=== PATIENT | male | born 1955 | race Caucasian/White ===

== ENCOUNTER 2017-01-17 17:24 | Inpatient (IN) | payer OTHER, MEDICAID ==
[~2017-01-17] VITALS: Ht 172.7 cm; Wt 48.3 kg
[~2017-01-17 17:24] MED LIST: AZIT500T4; BUDE10.2 IH; DIGO250T; ESCI10TA; ETHA400T; IPRA3AMP; MEGE400O2; PROAIR HFA8.5 GM; PROAIR HFA8.5 GM IH; RIFA300C3; TEMA15CA; TIOT18CA IH
[2017-01-17] MEDS ORDERED: methylPREDNISolone SOD SUCC PF 125 MG/2 ML VIAL. IV ONE (18:45)
[2017-01-17] MEDS ORDERED: ACETAMINOPHEN 325 MG TABLET. PO PRN (18:45)
[2017-01-17] MEDS ORDERED: IPRATRPIUM/ALBUTEROL 0.5/2.5MG 3 ML NEBU. NEB ONE (18:45)
[2017-01-17] MEDS: ONDANSETRON PF 4 MG/2 ML VIAL. IV PRN (18:58)
[2017-01-17 19:38] LABS: CREATININE 0.9 mg/dL (0.7-1.3); GFR 85.5; POTASSIUM 4.1 mmol/L (3.5-5.1)
[2017-01-17 19:39] LABS: BASO # 0.1 x10^3/uL (0.0-0.2); BASO % 1 % (0-3); EOS % 2 % (0-3); HEMOGLOBIN 12.2 g/dL (13.0-17.5); LYMPH # 0.9 x10^3/uL (1.0-4.8); LYMPH % 15 % (24-48); MEAN CORPUSCULAR HEMOGLOBIN 31 pg (25-35); MEAN CORPUSCULAR HGB CONC 33 g/dL (31-37); MEAN CORPUSCULAR VOLUME 94 fL (79-100); MONO % 9 % (0-9); NEUT % 73 % (31-73); PLATELET COUNT 305 x10^3/uL (140-400); RED BLOOD COUNT 3.92 x10^6/uL (4.30-5.70); RED CELL DISTRIBUTION WIDTH 14.9 % (11.5-14.5); WHITE BLOOD COUNT 5.9 x10^3/uL (4.0-11.0)
[2017-01-17 19:44] LABS: ALBUMIN 3.1 g/dL (3.4-5.0); ALBUMIN/GLOBULIN RATIO 0.6 (1.0-1.7); TOTAL BILIRUBIN 0.3 mg/dL (0.2-1.0); TOTAL PROTEIN 8.5 g/dL (6.4-8.2)
[2017-01-17 19:47] LABS: OBC FLU VALID
[2017-01-17] MEDS: IPRATRPIUM/ALBUTEROL 0.5/2.5MG 3 ML NEBU. NEB SCH (20:59)
[2017-01-17 22:45] VITALS: BP 106/61
[2017-01-17 23:31] VITALS: BP 106/61
--- NOTE | 2017-01-17 23:58 | PHYS DOC ---
Past Medical History Past Medical History: COPD, Pneumonia Additional Past Medical Histor: CARDIOMYOPATHY, MAC Past Surgical History: Other Additional Past Surgical Histo: bronchoscopy Alcohol Use: Occasionally Drug Use: Cocaine Adult General Chief Complaint Chief Complaint: SHORTNESS OF BREATH HPI HPI Patient is a 61 year old gentleman whose history significant for COPD presents to the ER today complaining of shortness of breath and generalized weakness. Patient reports that he was so weak earlier today that he felt his knees. Patient reports she been short of breath all day which is usual for him however he feels like he's been more short of breath than usual. Patient reports she lives alone. Patient has any fevers shaking chills. Patient reports he has a nonproductive cough which is chronic for him and has not changed. Patient reports he does not use any oxygen at home however he does have nebulizers. Patient denies any history of hypertension diabetes liver or kidney problems. Patient has no surgeries. Patient no longer smokes tracers does drugs. Patient is allergic to any medications. Patient's primary care physician is Dr. Pro and he reports that his saw straightener is Dr. Dorsey. Patient reports she does have a history significant for COPD and cardio myopathy. Patient's physical exam is significant for diminished breath sounds throughout. Patient is tachypneic and having a hard time speaking in full sentences. Patient is tachycardic heart rate of 105. EKG revealed sinus rhythm at 87 with no evidence of acute ischemia and PACs. Patient received albuterol by EMS as well as in the ED with Combivent included. Patient did improve however he is still pretty tachypneic and does not feel comfortable going home. Patient was given IV Cipro Medrol the ER and will be admitted for further oxygen and management of his dyspnea. The case was discussed with Dr. Knox and she has agreed to except the patient for further evaluation and treatment and management as an inpatient. Review of Systems Review of Systems Constitutional: Denies fever or chills [] Eyes: Denies change in visual acuity, redness, or eye pain [] All other review systems are negative except as documented in the history of present illness portion. Allergies Allergies Allergies Coded Allergies Type Severity Reaction Last Updated Verified No Known Drug Allergies 02/02/16 No Physical Exam Physical Exam Constitutional: Well developed, well nourished, no acute distress, non-toxic appearance. [] HENT: Normocephalic, atraumatic, bilateral external ears normal, oropharynx moist, no oral exudates, nose normal. [] Eyes: PERRLA, EOMI, conjunctiva normal, no discharge. [] Neck: Normal range of motion, no tenderness, supple, no stridor. [] Cardiovascular:Heart rate regular rhythm, no murmur [] Lungs & Thorax: Diminished Breath sounds bilaterally Abdomen: Bowel sounds normal, soft, no tenderness, no masses, no pulsatile masses. [] Skin: Warm, dry, no erythema, no rash. [] Back: No tenderness, no CVA tenderness. [] Extremities: No tenderness, no cyanosis, no clubbing, ROM intact, no edema. [] Neurologic: Alert and oriented X 3, normal motor function, normal sensory function, no focal deficits noted. [] Psychologic: Affect normal, judgement normal, mood normal. [] Current Patient Data Vital Signs Vital Signs Date Time Temp Pulse Resp B/P Pulse Ox O2 Delivery O2 Flow Rate FiO2 01/17/17 17:34 97.8 86 36 120/75 94 Room Air 97.8 EKG EKG [] Radiology/Procedures Radiology/Procedures [] Unchanged from prior chest x-ray labs unremarkable Course & Med Decision Making Course & Med Decision Making Pertinent Labs and Imaging studies reviewed. (See chart for details) [] Dragon Disclaimer Dragon Disclaimer This electronic medical record was generated, in whole or in part, using a voice recognition dictation system. Departure Departure Impression: Primary Impression: COPD (chronic obstructive pulmonary disease) Additional Impressions: COPD exacerbation Failure to thrive Disposition: ADMITTED INPATIENT Admitting Physician: Deborah Keith Condition: GUARDED Referrals: DEBORAH KEITH MD (PCP) Problem Qualifiers DYLAN SARAVIA MD Jan 17, 2017 23:58
--- NOTE | 2017-01-18 00:10 | ACF ---
Admission Forms Criteria COPD Clinical Indications for Admission to Inpatient Care (Place 'X' for any and all applicable criteria): Admission is indicated for ANY ONE of the following (1)(2)(3): [ X]I. Acute exacerbation by high-risk comorbidity (e.g., pneumonia, dysrhythmia, heart failure, pleural effusion, pneumothorax) or severe underlying COPD (e.g., steroid dependent) [ ]II. Inpatient admission required rather than observation care (see Chronic Obstructive Pulmonary Disease: Observation Care) because of ANY ONE of the following: [ ]a) New or pre-existing signs or symptoms of COPD (eg, dyspnea or Tachypnea at rest or with minimal activity) that persist despite outpatient and observation care treatment [ ]b) New-onset hypoxemia (room air SaO2 less than 90%, PO2 less than 60 mm Hg (8.0 kPa)) that persists despite outpatient and observation care treatment [ ]c) Worsening of pre-existing hypoxemia (eg, new or increased requirement for supplemental oxygen to maintain oxygenation at baseline level) that persists despite outpatient and observation care treatment, with oxygen treatment needs performable only in acute inpatient setting [ ]d) Hypercarbia (PCO2 greater than 40 mm Hg (5.3 kPa))-induced respiratory acidosis (pH less than 7.35) that persists despite outpatient and observation care treatment [ ]e) Supplemental oxygen or respiratory treatments for over 24 hours that are performable only in acute inpatient setting [ ]f) Chest tube placement with active evacuation (e.g., suction, drainage) (5) [ ]g) Other condition, treatment or monitoring requiring inpatient admission [ ]III. Planned invasive surgical or diagnostic procedures requiring acute- care hospitalization [ ]IV. Acute respiratory failure (e.g., uncompensated hypercarbia, severe hypoxemia) [ ]V. Severe comorbid condition (e.g., severe steroid myopathy, acute vertebral fracture) that has acutely worsened pulmonary function [ ]. Confusion state, lethargy, obtundation, stupor or coma Extended stay beyond goal length of stay may be needed for (31)(32): [ ]a ) Respiratory Failure. [ ]b) Severe or persisting hypoxemia or hypercarbia [ ]c) Severe or persistent dyspnea [ ]d) Comorbidities (e.g. chronic heart failure, atrial fibrillation with rapid response, pneumonia) [ ]e) Malnutrition The original [facility] content created by [facility] has been revised. The portions of the content which have been revised are identified through the use of italic text or in bold, and [facility] has neither reviewed nor approved the modified material. All other unmodified content is copyright [facility]. Please see references footnoted in the original [facility] edition 2016 Admission Criteria Met?: Yes HARDY JONES Jan 18, 2017 00:10
[2017-01-18] MEDS ORDERED: IPRATRPIUM/ALBUTEROL 0.5/2.5MG 3 ML NEBU. NEB ONE (02:00)
[2017-01-18 03:00] VITALS: BP 93/54
[2017-01-18 06:13] LABS: BILIRUBIN,URINE NEGATIVE (NEG); GLUCOSE,URINE NEGATIVE (NEG); NITRITE,URINE NEGATIVE (NEG); PROTEIN,URINE NEGATIVE (NEG-TRACE); UROBILINOGEN,URINE 0.2 mg/dL (0.2 mg/dL)
[2017-01-18 06:34] LABS: BACTERIA,URINE 0 /HPF (0-FEW); RBC,URINE 0 /HPF (0-2); SQUAMOUS EPITHELIAL CELL,UR FEW /LPF; WBC,URINE 0 /HPF (0-4)
[2017-01-18 07:00] VITALS: BP 94/65
[2017-01-18] MEDS: IPRATRPIUM/ALBUTEROL 0.5/2.5MG 3 ML NEBU. NEB SCH (07:31)
[2017-01-18] MEDS: ONDANSETRON PF 4 MG/2 ML VIAL. IV PRN (07:54)
[2017-01-18] MEDS ORDERED: BUDESONIDE 0.5 MG/2 ML NEBU NEB SCH (08:00)
--- NOTE | 2017-01-18 08:07 | PDOC ---
Provider Note Provider Note [id number] dyspnea abnl cxr mac mild ae of copd bronchodilator. pulmicort anti mac ELIJAH VARELA MD Jan 18, 2017 08:07
--- NOTE | 2017-01-18 08:46 | RAD ---
Indication shortness of air. Cough. AP views of the chest were obtained and are compared to an exam 10/21/2016. Note is made of a CT examination of the chest 11/18/2016. Extensive chronic changes are noted in the chest. There is marked scarring at the left lung apex with associated retraction of the hilum superiorly. There are pleural-parenchymal changes at the left lung base. All these findings are similar to the previous exam. Heart and pulmonary vessels are similar. A significant change in the appearance of the chest when compared to the previous plain film exam is not seen. IMPRESSION: Extensive chronic changes. A definite acute finding or significant change compared to the prior study is not seen
[2017-01-18] MEDS ORDERED: NON FORMULARY ITEM (Budesonide/Formoterol Fumarate (Symbicort 160-4.5 Mcg Inhaler) 2 PUFF) IH SCH (09:00)
[2017-01-18] MEDS ORDERED: ESCITALOPRAM 10 MG TABLET. PO SCH (09:00)
[2017-01-18] MEDS ORDERED: riFAMpin 300 MG CAPSULE. PO SCH (09:00)
[2017-01-18] MEDS ORDERED: MEGESTROL 400 MG/10 ML ORAL.SUSP. PO SCH (09:00)
[2017-01-18] MEDS ORDERED: DIGOXIN 250 MCG TABLET PO SCH (09:00)
[2017-01-18] MEDS ORDERED: NON FORMULARY ITEM (Tiotropium Bromide (Spiriva) 1 CAP) IH SCH (09:00)
[2017-01-18] MEDS ORDERED: PREDNISONE 20 MG TABLET PO SCH (09:00)
[2017-01-18] MEDS ORDERED: PRED20TA PO (10:28)
[2017-01-18] MEDS ORDERED: LEVO500T38 PO (10:28)
--- NOTE | 2017-01-18 10:36 | PDOC3 ---
DATE OF ADMISSION Date of Admission 01/17/17 DATE OF DISCHARGE Discharge Date 01/18/17 CONSULTS Consults Pulmonary PROCEDURES Procedures CXR- extensive chronic changes, no definitive acute findings LABS Labs Laboratory Tests Test 01/17/17 19:00 01/17/17 19:15 01/18/17 05:50 Influenza Type A Antigen Negative (NEGATIVE) Influenza Type B Antigen Negative (NEGATIVE) White Blood Count 5.9x10^3/uL (4.0-11.0) Red Blood Count 3.92x10^6/uL (4.30-5.70) Hemoglobin 12.2g/dL (13.0-17.5) Hematocrit 37.0% (39.0-53.0) Mean Corpuscular Volume 94fL (79-100) Mean Corpuscular Hemoglobin 31pg (25-35) Mean Corpuscular Hemoglobin Concent 33g/dL (31-37) Red Cell Distribution Width 14.9% (11.5-14.5) Platelet Count 305x10^3/uL (140-400) Neutrophils (%) (Auto) 73% (31-73) Lymphocytes (%) (Auto) 15% (24-48) Monocytes (%) (Auto) 9% (0-9) Eosinophils (%) (Auto) 2% (0-3) Basophils (%) (Auto) 1% (0-3) Neutrophils # (Auto) 4.3x10^3uL (1.8-7.7) Lymphocytes # (Auto) 0.9x10^3/uL (1.0-4.8) Monocytes # (Auto) 0.5x10^3/uL (0.0-1.1) Eosinophils # (Auto) 0.1x10^3/uL (0.0-0.7) Basophils # (Auto) 0.1x10^3/uL (0.0-0.2) Sodium Level 136mmol/L (136-145) Potassium Level 4.1mmol/L (3.5-5.1) Chloride Level 100mmol/L (98-107) Carbon Dioxide Level 32mmol/L (21-32) Anion Gap 4 (6-14) Blood Urea Nitrogen 33mg/dL (8-26) Creatinine 0.9mg/dL (0.7-1.3) Estimated GFR (Cockcroft-Gault) 85.5 BUN/Creatinine Ratio 37 (6-20) Glucose Level 148mg/dL (70-99) Calcium Level 10.0mg/dL (8.5-10.1) Total Bilirubin 0.3mg/dL (0.2-1.0) Aspartate Amino Transf (AST/SGOT) 37U/L (15-37) Alanine Aminotransferase (ALT/SGPT) 37U/L (16-63) Alkaline Phosphatase 51U/L (46-116) Troponin I Quantitative < 0.017ng/mL (0.000-0.055) Total Protein 8.5g/dL (6.4-8.2) Albumin 3.1g/dL (3.4-5.0) Albumin/Globulin Ratio 0.6 (1.0-1.7) Urine Collection Type Unknown Urine Color Yellow Urine Clarity Clear Urine pH 6.0 Urine Specific [place] 1.020 Urine Protein Negativemg/dL (NEG-TRACE) Urine Glucose (UA) Negativemg/dL (NEG) Urine Ketones (Stick) Negativemg/dL (NEG) Urine Blood Negative (NEG) Urine Nitrite Negative (NEG) Urine Bilirubin Negative (NEG) Urine Urobilinogen Dipstick 0.2mg/dL (0.2 mg/dL) Urine Leukocyte Esterase Negative (NEG) Urine RBC 0/HPF (0-2) Urine WBC 0/HPF (0-4) Urine Squamous Epithelial Cells Few/LPF Urine Bacteria 0/HPF (0-FEW) Urine Mucus Slight/LPF MEDICATIONS Medications Medications reviewed and reconciled for discharge. CHEIF COMPLAINT Cheif Complaint "Panic" PAST MEDICAL HISTORY PMH Depression, Insomnia, Chronic Bronchitis, Mycobacterium Avium Infection, Severe Debility, Cardiomyopathy, History of pressure ulcers PAST SURGICAL HISTORY PSH Back Surgery x2, Hemorrhoid Surgery SOCIAL HISTORY SH History of smoking, quit 10 years ago. Drinks intermittently, used to drink daily. Single. Lives alone FAMILY HISTORY FH Mom- unknown cancer, Brother- Lung Cancer, Sister- Throat Cancer ALLERGIES Allergies Allergies Coded Allergies Type Severity Reaction Last Updated Verified No Known Drug Allergies 02/02/16 No MEDICATIONS Meds Medications reviewed. REVIEW OF SYSTEMS ROS A 14 point ROS was completed with the following noted as positive: Chronic productive cough with green/yellow sputum, but has thickened over the past couple of days, wheezing yesterday Other systems reviewed and negative. PHYSICAL EXAM Subjective Pt says that he had an episode yesterday where he could not catch his breath and he panicked. He says that he is feeling much better today. The only thing that he has noticed that has been different lately has been thicker productive sputum. He says that he is feeling better now and would like to go home. Objective GEN: cachetic, NAD, AOx3 HEENT: MMM, EOMI, no scleral icterus/injection Cardiac: RRR, no M/R/G Lungs: CTAB, regular breathing rate and effort Abd: non distended, NTTP Ext: no erythema/edema LE bilaterally Nuero: CN2-12 GI Vital Signs Vital Signs Date Time Temp Pulse Resp B/P Pulse Ox O2 Delivery O2 Flow Rate FiO2 01/18/17 09:25 71 94/65 01/18/17 08:00 Room Air 01/18/17 07:31 99 3.0 01/18/17 07:00 97.5 18 97.5 [facility] NOTE [facility] Note Pt is a 61yo CM admitted for COPD Exacerbation 1)COPD Exacerbation- pt is feeling better after receiving initial antibiotics and steroids. Will discharge on Prednisone 50mg qday and Levaquin. Pulmonary was following. 2)Hx MAC- pt on Rifampin daily 3)Cachexia- pt on Megace 4)PEM- mild 5)Cardiomyopathy- pt continued on Digoxin 250mcg 6)Depression- pt continued on Lexapro 7)Anemia- mild, no active bleeding 8)Hypotension- chronic, asymptomatic FOLLOW UP F/U Follow up with PCP within 2 weeks of D/C DISPOSITION Dispo Stable, Improved MARCO MAS MD Jan 18, 2017 10:36
[2017-01-18 10:58] VITALS: BP 96/60
--- NOTE | 2017-01-18 11:39 | EKG ---
[facility] [address] [place] [address] Test Date: 2017-01-17 Test Time: 17:30:32 Pat Name: DELFINO LEONARDO Department: Room: Gender: M [employer] Supervisor: : 1955 Requested By: DYLAN SARAVIA Order Number: [id number] Reading MD: Measurements Intervals [place] Rate: 87 P: 90 AK: 180 QRS: 84 QRSD: 66 T: 111 QT: 340 QTc: 410 Interpretive Statements SINUS RHYTHM ATRIAL PREMATURE COMPLEX(ES) QRS(T) CONTOUR ABNORMALITY CONSISTENT WITH ANTEROSEPTAL INFARCT PROBABLY OLD T ABNORMALITY IN ANTEROLATERAL LEADS INFEROLATERAL LEADS RI6.01 Unconfirmed report No previous ECG available for comparison
[2017-01-18] MEDS ORDERED: IPRATRPIUM/ALBUTEROL 0.5/2.5MG 3 ML NEBU. NEB SCH (12:00)
[2017-01-18] MEDS ORDERED: TEMAZEPAM 15 MG CAPSULE PO SCH (21:00)
--- NOTE | 2017-01-19 00:55 | CONS ---
DATE OF CONSULTATION: 01/18/2017 I was asked to see this 61-year-old gentleman for shortness of breath, cough, abnormal chest x-ray and CT of the chest and COPD exacerbation. HISTORY OF PRESENT ILLNESS: He does have COPD. He is on nebulizer treatment at home. He has MAC, which was diagnosed with Dr. Epstein and he is at home with hospice. He was admitted with increased shortness of breath, cough and he felt weak in his knees. In the Emergency Room, he appeared tachypneic. He improved with nebulizer treatment. He states that he has had increased cough, but it is improved today. He denies fever or chills. He has been weak. He was on Symbicort, which was stopped by Dr. Epstein. He is on medication for MAC. ALLERGIES: No known drug allergies. MEDICATIONS: Currently, he is on albuterol, Atrovent nebulizer. At home, he is on azithromycin, digoxin, ethambutol, Megace, rifampin. PAST MEDICAL HISTORY: COPD, MAC, abnormal chest x-ray and CT of the chest, cardiomyopathy. SOCIAL HISTORY: Positive for history of [id number] smoking, stopped smoking a few months ago. FAMILY HISTORY: There is no history of lung disease. REVIEW OF SYSTEMS: As mentioned as above, he denies runny nose, chest pain, gastroesophageal reflux symptoms. Other systems are otherwise negative. PHYSICAL EXAMINATION: GENERAL: This is a cachectic gentleman. HEENT: Normocephalic, atraumatic. Pupils equal, round, reactive to light. Throat is clear. Nose is clear. He has poor dentition. VITAL SIGNS: O2 saturation is 99% on 3 liters of oxygen, heart rate 69, blood pressure 100/60, temperature 98.4. NECK: There is no JVD, lymphadenopathy or thyromegaly. CARDIOVASCULAR: Regular rate and rhythm. Distant heart sounds. Chest expansion is normal. LUNGS: There are bibasilar crackles, a few end expiratory wheezing. ABDOMEN: Soft. Bowel sounds are good. There is no mass. EXTREMITIES: There is no edema. LYMPHATICS: There is no lymphadenopathy. SKIN: Chronic changes. NEUROLOGIC: Alert and oriented. LABORATORY DATA: I reviewed the following lab data. Chest x-ray shows irregular changes on the left lung. His CT of the chest done in 10/2016 did show cavitary abnormalities in his left apex with airspace opacification and volume loss and emphysematous changes. Sodium 136, potassium 4.1, chloride 100, CO2 of 32, glucose 148, BUN 33, creatinine 0.9. WBC 5.6, hemoglobin 12.2, platelets 305. Influenza A and B negative. IMPRESSION: 1. Dyspnea, multifactorial in etiology. 2. Mild acute exacerbation of chronic obstructive pulmonary disease. 3. Abnormal chest x-ray and CT of the chest. 4. History of MAC. 5. Malnutrition. 6. Ex-smoker. 7. Cardiomyopathy. PLAN AND RECOMMENDATIONS: 1. Titrate FiO2 to keep O2 saturation 92%. 2. Bronchodilator q.i.d. and p.r.n. shortness of breath. 3. Add Pulmicort b.i.d. 4. Continue MAC medication. 5. If the patient is not discharged, he would require DVT prophylaxis. 6. Monitor respiratory status very closely. 7. Code status was discussed with the patient. He would like to be DNR. 8. He would like to go back home with hospice. Thank you very much for allowing me to participate in care of this very nice gentleman. The findings and recommendations were discussed with the patient and RN. I have answered all of the patient's questions. He understood and agreed to proceed with the plan. ELIJAH VARELA M.D. : Richa JOB#: [id number] / [id number] JORGE
== END 2017-01-18 11:41 | disposition hospice, home (50) | DRG 191 ==
LOC: ER 17:24 → 5 NORTH 18:42
PROVIDERS: ADMIT Family Medicine; ATTEND Family Medicine
DX: J44.1 Chronic obstructive pulmonary disease with (acute) exacerbation (principal); I42.9 Cardiomyopathy, unspecified; R64 Cachexia; E44.1 Mild protein-calorie malnutrition; Z68.1 Body mass index [BMI] 19.9 or less, adult; D64.9 Anemia, unspecified; R62.7 Adult failure to thrive; Z60.2 Problems related to living alone; F32.9 Major depressive disorder, single episode, unspecified; Z80.1 Family history of malignant neoplasm of trachea, bronchus and lung; Z80.8 Family history of malignant neoplasm of other organs or systems; Z87.891 Personal history of nicotine dependence; Z79.899 Other long term (current) drug therapy
CPT/HCPCS: 36415; 71010; 80053; 81001; 84484; 85027; 87804; 93005; 94250; 94640; 94760; 96374; J2405; J2930; J7512; J7620; 99285-25

== ENCOUNTER 2017-02-01 14:30 | Inpatient (IN) | payer OTHER, MEDICAID ==
[~2017-02-01] VITALS: Ht 172.7 cm; Wt 43.3 kg
[~2017-02-01 14:30] MED LIST changes: +LEVO500T38 PO; +PRED20TA PO
[2017-02-01] MEDS ORDERED: IPRATRPIUM/ALBUTEROL 0.5/2.5MG 3 ML NEBU. ONE (14:38)
[2017-02-01] MEDS ORDERED: ALBUTEROL SULFATE 2.5 MG/3 ML NEBU. CONT NEB ONE (14:45)
[2017-02-01 15:09] LABS: BASO # 0.1 x10^3/uL (0.0-0.2); BASO % 1 % (0-3); EOS % 2 % (0-3); HEMATOCRIT 41.6 % (39.0-53.0); HEMOGLOBIN 14.1 g/dL (13.0-17.5); LYMPH # 0.9 x10^3/uL (1.0-4.8); LYMPH % 11 % (24-48); MEAN CORPUSCULAR HEMOGLOBIN 31 pg (25-35); MEAN CORPUSCULAR HGB CONC 34 g/dL (31-37); MEAN CORPUSCULAR VOLUME 92 fL (79-100); MONO % 10 % (0-9); NEUT % 76 % (31-73); PLATELET COUNT 363 x10^3/uL (140-400); RED BLOOD COUNT 4.52 x10^6/uL (4.30-5.70); RED CELL DISTRIBUTION WIDTH 15.1 % (11.5-14.5); WHITE BLOOD COUNT 8.4 x10^3/uL (4.0-11.0)
--- NOTE | 2017-02-01 15:19 | EKG ---
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
[2017-02-01 15:22] LABS: CALCIUM 10.1 mg/dL (8.5-10.1); CREATININE 0.8 mg/dL (0.7-1.3); POTASSIUM 4.2 mmol/L (3.5-5.1)
--- NOTE | 2017-02-01 16:27 | PHYS DOC ---
Past Medical History Past Medical History: COPD, Pneumonia Additional Past Medical Histor: CARDIOMYOPATHY, MAC Past Surgical History: Other Additional Past Surgical Histo: bronchoscopy Alcohol Use: Occasionally Drug Use: Cocaine Social History Narrative: SMOKES COCAINE SEVERL TIMES PER MONTH LAST USE 01/31/17 Adult General Chief Complaint Chief Complaint: SHORTNESS OF BREATH HPI HPI Patient is a 61 year old male who presents by EMS with 1 day of dyspnea and increased cough. States he has chronic unchanged sputum with no color changes. States she also has slight rhinorrhea today. He denies fever or chills, nausea or vomiting, abdominal pain, chest pain, hemoptysis, leg pain or swelling. States his last COPD exacerbation was approximately 2 weeks ago. He used home nebulizer without complete relief prior to calling EMS. States he is not currently using Symbicort for the past month because he was told not to. States he is using approximately 3 minutes of each nebulized solution at home 3 times per day because that's what he was told to do. Review of Systems Review of Systems Constitutional: Denies fever or chills [] Eyes: Denies change in visual acuity, redness, or eye pain [] HENT: Denies nasal congestion or sore throat [] Respiratory: Has cough and shortness of breath [] Cardiovascular: No additional information not addressed in HPI [] GI: Denies abdominal pain, nausea, vomiting, bloody stools or diarrhea [] : Denies dysuria or hematuria [] Musculoskeletal: Denies back pain or joint pain [] Integument: Denies rash or skin lesions [] Neurologic: Denies headache, focal weakness or sensory changes [] Endocrine: Denies polyuria or polydipsia [] Current Medications Current Medications Current Medications Medications (Trade) Dose Ordered Sig/Ken Start Time Stop Time Status Last Admin Dose Admin Albuterol Sulfate (Ventolin Neb Soln) 10 mg 1X ONCE 02/01/17 14:45 02/01/17 14:50 DC 02/01/17 14:53 10 MG Albuterol/ Ipratropium (Duoneb) 3 ml STK-MED ONCE 02/01/17 14:38 02/01/17 14:39 DC Allergies Allergies Allergies Coded Allergies Type Severity Reaction Last Updated Verified No Known Drug Allergies 02/02/16 No Physical Exam Physical Exam Constitutional: Very thin, no acute distress, non-toxic appearance. [] HENT: Normocephalic, atraumatic, bilateral external ears normal, oropharynx moist, no oral exudates, nose normal. [] Eyes: PERRLA, EOMI. [] Neck: Normal range of motion, supple, no stridor. [] Cardiovascular: Regular tachycardia [] Lungs & Thorax: Bilateral wheezing, tachypnea, increased work of breathing, speaking in short sentences [] Abdomen: Bowel sounds normal, soft, no tenderness. [] Skin: Warm, dry, no erythema, no rash. [] Back: Normal range of motion. [] Extremities: No tenderness, ROM intact, no edema. [] Neurologic: Alert and oriented X 3, normal motor function, normal sensory function, no focal deficits noted. [] Psychologic: Affect normal, judgement normal, mood normal. [] Current Patient Data Vital Signs Vital Signs Date Time Temp Pulse Resp B/P Pulse Ox O2 Delivery O2 Flow Rate FiO2 02/01/17 14:52 96 Room Air 02/01/17 14:30 111 26 136/70 Lab Values Laboratory Tests Test 02/01/17 15:00 White Blood Count 8.4x10^3/uL (4.0-11.0) Red Blood Count 4.52x10^6/uL (4.30-5.70) Hemoglobin 14.1g/dL (13.0-17.5) Hematocrit 41.6% (39.0-53.0) Mean Corpuscular Volume 92fL (79-100) Mean Corpuscular Hemoglobin 31pg (25-35) Mean Corpuscular Hemoglobin Concent 34g/dL (31-37) Red Cell Distribution Width 15.1% (11.5-14.5) H Platelet Count 363x10^3/uL (140-400) Neutrophils (%) (Auto) 76% (31-73) H Lymphocytes (%) (Auto) 11% (24-48) L Monocytes (%) (Auto) 10% (0-9) H Eosinophils (%) (Auto) 2% (0-3) Basophils (%) (Auto) 1% (0-3) Neutrophils # (Auto) 6.4x10^3uL (1.8-7.7) Lymphocytes # (Auto) 0.9x10^3/uL (1.0-4.8) L Monocytes # (Auto) 0.9x10^3/uL (0.0-1.1) Eosinophils # (Auto) 0.2x10^3/uL (0.0-0.7) Basophils # (Auto) 0.1x10^3/uL (0.0-0.2) Sodium Level 135mmol/L (136-145) L Potassium Level 4.2mmol/L (3.5-5.1) Chloride Level 98mmol/L (98-107) Carbon Dioxide Level 26mmol/L (21-32) Anion Gap 11 (6-14) Blood Urea Nitrogen 33mg/dL (8-26) H Creatinine 0.8mg/dL (0.7-1.3) Estimated GFR (Cockcroft-Gault) 98.0 Glucose Level 104mg/dL (70-99) H Calcium Level 10.1mg/dL (8.5-10.1) Laboratory Tests 02/01/17 15:00 Laboratory Tests 02/01/17 15:00 EKG EKG EKG as interpreted by me as sinus rhythm with PAC and PVC, rate 99, no ST-T changes, normal intervals Radiology/Procedures Radiology/Procedures Chest x-ray as interpreted by me with chronic emphysematous changes as well as chronic infiltrates in left lung with no acute changes Course & Med Decision Making Course & Med Decision Making Pertinent Labs and Imaging studies reviewed. (See chart for details) Workup is unremarkable. He was given medications in the emergency department with some improvement in his symptoms. However he remains with dyspnea and desatted to 86% walking in the emergency department. Discussed need for admission with Dr. Keith, who agrees to admit. Dragon Disclaimer Dragon Disclaimer This electronic medical record was generated, in whole or in part, using a voice recognition dictation system. Departure Departure Impression: Primary Impression: COPD exacerbation Disposition: ADMITTED INPATIENT Condition: STABLE Referrals: DEBORAH KEITH MD (PCP) Ruth MYLES MD Feb 01, 2017 16:27
[2017-02-01] MEDS ORDERED: IPRATRPIUM/ALBUTEROL 0.5/2.5MG 3 ML NEBU. NEB PRN (17:00)
[2017-02-01] MEDS ORDERED: ACETAMINOPHEN 325 MG TABLET. PO PRN (17:00)
[2017-02-01] MEDS ORDERED: ONDANSETRON PF 4 MG/2 ML VIAL. IV PRN (17:00)
[2017-02-01] MEDS ORDERED: PREDNISONE 20 MG TABLET PO ONE (17:15)
[2017-02-01 17:30] VITALS: BP 113/69
--- NOTE | 2017-02-01 17:44 | ACF ---
Admission Forms Criteria COPD Clinical Indications for Admission to Inpatient Care (Place 'X' for any and all applicable criteria): Admission is indicated for ANY ONE of the following (1)(2)(3): [ ]I. Acute exacerbation by high-risk comorbidity (e.g., pneumonia, dysrhythmia, heart failure, pleural effusion, pneumothorax) or severe underlying COPD (e.g., steroid dependent) [X]II. Inpatient admission required rather than observation care (see Chronic Obstructive Pulmonary Disease: Observation Care) because of ANY ONE of the following: [X]a) New or pre-existing signs or symptoms of COPD (eg, dyspnea or Tachypnea at rest or with minimal activity) that persist despite outpatient and observation care treatment [ ]b) New-onset hypoxemia (room air SaO2 less than 90%, PO2 less than 60 mm Hg (8.0 kPa)) that persists despite outpatient and observation care treatment [ ]c) Worsening of pre-existing hypoxemia (eg, new or increased requirement for supplemental oxygen to maintain oxygenation at baseline level) that persists despite outpatient and observation care treatment, with oxygen treatment needs performable only in acute inpatient setting [ ]d) Hypercarbia (PCO2 greater than 40 mm Hg (5.3 kPa))-induced respiratory acidosis (pH less than 7.35) that persists despite outpatient and observation care treatment [ ]e) Supplemental oxygen or respiratory treatments for over 24 hours that are performable only in acute inpatient setting [ ]f) Chest tube placement with active evacuation (e.g., suction, drainage) (5) [ ]g) Other condition, treatment or monitoring requiring inpatient admission [ ]III. Planned invasive surgical or diagnostic procedures requiring acute- care hospitalization [ ]IV. Acute respiratory failure (e.g., uncompensated hypercarbia, severe hypoxemia) [ ]V. Severe comorbid condition (e.g., severe steroid myopathy, acute vertebral fracture) that has acutely worsened pulmonary function [ ]. Confusion state, lethargy, obtundation, stupor or coma Extended stay beyond goal length of stay may be needed for (31)(32): [ ]a ) Respiratory Failure. [ ]b) Severe or persisting hypoxemia or hypercarbia [ ]c) Severe or persistent dyspnea [ ]d) Comorbidities (e.g. chronic heart failure, atrial fibrillation with rapid response, pneumonia) [ ]e) Malnutrition The original [facility] content created by [facility] has been revised. The portions of the content which have been revised are identified through the use of italic text or in bold, and [facility] has neither reviewed nor approved the modified material. All other unmodified content is copyright [facility]. Please see references footnoted in the original [facility] edition 2016 Admission Criteria Met?: Yes BASSEM ROBINS Feb 01, 2017 17:44
[2017-02-01] MEDS: FENTANYL PF 100 MCG/2 ML VIAL. IV PRN (18:22)
[2017-02-01 19:05] VITALS: BP 106/65
[2017-02-01 23:42] VITALS: BP 105/65
[2017-02-02 03:46] VITALS: BP 99/59
[2017-02-02 07:00] VITALS: BP 111/71
[2017-02-02] MEDS ORDERED: NON FORMULARY ITEM (Albuterol Sulfate (Proair Hfa Inhaler) 2 PUFF) PRN (08:45)
[2017-02-02] MEDS ORDERED: LEVOFLOXACIN 500 MG TABLET PO SCH (09:00)
[2017-02-02] MEDS: DIGOXIN 250 MCG TABLET PO SCH (09:00)
[2017-02-02] MEDS ORDERED: PREDNISONE 20 MG TABLET PO SCH (09:00)
[2017-02-02] MEDS: MEGESTROL 400 MG/10 ML ORAL.SUSP. PO SCH (09:00)
[2017-02-02] MEDS ORDERED: ALBUTEROL SULFATE 2.5 MG/3 ML NEBU. NEB PRN (09:00)
[2017-02-02] MEDS ORDERED: NON FORMULARY ITEM (Tiotropium Bromide (Spiriva) 1 CAP) IH SCH (09:00)
[2017-02-02] MEDS: BUDESONIDE 0.5 MG/2 ML NEBU NEB SCH ×2 (09:04→20:38)
[2017-02-02] MEDS ORDERED: PREDNISONE 20 MG TABLET PO ONE (09:15)
[2017-02-02] MEDS: ESCITALOPRAM 10 MG TABLET. PO SCH (09:28)
[2017-02-02] MEDS: ETHAMBUTOL HCL 400 MG TABLET PO SCH (09:30)
[2017-02-02] MEDS: riFAMpin 300 MG CAPSULE. PO SCH ×2 (09:31→21:27)
--- NOTE | 2017-02-02 10:44 | RAD ---
Examination: Single frontal view the chest History: History of dyspnea Comparison: 01/17/2017 Findings: The cardiomediastinal silhouette grossly appears unchanged. Marked scarring changes identified in the left apical lung with retraction of the hilum superiorly. Prominent appearing bilateral interstitial lung markings identified in the bilateral lungs particularly in the left upper lobe and in the left lower lobe of the lung. Blunting of the bilateral costophrenic angles probably secondary to scarring changes. Impression: Chronic fibrotic and scarring changes in the lungs as described above.
[2017-02-02 11:00] VITALS: BP 97/60
[2017-02-02] MEDS: IPRATRPIUM/ALBUTEROL 0.5/2.5MG 3 ML NEBU. IH SCH ×3 (11:07→20:37)
--- NOTE | 2017-02-02 11:09 | HP ---
ADMIT DATE: 02/01/2017 CHIEF COMPLAINT: Shortness of breath. HISTORY OF PRESENT ILLNESS AND HOSPITAL COURSE: This patient is a 61-year-old male with severe COPD, cardiomyopathy, and protein malnutrition with history of Mycobacterium avium. The patient states that he was in his usual state of health but began having increased shortness of breath over the last week. He sustained a fall in his bathtub injuring his buttocks but was still able to ambulate, but after this, became increasingly short of breath to the point where he was unable to tolerate activity. He came to the Emergency Room and was found to have O2 saturation of 88% with any activity but without evidence of infiltrate on chest x-ray. The patient was markedly debilitated and unable to care for himself. Therefore, he was admitted for pulmonary toilet and PT and OT modalities. PAST MEDICAL HISTORY: Significant for: 1. COPD. 2. Protein malnutrition. 3. Cardiomyopathy with an ejection fraction of 35% in the past. 4. History of Mycobacterium avium. 5. Major depression. FAMILY HISTORY: The patient's family history at this time is noncontributory. SOCIAL HISTORY: The patient does live alone. He no longer smokes and no longer uses alcohol, has a history of cocaine abuse. REVIEW OF SYSTEMS: The patient was doing well and improving after last hospital stay where he did require fdc rehabilitation until approximately the last week when he began having increasing cough and shortness of breath and there was increasing weakness and recent fall. The patient denies productive cough, fever, nausea, vomiting, chills, aches, or diarrhea. PHYSICAL EXAMINATION: GENERAL: This is an extremely cachectic-appearing male, in mild distress. He is alert and 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. HEENT: Reveals poor dentition. NECK: Supple. CARDIAC: Regular rate and rhythm. LUNGS: Reveal distant breath sounds with occasional wheezes. ABDOMEN: Soft, nontender. EXTREMITIES: Showed 2+ pulses without significant edema. NEUROLOGIC: Showed no unilateral findings. ASSESSMENT: 1. Karay-fx-ohcactg respiratory failure. 2. Chronic obstructive pulmonary disease exacerbation. 3. Severe protein malnutrition. PLAN: To admit the patient for pulmonary toilet, oxygen support as needed, and PT and OT modalities. Plan to transfer the patient to fdc if qualified after three hospital day stay. DEBORAH PICKENS MD DR: Demi JOB#: [id number] / [id number]
[2017-02-02] MEDS: FENTANYL PF 100 MCG/2 ML VIAL. IV PRN (13:04)
[2017-02-02 15:00] VITALS: BP 99/66
--- NOTE | 2017-02-02 16:38 | PDOC ---
PULMONARY PROGRESS NOTES Vitals Vital Signs Date Time Temp Pulse Resp B/P Pulse Ox O2 Delivery O2 Flow Rate FiO2 02/02/17 16:07 99 Room Air 02/02/17 15:00 97.4 44 20 99/66 97.4 02/02/17 11:09 2.0 General: Alert, No acute distress Lungs: Clear, Other Cardiovascular: S1, S2 Abdomen: Soft, Non-tender Extremities: No Edema, Other Labs Laboratory Tests Test 02/01/17 15:00 White Blood Count 8.4x10^3/uL (4.0-11.0) Red Blood Count 4.52x10^6/uL (4.30-5.70) Hemoglobin 14.1g/dL (13.0-17.5) Hematocrit 41.6% (39.0-53.0) Mean Corpuscular Volume 92fL (79-100) Mean Corpuscular Hemoglobin 31pg (25-35) Mean Corpuscular Hemoglobin Concent 34g/dL (31-37) Red Cell Distribution Width 15.1% (11.5-14.5) Platelet Count 363x10^3/uL (140-400) Neutrophils (%) (Auto) 76% (31-73) Lymphocytes (%) (Auto) 11% (24-48) Monocytes (%) (Auto) 10% (0-9) Eosinophils (%) (Auto) 2% (0-3) Basophils (%) (Auto) 1% (0-3) Neutrophils # (Auto) 6.4x10^3uL (1.8-7.7) Lymphocytes # (Auto) 0.9x10^3/uL (1.0-4.8) Monocytes # (Auto) 0.9x10^3/uL (0.0-1.1) Eosinophils # (Auto) 0.2x10^3/uL (0.0-0.7) Basophils # (Auto) 0.1x10^3/uL (0.0-0.2) Sodium Level 135mmol/L (136-145) Potassium Level 4.2mmol/L (3.5-5.1) Chloride Level 98mmol/L (98-107) Carbon Dioxide Level 26mmol/L (21-32) Anion Gap 11 (6-14) Blood Urea Nitrogen 33mg/dL (8-26) Creatinine 0.8mg/dL (0.7-1.3) Estimated GFR (Cockcroft-Gault) 98.0 Glucose Level 104mg/dL (70-99) Calcium Level 10.1mg/dL (8.5-10.1) Medications Active Scripts Medications Dose Route/Sig Days Date Category Dose Instructions Levaquin (Levofloxacin) 500 Mg Tablet 1 Tab PO DAILY 01/18/17 Rx Prednisone 20 Mg Tablet 50 Mg PO DAILY 01/18/17 Rx Duoneb 0.5-3(2.5) Mg/3 Ml (Albuterol/Ipratropium) 3 Ml Ampul.neb 2 Puff PRN Q4HRS PRN 10/22/16 Reported Megestrol Acetate 400 Mg/10 Ml Oral.susp 800 Mg DAILY 10/22/16 Reported Ethambutol Hcl 400 Mg Tablet 800 Mg DAILY 10/22/16 Reported Rifampin 300 Mg Capsule 300 Mg BID 10/22/16 Reported Digoxin 250 Mcg Tablet 0.25 Mg DAILY 10/22/16 Reported Hold for heart rate less than 90 Proair Hfa Inhaler (Albuterol Sulfate) 8.5 Gm Hfa.aer.ad 2 Puff PRN Q4HRS PRN 10/22/16 Reported Escitalopram Oxalate 10 Mg Tablet 10 Mg DAILY 10/22/16 Reported Temazepam 15 Mg Capsule 1 Cap HS 10/22/16 Reported Spiriva (Tiotropium [place]) 18 Mcg Cap.w.dev 1 Cap IH DAILY 02/02/16 Reported Proair Hfa Inhaler (Albuterol Sulfate) 8.5 Gm Hfa.aer.ad 2 Puff IH PRN Q4-6HRS 02/02/16 Reported Symbicort 160-4.5 Mcg Inhaler (Budesonide/Formoterol Fumarate) 10.2 Gm Hfa.aer.ad 2 Puff IH BID 02/02/16 Reported Impression . full noted dictated nothing new on cxr MAC continue same thanks WARNER SAUNDERS MD Feb 02, 2017 16:38
[2017-02-02 19:05] VITALS: BP 95/68
[2017-02-02] MEDS ORDERED: TEMAZEPAM 15 MG CAPSULE PO SCH (21:00)
[2017-02-02 23:05] VITALS: BP 107/70
[2017-02-03 03:05] VITALS: BP 106/68
[2017-02-03 04:11] LABS: BASO % 0 % (0-3); EOS % 2 % (0-3); HEMATOCRIT 38.5 % (39.0-53.0); HEMOGLOBIN 12.6 g/dL (13.0-17.5); LYMPH # 1.2 x10^3/uL (1.0-4.8); LYMPH % 20 % (24-48); MEAN CORPUSCULAR HEMOGLOBIN 31 pg (25-35); MEAN CORPUSCULAR HGB CONC 33 g/dL (31-37); MEAN CORPUSCULAR VOLUME 95 fL (79-100); MONO % 10 % (0-9); NEUT % 68 % (31-73); PLATELET COUNT 263 x10^3/uL (140-400); RED BLOOD COUNT 4.06 x10^6/uL (4.30-5.70); RED CELL DISTRIBUTION WIDTH 15.2 % (11.5-14.5); WHITE BLOOD COUNT 5.9 x10^3/uL (4.0-11.0)
[2017-02-03 04:38] LABS: ALBUMIN 2.7 g/dL (3.4-5.0); ALBUMIN/GLOBULIN RATIO 0.6 (1.0-1.7); CALCIUM 9.2 mg/dL (8.5-10.1); CREATININE 0.6 mg/dL (0.7-1.3); GFR 136.5; POTASSIUM 3.2 mmol/L (3.5-5.1); TOTAL BILIRUBIN 0.2 mg/dL (0.2-1.0); TOTAL PROTEIN 7.3 g/dL (6.4-8.2)
[2017-02-03 07:00] VITALS: BP 110/72
[2017-02-03] MEDS: BUDESONIDE 0.5 MG/2 ML NEBU NEB SCH ×2 (07:05→20:37)
[2017-02-03] MEDS: IPRATRPIUM/ALBUTEROL 0.5/2.5MG 3 ML NEBU. IH SCH ×4 (07:05→20:37)
[2017-02-03] MEDS: MEGESTROL 400 MG/10 ML ORAL.SUSP. PO SCH (09:00)
[2017-02-03] MEDS: ESCITALOPRAM 10 MG TABLET. PO SCH (09:35)
[2017-02-03] MEDS: riFAMpin 300 MG CAPSULE. PO SCH ×2 (09:36→21:16)
[2017-02-03] MEDS: ETHAMBUTOL HCL 400 MG TABLET PO SCH (09:36)
[2017-02-03] MEDS: DIGOXIN 250 MCG TABLET PO SCH (09:36)
--- NOTE | 2017-02-03 09:44 | PDOC ---
PROGRESS NOTES Subjective Subjective Patient feeling better. PT and OT begun. Pulmonary toilet continuing. Patient complained of difficulty sleeping. Low potassium noted on labs today. Objective Objective Vital Signs Date Time Temp Pulse Resp B/P Pulse Ox O2 Delivery O2 Flow Rate FiO2 02/03/17 09:36 72 110/72 02/03/17 07:07 95 Room Air 02/03/17 07:00 97.7 16 2.0 97.7 Intake and Output 02/03/17 07:00 Intake Total 480 ml Balance 480 ml Intake Oral 480 ml # Voids 2 Physical Exam Abdomen: Normal bowel sounds Heart: Regular rate Extremities: No edema General: Alert Lungs: Clear to auscultation Assessment Assessment Problems Medical Problems: (1) Acute and chronic respiratory failure Status: Acute (2) COPD exacerbation Status: Acute Acute on chronic respiratory failure. COPD Protein malnutrition moderate Debilitation Major depression MAC pulmonary infection-stable Plan Plan of Care Continue PT modalities assisted eval Wean by mouth steroids Supplement potassium Add sleeping pill Comment Review of Relevant I have reviewed the following items jamila (where applicable) has been applied. Labs Laboratory Tests Test 02/01/17 15:00 02/03/17 03:00 White Blood Count 8.4x10^3/uL (4.0-11.0) 5.9x10^3/uL (4.0-11.0) Red Blood Count 4.52x10^6/uL (4.30-5.70) 4.06x10^6/uL (4.30-5.70) Hemoglobin 14.1g/dL (13.0-17.5) 12.6g/dL (13.0-17.5) Hematocrit 41.6% (39.0-53.0) 38.5% (39.0-53.0) Mean Corpuscular Volume 92fL (79-100) 95fL (79-100) Mean Corpuscular Hemoglobin 31pg (25-35) 31pg (25-35) Mean Corpuscular Hemoglobin Concent 34g/dL (31-37) 33g/dL (31-37) Red Cell Distribution Width 15.1% (11.5-14.5) 15.2% (11.5-14.5) Platelet Count 363x10^3/uL (140-400) 263x10^3/uL (140-400) Neutrophils (%) (Auto) 76% (31-73) 68% (31-73) Lymphocytes (%) (Auto) 11% (24-48) 20% (24-48) Monocytes (%) (Auto) 10% (0-9) 10% (0-9) Eosinophils (%) (Auto) 2% (0-3) 2% (0-3) Basophils (%) (Auto) 1% (0-3) 0% (0-3) Neutrophils # (Auto) 6.4x10^3uL (1.8-7.7) 4.0x10^3uL (1.8-7.7) Lymphocytes # (Auto) 0.9x10^3/uL (1.0-4.8) 1.2x10^3/uL (1.0-4.8) Monocytes # (Auto) 0.9x10^3/uL (0.0-1.1) 0.6x10^3/uL (0.0-1.1) Eosinophils # (Auto) 0.2x10^3/uL (0.0-0.7) 0.1x10^3/uL (0.0-0.7) Basophils # (Auto) 0.1x10^3/uL (0.0-0.2) 0.0x10^3/uL (0.0-0.2) Sodium Level 135mmol/L (136-145) 143mmol/L (136-145) Potassium Level 4.2mmol/L (3.5-5.1) 3.2mmol/L (3.5-5.1) Chloride Level 98mmol/L (98-107) 105mmol/L (98-107) Carbon Dioxide Level 26mmol/L (21-32) 32mmol/L (21-32) Anion Gap 11 (6-14) 6 (6-14) Blood Urea Nitrogen 33mg/dL (8-26) 25mg/dL (8-26) Creatinine 0.8mg/dL (0.7-1.3) 0.6mg/dL (0.7-1.3) Estimated GFR (Cockcroft-Gault) 98.0 136.5 Glucose Level 104mg/dL (70-99) 126mg/dL (70-99) Calcium Level 10.1mg/dL (8.5-10.1) 9.2mg/dL (8.5-10.1) BUN/Creatinine Ratio 42 (6-20) Total Bilirubin 0.2mg/dL (0.2-1.0) Aspartate Amino Transf (AST/SGOT) 47U/L (15-37) Alanine Aminotransferase (ALT/SGPT) 56U/L (16-63) Alkaline Phosphatase 58U/L (46-116) Total Protein 7.3g/dL (6.4-8.2) Albumin 2.7g/dL (3.4-5.0) Albumin/Globulin Ratio 0.6 (1.0-1.7) Laboratory Tests Test 02/03/17 03:00 White Blood Count 5.9x10^3/uL (4.0-11.0) Red Blood Count 4.06x10^6/uL (4.30-5.70) Hemoglobin 12.6g/dL (13.0-17.5) Hematocrit 38.5% (39.0-53.0) Mean Corpuscular Volume 95fL (79-100) Mean Corpuscular Hemoglobin 31pg (25-35) Mean Corpuscular Hemoglobin Concent 33g/dL (31-37) Red Cell Distribution Width 15.2% (11.5-14.5) Platelet Count 263x10^3/uL (140-400) Neutrophils (%) (Auto) 68% (31-73) Lymphocytes (%) (Auto) 20% (24-48) Monocytes (%) (Auto) 10% (0-9) Eosinophils (%) (Auto) 2% (0-3) Basophils (%) (Auto) 0% (0-3) Neutrophils # (Auto) 4.0x10^3uL (1.8-7.7) Lymphocytes # (Auto) 1.2x10^3/uL (1.0-4.8) Monocytes # (Auto) 0.6x10^3/uL (0.0-1.1) Eosinophils # (Auto) 0.1x10^3/uL (0.0-0.7) Basophils # (Auto) 0.0x10^3/uL (0.0-0.2) Sodium Level 143mmol/L (136-145) Potassium Level 3.2mmol/L (3.5-5.1) Chloride Level 105mmol/L (98-107) Carbon Dioxide Level 32mmol/L (21-32) Anion Gap 6 (6-14) Blood Urea Nitrogen 25mg/dL (8-26) Creatinine 0.6mg/dL (0.7-1.3) Estimated GFR (Cockcroft-Gault) 136.5 BUN/Creatinine Ratio 42 (6-20) Glucose Level 126mg/dL (70-99) Calcium Level 9.2mg/dL (8.5-10.1) Total Bilirubin 0.2mg/dL (0.2-1.0) Aspartate Amino Transf (AST/SGOT) 47U/L (15-37) Alanine Aminotransferase (ALT/SGPT) 56U/L (16-63) Alkaline Phosphatase 58U/L (46-116) Total Protein 7.3g/dL (6.4-8.2) Albumin 2.7g/dL (3.4-5.0) Albumin/Globulin Ratio 0.6 (1.0-1.7) Medications Current Medications Albuterol/ Ipratropium (Duoneb) 3 ml STK-MED ONCE .ROUTE ; Start 02/01/17 at 14: 38; Stop 02/01/17 at 14:39; Status DC Albuterol Sulfate (Ventolin Neb Soln) 10 mg 1X ONCE CONT NEB Last administered on 02/01/17 14:53; Start 02/01/17 at 14:45; Stop 02/01/17 at 14:50; Status DC Ondansetron HCl (Zofran) 4 mg PRN Q8HRS PRN IV NAUSEA/VOMITING; Start 02/01/17 at 17:00; Stop 02/02/17 at 16:59; Status DC Fentanyl Citrate (Fentanyl 2ml Vial) 50 mcg PRN Q2HR PRN IV PAIN Last administered on 02/02/17 13:04; Start 02/01/17 at 17:00; Stop 02/02/17 at 16:59; Status DC Acetaminophen (Tylenol) 650 mg PRN Q4HRS PRN PO FEVER; Start 02/01/17 at 17:00; Stop 02/02/17 at 16:59; Status DC Albuterol/ Ipratropium (Duoneb) 3 ml PRN QID PRN NEB dyspnea Last administered on 02/01/17 19:10; Start 02/01/17 at 17:00; Stop 02/02/17 at 14:05; Status DC Prednisone (Prednisone) 60 mg 1X ONCE PO Last administered on 02/01/17 18:21; Start 02/01/17 at 17:15; Stop 02/01/17 at 17:16; Status DC Digoxin (Lanoxin) 250 mcg DAILY PO Last administered on 02/03/17 09:36; Start 02/02/17 at 09:00 Escitalopram Oxalate (Lexapro) 10 mg DAILY PO Last administered on 02/03/17 09: 35; Start 02/02/17 at 09:00 Ethambutol HCl (Myambutol) 800 mg DAILY PO Last administered on 02/03/17 09:36 ; Start 02/02/17 at 09:00 Albuterol/ Ipratropium (Duoneb) 3 ml RTQID IH Last administered on 02/03/17 07: 05; Start 02/02/17 at 12:00 Levofloxacin (Levaquin) 500 mg DAILY PO ; Start 02/02/17 at 09:00; Stop 02/02/17 at 09:00; Status DC Prednisone (Prednisone) 50 mg DAILY PO ; Start 02/02/17 at 09:00; Stop 02/02/17 at 09:00; Status DC Rifampin (Rifadin) 300 mg BID PO Last administered on 02/03/17 09:36; Start 02/02/17 at 09:00 Temazepam (Restoril) 15 mg HS PO ; Start 02/02/17 at 21:00; Stop 02/02/17 at 21:00 ; Status DC Albuterol Sulfate (Ventolin Neb Soln) 2.5 mg PRN Q4HRS PRN NEB SHORTNESS OF BREATH Last administered on 02/02/17 09:04; Start 02/02/17 at 09:00 Non-Formulary Medication 2 puff PRN Q4HRS PRN .ROUTE SHORTNESS OF BREATH; Start 02/02/17 at 08:45; Status UNV Budesonide (Pulmicort) 0.5 mg RTBID NEB Last administered on 02/03/17 07:05; Start 02/02/17 at 09:00 Megestrol Acetate (Megace) 800 mg DAILY PO ; Start 02/02/17 at 09:00 Non-Formulary Medication 1 cap DAILY IH ; Start 02/02/17 at 09:00; Stop 02/02/17 at 09:00; Status DC Prednisone (Prednisone) 60 mg 1X ONCE PO Last administered on 02/02/17 09:29; Start 02/02/17 at 09:15; Stop 02/02/17 at 09:16; Status DC Active Scripts Active Levaquin (Levofloxacin) 500 Mg Tablet 1 Tab PO DAILY Prednisone 20 Mg Tablet 50 Mg PO DAILY Reported Duoneb 0.5-3(2.5) Mg/3 Ml (Albuterol/Ipratropium) 3 Ml Ampul.neb 2 Puff PRN Q4HRS PRN Megestrol Acetate 400 Mg/10 Ml Oral.susp 800 Mg DAILY Ethambutol Hcl 400 Mg Tablet 800 Mg DAILY Rifampin 300 Mg Capsule 300 Mg BID Digoxin 250 Mcg Tablet 0.25 Mg DAILY Hold for heart rate less than 90 Proair Hfa Inhaler (Albuterol Sulfate) 8.5 Gm Hfa.aer.ad 2 Puff PRN Q4HRS PRN Escitalopram Oxalate 10 Mg Tablet 10 Mg DAILY Temazepam 15 Mg Capsule 1 Cap HS Spiriva (Tiotropium [place]) 18 Mcg Cap.w.dev 1 Cap IH DAILY Proair Hfa Inhaler (Albuterol Sulfate) 8.5 Gm Hfa.aer.ad 2 Puff IH PRN Q4-6HRS Symbicort 160-4.5 Mcg Inhaler (Budesonide/Formoterol Fumarate) 10.2 Gm Hfa.aer.ad 2 Puff IH BID Vitals/I & O Vital Sign - Last 24 Hours 02/02/17 02/02/17 02/02/17 02/02/17 11:00 11:09 13:04 13:34 Temp 97.6 97.6 Pulse 86 Resp 20 16 22 B/P 97/60 Pulse Ox 94 O2 Delivery Room Air Nasal Cannula Room Air Room Air O2 Flow Rate 2.0 02/02/17 02/02/17 02/02/17 02/02/17 15:00 16:07 19:05 20:00 Temp 97.4 97.5 97.4 97.5 Pulse 44 86 Resp 20 20 B/P 99/66 95/68 Pulse Ox 91 99 94 O2 Delivery Room Air Room Air Room Air Room Air 02/02/17 02/02/17 02/02/17 02/03/17 20:40 20:41 23:05 03:05 Temp 98.6 98.1 98.6 98.1 Pulse 83 74 Resp 20 20 B/P 107/70 106/68 Pulse Ox 97 97 92 93 O2 Delivery Room Air Room Air Room Air Room Air 02/03/17 02/03/17 02/03/17 07:00 07:07 09:36 Temp 97.7 97.7 Pulse 72 72 Resp 16 B/P 110/72 110/72 Pulse Ox 93 95 O2 Delivery Nasal Cannula Room Air O2 Flow Rate 2.0 Intake and Output 02/02/17 02/02/17 02/03/17 15:00 23:00 07:00 Intake Total 480 ml Balance 480 ml DEBORAH PICKENS MD Feb 03, 2017 09:44
[2017-02-03] MEDS ORDERED: TEMAZEPAM 15 MG CAPSULE PO PRN (09:45)
[2017-02-03] MEDS ORDERED: POTASSIUM CHLORIDE 20 MEQ TABLET.ER. PO ONE (09:45)
[2017-02-03 11:00] VITALS: BP 107/73
[2017-02-03] MEDS: PREDNISONE 20 MG TABLET PO SCH (11:24)
--- NOTE | 2017-02-03 13:27 | PDOC ---
PULMONARY PROGRESS NOTES Subjective feels better Vitals Vital Signs Date Time Temp Pulse Resp B/P Pulse Ox O2 Delivery O2 Flow Rate FiO2 02/03/17 11:08 95 Room Air 02/03/17 11:00 97.5 71 16 107/73 2.0 97.5 General: Alert, No acute distress Lungs: Other (decrease bs) Cardiovascular: S1, S2 Abdomen: Soft, Non-tender Neuro Exam: Alert Extremities: No Edema, Other Skin: Warm Labs Laboratory Tests Test 02/01/17 15:00 02/03/17 03:00 White Blood Count 8.4x10^3/uL (4.0-11.0) 5.9x10^3/uL (4.0-11.0) Red Blood Count 4.52x10^6/uL (4.30-5.70) 4.06x10^6/uL (4.30-5.70) Hemoglobin 14.1g/dL (13.0-17.5) 12.6g/dL (13.0-17.5) Hematocrit 41.6% (39.0-53.0) 38.5% (39.0-53.0) Mean Corpuscular Volume 92fL (79-100) 95fL (79-100) Mean Corpuscular Hemoglobin 31pg (25-35) 31pg (25-35) Mean Corpuscular Hemoglobin Concent 34g/dL (31-37) 33g/dL (31-37) Red Cell Distribution Width 15.1% (11.5-14.5) 15.2% (11.5-14.5) Platelet Count 363x10^3/uL (140-400) 263x10^3/uL (140-400) Neutrophils (%) (Auto) 76% (31-73) 68% (31-73) Lymphocytes (%) (Auto) 11% (24-48) 20% (24-48) Monocytes (%) (Auto) 10% (0-9) 10% (0-9) Eosinophils (%) (Auto) 2% (0-3) 2% (0-3) Basophils (%) (Auto) 1% (0-3) 0% (0-3) Neutrophils # (Auto) 6.4x10^3uL (1.8-7.7) 4.0x10^3uL (1.8-7.7) Lymphocytes # (Auto) 0.9x10^3/uL (1.0-4.8) 1.2x10^3/uL (1.0-4.8) Monocytes # (Auto) 0.9x10^3/uL (0.0-1.1) 0.6x10^3/uL (0.0-1.1) Eosinophils # (Auto) 0.2x10^3/uL (0.0-0.7) 0.1x10^3/uL (0.0-0.7) Basophils # (Auto) 0.1x10^3/uL (0.0-0.2) 0.0x10^3/uL (0.0-0.2) Sodium Level 135mmol/L (136-145) 143mmol/L (136-145) Potassium Level 4.2mmol/L (3.5-5.1) 3.2mmol/L (3.5-5.1) Chloride Level 98mmol/L (98-107) 105mmol/L (98-107) Carbon Dioxide Level 26mmol/L (21-32) 32mmol/L (21-32) Anion Gap 11 (6-14) 6 (6-14) Blood Urea Nitrogen 33mg/dL (8-26) 25mg/dL (8-26) Creatinine 0.8mg/dL (0.7-1.3) 0.6mg/dL (0.7-1.3) Estimated GFR (Cockcroft-Gault) 98.0 136.5 Glucose Level 104mg/dL (70-99) 126mg/dL (70-99) Calcium Level 10.1mg/dL (8.5-10.1) 9.2mg/dL (8.5-10.1) BUN/Creatinine Ratio 42 (6-20) Total Bilirubin 0.2mg/dL (0.2-1.0) Aspartate Amino Transf (AST/SGOT) 47U/L (15-37) Alanine Aminotransferase (ALT/SGPT) 56U/L (16-63) Alkaline Phosphatase 58U/L (46-116) Total Protein 7.3g/dL (6.4-8.2) Albumin 2.7g/dL (3.4-5.0) Albumin/Globulin Ratio 0.6 (1.0-1.7) Laboratory Tests Test 02/03/17 03:00 White Blood Count 5.9x10^3/uL (4.0-11.0) Red Blood Count 4.06x10^6/uL (4.30-5.70) Hemoglobin 12.6g/dL (13.0-17.5) Hematocrit 38.5% (39.0-53.0) Mean Corpuscular Volume 95fL (79-100) Mean Corpuscular Hemoglobin 31pg (25-35) Mean Corpuscular Hemoglobin Concent 33g/dL (31-37) Red Cell Distribution Width 15.2% (11.5-14.5) Platelet Count 263x10^3/uL (140-400) Neutrophils (%) (Auto) 68% (31-73) Lymphocytes (%) (Auto) 20% (24-48) Monocytes (%) (Auto) 10% (0-9) Eosinophils (%) (Auto) 2% (0-3) Basophils (%) (Auto) 0% (0-3) Neutrophils # (Auto) 4.0x10^3uL (1.8-7.7) Lymphocytes # (Auto) 1.2x10^3/uL (1.0-4.8) Monocytes # (Auto) 0.6x10^3/uL (0.0-1.1) Eosinophils # (Auto) 0.1x10^3/uL (0.0-0.7) Basophils # (Auto) 0.0x10^3/uL (0.0-0.2) Sodium Level 143mmol/L (136-145) Potassium Level 3.2mmol/L (3.5-5.1) Chloride Level 105mmol/L (98-107) Carbon Dioxide Level 32mmol/L (21-32) Anion Gap 6 (6-14) Blood Urea Nitrogen 25mg/dL (8-26) Creatinine 0.6mg/dL (0.7-1.3) Estimated GFR (Cockcroft-Gault) 136.5 BUN/Creatinine Ratio 42 (6-20) Glucose Level 126mg/dL (70-99) Calcium Level 9.2mg/dL (8.5-10.1) Total Bilirubin 0.2mg/dL (0.2-1.0) Aspartate Amino Transf (AST/SGOT) 47U/L (15-37) Alanine Aminotransferase (ALT/SGPT) 56U/L (16-63) Alkaline Phosphatase 58U/L (46-116) Total Protein 7.3g/dL (6.4-8.2) Albumin 2.7g/dL (3.4-5.0) Albumin/Globulin Ratio 0.6 (1.0-1.7) Medications Active Scripts Medications Dose Route/Sig Days Date Category Dose Instructions Levaquin (Levofloxacin) 500 Mg Tablet 1 Tab PO DAILY 01/18/17 Rx Prednisone 20 Mg Tablet 50 Mg PO DAILY 01/18/17 Rx Duoneb 0.5-3(2.5) Mg/3 Ml (Albuterol/Ipratropium) 3 Ml Ampul.neb 2 Puff PRN Q4HRS PRN 10/22/16 Reported Megestrol Acetate 400 Mg/10 Ml Oral.susp 800 Mg DAILY 10/22/16 Reported Ethambutol Hcl 400 Mg Tablet 800 Mg DAILY 10/22/16 Reported Rifampin 300 Mg Capsule 300 Mg BID 10/22/16 Reported Digoxin 250 Mcg Tablet 0.25 Mg DAILY 10/22/16 Reported Hold for heart rate less than 90 Proair Hfa Inhaler (Albuterol Sulfate) 8.5 Gm Hfa.aer.ad 2 Puff PRN Q4HRS PRN 10/22/16 Reported Escitalopram Oxalate 10 Mg Tablet 10 Mg DAILY 10/22/16 Reported Temazepam 15 Mg Capsule 1 Cap HS 10/22/16 Reported Spiriva (Tiotropium [place]) 18 Mcg Cap.w.dev 1 Cap IH DAILY 02/02/16 Reported Proair Hfa Inhaler (Albuterol Sulfate) 8.5 Gm Hfa.aer.ad 2 Puff IH PRN Q4-6HRS 02/02/16 Reported Symbicort 160-4.5 Mcg Inhaler (Budesonide/Formoterol Fumarate) 10.2 Gm Hfa.aer.ad 2 Puff IH BID 02/02/16 Reported Impression . 1. Dgjme-fw-kvbjvlg respiratory failure. s/p fall 2. Chronic obstructive pulmonary disease exacerbation. 3. Severe protein malnutrition. 4. 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 s/p fall Plan . 1. MAC treatment. tolerated well so far. holding weight 2. ct chest f/u ( was going to have as OP this month) 3. pulmonary toilet, oxygen support as needed, and 4. PT and OT modalities. 5. MAC treatment DONY ARCE MD Feb 03, 2017 13:27
--- NOTE | 2017-02-03 14:11 | CONS ---
DATE OF CONSULTATION: 02/02/2017 ATTENDING PHYSICIAN: Dr. Chucho Keith. CONSULTING PHYSICIAN: Warner Saunders MD REASON FOR CONSULTATION: The patient seen in Pulmonary consultation at the request of Dr. Keith for a history of Mycobacterium avium complex infection. HISTORY OF PRESENT ILLNESS: The patient is a 61-year-old who presented to the Emergency Room with one-day history of increasing shortness of breath and cough. He has some sputum production which is not new. No changes in color. He also was weak and apparently fell. He normally uses ProAir, Symbicort, and nebulizer machine at home. He has had previous bilateral pulmonary infiltrates and underwent bronchoscopy revealing Mycobacterium avium complex. He has been treated as an outpatient and follows with Dr. Epstein. His current chest x-ray reveals no new infiltrates. He denies fever, chills, or night sweats. PAST MEDICAL HISTORY: 1. Abnormal x-ray revealing bilateral pulmonary infiltrates. He underwent bronchoscopy. BAL grew out Mycobacterium avium complex. He has been treated as an outpatient, follows up with Dr. Epstein. 2. Severe COPD. 3. History of cocaine abuse. Apparently, he still uses cocaine, last time he used it was on January 31, 2017. 4. 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 PAST SURGICAL HISTORY: No recent major surgeries. ALLERGIES: No known drug allergies. REVIEW OF SYSTEMS: As indicated above. Otherwise, a 10-point system was reviewed and negative. PHYSICAL EXAMINATION: GENERAL: The patient was in no respiratory distress. VITAL SIGNS: Currently on 2 L. O2 saturation is greater than 92%. HEENT: Eyes, the sclerae were nonicteric. NECK: Jugular venous distention was not elevated. No lymphadenopathy. CHEST: Full expansion. LUNGS: Adequate airway flow. No wheezes. CARDIOVASCULAR: Regular rate and rhythm with S1 and S2. No S3. ABDOMEN: Soft, nontender, and nondistended. EXTREMITIES: No clubbing, cyanosis, or edema. NEUROLOGIC: The patient was awake, alert, and following commands. A detailed neurologic exam was not performed. LABORATORY DATA: Reviewed. Chest x-ray with no changes. IMPRESSION: 1. Abnormal x-ray compatible with a history of Mycobacterium avium complex infection. 2. Acute exacerbation, secondary to above and cocaine use. 3. Protein malnutrition. 4. Continue current medical regimen. 5. If patient continues to improve, we will discharge to Rehabilitation within next 24 to 48 hours. 6. Nebulizer treatments. I do appreciate the privilege in sharing in this patient's care. WARNER SAUNDERS MD DR: OPOJA/veronica JOB#: [id number] / [id number]
[2017-02-03 15:00] VITALS: BP 108/67
--- NOTE | 2017-02-03 16:39 | RAD ---
EXAM: CT of the chest without intravenous contrast. HISTORY: Mycobacterium avium intracellulare. Follow-up cavitary lesion. TECHNIQUE: Computed tomography of the chest was performed without intravenous contrast. COMPARISON: 11/18/2016. FINDINGS: Images of the upper abdomen reveal no acute abnormality. Bone windows reveal no suspicious lesions. There are no pathologically enlarged mediastinal or axillary lymph nodes. Calcified mediastinal lymph nodes are likely secondary to old granulomatous disease. There is no pleural or pericardial effusion. The heart is not enlarged. There are atherosclerotic calcifications of the coronary arteries. There are also calcifications of the aortic valve. There is a stable region of architectural distortion, volume loss and cavitary change in the left apex. It measures approximately 6.5 x 4.7 cm. The region has a thick wall but no clear mass is appreciable. Scarring extends inferiorly in the left upper lobe to a smaller cavitary lesion that measures 2.3 x 2.1 cm. This is smaller with decreased surrounding consolidation. More inferiorly, there are nodular infiltrates bilaterally in the left greater than right bases. These have improved on the left greater than right. No clearly increasing nodules are seen. The largest nodules measure up to 1 cm bilaterally. There is moderate to severe centrilobular emphysema. IMPRESSION: 1. Stable 6.5 cm cavitary lesion in the left apex with surrounding architectural distortion. This is consistent with mycobacterial infection. Ongoing follow-up/management is recommended. 2. A smaller cavitary lesion more inferiorly in the left upper lobe has decreased over the interval. Nodular infiltrates and consolidation in the lower lobes have improved but not resolved. 3. Moderate to severe centrilobular emphysema. 4. Aortic valve calcifications. Correlate for aortic stenosis. *One or more of the following individualized dose reduction techniques were utilized for this examination: 1. Automated exposure control. 2. Adjustment of the mA and/or kV according to patient size. 3. Use of iterative reconstruction technique.
[2017-02-03 19:15] VITALS: BP 97/66
[2017-02-03 23:12] VITALS: BP 102/56
[2017-02-04 02:56] VITALS: BP 105/73
[2017-02-04 04:24] LABS: CALCIUM 9.4 mg/dL (8.5-10.1); CREATININE 0.6 mg/dL (0.7-1.3); GFR 136.5; POTASSIUM 4.2 mmol/L (3.5-5.1)
[2017-02-04 07:00] VITALS: BP 108/71
[2017-02-04] MEDS: BUDESONIDE 0.5 MG/2 ML NEBU NEB SCH ×2 (07:02→19:13)
[2017-02-04] MEDS: IPRATRPIUM/ALBUTEROL 0.5/2.5MG 3 ML NEBU. IH SCH ×4 (07:02→19:13)
[2017-02-04] MEDS: PREDNISONE 20 MG TABLET PO SCH (08:41)
[2017-02-04] MEDS: ESCITALOPRAM 10 MG TABLET. PO SCH (08:41)
[2017-02-04] MEDS: riFAMpin 300 MG CAPSULE. PO SCH ×2 (08:41→21:24)
[2017-02-04] MEDS: DIGOXIN 250 MCG TABLET PO SCH (08:41)
[2017-02-04] MEDS: ETHAMBUTOL HCL 400 MG TABLET PO SCH (08:42)
[2017-02-04] MEDS ORDERED: PRED-220 PO (09:00)
--- NOTE | 2017-02-04 09:44 | DS ---
DATE OF DISCHARGE: 02/04/2017 ADMITTING DIAGNOSIS: Acute on chronic respiratory failure. SECONDARY DIAGNOSES: 1. Debilitation. 2. Moderate protein malnutrition 3. Chronic obstructive pulmonary disease exacerbation. 4. Major depression. 5. Mycobacterium avium complex pulmonary infection, stable. HISTORY OF PRESENT ILLNESS AND HOSPITAL COURSE: This patient is a 61-year-old male who resides at home began having increasing cough, shortness of breath and having increasing falls, came to the Emergency Room with inability to care for himself and low oxygen saturations with activity. He was treated with IV steroids initially and then p.o. steroids and pulmonary toilet. No evidence of pneumonia was noted. The patient was markedly debilitated. PT and OT ordered ____. The patient was improved with his respiratory failure, but still unable to care for himself and PT and OT recommended progressive and ongoing PT and OT via long term. Therefore, the patient will be discharged to long term for continued PT and OT modalities. PCM read for medicine list. He has been off most medicines per Pulmonary. He is on albuterol nebulizer treatments in the form DuoNeb q.6 hours. and albuterol rescue inhaler q.4h. p.r.n. He will have a prednisone taper starting at 30 mg tapering by 10 mg every other day until off. He is on Lanoxin for SVT 0.25 daily. He is on Lexapro 10 mg daily, Ethambutol 800 mg daily, rifampin 300 mg b.i.d. and temazepam 15 mg at bedtime. DEBORAH PICKENS MD DR: FAISAL/veronica JOB#: [id number] / [id number]
[2017-02-04 11:00] VITALS: BP 107/69
--- NOTE | 2017-02-04 12:02 | PDOC ---
PULMONARY PROGRESS NOTES Subjective feels better Vitals Vital Signs Date Time Temp Pulse Resp B/P Pulse Ox O2 Delivery O2 Flow Rate FiO2 02/04/17 11:17 94 Room Air 02/04/17 11:00 97.1 82 18 107/69 97.1 02/03/17 15:00 2.0 General: Alert, No acute distress Lungs: Other (decrease bs) Cardiovascular: S1, S2 Abdomen: Soft, Non-tender Neuro Exam: Alert Extremities: No Edema, Other Skin: Warm Labs Laboratory Tests Test 02/03/17 03:00 02/04/17 03:15 White Blood Count 5.9x10^3/uL (4.0-11.0) Red Blood Count 4.06x10^6/uL (4.30-5.70) Hemoglobin 12.6g/dL (13.0-17.5) Hematocrit 38.5% (39.0-53.0) Mean Corpuscular Volume 95fL (79-100) Mean Corpuscular Hemoglobin 31pg (25-35) Mean Corpuscular Hemoglobin Concent 33g/dL (31-37) Red Cell Distribution Width 15.2% (11.5-14.5) Platelet Count 263x10^3/uL (140-400) Neutrophils (%) (Auto) 68% (31-73) Lymphocytes (%) (Auto) 20% (24-48) Monocytes (%) (Auto) 10% (0-9) Eosinophils (%) (Auto) 2% (0-3) Basophils (%) (Auto) 0% (0-3) Neutrophils # (Auto) 4.0x10^3uL (1.8-7.7) Lymphocytes # (Auto) 1.2x10^3/uL (1.0-4.8) Monocytes # (Auto) 0.6x10^3/uL (0.0-1.1) Eosinophils # (Auto) 0.1x10^3/uL (0.0-0.7) Basophils # (Auto) 0.0x10^3/uL (0.0-0.2) Sodium Level 143mmol/L (136-145) 142mmol/L (136-145) Potassium Level 3.2mmol/L (3.5-5.1) 4.2mmol/L (3.5-5.1) Chloride Level 105mmol/L (98-107) 106mmol/L (98-107) Carbon Dioxide Level 32mmol/L (21-32) 31mmol/L (21-32) Anion Gap 6 (6-14) 5 (6-14) Blood Urea Nitrogen 25mg/dL (8-26) 25mg/dL (8-26) Creatinine 0.6mg/dL (0.7-1.3) 0.6mg/dL (0.7-1.3) Estimated GFR (Cockcroft-Gault) 136.5 136.5 BUN/Creatinine Ratio 42 (6-20) Glucose Level 126mg/dL (70-99) 95mg/dL (70-99) Calcium Level 9.2mg/dL (8.5-10.1) 9.4mg/dL (8.5-10.1) Total Bilirubin 0.2mg/dL (0.2-1.0) Aspartate Amino Transf (AST/SGOT) 47U/L (15-37) Alanine Aminotransferase (ALT/SGPT) 56U/L (16-63) Alkaline Phosphatase 58U/L (46-116) Total Protein 7.3g/dL (6.4-8.2) Albumin 2.7g/dL (3.4-5.0) Albumin/Globulin Ratio 0.6 (1.0-1.7) Laboratory Tests Test 02/04/17 03:15 Sodium Level 142mmol/L (136-145) Potassium Level 4.2mmol/L (3.5-5.1) Chloride Level 106mmol/L (98-107) Carbon Dioxide Level 31mmol/L (21-32) Anion Gap 5 (6-14) Blood Urea Nitrogen 25mg/dL (8-26) Creatinine 0.6mg/dL (0.7-1.3) Estimated GFR (Cockcroft-Gault) 136.5 Glucose Level 95mg/dL (70-99) Calcium Level 9.4mg/dL (8.5-10.1) Medications Active Scripts Medications Dose Route/Sig Days Date Category Dose Instructions Levaquin (Levofloxacin) 500 Mg Tablet 1 Tab PO DAILY 01/18/17 Rx Prednisone 20 Mg Tablet 50 Mg PO DAILY 01/18/17 Rx Duoneb 0.5-3(2.5) Mg/3 Ml (Albuterol/Ipratropium) 3 Ml Ampul.neb 2 Puff PRN Q4HRS PRN 10/22/16 Reported Megestrol Acetate 400 Mg/10 Ml Oral.susp 800 Mg DAILY 10/22/16 Reported Ethambutol Hcl 400 Mg Tablet 800 Mg DAILY 10/22/16 Reported Rifampin 300 Mg Capsule 300 Mg BID 10/22/16 Reported Digoxin 250 Mcg Tablet 0.25 Mg DAILY 10/22/16 Reported Hold for heart rate less than 90 Proair Hfa Inhaler (Albuterol Sulfate) 8.5 Gm Hfa.aer.ad 2 Puff PRN Q4HRS PRN 10/22/16 Reported Escitalopram Oxalate 10 Mg Tablet 10 Mg DAILY 10/22/16 Reported Temazepam 15 Mg Capsule 1 Cap HS 10/22/16 Reported Spiriva (Tiotropium Tranquillity) 18 Mcg Cap.w.dev 1 Cap IH DAILY 02/02/16 Reported Proair Hfa Inhaler (Albuterol Sulfate) 8.5 Gm Hfa.aer.ad 2 Puff IH PRN Q4-6HRS 02/02/16 Reported Symbicort 160-4.5 Mcg Inhaler (Budesonide/Formoterol Fumarate) 10.2 Gm Hfa.aer.ad 2 Puff IH BID 02/02/[address] CHEST 1. Stable 6.5 cm cavitary lesion in the left apex with surrounding architectural distortion. This is consistent with mycobacterial infection. Ongoing follow-up/management is recommended. 2. A smaller cavitary lesion more inferiorly in the left upper lobe has decreased over the interval. Nodular infiltrates and consolidation in the lower lobes have improved but not resolved. 3. Moderate to severe centrilobular emphysema. 4. Aortic valve calcifications. Correlate for aortic stenosis. Impression . 1. Nsujj-[id number]-[id number] respiratory failure. s/p fall 2. Chronic obstructive pulmonary disease exacerbation. 3. Severe protein malnutrition. 4. h/o MAC with cavitary lesion on ct, stable CXR/ CT CHEST 5. s/p fall Plan . 1. MAC treatment. tolerated well so far. holding weight 2. ct chest f/u reviewed. Stable cavitary/fibrotic process with mild improvement 3. pulmonary toilet, oxygen support as needed, and 4. PT and OT modalities. 5. MAC treatment 6. ok with d/c to [facility] Branham MD Feb 04, 2017 12:02
[2017-02-04 15:00] VITALS: BP 98/69
[2017-02-04 19:15] VITALS: BP 109/71
[2017-02-04 23:37] VITALS: BP 112/69
[2017-02-05 03:15] VITALS: BP 111/69
[2017-02-05 07:00] VITALS: BP 113/73
[2017-02-05] MEDS: BUDESONIDE 0.5 MG/2 ML NEBU NEB SCH (07:19)
[2017-02-05] MEDS: IPRATRPIUM/ALBUTEROL 0.5/2.5MG 3 ML NEBU. IH SCH (07:19)
[2017-02-05 08:05] VITALS: BP 113/73
[2017-02-05] MEDS: DIGOXIN 250 MCG TABLET PO SCH (08:05)
[2017-02-05] MEDS: riFAMpin 300 MG CAPSULE. PO SCH (08:06)
[2017-02-05] MEDS: ETHAMBUTOL HCL 400 MG TABLET PO SCH (08:06)
[2017-02-05] MEDS: PREDNISONE 20 MG TABLET PO SCH (08:06)
[2017-02-05] MEDS: ESCITALOPRAM 10 MG TABLET. PO SCH (08:06)
== END 2017-02-05 10:10 | DRG 189 ==
LOC: ER 14:30 → 4 NORTH 16:00
PROVIDERS: ADMIT Family Medicine; ATTEND Family Medicine
DX: J96.20 Acute and chronic respiratory failure, unspecified whether with hypoxia or hypercapnia (principal); E43 Unspecified severe protein-calorie malnutrition; A31.0 Pulmonary mycobacterial infection; J44.0 Chronic obstructive pulmonary disease with (acute) lower respiratory infection; J44.1 Chronic obstructive pulmonary disease with (acute) exacerbation; I47.1 Supraventricular tachycardia; I42.9 Cardiomyopathy, unspecified; F14.10 Cocaine abuse, uncomplicated; F32.9 Major depressive disorder, single episode, unspecified; Z79.899 Other long term (current) drug therapy; Z86.11 Personal history of tuberculosis; Z87.891 Personal history of nicotine dependence; Z87.01 Personal history of pneumonia (recurrent); Z91.81 History of falling
CPT/HCPCS: 36415; 71010; 71250; 80048; 80053; 85027; 93005; 94640; 94644; 94760; J3010; J7512; J7620; 97116; 99285-25

== ENCOUNTER 2017-02-24 19:09 | Inpatient (IN) | payer OTHER, MEDICAID ==
[~2017-02-24] VITALS: Ht 172.7 cm; Wt 47.6 kg
[~2017-02-24 19:09] MED LIST changes: +PRED-220 PO
[2017-02-24] MEDS ORDERED: IPRATRPIUM/ALBUTEROL 0.5/2.5MG 3 ML NEBU. NEB ONE (19:30)
[2017-02-24] MEDS ORDERED: methylPREDNISolone SOD SUCC PF 125 MG/2 ML VIAL. IV ONE (19:30)
[2017-02-24 19:31] LABS: BASO # 0.1 x10^3/uL (0.0-0.2); BASO % 1 % (0-3); EOS % 3 % (0-3); HEMATOCRIT 42.4 % (39.0-53.0); HEMOGLOBIN 13.9 g/dL (13.0-17.5); LYMPH # 0.9 x10^3/uL (1.0-4.8); LYMPH % 13 % (24-48); MEAN CORPUSCULAR HEMOGLOBIN 31 pg (25-35); MEAN CORPUSCULAR HGB CONC 33 g/dL (31-37); MEAN CORPUSCULAR VOLUME 95 fL (79-100); MONO % 11 % (0-9); NEUT % 72 % (31-73); PLATELET COUNT 275 x10^3/uL (140-400); RED BLOOD COUNT 4.48 x10^6/uL (4.30-5.70); RED CELL DISTRIBUTION WIDTH 14.7 % (11.5-14.5); WHITE BLOOD COUNT 7.1 x10^3/uL (4.0-11.0)
[2017-02-24 19:44] LABS: CREATININE 0.6 mg/dL (0.7-1.3); GFR 136.5; POTASSIUM 4.5 mmol/L (3.5-5.1)
--- NOTE | 2017-02-24 20:07 | PHYS DOC ---
Past Medical History Past Medical History: COPD, Pneumonia Additional Past Medical Histor: CARDIOMYOPATHY, MAC Past Surgical History: Other Additional Past Surgical Histo: bronchoscopy Alcohol Use: Occasionally Drug Use: Cocaine Adult General Chief Complaint Chief Complaint: SHORTNESS OF BREATH HPI HPI This is a 61-year-old male with known history of COPD and debilitation history of Mycobacterium Avium Complex to the left upper lobe who is experiencing significant dyspnea as well as sensation of chest heaviness has been present for the last 3-4 hours. EMS upon arrival found the patient saturating in the mid 80s in moderate respiratory distress. Breathing treatment was given and upon arrival the patient still satting in the low 90% range on room air in mild respiratory distress. Patient did recently have a stay at a detention facility and was discharged back home. Patient is cachectic and tachypneic upon my initial evaluation but is alert and oriented and able to answer all my questions. Review of Systems Review of Systems Constitutional: Denies fever or chills [] Eyes: Denies change in visual acuity, redness, or eye pain [] HENT: Denies nasal congestion or sore throat [] Respiratory: Has cough, has shortness of breath [] Cardiovascular: No additional information not addressed in HPI [] GI: Denies abdominal pain, nausea, vomiting, bloody stools or diarrhea [] : Denies dysuria or hematuria [] Musculoskeletal: Denies back pain or joint pain [] Integument: Denies rash or skin lesions [] Neurologic: Denies headache, focal weakness or sensory changes [] Endocrine: Denies polyuria or polydipsia [] Current Medications Current Medications Current Medications Medications (Trade) Dose Ordered Sig/Ken Start Time Stop Time Status Last Admin Dose Admin Acetaminophen (Tylenol) 650 mg PRN Q4HRS PRN 02/24/17 20:15 02/25/17 20:14 Albuterol/ Ipratropium (Duoneb) 3 ml RTQID 02/25/17 08:00 Methylprednisolone Sodium Succinate (Solu-Medrol 125mg Vial) 125 mg 1X ONCE 02/24/17 19:30 02/24/17 19:31 DC 02/24/17 19:34 125 MG Ondansetron HCl 4 mg 4 mg PRN Q8HRS PRN 02/24/17 20:15 02/25/17 20:14 Sodium Chloride (Iv Sodium Chloride 0.9% 1000ml Bag) 1,000 ml @ 75 mls/hr [id number] 02/24/17 20:07 02/25/17 20:06 Allergies Allergies Allergies Coded Allergies Type Severity Reaction Last Updated Verified No Known Drug Allergies 02/02/16 No Physical Exam Physical Exam Constitutional: Well developed, well nourished, no acute distress, non-toxic appearance. [] HENT: Normocephalic, atraumatic, bilateral external ears normal, oropharynx moist, no oral exudates, nose normal. [] Eyes: PERRLA, EOMI, conjunctiva normal, no discharge. [] Neck: Normal range of motion, no tenderness, supple, no stridor. [] Cardiovascular:Heart rate regular rhythm, no murmur [] Lungs & Thorax: Bilateral breath sounds clear to auscultation [] Abdomen: Bowel sounds normal, soft, no tenderness, no masses, no pulsatile masses. [] Skin: Warm, dry, no erythema, no rash. [] Back: No tenderness, no CVA tenderness. [] Extremities: No tenderness, no cyanosis, no clubbing, ROM intact, no edema. [] Neurologic: Alert and oriented X 3, normal motor function, normal sensory function, no focal deficits noted. [] Psychologic: Affect normal, judgement normal, mood normal. [] Current Patient Data Vital Signs Vital Signs Date Time Temp Pulse Resp B/P Pulse Ox O2 Delivery O2 Flow Rate FiO2 02/24/17 20:00 88 97/70 89 Nasal Cannula 2 02/24/17 19:10 98.7 33 98.7 Lab Values Laboratory Tests Test 02/24/17 19:15 White Blood Count 7.1x10^3/uL (4.0-11.0) Red Blood Count 4.48x10^6/uL (4.30-5.70) Hemoglobin 13.9g/dL (13.0-17.5) Hematocrit 42.4% (39.0-53.0) Mean Corpuscular Volume 95fL (79-100) Mean Corpuscular Hemoglobin 31pg (25-35) Mean Corpuscular Hemoglobin Concent 33g/dL (31-37) Red Cell Distribution Width 14.7% (11.5-14.5) H Platelet Count 275x10^3/uL (140-400) Neutrophils (%) (Auto) 72% (31-73) Lymphocytes (%) (Auto) 13% (24-48) L Monocytes (%) (Auto) 11% (0-9) H Eosinophils (%) (Auto) 3% (0-3) Basophils (%) (Auto) 1% (0-3) Neutrophils # (Auto) 5.1x10^3uL (1.8-7.7) Lymphocytes # (Auto) 0.9x10^3/uL (1.0-4.8) L Monocytes # (Auto) 0.8x10^3/uL (0.0-1.1) Eosinophils # (Auto) 0.2x10^3/uL (0.0-0.7) Basophils # (Auto) 0.1x10^3/uL (0.0-0.2) Sodium Level 140mmol/L (136-145) Potassium Level 4.5mmol/L (3.5-5.1) Chloride Level 101mmol/L (98-107) Carbon Dioxide Level 32mmol/L (21-32) Anion Gap 7 (6-14) Blood Urea Nitrogen 18mg/dL (8-26) Creatinine 0.6mg/dL (0.7-1.3) L Estimated GFR (Cockcroft-Gault) 136.5 Glucose Level 117mg/dL (70-99) H Calcium Level 10.0mg/dL (8.5-10.1) Troponin I Quantitative < 0.017ng/mL (0.000-0.055) Laboratory Tests 02/24/17 19:15 Laboratory Tests 02/24/17 19:15 EKG EKG EKG as interpreted by me shows sinus tachycardia with a rate of 101 bpm with no obvious acute findings. Intervals are normal. This EKG does not meet STEMI criteria. Radiology/Procedures Radiology/Procedures Portable one view of the chest as interpreted by me shows continued demonstration of the left upper lobe cavitary lesion that was seen previously but no obvious acute findings as compared to previous chest film obtained on 02/01 Course & Med Decision Making Course & Med Decision Making Pertinent Labs and Imaging studies reviewed. (See chart for details) This 61-year-old cachectic and debilitated male who presents in acute respiratory distress will be admitted to the hospital for COPD exacerbation and chest pain. Pulmonary consult will be placed. I discussed the need to admit the patient with Dr. Keith who agreed with repeat do a nebs ordered. A dose of Solu- Medrol and a DuoNeb was given to the patient. Patient is still requiring 2 L of nasal cannula oxygen at this time. His laboratory workup was negative including a set of cardiac enzymes. His EKG and chest x-ray are essentially unremarkable. His chest film continues to show a left upper lobe cavitary lesion that appears slightly worsened from previous but no acute findings. Dragon Disclaimer Dragon Disclaimer This electronic medical record was generated, in whole or in part, using a voice recognition dictation system. Departure Departure Impression: Primary Impression: COPD exacerbation Additional Impression: Respiratory distress Disposition: ADMITTED INPATIENT Admitting Physician: Chucho Keith Condition: STABLE Referrals: CHUCHO KEITH MD (PCP) Problem Qualifiers SLIM HAWLEY DO Feb 24, 2017 20:06
[2017-02-24] MEDS ORDERED: ONDANSETRON PF 4 MG/2 ML VIAL. IV PRN (20:15)
[2017-02-24] MEDS ORDERED: ACETAMINOPHEN 325 MG TABLET. PO PRN (20:15)
[2017-02-24] MEDS ORDERED: IPRATRPIUM/ALBUTEROL 0.5/2.5MG 3 ML NEBU. NEB SCH (20:30)
--- NOTE | 2017-02-24 20:49 | ACF ---
Admission Forms Criteria COPD Clinical Indications for Admission to Inpatient Care (Place 'X' for any and all applicable criteria): Admission is indicated for ANY ONE of the following (1)(2)(3): [X]I. Acute exacerbation by high-risk comorbidity (e.g., pneumonia, dysrhythmia, heart failure, pleural effusion, pneumothorax) or severe underlying COPD (e.g., steroid dependent) [ ]II. Inpatient admission required rather than observation care (see Chronic Obstructive Pulmonary Disease: Observation Care) because of ANY ONE of the following: [ ]a) New or pre-existing signs or symptoms of COPD (eg, dyspnea or Tachypnea at rest or with minimal activity) that persist despite outpatient and observation care treatment [ ]b) New-onset hypoxemia (room air SaO2 less than 90%, PO2 less than 60 mm Hg (8.0 kPa)) that persists despite outpatient and observation care treatment [ ]c) Worsening of pre-existing hypoxemia (eg, new or increased requirement for supplemental oxygen to maintain oxygenation at baseline level) that persists despite outpatient and observation care treatment, with oxygen treatment needs performable only in acute inpatient setting [ ]d) Hypercarbia (PCO2 greater than 40 mm Hg (5.3 kPa))-induced respiratory acidosis (pH less than 7.35) that persists despite outpatient and observation care treatment [ ]e) Supplemental oxygen or respiratory treatments for over 24 hours that are performable only in acute inpatient setting [ ]f) Chest tube placement with active evacuation (e.g., suction, drainage) (5) [ ]g) Other condition, treatment or monitoring requiring inpatient admission [ ]III. Planned invasive surgical or diagnostic procedures requiring acute- care hospitalization [ ]IV. Acute respiratory failure (e.g., uncompensated hypercarbia, severe hypoxemia) [ ]V. Severe comorbid condition (e.g., severe steroid myopathy, acute vertebral fracture) that has acutely worsened pulmonary function [ ]. Confusion state, lethargy, obtundation, stupor or coma Extended stay beyond goal length of stay may be needed for (31)(32): [ ]a ) Respiratory Failure. [ ]b) Severe or persisting hypoxemia or hypercarbia [ ]c) Severe or persistent dyspnea [ ]d) Comorbidities (e.g. chronic heart failure, atrial fibrillation with rapid response, pneumonia) [ ]e) Malnutrition The original [facility] content created by [facility] has been revised. The portions of the content which have been revised are identified through the use of italic text or in bold, and [facility] has neither reviewed nor approved the modified material. All other unmodified content is copyright [facility]. Please see references footnoted in the original [facility] edition 2016 Admission Criteria Met?: Yes BASSEM ROBINS. Feb 24, 2017 20:49
[2017-02-24 22:15] VITALS: BP 136/74
[2017-02-24] MEDS: ALBUTEROL SULFATE 2.5 MG/3 ML NEBU. NEB PRN (23:01)
[2017-02-25] MEDS: IV NORMAL SALINE 1000ML BAG 1,000 ML IV SCH ×2 (01:34→14:07)
[2017-02-25 01:38] LABS: BASO % 0 % (0-3); EOS % 0 % (0-3); HEMATOCRIT 37.8 % (39.0-53.0); HEMOGLOBIN 12.6 g/dL (13.0-17.5); LYMPH # 0.5 x10^3/uL (1.0-4.8); LYMPH % 10 % (24-48); MEAN CORPUSCULAR HEMOGLOBIN 31 pg (25-35); MEAN CORPUSCULAR HGB CONC 33 g/dL (31-37); MEAN CORPUSCULAR VOLUME 93 fL (79-100); MONO % 5 % (0-9); NEUT % 85 % (31-73); PLATELET COUNT 244 x10^3/uL (140-400); RED BLOOD COUNT 4.07 x10^6/uL (4.30-5.70); RED CELL DISTRIBUTION WIDTH 14.3 % (11.5-14.5); WHITE BLOOD COUNT 4.8 x10^3/uL (4.0-11.0)
[2017-02-25 01:56] LABS: CALCIUM 9.8 mg/dL (8.5-10.1); CREATININE 0.8 mg/dL (0.7-1.3); POTASSIUM 4.6 mmol/L (3.5-5.1)
[2017-02-25] MEDS ORDERED: MECL12.52 PO (02:52)
[2017-02-25] MEDS ORDERED: BENZ200C39 PO (02:52)
[2017-02-25] MEDS ORDERED: MAGN2400 PO (02:54)
[2017-02-25] MEDS ORDERED: BISA10SU2 RC (02:56)
[2017-02-25] MEDS ORDERED: NA P133E2 RC (02:56)
[2017-02-25] MEDS ORDERED: ACET325T9 PO ×2 (02:57→02:58)
[2017-02-25 03:00] VITALS: BP 85/53
[2017-02-25] MEDS ORDERED: MAG355OR12 PO (03:00)
[2017-02-25] MEDS ORDERED: IPRA3AMP NEB (03:02)
[2017-02-25] MEDS ORDERED: PROAIR HFA8.5 GM INH (03:03)
[2017-02-25] MEDS ORDERED: ALBU2.5V14 NEB (03:04)
[2017-02-25] MEDS: ALBUTEROL SULFATE 2.5 MG/3 ML NEBU. NEB PRN ×2 (03:59→22:59)
[2017-02-25 07:00] VITALS: BP 97/67
[2017-02-25] MEDS: IPRATRPIUM/ALBUTEROL 0.5/2.5MG 3 ML NEBU. NEB SCH ×4 (07:13→19:10)
--- NOTE | 2017-02-25 08:30 | RAD ---
Portable chest, 02/24/2017: History: Shortness of breath and chest pain Comparison is made to a study from 02/01/2017. The heart size is normal. There are extensive pleural/parenchymal opacities in the left chest with dominant involvement of the left apex. There is volume loss on the left with superior retraction left hilum. These findings are unchanged and are compatible with scarring and/or chronic infection. There is mild underlying pulmonary nodularity, better demonstrated on the 02/03/2017 CT exam. No acute infiltrate is seen. There is no evidence of pleural fluid or pneumothorax. IMPRESSION: 1. Unchanged left lung pleural-parenchymal opacities and nodularity compatible with fibrosis and residual infection. 2. No new abnormality is detected.
--- NOTE | 2017-02-25 08:59 | PDOC ---
PULMONARY PROGRESS NOTES Vitals Vital Signs Date Time Temp Pulse Resp B/P Pulse Ox O2 Delivery O2 Flow Rate FiO2 02/25/17 07:14 92 Room Air 02/25/17 07:00 97.9 80 18 97/67 97.9 02/24/17 22:30 2.0 General: Alert, No acute distress Lungs: Other Cardiovascular: S1, S2 Abdomen: Soft, Non-tender Extremities: No Edema, Other Labs Laboratory Tests Test 02/24/17 19:15 02/25/17 01:25 02/25/17 08:00 White Blood Count 7.1x10^3/uL (4.0-11.0) 4.8x10^3/uL (4.0-11.0) Red Blood Count 4.48x10^6/uL (4.30-5.70) 4.07x10^6/uL (4.30-5.70) Hemoglobin 13.9g/dL (13.0-17.5) 12.6g/dL (13.0-17.5) Hematocrit 42.4% (39.0-53.0) 37.8% (39.0-53.0) Mean Corpuscular Volume 95fL (79-100) 93fL (79-100) Mean Corpuscular Hemoglobin 31pg (25-35) 31pg (25-35) Mean Corpuscular Hemoglobin Concent 33g/dL (31-37) 33g/dL (31-37) Red Cell Distribution Width 14.7% (11.5-14.5) 14.3% (11.5-14.5) Platelet Count 275x10^3/uL (140-400) 244x10^3/uL (140-400) Neutrophils (%) (Auto) 72% (31-73) 85% (31-73) Lymphocytes (%) (Auto) 13% (24-48) 10% (24-48) Monocytes (%) (Auto) 11% (0-9) 5% (0-9) Eosinophils (%) (Auto) 3% (0-3) 0% (0-3) Basophils (%) (Auto) 1% (0-3) 0% (0-3) Neutrophils # (Auto) 5.1x10^3uL (1.8-7.7) 4.0x10^3uL (1.8-7.7) Lymphocytes # (Auto) 0.9x10^3/uL (1.0-4.8) 0.5x10^3/uL (1.0-4.8) Monocytes # (Auto) 0.8x10^3/uL (0.0-1.1) 0.2x10^3/uL (0.0-1.1) Eosinophils # (Auto) 0.2x10^3/uL (0.0-0.7) 0.0x10^3/uL (0.0-0.7) Basophils # (Auto) 0.1x10^3/uL (0.0-0.2) 0.0x10^3/uL (0.0-0.2) Sodium Level 140mmol/L (136-145) 139mmol/L (136-145) Potassium Level 4.5mmol/L (3.5-5.1) 4.6mmol/L (3.5-5.1) Chloride Level 101mmol/L (98-107) 101mmol/L (98-107) Carbon Dioxide Level 32mmol/L (21-32) 32mmol/L (21-32) Anion Gap 7 (6-14) 6 (6-14) Blood Urea Nitrogen 18mg/dL (8-26) 18mg/dL (8-26) Creatinine 0.6mg/dL (0.7-1.3) 0.8mg/dL (0.7-1.3) Estimated GFR (Cockcroft-Gault) 136.5 98.0 Glucose Level 117mg/dL (70-99) 170mg/dL (70-99) Calcium Level 10.0mg/dL (8.5-10.1) 9.8mg/dL (8.5-10.1) Troponin I Quantitative < 0.017ng/mL (0.000-0.055) < 0.017ng/mL (0.000-0.055) < 0.017ng/mL (0.000-0.055) Laboratory Tests Test 02/24/17 19:15 02/25/17 01:25 02/25/17 08:00 White Blood Count 7.1x10^3/uL (4.0-11.0) 4.8x10^3/uL (4.0-11.0) Red Blood Count 4.48x10^6/uL (4.30-5.70) 4.07x10^6/uL (4.30-5.70) Hemoglobin 13.9g/dL (13.0-17.5) 12.6g/dL (13.0-17.5) Hematocrit 42.4% (39.0-53.0) 37.8% (39.0-53.0) Mean Corpuscular Volume 95fL (79-100) 93fL (79-100) Mean Corpuscular Hemoglobin 31pg (25-35) 31pg (25-35) Mean Corpuscular Hemoglobin Concent 33g/dL (31-37) 33g/dL (31-37) Red Cell Distribution Width 14.7% (11.5-14.5) 14.3% (11.5-14.5) Platelet Count 275x10^3/uL (140-400) 244x10^3/uL (140-400) Neutrophils (%) (Auto) 72% (31-73) 85% (31-73) Lymphocytes (%) (Auto) 13% (24-48) 10% (24-48) Monocytes (%) (Auto) 11% (0-9) 5% (0-9) Eosinophils (%) (Auto) 3% (0-3) 0% (0-3) Basophils (%) (Auto) 1% (0-3) 0% (0-3) Neutrophils # (Auto) 5.1x10^3uL (1.8-7.7) 4.0x10^3uL (1.8-7.7) Lymphocytes # (Auto) 0.9x10^3/uL (1.0-4.8) 0.5x10^3/uL (1.0-4.8) Monocytes # (Auto) 0.8x10^3/uL (0.0-1.1) 0.2x10^3/uL (0.0-1.1) Eosinophils # (Auto) 0.2x10^3/uL (0.0-0.7) 0.0x10^3/uL (0.0-0.7) Basophils # (Auto) 0.1x10^3/uL (0.0-0.2) 0.0x10^3/uL (0.0-0.2) Sodium Level 140mmol/L (136-145) 139mmol/L (136-145) Potassium Level 4.5mmol/L (3.5-5.1) 4.6mmol/L (3.5-5.1) Chloride Level 101mmol/L (98-107) 101mmol/L (98-107) Carbon Dioxide Level 32mmol/L (21-32) 32mmol/L (21-32) Anion Gap 7 (6-14) 6 (6-14) Blood Urea Nitrogen 18mg/dL (8-26) 18mg/dL (8-26) Creatinine 0.6mg/dL (0.7-1.3) 0.8mg/dL (0.7-1.3) Estimated GFR (Cockcroft-Gault) 136.5 98.0 Glucose Level 117mg/dL (70-99) 170mg/dL (70-99) Calcium Level 10.0mg/dL (8.5-10.1) 9.8mg/dL (8.5-10.1) Troponin I Quantitative < 0.017ng/mL (0.000-0.055) < 0.017ng/mL (0.000-0.055) < 0.017ng/mL (0.000-0.055) Medications Active Scripts Medications Dose Route/Sig Days Date Category Dose Instructions Albuterol Sulfate Conc Neb Soln (Albuterol Sulfate) 2.5 Mg/0.5 Ml Vial.neb 1 Vial NEB Q4HRS 02/25/17 Reported Proair Hfa Inhaler (Albuterol Sulfate) 8.5 Gm Hfa.aer.ad 1 Puff INH PRN Q4HRS PRN 02/25/17 Reported Duoneb 0.5-3(2.5) Mg/3 Ml (Albuterol/Ipratropium) 3 Ml Ampul.neb 3 Ml NEB QID 02/25/17 Reported Maalox Maximum Strength Susp (Mag Hydrox/Al Hydrox/Simeth) 355 Ml Oral.susp 30 Ml PO 02/25/17 Reported Tylenol (Acetaminophen) 325 Mg Tablet 2 Tab PO PRN Q4HRS 02/25/17 Reported Tylenol (Acetaminophen) 325 Mg Tablet 2 Tab PO PRN Q4HRS 02/25/17 Reported Fleet Enema (Na Phos,M-B/Na Phos,Di-Ba) 133 Ml Enema 1 Each RC DAILY 02/25/17 Reported Bisacodyl 10 Mg Supp.rect 10 Mg RC PRN DAILY PRN 02/25/17 Reported Milk Of Magnesia (Magnesium Hydroxide) 2,400 Mg/10 Ml Oral.susp 2,400 Mg PO 02/25/17 Reported Meclizine Hcl 12.5 Mg Tablet 12.5 Mg PO PRN Q6HRS PRN 02/25/17 Reported Benzonatate 200 Mg Capsule 1 Cap PO TID 02/25/17 Reported Duoneb 0.5-3(2.5) Mg/3 Ml (Albuterol/Ipratropium) 3 Ml Ampul.neb 2 Puff PRN Q4HRS PRN 10/22/16 Reported Ethambutol Hcl 400 Mg Tablet 800 Mg DAILY 10/22/16 Reported Rifampin 300 Mg Capsule 300 Mg BID 10/22/16 Reported Digoxin 250 Mcg Tablet 0.25 Mg DAILY 10/22/16 Reported Hold for heart rate less than 90 Escitalopram Oxalate 10 Mg Tablet 10 Mg DAILY 10/22/16 Reported Temazepam 15 Mg Capsule 1 Cap HS 10/22/16 Reported Impression . [id number] AECOPD MAC SEE ORDERS THANKS WARNER SAUNDERS MD Feb 25, 2017 08:59
--- NOTE | 2017-02-25 09:44 | EKG ---
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
[2017-02-25 10:42] VITALS: BP 91/62
[2017-02-25] MEDS ORDERED: NON FORMULARY ITEM (Albuterol Sulfate (Proair Hfa Inhaler) 1 PUFF) INH PRN (13:00)
[2017-02-25] MEDS ORDERED: BISACODYL 10 MG SUPP.RECT. RC PRN (13:00)
[2017-02-25] MEDS ORDERED: IPRATRPIUM/ALBUTEROL 0.5/2.5MG 3 ML NEBU. NEB SCH (13:00)
[2017-02-25] MEDS: DO NOT USE 40 MG/0.4 ML DISP.SYRIN SQ SCH (14:07)
[2017-02-25] MEDS: ETHAMBUTOL HCL 400 MG TABLET PO SCH (14:07)
--- NOTE | 2017-02-25 14:17 | HP ---
ADMIT DATE: CHIEF COMPLAINT: Shortness of breath. HISTORY OF PRESENT ILLNESS AND HOSPITAL COURSE: This patient is a 61-year-old male, who has severe COPD and malnutrition recently released from rehabilitation approximately 24 hours prior to the admission and became increasingly short of breath while at home, neither called EMS nor was found to be hypoxic to less than 80% saturation. He is given some supplemental oxygen and breathing treatments and an improved, but continued failed to maintain sats about 90. Due to severity of symptoms, he was admitted for further evaluation and care as well as pulmonary consultation, additionally received a note from _[facility]. The patient may still be using methamphetamines and illegal drugs, although this is not being confirmed to this point. PAST MEDICAL HISTORY: Significant for 1. Severe protein malnutrition. 2. Chronic obstructive pulmonary disease. 3. Severe debilitation. 4. History of sacral and heel decubitus. 5. History polysubstance abuse. 6. History of major depression. 7. Anxiety disorder. 8. Supraventricular tachycardia. 9. Mycobacterium avium pulmonary infection. FAMILY HISTORY: Mother with cancer. He has a brother with lung cancer and sister with throat cancer. PAST SURGICAL HISTORY: Significant for hemorrhoidectomy and back surgeries x 2. SOCIAL HISTORY: 1. The patient lives alone, but his feeling and family says he has ____ in his home, possibly exacerbation his COPD. 2. Long-term smoker, apparently quit 3 years ago, use a pack per day until that point. The patient uses alcohol, but not excessively according to the patient. The patient is on disability. REVIEW OF SYSTEMS: The patient was doing well at rehabilitation and was discharged home until he became increasingly short of breath within 24 hours of discharge from longterm unit. The patient denies any chest pain, nausea, vomiting or diarrhea. He does have chest pressure associated with shortness of breath. PHYSICAL EXAMINATION: GENERAL: This is a thin, cachectic-appearing, male, in no apparent distress on my exam. He is alert and oriented today. HEENT: Reveals poor dentition. NECK: Supple, without JVD or bruit. CARDIAC: Regular rate and rhythm. LUNGS: Clear. ABDOMEN: Soft and nontender, without masses. EXTREMITIES: 2+ pulses without significant edema. NEUROLOGIC: Showed no unilateral findings. ASSESSMENT: 1. [id number] respiratory failure. 2. Exacerbation of chronic obstructive pulmonary disease. 3. Protein malnutrition, severe. 4. Severe debilitation. PLAN: To proceed with pulmonary toilet and have social work evaluation for assisted living snf placement, failed attempts at home care. Routine drug screen, due to reports of illegal drug use. DEBORAH PICKENS MD DR: FAISAL/veronica JOB#: [id number] / [id number]
[2017-02-25 14:42] VITALS: BP 91/65
[2017-02-25] MEDS ORDERED: NON FORMULARY ITEM (Albuterol Sulfate (Albuterol Sulfate Conc Neb Soln) 1 VIAL) NEB SCH (16:00)
[2017-02-25] MEDS: PREDNISONE 10 MG TABLET PO SCH (16:11)
[2017-02-25 16:52] LABS: BARBITURATES NEG (NEG); BENZODIAZEPINES NEG (NEG); CANNABINOIDS NEG (NEG); COCAINE POS (NEG); METHADONE NEG (NEG); OPIATES NEG (NEG); PHENCYCLIDINE NEG (NEG)
[2017-02-25 16:55] LABS: ETHANOL, URINE NEG (NEG)
[2017-02-25 19:00] VITALS: BP 102/65
[2017-02-25] MEDS ORDERED: TEMAZEPAM 15 MG CAPSULE PO SCH (21:00)
[2017-02-25] MEDS: riFAMpin 300 MG CAPSULE. PO SCH (21:59)
[2017-02-25] MEDS: DOXYCYCLINE HYCLATE 100 MG TABLET PO SCH (21:59)
[2017-02-25 23:00] VITALS: BP 96/59
[2017-02-26 03:00] VITALS: BP 82/50
--- NOTE | 2017-02-26 03:46 | CONS ---
DATE OF CONSULTATION: 02/25/2017 ATTENDING PHYSICIAN: Dr. Chucho Keith. REASON FOR CONSULTATION: The patient seen in pulmonary consultation at the request of Dr. Keith for increasing shortness of breath. HISTORY OF PRESENT ILLNESS: The patient is a 61-year-old male well known to our service from previous hospitalizations. He presents with increasing shortness of breath. He says previous history of Mycobacterium avium complex and is currently being treated. He has had previous abnormal chest x-ray. As a consequence of increasing shortness of breath, cough productive of discolored sputum, I was asked to see him in consultation. Chest x-ray was reviewed. There are some chronic changes. There are no new changes. PAST MEDICAL HISTORY: 1. Fibrocavitary disease with status post previous bronchoscopy. Patient grew out Mycobacterium avium complex, currently undergoing treatment. 2. ____. 3. Protein malnutrition. 4. Significant weight loss and debility. 5. Severe COPD. 6. History of cocaine abuse. 7. History of TB, ____ appeared to have incarceration, the patient was treated for 6 months. PAST SURGICAL HISTORY: As above. ALLERGIES: No known drug allergies. REVIEW OF SYSTEMS: As indicated above, otherwise, a 10-point system was reviewed and negative. CURRENT MEDICATIONS: List was reviewed. Please see the MRAD. PHYSICAL EXAMINATION: GENERAL: The patient did not appear to be septic. He was on no oxygen supplementation, saturation greater than 92%. HEENT: Eyes, the sclerae were nonicteric. NECK: Jugular venous distention, was not elevated. LUNGS: Rales on the right. Otherwise, no wheezes. CARDIOVASCULAR: Regular rate and rhythm with S1, S2, no S3. ABDOMEN: Soft, nontender, nondistended. EXTREMITIES: No clubbing, cyanosis or edema. NEUROLOGIC: The patient was awake, alert, following commands. A detailed neuro exam was not performed. LABORATORY DATA: Reviewed. White count was normal. Hemoglobin and hematocrit were noted. Chest x-ray as indicated above. No change. IMPRESSION: 1. Progressive dyspnea secondary to acute exacerbation of chronic obstructive pulmonary disease. 2. 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 3. Severe chronic obstructive pulmonary disease. 4. Severe weight loss/protein malnutrition. PLAN: 1. Recommend continue current treatment for MAC. 2. Treat underlying chronic obstructive pulmonary disease exacerbation. 3. PT, OT. 4. Bronchodilators. I do appreciate the privilege in sharing in the patient's care. WARNER SAUNDERS MD DR: POOJA/veronica JOB#: [id number] / [id number]
[2017-02-26] MEDS: ALBUTEROL SULFATE 2.5 MG/3 ML NEBU. NEB PRN (03:47)
[2017-02-26 04:44] LABS: BASO % 1 % (0-3); EOS % 4 % (0-3); HEMOGLOBIN 11.5 g/dL (13.0-17.5); LYMPH # 1.2 x10^3/uL (1.0-4.8); LYMPH % 29 % (24-48); MEAN CORPUSCULAR HEMOGLOBIN 31 pg (25-35); MEAN CORPUSCULAR HGB CONC 33 g/dL (31-37); MEAN CORPUSCULAR VOLUME 94 fL (79-100); MONO % 13 % (0-9); NEUT % 54 % (31-73); PLATELET COUNT 230 x10^3/uL (140-400); RED BLOOD COUNT 3.72 x10^6/uL (4.30-5.70); RED CELL DISTRIBUTION WIDTH 14.8 % (11.5-14.5); WHITE BLOOD COUNT 4.2 x10^3/uL (4.0-11.0)
[2017-02-26 07:00] VITALS: BP 141/68
[2017-02-26] MEDS: IPRATRPIUM/ALBUTEROL 0.5/2.5MG 3 ML NEBU. NEB SCH ×3 (07:35→15:23)
[2017-02-26] MEDS: PREDNISONE 10 MG TABLET PO SCH (08:37)
[2017-02-26] MEDS: riFAMpin 300 MG CAPSULE. PO SCH (08:37)
[2017-02-26] MEDS: DOXYCYCLINE HYCLATE 100 MG TABLET PO SCH (08:38)
[2017-02-26] MEDS: ETHAMBUTOL HCL 400 MG TABLET PO SCH (08:38)
--- NOTE | 2017-02-26 08:47 | PDOC ---
PULMONARY PROGRESS NOTES Subjective PT NOT MORE SOA Vitals Vital Signs Date Time Temp Pulse Resp B/P Pulse Ox O2 Delivery O2 Flow Rate FiO2 02/26/17 08:38 78 141/68 02/26/17 08:00 Room Air 02/26/17 07:37 95 02/26/17 07:00 97.9 18 97.9 ROS: No Nausea, No Chest Pain, No Abdominal Pain, No Increase Cough General: Alert, No acute distress Lungs: Crackles Cardiovascular: S1, S2 Abdomen: Soft, Non-tender Neuro Exam: Alert Extremities: No Edema, Other Skin: Warm Labs Laboratory Tests Test 02/24/17 19:15 02/25/17 01:25 02/25/17 08:00 02/25/17 16:00 White Blood Count 7.1x10^3/uL (4.0-11.0) 4.8x10^3/uL (4.0-11.0) Red Blood Count 4.48x10^6/uL (4.30-5.70) 4.07x10^6/uL (4.30-5.70) Hemoglobin 13.9g/dL (13.0-17.5) 12.6g/dL (13.0-17.5) Hematocrit 42.4% (39.0-53.0) 37.8% (39.0-53.0) Mean Corpuscular Volume 95fL (79-100) 93fL (79-100) Mean Corpuscular Hemoglobin 31pg (25-35) 31pg (25-35) Mean Corpuscular Hemoglobin Concent 33g/dL (31-37) 33g/dL (31-37) Red Cell Distribution Width 14.7% (11.5-14.5) 14.3% (11.5-14.5) Platelet Count 275x10^3/uL (140-400) 244x10^3/uL (140-400) Neutrophils (%) (Auto) 72% (31-73) 85% (31-73) Lymphocytes (%) (Auto) 13% (24-48) 10% (24-48) Monocytes (%) (Auto) 11% (0-9) 5% (0-9) Eosinophils (%) (Auto) 3% (0-3) 0% (0-3) Basophils (%) (Auto) 1% (0-3) 0% (0-3) Neutrophils # (Auto) 5.1x10^3uL (1.8-7.7) 4.0x10^3uL (1.8-7.7) Lymphocytes # (Auto) 0.9x10^3/uL (1.0-4.8) 0.5x10^3/uL (1.0-4.8) Monocytes # (Auto) 0.8x10^3/uL (0.0-1.1) 0.2x10^3/uL (0.0-1.1) Eosinophils # (Auto) 0.2x10^3/uL (0.0-0.7) 0.0x10^3/uL (0.0-0.7) Basophils # (Auto) 0.1x10^3/uL (0.0-0.2) 0.0x10^3/uL (0.0-0.2) Sodium Level 140mmol/L (136-145) 139mmol/L (136-145) Potassium Level 4.5mmol/L (3.5-5.1) 4.6mmol/L (3.5-5.1) Chloride Level 101mmol/L (98-107) 101mmol/L (98-107) Carbon Dioxide Level 32mmol/L (21-32) 32mmol/L (21-32) Anion Gap 7 (6-14) 6 (6-14) Blood Urea Nitrogen 18mg/dL (8-26) 18mg/dL (8-26) Creatinine 0.6mg/dL (0.7-1.3) 0.8mg/dL (0.7-1.3) Estimated GFR (Cockcroft-Gault) 136.5 98.0 Glucose Level 117mg/dL (70-99) 170mg/dL (70-99) Calcium Level 10.0mg/dL (8.5-10.1) 9.8mg/dL (8.5-10.1) Troponin I Quantitative < 0.017ng/mL (0.000-0.055) < 0.017ng/mL (0.000-0.055) < 0.017ng/mL (0.000-0.055) Urine Opiates Screen Neg (NEG) Urine Methadone Screen Neg (NEG) Urine Barbiturates Neg (NEG) Urine Phencyclidine Screen Neg (NEG) Urine Amphetamine/Methamphetamine Neg (NEG) Urine Benzodiazepines Screen Neg (NEG) Urine Cocaine Screen Pos (NEG) Urine Cannabinoids Screen Neg (NEG) Urine Ethyl Alcohol Neg (NEG) Test 02/26/17 03:56 White Blood Count 4.2x10^3/uL (4.0-11.0) Red Blood Count 3.72x10^6/uL (4.30-5.70) Hemoglobin 11.5g/dL (13.0-17.5) Hematocrit 35.0% (39.0-53.0) Mean Corpuscular Volume 94fL (79-100) Mean Corpuscular Hemoglobin 31pg (25-35) Mean Corpuscular Hemoglobin Concent 33g/dL (31-37) Red Cell Distribution Width 14.8% (11.5-14.5) Platelet Count 230x10^3/uL (140-400) Neutrophils (%) (Auto) 54% (31-73) Lymphocytes (%) (Auto) 29% (24-48) Monocytes (%) (Auto) 13% (0-9) Eosinophils (%) (Auto) 4% (0-3) Basophils (%) (Auto) 1% (0-3) Neutrophils # (Auto) 2.3x10^3uL (1.8-7.7) Lymphocytes # (Auto) 1.2x10^3/uL (1.0-4.8) Monocytes # (Auto) 0.5x10^3/uL (0.0-1.1) Eosinophils # (Auto) 0.2x10^3/uL (0.0-0.7) Basophils # (Auto) 0.0x10^3/uL (0.0-0.2) Laboratory Tests Test 02/25/17 16:00 02/26/17 03:56 Urine Opiates Screen Neg (NEG) Urine Methadone Screen Neg (NEG) Urine Barbiturates Neg (NEG) Urine Phencyclidine Screen Neg (NEG) Urine Amphetamine/Methamphetamine Neg (NEG) Urine Benzodiazepines Screen Neg (NEG) Urine Cocaine Screen Pos (NEG) Urine Cannabinoids Screen Neg (NEG) Urine Ethyl Alcohol Neg (NEG) White Blood Count 4.2x10^3/uL (4.0-11.0) Red Blood Count 3.72x10^6/uL (4.30-5.70) Hemoglobin 11.5g/dL (13.0-17.5) Hematocrit 35.0% (39.0-53.0) Mean Corpuscular Volume 94fL (79-100) Mean Corpuscular Hemoglobin 31pg (25-35) Mean Corpuscular Hemoglobin Concent 33g/dL (31-37) Red Cell Distribution Width 14.8% (11.5-14.5) Platelet Count 230x10^3/uL (140-400) Neutrophils (%) (Auto) 54% (31-73) Lymphocytes (%) (Auto) 29% (24-48) Monocytes (%) (Auto) 13% (0-9) Eosinophils (%) (Auto) 4% (0-3) Basophils (%) (Auto) 1% (0-3) Neutrophils # (Auto) 2.3x10^3uL (1.8-7.7) Lymphocytes # (Auto) 1.2x10^3/uL (1.0-4.8) Monocytes # (Auto) 0.5x10^3/uL (0.0-1.1) Eosinophils # (Auto) 0.2x10^3/uL (0.0-0.7) Basophils # (Auto) 0.0x10^3/uL (0.0-0.2) Medications Active Scripts Medications Dose Route/Sig Days Date Category Dose Instructions Albuterol Sulfate Conc Neb Soln (Albuterol Sulfate) 2.5 Mg/0.5 Ml Vial.neb 1 Vial NEB Q4HRS 02/25/17 Reported Proair Hfa Inhaler (Albuterol Sulfate) 8.5 Gm Hfa.aer.ad 1 Puff INH PRN Q4HRS PRN 02/25/17 Reported Duoneb 0.5-3(2.5) Mg/3 Ml (Albuterol/Ipratropium) 3 Ml Ampul.neb 3 Ml NEB QID 02/25/17 Reported Maalox Maximum Strength Susp (Mag Hydrox/Al Hydrox/Simeth) 355 Ml Oral.susp 30 Ml PO 02/25/17 Reported Tylenol (Acetaminophen) 325 Mg Tablet 2 Tab PO PRN Q4HRS 02/25/17 Reported Tylenol (Acetaminophen) 325 Mg Tablet 2 Tab PO PRN Q4HRS 02/25/17 Reported Fleet Enema (Na Phos,M-B/Na Phos,Di-Ba) 133 Ml Enema 1 Each RC DAILY 02/25/17 Reported Bisacodyl 10 Mg Supp.rect 10 Mg RC PRN DAILY PRN 02/25/17 Reported Milk Of Magnesia (Magnesium Hydroxide) 2,400 Mg/10 Ml Oral.susp 2,400 Mg PO 02/25/17 Reported Meclizine Hcl 12.5 Mg Tablet 12.5 Mg PO PRN Q6HRS PRN 02/25/17 Reported Benzonatate 200 Mg Capsule 1 Cap PO TID 02/25/17 Reported Duoneb 0.5-3(2.5) Mg/3 Ml (Albuterol/Ipratropium) 3 Ml Ampul.neb 2 Puff PRN Q4HRS PRN 10/22/16 Reported Ethambutol Hcl 400 Mg Tablet 800 Mg DAILY 10/22/16 Reported Rifampin 300 Mg Capsule 300 Mg BID 10/22/16 Reported Digoxin 250 Mcg Tablet 0.25 Mg DAILY 10/22/16 Reported Hold for heart rate less than 90 Escitalopram Oxalate 10 Mg Tablet 10 Mg DAILY 10/22/16 Reported Temazepam 15 Mg Capsule 1 Cap HS 10/22/16 Reported Impression . 1. Progressive dyspnea secondary to acute exacerbation of chronic obstructive pulmonary disease. 2. 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 3. Severe chronic obstructive pulmonary disease. 4. Severe weight loss/protein malnutrition. Plan . OK TO TRANSFER FOLLOW UP IN 2-4 WEEKS 1. Recommend continue current treatment for MAC. 2. Treat underlying chronic obstructive pulmonary disease exacerbation. 3. PT, OT. 4. Bronchodilators. WARNER SAUNDERS MD Feb 26, 2017 08:47
[2017-02-26] MEDS ORDERED: DIGOXIN 250 MCG TABLET PO SCH (09:00)
[2017-02-26] MEDS ORDERED: ESCITALOPRAM 10 MG TABLET. PO SCH (09:00)
[2017-02-26 10:32] LABS: ALBUMIN 2.7 g/dL (3.4-5.0); ALBUMIN/GLOBULIN RATIO 0.6 (1.0-1.7); CALCIUM 9.2 mg/dL (8.5-10.1); CREATININE 0.8 mg/dL (0.7-1.3); POTASSIUM 3.6 mmol/L (3.5-5.1); TOTAL BILIRUBIN 0.2 mg/dL (0.2-1.0)
[2017-02-26 10:49] VITALS: BP 99/67
[2017-02-26] MEDS: DO NOT USE 40 MG/0.4 ML DISP.SYRIN SQ SCH (12:09)
[2017-02-26] MEDS ORDERED: PRED-220 PO (12:53)
[2017-02-26] MEDS ORDERED: DOXY100T PO (12:53)
[2017-02-26 14:38] VITALS: BP 100/69
--- NOTE | 2017-02-26 20:45 | DS ---
DATE OF DISCHARGE: 02/26/2017 ADMITTING DIAGNOSIS: Acute on chronic respiratory failure. DISMISSAL DIAGNOSES: Acute on chronic respiratory failure and Mycobacterium Avium Complex, chronic infection. SECONDARY DIAGNOSES: 1. Chronic obstructive pulmonary disease. 2. Severe protein malnutrition. 3. Debilitation. 4. Polysubstance abuse. 5. Major depression. 6. Supraventricular tachycardia. HISTORY OF PRESENT ILLNESS AND HOSPITAL COURSE: This patient is a 61-year-old male who left [facility] 24 hours prior to being admitted to the hospital. He was ambulating and caring for himself to a better extent, but within hours of being home, he began having increasing difficulty with breathing. He was evaluated by EMS, found to have oxygen saturations less than 80. He was given a breathing treatment and oxygen support and improved. He came to the Emergency Room and continued to have low oxygen saturations and was admitted for further pulmonary toilet and pulmonary consultation. The patient did improve with p.o. steroids and pulmonary toilet, but continued to have difficulty with self care. The patient's home situation was also possibly dangerous due to mold infestation of his home as a trigger to his ongoing COPD. At this point, the patient had no further care options or family to help care for him. Therefore, plans to discharge him to [facility] were made and the patient will be discharged to [facility] on 02/26/2017 on the following medications: Doxycycline 100 mg b.i.d. for 10 days, prednisone 10 mg starting at 40 mg daily, tapering by 10 mg every other day; albuterol nebulizer treatments q. 4 hours p.r.n., albuterol inhaler q. 4 hours p.r.n., Lanoxin 0.25 daily, 10 mg daily, ethambutol 800 mg daily, ipratropium bromide, albuterol nebulizer solutions q. 6 hours routinely, rifampin 300 mg b.i.d. and temazepam 15 mg at bedtime. DEBORAH PICKENS MD DR: FAISAL/veronica JOB#: [id number] / [id number]
== END 2017-02-26 17:13 | DRG 189 ==
LOC: ER 19:09 → 5 SOUTH 19:46
PROVIDERS: ADMIT Family Medicine; ATTEND Family Medicine
DX: J96.20 Acute and chronic respiratory failure, unspecified whether with hypoxia or hypercapnia (principal); E43 Unspecified severe protein-calorie malnutrition; J44.1 Chronic obstructive pulmonary disease with (acute) exacerbation; Z68.1 Body mass index [BMI] 19.9 or less, adult; A31.0 Pulmonary mycobacterial infection; I42.9 Cardiomyopathy, unspecified; I47.1 Supraventricular tachycardia; F41.9 Anxiety disorder, unspecified; F14.10 Cocaine abuse, uncomplicated; F15.90 Other stimulant use, unspecified, uncomplicated; F32.9 Major depressive disorder, single episode, unspecified; Z80.1 Family history of malignant neoplasm of trachea, bronchus and lung; Z80.8 Family history of malignant neoplasm of other organs or systems; Z86.11 Personal history of tuberculosis; Z87.891 Personal history of nicotine dependence
CPT/HCPCS: 36415; 71010; 80048; 80053; 84484; 85027; 86703; 93005; 94250; 94640; 96374; G0481; J1650; J2930; J7030; J7512; J7620; 99285-25

== ENCOUNTER 2017-03-13 17:03 | Inpatient (IN) | payer MEDICAID, OTHER ==
[~2017-03-13] VITALS: Ht 172.7 cm; Wt 51.7 kg
[~2017-03-13 17:03] MED LIST changes: +ACET325T9 PO; +ALBU2.5V14 NEB; +BENZ200C39 PO; +BISA10SU2 RC; +DOXY100T PO; +IPRA3AMP NEB; +MAG355OR12 PO; +MAGN2400 PO; +MECL12.52 PO; +NA P133E2 RC; +PROAIR HFA8.5 GM INH
[2017-03-13 17:25] LABS: BASO % 1 % (0-3); EOS % 6 % (0-3); HEMATOCRIT 40.3 % (39.0-53.0); HEMOGLOBIN 13.1 g/dL (13.0-17.5); LYMPH % 15 % (24-48); MEAN CORPUSCULAR HEMOGLOBIN 31 pg (25-35); MEAN CORPUSCULAR HGB CONC 33 g/dL (31-37); MEAN CORPUSCULAR VOLUME 95 fL (79-100); MONO % 13 % (0-9); NEUT % 64 % (31-73); PLATELET COUNT 245 x10^3/uL (140-400); RED BLOOD COUNT 4.25 x10^6/uL (4.30-5.70); RED CELL DISTRIBUTION WIDTH 14.4 % (11.5-14.5); WHITE BLOOD COUNT 6.2 x10^3/uL (4.0-11.0)
[2017-03-13] MEDS ORDERED: methylPREDNISolone SOD SUCC PF 125 MG/2 ML VIAL. IV ONE (17:30)
[2017-03-13] MEDS ORDERED: IPRATRPIUM/ALBUTEROL 0.5/2.5MG 3 ML NEBU. NEB ONE (17:30)
[2017-03-13 17:34] LABS: CALCIUM 9.4 mg/dL (8.5-10.1); CREATININE 0.6 mg/dL (0.7-1.3); GFR 136.5; POTASSIUM 4.3 mmol/L (3.5-5.1)
[2017-03-13 17:39] LABS: ALBUMIN/GLOBULIN RATIO 0.6 (1.0-1.7); TOTAL BILIRUBIN 0.3 mg/dL (0.2-1.0)
[2017-03-13] MEDS ORDERED: PIPERACILLIN/TAZOBACTAM 4.5 GM in IV NORMAL SALINE 100ML 100 ML IV ONE ×2 (18:15→20:00)
[2017-03-13] MEDS ORDERED: BENZONATATE 100 MG CAPSULE. PO ONE (18:15)
[2017-03-13 18:37] LABS: OBC FLU VALID
[2017-03-13] MEDS ORDERED: ONDANSETRON PF 4 MG/2 ML VIAL. IV PRN (19:00)
[2017-03-13] MEDS ORDERED: VANCOMYCIN 1.25 GM in IV NORMAL SALINE 250ML 250 ML IV ONE (19:00)
[2017-03-13] MEDS ORDERED: FENTANYL PF 100 MCG/2 ML VIAL. IV PRN (19:00)
[2017-03-13] MEDS ORDERED: ACETAMINOPHEN 325 MG TABLET. PO PRN (19:00)
--- NOTE | 2017-03-13 19:20 | ED.ADGEN ---
Past Medical History Past Medical History: COPD, Pneumonia Additional Past Medical Histor: CARDIOMYOPATHY, MAC Past Surgical History: Other Additional Past Surgical Histo: bronchoscopy Alcohol Use: None Drug Use: None, Cocaine Adult General Chief Complaint Chief Complaint: SHORTNESS OF BREATH HPI HPI Patient is a 61 year old and, history of COPD, cardiomyopathy, MAC on rifampin , pneumonia, who presents to the emergency department from his emergency department via EMS with a report of respiratory distress, hypoxia, and concern for recurrent pneumonia. Upon arrival to the emergency department, patient complaint of shortness of breath and productive cough over the past 3 days. Patient had been hypoxic at his nursing facility, and arrived on 8 L of normal saline, and was transitioned to a DuoNeb. Patient's oxygen saturation is 93-94% on room air upon arousing the ED, he states that he is feeling better at this time. Patient denies any fevers or chills, states his cough is productive of thick white and yellow sputum. He states that he has chest pain in the center of his chest especially deep inspiration, and soreness in his ribs, denies any injuries, any lightheadedness or dizziness, any nausea or vomiting, any back or flank pain, any urinary complaints. His flu vaccinations is up-to-date. His primary provider is Dr. Royal at the nursing facility. Patient received a chest x -ray today in the facility after complaining of feeling "sick" over the past 3 days, including initially expressing rhinorrhea and sore throat. No sore throat currently. Chest x-rays concerning for recurrent pneumonia for the patient's report. Review of Systems Review of Systems Constitutional: Denies fever or chills. [] Eyes: Denies change in visual acuity. [] HENT: Denies nasal congestion or sore throat. [] Respiratory: Cough productive of thick yellow and white sputum, increasing shortness of breath for the past several days. Cardiovascular: Anterior chest wall pain and lateral rib pain, no edema. GI: Denies abdominal pain, nausea, vomiting, bloody stools or diarrhea. [] : Denies dysuria. [] Musculoskeletal: Denies back pain or joint pain. [] Integument: Denies rash. [] Neurologic: Denies headache, focal weakness or sensory changes. [] Endocrine: Denies polyuria or polydipsia. [] Lymphatic: Denies swollen glands. [] Psychiatric: Denies depression or anxiety. [] Current Medications Current Medications Current Medications Medications (Trade) Dose Ordered Sig/Ken Start Time Stop Time Status Last Admin Dose Admin Albuterol/ Ipratropium (Duoneb) 3 ml 1X ONCE 03/13/17 17:30 03/13/17 17:31 DC 03/13/17 17:21 3 ML Methylprednisolone Sodium Succinate (Solu-Medrol 125mg Vial) 125 mg 1X ONCE 03/13/17 17:30 03/13/17 17:31 DC 03/13/17 18:24 125 MG Allergies Allergies Allergies Coded Allergies Type Severity Reaction Last Updated Verified No Known Drug Allergies 02/02/16 No Physical Exam Physical Exam Constitutional: Well developed, cachectic, no acute distress, chronically ill in appearance. [] HENT: Normocephalic, atraumatic, bilateral external ears normal, oropharynx moist, no oral exudates, nose normal. [] Eyes: PERRLA, EOMI, conjunctiva normal, no discharge. [] Neck: Normal range of motion, no tenderness, supple, no stridor. [] Cardiovascular:Heart rate regular rhythm, no murmur , S1, S2, no rubs or gallops. [] Lungs & Thorax: Patient with significantly diminished breath sounds bilaterally , noted to have expiratory wheeze throughout, with rhonchi noted in the left lower lobe, also right lower lobe. No chest wall crepitus, mild tender to palpation along the lateral aspect of the rib cage and anterior chest. Doesn't reproduce symptoms. [] Abdomen: Bowel sounds normal, soft, no tenderness, no rebound, rigidity, no guarding, no masses, no pulsatile masses. [] Skin: Warm, dry, no erythema, no rash. [] Back: No tenderness, no CVA tenderness. [] Extremities: No tenderness, no cyanosis, no clubbing, ROM intact, no edema. Muscle wasting noted, negative Homans sign. [] Neurologic: Alert and oriented X 3, normal motor function, normal sensory function, no focal deficits noted. [] Psychologic: Affect normal, judgement normal, mood normal. [] Current Patient Data Vital Signs Vital Signs Date Time Temp Pulse Resp B/P Pulse Ox O2 Delivery O2 Flow Rate FiO2 03/13/17 17:30 74 25 96/68 98 Room Air 03/13/17 17:23 97.6 97.6 Lab Values Laboratory Tests Test 03/13/17 17:15 White Blood Count 6.2x10^3/uL (4.0-11.0) Red Blood Count 4.25x10^6/uL (4.30-5.70) L Hemoglobin 13.1g/dL (13.0-17.5) Hematocrit 40.3% (39.0-53.0) Mean Corpuscular Volume 95fL (79-100) Mean Corpuscular Hemoglobin 31pg (25-35) Mean Corpuscular Hemoglobin Concent 33g/dL (31-37) Red Cell Distribution Width 14.4% (11.5-14.5) Platelet Count 245x10^3/uL (140-400) Neutrophils (%) (Auto) 64% (31-73) Lymphocytes (%) (Auto) 15% (24-48) L Monocytes (%) (Auto) 13% (0-9) H Eosinophils (%) (Auto) 6% (0-3) H Basophils (%) (Auto) 1% (0-3) Neutrophils # (Auto) 3.9x10^3uL (1.8-7.7) Lymphocytes # (Auto) 1.0x10^3/uL (1.0-4.8) Monocytes # (Auto) 0.8x10^3/uL (0.0-1.1) Eosinophils # (Auto) 0.4x10^3/uL (0.0-0.7) Basophils # (Auto) 0.0x10^3/uL (0.0-0.2) Sodium Level 139mmol/L (136-145) Potassium Level 4.3mmol/L (3.5-5.1) Chloride Level 103mmol/L (98-107) Carbon Dioxide Level 30mmol/L (21-32) Anion Gap 6 (6-14) Blood Urea Nitrogen 13mg/dL (8-26) Creatinine 0.6mg/dL (0.7-1.3) L Estimated GFR (Cockcroft-Gault) 136.5 BUN/Creatinine Ratio 22 (6-20) H Glucose Level 114mg/dL (70-99) H Lactic Acid Level 0.7mmol/L (0.4-2.0) Calcium Level 9.4mg/dL (8.5-10.1) Total Bilirubin 0.3mg/dL (0.2-1.0) Aspartate Amino Transferase (AST) 24U/L (15-37) Alanine Aminotransferase (ALT) 22U/L (16-63) Alkaline Phosphatase 52U/L (46-116) Troponin I Quantitative < 0.017ng/mL (0.000-0.055) AS-Bbn-E-Type Natriuretic Peptide 472pg/mL (0-124) H Total Protein 8.0g/dL (6.4-8.2) Albumin 3.0g/dL (3.4-5.0) L Albumin/Globulin Ratio 0.6 (1.0-1.7) L Laboratory Tests 03/13/17 17:15 Laboratory Tests 03/13/17 17:15 EKG EKG EC: Sinus rhythm, heart rate 82 beats/minute, upright axis, QTC of 381, WV of 208, QRS of 66, patient with contour abnormalities noted in the anterior septal leads, with mild baseline artifact, no ST elevations or depressions, abnormal ECG, does not meet STEMI criteria. As interpreted by me. [] Radiology/Procedures Radiology/Procedures Chest x-ray: One view: Patient with hyperinflation, and flattening of diaphragms bilaterally, noted to have worsening of possible infiltrate versus scarring of the lower left lobe, with persistent changes noted in the left upper lobe, and possible mid and lower field infiltrates on the right, no pneumothorax, no bony abnormalities identified, cardiac silhouette is preserved. No effusions. As interpreted by me. [] Course & Med Decision Making Course & Med Decision Making Pertinent Labs and Imaging studies reviewed. (See chart for details) Patient's examination and history are concerning for recurrent pneumonia. Patient is afebrile emergency department, A studies, chest x-ray obtained without issue in the ED. Patient received nebulizer treatment in the ED, along with Solu-Medrol. Chest x-ray is concerning for lower lobe pneumonia, bilaterally, left greater than right, versus persistent scarring. No evidence of significant effusion, no pneumothorax identified. Patient is resting more comfortably receiving breathing treatment and medications the ED, oxygen saturation remains in the mid 90s on room air at this time. He states his air hunger is feeling improved. Patient also received Tessalon Perle, and is taking by mouth without issue. Patient is agreeable for admission to the hospital for management of healthcare associated pneumonia, IV] initiated in the ED, blood cultures pending, along with a flu swab which was negative. Findings as above discussed with Dr. Royal, the patient's primary care provider, patient accepted to his service as a full admission to the medical telemetry floor with treatment as stated, Dr. Royal also requested a ABG performed, at this time the patient is resting comfortably with no evidence respiratory distress, and a consultation was placed for Dr. Gonzalez of pulmonary critical care. Bridge orders entered per discussion. Dragon Disclaimer Dragon Disclaimer This electronic medical record was generated, in whole or in part, using a voice recognition dictation system. Departure Impression: Primary Impression: COPD exacerbation Additional Impression: HCAP (healthcare-associated pneumonia) Disposition: 09 ADMITTED INPATIENT Admitting Physician: Shari Royal Condition: IMPROVED Problem Qualifiers ABILIO GONZALES DO Mar 13, 2017 19:20
[2017-03-13 19:28] LABS: HCO3 ABG 30 mmol/L (21-28); PCO2 ABG 45 mmHg (35-46); PH ABG 7.44 (7.35-7.45); PO2 ABG 61 mmHg (65-108); SAT O2 ABG 92 % (92-99)
[2017-03-13 19:35] LABS: FIO2 ABG 21
--- NOTE | 2017-03-13 19:35 | ACF ---
Admission Forms Criteria COPD Clinical Indications for Admission to Inpatient Care (Place 'X' for any and all applicable criteria): Admission is indicated for ANY ONE of the following (1)(2)(3): [X]I. Acute exacerbation by high-risk comorbidity (e.g., pneumonia, dysrhythmia, heart failure, pleural effusion, pneumothorax) or severe underlying COPD (e.g., steroid dependent) [ ]II. Inpatient admission required rather than observation care (see Chronic Obstructive Pulmonary Disease: Observation Care) because of ANY ONE of the following: [ ]a) New or pre-existing signs or symptoms of COPD (eg, dyspnea or Tachypnea at rest or with minimal activity) that persist despite outpatient and observation care treatment [ ]b) New-onset hypoxemia (room air SaO2 less than 90%, PO2 less than 60 mm Hg (8.0 kPa)) that persists despite outpatient and observation care treatment [ ]c) Worsening of pre-existing hypoxemia (eg, new or increased requirement for supplemental oxygen to maintain oxygenation at baseline level) that persists despite outpatient and observation care treatment, with oxygen treatment needs performable only in acute inpatient setting [ ]d) Hypercarbia (PCO2 greater than 40 mm Hg (5.3 kPa))-induced respiratory acidosis (pH less than 7.35) that persists despite outpatient and observation care treatment [ ]e) Supplemental oxygen or respiratory treatments for over 24 hours that are performable only in acute inpatient setting [ ]f) Chest tube placement with active evacuation (e.g., suction, drainage) (5) [ ]g) Other condition, treatment or monitoring requiring inpatient admission [ ]III. Planned invasive surgical or diagnostic procedures requiring acute- care hospitalization [ ]IV. Acute respiratory failure (e.g., uncompensated hypercarbia, severe hypoxemia) [ ]V. Severe comorbid condition (e.g., severe steroid myopathy, acute vertebral fracture) that has acutely worsened pulmonary function [ ]. Confusion state, lethargy, obtundation, stupor or coma Extended stay beyond goal length of stay may be needed for (31)(32): [ ]a ) Respiratory Failure. [ ]b) Severe or persisting hypoxemia or hypercarbia [ ]c) Severe or persistent dyspnea [ ]d) Comorbidities (e.g. chronic heart failure, atrial fibrillation with rapid response, pneumonia) [ ]e) Malnutrition The original [facility] content created by [facility] has been revised. The portions of the content which have been revised are identified through the use of italic text or in bold, and [facility] has neither reviewed nor approved the modified material. All other unmodified content is copyright [facility]. Please see references footnoted in the original [facility] edition 2016 Admission Criteria Met?: Yes DEB SINGLETON Mar 13, 2017 19:35
[2017-03-13] MEDS: IPRATRPIUM/ALBUTEROL 0.5/2.5MG 3 ML NEBU. NEB SCH (20:13)
[2017-03-13] MEDS: VANCOMYCIN PER PHARMACY MC PRN (20:52)
[2017-03-13 23:00] VITALS: BP 98/72
[2017-03-13] MEDS ORDERED: ALBUTEROL SULFATE 2.5 MG/3 ML NEBU. NEB PRN (23:30)
[2017-03-13] MEDS ORDERED: GUAI600T38 PO (23:31)
[2017-03-13] MEDS: TEMAZEPAM 15 MG CAPSULE PO SCH (23:56)
[2017-03-13] MEDS: GUAIFENESIN ER 600 MG TABLET.ER PO SCH (23:56)
[2017-03-14] VITALS (7 sets, daily range): BP systolic 85–104; BP diastolic 52–73
[2017-03-14] MEDS: PIPERACILLIN/TAZOBACTAM 4.5 GM in IV NORMAL SALINE 100ML 100 ML IV SCH ×4 (01:32→17:10)
[2017-03-14 05:46] LABS: BASO % 1 % (0-3); EOS % 1 % (0-3); HEMATOCRIT 35.8 % (39.0-53.0); LYMPH # 0.9 x10^3/uL (1.0-4.8); LYMPH % 18 % (24-48); MEAN CORPUSCULAR HEMOGLOBIN 31 pg (25-35); MEAN CORPUSCULAR HGB CONC 34 g/dL (31-37); MEAN CORPUSCULAR VOLUME 93 fL (79-100); MONO % 10 % (0-9); NEUT % 71 % (31-73); PLATELET COUNT 249 x10^3/uL (140-400); RED BLOOD COUNT 3.87 x10^6/uL (4.30-5.70); RED CELL DISTRIBUTION WIDTH 14.4 % (11.5-14.5)
[2017-03-14 06:02] LABS: CREATININE 0.9 mg/dL (0.7-1.3); GFR 85.5; POTASSIUM 4.1 mmol/L (3.5-5.1)
[2017-03-14] MEDS: IPRATRPIUM/ALBUTEROL 0.5/2.5MG 3 ML NEBU. NEB SCH ×6 (06:22→23:32)
--- NOTE | 2017-03-14 06:51 | EKG ---
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
[2017-03-14] MEDS: GUAIFENESIN ER 600 MG TABLET.ER PO SCH ×2 (08:06→20:55)
--- NOTE | 2017-03-14 08:16 | RAD ---
Portable chest, 03/13/2017: History: Shortness of breath Comparison is made to a study from 02/24/2017. The heart size is normal. There is volume loss on the left with moderate pleural/parenchymal opacities, most prominent in the left apical region. The findings are unchanged and are probably predominantly due to scarring. There is mild prominence of the right pulmonary markings compatible with fibrosis. No new pulmonary opacities are seen. There is no evidence of pleural fluid. IMPRESSION: 1. Unchanged moderate left chest pleural-parenchymal opacities with volume loss compatible with fibrosis, although a component of chronic pneumonitis cannot be excluded. 2. No new chest abnormality is detected.
[2017-03-14] MEDS ORDERED: VANCOMYCIN 750 MG in IV NORMAL SALINE 250ML 250 ML IV SCH (09:00)
[2017-03-14] MEDS ORDERED: ALBUTEROL SULFATE 2.5 MG/3 ML NEBU. NEB SCH (11:30)
[2017-03-14] MEDS ORDERED: ETHAMBUTOL HCL 400 MG TABLET PO SCH (12:00)
[2017-03-14] MEDS ORDERED: GUAIFENESIN ER 600 MG TABLET.ER PO SCH (12:00)
[2017-03-14] MEDS: ESCITALOPRAM 10 MG TABLET. PO SCH (12:05)
[2017-03-14] MEDS: DIGOXIN 250 MCG TABLET. PO SCH (12:05)
[2017-03-14] MEDS: riFAMpin 300 MG CAPSULE. PO SCH ×2 (12:05→20:55)
[2017-03-14] MEDS: VANCOMYCIN PER PHARMACY MC PRN (12:21)
--- NOTE | 2017-03-14 12:31 | PDOC ---
Infectious Disease Note Vital Sign Vital Signs Vital Signs Date Time Temp Pulse Resp B/P Pulse Ox O2 Delivery O2 Flow Rate FiO2 03/14/17 12:05 83 99/60 03/14/17 11:13 Room Air 03/14/17 07:31 92 03/14/17 07:00 96.6 24 2.0 96.6 Labs Lab Laboratory Tests Test 03/13/17 17:15 03/13/17 18:10 03/13/17 18:38 03/14/17 04:30 White Blood Count 6.2x10^3/uL (4.0-11.0) 5.0x10^3/uL (4.0-11.0) Red Blood Count 4.25x10^6/uL (4.30-5.70) 3.87x10^6/uL (4.30-5.70) Hemoglobin 13.1g/dL (13.0-17.5) 12.0g/dL (13.0-17.5) Hematocrit 40.3% (39.0-53.0) 35.8% (39.0-53.0) Mean Corpuscular Volume 95fL (79-100) 93fL (79-100) Mean Corpuscular Hemoglobin 31pg (25-35) 31pg (25-35) Mean Corpuscular Hemoglobin Concent 33g/dL (31-37) 34g/dL (31-37) Red Cell Distribution Width 14.4% (11.5-14.5) 14.4% (11.5-14.5) Platelet Count 245x10^3/uL (140-400) 249x10^3/uL (140-400) Neutrophils (%) (Auto) 64% (31-73) 71% (31-73) Lymphocytes (%) (Auto) 15% (24-48) 18% (24-48) Monocytes (%) (Auto) 13% (0-9) 10% (0-9) Eosinophils (%) (Auto) 6% (0-3) 1% (0-3) Basophils (%) (Auto) 1% (0-3) 1% (0-3) Neutrophils # (Auto) 3.9x10^3uL (1.8-7.7) 3.6x10^3uL (1.8-7.7) Lymphocytes # (Auto) 1.0x10^3/uL (1.0-4.8) 0.9x10^3/uL (1.0-4.8) Monocytes # (Auto) 0.8x10^3/uL (0.0-1.1) 0.5x10^3/uL (0.0-1.1) Eosinophils # (Auto) 0.4x10^3/uL (0.0-0.7) 0.0x10^3/uL (0.0-0.7) Basophils # (Auto) 0.0x10^3/uL (0.0-0.2) 0.0x10^3/uL (0.0-0.2) Sodium Level 139mmol/L (136-145) 141mmol/L (136-145) Potassium Level 4.3mmol/L (3.5-5.1) 4.1mmol/L (3.5-5.1) Chloride Level 103mmol/L (98-107) 104mmol/L (98-107) Carbon Dioxide Level 30mmol/L (21-32) 31mmol/L (21-32) Anion Gap 6 (6-14) 6 (6-14) Blood Urea Nitrogen 13mg/dL (8-26) 17mg/dL (8-26) Creatinine 0.6mg/dL (0.7-1.3) 0.9mg/dL (0.7-1.3) Estimated GFR (Cockcroft-Gault) 136.5 85.5 BUN/Creatinine Ratio 22 (6-20) Glucose Level 114mg/dL (70-99) 146mg/dL (70-99) Lactic Acid Level 0.7mmol/L (0.4-2.0) Calcium Level 9.4mg/dL (8.5-10.1) 9.0mg/dL (8.5-10.1) Total Bilirubin 0.3mg/dL (0.2-1.0) Aspartate Amino Transf (AST/SGOT) 24U/L (15-37) Alanine Aminotransferase (ALT/SGPT) 22U/L (16-63) Alkaline Phosphatase 52U/L (46-116) Troponin I Quantitative < 0.017ng/mL (0.000-0.055) NE-Yra-N-Type Natriuretic Peptide 472pg/mL (0-124) Total Protein 8.0g/dL (6.4-8.2) Albumin 3.0g/dL (3.4-5.0) Albumin/Globulin Ratio 0.6 (1.0-1.7) Influenza Type A Antigen Negative (NEGATIVE) Influenza Type B Antigen Negative (NEGATIVE) O2 Saturation 92% (92-99) Arterial Blood pH 7.44 (7.35-7.45) Arterial Blood pCO2 at Patient Temp 45mmHg (35-46) Arterial Blood pO2 at Patient Temp 61mmHg (65-108) Arterial Blood HCO3 30mmol/L (21-28) Arterial Blood Base Excess 5mmol/L (-3-3) FiO2 21 Objective Assessment Pulmonary MAC COPD exacerbation Malnutrition Plan Plan of Care cont MAC treatment broncho dilators zosyn to stop soon AMOR TOPETE MD Mar 14, 2017 12:31
--- NOTE | 2017-03-14 13:22 | HP ---
ADMIT DATE: 03/13/2017 HISTORY OF PRESENT ILLNESS: The patient is a 61-year-old male patient, a resident at [facility] who apparently was noted to be extremely short of breath, hypoxic and symptoms has been worsening for the last 3 days despite being on 8 liters of oxygen and multiple treatments with DuoNeb. On arrival to the Emergency Room, he was treated with DuoNeb and did complain of chest pain that is mostly retrosternal. He has cough with thick whitish to yellowish sputum. He had some lightheadedness. Denied any fever, chills or rigors. He did have a chest x-ray done at the [facility] and apparently showed that he has what seems to be multiple bilateral infiltrate and therefore, the patient was sent to the Emergency Room. Repeat chest x-ray showed that the patient has unchanged moderate left chest pleural parenchymal opacities with volume loss compatible with fibrosis, although component of chronic pneumonitis cannot be excluded. No new chest abnormalities detected. The patient has no leukocytosis and was actually afebrile. However, given his symptoms, a decision was made to admit him to start him on healthcare-associated pneumonia and to consult the class a lineman as well as Infectious disease specialist. PAST MEDICAL HISTORY: Significant for severe chronic obstructive pulmonary disease, cardiomyopathy with an ejection fraction of 35% in the past. He has a history of Mycobacterium avium intracellulare complex, severe protein calorie malnutrition and major depression. FAMILY HISTORY: Unremarkable. SOCIAL HISTORY: The patient is currently a [facility] resident. He does not smoke nor does he drink alcohol. Has a history of cocaine abuse before. FAMILY HISTORY: Unremarkable. REVIEW OF SYSTEMS: The patient denied any blurring of vision, cataract, glaucoma or macular degeneration. Denied any earache, tinnitus or sensorineural deafness. Denied any nosebleeds, stuffy nose or postnasal drip. Denied any nausea, vomiting, diarrhea or constipation. Denied any hematemesis, melena or hematochezia. Denied any dysuria, frequency or hematuria. Did complain of chest pain, shortness of breath, cough with yellowish sputum. Denied any chills, rigors or fever. On arrival to the Emergency Room, he apparently was tachypneic, slightly pale, but no jaundice, cyanosis or thyromegaly. No jugular venous distention. No limb edema. PHYSICAL EXAMINATION: GENERAL: VITAL SIGNS: His heart rate was 77, blood pressure was 100/69, temperature was 97.6, respiratory rate was 22 and oxygen saturation was 95% on room air. HEAD, EYES, EARS, NOSE, AND THROAT: Showed normocephalic, atraumatic. NECK: Supple, with no lymphadenopathy, no thyromegaly. No jugular venous distention. No audible bruit. HEART: Showed normal first and second sounds. No gallop, rub or murmur. CHEST: Shows central trachea, equally reduced expansion, reduced air entry, vesicular sounds with few crepitation mostly in the left side, I could not really appreciate any wheezing. ABDOMEN: Scaphoid, soft, nontender. NEUROLOGIC: He is awake, alert, responding appropriately. Cranial nerves intact. EXTREMITIES: He moves extremities without difficulty. LABORATORY DATA: On arrival to the Emergency Room showed a white count of 6200, hemoglobin 13.1, hematocrit 40.3, MCV 95 and platelet count of 245,000 with a manual differential showed 64% polymorphs, 15% lymphocytes and 13% monocytes. Blood gases showed a pH of 7.44, pCO2 of 45, pO2 61, bicarbonate 30, and oxygen saturation was 92% on FIO2 of 21%. His chemistry showed serum sodium of 139, potassium 4.3, chloride 103, bicarbonate 30, anion gap of 6, BUN 13, creatinine 0.6, estimated GFR was 136 mL per minute. His glucose was 114. Calcium is 9.4. Total bilirubin, AST, ALT, alkaline phosphatase were normal. His total protein was 8, albumin was 3. His influenza A and B were both negative and chest x-ray according to the radiologist showed that the heart size is normal. There is volume loss on the left with moderate pleural parenchymal opacities, most prominent in the left apical region. The finding unchanged probably predominantly due to scarring. There is mild prominence of the right pulmonary markings compatible with fibrosis, no new pulmonary opacities are seen. There is no evidence of pleural fluid. ASSESSMENT AND PLAN: I will consult the class a lineman as well as the infectious disease specialist. Continue with the healthcare-associated pneumonia protocol. We will follow him closely and decide on further management accordingly. MANI MCHUGH MD DR: MIQUEL/veronica JOB#: [id number] / [id number]
[2017-03-14] MEDS: AZITHROMYCIN 250 MG TABLET. PO SCH (14:07)
--- NOTE | 2017-03-14 17:43 | PDOC ---
PULMONARY PROGRESS NOTES Vitals Vital Signs Date Time Temp Pulse Resp B/P Pulse Ox O2 Delivery O2 Flow Rate FiO2 03/14/17 15:44 94 Room Air 03/14/17 15:00 97.7 78 26 101/73 2.0 97.7 General: Alert, No acute distress Lungs: Crackles Cardiovascular: S1, S2 Abdomen: Soft, Non-tender Extremities: No Edema, Other Labs Laboratory Tests Test 03/13/17 17:15 03/13/17 18:10 03/13/17 18:38 03/13/17 23:30 White Blood Count 6.2x10^3/uL (4.0-11.0) Red Blood Count 4.25x10^6/uL (4.30-5.70) Hemoglobin 13.1g/dL (13.0-17.5) Hematocrit 40.3% (39.0-53.0) Mean Corpuscular Volume 95fL (79-100) Mean Corpuscular Hemoglobin 31pg (25-35) Mean Corpuscular Hemoglobin Concent 33g/dL (31-37) Red Cell Distribution Width 14.4% (11.5-14.5) Platelet Count 245x10^3/uL (140-400) Neutrophils (%) (Auto) 64% (31-73) Lymphocytes (%) (Auto) 15% (24-48) Monocytes (%) (Auto) 13% (0-9) Eosinophils (%) (Auto) 6% (0-3) Basophils (%) (Auto) 1% (0-3) Neutrophils # (Auto) 3.9x10^3uL (1.8-7.7) Lymphocytes # (Auto) 1.0x10^3/uL (1.0-4.8) Monocytes # (Auto) 0.8x10^3/uL (0.0-1.1) Eosinophils # (Auto) 0.4x10^3/uL (0.0-0.7) Basophils # (Auto) 0.0x10^3/uL (0.0-0.2) Sodium Level 139mmol/L (136-145) Potassium Level 4.3mmol/L (3.5-5.1) Chloride Level 103mmol/L (98-107) Carbon Dioxide Level 30mmol/L (21-32) Anion Gap 6 (6-14) Blood Urea Nitrogen 13mg/dL (8-26) Creatinine 0.6mg/dL (0.7-1.3) Estimated GFR (Cockcroft-Gault) 136.5 BUN/Creatinine Ratio 22 (6-20) Glucose Level 114mg/dL (70-99) Lactic Acid Level 0.7mmol/L (0.4-2.0) Calcium Level 9.4mg/dL (8.5-10.1) Total Bilirubin 0.3mg/dL (0.2-1.0) Aspartate Amino Transf (AST/SGOT) 24U/L (15-37) Alanine Aminotransferase (ALT/SGPT) 22U/L (16-63) Alkaline Phosphatase 52U/L (46-116) Troponin I Quantitative < 0.017ng/mL (0.000-0.055) JX-Gsu-A-Type Natriuretic Peptide 472pg/mL (0-124) Total Protein 8.0g/dL (6.4-8.2) Albumin 3.0g/dL (3.4-5.0) Albumin/Globulin Ratio 0.6 (1.0-1.7) Influenza Type A Antigen Negative (NEGATIVE) Influenza Type B Antigen Negative (NEGATIVE) O2 Saturation 92% (92-99) Arterial Blood pH 7.44 (7.35-7.45) Arterial Blood pCO2 at Patient Temp 45mmHg (35-46) Arterial Blood pO2 at Patient Temp 61mmHg (65-108) Arterial Blood HCO3 30mmol/L (21-28) Arterial Blood Base Excess 5mmol/L (-3-3) FiO2 21 Nasal Screen MRSA (PCR) Negative (Negative) Test 03/14/17 04:30 White Blood Count 5.0x10^3/uL (4.0-11.0) Red Blood Count 3.87x10^6/uL (4.30-5.70) Hemoglobin 12.0g/dL (13.0-17.5) Hematocrit 35.8% (39.0-53.0) Mean Corpuscular Volume 93fL (79-100) Mean Corpuscular Hemoglobin 31pg (25-35) Mean Corpuscular Hemoglobin Concent 34g/dL (31-37) Red Cell Distribution Width 14.4% (11.5-14.5) Platelet Count 249x10^3/uL (140-400) Neutrophils (%) (Auto) 71% (31-73) Lymphocytes (%) (Auto) 18% (24-48) Monocytes (%) (Auto) 10% (0-9) Eosinophils (%) (Auto) 1% (0-3) Basophils (%) (Auto) 1% (0-3) Neutrophils # (Auto) 3.6x10^3uL (1.8-7.7) Lymphocytes # (Auto) 0.9x10^3/uL (1.0-4.8) Monocytes # (Auto) 0.5x10^3/uL (0.0-1.1) Eosinophils # (Auto) 0.0x10^3/uL (0.0-0.7) Basophils # (Auto) 0.0x10^3/uL (0.0-0.2) Sodium Level 141mmol/L (136-145) Potassium Level 4.1mmol/L (3.5-5.1) Chloride Level 104mmol/L (98-107) Carbon Dioxide Level 31mmol/L (21-32) Anion Gap 6 (6-14) Blood Urea Nitrogen 17mg/dL (8-26) Creatinine 0.9mg/dL (0.7-1.3) Estimated GFR (Cockcroft-Gault) 85.5 Glucose Level 146mg/dL (70-99) Calcium Level 9.0mg/dL (8.5-10.1) Laboratory Tests Test 03/13/17 18:10 03/13/17 18:38 03/13/17 23:30 03/14/17 04:30 Influenza Type A Antigen Negative (NEGATIVE) Influenza Type B Antigen Negative (NEGATIVE) O2 Saturation 92% (92-99) Arterial Blood pH 7.44 (7.35-7.45) Arterial Blood pCO2 at Patient Temp 45mmHg (35-46) Arterial Blood pO2 at Patient Temp 61mmHg (65-108) Arterial Blood HCO3 30mmol/L (21-28) Arterial Blood Base Excess 5mmol/L (-3-3) FiO2 21 Nasal Screen MRSA (PCR) Negative (Negative) White Blood Count 5.0x10^3/uL (4.0-11.0) Red Blood Count 3.87x10^6/uL (4.30-5.70) Hemoglobin 12.0g/dL (13.0-17.5) Hematocrit 35.8% (39.0-53.0) Mean Corpuscular Volume 93fL (79-100) Mean Corpuscular Hemoglobin 31pg (25-35) Mean Corpuscular Hemoglobin Concent 34g/dL (31-37) Red Cell Distribution Width 14.4% (11.5-14.5) Platelet Count 249x10^3/uL (140-400) Neutrophils (%) (Auto) 71% (31-73) Lymphocytes (%) (Auto) 18% (24-48) Monocytes (%) (Auto) 10% (0-9) Eosinophils (%) (Auto) 1% (0-3) Basophils (%) (Auto) 1% (0-3) Neutrophils # (Auto) 3.6x10^3uL (1.8-7.7) Lymphocytes # (Auto) 0.9x10^3/uL (1.0-4.8) Monocytes # (Auto) 0.5x10^3/uL (0.0-1.1) Eosinophils # (Auto) 0.0x10^3/uL (0.0-0.7) Basophils # (Auto) 0.0x10^3/uL (0.0-0.2) Sodium Level 141mmol/L (136-145) Potassium Level 4.1mmol/L (3.5-5.1) Chloride Level 104mmol/L (98-107) Carbon Dioxide Level 31mmol/L (21-32) Anion Gap 6 (6-14) Blood Urea Nitrogen 17mg/dL (8-26) Creatinine 0.9mg/dL (0.7-1.3) Estimated GFR (Cockcroft-Gault) 85.5 Glucose Level 146mg/dL (70-99) Calcium Level 9.0mg/dL (8.5-10.1) Medications Active Scripts Medications Dose Route/Sig Days Date Category Dose Instructions Mucinex (Guaifenesin) 600 Mg Tablet.er 600 Mg PO BID 03/13/17 Reported Albuterol Sulfate Conc Neb Soln (Albuterol Sulfate) 2.5 Mg/0.5 Ml Vial.neb 1 Vial NEB Q4HRS 02/25/17 Reported Proair Hfa Inhaler (Albuterol Sulfate) 8.5 Gm Hfa.aer.ad 1 Puff INH PRN Q4HRS PRN 02/25/17 Reported Duoneb 0.5-3(2.5) Mg/3 Ml (Albuterol/Ipratropium) 3 Ml Ampul.neb 3 Ml NEB QID 02/25/17 Reported Ethambutol Hcl 400 Mg Tablet 800 Mg DAILY 10/22/16 Reported Rifampin 300 Mg Capsule 300 Mg BID 10/22/16 Reported Digoxin 250 Mcg Tablet 0.25 Mg DAILY 10/22/16 Reported Hold for heart rate less than 90 Escitalopram Oxalate 10 Mg Tablet 10 Mg DAILY 10/22/16 Reported Temazepam 15 Mg Capsule 1 Cap HS 10/22/16 Reported Impression . [id number] POSSIBLE PNEUMONIA MAC AECOPD WARNER SAUNDERS MD Mar 14, 2017 17:43
[2017-03-14] MEDS: TEMAZEPAM 15 MG CAPSULE PO SCH (20:55)
[2017-03-15] MEDS: PIPERACILLIN/TAZOBACTAM 4.5 GM in IV NORMAL SALINE 100ML 100 ML IV SCH ×5 (00:29→23:37)
[2017-03-15] MEDS: ALBUTEROL SULFATE 2.5 MG/3 ML NEBU. NEB PRN ×3 (02:52→23:21)
--- NOTE | 2017-03-15 03:21 | PN ---
DATE: SUBJECTIVE: The patient is resting slightly propped up in bed, in no apparent distress, sleepy but arousable ____ he apparently has not slept last night, but feels generally slightly better. PHYSICAL EXAMINATION: GENERAL: When I examined him, he looked pale, but no jaundice, cyanosis or thyromegaly. No jugular venous distension. No lower limb edema. VITAL SIGNS: His heart rate was 83, blood pressure was 99/60, temperature was 98.6, respiratory rate was 24, and oxygen saturation 93% with 2 liters of oxygen. The rest of clinical examination is unremarkable. ASSESSMENT: 1. Chronic obstructive pulmonary disease exacerbation. 2. Bilateral lung infiltrates, new versus old scarring. 3. 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 4. Cardiomyopathy with an ejection fraction of 35%. 5. Major depression. My plan is to consult the script reader as well as the infectious disease specialist and decide on further management accordingly. MANI MCHUGH MD DR: MIQUEL/veronica JOB#: [id number] / [id number]
[2017-03-15 03:59] VITALS: BP 93/55
--- NOTE | 2017-03-15 05:23 | CONS ---
DATE OF CONSULTATION: 03/14/2017 REQUESTING PHYSICIAN: Dr. Royal. REASON FOR CONSULTATION: Pneumonia. HISTORY OF PRESENT ILLNESS: This is a 61-year-old gentleman who is a known patient of pulmonary ____ who was at longterm and had some cold-like symptoms that he wanted [id number] cold medication, longterm would not give him and evidently according to him he gotten worse and they would not do anything and then eventually they did chest x-ray and then sent him to the hospital for pneumonia. The patient has not had any fever. There is no nausea, vomiting or diarrhea. There is some cough present and his coughing was significant that he was having off and on shortness of breath. The patient's oxygen saturation here on room air 93%. The patient is started on vancomycin and Zosyn and consult has been requested. The patient is otherwise feeling fine other than he just needed some help, he said, for his "cold." PAST MEDICAL HISTORY: Positive for pulmonary mycobacterium avium complex. He also has COPD, cardiomyopathy. SOCIAL HISTORY: Negative for smoking, alcohol, illicit drug use. ALLERGIES: No known drug allergies. CURRENT MEDICATIONS: Reviewed. REVIEW OF SYSTEMS: As per HPI, all other systems reviewed are negative. PHYSICAL EXAMINATION: GENERAL: Alert, oriented gentleman, not in distress. VITAL SIGNS: Stable, afebrile. HEENT: NAD. NECK: Supple, no JVP. No lymphadenopathy. LUNGS: Clear. HEART: S1, S2 regular. ABDOMEN: Benign. EXTREMITIES: No edema, cyanosis. SKIN: Unremarkable. NEUROLOGIC: The patient is thin, cachectic, malnourished, although in fact he has improved compared to when his diagnosis of MAC at that time, compared to that, he has put on weight also. IMPRESSION: 1. Pulmonary mycobacterium avium complex. 2. Chronic obstructive pulmonary disease exacerbation. 3. Malnutrition. 4. Cardiomyopathy. RECOMMENDATIONS: We would continue MAC treatment. We will discontinue vancomycin. Zosyn can be discontinued soon and bronchodilators and the patient should be able to go back soon to the longterm. The patient does not want to go back to the same longterm, he wants to change. We will have social service work on that. Thank you very much, Dr. Royal, for giving me the opportunity to participate in this patient's care. AMOR TOPETE MD DR: Nicki JOB#: [id number] / [id number]
[2017-03-15 05:51] LABS: CALCIUM 8.9 mg/dL (8.5-10.1); CREATININE 0.8 mg/dL (0.7-1.3)
[2017-03-15 07:00] VITALS: BP 100/64
[2017-03-15] MEDS: IPRATRPIUM/ALBUTEROL 0.5/2.5MG 3 ML NEBU. NEB SCH ×4 (07:22→19:49)
--- NOTE | 2017-03-15 08:36 | CONS ---
DATE OF CONSULTATION: 03/14/2017 ATTENDING PHYSICIAN: Shari Royal M.D. REASON FOR CONSULTATION: The patient seen in pulmonary consultation at the request of Dr. Royal for abnormal x-ray, increasing shortness of breath and cough. HISTORY OF PRESENT ILLNESS: The patient is a 61-year-old that resides at [facility] apparently was having some increasing shortness of breath and was found to be hypoxic, worsening over the last 3 days. He required 8 liters of oxygen. He had multiple nebulized treatments. The patient was evaluated at the alf. Chest x-ray was obtained. It was reported out as the patient having pneumonia. He was referred to the Emergency Department. He presents with the above complaints. He has had previous abnormal x-ray related to Mycobacterium avium intracellulare complex, he is currently being treated. I was asked to see him in consultation. The patient has already been seen by the Infectious Disease Service. He reports that his symptoms initially started with some rhinorrhea and sore throat. He is currently on IV Zosyn. PAST MEDICAL HISTORY: Remarkable for: 1. MAC currently being treated. 2. Severe COPD. 3. Cardiomyopathy, ejection fraction 25%. 4. Severe protein malnutrition. 5. Depression. PAST SURGICAL HISTORY: No recent major surgeries. FAMILY HISTORY: No family history of lung disorders. SOCIAL HISTORY: He currently resides at alf. No current use of tobacco. He has a history of cocaine abuse. REVIEW OF SYSTEMS: As indicated above, otherwise, a 10-point system was reviewed and negative. CURRENT MEDICATIONS: List was reviewed. ALLERGIES: No known drug allergies. PHYSICAL EXAMINATION: GENERAL: The patient is now down to 2 liters of oxygen supplementation, at one point at the alf, he is requiring 8 liters. HEENT: Eyes: The sclerae were nonicteric. NECK: Jugular venous distention was not elevated. No lymphadenopathy. CHEST: Full expansion. LUNGS: Usual crackles, no wheezes. CARDIOVASCULAR: Regular rate and rhythm with S1, S2, no S3. ABDOMEN: Soft, nontender, nondistended. EXTREMITIES: No clubbing, cyanosis or edema. NEUROLOGIC: The patient was awake, alert, following commands. A detailed neuro exam was not performed. LABORATORY DATA: Reviewed. Serology was negative. Arterial blood gas on room air, PaCO2 was 45, PaO2 of 61, pH was normal. IMAGING: Chest x-ray was reviewed in comparison to previous film, there may be slight increase in infiltrates. There is some fibrosis. IMPRESSION: 1. Acute on chronic respiratory failure secondary to underlying Mycobacterium avium complex intracellulare infection along with pneumonia. 2. Suspect gram-negative and gram-positive pneumonia. 3. Increase in shortness of breath secondary to the acute exacerbation of chronic obstructive pulmonary disease. 4. Malnutrition. PLAN: 1. Continue current MAC treatment and Zosyn. 2. Escalate antibiotics per Infectious Disease Service. 3. Titrate FiO2 down. 4. Nebulized treatments. 5. DVT prophylaxis. I do appreciate the privilege in participating in the patient's care. WARNER SAUNDERS MD DR: POOJA/veronica JOB#: [id number] / [id number]
[2017-03-15] MEDS: DIGOXIN 250 MCG TABLET. PO SCH (09:09)
[2017-03-15] MEDS: AZITHROMYCIN 250 MG TABLET. PO SCH (09:10)
[2017-03-15] MEDS: ESCITALOPRAM 10 MG TABLET. PO SCH (09:10)
[2017-03-15] MEDS: GUAIFENESIN ER 600 MG TABLET.ER PO SCH ×2 (09:10→21:00)
[2017-03-15] MEDS: riFAMpin 300 MG CAPSULE. PO SCH ×2 (09:10→21:00)
--- NOTE | 2017-03-15 09:36 | PDOC ---
PULMONARY PROGRESS NOTES Subjective has more sob, has cough, no pain, runny nose Vitals Vital Signs Date Time Temp Pulse Resp B/P Pulse Ox O2 Delivery O2 Flow Rate FiO2 03/15/17 09:09 69 93/55 03/15/17 07:22 94 Room Air 03/15/17 03:59 97.8 18 97.8 03/14/17 15:00 2.0 Comments ros as mentioned as above other sys otherwise neg ROS: No Nausea, No Chest Pain, No Abdominal Pain General: Alert, No acute distress HEENT: Other (nc at perrl nose throat clear) Lungs: Wheezing Cardiovascular: S1, S2 Abdomen: Soft, Non-tender Neuro Exam: Alert Extremities: No Edema, Other Skin: Warm Labs Laboratory Tests Test 03/13/17 17:15 03/13/17 18:10 03/13/17 18:38 03/13/17 23:30 White Blood Count 6.2x10^3/uL (4.0-11.0) Red Blood Count 4.25x10^6/uL (4.30-5.70) Hemoglobin 13.1g/dL (13.0-17.5) Hematocrit 40.3% (39.0-53.0) Mean Corpuscular Volume 95fL (79-100) Mean Corpuscular Hemoglobin 31pg (25-35) Mean Corpuscular Hemoglobin Concent 33g/dL (31-37) Red Cell Distribution Width 14.4% (11.5-14.5) Platelet Count 245x10^3/uL (140-400) Neutrophils (%) (Auto) 64% (31-73) Lymphocytes (%) (Auto) 15% (24-48) Monocytes (%) (Auto) 13% (0-9) Eosinophils (%) (Auto) 6% (0-3) Basophils (%) (Auto) 1% (0-3) Neutrophils # (Auto) 3.9x10^3uL (1.8-7.7) Lymphocytes # (Auto) 1.0x10^3/uL (1.0-4.8) Monocytes # (Auto) 0.8x10^3/uL (0.0-1.1) Eosinophils # (Auto) 0.4x10^3/uL (0.0-0.7) Basophils # (Auto) 0.0x10^3/uL (0.0-0.2) Sodium Level 139mmol/L (136-145) Potassium Level 4.3mmol/L (3.5-5.1) Chloride Level 103mmol/L (98-107) Carbon Dioxide Level 30mmol/L (21-32) Anion Gap 6 (6-14) Blood Urea Nitrogen 13mg/dL (8-26) Creatinine 0.6mg/dL (0.7-1.3) Estimated GFR (Cockcroft-Gault) 136.5 BUN/Creatinine Ratio 22 (6-20) Glucose Level 114mg/dL (70-99) Lactic Acid Level 0.7mmol/L (0.4-2.0) Calcium Level 9.4mg/dL (8.5-10.1) Total Bilirubin 0.3mg/dL (0.2-1.0) Aspartate Amino Transf (AST/SGOT) 24U/L (15-37) Alanine Aminotransferase (ALT/SGPT) 22U/L (16-63) Alkaline Phosphatase 52U/L (46-116) Troponin I Quantitative < 0.017ng/mL (0.000-0.055) QJ-Dls-G-Type Natriuretic Peptide 472pg/mL (0-124) Total Protein 8.0g/dL (6.4-8.2) Albumin 3.0g/dL (3.4-5.0) Albumin/Globulin Ratio 0.6 (1.0-1.7) Influenza Type A Antigen Negative (NEGATIVE) Influenza Type B Antigen Negative (NEGATIVE) O2 Saturation 92% (92-99) Arterial Blood pH 7.44 (7.35-7.45) Arterial Blood pCO2 at Patient Temp 45mmHg (35-46) Arterial Blood pO2 at Patient Temp 61mmHg (65-108) Arterial Blood HCO3 30mmol/L (21-28) Arterial Blood Base Excess 5mmol/L (-3-3) FiO2 21 Nasal Screen MRSA (PCR) Negative (Negative) Test 03/14/17 04:30 03/15/17 04:20 White Blood Count 5.0x10^3/uL (4.0-11.0) Red Blood Count 3.87x10^6/uL (4.30-5.70) Hemoglobin 12.0g/dL (13.0-17.5) Hematocrit 35.8% (39.0-53.0) Mean Corpuscular Volume 93fL (79-100) Mean Corpuscular Hemoglobin 31pg (25-35) Mean Corpuscular Hemoglobin Concent 34g/dL (31-37) Red Cell Distribution Width 14.4% (11.5-14.5) Platelet Count 249x10^3/uL (140-400) Neutrophils (%) (Auto) 71% (31-73) Lymphocytes (%) (Auto) 18% (24-48) Monocytes (%) (Auto) 10% (0-9) Eosinophils (%) (Auto) 1% (0-3) Basophils (%) (Auto) 1% (0-3) Neutrophils # (Auto) 3.6x10^3uL (1.8-7.7) Lymphocytes # (Auto) 0.9x10^3/uL (1.0-4.8) Monocytes # (Auto) 0.5x10^3/uL (0.0-1.1) Eosinophils # (Auto) 0.0x10^3/uL (0.0-0.7) Basophils # (Auto) 0.0x10^3/uL (0.0-0.2) Sodium Level 141mmol/L (136-145) 144mmol/L (136-145) Potassium Level 4.1mmol/L (3.5-5.1) 4.0mmol/L (3.5-5.1) Chloride Level 104mmol/L (98-107) 105mmol/L (98-107) Carbon Dioxide Level 31mmol/L (21-32) 28mmol/L (21-32) Anion Gap 6 (6-14) 11 (6-14) Blood Urea Nitrogen 17mg/dL (8-26) 12mg/dL (8-26) Creatinine 0.9mg/dL (0.7-1.3) 0.8mg/dL (0.7-1.3) Estimated GFR (Cockcroft-Gault) 85.5 98.0 Glucose Level 146mg/dL (70-99) 83mg/dL (70-99) Calcium Level 9.0mg/dL (8.5-10.1) 8.9mg/dL (8.5-10.1) Laboratory Tests Test 03/15/17 04:20 Sodium Level 144mmol/L (136-145) Potassium Level 4.0mmol/L (3.5-5.1) Chloride Level 105mmol/L (98-107) Carbon Dioxide Level 28mmol/L (21-32) Anion Gap 11 (6-14) Blood Urea Nitrogen 12mg/dL (8-26) Creatinine 0.8mg/dL (0.7-1.3) Estimated GFR (Cockcroft-Gault) 98.0 Glucose Level 83mg/dL (70-99) Calcium Level 8.9mg/dL (8.5-10.1) Medications Active Scripts Medications Dose Route/Sig Days Date Category Dose Instructions Mucinex (Guaifenesin) 600 Mg Tablet.er 600 Mg PO BID 03/13/17 Reported Albuterol Sulfate Conc Neb Soln (Albuterol Sulfate) 2.5 Mg/0.5 Ml Vial.neb 1 Vial NEB Q4HRS 02/25/17 Reported Proair Hfa Inhaler (Albuterol Sulfate) 8.5 Gm Hfa.aer.ad 1 Puff INH PRN Q4HRS PRN 02/25/17 Reported Duoneb 0.5-3(2.5) Mg/3 Ml (Albuterol/Ipratropium) 3 Ml Ampul.neb 3 Ml NEB QID 02/25/17 Reported Ethambutol Hcl 400 Mg Tablet 800 Mg DAILY 10/22/16 Reported Rifampin 300 Mg Capsule 300 Mg BID 10/22/16 Reported Digoxin 250 Mcg Tablet 0.25 Mg DAILY 10/22/16 Reported Hold for heart rate less than 90 Escitalopram Oxalate 10 Mg Tablet 10 Mg DAILY 10/22/16 Reported Temazepam 15 Mg Capsule 1 Cap HS 10/22/16 Reported Impression . IMPRESSION: 1. Acute on chronic respiratory failure secondary to underlying Mycobacterium avium complex intracellulare infection along with pneumonia. 2. Suspect gram-negative and gram-positive pneumonia. 3. Increase in shortness of breath secondary to acute exacerbation of chronic obstructive pulmonary disease. 4. Malnutrition. Plan . PLAN: 1. Continue current MAC treatment and Zosyn. 2. antibiotics per Infectious Disease Service. 3. Titrate FiO2 down. 4. Nebulized treatments. 5. DVT prophylaxis. 6. add solumedrol 7. add ics discussed w rn, pt ELIJAH VARELA MD Mar 15, 2017 09:36
[2017-03-15] MEDS: ETHAMBUTOL HCL 400 MG TABLET PO SCH (11:10)
[2017-03-15 11:18] VITALS: BP 91/67
[2017-03-15] MEDS ORDERED: methylPREDNISolone SOD SUCC PF 40 MG/ML VIAL. IV ONE (11:30)
--- NOTE | 2017-03-15 12:59 | PDOC ---
Infectious Disease Note Subjective Subjective c/o increase work of breathing and productive cough Diminished appetite, ate breakfast though ROS ROS GEN: Denies fevers, chills, sweats HEENT: Denies sore throat CV: Denies chest pain GI: Denies n/v/d Vital Sign Vital Signs Vital Signs Date Time Temp Pulse Resp B/P Pulse Ox O2 Delivery O2 Flow Rate FiO2 03/15/17 11:18 97.9 80 18 91/67 96 Room Air 97.9 03/15/17 10:08 2.0 Physical Exam PHYSICAL EXAM GENERAL: Thin, lying down, NAD HEENT: PERRL, OC/OP pink and moist NECK: Supple LUNGS: Clear HEART: S1S2, no gallop, no murmur ABD: Soft, NT EXT: No edema, no cyanosis [employer] 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, 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, no focal neurologic deficit SKIN: No rash IV: ok Labs Lab Laboratory Tests Test 03/15/17 04:20 Sodium Level 144mmol/L (136-145) Potassium Level 4.0mmol/L (3.5-5.1) Chloride Level 105mmol/L (98-107) Carbon Dioxide Level 28mmol/L (21-32) Anion Gap 11 (6-14) Blood Urea Nitrogen 12mg/dL (8-26) Creatinine 0.8mg/dL (0.7-1.3) Estimated GFR (Cockcroft-Gault) 98.0 Glucose Level 83mg/dL (70-99) Calcium Level 8.9mg/dL (8.5-10.1) Micro BLOOD CULTURE Preliminary NO GROWTH AFTER 1 DAY Objective Assessment Pulmonary MAC Ethambutol d/c'd sec to noncompliance and risk for eye complications COPD exacerbation Malnutrition Plan Plan of Care Zosyn - wean soon MAC treatment: Azithromycin and rifampin. Ethambutol restarted by primary Monitor labs/ cultures Attending Co-Sign Attending Co-Sign The patient was seen and interviewed as well as examined at the bedside. The chart was reviewed. The case was discussed. Agree with the plan of care. MONICA ART APRN Mar 15, 2017 12:59 HANNA WRAY MD Mar 15, 2017 13:39
[2017-03-15] MEDS: methylPREDNISolone SOD SUCC PF 40 MG/ML VIAL. IV SCH ×2 (14:39→21:00)
[2017-03-15 15:00] VITALS: BP 101/67
[2017-03-15 19:00] VITALS: BP 95/61
[2017-03-15] MEDS: BUDESONIDE 0.5 MG/2 ML NEBU. NEB SCH (19:49)
[2017-03-15] MEDS ORDERED: GUAIFENESIN ER 600 MG TABLET.ER PO SCH (21:00)
[2017-03-15] MEDS: TEMAZEPAM 15 MG CAPSULE PO SCH (21:00)
[2017-03-15 23:00] VITALS: BP 98/63
--- NOTE | 2017-03-16 00:44 | PN ---
DATE: 03/15/2017 SUBJECTIVE: The patient is resting slightly propped up, continued to complain of severe chest tightness, cough, which is mostly dry and hacking. Denied any chest pain, chills, rigors or fever. PHYSICAL EXAMINATION: GENERAL: When I examined him, he was resting slightly propped up in bed, somewhat cachectic, but not jaundiced, cyanosed. No lymphadenopathy, no thyromegaly. No jugular venous distention. No lower limb edema. VITAL SIGNS: His heart rate was 69, blood pressure was 93/55, temperature was 97.7, respiratory rate 20, and oxygen saturation was 92% on room air. HEAD, EYES, EARS, NOSE, AND THROAT: Showed normocephalic, atraumatic. NECK: Supple. HEART: Showed normal first and second heart sounds. No gallop, rub, or murmur. CHEST: Showed central trachea, equally reduced expansion, reduced air entry. Diffused scattered rhonchi. I could not appreciate any crepitations. ABDOMEN: Scaphoid, soft, nontender. No guarding or rigidity. No organomegaly. Hernial orifices intact. Bowel sounds normal. NEUROLOGIC: He was awake, alert, responding appropriately. Cranial nerves intact. He moves extremities without difficulty, although he has marked muscle wasting and weakness. INTAKE AND OUTPUT: His intake over the last 24 hours was 1700, no output was recorded. LABORATORY DATA: His lab work as of this morning showed white cell count was 5000, hemoglobin 12, hematocrit 36, MCV 93, and platelet count 149,000. Serum sodium was 144, potassium 4, chloride 105, bicarbonate 28, anion gap of 11, BUN 12, creatinine 0.8, estimated GFR was 98 mL per minute. His glucose was 83, calcium was 8.9. ASSESSMENT: Chronic obstructive pulmonary disease exacerbation, Mycobacterium avium intracellular complex, for which he is on ethambutol and rifampicin. The Infectious Disease did not feel that the patient has pneumonia as he is afebrile and white cell count was normal. PLAN: Is to continue with steroids, continue with nebulized albuterol and Atrovent, and continue rifampin and ethambutol for his ____. I will add Mucinex 600 mg twice a day. We will follow him closely and decide on further management accordingly. MANI MCHUGH MD DR: Juan Ramon JOB#: [id number] / [id number]
[2017-03-16] MEDS: ALBUTEROL SULFATE 2.5 MG/3 ML NEBU. NEB PRN ×2 (03:41→18:15)
[2017-03-16 04:03] LABS: HEMATOCRIT 36.3 % (39.0-53.0); HEMOGLOBIN 11.7 g/dL (13.0-17.5); RED BLOOD COUNT 3.84 x10^6/uL (4.30-5.70); RED CELL DISTRIBUTION WIDTH 14.4 % (11.5-14.5); WHITE BLOOD COUNT 6.2 x10^3/uL (4.0-11.0)
[2017-03-16 04:14] LABS: CALCIUM 9.2 mg/dL (8.5-10.1); CREATININE 0.7 mg/dL (0.7-1.3); GFR 114.3; POTASSIUM 4.1 mmol/L (3.5-5.1)
[2017-03-16] MEDS: methylPREDNISolone SOD SUCC PF 40 MG/ML VIAL. IV SCH ×2 (05:40→20:43)
[2017-03-16] MEDS: PIPERACILLIN/TAZOBACTAM 4.5 GM in IV NORMAL SALINE 100ML 100 ML IV SCH ×4 (05:40→23:11)
--- NOTE | 2017-03-16 06:28 | PDOC ---
PULMONARY PROGRESS NOTES Subjective has sob cough, improved, no runny nose Vitals Vital Signs Date Time Temp Pulse Resp B/P Pulse Ox O2 Delivery O2 Flow Rate FiO2 03/16/17 03:42 95 Room Air 03/15/17 23:00 97.8 80 20 98/63 97.8 03/15/17 20:00 2.0 Comments ros as mentioned as above other sys otherwise neg ROS: No Nausea, No Chest Pain, No Abdominal Pain General: Alert, No acute distress HEENT: Other (nc at perrl nose throat clear) Lungs: Wheezing, Other (better air movement) Cardiovascular: S1, S2 Abdomen: Soft, Non-tender Neuro Exam: Alert Extremities: No Edema, Other Skin: Warm Labs Laboratory Tests Test 03/15/17 04:20 03/16/17 03:15 Sodium Level 144mmol/L (136-145) 143mmol/L (136-145) Potassium Level 4.0mmol/L (3.5-5.1) 4.1mmol/L (3.5-5.1) Chloride Level 105mmol/L (98-107) 104mmol/L (98-107) Carbon Dioxide Level 28mmol/L (21-32) 31mmol/L (21-32) Anion Gap 11 (6-14) 8 (6-14) Blood Urea Nitrogen 12mg/dL (8-26) 14mg/dL (8-26) Creatinine 0.8mg/dL (0.7-1.3) 0.7mg/dL (0.7-1.3) Estimated GFR (Cockcroft-Gault) 98.0 114.3 Glucose Level 83mg/dL (70-99) 100mg/dL (70-99) Calcium Level 8.9mg/dL (8.5-10.1) 9.2mg/dL (8.5-10.1) White Blood Count 6.2x10^3/uL (4.0-11.0) Red Blood Count 3.84x10^6/uL (4.30-5.70) Hemoglobin 11.7g/dL (13.0-17.5) Hematocrit 36.3% (39.0-53.0) Mean Corpuscular Volume 95fL (79-100) Mean Corpuscular Hemoglobin 31pg (25-35) Mean Corpuscular Hemoglobin Concent 32g/dL (31-37) Red Cell Distribution Width 14.4% (11.5-14.5) Platelet Count 275x10^3/uL (140-400) D-Dimer (Mesha) 0.31ug/mlFEU (0.00-0.50) Laboratory Tests Test 03/16/17 03:15 White Blood Count 6.2x10^3/uL (4.0-11.0) Red Blood Count 3.84x10^6/uL (4.30-5.70) Hemoglobin 11.7g/dL (13.0-17.5) Hematocrit 36.3% (39.0-53.0) Mean Corpuscular Volume 95fL (79-100) Mean Corpuscular Hemoglobin 31pg (25-35) Mean Corpuscular Hemoglobin Concent 32g/dL (31-37) Red Cell Distribution Width 14.4% (11.5-14.5) Platelet Count 275x10^3/uL (140-400) D-Dimer (Mesha) 0.31ug/mlFEU (0.00-0.50) Sodium Level 143mmol/L (136-145) Potassium Level 4.1mmol/L (3.5-5.1) Chloride Level 104mmol/L (98-107) Carbon Dioxide Level 31mmol/L (21-32) Anion Gap 8 (6-14) Blood Urea Nitrogen 14mg/dL (8-26) Creatinine 0.7mg/dL (0.7-1.3) Estimated GFR (Cockcroft-Gault) 114.3 Glucose Level 100mg/dL (70-99) Calcium Level 9.2mg/dL (8.5-10.1) Medications Active Scripts Medications Dose Route/Sig Days Date Category Dose Instructions Mucinex (Guaifenesin) 600 Mg Tablet.er 600 Mg PO BID 03/13/17 Reported Albuterol Sulfate Conc Neb Soln (Albuterol Sulfate) 2.5 Mg/0.5 Ml Vial.neb 1 Vial NEB Q4HRS 02/25/17 Reported Proair Hfa Inhaler (Albuterol Sulfate) 8.5 Gm Hfa.aer.ad 1 Puff INH PRN Q4HRS PRN 3/28/17 Reported Duoneb 0.5-3(2.5) Mg/3 Ml (Albuterol/Ipratropium) 3 Ml Ampul.neb 3 Ml NEB QID 02/25/17 Reported Ethambutol Hcl 400 Mg Tablet 800 Mg DAILY 10/22/16 Reported Rifampin 300 Mg Capsule 300 Mg BID 10/22/16 Reported Digoxin 250 Mcg Tablet 0.25 Mg DAILY 10/22/16 Reported Hold for heart rate less than 90 Escitalopram Oxalate 10 Mg Tablet 10 Mg DAILY 10/22/16 Reported Temazepam 15 Mg Capsule 1 Cap HS 10/22/16 Reported Impression . IMPRESSION: 1. Acute on chronic respiratory failure secondary to underlying Mycobacterium avium complex intracellulare infection along with pneumonia. 2. Suspect gram-negative and gram-positive pneumonia. 3. Increase in shortness of breath secondary to acute exacerbation of chronic obstructive pulmonary disease. 4. Malnutrition. Plan . PLAN: 1. Continue current MAC treatment and Zosyn. 2. antibiotics per Infectious Disease Service. 3. Titrate FiO2 down. 4. Nebulized treatments. 5. DVT prophylaxis. 6. change solumedrol to bid 7. ics discussed w rn, pt ELIJAH VARELA MD Mar 16, 2017 06:28
[2017-03-16 07:00] VITALS: BP 100/60
[2017-03-16] MEDS: BUDESONIDE 0.5 MG/2 ML NEBU. NEB SCH ×2 (07:06→20:15)
[2017-03-16] MEDS: IPRATRPIUM/ALBUTEROL 0.5/2.5MG 3 ML NEBU. NEB SCH ×4 (07:06→20:15)
[2017-03-16] MEDS: GUAIFENESIN ER 600 MG TABLET.ER PO SCH ×2 (08:04→20:42)
[2017-03-16] MEDS: ESCITALOPRAM 10 MG TABLET. PO SCH (08:05)
[2017-03-16] MEDS: ETHAMBUTOL HCL 400 MG TABLET PO SCH (08:05)
[2017-03-16] MEDS: riFAMpin 300 MG CAPSULE. PO SCH ×2 (08:06→20:42)
[2017-03-16] MEDS: AZITHROMYCIN 250 MG TABLET. PO SCH (08:06)
[2017-03-16] MEDS: DIGOXIN 250 MCG TABLET. PO SCH (08:07)
[2017-03-16 10:47] VITALS: BP 77/47
[2017-03-16 14:41] VITALS: BP 97/64
[2017-03-16 19:00] VITALS: BP 115/59
[2017-03-16] MEDS: TEMAZEPAM 15 MG CAPSULE PO SCH (20:47)
[2017-03-16 23:00] VITALS: BP 129/55
--- NOTE | 2017-03-17 00:35 | PN ---
DATE: 03/16/2017 SUBJECTIVE: The patient was resting slightly propped up, sleeping comfortably in no apparent distress, arousable. On questioning him, he stated that he is doing much better today. He has had no more chest tightness and breathing easier. PHYSICAL EXAMINATION: GENERAL: According to him when I examined him, he was actually lying almost flat in bed, pale, cachectic, not jaundiced, cyanosis, or thyromegaly. No jugular venous distension. No limb edema. VITAL SIGNS: His heart rate was 73, blood pressure was 100/60, temperature was 96.8, respiratory rate was 18 and oxygen saturation was 99% on room air. HEAD, EYES, EARS, NOSE AND THROAT: Showed normocephalic, atraumatic. NECK: Supple. HEART: Showed normal first and second heart sounds with no gallop, rub or murmur. CHEST: Clear to auscultation. No crepitation or rhonchi. ABDOMEN: Distended. Soft and nontender. No guarding or rigidity. No organomegaly. Hernial orifices intact. Bowel sounds normal. NEUROLOGIC: He was sleepy, but arousable. All cranial nerves intact. He moves extremities without difficulty. His intake and output are incompletely recorded. LABORATORY DATA: This morning showed that his white cell count 6200, hemoglobin 11.7, hematocrit 36, MCV 95 and platelet count 175,000. His chemistry showed a serum sodium 143, potassium 4.1, chloride 104, bicarbonate 31, anion gap of 8, BUN 14, creatinine 0.7, estimated GFR was ____. His glucose was 100. Calcium was 9.2. ASSESSMENT: [id number] respiratory failure secondary to underlying Mycobacterium complex intracellular infection along with pneumonia suspected gram negative, gram positive pneumonia, chronic obstructive pulmonary disease, malnutrition, cardiomyopathy. PLAN: To continue with the antimycobacterial treatment as well as Zosyn. Continue with steroids, nebulized treatment, DVT prophylaxis, will evaluate tomorrow and see if he stabilize and feeling generally better, we can discharge him back to ____ or any other [facility] of his choice. MANI MCHUGH MD DR: MIQUEL/veronica JOB#: [id number] / [id number]
[2017-03-17] MEDS: ALBUTEROL SULFATE 2.5 MG/3 ML NEBU. NEB PRN ×2 (03:36→22:17)
[2017-03-17] MEDS: PIPERACILLIN/TAZOBACTAM 4.5 GM in IV NORMAL SALINE 100ML 100 ML IV SCH ×4 (05:47→23:19)
[2017-03-17] MEDS: BUDESONIDE 0.5 MG/2 ML NEBU. NEB SCH (07:53)
[2017-03-17] MEDS: IPRATRPIUM/ALBUTEROL 0.5/2.5MG 3 ML NEBU. NEB SCH ×4 (07:53→19:04)
[2017-03-17 08:05] VITALS: BP 100/65
--- NOTE | 2017-03-17 09:16 | PDOC ---
Infectious Disease Note Subjective Subjective Better. Still occ SOA Eating better ROS ROS GEN: Denies fevers, chills, sweats HEENT: Denies blurred vision, sore throat CV: Denies chest pain RESP: Denies shortness of air, cough GI: Denies n/v/d NEURO: Denies confusion, dizziness MSK: Denies weakness, joint pain/swelling Vital Sign Vital Signs Vital Signs Date Time Temp Pulse Resp B/P Pulse Ox O2 Delivery O2 Flow Rate FiO2 03/17/17 07:54 94 Room Air 03/16/17 23:00 98.0 72 20 129/55 98.0 03/16/17 20:00 2.0 Physical Exam PHYSICAL EXAM GENERAL: NAD, Alert HEENT: PERRL, OC/OP -clear NECK: Supple, no JVD, no LN LUNGS: Trace wheeze on left HEART: S1S2, no gallop, no murmur ABD: Soft, NT, no organomegaly, no rebound EXT: No edema, no cyanosis SOCIAL SERVICES AIDE: Alert, 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, no focal neurologic deficit SKIN: No rash IV: ok Objective Assessment Pulmonary MAC Ethambutol d/c'd sec to noncompliance and risk for eye complications COPD exacerbation Malnutrition Plan Plan of Care Zosyn - wean soon MAC treatment: Azithromycin and rifampin. Ethambutol restarted by primary Consult optho - Dr. Saul Monitor labs/ cultures HANNA WRAY MD Mar 17, 2017 09:16
[2017-03-17] MEDS: AZITHROMYCIN 250 MG TABLET. PO SCH (09:51)
[2017-03-17] MEDS: GUAIFENESIN ER 600 MG TABLET.ER PO SCH ×2 (09:51→20:53)
[2017-03-17] MEDS: ESCITALOPRAM 10 MG TABLET. PO SCH (09:51)
[2017-03-17] MEDS: ETHAMBUTOL HCL 400 MG TABLET PO SCH (09:51)
[2017-03-17] MEDS: riFAMpin 300 MG CAPSULE. PO SCH ×2 (09:51→20:53)
[2017-03-17] MEDS: methylPREDNISolone SOD SUCC PF 40 MG/ML VIAL. IV SCH ×2 (09:52→20:53)
[2017-03-17] MEDS: DIGOXIN 250 MCG TABLET. PO SCH (09:52)
[2017-03-17 10:25] VITALS: BP 95/52
[2017-03-17 15:00] VITALS: BP 103/68
--- NOTE | 2017-03-17 18:35 | PDOC ---
PULMONARY PROGRESS NOTES Subjective pt still soa and coughing Vitals Vital Signs Date Time Temp Pulse Resp B/P Pulse Ox O2 Delivery O2 Flow Rate FiO2 03/17/17 15:50 94 Room Air 03/17/17 15:00 97.9 78 20 103/68 97.9 03/17/17 07:55 2.0 ROS: No Nausea, No Chest Pain, No Abdominal Pain General: Alert, No acute distress HEENT: Other (nc at perrl nose throat clear) Lungs: Wheezing Cardiovascular: S1, S2 Abdomen: Soft, Non-tender Neuro Exam: Alert Extremities: No Edema, Other Skin: Warm Labs Laboratory Tests Test 03/16/17 03:15 White Blood Count 6.2x10^3/uL (4.0-11.0) Red Blood Count 3.84x10^6/uL (4.30-5.70) Hemoglobin 11.7g/dL (13.0-17.5) Hematocrit 36.3% (39.0-53.0) Mean Corpuscular Volume 95fL (79-100) Mean Corpuscular Hemoglobin 31pg (25-35) Mean Corpuscular Hemoglobin Concent 32g/dL (31-37) Red Cell Distribution Width 14.4% (11.5-14.5) Platelet Count 275x10^3/uL (140-400) D-Dimer (Mesha) 0.31ug/mlFEU (0.00-0.50) Sodium Level 143mmol/L (136-145) Potassium Level 4.1mmol/L (3.5-5.1) Chloride Level 104mmol/L (98-107) Carbon Dioxide Level 31mmol/L (21-32) Anion Gap 8 (6-14) Blood Urea Nitrogen 14mg/dL (8-26) Creatinine 0.7mg/dL (0.7-1.3) Estimated GFR (Cockcroft-Gault) 114.3 Glucose Level 100mg/dL (70-99) Calcium Level 9.2mg/dL (8.5-10.1) Medications Active Scripts Medications Dose Route/Sig Days Date Category Dose Instructions Mucinex (Guaifenesin) 600 Mg Tablet.er 600 Mg PO BID 03/13/17 Reported Albuterol Sulfate Conc Neb Soln (Albuterol Sulfate) 2.5 Mg/0.5 Ml Vial.neb 1 Vial NEB Q4HRS 02/25/17 Reported Proair Hfa Inhaler (Albuterol Sulfate) 8.5 Gm Hfa.aer.ad 1 Puff INH PRN Q4HRS PRN 02/25/17 Reported Duoneb 0.5-3(2.5) Mg/3 Ml (Albuterol/Ipratropium) 3 Ml Ampul.neb 3 Ml NEB QID 02/25/17 Reported Ethambutol Hcl 400 Mg Tablet 800 Mg DAILY 10/22/16 Reported Rifampin 300 Mg Capsule 300 Mg BID 10/22/16 Reported Digoxin 250 Mcg Tablet 0.25 Mg DAILY 10/22/16 Reported Hold for heart rate less than 90 Escitalopram Oxalate 10 Mg Tablet 10 Mg DAILY 10/22/16 Reported Temazepam 15 Mg Capsule 1 Cap HS 10/22/16 Reported Impression . 1. Acute on chronic respiratory failure secondary to underlying Mycobacterium avium complex intracellulare infection along with pneumonia. 2. Suspect gram-negative and gram-positive pneumonia. 3. Increase in shortness of breath secondary to acute exacerbation of chronic obstructive pulmonary disease. 4. Malnutrition. Plan . Pt slowly improving antibx per ID Zosyn for pneumonia 1. Continue current MAC treatment 2. antibiotics per Infectious Disease Service. 3. Titrate FiO2 down. 4. Nebulized treatments. 5. DVT prophylaxis. 6. decrease steroids WARNER SAUNDERS MD Mar 17, 2017 18:35
[2017-03-17 19:00] VITALS: BP 104/67
[2017-03-17] MEDS: TEMAZEPAM 15 MG CAPSULE PO SCH (20:53)
[2017-03-17 23:00] VITALS: BP 90/50
--- NOTE | 2017-03-17 23:28 | PN ---
DATE: 03/17/2017 SUBJECTIVE: The patient is resting almost flat in bed in no apparent distress. Continued to complain of some chest tightness, but generally feeling much better. He is completing his sentences without difficulty, has been up out of bed to the bathroom and chair on his own using a walker. PHYSICAL EXAMINATION: GENERAL: When I examined him this morning, he was resting flat, comfortably in bed, in no apparent respiratory distress, slightly pale, but no jaundice, cyanosis, or thyromegaly. No jugular venous distention. No limb edema. VITAL SIGNS: His heart rate was 80, blood pressure was 100/65, temperature was 97.9, respiratory rate was 18 and oxygen saturation was 94%. HEAD, EYES, EARS, NOSE AND THROAT: Normocephalic, atraumatic. NECK: Supple. HEART: Showed normal first and second heart sounds with no gallop, rub or murmur. CHEST: Clear to auscultation. No crepitation or rhonchi. ABDOMEN: Distended, soft, nontender. No guarding or rigidity. No organomegaly. Hernial orifices intact. Bowel sounds normal. NEUROLOGIC: He was grossly intact. His intake over the last 24 hours was 480, output was 540. LABORATORY DATA: His lab work this morning showed a serum sodium of 143, potassium 4.1, chloride 104, bicarbonate 31, anion gap of 8, BUN 14, creatinine 0.7. White cell count was 6200, hemoglobin 12, hematocrit 36, MCV 95 and platelet count 275,000. ASSESSMENT: 1. Zvuvn-ti-chsvcem respiratory failure secondary to underlying Mycobacterium complex infection along with pneumonia. 2. Chronic obstructive pulmonary disease. 3. Cardiomyopathy. 4. Malnutrition. PLAN: Obviously to continue with anti-mycobacterium antibody in the form of rifampin and clarithromycin. I thought he was ____ the [facility] living ____ continue with tapering course of steroids, continue with Zosyn, continue with physical and occupational therapy. MANI MCHUGH MD DR: MIQUEL/veronica JOB#: [id number] / [id number]
[2017-03-18 03:00] VITALS: BP 96/50
[2017-03-18] MEDS: PIPERACILLIN/TAZOBACTAM 4.5 GM in IV NORMAL SALINE 100ML 100 ML IV SCH ×4 (05:35→23:31)
[2017-03-18 07:00] VITALS: BP 100/57
[2017-03-18] MEDS: IPRATRPIUM/ALBUTEROL 0.5/2.5MG 3 ML NEBU. NEB SCH ×4 (07:12→20:15)
[2017-03-18] MEDS: riFAMpin 300 MG CAPSULE. PO SCH ×2 (08:36→21:10)
[2017-03-18] MEDS: AZITHROMYCIN 250 MG TABLET. PO SCH (08:36)
[2017-03-18] MEDS: GUAIFENESIN ER 600 MG TABLET.ER PO SCH ×2 (08:36→21:11)
[2017-03-18] MEDS: DIGOXIN 250 MCG TABLET. PO SCH (08:36)
[2017-03-18] MEDS: ESCITALOPRAM 10 MG TABLET. PO SCH (08:36)
[2017-03-18] MEDS: ETHAMBUTOL HCL 400 MG TABLET PO SCH (08:36)
[2017-03-18] MEDS: methylPREDNISolone SOD SUCC PF 40 MG/ML VIAL. IV SCH (08:37)
--- NOTE | 2017-03-18 09:24 | PDOC ---
PULMONARY PROGRESS NOTES Subjective no soa/ less coughing Vitals Vital Signs Date Time Temp Pulse Resp B/P Pulse Ox O2 Delivery O2 Flow Rate FiO2 03/18/17 08:36 72 03/18/17 07:40 Room Air 03/18/17 07:13 91 03/18/17 07:00 97.9 18 100/57 97.9 03/17/17 19:00 2.0 ROS: No Nausea, No Chest Pain, No Abdominal Pain General: Alert, No acute distress HEENT: Other (nc at perrl nose throat clear) Lungs: Other (decrease bs) Cardiovascular: S1, S2 Abdomen: Soft, Non-tender Neuro Exam: Alert Extremities: No Edema, Other Skin: Warm Medications Active Scripts Medications Dose Route/Sig Days Date Category Dose Instructions Mucinex (Guaifenesin) 600 Mg Tablet.er 600 Mg PO BID 03/13/17 Reported Albuterol Sulfate Conc Neb Soln (Albuterol Sulfate) 2.5 Mg/0.5 Ml Vial.neb 1 Vial NEB Q4HRS 02/25/17 Reported Proair Hfa Inhaler (Albuterol Sulfate) 8.5 Gm Hfa.aer.ad 1 Puff INH PRN Q4HRS PRN 02/25/17 Reported Duoneb 0.5-3(2.5) Mg/3 Ml (Albuterol/Ipratropium) 3 Ml Ampul.neb 3 Ml NEB QID 02/25/17 Reported Ethambutol Hcl 400 Mg Tablet 800 Mg DAILY 10/22/16 Reported Rifampin 300 Mg Capsule 300 Mg BID 10/22/16 Reported Digoxin 250 Mcg Tablet 0.25 Mg DAILY 10/22/16 Reported Hold for heart rate less than 90 Escitalopram Oxalate 10 Mg Tablet 10 Mg DAILY 10/22/16 Reported Temazepam 15 Mg Capsule 1 Cap HS 10/22/16 Reported Impression . 1. Acute on chronic respiratory failure secondary to underlying Mycobacterium avium complex intracellulare infection along with suspected superimposed pneumonia. 2. Suspected gram-negative and gram-positive pneumonia. 3. Increase in shortness of breath secondary to acute exacerbation of chronic obstructive pulmonary disease. 4. Malnutrition. Plan . 1. Continue current MAC treatment 2. antibiotics per Infectious Disease Service. 3. Titrate FiO2 down. 4. Nebulized treatments. 5. DVT prophylaxis. 6. decrease steroids 7. rehab DONY ARCE MD Mar 18, 2017 09:24
--- NOTE | 2017-03-18 10:31 | PDOC ---
Infectious Disease Note Subjective Subjective Better. Still occ SOA and cough Eating better ROS ROS GEN: Denies fevers, chills, sweats HEENT: Denies blurred vision, sore throat CV: Denies chest pain RESP: Denies shortness of air, cough GI: Denies n/v/d NEURO: Denies confusion, dizziness MSK: Denies weakness, joint pain/swelling Vital Sign Vital Signs Vital Signs Date Time Temp Pulse Resp B/P Pulse Ox O2 Delivery O2 Flow Rate FiO2 03/18/17 08:36 72 03/18/17 08:34 Room Air 03/18/17 07:13 91 03/18/17 07:00 97.9 18 100/57 97.9 03/17/17 19:00 2.0 Physical Exam PHYSICAL EXAM GENERAL: NAD, Alert, thin HEENT: PERRL, OC/OP -clear NECK: Supple, no JVD, no LN LUNGS: Clear HEART: S1S2, no gallop, no murmur ABD: Soft, NT, no organomegaly, no rebound EXT: No edema, no cyanosis EVENT PROMOTIONS COORDINATOR: Alert, 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, no focal neurologic deficit SKIN: No rash IV: ok Objective Assessment Pulmonary MAC Ethambutol d/c'd sec to noncompliance and risk for eye complications COPD exacerbation Malnutrition Plan Plan of Care Zosyn - wean soon MAC treatment: Azithromycin and rifampin. Ethambutol restarted by primary Consult optho - Dr. Saul -pending Monitor labs/ cultures HANNA WRAY MD Mar 18, 2017 10:31
[2017-03-18 11:00] VITALS: BP 113/67
[2017-03-18 15:00] VITALS: BP 108/68
--- NOTE | 2017-03-18 16:43 | PDOC2 ---
CONSULT Date of Consult Date of Consult DATE: 03/18/17 TIME: 16:37 Reason for Consult Reason for Consult: S. 61 yrs White male, with chronic use of Ethambutol for MAC. He does not c/o any new eye problems, just little blurry. Glasses almost 10 yrs old. No eye exam for 10 years or more. O. EOM Full and normal OU Ext Low tear meniscus OU, no edema, no discharge OU Conj Clear and no discharge OU Cornea Clear and compact OU AC deep and quiet OU Pupil 3 mm round reacting equal no APD OU Lens mild nuclear sclerosis, and cortical cataract OU Fundus No gross pathology seen OU Color vision test WNL OU A. Mild cataract OU/ Dry eyes / Ethambutol Use P. Explained to pt about possible ethambutol toxicity and need for complete detailed exam with visual field test in my office when discharged from here. Thanking you, Sandra James MD Past Medical History Cardiovascular: Other Pulmonary: COPD CENTRAL NERVOUS SYSTEM: Other GI: No pertinent hx Heme/Onc: No pertinent hx Hepatobiliary: No pertinent hx Psych: No pertinent hx Musculoskeletal: No pain Rheumatologic: No pertinent hx Infectious disease: No pertinent hx Renal/: No pertinent hx Endocrine: No pertinent hx Past Surgical History Past Surgical History: No pertinent history Family History Family History: Cancer Social History Lives: Alone Current Problem List Problem List Problems Medical Problems: (1) COPD exacerbation Status: Acute (2) HCAP (healthcare-associated pneumonia) Status: Acute Current Medications Current Medications Current Medications Albuterol/ Ipratropium (Duoneb) 3 ml 1X ONCE NEB Last administered on 17:21; Start 03/13/17 at 17:30; Stop 03/13/17 at 17:31; Status DC Methylprednisolone Sodium Succinate 125 mg 125 mg 1X ONCE IV Last administered on 03/13/17 18:24; Start 03/13/17 at 17:30; Stop 03/13/17 at 17:31 ; Status DC Piperacillin Sod/ Tazobactam Sod/ Sodium Chloride (Zosyn/Iv Sodium Chloride 0.9 % 100ml) 100 ml @ 200 mls/hr Q6HRS IV Last administered on 03/18/17 12:01; Start 03/14/17 at 01:00 Vancomycin HCl (Vanco Per Pharmacy) 1 each PRN DAILY PRN MC SEE COMMENTS Last administered on 03/14/17 12:21; Start 03/13/17 at 18:00; Stop 03/14/17 at 12:32 ; Status DC Benzonatate 100 mg 100 mg 1X ONCE PO Last administered on 03/13/17 18:24; Start 03/13/17 at 18:15; Stop 03/13/17 at 18:16; Status DC Vancomycin HCl 1.25 gm/Sodium Chloride 250 ml @ 166.667 mls/hr 1X ONCE IV Last administered on 03/13/17 20:51; Start 03/13/17 at 19:00; Stop 03/13/17 at 20:29; Status DC Piperacillin Sod/ Tazobactam Sod/ Sodium Chloride (Zosyn/Iv Sodium Chloride 0.9 % 100ml) 100 ml @ 200 mls/hr 1X ONCE IV Last administered on 03/13/17 18:28 ; Start 03/13/17 at 18:15; Stop 03/13/17 at 18:44; Status DC Ondansetron HCl (Zofran) 4 mg PRN Q8HRS PRN IV NAUSEA/VOMITING; Start 03/13/17 at 19:00; Stop 03/14/17 at 18:59; Status DC Fentanyl Citrate (Fentanyl 2ml Vial) 50 mcg PRN Q2HR PRN IV PAIN; Start at 19:00; Stop 03/14/17 at 18:59; Status DC Acetaminophen (Tylenol) 650 mg PRN Q4HRS PRN PO FEVER; Start 03/13/17 at 19:00 ; Stop 03/14/17 at 18:59; Status DC Albuterol/ Ipratropium 3 ml 3 ml RTQID NEB Last administered on 03/14/17 11:13 ; Start 03/13/17 at 20:00; Stop 03/14/17 at 12:14; Status DC Piperacillin Sod/ Tazobactam Sod/ Sodium Chloride (Zosyn/Iv Sodium Chloride 0.9 % 100ml) 100 ml @ 200 mls/hr 1X ONCE IV Last administered on 03/13/17 20:19 ; Start 03/13/17 at 20:00; Stop 03/13/17 at 20:29; Status DC Vancomycin HCl 1 each 1 each 1X ONCE MC ; Start 03/15/17 at 08:30; Stop at 08:30; Status DC Vancomycin HCl/ Sodium Chloride (Iv Sodium Chloride 0.9% 250ml) 250 ml @ 250 mls/hr Q12H IV Last administered on 03/14/17 08:08; Start 03/14/17 at 09:00; Stop 03/14/17 at 12:35; Status DC Albuterol Sulfate (Ventolin Neb Soln) 2.5 mg PRN Q4HRS PRN NEB SHORTNESS OF BREATH Last administered on 03/13/17 23:52; Start 03/13/17 at 23:30; Stop 03/14 at 11:15; Status DC Guaifenesin (Mucinex) 600 mg BID PO Last administered on 03/18/17 08:36; Start 03/13/17 at 23:30 Temazepam (Restoril) 15 mg HS PO Last administered on 03/17/17 20:53; Start at 23:30 Digoxin (Lanoxin) 250 mcg DAILY PO Last administered on 03/18/17 08:36; Start 03/14/17 at 12:00 Escitalopram Oxalate (Lexapro) 10 mg DAILY PO Last administered on 03/18/17 08 :36; Start 03/14/17 at 12:00 Ethambutol HCl (Myambutol) 800 mg DAILY PO Last administered on 03/14/17 12:05 ; Start 03/14/17 at 12:00; Stop 03/14/17 at 12:47; Status DC Guaifenesin (Mucinex) 600 mg BID PO ; Start 03/14/17 at 12:00; Stop 03/14/17 at 12:14; Status DC Albuterol/ Ipratropium (Duoneb) 3 ml RTQID NEB Last administered on 03/18/17 15:47; Start 03/14/17 at 13:00 Rifampin (Rifadin) 300 mg BID PO Last administered on 03/18/17 08:36; Start at 12:00 Albuterol Sulfate (Ventolin Neb Soln) 2.5 mg Q4H NEB ; Start 03/14/17 at 11:30; Status Cancel Albuterol Sulfate (Ventolin Neb Soln) 2.5 mg PRN Q2HR PRN NEB SHORTNESS OF BREATH Last administered on 03/17/17 22:17; Start 03/14/17 at 10:45 Azithromycin (Zithromax) 250 mg DAILY PO Last administered on 03/18/17 08:36; Start 03/14/17 at 13:00 Methylprednisolone Sodium Succinate (Solu-Medrol 40mg Vial) 40 mg Q8HRS IV Last administered on 03/16/17 05:40; Start 03/15/17 at 14:00; Stop 03/16/17 at 06:28; Status DC Budesonide (Pulmicort) 0.5 mg RTBID NEB Last administered on 03/17/17 07:53; Start 03/15/17 at 20:00; Stop 03/17/17 at 18:35; Status DC Methylprednisolone Sodium Succinate (Solu-Medrol 40mg Vial) 40 mg 1X ONCE IV Last administered on 03/15/17 11:08; Start 03/15/17 at 11:30; Stop 03/15/17 at 11:31; Status DC Ethambutol HCl (Myambutol) 800 mg DAILY PO Last administered on 03/18/17 08:36 ; Start 03/15/17 at 11:30 Guaifenesin (Mucinex) 600 mg BID PO ; Start 03/15/17 at 21:00; Status UNV Methylprednisolone Sodium Succinate (Solu-Medrol 40mg Vial) 40 mg BID IV Last administered on 03/18/17 08:37; Start 03/16/17 at 21:00; Stop 03/18/17 at 09:25 ; Status DC Methylprednisolone Sodium Succinate (Solu-Medrol 40mg Vial) 40 mg QD IV ; Start 03/19/17 at 09:00 Active Scripts Active Reported Mucinex (Guaifenesin) 600 Mg Tablet.er 600 Mg PO BID Albuterol Sulfate Conc Neb Soln (Albuterol Sulfate) 2.5 Mg/0.5 Ml Vial.neb 1 Vial NEB Q4HRS Proair Hfa Inhaler (Albuterol Sulfate) 8.5 Gm Hfa.aer.ad 1 Puff INH PRN Q4HRS PRN Duoneb 0.5-3(2.5) Mg/3 Ml (Albuterol/Ipratropium) 3 Ml Ampul.neb 3 Ml NEB QID Ethambutol Hcl 400 Mg Tablet 800 Mg DAILY Rifampin 300 Mg Capsule 300 Mg BID Digoxin 250 Mcg Tablet 0.25 Mg DAILY Hold for heart rate less than 90 Escitalopram Oxalate 10 Mg Tablet 10 Mg DAILY Temazepam 15 Mg Capsule 1 Cap HS Allergies Allergies: Coded Allergies: No Known Drug Allergies (Unverified , 02/02/16) Vitals VITALS Vital Signs Date Time Temp Pulse Resp B/P Pulse Ox O2 Delivery O2 Flow Rate FiO2 03/18/17 15:48 94 Room Air 03/18/17 15:00 97.8 70 16 108/68 97.8 03/17/17 19:00 2.0 MESSI JAMES MD Mar 18, 2017 16:43
[2017-03-18 19:55] VITALS: BP 89/60
[2017-03-18] MEDS: TEMAZEPAM 15 MG CAPSULE PO SCH ×2 (21:10→23:31)
[2017-03-18] MEDS: ALBUTEROL SULFATE 2.5 MG/3 ML NEBU. NEB PRN (23:21)
[2017-03-18 23:40] VITALS: BP 112/62
--- NOTE | 2017-03-19 00:58 | PN ---
DATE: SUBJECTIVE: The patient is resting slightly propped up in bed, in no apparent distress. Continued to complain of shortness of breath, denied any cough, phlegm or hemoptysis, denies any chest pain. PHYSICAL EXAMINATION: GENERAL: When I examined him, he looked pale, no jaundice, cyanosis, or thyromegaly. No jugular venous distension. No edema. VITAL SIGNS: His heart rate was 69, blood pressure was 100/57, temperature was 97.9, respiratory rate was 18 and oxygen saturation was 97%. HEAD, EYES, EARS, NOSE AND THROAT: Showed normocephalic, atraumatic. NECK: Supple. HEART: Showed normal first and second heart sounds. No gallop, rub or murmur. CHEST: Shows central trachea, equally reduced expansion, reduced air entry, vesicular sounds, a very few scattered rhonchi, could not appreciate any crepitation. ABDOMEN: Distended, soft, and nontender. No guarding or rigidity. No organomegaly. Hernial orifice is intact. Bowel sounds normal. NEUROLOGIC: He is awake, alert, responding appropriately. Cranial nerves are intact. He moves extremities without difficulty. His intake was ____, output was 550. LABORATORY DATA: His white cell count was 6200, hemoglobin 11.7, hematocrit 36, MCV 95 and platelet count 275,000. Serum sodium was 143, potassium 4.1, chloride 104, bicarbonate 31, ____, BUN 14, and creatinine 0.7. Estimated GFR was 114 mL per minute. His glucose was 100. Calcium was 9.2. ASSESSMENT: 1. Jdwrl-ao-zvvlcel respiratory failure secondary to underlying Mycobacterium complex infection with pneumonia. 2. Chronic obstructive pulmonary disease. 3. Cardiomyopathy. 4. Malnutrition. PLAN: To continue with antimicrobial antibiotic. Continue with steroids and bronchodilator, await the evaluation by the water vessel captain. MANI MCHUGH MD DR: MIQUEL/veronica JOB#: [id number] / [id number]
[2017-03-19 03:55] VITALS: BP 84/53
[2017-03-19] MEDS: PIPERACILLIN/TAZOBACTAM 4.5 GM in IV NORMAL SALINE 100ML 100 ML IV SCH ×2 (05:11→12:00)
[2017-03-19 05:36] LABS: BASO # 0.1 x10^3/uL (0.0-0.2); BASO % 1 % (0-3); EOS % 8 % (0-3); HEMATOCRIT 37.5 % (39.0-53.0); HEMOGLOBIN 12.6 g/dL (13.0-17.5); LYMPH # 1.6 x10^3/uL (1.0-4.8); LYMPH % 22 % (24-48); MEAN CORPUSCULAR HEMOGLOBIN 31 pg (25-35); MEAN CORPUSCULAR HGB CONC 33 g/dL (31-37); MEAN CORPUSCULAR VOLUME 93 fL (79-100); MONO % 11 % (0-9); NEUT % 58 % (31-73); PLATELET COUNT 276 x10^3/uL (140-400); RED BLOOD COUNT 4.05 x10^6/uL (4.30-5.70); RED CELL DISTRIBUTION WIDTH 14.4 % (11.5-14.5)
[2017-03-19 06:00] LABS: ALBUMIN 2.8 g/dL (3.4-5.0); ALBUMIN/GLOBULIN RATIO 0.7 (1.0-1.7); CALCIUM 9.2 mg/dL (8.5-10.1); CREATININE 0.9 mg/dL (0.7-1.3); GFR 85.5; POTASSIUM 4.1 mmol/L (3.5-5.1); TOTAL BILIRUBIN 0.3 mg/dL (0.2-1.0)
[2017-03-19] MEDS: IPRATRPIUM/ALBUTEROL 0.5/2.5MG 3 ML NEBU. NEB SCH ×4 (06:37→18:17)
[2017-03-19 07:15] VITALS: BP 98/56
[2017-03-19] MEDS: ALBUTEROL SULFATE 2.5 MG/3 ML NEBU. NEB PRN ×2 (07:25→22:01)
[2017-03-19] MEDS: ETHAMBUTOL HCL 400 MG TABLET PO SCH (08:26)
[2017-03-19] MEDS: DIGOXIN 250 MCG TABLET. PO SCH (08:27)
[2017-03-19] MEDS: riFAMpin 300 MG CAPSULE. PO SCH ×2 (08:27→21:02)
[2017-03-19] MEDS: GUAIFENESIN ER 600 MG TABLET.ER PO SCH ×2 (08:27→21:02)
[2017-03-19] MEDS: ESCITALOPRAM 10 MG TABLET. PO SCH (08:27)
[2017-03-19] MEDS: AZITHROMYCIN 250 MG TABLET. PO SCH (08:27)
--- NOTE | 2017-03-19 08:49 | PDOC ---
PULMONARY PROGRESS NOTES Subjective no soa/ less coughing Vitals Vital Signs Date Time Temp Pulse Resp B/P Pulse Ox O2 Delivery O2 Flow Rate FiO2 03/19/17 08:27 66 98/56 03/19/17 07:26 96 Room Air 03/19/17 07:15 97.4 17 97.4 ROS: No Nausea, No Chest Pain, No Abdominal Pain General: Alert, No acute distress HEENT: Other (nc at perrl nose throat clear) Lungs: Other (decrease bs) Cardiovascular: S1, S2 Abdomen: Soft, Non-tender Neuro Exam: Alert Extremities: No Edema, Other Skin: Warm Labs Laboratory Tests Test 03/19/17 05:10 White Blood Count 7.0x10^3/uL (4.0-11.0) Red Blood Count 4.05x10^6/uL (4.30-5.70) Hemoglobin 12.6g/dL (13.0-17.5) Hematocrit 37.5% (39.0-53.0) Mean Corpuscular Volume 93fL (79-100) Mean Corpuscular Hemoglobin 31pg (25-35) Mean Corpuscular Hemoglobin Concent 33g/dL (31-37) Red Cell Distribution Width 14.4% (11.5-14.5) Platelet Count 276x10^3/uL (140-400) Neutrophils (%) (Auto) 58% (31-73) Lymphocytes (%) (Auto) 22% (24-48) Monocytes (%) (Auto) 11% (0-9) Eosinophils (%) (Auto) 8% (0-3) Basophils (%) (Auto) 1% (0-3) Neutrophils # (Auto) 4.1x10^3uL (1.8-7.7) Lymphocytes # (Auto) 1.6x10^3/uL (1.0-4.8) Monocytes # (Auto) 0.7x10^3/uL (0.0-1.1) Eosinophils # (Auto) 0.5x10^3/uL (0.0-0.7) Basophils # (Auto) 0.1x10^3/uL (0.0-0.2) Sodium Level 143mmol/L (136-145) Potassium Level 4.1mmol/L (3.5-5.1) Chloride Level 105mmol/L (98-107) Carbon Dioxide Level 31mmol/L (21-32) Anion Gap 7 (6-14) Blood Urea Nitrogen 18mg/dL (8-26) Creatinine 0.9mg/dL (0.7-1.3) Estimated GFR (Cockcroft-Gault) 85.5 BUN/Creatinine Ratio 20 (6-20) Glucose Level 88mg/dL (70-99) Calcium Level 9.2mg/dL (8.5-10.1) Total Bilirubin 0.3mg/dL (0.2-1.0) Aspartate Amino Transf (AST/SGOT) 26U/L (15-37) Alanine Aminotransferase (ALT/SGPT) 31U/L (16-63) Alkaline Phosphatase 33U/L (46-116) Total Protein 7.0g/dL (6.4-8.2) Albumin 2.8g/dL (3.4-5.0) Albumin/Globulin Ratio 0.7 (1.0-1.7) Laboratory Tests Test 03/19/17 05:10 White Blood Count 7.0x10^3/uL (4.0-11.0) Red Blood Count 4.05x10^6/uL (4.30-5.70) Hemoglobin 12.6g/dL (13.0-17.5) Hematocrit 37.5% (39.0-53.0) Mean Corpuscular Volume 93fL (79-100) Mean Corpuscular Hemoglobin 31pg (25-35) Mean Corpuscular Hemoglobin Concent 33g/dL (31-37) Red Cell Distribution Width 14.4% (11.5-14.5) Platelet Count 276x10^3/uL (140-400) Neutrophils (%) (Auto) 58% (31-73) Lymphocytes (%) (Auto) 22% (24-48) Monocytes (%) (Auto) 11% (0-9) Eosinophils (%) (Auto) 8% (0-3) Basophils (%) (Auto) 1% (0-3) Neutrophils # (Auto) 4.1x10^3uL (1.8-7.7) Lymphocytes # (Auto) 1.6x10^3/uL (1.0-4.8) Monocytes # (Auto) 0.7x10^3/uL (0.0-1.1) Eosinophils # (Auto) 0.5x10^3/uL (0.0-0.7) Basophils # (Auto) 0.1x10^3/uL (0.0-0.2) Sodium Level 143mmol/L (136-145) Potassium Level 4.1mmol/L (3.5-5.1) Chloride Level 105mmol/L (98-107) Carbon Dioxide Level 31mmol/L (21-32) Anion Gap 7 (6-14) Blood Urea Nitrogen 18mg/dL (8-26) Creatinine 0.9mg/dL (0.7-1.3) Estimated GFR (Cockcroft-Gault) 85.5 BUN/Creatinine Ratio 20 (6-20) Glucose Level 88mg/dL (70-99) Calcium Level 9.2mg/dL (8.5-10.1) Total Bilirubin 0.3mg/dL (0.2-1.0) Aspartate Amino Transf (AST/SGOT) 26U/L (15-37) Alanine Aminotransferase (ALT/SGPT) 31U/L (16-63) Alkaline Phosphatase 33U/L (46-116) Total Protein 7.0g/dL (6.4-8.2) Albumin 2.8g/dL (3.4-5.0) Albumin/Globulin Ratio 0.7 (1.0-1.7) Medications Active Scripts Medications Dose Route/Sig Days Date Category Dose Instructions Mucinex (Guaifenesin) 600 Mg Tablet.er 600 Mg PO BID 03/13/17 Reported Albuterol Sulfate Conc Neb Soln (Albuterol Sulfate) 2.5 Mg/0.5 Ml Vial.neb 1 Vial NEB Q4HRS 02/25/17 Reported Proair Hfa Inhaler (Albuterol Sulfate) 8.5 Gm Hfa.aer.ad 1 Puff INH PRN Q4HRS PRN 02/25/17 Reported Duoneb 0.5-3(2.5) Mg/3 Ml (Albuterol/Ipratropium) 3 Ml Ampul.neb 3 Ml NEB QID 02/25/17 Reported Ethambutol Hcl 400 Mg Tablet 800 Mg DAILY 10/22/16 Reported Rifampin 300 Mg Capsule 300 Mg BID 10/22/16 Reported Digoxin 250 Mcg Tablet 0.25 Mg DAILY 10/22/16 Reported Hold for heart rate less than 90 Escitalopram Oxalate 10 Mg Tablet 10 Mg DAILY 10/22/16 Reported Temazepam 15 Mg Capsule 1 Cap HS 10/22/16 Reported Impression . 1. Acute on chronic respiratory failure secondary to underlying Mycobacterium avium complex intracellulare infection along with suspected superimposed pneumonia. 2. Suspected gram-negative and gram-positive pneumonia. 3. Increase in shortness of breath secondary to acute exacerbation of chronic obstructive pulmonary disease. 4. Malnutrition. Plan . 1. Continue current MAC treatment 2. antibiotics per Infectious Disease Service. change to PO per ID 3. Titrate FiO2 down. 6 min walk when ready for dc 4. Nebulized treatments. 5. DVT prophylaxis. 6. decrease steroids 7. rehab DONY ARCE MD Mar 19, 2017 08:49
[2017-03-19] MEDS ORDERED: methylPREDNISolone SOD SUCC PF 40 MG/ML VIAL. IV SCH (09:00)
[2017-03-19 10:38] VITALS: BP 96/65
--- NOTE | 2017-03-19 12:24 | PDOC ---
Infectious Disease Note Subjective Subjective Better. Still occ SOA and cough Eating better ROS ROS GEN: Denies fevers, chills, sweats HEENT: Denies blurred vision, sore throat CV: Denies chest pain RESP: Denies shortness of air, cough GI: Denies n/v/d NEURO: Denies confusion, dizziness MSK: Denies weakness, joint pain/swelling Vital Sign Vital Signs Vital Signs Date Time Temp Pulse Resp B/P Pulse Ox O2 Delivery O2 Flow Rate FiO2 03/19/17 11:26 96 Room Air 03/19/17 10:38 97.7 88 19 96/65 97.7 Physical Exam PHYSICAL EXAM GENERAL: NAD, Alert, thin HEENT: PERRL, OC/OP -clear NECK: Supple, no JVD, no LN LUNGS: Clear HEART: S1S2, no gallop, no murmur ABD: Soft, NT, no organomegaly, no rebound EXT: No edema, no cyanosis 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, 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, no focal neurologic deficit SKIN: No rash IV: ok Labs Lab Laboratory Tests Test 03/19/17 05:10 White Blood Count 7.0x10^3/uL (4.0-11.0) Red Blood Count 4.05x10^6/uL (4.30-5.70) Hemoglobin 12.6g/dL (13.0-17.5) Hematocrit 37.5% (39.0-53.0) Mean Corpuscular Volume 93fL (79-100) Mean Corpuscular Hemoglobin 31pg (25-35) Mean Corpuscular Hemoglobin Concent 33g/dL (31-37) Red Cell Distribution Width 14.4% (11.5-14.5) Platelet Count 276x10^3/uL (140-400) Neutrophils (%) (Auto) 58% (31-73) Lymphocytes (%) (Auto) 22% (24-48) Monocytes (%) (Auto) 11% (0-9) Eosinophils (%) (Auto) 8% (0-3) Basophils (%) (Auto) 1% (0-3) Neutrophils # (Auto) 4.1x10^3uL (1.8-7.7) Lymphocytes # (Auto) 1.6x10^3/uL (1.0-4.8) Monocytes # (Auto) 0.7x10^3/uL (0.0-1.1) Eosinophils # (Auto) 0.5x10^3/uL (0.0-0.7) Basophils # (Auto) 0.1x10^3/uL (0.0-0.2) Sodium Level 143mmol/L (136-145) Potassium Level 4.1mmol/L (3.5-5.1) Chloride Level 105mmol/L (98-107) Carbon Dioxide Level 31mmol/L (21-32) Anion Gap 7 (6-14) Blood Urea Nitrogen 18mg/dL (8-26) Creatinine 0.9mg/dL (0.7-1.3) Estimated GFR (Cockcroft-Gault) 85.5 BUN/Creatinine Ratio 20 (6-20) Glucose Level 88mg/dL (70-99) Calcium Level 9.2mg/dL (8.5-10.1) Total Bilirubin 0.3mg/dL (0.2-1.0) Aspartate Amino Transf (AST/SGOT) 26U/L (15-37) Alanine Aminotransferase (ALT/SGPT) 31U/L (16-63) Alkaline Phosphatase 33U/L (46-116) Total Protein 7.0g/dL (6.4-8.2) Albumin 2.8g/dL (3.4-5.0) Albumin/Globulin Ratio 0.7 (1.0-1.7) Objective Assessment Pulmonary MAC on therapy/Appreciate Dr. Saul's eval COPD exacerbation Malnutrition Plan Plan of Care D/c Zosyn - wean soon begin Cefpodox for 5 day Cont MAC treatment: Azithromycin and rifampin. Ethambutol Needs Optho f/u as per Dr. Saul's note F/u ID office 4 weeks Ok to transfer HANNA WRAY MD Mar 19, 2017 12:23
[2017-03-19] MEDS: CEFPODOXIME PROXETIL 100 MG TABLET. PO SCH ×2 (12:32→21:02)
[2017-03-19 14:30] VITALS: BP 98/64
[2017-03-19 19:00] VITALS: BP 93/54
[2017-03-19] MEDS: TEMAZEPAM 15 MG CAPSULE PO SCH (21:02)
[2017-03-19 22:37] VITALS: BP 101/57
[2017-03-20 02:57] VITALS: BP 104/58
[2017-03-20 07:00] VITALS: BP_SYST 89; BP_SYST 92; BP_DIAS 56
[2017-03-20] MEDS: IPRATRPIUM/ALBUTEROL 0.5/2.5MG 3 ML NEBU. NEB SCH ×3 (07:43→15:33)
--- NOTE | 2017-03-20 08:16 | PN ---
DATE: 03/19/2017 SUBJECTIVE: The patient is sitting slightly propped up in bed, in no apparent distress. He is definitely much better. He is able to finish sentences and has been apparently up and about getting himself in a wheelchair and also walk all the way to the bathroom back and feeling generally much better, ready to go home. PHYSICAL EXAMINATION: GENERAL: When I examined him, he looked well and was clearly in no apparent respiratory distress. No jaundice, cyanosis, or thyromegaly. No jugular venous distention. No limb edema. VITAL SIGNS: His heart rate was 70, blood pressure was 98/64, temperature was 97.9, respiratory rate was 18, and oxygen saturation was 97%. The rest of clinical examination is unremarkable, has not really changed. LABORATORY DATA: His lab work remained stable with a white cell count 7000, hemoglobin 12.6, hematocrit 38, MCV 93, and platelet count of 276,000. His serum sodium was 143, potassium 4.2, chloride 105, bicarbonate 31, anion gap of 7, BUN 18, creatinine 0.9, estimated GFR was 85 mL per minute, his glucose 88, calcium was 8.2. Total bilirubin, AST, ALT, alkaline phosphatase were normal. Total protein was 7, albumin 3.8. 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 Saul has evaluated him and the patient can continue on ethambutol, chronic obstructive pulmonary disease exacerbation, malnutrition and cardiomyopathy. PLAN: The plan is to continue with azithromycin, ethambutol, and rifampicin. He obviously needs to follow up with the explosive ordnance handler as per Dr. Saul's note and follow with the ID office in 4 weeks' time. He would be discharged tomorrow . MANI MCHUGH MD DR: MIQUEL/veronica JOB#: [id number] / [id number]
--- NOTE | 2017-03-20 08:53 | PDOC ---
PULMONARY PROGRESS NOTES Subjective no soa/ less coughing Vitals Vital Signs Date Time Temp Pulse Resp B/P Pulse Ox O2 Delivery O2 Flow Rate FiO2 03/20/17 07:45 97 Room Air 03/20/17 02:57 98.1 78 16 104/58 98.1 03/19/17 20:00 2.0 ROS: No Nausea, No Chest Pain, No Abdominal Pain General: Alert, No acute distress HEENT: Other (nc at perrl nose throat clear) Lungs: Other (decrease bs) Cardiovascular: S1, S2 Abdomen: Soft, Non-tender Neuro Exam: Alert Extremities: No Edema, Other Skin: Warm Labs Laboratory Tests Test 03/19/17 05:10 White Blood Count 7.0x10^3/uL (4.0-11.0) Red Blood Count 4.05x10^6/uL (4.30-5.70) Hemoglobin 12.6g/dL (13.0-17.5) Hematocrit 37.5% (39.0-53.0) Mean Corpuscular Volume 93fL (79-100) Mean Corpuscular Hemoglobin 31pg (25-35) Mean Corpuscular Hemoglobin Concent 33g/dL (31-37) Red Cell Distribution Width 14.4% (11.5-14.5) Platelet Count 276x10^3/uL (140-400) Neutrophils (%) (Auto) 58% (31-73) Lymphocytes (%) (Auto) 22% (24-48) Monocytes (%) (Auto) 11% (0-9) Eosinophils (%) (Auto) 8% (0-3) Basophils (%) (Auto) 1% (0-3) Neutrophils # (Auto) 4.1x10^3uL (1.8-7.7) Lymphocytes # (Auto) 1.6x10^3/uL (1.0-4.8) Monocytes # (Auto) 0.7x10^3/uL (0.0-1.1) Eosinophils # (Auto) 0.5x10^3/uL (0.0-0.7) Basophils # (Auto) 0.1x10^3/uL (0.0-0.2) Sodium Level 143mmol/L (136-145) Potassium Level 4.1mmol/L (3.5-5.1) Chloride Level 105mmol/L (98-107) Carbon Dioxide Level 31mmol/L (21-32) Anion Gap 7 (6-14) Blood Urea Nitrogen 18mg/dL (8-26) Creatinine 0.9mg/dL (0.7-1.3) Estimated GFR (Cockcroft-Gault) 85.5 BUN/Creatinine Ratio 20 (6-20) Glucose Level 88mg/dL (70-99) Calcium Level 9.2mg/dL (8.5-10.1) Total Bilirubin 0.3mg/dL (0.2-1.0) Aspartate Amino Transf (AST/SGOT) 26U/L (15-37) Alanine Aminotransferase (ALT/SGPT) 31U/L (16-63) Alkaline Phosphatase 33U/L (46-116) Total Protein 7.0g/dL (6.4-8.2) Albumin 2.8g/dL (3.4-5.0) Albumin/Globulin Ratio 0.7 (1.0-1.7) Medications Active Scripts Medications Dose Route/Sig Days Date Category Dose Instructions Mucinex (Guaifenesin) 600 Mg Tablet.er 600 Mg PO BID 03/13/17 Reported Albuterol Sulfate Conc Neb Soln (Albuterol Sulfate) 2.5 Mg/0.5 Ml Vial.neb 1 Vial NEB Q4HRS 02/25/17 Reported Proair Hfa Inhaler (Albuterol Sulfate) 8.5 Gm Hfa.aer.ad 1 Puff INH PRN Q4HRS PRN 02/25/17 Reported Duoneb 0.5-3(2.5) Mg/3 Ml (Albuterol/Ipratropium) 3 Ml Ampul.neb 3 Ml NEB QID 02/25/17 Reported Ethambutol Hcl 400 Mg Tablet 800 Mg DAILY 10/22/16 Reported Rifampin 300 Mg Capsule 300 Mg BID 10/22/16 Reported Digoxin 250 Mcg Tablet 0.25 Mg DAILY 10/22/16 Reported Hold for heart rate less than 90 Escitalopram Oxalate 10 Mg Tablet 10 Mg DAILY 10/22/16 Reported Temazepam 15 Mg Capsule 1 Cap HS 10/22/16 Reported Impression . 1. Acute on chronic respiratory failure secondary to underlying Mycobacterium avium complex intracellulare infection along with suspected superimposed pneumonia. 2. Suspected gram-negative and gram-positive pneumonia. 3. Increase in shortness of breath secondary to acute exacerbation of chronic obstructive pulmonary disease. 4. Malnutrition. Plan . 1. Continue current MAC treatment 2. antibiotics per Infectious Disease Service. PO per ID 3. Titrate FiO2 down. 6 min walk today 4. Nebulized treatments. 5. DVT prophylaxis. 6. change to PO steroids 7. rehab today DONY ARCE MD Mar 20, 2017 08:53
[2017-03-20] MEDS: CEFPODOXIME PROXETIL 100 MG TABLET. PO SCH (09:08)
[2017-03-20] MEDS: ESCITALOPRAM 10 MG TABLET. PO SCH (09:08)
[2017-03-20] MEDS: ETHAMBUTOL HCL 400 MG TABLET PO SCH (09:08)
[2017-03-20] MEDS: AZITHROMYCIN 250 MG TABLET. PO SCH (09:08)
[2017-03-20] MEDS: DIGOXIN 250 MCG TABLET. PO SCH (09:09)
[2017-03-20] MEDS: GUAIFENESIN ER 600 MG TABLET.ER PO SCH (09:09)
[2017-03-20] MEDS: riFAMpin 300 MG CAPSULE. PO SCH (09:10)
[2017-03-20] MEDS ORDERED: PREDNISONE 20 MG TABLET PO SCH (09:30)
[2017-03-20 11:00] VITALS: BP 96/60
--- NOTE | 2017-03-20 12:08 | PDOC ---
Infectious Disease Note Subjective Subjective Better Less SOA and cough Eating better ROS ROS GEN: Denies fevers, chills, sweats HEENT: Denies blurred vision, sore throat CV: Denies chest pain RESP: Denies shortness of air, cough GI: Denies n/v/d NEURO: Denies confusion, dizziness MSK: Denies weakness, joint pain/swelling Vital Sign Vital Signs Vital Signs Date Time Temp Pulse Resp B/P Pulse Ox O2 Delivery O2 Flow Rate FiO2 03/20/17 11:59 99 Room Air 03/20/17 09:09 78 03/20/17 07:00 97.6 20 89/56 97.6 03/19/17 20:00 2.0 Physical Exam PHYSICAL EXAM GENERAL: NAD, Alert HEENT: PERRL, OC/OP - clear NECK: Supple, no JVD, no LN LUNGS: improved air movement HEART: S1S2, no gallop, no murmur ABD: Soft, NT, no organomegaly, no rebound EXT: No edema, no cyanosis [employer]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 Saul's eval COPD exacerbation Malnutrition Plan Plan of Care Cont Cefpodox for 5 day Cont MAC treatment: Azithromycin and rifampin. Ethambutol Needs Optho f/u as per Dr. Saul's note F/u ID office 4 weeks Ok to transfer HANNA WRAY MD Mar 20, 2017 12:08
--- NOTE | 2017-03-21 00:26 | DS ---
DATE OF DISCHARGE: 03/20/2017 HOSPITAL COURSE: The patient is a 61-year-old male patient who was admitted from [facility] with COPD exacerbation. He was admitted with possible healthcare-associated pneumonia together with Mycobacterium avium complex infection for which he was already on treatment with rifampin, ethambutol, and Zithromax. Initially, he was extremely short of breath and marked chest tightness, for which he was seen by the hospital manager and started on IV Solu-Medrol together with bronchodilator and initially started him on IV Zosyn, vancomycin and Levaquin. Levaquin and vancomycin were discontinued. The patient continued on Zosyn. He did actually very well. He has been up and about. He was able to finish a sentence and has been able to walk with a walker, although he prefers to ____ in a wheelchair and as he remained stable, he was seen by ____ to make sure that he ____ and the hospital manager, Infectious Disease and the records management associate all okayed with the discharge to [place] and for him to follow with these subspecialties on a regular basis. PHYSICAL EXAMINATION: GENERAL: When I examined today, he looked well and was clearly in no apparent respiratory distress, slightly pale, but no jaundice, cyanosis or thyromegaly. No jugular venous distention, no limb edema. VITAL SIGNS: His heart rate was 69, blood pressure was 89/66, temperature was 97.6, respiratory rate was 20, and oxygen saturation was 93%, in fact he can also go up from 93-97% on room air. HEAD, EYES, EARS, NOSE AND THROAT: Normocephalic, atraumatic. NECK: Supple. CARDIOVASCULAR: Heart showed the first and second heart sounds with no gallop, rub or murmur. CHEST: Central trachea, equally reduced expansion, reduced air entry, vesicular sounds. I could not appreciate any crepitation or rhonchi. ABDOMEN: Scaphoid, soft, nontender. NEUROLOGIC: He is awake, alert, responding appropriately. Cranial nerves intact. EXTREMITIES: He moves all extremities without difficulty. He ambulates with a walker. LABORATORY DATA: Showed a white cell count 7000, hemoglobin 12.6, hematocrit 37.5, MCV 93, and platelet count of 276,000. His chemistry showed a serum sodium 143, potassium 4.1, chloride 105, bicarbonate 31, anion gap of 7, BUN 18, creatinine 0.9, estimated GFR was 86 mL per minute, his glucose was 88. Calcium was 9.2. Total bilirubin, AST, ALT, alkaline phosphatase were normal. Total protein was 7, albumin was 2.3. DISCHARGE DISPOSITION: The patient will be discharged to [facility]. DISCHARGE MEDICATIONS: Continue on following medication: Zithromax 250 mg daily, albuterol sulfate 2 puffs every 4-6 hours, albuterol sulfate via nebulizer every 4 hours, digoxin 250 mcg once a day, escitalopram oxalate 10 mg once a day, ethambutol 800 mg daily, guaifenesin or Mucinex 600 mg twice a day, ipratropium bromide, albuterol inhaler, DuoNeb 0.5-2.5 mg 3 mL by nebulizer every 4 hours, rifampin 300 mg once a day, temazepam 15 mg at bedtime. FINAL DISCHARGE DIAGNOSES: Chronic obstructive pulmonary disease exacerbation, pulmonary mycobacterium avium complex, malnutrition, cardiomyopathy, and depression. MANI MCHUGH MD DR: MIQUEL/veronica JOB#: [id number] / [id number]
[2017-03-22] MEDS ORDERED: PREDNISONE 20 MG TABLET PO SCH (09:00)
[2017-03-24] MEDS ORDERED: PREDNISONE 10 MG TABLET PO SCH (09:00)
== END 2017-03-20 17:50 | DRG 177 ==
LOC: ER 17:03 → 1 WEST ICU 17:57 → UNDOADMIN 17:57 → 5 NORTH 18:02
PROVIDERS: ADMIT Internal Medicine; ATTEND Internal Medicine
DX: A31.0 Pulmonary mycobacterial infection (principal); J96.21 Acute and chronic respiratory failure with hypoxia; J44.0 Chronic obstructive pulmonary disease with (acute) lower respiratory infection; J44.1 Chronic obstructive pulmonary disease with (acute) exacerbation; I42.9 Cardiomyopathy, unspecified; Z68.1 Body mass index [BMI] 19.9 or less, adult; E46 Unspecified protein-calorie malnutrition; F32.9 Major depressive disorder, single episode, unspecified; J18.9 Pneumonia, unspecified organism; Z91.19 Patient's noncompliance with other medical treatment and regimen; Z79.899 Other long term (current) drug therapy; Y95 Nosocomial condition
CPT/HCPCS: 36415; 36600; 71010; 80048; 80053; 82805; 83605; 83880; 84484; 85027; 85379; 87040; 87641; 87804; 93005; 94250; 94620; 94640; 96365; 96366; 96375; J2543; J2920; J2930; J3370; J7050; J7512; J7620; Q0144; 97110; 97530; 99285-25; J7030

== ENCOUNTER 2017-03-26 10:48 | Emergency (ER) | payer OTHER ==
[~2017-03-26] VITALS: Ht 172.7 cm; Wt 49.0 kg
[~2017-03-26 10:48] MED LIST changes: +GUAI600T38 PO
--- NOTE | 2017-03-26 10:54 | PHYS DOC ---
Past Medical History Past Medical History: COPD, Pneumonia Additional Past Medical Histor: CARDIOMYOPATHY, MAC Past Surgical History: Other Additional Past Surgical Histo: bronchoscopy Alcohol Use: None Drug Use: None, Cocaine Adult General Chief Complaint Chief Complaint: SHORTNESS OF BREATH HPI HPI 61-year-old male who states he is having significant shortness of air and has history of COPD that has worsened over the last several months. Patient was briefly seen several weeks ago and ultimately sent home. He states he has been using his nebulizer treatments at home without relief. Upon EMS arrival, the patient was saturating in the low 90s and after a breathing treatment by EMS he saturates near 90% on room air. Upon arrival, he does not appear to be in any severe distress although he claims that he is symptomatically short of air. He is saturating 97% on room air. He denies any pain. He does have slight cough for the last 2 days that is productive for yellowish type sputum. Review of Systems Review of Systems Constitutional: Denies fever or chills [] Eyes: Denies change in visual acuity, redness, or eye pain [] HENT: Denies nasal congestion or sore throat [] Respiratory: Has cough, has shortness of breath [] Cardiovascular: No additional information not addressed in HPI [] GI: Denies abdominal pain, nausea, vomiting, bloody stools or diarrhea [] : Denies dysuria or hematuria [] Musculoskeletal: Denies back pain or joint pain [] Integument: Denies rash or skin lesions [] Neurologic: Denies headache, focal weakness or sensory changes [] Endocrine: Denies polyuria or polydipsia [] Current Medications Current Medications Current Medications Medications (Trade) Dose Ordered Sig/Ken Start Time Stop Time Status Last Admin Dose Admin Albuterol/ Ipratropium (Duoneb) 3 ml 1X ONCE 03/26/17 11:00 03/26/17 11:01 DC 03/26/17 11:08 3 ML Lorazepam (Ativan) 0.5 mg 1X ONCE 03/26/17 12:00 03/26/17 12:01 DC 03/26/17 12:11 0.5 MG Methylprednisolone Sodium Succinate (Solu-Medrol 125mg Vial) 125 mg 1X ONCE 03/26/17 11:00 03/26/17 11:13 DC Prednisone (Prednisone) 50 mg 1X ONCE 03/26/17 11:15 03/26/17 11:16 DC 03/26/17 11:35 50 MG Allergies Allergies Allergies Coded Allergies Type Severity Reaction Last Updated Verified No Known Drug Allergies 02/02/16 No Physical Exam Physical Exam Constitutional: Well developed, well nourished, no acute distress, non-toxic appearance. [] HENT: Normocephalic, atraumatic, bilateral external ears normal, oropharynx moist, no oral exudates, nose normal. [] Eyes: PERRLA, EOMI, conjunctiva normal, no discharge. [] Neck: Normal range of motion, no tenderness, supple, no stridor. [] Cardiovascular:Heart rate regular rhythm, no murmur [] Lungs & Thorax: Bilateral breath sounds clear to auscultation [] Abdomen: Bowel sounds normal, soft, no tenderness, no masses, no pulsatile masses. [] Skin: Warm, dry, no erythema, no rash. [] Back: No tenderness, no CVA tenderness. [] Extremities: No tenderness, no cyanosis, no clubbing, ROM intact, no edema. [] Neurologic: Alert and oriented X 3, normal motor function, normal sensory function, no focal deficits noted. [] Psychologic: Affect normal, judgement normal, mood normal. [] Current Patient Data Vital Signs Vital Signs Date Time Temp Pulse Resp B/P Pulse Ox O2 Delivery O2 Flow Rate FiO2 03/26/17 12:00 78 20 97/64 96 Room Air 03/26/17 10:48 98.6 98.6 Lab Values Laboratory Tests Test 03/26/17 11:30 White Blood Count 6.1x10^3/uL (4.0-11.0) Red Blood Count 4.43x10^6/uL (4.30-5.70) Hemoglobin 14.1g/dL (13.0-17.5) Hematocrit 41.6% (39.0-53.0) Mean Corpuscular Volume 94fL (79-100) Mean Corpuscular Hemoglobin 32pg (25-35) Mean Corpuscular Hemoglobin Concent 34g/dL (31-37) Red Cell Distribution Width 14.9% (11.5-14.5) H Platelet Count 288x10^3/uL (140-400) Neutrophils (%) (Auto) 69% (31-73) Lymphocytes (%) (Auto) 15% (24-48) L Monocytes (%) (Auto) 10% (0-9) H Eosinophils (%) (Auto) 5% (0-3) H Basophils (%) (Auto) 1% (0-3) Neutrophils # (Auto) 4.2x10^3uL (1.8-7.7) Lymphocytes # (Auto) 0.9x10^3/uL (1.0-4.8) L Monocytes # (Auto) 0.6x10^3/uL (0.0-1.1) Eosinophils # (Auto) 0.3x10^3/uL (0.0-0.7) Basophils # (Auto) 0.0x10^3/uL (0.0-0.2) Sodium Level 139mmol/L (136-145) Potassium Level 3.6mmol/L (3.5-5.1) Chloride Level 101mmol/L (98-107) Carbon Dioxide Level 32mmol/L (21-32) Anion Gap 6 (6-14) Blood Urea Nitrogen 16mg/dL (8-26) Creatinine 0.8mg/dL (0.7-1.3) Estimated GFR (Cockcroft-Gault) 98.0 Glucose Level 102mg/dL (70-99) H Calcium Level 9.7mg/dL (8.5-10.1) Troponin I Quantitative < 0.017ng/mL (0.000-0.055) Laboratory Tests 03/26/17 11:30 Laboratory Tests 03/26/17 11:30 EKG EKG EKG as interpreted by me shows a sinus rhythm with a rate of 75 beats per minute. There are no obvious ischemic findings. Intervals are normal. There is no ectopy. Radiology/Procedures Radiology/Procedures One view of the chest as interpreted by me and the radiologist demonstrates extensive left pleural opacity his with volume loss was compatible with scarring there is no significant change on this chest x-ray as compared to 1 obtained on 03/13/2017. Course & Med Decision Making Course & Med Decision Making Pertinent Labs and Imaging studies reviewed. (See chart for details) This 61-year-old male with history of COPD as well as a cough for the last several days has a room air saturation of near 100%. Patient is symptomatically short of air but I do not see an indication of admitting her to the hospital at this time. A DuoNeb was given. By mouth prednisone as well was given. His chest x-ray shows some chronic parenchymal changes but no acute abnormality. He was observed in the department for several hours. Upon my final reassessment , patient feels significant better and is saturating 98% on room air in no distress. He is comfortable going home with a course of steroids. He states he does have solution for his nebulizer at home and I counseled him to continue using that as needed. Follow closely with his primary care doctor in next 2 days. Return precautions were provided and acknowledged by the patient. Dragon Disclaimer Dragon Disclaimer This electronic medical record was generated, in whole or in part, using a voice recognition dictation system. Departure Departure Impression: Primary Impression: COPD (chronic obstructive pulmonary disease) Additional Impression: Cough Disposition: HOME, SELF-CARE Admitting Physician: Other Condition: STABLE Referrals: DEOBRAH PICKENS MD (PCP) Patient Instructions: Chronic Obstructive Pulmonary Disease, [id number], Cough, Adult, [id number] Additional Instructions: Please follow up with your primary doctor in the next 2 days for your cough and COPD symptoms. Continue using your nebulizer at home as prescribed. Take your steroids as prescribed. Take tessalon perles as needed for your symptoms. Return to the ER if you develop any worsening of your symptoms. Scripts Benzonatate (Tessalon Perle)100 Mg [id number] Mg PO TID PRN COUGH #15 CAP Prov:SLIM HAWLEY DO 03/26/17 Azithromycin (Zithromax)250 Mg Tablet1 Pkg PO UD #6 TAB Prov:SLIM HAWLEY DO 03/26/17 Prednisone 50 Mg Tablet1 Tab PO DAILY #4 TAB Prov:SLIM HAWLEY DO 03/26/17 Problem Qualifiers SLIM HAWLEY DO Mar 26, 2017 10:54
[2017-03-26] MEDS ORDERED: methylPREDNISolone SOD SUCC PF 125 MG/2 ML VIAL. IV ONE (11:00)
[2017-03-26] MEDS ORDERED: IPRATRPIUM/ALBUTEROL 0.5/2.5MG 3 ML NEBU. NEB ONE (11:00)
[2017-03-26] MEDS ORDERED: predniSONE 10 MG TABLET PO ONE (11:15)
--- NOTE | 2017-03-26 11:15 | RAD ---
Portable chest, 03/26/2017: History: Shortness of breath and cough Comparison is made to a study from 03/13/2017. The heart size is normal. There is pleural thickening with moderate streaky parenchymal opacities and volume loss in the left chest, unchanged. There is a lesser degree of parenchymal scarring in the right lung. No new pulmonary abnormality is seen. No definite pleural fluid or pneumothorax is evident. IMPRESSION: 1. Extensive left pleural-parenchymal opacities with volume loss most compatible with scarring. A component of chronic pneumonitis cannot be excluded. 2. No significant change since 03/13/2017.
[2017-03-26 11:35] LABS: BASO % 1 % (0-3); EOS % 5 % (0-3); HEMATOCRIT 41.6 % (39.0-53.0); HEMOGLOBIN 14.1 g/dL (13.0-17.5); LYMPH # 0.9 x10^3/uL (1.0-4.8); LYMPH % 15 % (24-48); MEAN CORPUSCULAR HEMOGLOBIN 32 pg (25-35); MEAN CORPUSCULAR HGB CONC 34 g/dL (31-37); MEAN CORPUSCULAR VOLUME 94 fL (79-100); MONO % 10 % (0-9); NEUT % 69 % (31-73); PLATELET COUNT 288 x10^3/uL (140-400); RED BLOOD COUNT 4.43 x10^6/uL (4.30-5.70); RED CELL DISTRIBUTION WIDTH 14.9 % (11.5-14.5); WHITE BLOOD COUNT 6.1 x10^3/uL (4.0-11.0)
[2017-03-26 11:53] LABS: CALCIUM 9.7 mg/dL (8.5-10.1); CREATININE 0.8 mg/dL (0.7-1.3); POTASSIUM 3.6 mmol/L (3.5-5.1)
[2017-03-26] MEDS ORDERED: LORAZEPAM 1 MG TABLET. PO ONE (12:00)
[2017-03-26 13:00] VITALS: BP 110/60
[2017-03-26] MEDS ORDERED: BENZ100C PO (13:23)
[2017-03-26] MEDS ORDERED: PRED50TA PO (13:23)
[2017-03-26] MEDS ORDERED: AZIT250T PO (13:23)
--- NOTE | 2017-03-26 14:46 | EKG ---
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
== END 2017-03-26 14:30 | disposition home or self-care (01) ==
LOC: ER 10:48
DX: J44.9 Chronic obstructive pulmonary disease, unspecified (principal)
CPT/HCPCS: 36415; 71010; 80048; 84484; 85027; 93005; 94640; 99285; J7512; J7620

== ENCOUNTER 2017-03-31 14:51 | Inpatient (IN) | payer OTHER ==
[~2017-03-31] VITALS: Ht 172.7 cm; Wt 49.5 kg
[~2017-03-31 14:51] MED LIST changes: +AZIT250T PO; +BENZ100C PO; +PRED50TA PO
[2017-03-31 15:32] LABS: BASO # 0.1 x10^3/uL (0.0-0.2); BASO % 1 % (0-3); EOS % 6 % (0-3); HEMOGLOBIN 13.5 g/dL (13.0-17.5); LYMPH % 15 % (24-48); MEAN CORPUSCULAR HEMOGLOBIN 32 pg (25-35); MEAN CORPUSCULAR HGB CONC 34 g/dL (31-37); MEAN CORPUSCULAR VOLUME 95 fL (79-100); MONO % 12 % (0-9); NEUT % 67 % (31-73); PLATELET COUNT 272 x10^3/uL (140-400); RED BLOOD COUNT 4.19 x10^6/uL (4.30-5.70); WHITE BLOOD COUNT 6.7 x10^3/uL (4.0-11.0)
--- NOTE | 2017-03-31 15:40 | ED.ADGEN ---
Past Medical History Past Medical History: COPD, Pneumonia Additional Past Medical Histor: CARDIOMYOPATHY, MAC Past Surgical History: Other Additional Past Surgical Histo: bronchoscopy Alcohol Use: Occasionally Drug Use: Cocaine Adult General Chief Complaint Chief Complaint: SHORTNESS OF BREATH HPI HPI Patient is a 62 year old and, history of COPD, cardiomyopathy, who is being treated for an before meals, with history of pneumonia or she is treated a month ago, who presents emergency department with multiple complaints. Patient states that he was visiting family today, when he came home he became dizzy, lightheaded, and increasing shortness of breath. Patient states that he was able to ambulate to his toilet, then fell onto the toilet, and was unable to get up due to "feeling weak in my legs". He also states that he felt as though the room was spinning around him, denies any weakness in his upper extremity, or any numbness or tingling, denies any injuries, denies strike his head or neck , did not lose consciousness. He denies any chest pain, but complains of chest tightness consistent with his typical COPD type symptoms. He states he has been using his albuterol inhalers and other medications at home as directed by his primary care provider, denies any swelling extremities, any sick contacts or exposures, any change in his chronic cough. No abdominal pain flank pain or back pain, no urinary complaints. No fevers or chills. Review of Systems Review of Systems Constitutional: Denies fever or chills. [] Eyes: Denies change in visual acuity. [] HENT: Denies nasal congestion or sore throat. [] Respiratory: Chronic cough with worsening shortness of breath. Cardiovascular: Chest tightness, no edema. GI: Denies abdominal pain, nausea, vomiting, bloody stools or diarrhea. [] : Denies dysuria. [] Musculoskeletal: Denies back pain or joint pain. [] Integument: Denies rash. [] Neurologic: Denies headache, focal weakness or sensory changes. [] Lightheadedness and dizziness. Endocrine: Denies polyuria or polydipsia. [] Lymphatic: Denies swollen glands. [] Psychiatric: Denies depression or anxiety. [] Current Medications Current Medications Current Medications Medications (Trade) Dose Ordered Sig/Ken Start Time Stop Time Status Last Admin Dose Admin Albuterol/ Ipratropium (Duoneb) 3 ml 1X ONCE 03/31/17 15:45 03/31/17 15:46 DC 03/31/17 16:48 3 ML Methylprednisolone Sodium Succinate (Solu-Medrol 125mg Vial) 125 mg 1X ONCE 03/31/17 15:45 03/31/17 15:46 DC 03/31/17 16:08 125 MG Allergies Allergies Allergies Coded Allergies Type Severity Reaction Last Updated Verified No Known Drug Allergies 02/02/16 No Physical Exam Physical Exam Constitutional: Well developed, well nourished, no acute distress, non-toxic appearance. [] HENT: Normocephalic, atraumatic, bilateral external ears normal, oropharynx moist, no oral exudates, nose normal. [] Eyes: PERRLA, EOMI, conjunctiva normal, no discharge. [] Neck: Normal range of motion, no tenderness, supple, no stridor. [] Cardiovascular:Heart rate regular rhythm, no murmur [] Lungs & Thorax: Bilateral breath sounds clear to auscultation [] Abdomen: Bowel sounds normal, soft, no tenderness, no masses, no pulsatile masses. [] Skin: Warm, dry, no erythema, no rash. [] Back: No tenderness, no CVA tenderness. [] Extremities: No tenderness, no cyanosis, no clubbing, ROM intact, no edema. [] Neurologic: Alert and oriented X 3, normal motor function, normal sensory function, no focal deficits noted. [] Psychologic: Affect normal, judgement normal, mood normal. [] Current Patient Data Vital Signs Vital Signs Date Time Temp Pulse Resp B/P Pulse Ox O2 Delivery O2 Flow Rate FiO2 03/31/17 16:48 96 Room Air 03/31/17 16:10 80 103/66 03/31/17 14:51 98.0 24 98.0 Lab Values Laboratory Tests Test 03/31/17 15:05 White Blood Count 6.7x10^3/uL (4.0-11.0) Red Blood Count 4.19x10^6/uL (4.30-5.70) L Hemoglobin 13.5g/dL (13.0-17.5) Hematocrit 40.0% (39.0-53.0) Mean Corpuscular Volume 95fL (79-100) Mean Corpuscular Hemoglobin 32pg (25-35) Mean Corpuscular Hemoglobin Concent 34g/dL (31-37) Red Cell Distribution Width 15.0% (11.5-14.5) H Platelet Count 272x10^3/uL (140-400) Neutrophils (%) (Auto) 67% (31-73) Lymphocytes (%) (Auto) 15% (24-48) L Monocytes (%) (Auto) 12% (0-9) H Eosinophils (%) (Auto) 6% (0-3) H Basophils (%) (Auto) 1% (0-3) Neutrophils # (Auto) 4.5x10^3uL (1.8-7.7) Lymphocytes # (Auto) 1.0x10^3/uL (1.0-4.8) Monocytes # (Auto) 0.8x10^3/uL (0.0-1.1) Eosinophils # (Auto) 0.4x10^3/uL (0.0-0.7) Basophils # (Auto) 0.1x10^3/uL (0.0-0.2) Sodium Level 138mmol/L (136-145) Potassium Level 4.0mmol/L (3.5-5.1) Chloride Level 103mmol/L (98-107) Carbon Dioxide Level 30mmol/L (21-32) Anion Gap 5 (6-14) L Blood Urea Nitrogen 15mg/dL (8-26) Creatinine 0.9mg/dL (0.7-1.3) Estimated GFR (Cockcroft-Gault) 85.2 BUN/Creatinine Ratio 17 (6-20) Glucose Level 105mg/dL (70-99) H Calcium Level 9.6mg/dL (8.5-10.1) Total Bilirubin 0.3mg/dL (0.2-1.0) Aspartate Amino Transferase (AST) 28U/L (15-37) Alanine Aminotransferase (ALT) 28U/L (16-63) Alkaline Phosphatase 62U/L (46-116) Troponin I Quantitative < 0.017ng/mL (0.000-0.055) HL-Toh-K-Type Natriuretic Peptide 214pg/mL (0-124) H Total Protein 8.1g/dL (6.4-8.2) Albumin 3.0g/dL (3.4-5.0) L Albumin/Globulin Ratio 0.6 (1.0-1.7) L Laboratory Tests 03/31/17 15:05 Laboratory Tests 03/31/17 15:05 EKG EKG EC: Sinus rhythm, heart rate 87 bpm, QTC of 393, MI of 204, QRS is 66, moderate baseline artifact noted, contour abnormality is noted in the septal leads, no ST elevations or depressions, abnormal ECG, does not meet STEMI criteria. [] Radiology/Procedures Radiology/Procedures [] [address] [address] IMAGING REPORT Signed PATIENT: DELFINO LEONARDO ACCOUNT: [id number] : 1955 LOCATION: ER AGE: 62 SEX: M EXAM STATUS: REG ER ORD. PHYSICIAN: ABILIO GONZALES DO REASON: Dizziness/weakness PROCEDURE: CT HEAD WO CONTRAST Indication dizziness. Weakness. Noncontrast images of the head were obtained. No prior imaging of the head is available. No acute or significant calvarial finding is seen. There is a probable small polyp or retention cyst in the right maxillary sinus. There is no mass or midline shift. There is some underlying atrophy. An acute finding is not seen. There is no evidence of hemorrhage. IMPRESSION: Chronic changes. No acute finding seen PQRS Compliance Statement: One or more of the following individualized dose reduction techniques were utilized for this examination: 1. Automated exposure control 2. Adjustment of the mA and/or kV according to patient size 3. Use of iterative reconstruction technique DICTATED and SIGNED BY: JESÚS VALLE MD DATE: 03/31/17 0463 CC: ABILIO GONZALES DO; DEBORAH PICKENS MD ~ Impressions: [address] [address] IMAGING REPORT Signed PATIENT: DELFINO LEONARDO ACCOUNT: [id number] : 1955 LOCATION: ER AGE: 62 SEX: M EXAM STATUS: PRE ER ORD. PHYSICIAN: ABILIO GONZALES DO REASON: SOB. ED21. GETTING IV 1505- PROCEDURE: PORTABLE CHEST 1V Indication shortness of air. Cough. A single view of the chest was obtained and is compared to an examination 5 days earlier. Again extensive pleural-parenchymal changes, most compatible with scar, are noted. Heart and pulmonary vessels are similar. A definite acute finding or significant change when compared to the previous exam is not seen. IMPRESSION: Chronic changes. No acute finding. No significant change DICTATED and SIGNED BY: JESÚS VALLE MD DATE: 03/31/17 1542 CC: ABILIO GONZALES DO; DEBORAH PICKENS MD ~ Course & Med Decision Making Course & Med Decision Making Pertinent Labs and Imaging studies reviewed. (See chart for details) Patient's symptoms improved administration of DuoNeb's and albuterol in the emergency part. Due to his report of dizziness with vertiginous symptoms, and weakness, CT of the head was obtained, which was unremarkable. I do believe the patient's symptoms are consistent with his progressive and debilitating COPD. Patient is agreeable for admission to the hospital, for continued respiratory management, and would like evaluation for placement in a nursing facility, as he feels as he is unable to safely perform activities of daily living at this point due to his COPD. I did discuss findings as above with Dr. Knox, on-call for his primary care provider, patient was accepted to her service as a full admission to the medical telemetry floor, with consultation for Dr. Epstein of pulmonary critical care. Bridge orders entered per discussion. Dragon Disclaimer Dragon Disclaimer This electronic medical record was generated, in whole or in part, using a voice recognition dictation system. Departure Impression: Primary Impression: COPD (chronic obstructive pulmonary disease) Additional Impression: Dizziness Disposition: ADMITTED INPATIENT Admitting Physician: Fifi Ahn Condition: GOOD Problem Qualifiers ABILIO GONZALES DO March 31, 2017 15:39
[2017-03-31] MEDS ORDERED: methylPREDNISolone SOD SUCC PF 125 MG/2 ML VIAL. IV ONE (15:45)
[2017-03-31] MEDS ORDERED: IPRATRPIUM/ALBUTEROL 0.5/2.5MG 3 ML NEBU. NEB ONE (15:45)
--- NOTE | 2017-03-31 15:46 | RAD ---
Indication shortness of air. Cough. A single view of the chest was obtained and is compared to an examination 5 days earlier. Again extensive pleural-parenchymal changes, most compatible with scar, are noted. Heart and pulmonary vessels are similar. A definite acute finding or significant change when compared to the previous exam is not seen. IMPRESSION: Chronic changes. No acute finding. No significant change
[2017-03-31 15:52] LABS: CALCIUM 9.6 mg/dL (8.5-10.1); CREATININE 0.9 mg/dL (0.7-1.3); GFR 85.2
[2017-03-31 15:57] LABS: ALBUMIN/GLOBULIN RATIO 0.6 (1.0-1.7); TOTAL BILIRUBIN 0.3 mg/dL (0.2-1.0); TOTAL PROTEIN 8.1 g/dL (6.4-8.2)
--- NOTE | 2017-03-31 15:57 | EKG ---
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
--- NOTE | 2017-03-31 16:40 | RAD ---
Indication dizziness. Weakness. Noncontrast images of the head were obtained. No prior imaging of the head is available. No acute or significant calvarial finding is seen. There is a probable small polyp or retention cyst in the right maxillary sinus. There is no mass or midline shift. There is some underlying atrophy. An acute finding is not seen. There is no evidence of hemorrhage. IMPRESSION: Chronic changes. No acute finding seen PQRS Compliance Statement: One or more of the following individualized dose reduction techniques were utilized for this examination: 1. Automated exposure control 2. Adjustment of the mA and/or kV according to patient size 3. Use of iterative reconstruction technique
[2017-03-31 18:40] VITALS: BP 125/84
[2017-03-31] MEDS ORDERED: ACETAMINOPHEN 325 MG TABLET. PO PRN (19:15)
[2017-03-31] MEDS ORDERED: ONDANSETRON PF 4 MG/2 ML VIAL. IV PRN (19:15)
[2017-03-31] MEDS: methylPREDNISolone SOD SUCC PF 40 MG/ML VIAL. IV SCH (20:30)
[2017-03-31] MEDS: IPRATRPIUM/ALBUTEROL 0.5/2.5MG 3 ML NEBU. NEB SCH (20:35)
[2017-03-31] MEDS: ALBUTEROL SULFATE 2.5 MG/3 ML NEBU. NEB PRN (23:36)
[2017-03-31] MEDS: TEMAZEPAM 15 MG CAPSULE PO SCH (23:38)
[2017-03-31 23:40] VITALS: BP 106/69
[2017-04-01 03:40] VITALS: BP 96/57
[2017-04-01 05:01] LABS: BASO % 1 % (0-3); EOS % 0 % (0-3); HEMATOCRIT 35.8 % (39.0-53.0); LYMPH # 0.7 x10^3/uL (1.0-4.8); LYMPH % 17 % (24-48); MEAN CORPUSCULAR HEMOGLOBIN 32 pg (25-35); MEAN CORPUSCULAR HGB CONC 34 g/dL (31-37); MEAN CORPUSCULAR VOLUME 95 fL (79-100); MONO % 11 % (0-9); NEUT % 72 % (31-73); PLATELET COUNT 273 x10^3/uL (140-400); RED BLOOD COUNT 3.78 x10^6/uL (4.30-5.70); RED CELL DISTRIBUTION WIDTH 14.8 % (11.5-14.5); WHITE BLOOD COUNT 4.3 x10^3/uL (4.0-11.0)
[2017-04-01 05:06] LABS: CALCIUM 9.3 mg/dL (8.5-10.1); CREATININE 0.7 mg/dL (0.7-1.3); GFR 113.9; POTASSIUM 4.2 mmol/L (3.5-5.1)
[2017-04-01 07:00] VITALS: BP 98/55
[2017-04-01] MEDS: IPRATRPIUM/ALBUTEROL 0.5/2.5MG 3 ML NEBU. NEB SCH ×4 (07:02→20:15)
--- NOTE | 2017-04-01 07:50 | PDOC1 ---
History and Physical Date of Admission Date of Admission 03/31/17 Identification/Chief Complaint Chief Complaint "Couldn't breathe" Problems: Source Source: Patient History of Present Illness History of Present Illness Pt states that he became very short of breath when using the restroom and was not able to bear weight on his legs anymore. He believes the weakness was due to being in a vehicle for several hours when he was visiting his sister in [place], and not moving around. He does believe that he gets panicked when he starts to have a sensation of not being able to breathe, which contributed to occurrence last night. Pt was living at [facility] in [place] but ended up having to come back to the hospital for pneumonia and then was transferred to [place]. He would like to go back to [facility]. Pt has had a productive cough with thick green/yellow sputum for the past 3-4 days. He was seen in the ER and prescribed antibiotics and steroids but could not afford to pick them up as he does not get his disability check until tomorrow. Past Medical History Cardiovascular: Other Pulmonary: COPD, Other (MAC) CENTRAL NERVOUS SYSTEM: Other GI: No pertinent hx Heme/Onc: No pertinent hx Hepatobiliary: No pertinent hx Psych: Anxiety, Depression Rheumatologic: No pertinent hx Infectious disease: No pertinent hx ENT: No pertinent hx Renal/: No pertinent hx Endocrine: No pertinent hx Dermatology: No pertinent hx Past Surgical History Past Surgical History: Other (Back surgery x2, hemorrhoidectomy) Family History Family History: Cancer (brother- lung cancer, sister-throat cancer, mom- unknown cancer) Social History Smoke: Quit ALCOHOL: occassional Drugs: Cocaine (history of) Current Problem List Problem List Problems Medical Problems: (1) COPD (chronic obstructive pulmonary disease) Status: Acute (2) Dizziness Status: Acute Current Medications Current Medications Current Medications Medications (Trade) Dose Ordered Sig/Ken Start Time Stop Time Status Last Admin Dose Admin Acetaminophen (Tylenol) 650 mg PRN Q4HRS PRN 03/31/17 19:15 04/01/17 19:14 Albuterol Sulfate (Ventolin Neb Soln) 2.5 mg PRN Q4HRS PRN 03/31/17 21:15 03/31/17 23:36 2.5 MG Albuterol/ Ipratropium (Duoneb) 3 ml RTQID 03/31/17 20:00 04/01/17 19:59 04/01/17 07:02 3 ML Methylprednisolone Sodium Succinate (Solu-Medrol 40mg Vial) 40 mg Q12HR 03/31/17 21:00 03/31/17 20:30 40 MG Methylprednisolone Sodium Succinate (Solu-Medrol 125mg Vial) 125 mg 1X ONCE 03/31/17 15:45 03/31/17 15:46 DC 03/31/17 16:08 125 MG Ondansetron HCl (Zofran) 4 mg PRN Q8HRS PRN 03/31/17 19:15 04/01/17 19:14 Temazepam (Restoril) 15 mg HS 03/31/17 21:15 03/31/17 23:38 15 MG Allergies Allergies Allergies Coded Allergies Type Severity Reaction Last Updated Verified No Known Drug Allergies 02/02/16 No ROS Review of System CONSTITUTIONAL: No fever or chills EYES: No recent changes SKIN: No rash or itching CARDIOVASCULAR: No chest pain, syncope, palpitations, or edema RESPIRATORY: See HPI GASTROINTESTINAL: No nausea, vomiting or abdominal pain. Looser stools NEUROLOGICAL: No headaches or weakness ENDOCRINE: No cold or heat intolerance GENITOURINARY: No urgency or frequency of urination MUSCULOSKELETAL: No back pain or joint pain LYMPHATICS: No enlarged lymph nodes PSYCHIATRIC: No anxiety or depression Physical Exam Physical Exam GEN.: No apparent distress. Alert and oriented. Cachetic HEENT: Head is normocephalic, atraumatic NECK: Supple, no thyromegaly or lymphadenopathy LUNGS: fine crackles in bases bilaterally, worse on left HEART: RRR, S1, S2 present. Peripheral pulses intact ABDOMEN: Soft, nontender. Positive bowel sounds. EXTREMITIES: Without any cyanosis. NEUROLOGIC: Normal speech, normal tone PSYCHIATRIC: Normal affect, normal mood. SKIN: No ulcerations Vitals Vitals Vital Signs Date Time Temp Pulse Resp B/P Pulse Ox O2 Delivery O2 Flow Rate FiO2 04/01/17 03:40 97.4 74 16 96/57 93 Nasal Cannula 3.0 97.4 Labs Labs Laboratory Tests Test 03/31/17 15:05 04/01/17 03:20 White Blood Count 6.7x10^3/uL (4.0-11.0) 4.3x10^3/uL (4.0-11.0) Red Blood Count 4.19x10^6/uL (4.30-5.70) 3.78x10^6/uL (4.30-5.70) Hemoglobin 13.5g/dL (13.0-17.5) 12.0g/dL (13.0-17.5) Hematocrit 40.0% (39.0-53.0) 35.8% (39.0-53.0) Mean Corpuscular Volume 95fL (79-100) 95fL (79-100) Mean Corpuscular Hemoglobin 32pg (25-35) 32pg (25-35) Mean Corpuscular Hemoglobin Concent 34g/dL (31-37) 34g/dL (31-37) Red Cell Distribution Width 15.0% (11.5-14.5) 14.8% (11.5-14.5) Platelet Count 272x10^3/uL (140-400) 273x10^3/uL (140-400) Neutrophils (%) (Auto) 67% (31-73) 72% (31-73) Lymphocytes (%) (Auto) 15% (24-48) 17% (24-48) Monocytes (%) (Auto) 12% (0-9) 11% (0-9) Eosinophils (%) (Auto) 6% (0-3) 0% (0-3) Basophils (%) (Auto) 1% (0-3) 1% (0-3) Neutrophils # (Auto) 4.5x10^3uL (1.8-7.7) 3.1x10^3uL (1.8-7.7) Lymphocytes # (Auto) 1.0x10^3/uL (1.0-4.8) 0.7x10^3/uL (1.0-4.8) Monocytes # (Auto) 0.8x10^3/uL (0.0-1.1) 0.5x10^3/uL (0.0-1.1) Eosinophils # (Auto) 0.4x10^3/uL (0.0-0.7) 0.0x10^3/uL (0.0-0.7) Basophils # (Auto) 0.1x10^3/uL (0.0-0.2) 0.0x10^3/uL (0.0-0.2) Sodium Level 138mmol/L (136-145) 138mmol/L (136-145) Potassium Level 4.0mmol/L (3.5-5.1) 4.2mmol/L (3.5-5.1) Chloride Level 103mmol/L (98-107) 102mmol/L (98-107) Carbon Dioxide Level 30mmol/L (21-32) 30mmol/L (21-32) Anion Gap 5 (6-14) 6 (6-14) Blood Urea Nitrogen 15mg/dL (8-26) 20mg/dL (8-26) Creatinine 0.9mg/dL (0.7-1.3) 0.7mg/dL (0.7-1.3) Estimated GFR (Cockcroft-Gault) 85.2 113.9 BUN/Creatinine Ratio 17 (6-20) Glucose Level 105mg/dL (70-99) 128mg/dL (70-99) Calcium Level 9.6mg/dL (8.5-10.1) 9.3mg/dL (8.5-10.1) Total Bilirubin 0.3mg/dL (0.2-1.0) Aspartate Amino Transf (AST/SGOT) 28U/L (15-37) Alanine Aminotransferase (ALT/SGPT) 28U/L (16-63) Alkaline Phosphatase 62U/L (46-116) Troponin I Quantitative < 0.017ng/mL (0.000-0.055) HI-Gvv-J-Type Natriuretic Peptide 214pg/mL (0-124) Total Protein 8.1g/dL (6.4-8.2) Albumin 3.0g/dL (3.4-5.0) Albumin/Globulin Ratio 0.6 (1.0-1.7) Laboratory Tests Test 03/31/17 15:05 04/01/17 03:20 White Blood Count 6.7x10^3/uL (4.0-11.0) 4.3x10^3/uL (4.0-11.0) Red Blood Count 4.19x10^6/uL (4.30-5.70) 3.78x10^6/uL (4.30-5.70) Hemoglobin 13.5g/dL (13.0-17.5) 12.0g/dL (13.0-17.5) Hematocrit 40.0% (39.0-53.0) 35.8% (39.0-53.0) Mean Corpuscular Volume 95fL (79-100) 95fL (79-100) Mean Corpuscular Hemoglobin 32pg (25-35) 32pg (25-35) Mean Corpuscular Hemoglobin Concent 34g/dL (31-37) 34g/dL (31-37) Red Cell Distribution Width 15.0% (11.5-14.5) 14.8% (11.5-14.5) Platelet Count 272x10^3/uL (140-400) 273x10^3/uL (140-400) Neutrophils (%) (Auto) 67% (31-73) 72% (31-73) Lymphocytes (%) (Auto) 15% (24-48) 17% (24-48) Monocytes (%) (Auto) 12% (0-9) 11% (0-9) Eosinophils (%) (Auto) 6% (0-3) 0% (0-3) Basophils (%) (Auto) 1% (0-3) 1% (0-3) Neutrophils # (Auto) 4.5x10^3uL (1.8-7.7) 3.1x10^3uL (1.8-7.7) Lymphocytes # (Auto) 1.0x10^3/uL (1.0-4.8) 0.7x10^3/uL (1.0-4.8) Monocytes # (Auto) 0.8x10^3/uL (0.0-1.1) 0.5x10^3/uL (0.0-1.1) Eosinophils # (Auto) 0.4x10^3/uL (0.0-0.7) 0.0x10^3/uL (0.0-0.7) Basophils # (Auto) 0.1x10^3/uL (0.0-0.2) 0.0x10^3/uL (0.0-0.2) Sodium Level 138mmol/L (136-145) 138mmol/L (136-145) Potassium Level 4.0mmol/L (3.5-5.1) 4.2mmol/L (3.5-5.1) Chloride Level 103mmol/L (98-107) 102mmol/L (98-107) Carbon Dioxide Level 30mmol/L (21-32) 30mmol/L (21-32) Anion Gap 5 (6-14) 6 (6-14) Blood Urea Nitrogen 15mg/dL (8-26) 20mg/dL (8-26) Creatinine 0.9mg/dL (0.7-1.3) 0.7mg/dL (0.7-1.3) Estimated GFR (Cockcroft-Gault) 85.2 113.9 BUN/Creatinine Ratio 17 (6-20) Glucose Level 105mg/dL (70-99) 128mg/dL (70-99) Calcium Level 9.6mg/dL (8.5-10.1) 9.3mg/dL (8.5-10.1) Total Bilirubin 0.3mg/dL (0.2-1.0) Aspartate Amino Transf (AST/SGOT) 28U/L (15-37) Alanine Aminotransferase (ALT/SGPT) 28U/L (16-63) Alkaline Phosphatase 62U/L (46-116) Troponin I Quantitative < 0.017ng/mL (0.000-0.055) SV-Hec-T-Type Natriuretic Peptide 214pg/mL (0-124) Total Protein 8.1g/dL (6.4-8.2) Albumin 3.0g/dL (3.4-5.0) Albumin/Globulin Ratio 0.6 (1.0-1.7) VTE Prophylaxis Ordered VTE Prophylaxis Devices: No VTE Pharmacological Prophylaxi: No Assessment/Plan Assessment/Plan Pt is a 62yo CM admitted for COPD exacerbation and weakness 1)COPD exacerbation- pt currently being treated with Solumedrol. Has had productive cough for the past 4-5 days with yellow/green productive sputum. Will start Levaquin. Pulmonary consulted 2)Hx MAC- pt resumed on home medications of Rifampin and Ethambutol 3)Depression/Anxiety- pt continued on Lexapro 10mg 4)Cardiomyopathy- pt continued on Digoxin 250mcg. 5)Anemia- mild, no active bleeding 6)PEM- moderate Disp: pt wanting to be discharged back to [facility] in [place]. Pt can not afford medications, etc, until the 3rd of the month MARCO MAS MD April 01, 2017 07:50
--- NOTE | 2017-04-01 09:34 | PDOC ---
Provider Note Provider Note dictated DONY ARCE MD April 01, 2017 09:34
[2017-04-01] MEDS: ESCITALOPRAM 10 MG TABLET. PO SCH (09:56)
[2017-04-01] MEDS: riFAMpin 300 MG CAPSULE. PO SCH ×2 (09:56→21:04)
[2017-04-01] MEDS: methylPREDNISolone SOD SUCC PF 40 MG/ML VIAL. IV SCH ×2 (09:58→21:04)
[2017-04-01] MEDS: DIGOXIN 250 MCG TABLET. PO SCH (09:58)
[2017-04-01] MEDS: ETHAMBUTOL HCL 400 MG TABLET PO SCH (10:28)
--- NOTE | 2017-04-01 10:48 | CONS ---
DATE OF CONSULTATION: ATTENDING PHYSICIAN: Dr. Keith. REASON FOR CONSULTATION: Dyspnea. HISTORY OF PRESENT ILLNESS: The patient is a 62-year-old male who is very well known to me with history of COPD, history of cardiomyopathy with last EF of 30-35%. History of Mycobacterium avium complex infection and on treatment. He was admitted to the hospital with complaint of some weakness. He states his legs gave up yesterday became weak. . He also fell due to the weakness in the legs. He has some mild shortness of breath. He has a cough with light yellow sputum production. No fever, no chills. He has been tolerating the MAC treatment reasonably well. I have reviewed the patient's chest x-ray, there appears to be slightly prominent interstitial markings when compared to previous films and the left upper lobe scarring is unchanged. His CT head showed no acute findings. He does not require home oxygen. Consultation requested for further evaluation and management. PAST MEDICAL HISTORY: History of COPD, history of pneumonia, history of Mycobacterium avium complex infection and history of cardiomyopathy. PAST SURGICAL HISTORY: Prior bronchoscopy. ALLERGIES: None. CURRENT MEDICATIONS: Reviewed as listed in the MRAD including a medicine for MAC. He ____ IV steroids ____ Levaquin. REVIEW OF SYSTEMS: A 12-point system obtained. Pertinent positives discussed in my history of present illness, otherwise noncontributory. All systems that were negative were reviewed as well. SOCIAL HISTORY: No longer smokes cigarettes and no longer does cocaine or marijuana. PHYSICAL EXAMINATION: VITAL SIGNS: Stable. Blood pressure 98/55, afebrile, pulse ox 97% on room air. HEENT: Sclerae nonicteric. NECK: Supple. LUNGS: With few crackles posteriorly. CARDIOVASCULAR: Regular ____. ABDOMEN: Soft. EXTREMITIES: With no pitting edema. LABORATORY DATA: Reviewed. White cell count ____, hemoglobin 12.0 and platelets are 273. BUN is 15, creatinine 0.9. IMPRESSION: 1. Dyspnea/acute on chronic respiratory failure, I suspect most likely related to mild interstitial edema. Cannot exclude interstitial pneumonia. He does have more prominent interstitial markings on his chest x-ray. 2. History of chronic obstructive pulmonary disease. 3. History of Mycobacterium avium complex infection, currently being treated with rifampin, ethambutol and azithromycin. RECOMMENDATIONS: 1. We will try mild diuresis. 2. Sputum for C and S. 3. P.r.n. oxygen. 4. Continue MAC treatment. 5. Follow liver function tests. 6. Consider repeating echocardiogram and Cardiology consultation and recommendation. 7. Taper steroids. 8. We will follow along with you. DONY ARCE MD DR: RIA/veronica JOB#: [id number] / [id number] JORGE
[2017-04-01 11:08] VITALS: BP 96/59
[2017-04-01 15:00] VITALS: BP 96/65
[2017-04-01 19:05] VITALS: BP 98/67
[2017-04-01] MEDS: TEMAZEPAM 15 MG CAPSULE PO SCH (21:04)
[2017-04-01] MEDS: ALBUTEROL SULFATE 2.5 MG/3 ML NEBU. NEB PRN (23:41)
[2017-04-01 23:44] VITALS: BP 116/70
[2017-04-02] MEDS: IPRATRPIUM/ALBUTEROL 0.5/2.5MG 3 ML NEBU. NEB SCH ×4 (07:09→19:26)
[2017-04-02 07:30] VITALS: BP 77/49
[2017-04-02] MEDS: DIGOXIN 250 MCG TABLET. PO SCH (08:07)
--- NOTE | 2017-04-02 08:11 | PDOC ---
SUBJECTIVE Subjective Pt states that he is feeling a little bit this morning. States that he didn't see the social economist yesterday, and physical therapy has not seen him this morning either. Pt's blood pressure is low but he is asymptomatic and afebrile. OBJECTIVE Vital Signs Vital Signs Date Time Temp Pulse Resp B/P Pulse Ox O2 Delivery O2 Flow Rate FiO2 04/02/17 07:30 97.4 75 18 77/49 93 Room Air 97.4 04/02/17 07:10 95 Room Air 04/01/17 23:44 97.5 74 20 116/70 93 Room Air 97.5 04/01/17 23:41 Room Air 04/01/17 20:17 91 Room Air 04/01/17 20:00 Room Air 04/01/17 19:05 97.8 79 20 98/67 93 Room Air 97.8 04/01/17 15:05 Room Air 04/01/17 15:00 98.1 78 24 96/65 97 Room Air 98.1 04/01/17 11:52 90 Room Air 04/01/17 11:08 97.8 79 24 96/59 93 Room Air 97.8 04/01/17 09:58 70 98/55 I & O Intake and Output 04/02/17 07:00 Intake Total 2680 ml Balance 2680 ml Intake Oral 2680 ml # Voids 4 PHYSICAL EXAM Physical Exam GEN.: No apparent distress. Alert and oriented. Cachetic HEENT: Head is normocephalic, atraumatic NECK: Supple, no thyromegaly or lymphadenopathy LUNGS: end expiratory wheeze heard left upper lobe, diminished airflow throughout HEART: RRR, S1, S2 present. Peripheral pulses intact ABDOMEN: Soft, nontender. Positive bowel sounds. EXTREMITIES: Without any cyanosis. NEUROLOGIC: Normal speech, normal tone PSYCHIATRIC: Normal affect, normal mood. SKIN: No ulcerations ASSESSMENT/PLAN Assessment/Plan Pt is a 62yo CM admitted for COPD exacerbation and weakness 1)COPD exacerbation- pt currently being treated with Solumedrol. Pulmonary following. Pt started on Levaquin for productive cough 4-5 days prior to admission with yellow/green productive sputum. Pt subjectively feeling better today. PT/OT and social economist to hopefully see today. 2)Hx MAC- pt resumed on home medications of Rifampin and Ethambutol 3)Depression/Anxiety- pt continued on Lexapro 10mg 4)Cardiomyopathy- holding Digoxin currently due to hypotension 5)Anemia- mild, no active bleeding 6)PEM- moderate Disp: pt wanting to be discharged back to [facility] in [place]. Pt can not afford medications, etc, until the 3rd of the month Problems: MARCO MAS MD April 02, 2017 08:11
[2017-04-02] MEDS: ETHAMBUTOL HCL 400 MG TABLET PO SCH (08:17)
[2017-04-02] MEDS: methylPREDNISolone SOD SUCC PF 40 MG/ML VIAL. IV SCH ×2 (08:17→20:39)
[2017-04-02] MEDS: riFAMpin 300 MG CAPSULE. PO SCH ×2 (08:18→20:38)
[2017-04-02] MEDS: ESCITALOPRAM 10 MG TABLET. PO SCH (08:18)
[2017-04-02] MEDS ORDERED: IV NORMAL SALINE 500ML BAG 500 ML IV ONE (09:45)
[2017-04-02 10:55] VITALS: BP 101/63
--- NOTE | 2017-04-02 12:38 | PDOC ---
PULMONARY PROGRESS NOTES Subjective still coughing Vitals Vital Signs Date Time Temp Pulse Resp B/P Pulse Ox O2 Delivery O2 Flow Rate FiO2 04/02/17 11:01 Room Air 04/02/17 10:55 97.6 78 20 101/63 95 97.6 General: Alert, No acute distress HEENT: Other Lungs: Other (decrease bs) Cardiovascular: S1, S2 Abdomen: Soft, Non-tender Extremities: No Edema, Other Labs Laboratory Tests Test 03/31/17 15:05 04/01/17 03:20 White Blood Count 6.7x10^3/uL (4.0-11.0) 4.3x10^3/uL (4.0-11.0) Red Blood Count 4.19x10^6/uL (4.30-5.70) 3.78x10^6/uL (4.30-5.70) Hemoglobin 13.5g/dL (13.0-17.5) 12.0g/dL (13.0-17.5) Hematocrit 40.0% (39.0-53.0) 35.8% (39.0-53.0) Mean Corpuscular Volume 95fL (79-100) 95fL (79-100) Mean Corpuscular Hemoglobin 32pg (25-35) 32pg (25-35) Mean Corpuscular Hemoglobin Concent 34g/dL (31-37) 34g/dL (31-37) Red Cell Distribution Width 15.0% (11.5-14.5) 14.8% (11.5-14.5) Platelet Count 272x10^3/uL (140-400) 273x10^3/uL (140-400) Neutrophils (%) (Auto) 67% (31-73) 72% (31-73) Lymphocytes (%) (Auto) 15% (24-48) 17% (24-48) Monocytes (%) (Auto) 12% (0-9) 11% (0-9) Eosinophils (%) (Auto) 6% (0-3) 0% (0-3) Basophils (%) (Auto) 1% (0-3) 1% (0-3) Neutrophils # (Auto) 4.5x10^3uL (1.8-7.7) 3.1x10^3uL (1.8-7.7) Lymphocytes # (Auto) 1.0x10^3/uL (1.0-4.8) 0.7x10^3/uL (1.0-4.8) Monocytes # (Auto) 0.8x10^3/uL (0.0-1.1) 0.5x10^3/uL (0.0-1.1) Eosinophils # (Auto) 0.4x10^3/uL (0.0-0.7) 0.0x10^3/uL (0.0-0.7) Basophils # (Auto) 0.1x10^3/uL (0.0-0.2) 0.0x10^3/uL (0.0-0.2) Sodium Level 138mmol/L (136-145) 138mmol/L (136-145) Potassium Level 4.0mmol/L (3.5-5.1) 4.2mmol/L (3.5-5.1) Chloride Level 103mmol/L (98-107) 102mmol/L (98-107) Carbon Dioxide Level 30mmol/L (21-32) 30mmol/L (21-32) Anion Gap 5 (6-14) 6 (6-14) Blood Urea Nitrogen 15mg/dL (8-26) 20mg/dL (8-26) Creatinine 0.9mg/dL (0.7-1.3) 0.7mg/dL (0.7-1.3) Estimated GFR (Cockcroft-Gault) 85.2 113.9 BUN/Creatinine Ratio 17 (6-20) Glucose Level 105mg/dL (70-99) 128mg/dL (70-99) Calcium Level 9.6mg/dL (8.5-10.1) 9.3mg/dL (8.5-10.1) Total Bilirubin 0.3mg/dL (0.2-1.0) Aspartate Amino Transf (AST/SGOT) 28U/L (15-37) Alanine Aminotransferase (ALT/SGPT) 28U/L (16-63) Alkaline Phosphatase 62U/L (46-116) Troponin I Quantitative < 0.017ng/mL (0.000-0.055) ZM-Mzf-O-Type Natriuretic Peptide 214pg/mL (0-124) Total Protein 8.1g/dL (6.4-8.2) Albumin 3.0g/dL (3.4-5.0) Albumin/Globulin Ratio 0.6 (1.0-1.7) Hemoglobin A1c 5.4% (4.8-5.6) Medications Active Scripts Medications Dose Route/Sig Days Date Category Dose Instructions Tessalon Perle (Benzonatate) 100 Mg Capsule 100 Mg PO TID PRN 03/26/17 Rx Zithromax (Azithromycin) 250 Mg Tablet 1 Pkg PO UD 03/26/17 Rx Prednisone 50 Mg Tablet 1 Tab PO DAILY 03/26/17 Rx Mucinex (Guaifenesin) 600 Mg Tablet.er 600 Mg PO BID 03/13/17 Reported Albuterol Sulfate Conc Neb Soln (Albuterol Sulfate) 2.5 Mg/0.5 Ml Vial.neb 1 Vial NEB Q4HRS 02/25/17 Reported Proair Hfa Inhaler (Albuterol Sulfate) 8.5 Gm Hfa.aer.ad 1 Puff INH PRN Q4HRS PRN 02/25/17 Reported Duoneb 0.5-3(2.5) Mg/3 Ml (Albuterol/Ipratropium) 3 Ml Ampul.neb 3 Ml NEB QID 02/25/17 Reported Ethambutol Hcl 400 Mg Tablet 800 Mg DAILY 10/22/16 Reported Rifampin 300 Mg Capsule 300 Mg BID 10/22/16 Reported Digoxin 250 Mcg Tablet 0.25 Mg DAILY 10/22/16 Reported Hold for heart rate less than 90 Escitalopram Oxalate 10 Mg Tablet 10 Mg DAILY 10/22/16 Reported Temazepam 15 Mg Capsule 1 Cap HS 10/22/16 Reported Impression . 1. Dyspnea/acute on chronic respiratory failure, I suspect most likely related to mild interstitial edema. Cannot exclude interstitial pneumonia. He does have more prominent interstitial markings on his chest x-ray. 2. History of chronic obstructive pulmonary disease. 3. History of Mycobacterium avium complex infection, currently being treated with rifampin, ethambutol and azithromycin. Plan . 1. hold further diuresis. 2. Sputum for C and S. 3. P.r.n. oxygen. 4. Continue MAC treatment. 5. Follow liver function tests. 6. repeat echocardiogram and Cardiology consultation and recommendation. 7. Taper steroids. 8. We will follow along with you. DONY ARCE MD April 02, 2017 12:37
[2017-04-02] MEDS: ALBUTEROL SULFATE 2.5 MG/3 ML NEBU. NEB PRN ×2 (14:09→23:23)
[2017-04-02 14:56] VITALS: BP 85/60
[2017-04-02 18:17] VITALS: BP 103/78
[2017-04-02 19:55] VITALS: BP 100/65
[2017-04-02] MEDS: TEMAZEPAM 15 MG CAPSULE PO SCH (20:38)
[2017-04-02 23:37] VITALS: BP 105/78
[2017-04-03 02:48] VITALS: BP 102/66
[2017-04-03 07:00] VITALS: BP 97/62
[2017-04-03] MEDS: IPRATRPIUM/ALBUTEROL 0.5/2.5MG 3 ML NEBU. NEB SCH ×4 (07:03→20:43)
--- NOTE | 2017-04-03 08:25 | PDOC ---
SUBJECTIVE Subjective Pt states that he is feeling better and is ready for discharge today. Having some dizziness when moving head from side to side. Hospital inpatient stay denied. OBJECTIVE Vital Signs Vital Signs Date Time Temp Pulse Resp B/P (MAP) Pulse Ox O2 Delivery O2 Flow Rate FiO2 04/03/17 07:05 93 Room Air 04/03/17 07:00 97.8 73 16 97/62 (74) 93 Room Air 97.8 04/03/17 02:48 96.8 78 16 102/66 (78) 92 Room Air 96.8 04/02/17 23:37 98.4 84 24 105/78 (87) 93 Nasal Cannula 2.0 98.4 04/02/17 23:24 Room Air 04/02/17 20:00 Room Air 04/02/17 19:55 97.9 81 20 100/65 (77) 97 97.9 04/02/17 19:27 Room Air 04/02/17 18:17 80 103/78 (86) 04/02/17 15:17 Room Air 04/02/17 14:56 97.4 84 19 85/60 (68) 96 Room Air 97.4 04/02/17 14:10 93 Room Air 04/02/17 11:01 Room Air 04/02/17 10:55 97.6 78 20 101/63 (76) 95 Room Air 97.6 I & O Intake and Output 04/03/17 07:00 Intake Total 1380 ml Output Total 1250 ml Balance 130 ml Intake Oral 1380 ml Output Urine Total 1250 ml # Voids 1 PHYSICAL EXAM Physical Exam GEN.: No apparent distress. Alert and oriented. Cachetic HEENT: Head is normocephalic, atraumatic NECK: Supple, no thyromegaly or lymphadenopathy LUNGS: end expiratory wheeze heard right upper lobe, diminished airflow throughout HEART: RRR, S1, S2 present. Peripheral pulses intact ABDOMEN: Soft, nontender. Positive bowel sounds. EXTREMITIES: Without any cyanosis. NEUROLOGIC: Normal speech, normal tone PSYCHIATRIC: Normal affect, normal mood. SKIN: No ulcerations ASSESSMENT/PLAN Assessment/Plan Pt is a 62yo CM admitted for COPD exacerbation and weakness 1)COPD exacerbation- pt currently being treated with Solumedrol. Pulmonary following. Pt started on Levaquin for productive cough 4-5 days prior to admission with yellow/green productive sputum. Pt subjectively feeling better today. Hopeful discharge to [facility]. 2)Hx MAC- pt resumed on home medications of Rifampin and Ethambutol 3)Depression/Anxiety- pt continued on Lexapro 10mg 4)Cardiomyopathy- holding Digoxin currently due to hypotension 5)Anemia- mild, no active bleeding 6)PEM- moderate Disp: pt wanting to be discharged back to [facility] in [place]. Pt can not afford medications, etc, until the 3rd of the month Problems: MARCO MAS MD April 03, 2017 08:25
[2017-04-03] MEDS: ESCITALOPRAM 10 MG TABLET. PO SCH (08:56)
[2017-04-03] MEDS: riFAMpin 300 MG CAPSULE. PO SCH ×2 (08:56→21:25)
[2017-04-03] MEDS: ETHAMBUTOL HCL 400 MG TABLET PO SCH (08:56)
[2017-04-03] MEDS: methylPREDNISolone SOD SUCC PF 40 MG/ML VIAL. IV SCH ×2 (08:56→21:26)
[2017-04-03 11:00] VITALS: BP 90/57
--- NOTE | 2017-04-03 11:34 | PDOC ---
PULMONARY PROGRESS NOTES Subjective feels better less cough Vitals Vital Signs Date Time Temp Pulse Resp B/P (MAP) Pulse Ox O2 Delivery O2 Flow Rate FiO2 04/03/17 11:14 Room Air 04/03/17 11:00 97.9 77 18 90/57 (68) 93 97.9 04/02/17 23:37 2.0 General: Alert, No acute distress HEENT: Other Lungs: Other (decrease bs) Cardiovascular: S1, S2 Abdomen: Soft, Non-tender Extremities: No Edema, Other Medications Active Scripts Medications Dose Route/Sig Days Date Category Dose Instructions Tessalon Perle (Benzonatate) 100 Mg Capsule 100 Mg PO TID PRN 03/26/17 Rx Zithromax (Azithromycin) 250 Mg Tablet 1 Pkg PO UD 03/26/17 Rx Prednisone 50 Mg Tablet 1 Tab PO DAILY 03/26/17 Rx Mucinex (Guaifenesin) 600 Mg Tablet.er 600 Mg PO BID 03/13/17 Reported Albuterol Sulfate Conc Neb Soln (Albuterol Sulfate) 2.5 Mg/0.5 Ml Vial.neb 1 Vial NEB Q4HRS 02/25/17 Reported Proair Hfa Inhaler (Albuterol Sulfate) 8.5 Gm Hfa.aer.ad 1 Puff INH PRN Q4HRS PRN 02/25/17 Reported Duoneb 0.5-3(2.5) Mg/3 Ml (Albuterol/Ipratropium) 3 Ml Ampul.neb 3 Ml NEB QID 02/25/17 Reported Ethambutol Hcl 400 Mg Tablet 800 Mg DAILY 10/22/16 Reported Rifampin 300 Mg Capsule 300 Mg BID 10/22/16 Reported Digoxin 250 Mcg Tablet 0.25 Mg DAILY 10/22/16 Reported Hold for heart rate less than 90 Escitalopram Oxalate 10 Mg Tablet 10 Mg DAILY 10/22/16 Reported Temazepam 15 Mg Capsule 1 Cap HS 10/22/16 Reported Impression . 1. Dyspnea/acute on chronic respiratory failure, I suspect most likely related to mild interstitial edema. Cannot exclude interstitial pneumonia. He does have more prominent interstitial markings on his chest x-ray. 2. History of chronic obstructive pulmonary disease. 3. History of Mycobacterium avium complex infection, currently being treated with rifampin, ethambutol per ID Plan . 1. hold further diuresis./ low BP 2. Sputum for C and S so far no organism 3. P.r.n. oxygen. 4. Continue MAC treatment per ID 5. Follow liver function tests as OP 6. repeat echocardiogram report pending 7. Taper steroids. 8. possible discharge in am, check final sputum results DONY ARCE MD April 03, 2017 11:34
--- NOTE | 2017-04-03 12:34 | CARD ---
APPROVED REPORT EXAM: Two-dimensional and M-mode echocardiogram with Doppler and color Doppler. Other Information Quality : AverageHR: 76bpm Rhythm : NSR INDICATION Cardiomyopathy 2D DIMENSIONS RVDd3.0 (2.9-3.5cm)Left Atrium(2D)2.8 (1.6-4.0cm) IVSd0.7 (0.7-1.1cm)Aortic Root(2D)3.8 (2.0-3.7cm) LVDd3.6 (3.9-5.9cm)LVOT Diameter2.3 (1.8-2.4cm) PWd0.8 (0.7-1.1cm)LVDs2.1 (2.5-4.0cm) FS (%) 40.8 %SV38.6 ml LVEF(%)72.6 (>50%) Aortic Valve AoV Peak Arben.115.4cm/sAoV VTI20.1cm AO Peak GR.5.3mmHgLVOT Peak Arben.113.3cm/s AO Mean GR.3mmHgAVA (VMAX)4.02cm2 AI P 1/2 Ezpn265ml Mitral Valve MV E Sqzttbrp99.0cm/sMV E Peak Gr.3mmHg MV DECEL [id number] A Ttmwnjvq17.8cm/s MV E Mean Gr.1mmHgE/A Ratio1.0 MV A [id number] Tricuspid Valve TR P. Atzzomsu679gi/sRAP [id number] TR Peak Gr.51pdTdHKHD48cwVw LEFT VENTRICLE The left ventricle is normal size. There is normal left ventricular wall thickness. The left ventricu lar systolic function is normal and the ejection fraction is within normal range. EF 55% There is nor mal LV segmental wall motion. There is no ventricular septal defect visualized. RIGHT VENTRICLE The right ventricle is normal size. The right ventricular systolic function is normal. ATRIA The left atrium size is normal. The right atrium size is normal. The interatrial septum is intact wit h no evidence for an atrial septal defect or patent foramen ovale as noted on 2-D or Doppler imaging. AORTIC VALVE The aortic valve is mildly to moderately calcified but opens well. The aortic valve is trileaflet. Do ppler and Color Flow revealed mild aortic regurgitation. There is no significant aortic valvular sten osis. MITRAL VALVE The mitral valve leaflets are thickened. There is no mitral valve stenosis. Doppler and Color Flow re vealed no mitral valve regurgitation noted. TRICUSPID VALVE The tricuspid valve is normal in structure and function. Doppler and Color Flow revealed trace tricus pid regurgitation. The PA pressure was estimated at 37 mmHg. There is no tricuspid valve stenosis. PULMONIC VALVE Doppler and Color Flow revealed no pulmonic valvular regurgitation. There is no pulmonic valvular phyllis nosis. GREAT VESSELS The aortic root is normal in size. Normal pulmonary venous flow (Doppler). The IVC is normal in size and collapses >50% with inspiration. PERICARDIAL EFFUSION There is no pleural effusion. There is no evidence of significant pericardial effusion. Critical Notification Critical Value: No <Conclusion> The left ventricular systolic function is normal and the ejection fraction is within normal range. EF 55% There is normal LV segmental wall motion.
[2017-04-03 15:00] VITALS: BP 100/61
[2017-04-03 19:00] VITALS: BP 93/63
[2017-04-03 23:00] VITALS: BP 98/62
[2017-04-03] MEDS: TEMAZEPAM 15 MG CAPSULE PO SCH (23:49)
[2017-04-04] MEDS: ALBUTEROL SULFATE 2.5 MG/3 ML NEBU. NEB PRN (00:48)
[2017-04-04 03:00] VITALS: BP 84/46
[2017-04-04] MEDS: IPRATRPIUM/ALBUTEROL 0.5/2.5MG 3 ML NEBU. NEB SCH ×2 (06:45→10:45)
[2017-04-04 07:00] VITALS: BP 95/57
--- NOTE | 2017-04-04 07:53 | PDOC3 ---
Discharge Summary* Date of Admission: March 31, 2017 Date of Discharge: April 04, 2017 Admitting Diagnosis Problems Medical Problems: (1) COPD (chronic obstructive pulmonary disease) Status: Acute (2) Dizziness Status: Acute Final Diagnosis COPD exacerbation and weakness, Hx MAC, Depression/Anxiety, Cardiomyopathy, Anemia, PEM-moderate CONSULTS Pulmonary Procedures CXR- chronic changes, no acute changes. CT Head- chronic changes ECHO- LVEF 55%, normal Brief Hospital Course DISCHARGE PHYSICAL EXAM GEN.: No apparent distress. Alert and oriented. Cachetic HEENT: Head is normocephalic, atraumatic NECK: Supple, no thyromegaly or lymphadenopathy LUNGS: faint end expiratory wheeze heard right upper lobe, diminished airflow throughout HEART: RRR, S1, S2 present. Peripheral pulses intact ABDOMEN: Soft, nontender. Positive bowel sounds. EXTREMITIES: Without any cyanosis. NEUROLOGIC: Normal speech, normal tone PSYCHIATRIC: Normal affect, normal mood. SKIN: No ulcerations Pt is a 62yo CM admitted for COPD exacerbation and weakness 1)COPD exacerbation- Pulmonology was following. Was being treated with IV solumedrol which was transitioned to Prednisone 40mg qday with taper by 10mg every 3 days. Pt started on Levaquin for productive cough 4-5 days prior to admission with yellow/green productive sputum. 2)Hx MAC- pt resumed on home medications of Rifampin and Ethambutol 3)Depression/Anxiety- pt continued on Lexapro 10mg 4)Cardiomyopathy- held Digoxin due to hypotension. ECHO this admission was normal 5)Anemia- mild, no active bleeding 6)PEM- moderate Disposition/Orders: D/C to Home, D/C to Another Facility CONDITION AT DISCHARGE: Improved, Stable Diet: Cardiac Scheduled Albuterol Sulfate (Albuterol Sulfate Conc Neb Soln), 1 VIAL NEB Q4HRS, (Reported ) Azithromycin (Zithromax), 1 PKG PO UD Digoxin (Digoxin), 0.25 MG DAILY, (Reported) Escitalopram Oxalate (Escitalopram Oxalate), 10 MG DAILY, (Reported) Ethambutol Hcl (Ethambutol Hcl), 800 MG DAILY, (Reported) Guaifenesin (Mucinex), 600 MG PO BID, (Reported) Ipratropium/Albuterol Sulfate (Duoneb 0.5-3(2.5) Mg/3 Ml), 3 ML NEB QID, ( Reported) Prednisone (Prednisone), 1 TAB PO DAILY Rifampin (Rifampin), 300 MG BID, (Reported) Temazepam (Temazepam), 1 CAP HS, (Reported) Scheduled PRN Albuterol Sulfate (Proair Hfa Inhaler), 1 PUFF INH PRN Q4HRS PRN for SHORTNESS OF BREATH, (Reported) Benzonatate (Tessalon Perle), 100 MG PO TID PRN for COUGH FOLLOW UP APPOINTMENT: Follow up with PCP within 7-10days of being discharged from SNF Time Spent Total time spent with patient [] minutes for coordination of care, counseling, and education. MARCO MAS MD April 04, 2017 07:53
[2017-04-04] MEDS: methylPREDNISolone SOD SUCC PF 40 MG/ML VIAL. IV SCH (08:09)
[2017-04-04] MEDS: riFAMpin 300 MG CAPSULE. PO SCH (08:10)
[2017-04-04] MEDS: ESCITALOPRAM 10 MG TABLET. PO SCH (08:10)
[2017-04-04] MEDS: ETHAMBUTOL HCL 400 MG TABLET PO SCH (08:10)
[2017-04-04 11:00] VITALS: BP 104/64
--- NOTE | 2017-04-04 13:56 | PDOC ---
PULMONARY PROGRESS NOTES Subjective feels better less cough, sob, no pain Vitals Vital Signs Date Time Temp Pulse Resp B/P (MAP) Pulse Ox O2 Delivery O2 Flow Rate FiO2 04/04/17 11:00 97.7 78 18 104/64 (77) 97 97.7 04/04/17 10:46 Room Air ROS: No Nausea, No Chest Pain, No Abdominal Pain, No Increase Cough General: Alert, No acute distress HEENT: Other Lungs: Other (decrease bs) Cardiovascular: S1, S2 Abdomen: Soft, Non-tender Extremities: No Edema, Other Skin: Warm Medications Active Scripts Medications Dose Route/Sig Days Date Category Dose Instructions Tessalon Perle (Benzonatate) 100 Mg Capsule 100 Mg PO TID PRN 03/26/17 Rx Zithromax (Azithromycin) 250 Mg Tablet 1 Pkg PO UD 03/26/17 Rx Prednisone 50 Mg Tablet 1 Tab PO DAILY 03/26/17 Rx Mucinex (Guaifenesin) 600 Mg Tablet.er 600 Mg PO BID 03/13/17 Reported Albuterol Sulfate Conc Neb Soln (Albuterol Sulfate) 2.5 Mg/0.5 Ml Vial.neb 1 Vial NEB Q4HRS 02/25/17 Reported Proair Hfa Inhaler (Albuterol Sulfate) 8.5 Gm Hfa.aer.ad 1 Puff INH PRN Q4HRS PRN 02/25/17 Reported Duoneb 0.5-3(2.5) Mg/3 Ml (Albuterol/Ipratropium) 3 Ml Ampul.neb 3 Ml NEB QID 02/25/17 Reported Ethambutol Hcl 400 Mg Tablet 800 Mg DAILY 10/22/16 Reported Rifampin 300 Mg Capsule 300 Mg BID 10/22/16 Reported Digoxin 250 Mcg Tablet 0.25 Mg DAILY 10/22/16 Reported Hold for heart rate less than 90 Escitalopram Oxalate 10 Mg Tablet 10 Mg DAILY 10/22/16 Reported Temazepam 15 Mg Capsule 1 Cap HS 10/22/16 Reported Impression . 1. Dyspnea/acute on chronic respiratory failure, I suspect most likely related to mild interstitial edema. Cannot exclude interstitial pneumonia. He does have more prominent interstitial markings on his chest x-ray. 2. History of chronic obstructive pulmonary disease. 3. History of Mycobacterium avium complex infection, currently being treated with rifampin, ethambutol per ID Plan . 1. to [facility] today 2. Sputum for C and S so far no organism 3. P.r.n. oxygen. 4. Continue MAC treatment per ID 5. Follow liver function tests as OP 6. repeat echocardiogram report pending 7. change iv steroids to prednisone 40 mg daily w taper by 10 mg q 3d. discussed w rn, pt ELIJAH VARELA MD April 04, 2017 13:56
[2017-04-04] MEDS ORDERED: IPRATRPIUM/ALBUTEROL 0.5/2.5MG 3 ML NEBU. NEB ONE (14:00)
== END 2017-04-04 14:20 | DRG 189 ==
LOC: ER 14:51 → 6 SOUTH 17:43
PROVIDERS: ADMIT Family Medicine; ATTEND Family Medicine
DX: J96.20 Acute and chronic respiratory failure, unspecified whether with hypoxia or hypercapnia (principal); J44.1 Chronic obstructive pulmonary disease with (acute) exacerbation; E44.0 Moderate protein-calorie malnutrition; I42.9 Cardiomyopathy, unspecified; R64 Cachexia; Z68.1 Body mass index [BMI] 19.9 or less, adult; D64.9 Anemia, unspecified; I95.9 Hypotension, unspecified; F32.9 Major depressive disorder, single episode, unspecified; F41.9 Anxiety disorder, unspecified; Z80.1 Family history of malignant neoplasm of trachea, bronchus and lung; Z80.8 Family history of malignant neoplasm of other organs or systems; Z87.01 Personal history of pneumonia (recurrent); Z87.891 Personal history of nicotine dependence
CPT/HCPCS: 36415; 70450; 71010; 80048; 80053; 83036; 83880; 84484; 85027; 87070; 87205; 93005; 93306; 94250; 94640; 94760; 96374; J2920; J2930; J7040; J7620; 97116; 97530; 99285-25

== ENCOUNTER 2017-04-25 00:44 | Emergency (ER) | payer OTHER ==
[2017-04-25] MEDS ORDERED: IPRATRPIUM/ALBUTEROL 0.5/2.5MG 3 ML NEBU. NEB ONE (01:30)
--- NOTE | 2017-04-25 01:41 | PHYS DOC ---
Past Medical History Past Medical History: COPD, Pneumonia Additional Past Medical Histor: CARDIOMYOPATHY, MAC Past Surgical History: Other Additional Past Surgical Histo: bronchoscopy Alcohol Use: Occasionally Drug Use: Cocaine Adult General Chief Complaint Chief Complaint: SHORTNESS OF BREATH HPI HPI Patient is a 62 year old male with COPD who presents by EMS from nursing facility for dyspnea and cough. States the symptoms feel exactly like his chronic COPD. He became frustrated and called 911 because the nursing facility was not bringing breathing treatment fast enough. He feels much better after getting a neb by EMS. EMS noted wheezing, but now he is clear per EMS. He feels he can still use a breathing treatment. He denies chest pain, fever or chills, hemoptysis, leg pain or swelling, sputum changes. Review of Systems Review of Systems Constitutional: Denies fever or chills [] Eyes: Denies change in visual acuity, redness, or eye pain [] HENT: Denies nasal congestion or sore throat [] Respiratory: Has cough and shortness of breath [] Cardiovascular: No additional information not addressed in HPI [] GI: Denies abdominal pain, nausea, vomiting, bloody stools or diarrhea [] : Denies dysuria or hematuria [] Musculoskeletal: Denies back pain or joint pain [] Integument: Denies rash or skin lesions [] Neurologic: Denies headache, focal weakness or sensory changes [] Endocrine: Denies polyuria or polydipsia [] Current Medications Current Medications Current Medications Medications (Trade) Dose Ordered Sig/Ken Start Time Stop Time Status Last Admin Dose Admin Albuterol/ Ipratropium (Duoneb) 3 ml 1X ONCE 04/25/17 01:30 04/25/17 01:31 DC 04/25/17 01:39 3 ML Allergies Allergies Allergies Coded Allergies Type Severity Reaction Last Updated Verified No Known Drug Allergies 02/02/16 No Physical Exam Physical Exam Constitutional: Well developed, thin, no acute distress, non-toxic appearance. [ ] HENT: Normocephalic, atraumatic, bilateral external ears normal, oropharynx moist, nose normal. [] Eyes: PERRLA, EOMI. [] Neck: Normal range of motion, supple, no stridor. [] Cardiovascular:Heart rate regular rhythm [] Lungs & Thorax: Bilateral breath sounds clear to auscultation, speaking in full sentences [] Abdomen: Bowel sounds normal, soft, no tenderness. [] Skin: Warm, dry, no erythema, no rash. [] Back: Normal range of motion. [] Extremities: No tenderness, ROM intact, no edema. [] Neurologic: Alert and oriented X 3, normal motor function, normal sensory function, no focal deficits noted. [] Psychologic: Affect normal, judgement normal, mood normal. [] Current Patient Data Vital Signs Vital Signs Date Time Temp Pulse Resp B/P (MAP) Pulse Ox O2 Delivery O2 Flow Rate FiO2 04/25/17 01:36 93 Room Air 04/25/17 00:57 98.5 80 22 122/71 (88) 98.5 Course & Med Decision Making Course & Med Decision Making He feels better after neb and is ready to be discharged. Return precautions given. He understands and agrees with plan. He will be transferred back to nursing facility via EMS. Dragon Disclaimer Dragon Disclaimer This electronic medical record was generated, in whole or in part, using a voice recognition dictation system. Departure Departure Impression: Primary Impression: COPD (chronic obstructive pulmonary disease) Disposition: 01 HOME, SELF-CARE Condition: STABLE Referrals: DEBORAH PICKENS MD (PCP) Patient Instructions: Chronic Obstructive Pulmonary Disease, [id number] Additional Instructions: Continue your current medications. Follow-up with your primary care doctor. Return for any concerns. Problem Qualifiers Primary Impression: COPD (chronic obstructive pulmonary disease) COPD type: unspecified COPD Qualified Codes: J44.9 - Chronic obstructive pulmonary disease, unspecified Ruth MYLES MD April 25, 2017 01:41
[2017-04-25 02:00] VITALS: BP 111/65
== END 2017-04-25 02:23 | disposition home or self-care (01) ==
LOC: ER 00:44
DX: J44.9 Chronic obstructive pulmonary disease, unspecified (principal); F14.10 Cocaine abuse, uncomplicated
CPT/HCPCS: 94250; 94640; 99283; J7620

== ENCOUNTER 2017-05-22 09:44 | Inpatient (IN) | payer OTHER ==
[~2017-05-22] VITALS: Ht 175.3 cm; Wt 49.9 kg
[~2017-05-22 09:44] MED LIST changes: -BENZ200C39 PO; +BENZ200C47 PO; -ESCI10TA; +ESCITALOPRAM OX10 MG; -GUAI600T38 PO; +GUAI600T47 PO; -LEVO500T38 PO; +LEVO500T59 PO
[2017-05-22] MEDS ORDERED: MORPHINE SULFATE 4 MG/ML DISP.SYRIN. IV/SQ PRN (10:00)
[2017-05-22] MEDS ORDERED: ASPIRIN 325 MG TABLET PO ONE (10:00)
[2017-05-22] MEDS ORDERED: IPRATRPIUM/ALBUTEROL 0.5/2.5MG 3 ML NEBU. NEB ONE (10:00)
[2017-05-22 10:10] LABS: BASO # 0.1 x10^3/uL (0.0-0.2); BASO % 1 % (0-3); EOS % 8 % (0-3); HEMATOCRIT 41.2 % (39.0-53.0); HEMOGLOBIN 14.3 g/dL (13.0-17.5); LYMPH # 1.2 x10^3/uL (1.0-4.8); LYMPH % 21 % (24-48); MEAN CORPUSCULAR HEMOGLOBIN 32 pg (25-35); MEAN CORPUSCULAR HGB CONC 35 g/dL (31-37); MEAN CORPUSCULAR VOLUME 93 fL (79-100); MONO % 12 % (0-9); NEUT % 58 % (31-73); PLATELET COUNT 283 x10^3/uL (140-400); RED BLOOD COUNT 4.41 x10^6/uL (4.30-5.70); RED CELL DISTRIBUTION WIDTH 13.6 % (11.5-14.5); WHITE BLOOD COUNT 5.7 x10^3/uL (4.0-11.0)
[2017-05-22 10:19] LABS: CREATININE 0.7 mg/dL (0.7-1.3); GFR 113.9; POTASSIUM 4.4 mmol/L (3.5-5.1)
[2017-05-22 10:21] LABS: PROTHROMBIN TIME PATIENT 12.9 SEC (11.7-14.0)
[2017-05-22 10:25] LABS: ALBUMIN 3.5 g/dL (3.4-5.0); ALBUMIN/GLOBULIN RATIO 0.7 (1.0-1.7); TOTAL BILIRUBIN 0.5 mg/dL (0.2-1.0); TOTAL PROTEIN 8.5 g/dL (6.4-8.2)
--- NOTE | 2017-05-22 10:35 | RAD ---
Portable chest, 05/22/2017: History: Chest pain Comparison is made to a study from 03/31/2017. The heart is within normal limits in size. There are emphysematous changes in the lungs. There are unchanged extensive pleural and parenchymal opacities in the left chest with dominant involvement of the upper lobe. There is chronic volume loss. The findings are compatible with scarring. A component of chronic infection cannot be excluded. There are a few scattered parenchymal scars on the right. No new pulmonary abnormality is seen. There is no evidence of pleural fluid or pneumothorax. IMPRESSION: 1. Extensive pleural/parenchymal left chest opacities compatible with scarring. 2. No new abnormality is detected.
--- NOTE | 2017-05-22 10:55 | EKG ---
[facility] [address] [place] [address] Test Date: 2017-05-22 Test Time: 09:55:28 Pat Name: DELFINO LEONARDO Department: Room: Gender: M Stock Controller: : 1955 Requested By: BRYAN LOREDO Order Number: [id number] Reading MD: Measurements Intervals [place] Rate: 84 P: 90 CT: 214 QRS: 84 QRSD: 68 T: 76 QT: 334 QTc: 398 Interpretive Statements SINUS RHYTHM PROLONGED CT INTERVAL RI6.01 Unconfirmed report No previous ECG available for comparison
--- NOTE | 2017-05-22 11:06 | ACF ---
Admit Criteria Forms Admit Criteria Forms Admit Criteria Forms COPD Clinical Indications for Admission to Inpatient Care (Place 'X' for any and all applicable criteria): Admission is indicated for ANY ONE of the following (1)(2)(3): [ ]I. Acute exacerbation by high-risk comorbidity (e.g., pneumonia, dysrhythmia, heart failure, pleural effusion, pneumothorax) or severe underlying COPD (e.g., steroid dependent) [X]II. Inpatient admission required rather than observation care (see Chronic Obstructive Pulmonary Disease: Observation Care) because of ANY ONE of the following: [X]a) New or pre-existing signs or symptoms of COPD (eg, dyspnea or Tachypnea at rest or with minimal activity) that persist despite outpatient and observation care treatment [ ]b) New-onset hypoxemia (room air SaO2 less than 90%, PO2 less than 60 mm Hg (8.0 kPa)) that persists despite outpatient and observation care treatment [ ]c) Worsening of pre-existing hypoxemia (eg, new or increased requirement for supplemental oxygen to maintain oxygenation at baseline level) that persists despite outpatient and observation care treatment, with oxygen treatment needs performable only in acute inpatient setting [ ]d) Hypercarbia (PCO2 greater than 40 mm Hg (5.3 kPa))-induced respiratory acidosis (pH less than 7.35) that persists despite outpatient and observation care treatment [ ]e) Supplemental oxygen or respiratory treatments for over 24 hours that are performable only in acute inpatient setting [ ]f) Chest tube placement with active evacuation (e.g., suction, drainage) (5) [ ]g) Other condition, treatment or monitoring requiring inpatient admission [ ]III. Planned invasive surgical or diagnostic procedures requiring acute- care hospitalization [ ]IV. Acute respiratory failure (e.g., uncompensated hypercarbia, severe hypoxemia) [ ]V. Severe comorbid condition (e.g., severe steroid myopathy, acute vertebral fracture) that has acutely worsened pulmonary function [ ]. Confusion state, lethargy, obtundation, stupor or coma Extended stay beyond goal length of stay may be needed for (31)(32): [ ]a ) Respiratory Failure. [ ]b) Severe or persisting hypoxemia or hypercarbia [ ]c) Severe or persistent dyspnea [ ]d) Comorbidities (e.g. chronic heart failure, atrial fibrillation with rapid response, pneumonia) [ ]e) Malnutrition The original [employer] content created by [facility] has been revised. The portions of the content which have been revised are identified through the use of italic text or in bold, and [facility] has neither reviewed nor approved the modified material. All other unmodified content is copyright [facility]. Please see references footnoted in the original [facility] edition 2016 ANN BOJORQUEZ May 22, 2017 11:06
[2017-05-22] MEDS ORDERED: ACET325T9 PO (13:07)
[2017-05-22] MEDS ORDERED: ACETAMINOPHEN 325 MG TABLET. PO PRN (13:15)
[2017-05-22] MEDS ORDERED: methylPREDNISolone SOD SUCC PF 125 MG/2 ML VIAL. IV ONE (13:15)
[2017-05-22] MEDS ORDERED: ONDANSETRON PF 4 MG/2 ML VIAL. IV PRN (13:15)
[2017-05-22] MEDS ORDERED: NITROGLYCERIN SUBLINGUAL 0.4 MG BOTTLE OF 25. SL PRN (13:15)
--- NOTE | 2017-05-22 14:01 | PDOC2 ---
ELIZA ALVARADO COCOA MILL OPERATOR 05/22/17 1401: CARDIAC CONSULT DATE OF CONSULT Date of Consult DATE: 05/22/17 TIME: 13:59 REASON FOR CONSULT Reason for Consult: Chest pain REFERRING PHYSICIAN Referring Physician: [place] SOURCE Source: Chart review, Patient HISTORY OF PRESENT ILLNESS HISTORY OF PRESENT ILLNESS This is a cachectic 62 yo male admitted for complains of chest pain. Deneis any SOA, palpitations, nausea but verbalized increasing yellow sputum and mid chest pain that is likely multiple pin prick sensation that fans out. No radiating pain to jaw or arms. This is accentuated with coughing, deep breathing and duplicated as well with palpation. He admits of having recently intractable coughing and presnetly he still takes rifampin and ethambutol for his MAC. He recently had pneumonia as well with underlying severe COPD. PAST MEDICAL HISTORY Past Medical History Cardiovascular: PAFIB, CHF. NICM Pulmonary: severe COPD, Cavitary lesion persists in the left apex, MAC, pneumonia CENTRAL NERVOUS SYSTEM: Other (none) GI: No pertinent hx Heme/Onc: No pertinent hx Hepatobiliary: No pertinent hx Psych: No pertinent hx Musculoskeletal: OA Rheumatologic: No pertinent hx Infectious disease: ENT: No pertinent hx Renal/: No pertinent hx Endocrine: No pertinent hx Dermatology: No pertinent hx PAST SURGICAL HISTORY Past Surgical History: Other (bronchoscopy; back surgery x2, hemorrhoidectomy) FAMILY HISTORY Family History Cancer (lung - brother) SOCIAL HISTORY Smoke: No (quit 40 pk yr) ALCOHOL: none Drugs: Other (hx of past cocaine and marijuana) [place]: [place] CURRENT MEDICATIONS CURRENT MEDICATIONS Current Medications Medications (Trade) Dose Ordered Sig/Ken Route PRN Reason Start Time Stop Time Status Last Admin Dose Admin Aspirin (Chadd Aspirin) 325 mg 1X ONCE PO 05/22/17 10:00 05/22/17 10:01 DC 05/22/17 10:31 Albuterol/ Ipratropium (Duoneb) 3 ml 1X ONCE NEB 05/22/17 10:00 05/22/17 10:01 DC 05/22/17 10:12 Morphine Sulfate 4 mg PRN Q15MIN PRN IV/SQ PAIN GREATER THAN 3/10 05/22/17 10:00 05/23/17 09:59 05/22/17 11:15 ALLERGIES ALLERGIES: Coded Allergies: No Known Drug Allergies (Unverified , 02/02/16) ROS Review of System 14 point ROS evaluated with pertinent positives noted per HPI PHYSICAL EXAM General: Alert, Oriented X3, Cooperative, No acute distress, Other (cachectic) HEENT: Atraumatic, Mucous membr. moist/pink Lungs: Other (faint basilar crackles with expiratory wheeze) Heart: Regular rate (SR), Normal S1, Normal S2 Abdomen: Soft, No tenderness Extremities: No cyanosis, No edema Skin: No breakdown, No significant lesion Neuro: Normal speech, Sensation intact Psych/Mental Status: Mental status NL, Mood NL MUSCULOSKELETAL: Osteoarthritic changes both hands VITALS VITALS Vital Signs Date Time Temp Pulse Resp B/P (MAP) Pulse Ox O2 Delivery O2 Flow Rate FiO2 05/22/17 11:15 20 92 Room Air 05/22/17 09:44 98.2 84 127/71 (89) 98.2 LABS Lab: Laboratory Tests Test 05/22/17 09:57 White Blood Count 5.7 x10^3/uL (4.0-11.0) Red Blood Count 4.41 x10^6/uL (4.30-5.70) Hemoglobin 14.3 g/dL (13.0-17.5) Hematocrit 41.2 % (39.0-53.0) Mean Corpuscular Volume 93 fL (79-100) Mean Corpuscular Hemoglobin 32 pg (25-35) Mean Corpuscular Hemoglobin Concent 35 g/dL (31-37) Red Cell Distribution Width 13.6 % (11.5-14.5) Platelet Count 283 x10^3/uL (140-400) Neutrophils (%) (Auto) 58 % (31-73) Lymphocytes (%) (Auto) 21 % (24-48) Monocytes (%) (Auto) 12 % (0-9) Eosinophils (%) (Auto) 8 % (0-3) Basophils (%) (Auto) 1 % (0-3) Neutrophils # (Auto) 3.3 x10^3uL (1.8-7.7) Lymphocytes # (Auto) 1.2 x10^3/uL (1.0-4.8) Monocytes # (Auto) 0.7 x10^3/uL (0.0-1.1) Eosinophils # (Auto) 0.4 x10^3/uL (0.0-0.7) Basophils # (Auto) 0.1 x10^3/uL (0.0-0.2) Prothrombin Time 12.9 SEC (11.7-14.0) Prothromb Time International Ratio 1.0 (0.8-1.1) Activated Partial Thromboplast Time 30 SEC (24-38) Sodium Level 140 mmol/L (136-145) Potassium Level 4.4 mmol/L (3.5-5.1) Chloride Level 101 mmol/L (98-107) Carbon Dioxide Level 31 mmol/L (21-32) Anion Gap 8 (6-14) Blood Urea Nitrogen 12 mg/dL (8-26) Creatinine 0.7 mg/dL (0.7-1.3) Estimated GFR (Cockcroft-Gault) 113.9 BUN/Creatinine Ratio 17 (6-20) Glucose Level 95 mg/dL (70-99) Calcium Level 10.0 mg/dL (8.5-10.1) Total Bilirubin 0.5 mg/dL (0.2-1.0) Aspartate Amino Transf (AST/SGOT) 34 U/L (15-37) Alanine Aminotransferase (ALT/SGPT) 28 U/L (16-63) Alkaline Phosphatase 55 U/L (46-116) Troponin I Quantitative < 0.017 ng/mL (0.000-0.055) IJ-Sgo-M-Type Natriuretic Peptide 196 pg/mL (0-124) Total Protein 8.5 g/dL (6.4-8.2) Albumin 3.5 g/dL (3.4-5.0) Albumin/Globulin Ratio 0.7 (1.0-1.7) ECHOCARDIOGRAM ECHOCARDIOGRAM <Conclusion> The left ventricular systolic function is normal and the ejection fraction is within normal range. EF 55% There is normal LV segmental wall motion. DATE: 04/03/17 1233 STRESS TEST STRESS TEST Conclusion 1. Baseline abnormal EKG but no EKG evidence of stressed induced ischemia. 2. Nuclear imaging shows no reversible ischemia or infarct. 3. Normal left ventricular systolic function with an ejection fraction of 63%. 4. Low risk Lexiscan nuclear stress test. DATE: 09/18/16 1318 ASSESSMENT/PLAN ASSESSMENT/PLAN 1. Atypical chest pain: initial troponin normal, EKG NSR. Noncardiac, MSK ( notable for intractable coughing) with likely neuritis/peripheral neuropathy with ethambutol treatment 2. Hx if NICM: noted with EF of 30-35% with multifactorial component- stress induced (sepsis, cocaine, pneumonia, respiratory failure). MPI unremarkable for ischemia at that time. Follow up TTE recent as above with normal wall motion and EF at 55% 3. Hx of tachyarrhythmia (08/2016): notable for brief episode of PAFIB in the setting of above factors. This is likely lone occurrence at that time 4. Hx of DAVID cavitary lesions with MAC and recent pneumonia 5. Severe COPD Recommendation 1. Advised to resume ECASA. No ectopies, no AV alejandrina blocking agents. BP at low end. Continue with tele monitoring. 2. No further cardiac workup. Lidocaine transdermal an option, will defer to PCP. 3. Follow pulmonary recommendations. Problems: KYA BOYD MD 05/23/17 0819: CARDIAC CONSULT ALLERGIES ALLERGIES: Coded Allergies: No Known Drug Allergies (Unverified , 02/02/16) ASSESSMENT/PLAN ASSESSMENT/PLAN Pt. seen and examined on 05/22/2017. Agree with above CANDY FEEDER note. 62 y.o male with prior MAC and PNA presenting with non-cardiac chest pain. Normal cardiac exam labs/ekg and previous w/u reviewed. no further testing. supportive care for now. thanks for allowing us to participate in his care. Problems: ELIZA ALVARADO APRN May 22, 2017 14:01 KYA BOYD MD May 23, 2017 08:19
[2017-05-22 14:30] VITALS: BP 99/75
--- NOTE | 2017-05-22 14:35 | PHYS DOC ---
Past Medical History Past Medical History: COPD, Pneumonia Additional Past Medical Histor: CARDIOMYOPATHY, MAC Past Surgical History: Other Additional Past Surgical Histo: bronchoscopy Alcohol Use: Occasionally Drug Use: Cocaine Adult General Chief Complaint Chief Complaint: CHEST PAIN HPI HPI Patient is a 62 year old male who presents with chest pain. He reports three- day history of gradually worsening substernal chest tightness which is nonradiating, worse with deep breathing and coughing. Reports shortness of breath and cough productive of yellow sputum. Denies nausea or diaphoresis. Denies fevers or chills, lower extremity pain or swelling. Reports history of COPD but chest pain is unusual for him with exacerbation. He has history of multiple previous hospitalizations for COPD. He is a former smoker. History of cardiomyopathy but denies CAD or cardiac stents. PCP is Dr. Royla. Review of Systems Review of Systems Constitutional: Denies fever or chills Eyes: Denies change in visual acuity HENT: Denies nasal congestion or sore throat Respiratory: Reports cough and shortness of breath Cardiovascular: Reports chest pain, denies edema GI: Denies abdominal pain, nausea, vomiting, or diarrhea Musculoskeletal: Denies back pain or joint pain Integument: Denies rash or skin lesions Neurologic: Denies headache, focal weakness or sensory changes Current Medications Current Medications Current Medications Medications (Trade) Dose Ordered Sig/Ken Start Time Stop Time Status Last Admin Dose Admin Albuterol/ Ipratropium (Duoneb) 3 ml 1X ONCE 05/22/17 10:00 05/22/17 10:01 DC 05/22/17 10:12 3 ML Aspirin (Chadd Aspirin) 325 mg 1X ONCE 05/22/17 10:00 05/22/17 10:01 DC 05/22/17 10:31 325 MG Morphine Sulfate 4 mg PRN Q15MIN PRN 05/22/17 10:00 05/23/17 09:59 05/22/17 11:15 4 MG Allergies Allergies Allergies Coded Allergies Type Severity Reaction Last Updated Verified No Known Drug Allergies 02/02/16 No Physical Exam Physical Exam Constitutional: Well developed, well nourished, no acute distress, non-toxic appearance. HENT: Normocephalic, atraumatic, bilateral external ears normal, oropharynx moist, nose normal. Eyes: conjunctiva normal, no discharge. Neck: supple, no stridor. Cardiovascular: RRR, no murmurs, no edema. Lungs & Thorax: Tight, coarse, expiratory wheezes present, speaking in short sentences, no reproducible tenderness with palpation of her anterior chest wall. Abdomen: soft, nontender, nondistended. Skin: Warm, dry, no erythema, no rash. Back: No tenderness. Extremities: No tenderness, no edema. No calf tenderness or swelling Neurologic: Alert and oriented X 3, no focal deficits noted. Psychologic: Affect normal, judgement normal, mood normal. Current Patient Data Vital Signs Vital Signs Date Time Temp Pulse Resp B/P (MAP) Pulse Ox O2 Delivery O2 Flow Rate FiO2 05/22/17 10:29 78 20 106/65 (79) 93 Room Air 05/22/17 09:44 98.2 98.2 Lab Values Laboratory Tests Test 05/22/17 09:57 White Blood Count 5.7 x10^3/uL (4.0-11.0) Red Blood Count 4.41 x10^6/uL (4.30-5.70) Hemoglobin 14.3 g/dL (13.0-17.5) Hematocrit 41.2 % (39.0-53.0) Mean Corpuscular Volume 93 fL (79-100) Mean Corpuscular Hemoglobin 32 pg (25-35) Mean Corpuscular Hemoglobin Concent 35 g/dL (31-37) Red Cell Distribution Width 13.6 % (11.5-14.5) Platelet Count 283 x10^3/uL (140-400) Neutrophils (%) (Auto) 58 % (31-73) Lymphocytes (%) (Auto) 21 % (24-48) L Monocytes (%) (Auto) 12 % (0-9) H Eosinophils (%) (Auto) 8 % (0-3) H Basophils (%) (Auto) 1 % (0-3) Neutrophils # (Auto) 3.3 x10^3uL (1.8-7.7) Lymphocytes # (Auto) 1.2 x10^3/uL (1.0-4.8) Monocytes # (Auto) 0.7 x10^3/uL (0.0-1.1) Eosinophils # (Auto) 0.4 x10^3/uL (0.0-0.7) Basophils # (Auto) 0.1 x10^3/uL (0.0-0.2) Prothrombin Time 12.9 SEC (11.7-14.0) Prothrombin Time INR 1.0 (0.8-1.1) PTT 30 SEC (24-38) Sodium Level 140 mmol/L (136-145) Potassium Level 4.4 mmol/L (3.5-5.1) Chloride Level 101 mmol/L (98-107) Carbon Dioxide Level 31 mmol/L (21-32) Anion Gap 8 (6-14) Blood Urea Nitrogen 12 mg/dL (8-26) Creatinine 0.7 mg/dL (0.7-1.3) Estimated GFR (Cockcroft-Gault) 113.9 BUN/Creatinine Ratio 17 (6-20) Glucose Level 95 mg/dL (70-99) Calcium Level 10.0 mg/dL (8.5-10.1) Total Bilirubin 0.5 mg/dL (0.2-1.0) Aspartate Amino Transferase (AST) 34 U/L (15-37) Alanine Aminotransferase (ALT) 28 U/L (16-63) Alkaline Phosphatase 55 U/L (46-116) Troponin I Quantitative < 0.017 ng/mL (0.000-0.055) AR-Vfo-R-Type Natriuretic Peptide 196 pg/mL (0-124) H Total Protein 8.5 g/dL (6.4-8.2) H Albumin 3.5 g/dL (3.4-5.0) Albumin/Globulin Ratio 0.7 (1.0-1.7) L Laboratory Tests 05/22/17 09:57 Laboratory Tests 05/22/17 09:57 EKG EKG Interpreted by me: Normal sinus rhythm rate 84, no acute ST or T wave changes, MS prolonged 214 ms, no ectopy. [] Radiology/Procedures Radiology/Procedures PROCEDURE: CHEST AP ONLY Portable chest, 05/22/2017: History: Chest pain Comparison is made to a study from 03/31/2017. The heart is within normal limits in size. There are emphysematous changes in the lungs. There are unchanged extensive pleural and parenchymal opacities in the left chest with dominant involvement of the upper lobe. There is chronic volume loss. The findings are compatible with scarring. A component of chronic infection cannot be excluded. There are a few scattered parenchymal scars on the right. No new pulmonary abnormality is seen. There is no evidence of pleural fluid or pneumothorax. IMPRESSION: 1. Extensive pleural/parenchymal left chest opacities compatible with scarring. 2. No new abnormality is detected. DICTATED and SIGNED BY: SAY WEEMS MD DATE: 05/22/17 1028[] Course & Med Decision Making Course & Med Decision Making Pertinent Labs and Imaging studies reviewed. (See chart for details) The patient presents with chest pain and COPD. Gave aspirin upon arrival. Administered morphine for pain as well as DuoNeb, albuterol, Solu-Medrol. Symptoms improved. Recommended admission to hospital for further evaluation and treatment. Likely related to COPD but would like to rule out acute cardiac process. Discussed with patient who agrees with plan of care. Discussed with Dr. Gilbert who agrees to admit to inpatient status with pulmonary consult and serial cardiac enzymes. The patient is admitted in stable condition. Dragon Disclaimer Dragon Disclaimer This electronic medical record was generated, in whole or in part, using a voice recognition dictation system. Departure Departure Impression: Primary Impression: COPD (chronic obstructive pulmonary disease) Additional Impression: Chest pain Disposition: ADMITTED INPATIENT Admitting Physician: Shari Royal Condition: STABLE Referrals: DEBORAH PICKENS MD (PCP) Problem Qualifiers BRYAN LOREDO MD May 22, 2017 14:35
[2017-05-22] MEDS: MORPHINE SULFATE 2 MG/ML DISP.SYRIN. IV PRN ×2 (15:19→21:13)
[2017-05-22] MEDS: IPRATRPIUM/ALBUTEROL 0.5/2.5MG 3 ML NEBU. NEB SCH ×2 (16:01→20:00)
--- NOTE | 2017-05-22 16:09 | PDOC ---
PULMONARY PROGRESS NOTES Vitals Vital Signs Date Time Temp Pulse Resp B/P (MAP) Pulse Ox O2 Delivery O2 Flow Rate FiO2 05/22/17 16:03 Room Air 05/22/17 15:19 20 90 05/22/17 14:30 98.0 78 99/75 (83) 98.0 General: Alert, No acute distress HEENT: Other Lungs: Other Cardiovascular: S1, S2 Abdomen: Soft, Non-tender Extremities: No Edema, Other Labs Laboratory Tests Test 05/22/17 09:57 White Blood Count 5.7 x10^3/uL (4.0-11.0) Red Blood Count 4.41 x10^6/uL (4.30-5.70) Hemoglobin 14.3 g/dL (13.0-17.5) Hematocrit 41.2 % (39.0-53.0) Mean Corpuscular Volume 93 fL (79-100) Mean Corpuscular Hemoglobin 32 pg (25-35) Mean Corpuscular Hemoglobin Concent 35 g/dL (31-37) Red Cell Distribution Width 13.6 % (11.5-14.5) Platelet Count 283 x10^3/uL (140-400) Neutrophils (%) (Auto) 58 % (31-73) Lymphocytes (%) (Auto) 21 % (24-48) Monocytes (%) (Auto) 12 % (0-9) Eosinophils (%) (Auto) 8 % (0-3) Basophils (%) (Auto) 1 % (0-3) Neutrophils # (Auto) 3.3 x10^3uL (1.8-7.7) Lymphocytes # (Auto) 1.2 x10^3/uL (1.0-4.8) Monocytes # (Auto) 0.7 x10^3/uL (0.0-1.1) Eosinophils # (Auto) 0.4 x10^3/uL (0.0-0.7) Basophils # (Auto) 0.1 x10^3/uL (0.0-0.2) Prothrombin Time 12.9 SEC (11.7-14.0) Prothromb Time International Ratio 1.0 (0.8-1.1) Activated Partial Thromboplast Time 30 SEC (24-38) Sodium Level 140 mmol/L (136-145) Potassium Level 4.4 mmol/L (3.5-5.1) Chloride Level 101 mmol/L (98-107) Carbon Dioxide Level 31 mmol/L (21-32) Anion Gap 8 (6-14) Blood Urea Nitrogen 12 mg/dL (8-26) Creatinine 0.7 mg/dL (0.7-1.3) Estimated GFR (Cockcroft-Gault) 113.9 BUN/Creatinine Ratio 17 (6-20) Glucose Level 95 mg/dL (70-99) Calcium Level 10.0 mg/dL (8.5-10.1) Total Bilirubin 0.5 mg/dL (0.2-1.0) Aspartate Amino Transf (AST/SGOT) 34 U/L (15-37) Alanine Aminotransferase (ALT/SGPT) 28 U/L (16-63) Alkaline Phosphatase 55 U/L (46-116) Troponin I Quantitative < 0.017 ng/mL (0.000-0.055) EI-Slo-N-Type Natriuretic Peptide 196 pg/mL (0-124) Total Protein 8.5 g/dL (6.4-8.2) Albumin 3.5 g/dL (3.4-5.0) Albumin/Globulin Ratio 0.7 (1.0-1.7) Laboratory Tests Test 05/22/17 09:57 White Blood Count 5.7 x10^3/uL (4.0-11.0) Red Blood Count 4.41 x10^6/uL (4.30-5.70) Hemoglobin 14.3 g/dL (13.0-17.5) Hematocrit 41.2 % (39.0-53.0) Mean Corpuscular Volume 93 fL (79-100) Mean Corpuscular Hemoglobin 32 pg (25-35) Mean Corpuscular Hemoglobin Concent 35 g/dL (31-37) Red Cell Distribution Width 13.6 % (11.5-14.5) Platelet Count 283 x10^3/uL (140-400) Neutrophils (%) (Auto) 58 % (31-73) Lymphocytes (%) (Auto) 21 % (24-48) Monocytes (%) (Auto) 12 % (0-9) Eosinophils (%) (Auto) 8 % (0-3) Basophils (%) (Auto) 1 % (0-3) Neutrophils # (Auto) 3.3 x10^3uL (1.8-7.7) Lymphocytes # (Auto) 1.2 x10^3/uL (1.0-4.8) Monocytes # (Auto) 0.7 x10^3/uL (0.0-1.1) Eosinophils # (Auto) 0.4 x10^3/uL (0.0-0.7) Basophils # (Auto) 0.1 x10^3/uL (0.0-0.2) Prothrombin Time 12.9 SEC (11.7-14.0) Prothromb Time International Ratio 1.0 (0.8-1.1) Activated Partial Thromboplast Time 30 SEC (24-38) Sodium Level 140 mmol/L (136-145) Potassium Level 4.4 mmol/L (3.5-5.1) Chloride Level 101 mmol/L (98-107) Carbon Dioxide Level 31 mmol/L (21-32) Anion Gap 8 (6-14) Blood Urea Nitrogen 12 mg/dL (8-26) Creatinine 0.7 mg/dL (0.7-1.3) Estimated GFR (Cockcroft-Gault) 113.9 BUN/Creatinine Ratio 17 (6-20) Glucose Level 95 mg/dL (70-99) Calcium Level 10.0 mg/dL (8.5-10.1) Total Bilirubin 0.5 mg/dL (0.2-1.0) Aspartate Amino Transf (AST/SGOT) 34 U/L (15-37) Alanine Aminotransferase (ALT/SGPT) 28 U/L (16-63) Alkaline Phosphatase 55 U/L (46-116) Troponin I Quantitative < 0.017 ng/mL (0.000-0.055) ME-Pjf-W-Type Natriuretic Peptide 196 pg/mL (0-124) Total Protein 8.5 g/dL (6.4-8.2) Albumin 3.5 g/dL (3.4-5.0) Albumin/Globulin Ratio 0.7 (1.0-1.7) Medications Active Scripts Medications Dose Route/Sig Max Daily Dose Days Date Category Tylenol (Acetaminophen) 325 Mg Tablet 2 Tab PO PRN Q4HRS 05/22/17 Reported Tessalon Perle (Benzonatate) 100 Mg Capsule 100 Mg PO TID PRN 03/26/17 Rx Albuterol Sulfate Conc Neb Soln (Albuterol Sulfate) 2.5 Mg/0.5 Ml Vial.neb 1 Vial NEB Q4HRS 02/25/17 Reported Proair Hfa Inhaler (Albuterol Sulfate) 8.5 Gm Hfa.aer.ad 1 Puff INH PRN Q4HRS PRN 02/25/17 Reported Duoneb 0.5-3(2.5) Mg/3 Ml (Albuterol/Ipratropium) 3 Ml Ampul.neb 3 Ml NEB QID 02/25/17 Reported Ethambutol Hcl 400 Mg Tablet 800 Mg DAILY 10/22/16 Reported Rifampin 300 Mg Capsule 300 Mg BID 10/22/16 Reported Escitalopram Oxalate 10 Mg Tablet 10 Mg DAILY 10/22/16 Reported Temazepam 15 Mg Capsule 1 Cap HS 10/22/16 Reported Impression . FULL NOTE DICTATED THANKS AECOPD CHEST PAIN SEC TO COSTOCHONDRITIS WARNER SAUNDERS MD May 22, 2017 16:09
[2017-05-22] MEDS: DOXYCYCLINE HYCLATE 100 MG TABLET PO SCH ×2 (17:09→21:13)
[2017-05-22] MEDS: BENZONATATE 100 MG CAPSULE. PO SCH ×2 (17:09→21:13)
[2017-05-22 19:00] VITALS: BP 98/68
[2017-05-22] MEDS ORDERED: TEMAZEPAM 15 MG CAPSULE PO PRN (22:45)
[2017-05-22 23:00] VITALS: BP 95/65
[2017-05-23] MEDS: ALBUTEROL SULFATE 2.5 MG/3 ML NEBU. NEB PRN ×2 (00:19→23:35)
[2017-05-23 03:00] VITALS: BP 105/59
[2017-05-23 05:41] LABS: BASO % 1 % (0-3); EOS % 1 % (0-3); HEMATOCRIT 39.3 % (39.0-53.0); HEMOGLOBIN 12.9 g/dL (13.0-17.5); LYMPH # 0.4 x10^3/uL (1.0-4.8); LYMPH % 10 % (24-48); MEAN CORPUSCULAR HEMOGLOBIN 32 pg (25-35); MEAN CORPUSCULAR HGB CONC 33 g/dL (31-37); MEAN CORPUSCULAR VOLUME 96 fL (79-100); MONO % 2 % (0-9); NEUT % 86 % (31-73); PLATELET COUNT 269 x10^3/uL (140-400); RED CELL DISTRIBUTION WIDTH 13.6 % (11.5-14.5)
[2017-05-23 06:18] LABS: PLT ESTIMATE ADEQUATE (ADEQUATE)
[2017-05-23 06:53] LABS: CALCIUM 9.5 mg/dL (8.5-10.1); CREATININE 1.1 mg/dL (0.7-1.3); GFR 67.6; POTASSIUM 4.4 mmol/L (3.5-5.1)
[2017-05-23 07:00] VITALS: BP 103/63
[2017-05-23] MEDS: IPRATRPIUM/ALBUTEROL 0.5/2.5MG 3 ML NEBU. NEB SCH ×4 (07:39→19:06)
--- NOTE | 2017-05-23 08:19 | CONS ---
DATE OF CONSULTATION: 05/22/2017 ATTENDING PHYSICIAN: Shari Royal MD. [id number] DEVELOPER PHYSICIAN: Warner Saunders MD REASON FOR CONSULTATION: The patient seen in pulmonary consultation at the request of Dr. Royal for acute chest pain and increasing shortness of breath. HISTORY OF PRESENT ILLNESS: The patient is a 62-year-old well known to me from previous hospitalization. He has severe COPD with an FEV1 PVC of less than 1 liter. He also has had previous weight loss, bilateral pulmonary infiltrates, been treated for Nontuberculous Mycobacterium with three drug regimen. The patient presents today with increasing shortness of breath. He was also having some chest pain, cough, productive of yellow sputum. No fever or chills. The patient was having increasing shortness of breath along with chest pain. He was transferred to the Emergency Department and was admitted. MEDICATIONS: His medication list from home included ____, ethambutol and nebulized treatments. PAST MEDICAL HISTORY: 1. Nontuberculous Mycobacterium. 2. Severe COPD. 3. Chronic bronchitis. 4. Anxiety disorder, nonspecific. PAST SURGICAL HISTORY: Previous bronchoscopy. ALLERGIES: No known drug allergies. SOCIAL HISTORY: The patient denies any current use of tobacco or alcohol. REVIEW OF SYSTEMS: As indicated above, otherwise, a 10-point system was reviewed and negative. FAMILY HISTORY: No family history of early lung disorders. PHYSICAL EXAMINATION: GENERAL: The patient was in no significant respiratory distress. VITAL SIGNS: Currently on room air saturation 90-94%. HEENT: Eyes, the sclerae were nonicteric. NECK: Jugular venous distention was not elevated. No lymphadenopathy. CHEST: Full expansion. LUNGS: Expiratory wheeze with some rhonchi. CARDIOVASCULAR: Regular rate and rhythm with S1, S2, no S3. ABDOMEN: Soft, nontender, nondistended. EXTREMITIES: No clubbing, cyanosis or edema. NEUROLOGIC: The patient was awake, alert, following commands. A detailed neuro exam was not performed. LABORATORY DATA: Reviewed. White count was normal. Hemoglobin and hematocrit were noted. Electrolytes were noted. INR was 1.0. IMAGING STUDIES: Chest x-ray, no significant change. IMPRESSION: 1. Acute exacerbation of chronic obstructive pulmonary disease. 2. Chest pain, suspect secondary to costochondritis, Cardiology has been consulted. 3. History of nonischemic cardiomyopathy, ejection fraction of 30-35%. 4. Severe chronic obstructive pulmonary disease. PLAN: 1. Continue steroids. 2. Doxycycline for atypical coverage. 3. Nebulized treatments. 4. Follow Cardiology input. I do appreciate the privilege in sharing in patient's care. WARNER SAUNDERS MD DR: POOJA/veronica JOB#: [id number] / [id number]
--- NOTE | 2017-05-23 08:49 | PDOC ---
PULMONARY PROGRESS NOTES Subjective pt feels better less soa and cough Vitals Vital Signs Date Time Temp Pulse Resp B/P (MAP) Pulse Ox O2 Delivery O2 Flow Rate FiO2 05/23/17 07:40 95 Room Air 05/23/17 07:00 97.5 74 18 103/63 (76) 97.5 ROS: No Nausea, No Chest Pain, No Abdominal Pain, No Increase Cough General: Alert, No acute distress HEENT: Other Lungs: Clear Cardiovascular: S1, S2 Abdomen: Soft, Non-tender Neuro Exam: Alert Extremities: No Edema, Other Skin: Warm Labs Laboratory Tests Test 05/22/17 09:57 05/22/17 16:12 05/22/17 20:20 05/23/17 04:00 White Blood Count 5.7 x10^3/uL (4.0-11.0) Red Blood Count 4.41 x10^6/uL (4.30-5.70) Hemoglobin 14.3 g/dL (13.0-17.5) Hematocrit 41.2 % (39.0-53.0) Mean Corpuscular Volume 93 fL (79-100) Mean Corpuscular Hemoglobin 32 pg (25-35) Mean Corpuscular Hemoglobin Concent 35 g/dL (31-37) Red Cell Distribution Width 13.6 % (11.5-14.5) Platelet Count 283 x10^3/uL (140-400) Neutrophils (%) (Auto) 58 % (31-73) Lymphocytes (%) (Auto) 21 % (24-48) Monocytes (%) (Auto) 12 % (0-9) Eosinophils (%) (Auto) 8 % (0-3) Basophils (%) (Auto) 1 % (0-3) Neutrophils # (Auto) 3.3 x10^3uL (1.8-7.7) Lymphocytes # (Auto) 1.2 x10^3/uL (1.0-4.8) Monocytes # (Auto) 0.7 x10^3/uL (0.0-1.1) Eosinophils # (Auto) 0.4 x10^3/uL (0.0-0.7) Basophils # (Auto) 0.1 x10^3/uL (0.0-0.2) Prothrombin Time 12.9 SEC (11.7-14.0) Prothromb Time International Ratio 1.0 (0.8-1.1) Activated Partial Thromboplast Time 30 SEC (24-38) Sodium Level 140 mmol/L (136-145) Potassium Level 4.4 mmol/L (3.5-5.1) Chloride Level 101 mmol/L (98-107) Carbon Dioxide Level 31 mmol/L (21-32) Anion Gap 8 (6-14) Blood Urea Nitrogen 12 mg/dL (8-26) Creatinine 0.7 mg/dL (0.7-1.3) Estimated GFR (Cockcroft-Gault) 113.9 BUN/Creatinine Ratio 17 (6-20) Glucose Level 95 mg/dL (70-99) Calcium Level 10.0 mg/dL (8.5-10.1) Total Bilirubin 0.5 mg/dL (0.2-1.0) Aspartate Amino Transf (AST/SGOT) 34 U/L (15-37) Alanine Aminotransferase (ALT/SGPT) 28 U/L (16-63) Alkaline Phosphatase 55 U/L (46-116) Troponin I Quantitative < 0.017 ng/mL (0.000-0.055) < 0.017 ng/mL (0.000-0.055) < 0.017 ng/mL (0.000-0.055) KW-Vic-U-Type Natriuretic Peptide 196 pg/mL (0-124) Total Protein 8.5 g/dL (6.4-8.2) Albumin 3.5 g/dL (3.4-5.0) Albumin/Globulin Ratio 0.7 (1.0-1.7) Nasal Screen MRSA (PCR) Negative (Negative) Test 05/23/17 04:30 White Blood Count 4.0 x10^3/uL (4.0-11.0) Red Blood Count 4.10 x10^6/uL (4.30-5.70) Hemoglobin 12.9 g/dL (13.0-17.5) Hematocrit 39.3 % (39.0-53.0) Mean Corpuscular Volume 96 fL (79-100) Mean Corpuscular Hemoglobin 32 pg (25-35) Mean Corpuscular Hemoglobin Concent 33 g/dL (31-37) Red Cell Distribution Width 13.6 % (11.5-14.5) Platelet Count 269 x10^3/uL (140-400) Neutrophils (%) (Auto) 86 % (31-73) Lymphocytes (%) (Auto) 10 % (24-48) Monocytes (%) (Auto) 2 % (0-9) Eosinophils (%) (Auto) 1 % (0-3) Basophils (%) (Auto) 1 % (0-3) Neutrophils # (Auto) 3.4 x10^3uL (1.8-7.7) Lymphocytes # (Auto) 0.4 x10^3/uL (1.0-4.8) Monocytes # (Auto) 0.1 x10^3/uL (0.0-1.1) Eosinophils # (Auto) 0.0 x10^3/uL (0.0-0.7) Basophils # (Auto) 0.0 x10^3/uL (0.0-0.2) Segmented Neutrophils % 89 % (35-66) Lymphocytes % 7 % (24-48) Monocytes % 4 % (0-10) Platelet Estimate Adequate (ADEQUATE) Sodium Level 140 mmol/L (136-145) Potassium Level 4.4 mmol/L (3.5-5.1) Chloride Level 102 mmol/L (98-107) Carbon Dioxide Level 29 mmol/L (21-32) Anion Gap 9 (6-14) Blood Urea Nitrogen 18 mg/dL (8-26) Creatinine 1.1 mg/dL (0.7-1.3) Estimated GFR (Cockcroft-Gault) 67.6 Glucose Level 155 mg/dL (70-99) Calcium Level 9.5 mg/dL (8.5-10.1) Laboratory Tests Test 05/22/17 09:57 05/22/17 16:12 05/22/17 20:20 05/23/17 04:00 White Blood Count 5.7 x10^3/uL (4.0-11.0) Red Blood Count 4.41 x10^6/uL (4.30-5.70) Hemoglobin 14.3 g/dL (13.0-17.5) Hematocrit 41.2 % (39.0-53.0) Mean Corpuscular Volume 93 fL (79-100) Mean Corpuscular Hemoglobin 32 pg (25-35) Mean Corpuscular Hemoglobin Concent 35 g/dL (31-37) Red Cell Distribution Width 13.6 % (11.5-14.5) Platelet Count 283 x10^3/uL (140-400) Neutrophils (%) (Auto) 58 % (31-73) Lymphocytes (%) (Auto) 21 % (24-48) Monocytes (%) (Auto) 12 % (0-9) Eosinophils (%) (Auto) 8 % (0-3) Basophils (%) (Auto) 1 % (0-3) Neutrophils # (Auto) 3.3 x10^3uL (1.8-7.7) Lymphocytes # (Auto) 1.2 x10^3/uL (1.0-4.8) Monocytes # (Auto) 0.7 x10^3/uL (0.0-1.1) Eosinophils # (Auto) 0.4 x10^3/uL (0.0-0.7) Basophils # (Auto) 0.1 x10^3/uL (0.0-0.2) Prothrombin Time 12.9 SEC (11.7-14.0) Prothromb Time International Ratio 1.0 (0.8-1.1) Activated Partial Thromboplast Time 30 SEC (24-38) Sodium Level 140 mmol/L (136-145) Potassium Level 4.4 mmol/L (3.5-5.1) Chloride Level 101 mmol/L (98-107) Carbon Dioxide Level 31 mmol/L (21-32) Anion Gap 8 (6-14) Blood Urea Nitrogen 12 mg/dL (8-26) Creatinine 0.7 mg/dL (0.7-1.3) Estimated GFR (Cockcroft-Gault) 113.9 BUN/Creatinine Ratio 17 (6-20) Glucose Level 95 mg/dL (70-99) Calcium Level 10.0 mg/dL (8.5-10.1) Total Bilirubin 0.5 mg/dL (0.2-1.0) Aspartate Amino Transf (AST/SGOT) 34 U/L (15-37) Alanine Aminotransferase (ALT/SGPT) 28 U/L (16-63) Alkaline Phosphatase 55 U/L (46-116) Troponin I Quantitative < 0.017 ng/mL (0.000-0.055) < 0.017 ng/mL (0.000-0.055) < 0.017 ng/mL (0.000-0.055) XB-Srr-L-Type Natriuretic Peptide 196 pg/mL (0-124) Total Protein 8.5 g/dL (6.4-8.2) Albumin 3.5 g/dL (3.4-5.0) Albumin/Globulin Ratio 0.7 (1.0-1.7) Nasal Screen MRSA (PCR) Negative (Negative) Test 05/23/17 04:30 White Blood Count 4.0 x10^3/uL (4.0-11.0) Red Blood Count 4.10 x10^6/uL (4.30-5.70) Hemoglobin 12.9 g/dL (13.0-17.5) Hematocrit 39.3 % (39.0-53.0) Mean Corpuscular Volume 96 fL (79-100) Mean Corpuscular Hemoglobin 32 pg (25-35) Mean Corpuscular Hemoglobin Concent 33 g/dL (31-37) Red Cell Distribution Width 13.6 % (11.5-14.5) Platelet Count 269 x10^3/uL (140-400) Neutrophils (%) (Auto) 86 % (31-73) Lymphocytes (%) (Auto) 10 % (24-48) Monocytes (%) (Auto) 2 % (0-9) Eosinophils (%) (Auto) 1 % (0-3) Basophils (%) (Auto) 1 % (0-3) Neutrophils # (Auto) 3.4 x10^3uL (1.8-7.7) Lymphocytes # (Auto) 0.4 x10^3/uL (1.0-4.8) Monocytes # (Auto) 0.1 x10^3/uL (0.0-1.1) Eosinophils # (Auto) 0.0 x10^3/uL (0.0-0.7) Basophils # (Auto) 0.0 x10^3/uL (0.0-0.2) Segmented Neutrophils % 89 % (35-66) Lymphocytes % 7 % (24-48) Monocytes % 4 % (0-10) Platelet Estimate Adequate (ADEQUATE) Sodium Level 140 mmol/L (136-145) Potassium Level 4.4 mmol/L (3.5-5.1) Chloride Level 102 mmol/L (98-107) Carbon Dioxide Level 29 mmol/L (21-32) Anion Gap 9 (6-14) Blood Urea Nitrogen 18 mg/dL (8-26) Creatinine 1.1 mg/dL (0.7-1.3) Estimated GFR (Cockcroft-Gault) 67.6 Glucose Level 155 mg/dL (70-99) Calcium Level 9.5 mg/dL (8.5-10.1) Medications Active Scripts Medications Dose Route/Sig Max Daily Dose Days Date Category Tylenol (Acetaminophen) 325 Mg Tablet 2 Tab PO PRN Q4HRS 05/22/17 Reported Tessalon Perle (Benzonatate) 100 Mg Capsule 100 Mg PO TID PRN 03/26/17 Rx Albuterol Sulfate Conc Neb Soln (Albuterol Sulfate) 2.5 Mg/0.5 Ml Vial.neb 1 Vial NEB Q4HRS 02/25/17 Reported Proair Hfa Inhaler (Albuterol Sulfate) 8.5 Gm Hfa.aer.ad 1 Puff INH PRN Q4HRS PRN 02/25/17 Reported Duoneb 0.5-3(2.5) Mg/3 Ml (Albuterol/Ipratropium) 3 Ml Ampul.neb 3 Ml NEB QID 02/25/17 Reported Ethambutol Hcl 400 Mg Tablet 800 Mg DAILY 10/22/16 Reported Rifampin 300 Mg Capsule 300 Mg BID 10/22/16 Reported Escitalopram Oxalate 10 Mg Tablet 10 Mg DAILY 10/22/16 Reported Temazepam 15 Mg Capsule 1 Cap HS 10/22/16 Reported Impression . IMPRESSION: 1. Acute exacerbation of chronic obstructive pulmonary disease. 2. Chest pain, suspect secondary to costochondritis, Cardiology has been consulted. 3. History of nonischemic cardiomyopathy, ejection fraction of 30-35%. 4. Severe chronic obstructive pulmonary disease. Plan . pain management f per PCP continue the same 1. Continue steroids. 2. Doxycycline for atypical coverage. 3. Nebulized treatments. 4. Follow Cardiology input. WARNER SAUNDERS MD May 23, 2017 08:49
[2017-05-23] MEDS: predniSONE 20 MG TABLET PO SCH (09:10)
[2017-05-23] MEDS: ASPIRIN ENTERIC COATED 81 MG TABLET.DR. PO SCH (09:10)
[2017-05-23] MEDS: BENZONATATE 100 MG CAPSULE. PO SCH ×3 (09:10→20:55)
[2017-05-23] MEDS: DOXYCYCLINE HYCLATE 100 MG TABLET PO SCH ×2 (09:11→20:53)
[2017-05-23] MEDS: MORPHINE SULFATE 2 MG/ML DISP.SYRIN. IV PRN (09:12)
[2017-05-23 11:00] VITALS: BP 84/57
[2017-05-23] MEDS ORDERED: NON FORMULARY ITEM (Albuterol Sulfate (Proair Hfa Inhaler) 1 PUFF) INH PRN (11:00)
[2017-05-23] MEDS ORDERED: BENZONATATE 100 MG CAPSULE. PO PRN (11:00)
[2017-05-23] MEDS ORDERED: ACETAMINOPHEN 325 MG TABLET. PO PRN (11:00)
[2017-05-23] MEDS: ESCITALOPRAM 10 MG TABLET. PO SCH (11:39)
[2017-05-23] MEDS: riFAMpin 300 MG CAPSULE. PO SCH ×2 (11:39→20:54)
[2017-05-23] MEDS: LIDOCAINE (700MG/PATCH) PATCH. TD SCH (11:40)
[2017-05-23] MEDS ORDERED: NON FORMULARY ITEM (Albuterol Sulfate (Albuterol Sulfate Conc Neb Soln) 1 VIAL) NEB SCH (12:00)
[2017-05-23] MEDS: ETHAMBUTOL HCL 400 MG TABLET PO SCH (12:28)
--- NOTE | 2017-05-23 12:30 | HP ---
ADMIT DATE: 05/22/2017 HISTORY OF PRESENT ILLNESS: The patient is a 62-year-old male patient, a resident at [facility] who basically came to the Emergency Room complaining of chest pain that started 4 days ago. Normally he has chest pain when he is coughing and the pain subsides. Apparently now his pain is constant at the costal margin on both sides. It is worse with deep breathing and coughing. He also complained of shortness of breath with cough with scanty yellowish sputum. He denied any diaphoresis, denied any fever or chills. He is known to have COPD. He has been admitted here on multiple occasions for COPD. The patient is known to have cardiomyopathy, but has never had any myocardial infarction or stent deployment. He has nonischemic cardiomyopathy with ejection fraction of ____ that has improved actually on his latest echocardiogram to 50%. PAST MEDICAL HISTORY: Significant for COPD. He is also known to have history of pneumonia, history Mycobacterium avium complex infection, history of nonischemic cardiomyopathy and one episode of atrial fibrillation. PAST SURGICAL HISTORY: Significant for prior bronchoscopy. ALLERGIES: He has no known drug allergies. FAMILY HISTORY: Noncontributory. SOCIAL HISTORY: He is currently residing at [facility]. He no longer smokes cigarettes nor does he use any cocaine or marijuana. MEDICATIONS: He is currently on following medications. He is on acetaminophen 650 mg every 4 hours, albuterol sulfate 1 puff by nebulizer every 4 hours, benzonatate 100 mg ____ times a day, escitalopram oxalate 10 mg once a day, ethambutol 800 mg once a day, rifampin 300 mg p.o. b.i.d., temazepam 50 mg at bedtime. He is on DuoNeb 0.5/2.5 mg 3 mL by nebulizer every 4 hours. PHYSICAL EXAMINATION: GENERAL: On arrival to the Emergency Room, he was slightly tachypneic, but there is no pallor, jaundice, cyanosis or thyromegaly. No jugular venous distension. No limb edema. VITAL SIGNS: Heart rate was 84, blood pressure was 127/71, temperature was 98.2, respiratory rate was 30 and oxygen saturation was 97%. HEAD, EYES, EARS, NOSE AND THROAT: Showed normocephalic, atraumatic. NECK: Supple. HEART: Showed normal first and second heart sounds. No gallop, rub or murmur. CHEST: Chest shows central trachea, equally reduced expansion, reduced air entry. I could not really appreciate any crepitation or rhonchi. ABDOMEN: Distended, soft, nontender. NEUROLOGIC: He is awake, alert, responding appropriately. Cranial nerves are intact. EXTREMITIES: He moves extremities without difficulty. LABORATORY DATA: On admission showed a white cell count was 5700, hemoglobin 14.3, hematocrit 41.2, MCV 93, and platelet count 203,000 with normal manual differential. His serum sodium was 140, potassium 4.4, chloride 101, bicarbonate 31, anion gap of 8, BUN 12, creatinine 0.7, estimated GFR was 149 mL per minute. His glucose was 95, calcium was 10. Total bilirubin, AST, ALT, alkaline phosphatase were normal. His total protein was 8.5 and albumin was 3.5. His prothrombin time was 12.9, INR 1, aPTT was 30. His nasal screen for MRSA by PCR was negative. Chest x-ray showed extensive pleural parenchymal left chest opacities compatible with scarring. No new abnormalities detected. ASSESSMENT AND PLAN: The patient was admitted. We will consult the fruit grading supervisor as well as electrician's helper and we will continue with all his medications, particularly ethambutol, rifampin and nebulized treatment and decide on further management accordingly. MANI MCHUGH MD DR: MIQUEL/veronica JOB#: [id number] / [id number]
[2017-05-23 14:50] VITALS: BP 85/51
[2017-05-23] MEDS: HYDROcodone/APAP 10/325 1 TAB TABLET PO PRN ×2 (16:49→20:53)
[2017-05-23 19:00] VITALS: BP 97/51
[2017-05-23] MEDS: TEMAZEPAM 15 MG CAPSULE PO SCH (20:54)
[2017-05-23 23:00] VITALS: BP 95/66
[2017-05-24 03:00] VITALS: BP 96/67
--- NOTE | 2017-05-24 03:48 | PN ---
DATE: 05/23/2017 SUBJECTIVE: The patient is resting slightly propped up, continue to complain of chest pain, mostly in the costal margin both sides continuous, aggravated by coughing, taking a deep breath. He was seen by the fire sprinkler inspector ____. He has multiple sets of cardiac enzymes and troponin is less than 0.017 three times. His EKG was also unremarkable and the cardiology team recommended no further ischemic workup as this is most likely musculoskeletal in nature. He was seen also by the fire sprinkler inspector and recommended to continue with his current management and added prednisone 30 mg once a day. PHYSICAL EXAMINATION: GENERAL: When I saw him this morning, he looked well and was clearly in no apparent respiratory distress, was somewhat cachectic, no jaundice, cyanosis or thyromegaly. No jugular venous distention. No limb edema. VITAL SIGNS: Her heart rate was 74, blood pressure was 102/63, temperature was 98, respiratory rate 20, and oxygen saturation was 93%. HEAD, EYES, EARS, NOSE AND THROAT: Showed normocephalic, atraumatic. NECK: Supple. HEART: Showed normal first and second sounds. No gallop, rub or murmur. CHEST: Clear to auscultation. No crepitation or rhonchi. ABDOMEN: Scaphoid, soft, nontender. NEUROLOGIC: He is awake, alert, responding appropriately. Cranial nerves intact. He moves extremities without difficulty. He ambulates without assistance or assistive devices. LABORATORY DATA: As of this morning, his white cell count was 4000, hemoglobin 13, hematocrit 39, MCV 96, and platelet count 269,000 with normal manual differential. ASSESSMENT AND PLAN: 1. Chest pain, fairly atypical with negative cardiac enzymes. No further ischemic workup was recommended. 2. The patient has history of nonischemic cardiomyopathy with an ejection fraction of 35% that has actually improved on his most recent transthoracic echocardiogram showing an ejection fraction of 55%. 3. The patient is known to have Mycobacterium avium complex, for which he is on ethambutol and rifampicin. 4. Severe chronic obstructive pulmonary disease. I will add ____ to be applied topically to his chest wall and hydrocodone and decide on further management accordingly. MANI MCHUGH MD DR: MIQUEL/veronica JOB#: [id number] / [id number]
[2017-05-24 07:00] VITALS: BP 98/61
[2017-05-24] MEDS: IPRATRPIUM/ALBUTEROL 0.5/2.5MG 3 ML NEBU. NEB SCH ×4 (07:31→19:19)
[2017-05-24] MEDS: DOXYCYCLINE HYCLATE 100 MG TABLET PO SCH ×2 (08:15→21:28)
[2017-05-24] MEDS: riFAMpin 300 MG CAPSULE. PO SCH ×2 (08:16→21:28)
[2017-05-24] MEDS: ETHAMBUTOL HCL 400 MG TABLET PO SCH (08:16)
[2017-05-24] MEDS: ESCITALOPRAM 10 MG TABLET. PO SCH (08:16)
[2017-05-24] MEDS: ASPIRIN ENTERIC COATED 81 MG TABLET.DR. PO SCH (08:16)
[2017-05-24] MEDS: predniSONE 20 MG TABLET PO SCH (08:16)
[2017-05-24] MEDS: BENZONATATE 100 MG CAPSULE. PO SCH (08:16)
[2017-05-24] MEDS: HYDROcodone/APAP 10/325 1 TAB TABLET PO PRN ×3 (08:19→21:29)
[2017-05-24] MEDS: LIDOCAINE (700MG/PATCH) PATCH. TD SCH (08:21)
[2017-05-24 11:00] VITALS: BP 95/62
[2017-05-24 15:00] VITALS: BP 91/58
--- NOTE | 2017-05-24 17:27 | PDOC ---
PULMONARY PROGRESS NOTES Subjective pt feels better less soa and cough Vitals Vital Signs Date Time Temp Pulse Resp B/P (MAP) Pulse Ox O2 Delivery O2 Flow Rate FiO2 05/24/17 15:21 92 Room Air 05/24/17 15:00 98.0 78 20 91/58 (69) 98.0 ROS: No Nausea, No Chest Pain, No Abdominal Pain, No Increase Cough General: Alert, No acute distress HEENT: Other Lungs: Clear Cardiovascular: S1, S2 Abdomen: Soft, Non-tender Neuro Exam: Alert Extremities: No Edema, Other Skin: Warm Labs Laboratory Tests Test 05/22/17 20:20 05/23/17 04:00 05/23/17 04:30 Troponin I Quantitative < 0.017 ng/mL (0.000-0.055) < 0.017 ng/mL (0.000-0.055) White Blood Count 4.0 x10^3/uL (4.0-11.0) Red Blood Count 4.10 x10^6/uL (4.30-5.70) Hemoglobin 12.9 g/dL (13.0-17.5) Hematocrit 39.3 % (39.0-53.0) Mean Corpuscular Volume 96 fL (79-100) Mean Corpuscular Hemoglobin 32 pg (25-35) Mean Corpuscular Hemoglobin Concent 33 g/dL (31-37) Red Cell Distribution Width 13.6 % (11.5-14.5) Platelet Count 269 x10^3/uL (140-400) Neutrophils (%) (Auto) 86 % (31-73) Lymphocytes (%) (Auto) 10 % (24-48) Monocytes (%) (Auto) 2 % (0-9) Eosinophils (%) (Auto) 1 % (0-3) Basophils (%) (Auto) 1 % (0-3) Neutrophils # (Auto) 3.4 x10^3uL (1.8-7.7) Lymphocytes # (Auto) 0.4 x10^3/uL (1.0-4.8) Monocytes # (Auto) 0.1 x10^3/uL (0.0-1.1) Eosinophils # (Auto) 0.0 x10^3/uL (0.0-0.7) Basophils # (Auto) 0.0 x10^3/uL (0.0-0.2) Segmented Neutrophils % 89 % (35-66) Lymphocytes % 7 % (24-48) Monocytes % 4 % (0-10) Platelet Estimate Adequate (ADEQUATE) Sodium Level 140 mmol/L (136-145) Potassium Level 4.4 mmol/L (3.5-5.1) Chloride Level 102 mmol/L (98-107) Carbon Dioxide Level 29 mmol/L (21-32) Anion Gap 9 (6-14) Blood Urea Nitrogen 18 mg/dL (8-26) Creatinine 1.1 mg/dL (0.7-1.3) Estimated GFR (Cockcroft-Gault) 67.6 Glucose Level 155 mg/dL (70-99) Calcium Level 9.5 mg/dL (8.5-10.1) Medications Active Scripts Medications Dose Route/Sig Max Daily Dose Days Date Category Tylenol (Acetaminophen) 325 Mg Tablet 2 Tab PO PRN Q4HRS 05/22/17 Reported Tessalon Perle (Benzonatate) 100 Mg Capsule 100 Mg PO TID PRN 03/26/17 Rx Albuterol Sulfate Conc Neb Soln (Albuterol Sulfate) 2.5 Mg/0.5 Ml Vial.neb 1 Vial NEB Q4HRS 02/25/17 Reported Proair Hfa Inhaler (Albuterol Sulfate) 8.5 Gm Hfa.aer.ad 1 Puff INH PRN Q4HRS PRN 02/25/17 Reported Duoneb 0.5-3(2.5) Mg/3 Ml (Albuterol/Ipratropium) 3 Ml Ampul.neb 3 Ml NEB QID 02/25/17 Reported Ethambutol Hcl 400 Mg Tablet 800 Mg DAILY 10/22/16 Reported Rifampin 300 Mg Capsule 300 Mg BID 10/22/16 Reported Escitalopram Oxalate 10 Mg Tablet 10 Mg DAILY 10/22/16 Reported Temazepam 15 Mg Capsule 1 Cap HS 10/22/16 Reported Impression . IMPRESSION: 1. Acute exacerbation of chronic obstructive pulmonary disease. 2. Chest pain, suspect secondary to costochondritis, Cardiology has been consulted. 3. History of nonischemic cardiomyopathy, ejection fraction of 30-35%. 4. Severe chronic obstructive pulmonary disease. Plan . much better today pain management f per PCP continue the same 1. Continue steroids. 2. Doxycycline for atypical coverage. 3. Nebulized treatments. 4. Follow Cardiology input. WARNER SAUNDERS MD May 24, 2017 17:27
[2017-05-24 19:00] VITALS: BP 96/64
[2017-05-24] MEDS: TEMAZEPAM 15 MG CAPSULE PO SCH (21:28)
--- NOTE | 2017-05-24 22:52 | PN ---
DATE: 05/24/2017 SUBJECTIVE: The patient is resting slightly propped up in bed, in no apparent distress. He continues to have a cough that is hacking dry and lasted for almost an hour, according to him. He is refusing to take his Tessalon because he stated that they are not helpful. He was on heart healthy diet, would like to go back on a regular diet. PHYSICAL EXAMINATION: GENERAL: When I examined him, he was resting comfortably, in no apparent distress, extremely cachectic, but not jaundiced, cyanosis, or thyromegaly. No jugular venous distention. No limb edema. VITAL SIGNS: His heart rate was 69, blood pressure was 98/61, temperature was 97.2, respiratory rate was 16 and oxygen saturation was 94% on room air. HEAD, EYES, EARS, NOSE AND THROAT: Showed normocephalic, atraumatic. NECK: Supple. HEART: Showed normal first and second heart sounds with no gallop, rub or murmur. CHEST: Shows central trachea, equally reduced expansion and air entry, vesicular sounds. No crepitation or rhonchi. ABDOMEN: Scaphoid, soft, nontender. NEUROLOGIC: He was awake, alert, responding appropriately. Cranial nerves intact. He moves all extremities without difficulty. His intake was 1420, no output was recorded. LABORATORY DATA: As of this morning, his BUN was 18, creatinine 1.1. White cell count was 4000, hemoglobin 13, hematocrit 39, MCV 96, and platelet count . ASSESSMENT: 1. Chest pain that is atypical. Troponins and EKG were normal. 2. Nonischemic cardiomyopathy with an ejection fraction of 30% to 35%, that has improved. 3. History of tachyarrhythmia, notable for an episode of paroxysmal atrial fibrillation, resolved. He is now in sinus rhythm. 4. He has severe chronic obstructive disease. 5. Mycobacterium avium complex and recent pneumonia. PLAN: No further ischemic workup was recommended by the exploitation analyst. We will switch him back to regular diet. I added Mucinex. Meanwhile, continue with all other medications. MANI MCHUGH MD DR: MIQUEL/veronica JOB#: [id number] / [id number]
[2017-05-24 23:00] VITALS: BP 101/62
[2017-05-25 03:00] VITALS: BP 90/45
[2017-05-25 07:00] VITALS: BP 90/56
[2017-05-25] MEDS: IPRATRPIUM/ALBUTEROL 0.5/2.5MG 3 ML NEBU. NEB SCH ×4 (07:57→19:49)
[2017-05-25] MEDS: DOXYCYCLINE HYCLATE 100 MG TABLET PO SCH ×2 (08:07→21:25)
[2017-05-25] MEDS: ASPIRIN ENTERIC COATED 81 MG TABLET.DR. PO SCH (08:07)
[2017-05-25] MEDS: predniSONE 20 MG TABLET PO SCH (08:07)
[2017-05-25] MEDS: ESCITALOPRAM 10 MG TABLET. PO SCH (08:07)
[2017-05-25] MEDS: ETHAMBUTOL HCL 400 MG TABLET PO SCH (08:07)
[2017-05-25] MEDS: LIDOCAINE (700MG/PATCH) PATCH. TD SCH (08:08)
[2017-05-25] MEDS: riFAMpin 300 MG CAPSULE. PO SCH ×2 (08:08→21:25)
[2017-05-25 11:13] VITALS: BP 87/55
--- NOTE | 2017-05-25 13:15 | PDOC ---
PULMONARY PROGRESS NOTES Subjective pt feels better less soa and cough Vitals Vital Signs Date Time Temp Pulse Resp B/P (MAP) Pulse Ox O2 Delivery O2 Flow Rate FiO2 05/25/17 12:19 94 Room Air 05/25/17 11:13 97.8 89 18 87/55 (66) 97.8 ROS: No Nausea, No Chest Pain, No Abdominal Pain, No Increase Cough General: Alert, No acute distress HEENT: Other Lungs: Clear Cardiovascular: S1, S2 Abdomen: Soft, Non-tender Neuro Exam: Alert Extremities: No Edema, Other Skin: Warm Medications Active Scripts Medications Dose Route/Sig Max Daily Dose Days Date Category Tylenol (Acetaminophen) 325 Mg Tablet 2 Tab PO PRN Q4HRS 05/22/17 Reported Tessalon Perle (Benzonatate) 100 Mg Capsule 100 Mg PO TID PRN 03/26/17 Rx Albuterol Sulfate Conc Neb Soln (Albuterol Sulfate) 2.5 Mg/0.5 Ml Vial.neb 1 Vial NEB Q4HRS 02/25/17 Reported Proair Hfa Inhaler (Albuterol Sulfate) 8.5 Gm Hfa.aer.ad 1 Puff INH PRN Q4HRS PRN 02/25/17 Reported Duoneb 0.5-3(2.5) Mg/3 Ml (Albuterol/Ipratropium) 3 Ml Ampul.neb 3 Ml NEB QID 02/25/17 Reported Ethambutol Hcl 400 Mg Tablet 800 Mg DAILY 10/22/16 Reported Rifampin 300 Mg Capsule 300 Mg BID 10/22/16 Reported Escitalopram Oxalate 10 Mg Tablet 10 Mg DAILY 10/22/16 Reported Temazepam 15 Mg Capsule 1 Cap HS 10/22/16 Reported Impression . IMPRESSION: 1. Acute exacerbation of chronic obstructive pulmonary disease. 2. Chest pain, suspect secondary to costochondritis, Cardiology has been consulted. 3. History of nonischemic cardiomyopathy, ejection fraction of 30-35%. 4. Severe chronic obstructive pulmonary disease. Plan . much better today, home in am pain management f per PCP continue the same 1. Continue steroids. 2. Doxycycline for atypical coverage. 3. Nebulized treatments. 4. Follow Cardiology input. WARNER SAUNDERS MD May 25, 2017 13:15
[2017-05-25 14:41] VITALS: BP 90/61
[2017-05-25 19:00] VITALS: BP 115/66
[2017-05-25] MEDS: HYDROcodone/APAP 10/325 1 TAB TABLET PO PRN (21:25)
[2017-05-25] MEDS: TEMAZEPAM 15 MG CAPSULE PO SCH (21:25)
[2017-05-25 22:49] VITALS: BP 99/62
[2017-05-25] MEDS: ALBUTEROL SULFATE 2.5 MG/3 ML NEBU. NEB PRN (23:09)
[2017-05-26 03:00] VITALS: BP 88/56
[2017-05-26 06:01] LABS: CALCIUM 9.5 mg/dL (8.5-10.1); CREATININE 0.7 mg/dL (0.7-1.3); GFR 113.9; POTASSIUM 3.7 mmol/L (3.5-5.1)
[2017-05-26 07:00] VITALS: BP 96/60
[2017-05-26] MEDS: IPRATRPIUM/ALBUTEROL 0.5/2.5MG 3 ML NEBU. NEB SCH ×3 (07:23→14:57)
[2017-05-26] MEDS: LIDOCAINE (700MG/PATCH) PATCH. TD SCH ×2 (09:00→10:45)
[2017-05-26] MEDS: ASPIRIN ENTERIC COATED 81 MG TABLET.DR. PO SCH (09:03)
[2017-05-26] MEDS: riFAMpin 300 MG CAPSULE. PO SCH (09:03)
[2017-05-26] MEDS: DOXYCYCLINE HYCLATE 100 MG TABLET PO SCH (09:03)
[2017-05-26] MEDS: predniSONE 20 MG TABLET PO SCH (09:03)
[2017-05-26] MEDS: ESCITALOPRAM 10 MG TABLET. PO SCH (09:03)
[2017-05-26] MEDS: ETHAMBUTOL HCL 400 MG TABLET PO SCH (09:03)
[2017-05-26 11:00] VITALS: BP 80/50
[2017-05-26] MEDS ORDERED: HYDR-2758 PO (11:34)
--- NOTE | 2017-05-26 11:35 | PDOC ---
PULMONARY PROGRESS NOTES Subjective pt feels better less soa and cough Vitals Vital Signs Date Time Temp Pulse Resp B/P (MAP) Pulse Ox O2 Delivery O2 Flow Rate FiO2 05/26/17 11:00 97.6 75 18 80/50 (60) 91 Room Air 97.6 ROS: No Nausea, No Chest Pain, No Abdominal Pain, No Increase Cough General: Alert, No acute distress HEENT: Other Lungs: Clear Cardiovascular: S1, S2 Abdomen: Soft, Non-tender Neuro Exam: Alert Extremities: No Edema, Other Skin: Warm Labs Laboratory Tests Test 05/26/17 03:53 Sodium Level 140 mmol/L (136-145) Potassium Level 3.7 mmol/L (3.5-5.1) Chloride Level 104 mmol/L (98-107) Carbon Dioxide Level 32 mmol/L (21-32) Anion Gap 4 (6-14) Blood Urea Nitrogen 23 mg/dL (8-26) Creatinine 0.7 mg/dL (0.7-1.3) Estimated GFR (Cockcroft-Gault) 113.9 Glucose Level 117 mg/dL (70-99) Calcium Level 9.5 mg/dL (8.5-10.1) Laboratory Tests Test 05/26/17 03:53 Sodium Level 140 mmol/L (136-145) Potassium Level 3.7 mmol/L (3.5-5.1) Chloride Level 104 mmol/L (98-107) Carbon Dioxide Level 32 mmol/L (21-32) Anion Gap 4 (6-14) Blood Urea Nitrogen 23 mg/dL (8-26) Creatinine 0.7 mg/dL (0.7-1.3) Estimated GFR (Cockcroft-Gault) 113.9 Glucose Level 117 mg/dL (70-99) Calcium Level 9.5 mg/dL (8.5-10.1) Medications Active Scripts Medications Dose Route/Sig Max Daily Dose Days Date Category Tylenol (Acetaminophen) 325 Mg Tablet 2 Tab PO PRN Q4HRS 05/22/17 Reported Tessalon Perle (Benzonatate) 100 Mg Capsule 100 Mg PO TID PRN 03/26/17 Rx Albuterol Sulfate Conc Neb Soln (Albuterol Sulfate) 2.5 Mg/0.5 Ml Vial.neb 1 Vial NEB Q4HRS 02/25/17 Reported Proair Hfa Inhaler (Albuterol Sulfate) 8.5 Gm Hfa.aer.ad 1 Puff INH PRN Q4HRS PRN 02/25/17 Reported Duoneb 0.5-3(2.5) Mg/3 Ml (Albuterol/Ipratropium) 3 Ml Ampul.neb 3 Ml NEB QID 02/25/17 Reported Ethambutol Hcl 400 Mg Tablet 800 Mg DAILY 10/22/16 Reported Rifampin 300 Mg Capsule 300 Mg BID 10/22/16 Reported Escitalopram Oxalate 10 Mg Tablet 10 Mg DAILY 10/22/16 Reported Temazepam 15 Mg Capsule 1 Cap HS 10/22/16 Reported Impression . IMPRESSION: 1. Acute exacerbation of chronic obstructive pulmonary disease. 2. Chest pain, suspect secondary to costochondritis, Cardiology has been consulted. 3. History of nonischemic cardiomyopathy, ejection fraction of 30-35%. 4. Severe chronic obstructive pulmonary disease. Plan . TRANSFER BACK TODAY WARNER SAUNDERS MD May 26, 2017 11:35
--- NOTE | 2017-05-26 12:44 | PN ---
DATE: 05/25/2017 SUBJECTIVE: The patient is resting slightly propped up, sleeping comfortably in no apparent distress. His cough is much better controlled. Pain is also much better controlled. Went to sleep very well last night. Nursing staff did not voice any concerns ____. PHYSICAL EXAMINATION: GENERAL: When I examined him this morning, he looked well and was clearly in no apparent respiratory distress. No pallor, but is extremely cachectic. VITAL SIGNS: His heart rate was 73, blood pressure was 90/56, temperature was 97.7, respiratory rate was 16 and oxygen saturation was 99%. The rest of clinical examination is stable and has not really changed. LABORATORY DATA: His lab works are stable. ASSESSMENT AND PLAN: 1. Chest pain that is atypical. Troponin and EKG were normal. 2. He has nonischemic cardiomyopathy with an ejection fraction originally at 30-35% that has improved to 50%. 3. History of tachyarrhythmia notable for one episode of paroxysmal atrial fibrillation, resolved. He is now in sinus rhythm. 4. He has severe chronic obstructive pulmonary disease. 5. Mycobacterium avium complex and recent pneumonia. The plan is to continue with pain medication, is back on a regular diet. We discontinued the telemetry, continue with all other medication particularly ethambutol and rifampin for his Mycobacterium infection. The patient seems to be much improved and hopefully, we will be able to discharge him back to [facility] tomorrow. MANI MCHUGH MD DR: MIQUEL/veronica JOB#: [id number] / [id number]
--- NOTE | 2017-05-26 22:26 | DS ---
DATE OF DISCHARGE: 05/26/2017 HOSPITAL COURSE: The patient is a 62-year-old male patient, a resident at [facility] who was admitted with complaint of chest pain that was atypical. He was seen in consultation by the Cardiology team and he has had 3 sets of cardiac enzymes that were negative. His EKG was unremarkable and he apparently is known to have nonischemic cardiomyopathy before with an ejection fraction that was 30-35 that subsequently improved to 55%. He has a nuclear stress test which was unremarkable for ischemia at that time and the Cardiology team did not recommend any further ischemic workup. He was seen also in consultation by ____, finish specialist and he was started on steroids, doxycycline ____ and bronchodilator. He continued to have chest pain, mostly at the costochondral junction and I did add Lidoderm patch and hydrocodone and he did very well. He has been now able to sleep and his cough is much less and that the pain is much improved and therefore a decision was made to discharge him home, to continue with doxycycline for 5 more days, tapering course of steroids, continue obviously with ethambutol and rifampin for his Mycobacterium avium complex infection. PHYSICAL EXAMINATION: GENERAL: When I examined him, he looked pale, cachectic, but no jaundice, cyanosis, or thyromegaly. No jugular venous distention. No limb edema. VITAL SIGNS: His heart rate was 75, blood pressure was 80/50, temperature was 97.6, respiratory rate was 18 and oxygen saturation was 91%. The rest of clinical exam is stable. LABORATORY DATA: Showed a white cell count 4000, hemoglobin 13, hematocrit 39, MCV 96, and platelet count 269,000. His chemistry showed a serum sodium 140, potassium 3.7, chloride 104, bicarbonate 32, anion gap of 4, BUN of 23, creatinine 0.7, estimated GFR was 113 mL per minute. His glucose 117 and calcium was 9.5. DISCHARGE MEDICATIONS: The patient was discharged back to [facility] to continue on hydrocodone/APAP 5/325 mg one tablet every 4 hours as needed, Lidoderm patch 5% apply 2 patches to chest wall one in the morning and off at nighttime for 12 hours, Tylenol 650 mg every 4 hours, albuterol sulfate 1 puff every 4 hours as needed, Mucinex 600 mg twice a day, escitalopram oxalate 10 mg once a day, ethambutol 800 mg once a day, rifampin 300 mg twice a day and temazepam 15 mg 1 capsule at bedtime. FINAL DISCHARGE DIAGNOSES: Chest pain, fairly atypical. The myocardial infarction is ruled out. The patient is known to have nonischemic cardiomyopathy with an ejection fraction that was down to 30-35. Nuclear stress test was unremarkable and subsequent transthoracic echocardiogram showed that the ejection fraction has improved to 55% as 1 episode of paroxysmal atrial fibrillation that has resolved. He is currently in sinus rhythm. Left upper lobe cavitary lesion noted. Mycobacterium avium complex. Severe chronic obstructive pulmonary disease. MANI MCHUGH MD DR: MIQUEL/veronica JOB#: [id number] / [id number]
== END 2017-05-26 16:20 | DRG 178 ==
LOC: ER 09:44 → 5 NORTH 10:48
PROVIDERS: ADMIT Internal Medicine; ATTEND Internal Medicine
DX: A31.0 Pulmonary mycobacterial infection (principal); J44.1 Chronic obstructive pulmonary disease with (acute) exacerbation; I42.8 Other cardiomyopathies; R64 Cachexia; Z68.1 Body mass index [BMI] 19.9 or less, adult; M94.0 Chondrocostal junction syndrome [Tietze]; G62.9 Polyneuropathy, unspecified; I50.9 Heart failure, unspecified; I48.0 Paroxysmal atrial fibrillation; I49.3 Ventricular premature depolarization; F41.9 Anxiety disorder, unspecified; F14.90 Cocaine use, unspecified, uncomplicated; Z80.1 Family history of malignant neoplasm of trachea, bronchus and lung; Z87.891 Personal history of nicotine dependence; Z87.01 Personal history of pneumonia (recurrent); Z79.899 Other long term (current) drug therapy; Z79.1 Long term (current) use of non-steroidal anti-inflammatories (NSAID)
CPT/HCPCS: 36415; 71010; 80048; 80053; 83880; 84484; 85007; 85027; 85610; 85730; 87070; 87205; 87641; 93005; 94250; 94640; 94760; 96374; J2270; J2930; J7512; J7620; 99285-25

== ENCOUNTER 2017-06-07 19:22 | Inpatient (IN) | payer OTHER ==
[~2017-06-07] VITALS: Ht 175.3 cm; Wt 55.9 kg
[~2017-06-07 19:22] MED LIST changes: +HYDR-2758 PO
--- NOTE | 2017-06-07 19:26 | PHYS DOC ---
Past Medical History Past Medical History: COPD, Pneumonia Additional Past Medical Histor: CARDIOMYOPATHY, MAC Past Surgical History: Other Additional Past Surgical Histo: bronchoscopy Alcohol Use: Occasionally Drug Use: Cocaine Adult General Chief Complaint Chief Complaint: short of breath HPI HPI Patient is a 62 year old and male who presents with was of breath. He states started around 2 hours ago. He stated he had some shortness of breath last night and took an OxyContin and was able to sleep. He about 2 hours ago he started having chest pressure sensations in the center of his chest is nonradiating denies any nausea or vomiting associated with this. He had a few beers and his symptoms got worse and started having shortness of breath. He states he's had a nonproductive cough the last several days but denies any fevers or chills. He is having some substernal chest pain that started earlier today. He states nothing makes it better or worse. He denies any nausea or vomiting. Review of Systems Review of Systems Constitutional: Denies fever or chills [] Eyes: Denies change in visual acuity, redness, or eye pain [] HENT: Denies nasal congestion or sore throat [] Respiratory: Denies cough or shortness of breath [] Cardiovascular: No additional information not addressed in HPI [] GI: Denies abdominal pain, nausea, vomiting, bloody stools or diarrhea [] : Denies dysuria or hematuria [] Musculoskeletal: Denies back pain or joint pain [] Integument: Denies rash or skin lesions [] Neurologic: Denies headache, focal weakness or sensory changes [] Endocrine: Denies polyuria or polydipsia [] Current Medications Current Medications Current Medications Medications (Trade) Dose Ordered Sig/Ken Start Time Stop Time Status Last Admin Dose Admin Albuterol/ Ipratropium (Duoneb) 3 ml STK-MED ONCE 06/07/17 19:34 06/07/17 19:35 DC Azithromycin 250 ml @ 250 mls/hr 1X ONCE 06/07/17 20:30 06/07/17 21:29 06/07/17 20:42 250 MLS/HR Methylprednisolone Sodium Succinate (SOLU-Medrol 125MG VIAL) 125 mg 1X ONCE 06/07/17 20:00 06/07/17 20:01 DC 06/07/17 19:44 125 MG Morphine Sulfate 2 mg PRN Q15MIN PRN 06/07/17 20:15 06/08/17 20:14 06/07/17 20:22 2 MG Allergies Allergies Allergies Coded Allergies Type Severity Reaction Last Updated Verified No Known Drug Allergies 02/02/16 No Physical Exam Physical Exam Constitutional: Well developed, well nourished, no acute distress, non-toxic appearance. [] HENT: Normocephalic, atraumatic, bilateral external ears normal, oropharynx moist, no oral exudates, nose normal. [] Eyes: PERRLA, EOMI, conjunctiva normal, no discharge. [] Neck: Normal range of motion, no tenderness, supple, no stridor. [] Cardiovascular:Heart rate regular rhythm, no murmur [] Lungs & Thorax: Bilateral breath sounds clear to auscultation [] Abdomen: Bowel sounds normal, soft, no tenderness, no masses, no pulsatile masses. [] Skin: Warm, dry, no erythema, no rash. [] Back: No tenderness, no CVA tenderness. [] Extremities: No tenderness, no cyanosis, no clubbing, ROM intact, no edema. [] Neurologic: Alert and oriented X 3, normal motor function, normal sensory function, no focal deficits noted. [] Psychologic: Affect normal, judgement normal, mood normal. [] Current Patient Data Vital Signs Vital Signs Date Time Temp Pulse Resp B/P (MAP) Pulse Ox O2 Delivery O2 Flow Rate FiO2 06/07/17 20:30 98 22 102/66 (78) 93 Room Air 06/07/17 20:00 2.0 06/07/17 19:22 99.1 99.1 Lab Values Laboratory Tests Test 06/07/17 19:30 06/07/17 20:35 White Blood Count 5.8 x10^3/uL (4.0-11.0) Red Blood Count 4.01 x10^6/uL (4.30-5.70) L Hemoglobin 12.8 g/dL (13.0-17.5) L Hematocrit 38.0 % (39.0-53.0) L Mean Corpuscular Volume 95 fL (79-100) Mean Corpuscular Hemoglobin 32 pg (25-35) Mean Corpuscular Hemoglobin Concent 34 g/dL (31-37) Red Cell Distribution Width 14.0 % (11.5-14.5) Platelet Count 245 x10^3/uL (140-400) Neutrophils (%) (Auto) 69 % (31-73) Lymphocytes (%) (Auto) 14 % (24-48) L Monocytes (%) (Auto) 14 % (0-9) H Eosinophils (%) (Auto) 3 % (0-3) Basophils (%) (Auto) 1 % (0-3) Neutrophils # (Auto) 4.0 x10^3uL (1.8-7.7) Lymphocytes # (Auto) 0.8 x10^3/uL (1.0-4.8) L Monocytes # (Auto) 0.8 x10^3/uL (0.0-1.1) Eosinophils # (Auto) 0.2 x10^3/uL (0.0-0.7) Basophils # (Auto) 0.1 x10^3/uL (0.0-0.2) Prothrombin Time 12.9 SEC (11.7-14.0) Prothrombin Time INR 1.0 (0.8-1.1) D-Dimer (Mesha) 0.38 ug/mlFEU (0.00-0.50) Sodium Level 141 mmol/L (136-145) Potassium Level 3.7 mmol/L (3.5-5.1) Chloride Level 103 mmol/L (98-107) Carbon Dioxide Level 28 mmol/L (21-32) Anion Gap 10 (6-14) Blood Urea Nitrogen 10 mg/dL (8-26) Creatinine 0.6 mg/dL (0.7-1.3) L Estimated GFR (Cockcroft-Gault) 136.1 Glucose Level 115 mg/dL (70-99) H Calcium Level 9.2 mg/dL (8.5-10.1) Magnesium Level 1.9 mg/dL (1.8-2.4) Total Bilirubin 0.1 mg/dL (0.2-1.0) L Direct Bilirubin < 0.1 mg/dL (0.0-0.2) Aspartate Amino Transferase (AST) 23 U/L (15-37) Alanine Aminotransferase (ALT) 22 U/L (16-63) Alkaline Phosphatase 49 U/L (46-116) Creatine Kinase 90 U/L (39-308) Creatine Kinase MB (Mass) 3.7 ng/mL (0.0-3.6) H Creatine Kinase MB Relative Index 4.1 % (0-4) H Troponin I Quantitative < 0.017 ng/mL (0.000-0.055) NJ-Lyt-A-Type Natriuretic Peptide 352 pg/mL (0-124) H Total Protein 7.5 g/dL (6.4-8.2) Albumin 3.2 g/dL (3.4-5.0) L Lipase 137 U/L (73-393) Thyroid Stimulating Hormone (TSH) 2.988 uIU/mL (0.358-3.74) Urine Collection Type Unknown Urine Color Yellow Urine Clarity Clear Urine pH 6.5 Urine Specific [place] 1.015 Urine Protein Negative mg/dL (NEG-TRACE) Urine Glucose (UA) Negative mg/dL (NEG) Urine Ketones (Stick) Negative mg/dL (NEG) Urine Blood Negative (NEG) Urine Nitrite Negative (NEG) Urine Bilirubin Negative (NEG) Urine Urobilinogen Dipstick 0.2 mg/dL (0.2 mg/dL) Urine Leukocyte Esterase Negative (NEG) Urine RBC Occ /HPF (0-2) Urine WBC Occ /HPF (0-4) Urine Squamous Epithelial Cells Few /LPF Urine Bacteria 0 /HPF (0-FEW) Urine Mucus Mod /LPF Laboratory Tests 06/07/17 19:30 Laboratory Tests 06/07/17 19:30 EKG EKG EKG at 1928 shows sinus tachycardia with a rate of [address] elevations or T-wave inversions, normal axis, QTC 400 ms, as interpreted by me. EKG at 1939 shows sinus tachycardia without any ST elevations or T-wave inversions, normal axis, QTC 512 ms, as interpreted by me. Radiology/Procedures Radiology/Procedures View chest x-ray did not show any focal consolidations, bony abnormality, pneumothorax, as interpreted by me. Impressions: COPD exacerbation Chest pain Course & Med Decision Making Course & Med Decision Making Pertinent Labs and Imaging studies reviewed. (See chart for details) Patient came in short of breath he received breathing treatments and SoluMedrol addition to azithromycin. EKG shows sinus tachycardia without any ST elevations. Troponin and d-dimer are negative. We'll admit to , spoke with Dr. Royal who wanted ABG. Patient's agreeable plan being admitted with interim orders for serial troponins, breathing treatments. Dragon Disclaimer Dragon Disclaimer This electronic medical record was generated, in whole or in part, using a voice recognition dictation system. Departure Departure Impression: Primary Impression: COPD (chronic obstructive pulmonary disease) Additional Impression: Atypical chest pain Disposition: ADMITTED INPATIENT Admitting Physician: Shari Royal Referrals: DEBORAH PICKENS MD (PCP) Problem Qualifiers Primary Impression: COPD (chronic obstructive pulmonary disease) COPD type: unspecified COPD Qualified Codes: J44.9 - Chronic obstructive pulmonary disease, unspecified TG AVALOS MD Jun 07, 2017 19:26
[2017-06-07] MEDS ORDERED: IPRATRPIUM/ALBUTEROL 0.5/2.5MG 3 ML NEBU. ONE (19:34)
[2017-06-07 19:45] LABS: BASO # 0.1 x10^3/uL (0.0-0.2); BASO % 1 % (0-3); EOS % 3 % (0-3); HEMOGLOBIN 12.8 g/dL (13.0-17.5); LYMPH # 0.8 x10^3/uL (1.0-4.8); LYMPH % 14 % (24-48); MEAN CORPUSCULAR HEMOGLOBIN 32 pg (25-35); MEAN CORPUSCULAR HGB CONC 34 g/dL (31-37); MEAN CORPUSCULAR VOLUME 95 fL (79-100); MONO % 14 % (0-9); NEUT % 69 % (31-73); PLATELET COUNT 245 x10^3/uL (140-400); RED BLOOD COUNT 4.01 x10^6/uL (4.30-5.70); WHITE BLOOD COUNT 5.8 x10^3/uL (4.0-11.0)
[2017-06-07 19:59] LABS: PROTHROMBIN TIME PATIENT 12.9 SEC (11.7-14.0)
[2017-06-07] MEDS ORDERED: methylPREDNISolone SOD SUCC PF 125 MG/2 ML VIAL. IV ONE (20:00)
[2017-06-07] MEDS ORDERED: IPRATRPIUM/ALBUTEROL 0.5/2.5MG 3 ML NEBU. NEB ONE (20:00)
[2017-06-07 20:02] LABS: ANION GAP 10 (6-14); BLOOD UREA NITROGEN 10 mg/dL (8-26); CALCIUM 9.2 mg/dL (8.5-10.1); CARBON DIOXIDE 28 mmol/L (21-32); CHLORIDE 103 mmol/L (98-107); CREATININE 0.6 mg/dL (0.7-1.3); GFR 136.1; GLUCOSE 115 mg/dL (70-99); POTASSIUM 3.7 mmol/L (3.5-5.1); SODIUM 141 mmol/L (136-145)
[2017-06-07 20:07] LABS: ALBUMIN 3.2 g/dL (3.4-5.0); ALK PHOS 49 U/L (46-116); ALT (SGPT) 22 U/L (16-63); AST (SGOT) 23 U/L (15-37); DIRECT BILIRUBIN < 0.1 mg/dL (0.0-0.2); MAGNESIUM 1.9 mg/dL (1.8-2.4); TOTAL BILIRUBIN 0.1 mg/dL (0.2-1.0); TOTAL PROTEIN 7.5 g/dL (6.4-8.2)
[2017-06-07 20:15] LABS: CKMB MASS 3.7 ng/mL (0.0-3.6)
[2017-06-07] MEDS ORDERED: MORPHINE SULFATE 2 MG/ML DISP.SYRIN. IV/SQ PRN (20:15)
[2017-06-07] MEDS ORDERED: AZITHRMYCN 500MG IVPB FOR OMNI 250 ML IV ONE (20:30)
[2017-06-07 20:45] LABS: BILIRUBIN,URINE NEGATIVE (NEG); GLUCOSE,URINE NEGATIVE (NEG); NITRITE,URINE NEGATIVE (NEG); PH,URINE 6.5; PROTEIN,URINE NEGATIVE (NEG-TRACE); UROBILINOGEN,URINE 0.2 mg/dL (0.2 mg/dL)
[2017-06-07 20:52] LABS: BARBITURATES NEG (NEG); BENZODIAZEPINES POS (NEG); CANNABINOIDS NEG (NEG); COCAINE POS (NEG); METHADONE NEG (NEG); OPIATES POS (NEG); PHENCYCLIDINE NEG (NEG)
[2017-06-07 20:55] LABS: BACTERIA,URINE 0 /HPF (0-FEW); RBC,URINE OCC /HPF (0-2); WBC,URINE OCC /HPF (0-4)
[2017-06-07 20:56] LABS: SQUAMOUS EPITHELIAL CELL,UR FEW /LPF
[2017-06-07 21:11] LABS: HCO3 ABG 30 mmol/L (21-28); PCO2 ABG 50 mmHg (35-46); PH ABG 7.39 (7.35-7.45); PO2 ABG 72 mmHg (65-108); SAT O2 ABG 94 % (92-99)
[2017-06-07 21:12] LABS: FIO2 ABG 21
[2017-06-07] MEDS ORDERED: MORPHINE SULFATE 2 MG/ML DISP.SYRIN. IV PRN (21:15)
[2017-06-07] MEDS ORDERED: ONDANSETRON PF 4 MG/2 ML VIAL. IV PRN (21:15)
[2017-06-07 23:35] VITALS: BP 99/69
[2017-06-08] MEDS ORDERED: NON FORMULARY ITEM (Albuterol Sulfate (Proair Hfa Inhaler) 1 PUFF) INH PRN
[2017-06-08] MEDS ORDERED: ACETAMINOPHEN 325 MG TABLET. PO PRN
[2017-06-08] MEDS ORDERED: NON FORMULARY ITEM (Albuterol Sulfate (Albuterol Sulfate Conc Neb Soln) 1 VIAL) NEB SCH
[2017-06-08] MEDS ORDERED: IPRATRPIUM/ALBUTEROL 0.5/2.5MG 3 ML NEBU. NEB ONE (00:30)
[2017-06-08] MEDS ORDERED: TEMAZEPAM 15 MG CAPSULE PO ONE (02:00)
[2017-06-08] MEDS: BENZONATATE 100 MG CAPSULE. PO PRN ×4 (02:04→22:59)
[2017-06-08 03:00] VITALS: BP 100/64
[2017-06-08 03:54] LABS: BASO % 1 % (0-3); EOS % 0 % (0-3); HEMOGLOBIN 12.4 g/dL (13.0-17.5); LYMPH # 0.5 x10^3/uL (1.0-4.8); LYMPH % 13 % (24-48); MEAN CORPUSCULAR HEMOGLOBIN 32 pg (25-35); MEAN CORPUSCULAR HGB CONC 33 g/dL (31-37); MEAN CORPUSCULAR VOLUME 96 fL (79-100); MONO % 7 % (0-9); NEUT % 80 % (31-73); PLATELET COUNT 228 x10^3/uL (140-400); RED BLOOD COUNT 3.87 x10^6/uL (4.30-5.70); RED CELL DISTRIBUTION WIDTH 13.6 % (11.5-14.5); WHITE BLOOD COUNT 4.2 x10^3/uL (4.0-11.0)
[2017-06-08 05:34] LABS: CALCIUM 8.6 mg/dL (8.5-10.1); CREATININE 0.7 mg/dL (0.7-1.3); GFR 113.9; POTASSIUM 4.3 mmol/L (3.5-5.1)
[2017-06-08] MEDS: IPRATRPIUM/ALBUTEROL 0.5/2.5MG 3 ML NEBU. NEB SCH ×4 (06:53→20:09)
--- NOTE | 2017-06-08 06:59 | PDOC2 ---
CARDIOLOGY CONSULT NOTE CHEIF COMPLAINT: Chest pain Problems: HPI: 62 y.o male well known to us from previous admissions presenting with recurrent similar complaints of chest pain, dyspnea. He was in his usual state of health and had some discomfort that started yesterday. Denies any recent changes in functional capacity. No alleviating or aggravating factors for his pain/dyspnea. He has chronic pulmonary disease. Pain is noted to be constant. No changes with exertion or rest. Worse with coughing. In ER, he was noted to have normal enzymes and then admitted for rule out. PMHX: Prior TB - treated COPD SOCHX: +tobacco abuse, alcohol, no illicits. FAMHX: Non-contributory CURRENT MEDS: Current Medications Medications (Trade) Dose Ordered Sig/Ken Start Time Stop Time Status Last Admin Dose Admin Acetaminophen (Tylenol) 650 mg PRN Q4HRS PRN 06/08/17 00:00 Acetaminophen/ Hydrocodone Bitart (Lortab 5/325) 1 tab PRN Q4HRS PRN 06/08/17 00:00 Albuterol Sulfate (Ventolin Neb Soln) 2.5 mg PRN Q4HRS PRN 06/08/17 00:15 Albuterol/ Ipratropium (Duoneb) 3 ml 1X ONCE 06/08/17 00:30 06/08/17 00:31 DC 06/08/17 00:15 3 ML Azithromycin 250 ml @ 250 mls/hr 1X ONCE 06/07/17 20:30 06/07/17 21:29 DC 06/07/17 20:42 250 MLS/HR Benzonatate (Tessalon Perle) 100 mg PRN TID PRN 06/08/17 00:00 06/08/17 02:04 100 MG Escitalopram Oxalate (Lexapro) 10 mg DAILY 06/08/17 09:00 Ethambutol HCl (Myambutol) 800 mg DAILY 06/08/17 09:00 Methylprednisolone Sodium Succinate (SOLU-Medrol 125MG VIAL) 125 mg 1X ONCE 06/07/17 20:00 06/07/17 20:01 DC 06/07/17 19:44 125 MG Morphine Sulfate 2 mg PRN Q4HRS PRN 06/07/17 21:15 Non-Formulary Medication 1 puff PRN Q4HRS PRN 06/08/17 00:00 UNV Ondansetron HCl (Zofran) 4 mg PRN Q8HRS PRN 06/07/17 21:15 06/08/17 21:14 Rifampin (Rifadin) 300 mg BID 06/08/17 09:00 Temazepam (Restoril) 15 mg 1X ONCE 06/08/17 02:00 06/08/17 02:01 DC 06/08/17 02:04 15 MG ALLERGIES: Allergies Coded Allergies Type Severity Reaction Last Updated Verified No Known Drug Allergies 02/02/16 No ROS: Negative for 09/13 systems reviewed CVS: [] Orthopnea, [x] CP RESP: [x] SOB, [] MITCHELL GI: [-] Nausea, [-] Vomiting : [-] Dysuria, [] Urgency PHYSICAL EXAM: Vital Signs: Vital Signs Date Time Temp Pulse Resp B/P (MAP) Pulse Ox O2 Delivery O2 Flow Rate FiO2 06/08/17 03:00 97.4 20 20 100/64 (76) 94 Room Air 97.4 06/07/17 20:00 2.0 I & O Intake and Output 06/08/17 07:00 Intake Total 250 ml Balance 250 ml Intake Oral 0 ml IV Total 250 ml # Voids 1 # Bowel Movements 1 Physical Exam: GEN.: No apparent distress. Alert and oriented. Frail elderly man in no distress. HEENT: Head is normocephalic, atraumatic NECK: Supple. LUNGS: Decreased breath sounds bilaterally. HEART: RRR, S1, S2 present. Peripheral pulses intact ABDOMEN: Soft, nontender. Positive bowel sounds. EXTREMITIES: Without any cyanosis. NEUROLOGIC: Normal speech, normal tone PSYCHIATRIC: Normal affect, normal mood. SKIN: No ulcerations DIAGNOSTIC TESTING: CXR - reviewed - no acute heart failure. similar compared to prior. EKG: Echo in 03/2017 - wnl Nuc stress in 2016 - wnl Lab Reviewed. Enzymes negative x 2. BNP minimally elevated. ASSESSMENT: 1. Non-cardiac chest pain 2. COPD 3. Acute on chronic respiratory failure secondary to COPD and prior TB. 4. Possible GERD PLAN: 1. No further CV testing necessary. 2. Supportive care for now. Consider PPI. 3. If after PPI and conservative mgmt, he still has significant pain, could then consider cath. KYA BOYD MD Jun 08, 2017 06:59
[2017-06-08 07:52] VITALS: BP 110/66
--- NOTE | 2017-06-08 09:00 | RAD ---
Examination: Single frontal view the chest. History: History of shortness of breath Comparison: 05/22/2017. Findings: The cardiomediastinal silhouette grossly appears unremarkable. Emphysematous is identified in the lungs. Unchanged extensive pleural and parenchymal opacities identified in the left chest with chronic volume loss in the left upper lobe. There are scarring changes identified in the left lower lobe of the lung. Impression: Extensive left lung opacities likely scarring changes grossly similar to prior exam.
[2017-06-08] MEDS: riFAMpin 300 MG CAPSULE. PO SCH ×2 (09:14→20:52)
[2017-06-08] MEDS: ESCITALOPRAM 5 MG TABLET. PO SCH (09:14)
[2017-06-08] MEDS: ETHAMBUTOL HCL 400 MG TABLET PO SCH (09:14)
[2017-06-08] MEDS: HYDROcodone/APAP 5/325MG 1 TAB TABLET PO PRN ×3 (09:16→19:12)
[2017-06-08 10:43] VITALS: BP 97/63
--- NOTE | 2017-06-08 12:17 | EKG ---
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
--- NOTE | 2017-06-08 12:46 | EKG ---
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
--- NOTE | 2017-06-08 13:44 | PDOC1 ---
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) CENTRAL NERVOUS SYSTEM: Other GI: No pertinent hx Heme/Onc: No pertinent hx Hepatobiliary: No pertinent hx Psych: Anxiety, Depression Rheumatologic: No pertinent hx Infectious disease: No pertinent hx Renal/: No pertinent hx Endocrine: No pertinent hx Past Surgical History Past Surgical History: Other Family History Family History: Cancer Social History Smoke: Quit ALCOHOL: none Drugs: None, Other Current Problem List Problem List Problems Medical Problems: (1) COPD (chronic obstructive pulmonary disease) Status: Acute chest pain Current Medications Current Medications Current Medications Medications (Trade) Dose Ordered Sig/Ken Start Time Stop Time Status Last Admin Dose Admin Acetaminophen (Tylenol) 650 mg PRN Q4HRS PRN 06/08/17 00:00 Acetaminophen/ Hydrocodone Bitart (Lortab 5/325) 1 tab PRN Q4HRS PRN 06/08/17 00:00 06/08/17 09:16 1 TAB Albuterol Sulfate (Ventolin Neb Soln) 2.5 mg PRN Q4HRS PRN 06/08/17 00:15 Albuterol/ Ipratropium (Duoneb) 3 ml 1X ONCE 06/08/17 00:30 06/08/17 00:31 DC 06/08/17 00:15 3 ML Azithromycin 250 ml @ 250 mls/hr 1X ONCE 06/07/17 20:30 06/07/17 21:29 DC 06/07/17 20:42 250 MLS/HR Benzonatate (Tessalon Perle) 100 mg PRN TID PRN 06/08/17 00:00 06/08/17 09:14 100 MG Escitalopram Oxalate (Lexapro) 10 mg DAILY 06/08/17 09:00 06/08/17 09:14 10 MG Ethambutol HCl (Myambutol) 800 mg DAILY 06/08/17 09:00 06/08/17 09:14 800 MG Methylprednisolone Sodium Succinate (SOLU-Medrol 125MG VIAL) 125 mg 1X ONCE 06/07/17 20:00 06/07/17 20:01 DC 06/07/17 19:44 125 MG Morphine Sulfate 2 mg PRN Q4HRS PRN 06/07/17 21:15 Non-Formulary Medication 1 puff PRN Q4HRS PRN 06/08/17 00:00 UNV Ondansetron HCl (Zofran) 4 mg PRN Q8HRS PRN 06/07/17 21:15 06/08/17 21:14 Rifampin (Rifadin) 300 mg BID 06/08/17 09:00 06/08/17 09:14 300 MG Temazepam (Restoril) 15 mg 1X ONCE 06/08/17 02:00 06/08/17 02:01 DC 06/08/17 02:04 15 MG Allergies Allergies Allergies Coded Allergies Type Severity Reaction Last Updated Verified No Known Drug Allergies 02/02/16 No ROS Review of System CONSTITUTIONAL: No fever or chills EYES: No recent changes SKIN: No rash or itching CARDIOVASCULAR: No chest pain, syncope, palpitations, or edema RESPIRATORY: No SOB or cough GASTROINTESTINAL: No nausea, vomiting or abdominal pain NEUROLOGICAL: No headaches or weakness ENDOCRINE: No cold or heat intolerance GENITOURINARY: No urgency or frequency of urination MUSCULOSKELETAL: No back pain or joint pain LYMPHATICS: No enlarged lymph nodes PSYCHIATRIC: No anxiety or depression Physical Exam Physical Exam GEN.: No apparent distress. Alert and oriented. HEENT: Head is normocephalic, atraumatic NECK: Supple. LUNGS: Clear to auscultation. HEART: RRR, S1, S2 present. Peripheral pulses intact ABDOMEN: Soft, nontender. Positive bowel sounds. EXTREMITIES: Without any cyanosis. NEUROLOGIC: Normal speech, normal tone PSYCHIATRIC: Normal affect, normal mood. SKIN: No ulcerations Vitals Vitals Vital Signs Date Time Temp Pulse Resp B/P (MAP) Pulse Ox O2 Delivery O2 Flow Rate FiO2 06/08/17 11:10 Room Air 06/08/17 10:43 98.2 90 13 97/63 (74) 95 98.2 06/08/17 08:00 2.0 Labs Labs Laboratory Tests Test 06/07/17 19:30 06/07/17 20:35 06/07/17 20:49 06/08/17 03:20 White Blood Count 5.8 x10^3/uL (4.0-11.0) 4.2 x10^3/uL (4.0-11.0) Red Blood Count 4.01 x10^6/uL (4.30-5.70) 3.87 x10^6/uL (4.30-5.70) Hemoglobin 12.8 g/dL (13.0-17.5) 12.4 g/dL (13.0-17.5) Hematocrit 38.0 % (39.0-53.0) 37.0 % (39.0-53.0) Mean Corpuscular Volume 95 fL (79-100) 96 fL (79-100) Mean Corpuscular Hemoglobin 32 pg (25-35) 32 pg (25-35) Mean Corpuscular Hemoglobin Concent 34 g/dL (31-37) 33 g/dL (31-37) Red Cell Distribution Width 14.0 % (11.5-14.5) 13.6 % (11.5-14.5) Platelet Count 245 x10^3/uL (140-400) 228 x10^3/uL (140-400) Neutrophils (%) (Auto) 69 % (31-73) 80 % (31-73) Lymphocytes (%) (Auto) 14 % (24-48) 13 % (24-48) Monocytes (%) (Auto) 14 % (0-9) 7 % (0-9) Eosinophils (%) (Auto) 3 % (0-3) 0 % (0-3) Basophils (%) (Auto) 1 % (0-3) 1 % (0-3) Neutrophils # (Auto) 4.0 x10^3uL (1.8-7.7) 3.3 x10^3uL (1.8-7.7) Lymphocytes # (Auto) 0.8 x10^3/uL (1.0-4.8) 0.5 x10^3/uL (1.0-4.8) Monocytes # (Auto) 0.8 x10^3/uL (0.0-1.1) 0.3 x10^3/uL (0.0-1.1) Eosinophils # (Auto) 0.2 x10^3/uL (0.0-0.7) 0.0 x10^3/uL (0.0-0.7) Basophils # (Auto) 0.1 x10^3/uL (0.0-0.2) 0.0 x10^3/uL (0.0-0.2) Prothrombin Time 12.9 SEC (11.7-14.0) Prothromb Time International Ratio 1.0 (0.8-1.1) D-Dimer (Mesha) 0.38 ug/mlFEU (0.00-0.50) Sodium Level 141 mmol/L (136-145) 141 mmol/L (136-145) Potassium Level 3.7 mmol/L (3.5-5.1) 4.3 mmol/L (3.5-5.1) Chloride Level 103 mmol/L (98-107) 104 mmol/L (98-107) Carbon Dioxide Level 28 mmol/L (21-32) 30 mmol/L (21-32) Anion Gap 10 (6-14) 7 (6-14) Blood Urea Nitrogen 10 mg/dL (8-26) 11 mg/dL (8-26) Creatinine 0.6 mg/dL (0.7-1.3) 0.7 mg/dL (0.7-1.3) Estimated GFR (Cockcroft-Gault) 136.1 113.9 Glucose Level 115 mg/dL (70-99) 113 mg/dL (70-99) Calcium Level 9.2 mg/dL (8.5-10.1) 8.6 mg/dL (8.5-10.1) Magnesium Level 1.9 mg/dL (1.8-2.4) Total Bilirubin 0.1 mg/dL (0.2-1.0) Direct Bilirubin < 0.1 mg/dL (0.0-0.2) Aspartate Amino Transf (AST/SGOT) 23 U/L (15-37) Alanine Aminotransferase (ALT/SGPT) 22 U/L (16-63) Alkaline Phosphatase 49 U/L (46-116) Creatine Kinase 90 U/L (39-308) Creatine Kinase MB (Mass) 3.7 ng/mL (0.0-3.6) Creatine Kinase MB Relative Index 4.1 % (0-4) Troponin I Quantitative < 0.017 ng/mL (0.000-0.055) < 0.017 ng/mL (0.000-0.055) YY-Wya-[id number]-Type Natriuretic Peptide 352 pg/mL (0-124) Total Protein 7.5 g/dL (6.4-8.2) Albumin 3.2 g/dL (3.4-5.0) Lipase 137 U/L (73-393) Thyroid Stimulating Hormone (TSH) 2.988 uIU/mL (0.358-3.74) Urine Collection Type Unknown Urine Color Yellow Urine Clarity Clear Urine pH 6.5 Urine Specific [place] 1.015 Urine Protein Negative mg/dL (NEG-TRACE) Urine Glucose (UA) Negative mg/dL (NEG) Urine Ketones (Stick) Negative mg/dL (NEG) Urine Blood Negative (NEG) Urine Nitrite Negative (NEG) Urine Bilirubin Negative (NEG) Urine Urobilinogen Dipstick 0.2 mg/dL (0.2 mg/dL) Urine Leukocyte Esterase Negative (NEG) Urine RBC Occ /HPF (0-2) Urine WBC Occ /HPF (0-4) Urine Squamous Epithelial Cells Few /LPF Urine Bacteria 0 /HPF (0-FEW) Urine Mucus Mod /LPF Urine Opiates Screen Pos (NEG) Urine Methadone Screen Neg (NEG) Urine Barbiturates Neg (NEG) Urine Phencyclidine Screen Neg (NEG) Urine Amphetamine/Methamphetamine Neg (NEG) Urine Benzodiazepines Screen Pos (NEG) Urine Cocaine Screen Pos (NEG) Urine Cannabinoids Screen Neg (NEG) Urine Ethyl Alcohol Pos (NEG) O2 Saturation 94 % (92-99) Arterial Blood pH 7.39 (7.35-7.45) Arterial Blood pCO2 at Patient Temp 50 mmHg (35-46) Arterial Blood pO2 at Patient Temp 72 mmHg (65-108) Arterial Blood HCO3 30 mmol/L (21-28) Arterial Blood Base Excess 4 mmol/L (-3-3) FiO2 21 Test 06/08/17 09:20 Troponin I Quantitative < 0.017 ng/mL (0.000-0.055) Laboratory Tests Test 06/07/17 19:30 06/07/17 20:35 06/07/17 20:49 06/08/17 03:20 White Blood Count 5.8 x10^3/uL (4.0-11.0) 4.2 x10^3/uL (4.0-11.0) Red Blood Count 4.01 x10^6/uL (4.30-5.70) 3.87 x10^6/uL (4.30-5.70) Hemoglobin 12.8 g/dL (13.0-17.5) 12.4 g/dL (13.0-17.5) Hematocrit 38.0 % (39.0-53.0) 37.0 % (39.0-53.0) Mean Corpuscular Volume 95 fL (79-100) 96 fL (79-100) Mean Corpuscular Hemoglobin 32 pg (25-35) 32 pg (25-35) Mean Corpuscular Hemoglobin Concent 34 g/dL (31-37) 33 g/dL (31-37) Red Cell Distribution Width 14.0 % (11.5-14.5) 13.6 % (11.5-14.5) Platelet Count 245 x10^3/uL (140-400) 228 x10^3/uL (140-400) Neutrophils (%) (Auto) 69 % (31-73) 80 % (31-73) Lymphocytes (%) (Auto) 14 % (24-48) 13 % (24-48) Monocytes (%) (Auto) 14 % (0-9) 7 % (0-9) Eosinophils (%) (Auto) 3 % (0-3) 0 % (0-3) Basophils (%) (Auto) 1 % (0-3) 1 % (0-3) Neutrophils # (Auto) 4.0 x10^3uL (1.8-7.7) 3.3 x10^3uL (1.8-7.7) Lymphocytes # (Auto) 0.8 x10^3/uL (1.0-4.8) 0.5 x10^3/uL (1.0-4.8) Monocytes # (Auto) 0.8 x10^3/uL (0.0-1.1) 0.3 x10^3/uL (0.0-1.1) Eosinophils # (Auto) 0.2 x10^3/uL (0.0-0.7) 0.0 x10^3/uL (0.0-0.7) Basophils # (Auto) 0.1 x10^3/uL (0.0-0.2) 0.0 x10^3/uL (0.0-0.2) Prothrombin Time 12.9 SEC (11.7-14.0) Prothromb Time International Ratio 1.0 (0.8-1.1) D-Dimer (Mesha) 0.38 ug/mlFEU (0.00-0.50) Sodium Level 141 mmol/L (136-145) 141 mmol/L (136-145) Potassium Level 3.7 mmol/L (3.5-5.1) 4.3 mmol/L (3.5-5.1) Chloride Level 103 mmol/L (98-107) 104 mmol/L (98-107) Carbon Dioxide Level 28 mmol/L (21-32) 30 mmol/L (21-32) Anion Gap 10 (6-14) 7 (6-14) Blood Urea Nitrogen 10 mg/dL (8-26) 11 mg/dL (8-26) Creatinine 0.6 mg/dL (0.7-1.3) 0.7 mg/dL (0.7-1.3) Estimated GFR (Cockcroft-Gault) 136.1 113.9 Glucose Level 115 mg/dL (70-99) 113 mg/dL (70-99) Calcium Level 9.2 mg/dL (8.5-10.1) 8.6 mg/dL (8.5-10.1) Magnesium Level 1.9 mg/dL (1.8-2.4) Total Bilirubin 0.1 mg/dL (0.2-1.0) Direct Bilirubin < 0.1 mg/dL (0.0-0.2) Aspartate Amino Transf (AST/SGOT) 23 U/L (15-37) Alanine Aminotransferase (ALT/SGPT) 22 U/L (16-63) Alkaline Phosphatase 49 U/L (46-116) Creatine Kinase 90 U/L (39-308) Creatine Kinase MB (Mass) 3.7 ng/mL (0.0-3.6) Creatine Kinase MB Relative Index 4.1 % (0-4) Troponin I Quantitative < 0.017 ng/mL (0.000-0.055) < 0.017 ng/mL (0.000-0.055) QG-Xqp-[id number]-Type Natriuretic Peptide 352 pg/mL (0-124) Total Protein 7.5 g/dL (6.4-8.2) Albumin 3.2 g/dL (3.4-5.0) Lipase 137 U/L (73-393) Thyroid Stimulating Hormone (TSH) 2.988 uIU/mL (0.358-3.74) Urine Collection Type Unknown Urine Color Yellow Urine Clarity Clear Urine pH 6.5 Urine Specific [place] 1.015 Urine Protein Negative mg/dL (NEG-TRACE) Urine Glucose (UA) Negative mg/dL (NEG) Urine Ketones (Stick) Negative mg/dL (NEG) Urine Blood Negative (NEG) Urine Nitrite Negative (NEG) Urine Bilirubin Negative (NEG) Urine Urobilinogen Dipstick 0.2 mg/dL (0.2 mg/dL) Urine Leukocyte Esterase Negative (NEG) Urine RBC Occ /HPF (0-2) Urine WBC Occ /HPF (0-4) Urine Squamous Epithelial Cells Few /LPF Urine Bacteria 0 /HPF (0-FEW) Urine Mucus Mod /LPF Urine Opiates Screen Pos (NEG) Urine Methadone Screen Neg (NEG) Urine Barbiturates Neg (NEG) Urine Phencyclidine Screen Neg (NEG) Urine Amphetamine/Methamphetamine Neg (NEG) Urine Benzodiazepines Screen Pos (NEG) Urine Cocaine Screen Pos (NEG) Urine Cannabinoids Screen Neg (NEG) Urine Ethyl Alcohol Pos (NEG) O2 Saturation 94 % (92-99) Arterial Blood pH 7.39 (7.35-7.45) Arterial Blood pCO2 at Patient Temp 50 mmHg (35-46) Arterial Blood pO2 at Patient Temp 72 mmHg (65-108) Arterial Blood HCO3 30 mmol/L (21-28) Arterial Blood Base Excess 4 mmol/L (-3-3) FiO2 21 Test 06/08/17 09:20 Troponin I Quantitative < 0.017 ng/mL (0.000-0.055) Images Images CP r/o [facility] Probably severe acid reflux as he ate Barbecued food and drank two cans of beer VTE Prophylaxis Ordered VTE Prophylaxis Devices: No VTE Pharmacological Prophylaxi: No Assessment/Plan Assessment/Plan Will start him on PPI Mylanta/Maloox 30 ml q4h prn continue all other medication MANI MCHUGH MD Jun 08, 2017 13:44
[2017-06-08] MEDS ORDERED: MAG HYDROX/ALUMINUM HYD/SIMETH 30 ML ORAL.SUSP PO PRN (13:45)
[2017-06-08] MEDS ORDERED: PANTOPRAZOLE 40 MG TABLET.DR. PO ONE (13:45)
--- NOTE | 2017-06-08 13:52 | PDOC ---
PROGRESS NOTES Subjective Subjective continues to c/o CP that is retrosternal SOB Cardiac enzymes r/o ME Cariology team recommended PPI Objective Objective Vital Signs Date Time Temp Pulse Resp B/P (MAP) Pulse Ox O2 Delivery O2 Flow Rate FiO2 06/08/17 11:10 Room Air 06/08/17 10:43 98.2 90 13 97/63 (74) 95 98.2 06/08/17 08:00 2.0 Intake and Output 06/08/17 07:00 Intake Total 250 ml Balance 250 ml Intake Oral 0 ml IV Total 250 ml # Voids 1 # Bowel Movements 1 Physical Exam Physical Exam Setting on the edge of the bed Continue to have recurrent bouts of dry hacking cough Otherwise stable No wheezing Abdomen: Normal bowel sounds Heart: Regular rate, Normal S1, Normal S2 Extremities: No clubbing, No cyanosis, No edema General: Alert, Oriented X3, Cooperative, No acute distress HEENT: Atraumatic, PERRLA, EOMI, Other (Equally reduced chest expansion and reduced air entry no creopitation or rhonchi) MUSCULOSKELETAL: No joint tenderness Neck: Supple, No JVD, No thyromegaly, No LAD Neuro: Normal gait, Normal speech, Strength at 5/5 X4 ext, Normal tone, Sensation intact, Cranial nerves 3-12 NL Psych/Mental Status: Mental status NL Skin: No rashes Diagnosis Problems: (1) COPD exacerbation (2) Respiratory distress (3) Acute and chronic respiratory failure (4) Failure to thrive (5) Cough (6) Atypical chest pain Other Start PPI Mylanta reevaluate tomorrow Plan Plan of Care Problems Medical Problems: (1) COPD (chronic obstructive pulmonary disease) Status: Acute Comment Labs Laboratory Tests Test 06/07/17 19:30 06/07/17 20:35 06/07/17 20:49 06/08/17 03:20 White Blood Count 5.8 x10^3/uL (4.0-11.0) 4.2 x10^3/uL (4.0-11.0) Red Blood Count 4.01 x10^6/uL (4.30-5.70) 3.87 x10^6/uL (4.30-5.70) Hemoglobin 12.8 g/dL (13.0-17.5) 12.4 g/dL (13.0-17.5) Hematocrit 38.0 % (39.0-53.0) 37.0 % (39.0-53.0) Mean Corpuscular Volume 95 fL (79-100) 96 fL (79-100) Mean Corpuscular Hemoglobin 32 pg (25-35) 32 pg (25-35) Mean Corpuscular Hemoglobin Concent 34 g/dL (31-37) 33 g/dL (31-37) Red Cell Distribution Width 14.0 % (11.5-14.5) 13.6 % (11.5-14.5) Platelet Count 245 x10^3/uL (140-400) 228 x10^3/uL (140-400) Neutrophils (%) (Auto) 69 % (31-73) 80 % (31-73) Lymphocytes (%) (Auto) 14 % (24-48) 13 % (24-48) Monocytes (%) (Auto) 14 % (0-9) 7 % (0-9) Eosinophils (%) (Auto) 3 % (0-3) 0 % (0-3) Basophils (%) (Auto) 1 % (0-3) 1 % (0-3) Neutrophils # (Auto) 4.0 x10^3uL (1.8-7.7) 3.3 x10^3uL (1.8-7.7) Lymphocytes # (Auto) 0.8 x10^3/uL (1.0-4.8) 0.5 x10^3/uL (1.0-4.8) Monocytes # (Auto) 0.8 x10^3/uL (0.0-1.1) 0.3 x10^3/uL (0.0-1.1) Eosinophils # (Auto) 0.2 x10^3/uL (0.0-0.7) 0.0 x10^3/uL (0.0-0.7) Basophils # (Auto) 0.1 x10^3/uL (0.0-0.2) 0.0 x10^3/uL (0.0-0.2) Prothrombin Time 12.9 SEC (11.7-14.0) Prothromb Time International Ratio 1.0 (0.8-1.1) D-Dimer (Mesha) 0.38 ug/mlFEU (0.00-0.50) Sodium Level 141 mmol/L (136-145) 141 mmol/L (136-145) Potassium Level 3.7 mmol/L (3.5-5.1) 4.3 mmol/L (3.5-5.1) Chloride Level 103 mmol/L (98-107) 104 mmol/L (98-107) Carbon Dioxide Level 28 mmol/L (21-32) 30 mmol/L (21-32) Anion Gap 10 (6-14) 7 (6-14) Blood Urea Nitrogen 10 mg/dL (8-26) 11 mg/dL (8-26) Creatinine 0.6 mg/dL (0.7-1.3) 0.7 mg/dL (0.7-1.3) Estimated GFR (Cockcroft-Gault) 136.1 113.9 Glucose Level 115 mg/dL (70-99) 113 mg/dL (70-99) Calcium Level 9.2 mg/dL (8.5-10.1) 8.6 mg/dL (8.5-10.1) Magnesium Level 1.9 mg/dL (1.8-2.4) Total Bilirubin 0.1 mg/dL (0.2-1.0) Direct Bilirubin < 0.1 mg/dL (0.0-0.2) Aspartate Amino Transf (AST/SGOT) 23 U/L (15-37) Alanine Aminotransferase (ALT/SGPT) 22 U/L (16-63) Alkaline Phosphatase 49 U/L (46-116) Creatine Kinase 90 U/L (39-308) Creatine Kinase MB (Mass) 3.7 ng/mL (0.0-3.6) Creatine Kinase MB Relative Index 4.1 % (0-4) Troponin I Quantitative < 0.017 ng/mL (0.000-0.055) < 0.017 ng/mL (0.000-0.055) GA-Pou-Z-Type Natriuretic Peptide 352 pg/mL (0-124) Total Protein 7.5 g/dL (6.4-8.2) Albumin 3.2 g/dL (3.4-5.0) Lipase 137 U/L (73-393) Thyroid Stimulating Hormone (TSH) 2.988 uIU/mL (0.358-3.74) Urine Collection Type Unknown Urine Color Yellow Urine Clarity Clear Urine pH 6.5 Urine Specific [place] 1.015 Urine Protein Negative mg/dL (NEG-TRACE) Urine Glucose (UA) Negative mg/dL (NEG) Urine Ketones (Stick) Negative mg/dL (NEG) Urine Blood Negative (NEG) Urine Nitrite Negative (NEG) Urine Bilirubin Negative (NEG) Urine Urobilinogen Dipstick 0.2 mg/dL (0.2 mg/dL) Urine Leukocyte Esterase Negative (NEG) Urine RBC Occ /HPF (0-2) Urine WBC Occ /HPF (0-4) Urine Squamous Epithelial Cells Few /LPF Urine Bacteria 0 /HPF (0-FEW) Urine Mucus Mod /LPF Urine Opiates Screen Pos (NEG) Urine Methadone Screen Neg (NEG) Urine Barbiturates Neg (NEG) Urine Phencyclidine Screen Neg (NEG) Urine Amphetamine/Methamphetamine Neg (NEG) Urine Benzodiazepines Screen Pos (NEG) Urine Cocaine Screen Pos (NEG) Urine Cannabinoids Screen Neg (NEG) Urine Ethyl Alcohol Pos (NEG) O2 Saturation 94 % (92-99) Arterial Blood pH 7.39 (7.35-7.45) Arterial Blood pCO2 at Patient Temp 50 mmHg (35-46) Arterial Blood pO2 at Patient Temp 72 mmHg (65-108) Arterial Blood HCO3 30 mmol/L (21-28) Arterial Blood Base Excess 4 mmol/L (-3-3) FiO2 21 Test 06/08/17 09:20 Troponin I Quantitative < 0.017 ng/mL (0.000-0.055) Laboratory Tests Test 06/07/17 19:30 06/07/17 20:35 06/07/17 20:49 06/08/17 03:20 White Blood Count 5.8 x10^3/uL (4.0-11.0) 4.2 x10^3/uL (4.0-11.0) Red Blood Count 4.01 x10^6/uL (4.30-5.70) 3.87 x10^6/uL (4.30-5.70) Hemoglobin 12.8 g/dL (13.0-17.5) 12.4 g/dL (13.0-17.5) Hematocrit 38.0 % (39.0-53.0) 37.0 % (39.0-53.0) Mean Corpuscular Volume 95 fL (79-100) 96 fL (79-100) Mean Corpuscular Hemoglobin 32 pg (25-35) 32 pg (25-35) Mean Corpuscular Hemoglobin Concent 34 g/dL (31-37) 33 g/dL (31-37) Red Cell Distribution Width 14.0 % (11.5-14.5) 13.6 % (11.5-14.5) Platelet Count 245 x10^3/uL (140-400) 228 x10^3/uL (140-400) Neutrophils (%) (Auto) 69 % (31-73) 80 % (31-73) Lymphocytes (%) (Auto) 14 % (24-48) 13 % (24-48) Monocytes (%) (Auto) 14 % (0-9) 7 % (0-9) Eosinophils (%) (Auto) 3 % (0-3) 0 % (0-3) Basophils (%) (Auto) 1 % (0-3) 1 % (0-3) Neutrophils # (Auto) 4.0 x10^3uL (1.8-7.7) 3.3 x10^3uL (1.8-7.7) Lymphocytes # (Auto) 0.8 x10^3/uL (1.0-4.8) 0.5 x10^3/uL (1.0-4.8) Monocytes # (Auto) 0.8 x10^3/uL (0.0-1.1) 0.3 x10^3/uL (0.0-1.1) Eosinophils # (Auto) 0.2 x10^3/uL (0.0-0.7) 0.0 x10^3/uL (0.0-0.7) Basophils # (Auto) 0.1 x10^3/uL (0.0-0.2) 0.0 x10^3/uL (0.0-0.2) Prothrombin Time 12.9 SEC (11.7-14.0) Prothromb Time International Ratio 1.0 (0.8-1.1) D-Dimer (Mesha) 0.38 ug/mlFEU (0.00-0.50) Sodium Level 141 mmol/L (136-145) 141 mmol/L (136-145) Potassium Level 3.7 mmol/L (3.5-5.1) 4.3 mmol/L (3.5-5.1) Chloride Level 103 mmol/L (98-107) 104 mmol/L (98-107) Carbon Dioxide Level 28 mmol/L (21-32) 30 mmol/L (21-32) Anion Gap 10 (6-14) 7 (6-14) Blood Urea Nitrogen 10 mg/dL (8-26) 11 mg/dL (8-26) Creatinine 0.6 mg/dL (0.7-1.3) 0.7 mg/dL (0.7-1.3) Estimated GFR (Cockcroft-Gault) 136.1 113.9 Glucose Level 115 mg/dL (70-99) 113 mg/dL (70-99) Calcium Level 9.2 mg/dL (8.5-10.1) 8.6 mg/dL (8.5-10.1) Magnesium Level 1.9 mg/dL (1.8-2.4) Total Bilirubin 0.1 mg/dL (0.2-1.0) Direct Bilirubin < 0.1 mg/dL (0.0-0.2) Aspartate Amino Transf (AST/SGOT) 23 U/L (15-37) Alanine Aminotransferase (ALT/SGPT) 22 U/L (16-63) Alkaline Phosphatase 49 U/L (46-116) Creatine Kinase 90 U/L (39-308) Creatine Kinase MB (Mass) 3.7 ng/mL (0.0-3.6) Creatine Kinase MB Relative Index 4.1 % (0-4) Troponin I Quantitative < 0.017 ng/mL (0.000-0.055) < 0.017 ng/mL (0.000-0.055) BV-Apc-C-Type Natriuretic Peptide 352 pg/mL (0-124) Total Protein 7.5 g/dL (6.4-8.2) Albumin 3.2 g/dL (3.4-5.0) Lipase 137 U/L (73-393) Thyroid Stimulating Hormone (TSH) 2.988 uIU/mL (0.358-3.74) Urine Collection Type Unknown Urine Color Yellow Urine Clarity Clear Urine pH 6.5 Urine Specific [place] 1.015 Urine Protein Negative mg/dL (NEG-TRACE) Urine Glucose (UA) Negative mg/dL (NEG) Urine Ketones (Stick) Negative mg/dL (NEG) Urine Blood Negative (NEG) Urine Nitrite Negative (NEG) Urine Bilirubin Negative (NEG) Urine Urobilinogen Dipstick 0.2 mg/dL (0.2 mg/dL) Urine Leukocyte Esterase Negative (NEG) Urine RBC Occ /HPF (0-2) Urine WBC Occ /HPF (0-4) Urine Squamous Epithelial Cells Few /LPF Urine Bacteria 0 /HPF (0-FEW) Urine Mucus Mod /LPF Urine Opiates Screen Pos (NEG) Urine Methadone Screen Neg (NEG) Urine Barbiturates Neg (NEG) Urine Phencyclidine Screen Neg (NEG) Urine Amphetamine/Methamphetamine Neg (NEG) Urine Benzodiazepines Screen Pos (NEG) Urine Cocaine Screen Pos (NEG) Urine Cannabinoids Screen Neg (NEG) Urine Ethyl Alcohol Pos (NEG) O2 Saturation 94 % (92-99) Arterial Blood pH 7.39 (7.35-7.45) Arterial Blood pCO2 at Patient Temp 50 mmHg (35-46) Arterial Blood pO2 at Patient Temp 72 mmHg (65-108) Arterial Blood HCO3 30 mmol/L (21-28) Arterial Blood Base Excess 4 mmol/L (-3-3) FiO2 21 Test 06/08/17 09:20 Troponin I Quantitative < 0.017 ng/mL (0.000-0.055) Medications Current Medications Albuterol/ Ipratropium (Duoneb) 3 ml 1X ONCE NEB Last administered on 19:40; Admin Dose 3 ML; Start 06/07/17 at 20:00; Stop 06/07/17 at 20:01; Status DC Methylprednisolone Sodium Succinate (SOLU-Medrol 125MG VIAL) 125 mg 1X ONCE IV Last administered on 06/07/17 19:44; Admin Dose 125 MG; Start 06/07/17 at 20:00 ; Stop 06/07/17 at 20:01; Status DC Albuterol/ Ipratropium (Duoneb) 3 ml STK-MED ONCE .ROUTE ; Start 06/07/17 at 19: 34; Stop 06/07/17 at 19:35; Status DC Morphine Sulfate 2 mg PRN Q15MIN PRN IV/SQ PAIN GREATER THAN 3/10 Last administered on 06/07/17 20:22; Admin Dose 2 MG; Start 06/07/17 at 20:15; Stop at 00:00; Status DC Azithromycin 250 ml @ 250 mls/hr 1X ONCE IV Last administered on 06/07/17 20: 42; Admin Dose 250 MLS/HR; Start 06/07/17 at 20:30; Stop 06/07/17 at 21:29; Status DC Ondansetron HCl (Zofran) 4 mg PRN Q8HRS PRN IV NAUSEA/VOMITING; Start 06/07/17 at 21:15; Stop 06/08/17 at 21:14 Morphine Sulfate 2 mg PRN Q4HRS PRN IV SEVERE PAIN; Start 06/07/17 at 21:15 Acetaminophen (Tylenol) 650 mg PRN Q4HRS PRN PO MILD PAIN/TEMP; Start 06/08/17 at 00:00 Benzonatate (Tessalon Perle) 100 mg PRN TID PRN PO COUGH Last administered on 09:14; Admin Dose 100 MG; Start 06/08/17 at 00:00 Ethambutol HCl (Myambutol) 800 mg DAILY PO Last administered on 06/08/17 09:14 ; Admin Dose 800 MG; Start 06/08/17 at 09:00 Acetaminophen/ Hydrocodone Bitart (Lortab 5/325) 1 tab PRN Q4HRS PRN PO MODERATE PAIN Last administered on 06/08/17 09:16; Admin Dose 1 TAB; Start at 00:00 Albuterol/ Ipratropium (Duoneb) 3 ml RTQID NEB Last administered on 06/08/17 10 :44; Admin Dose 3 ML; Start 06/08/17 at 08:00 Rifampin (Rifadin) 300 mg BID PO Last administered on 06/08/17 09:14; Admin Dose 300 MG; Start 06/08/17 at 09:00 Temazepam (Restoril) 15 mg HS PO ; Start 06/08/17 at 21:00 Non-Formulary Medication 1 vial Q4HRS NEB ; Start 06/08/17 at 00:00; Status UNV Non-Formulary Medication 1 puff PRN Q4HRS PRN INH SHORTNESS OF BREATH; Start at 00:00; Status UNV Escitalopram Oxalate (Lexapro) 10 mg DAILY PO Last administered on 06/08/17 09: 14; Admin Dose 10 MG; Start 06/08/17 at 09:00 Albuterol/ Ipratropium (Duoneb) 3 ml 1X ONCE NEB Last administered on 00:15; Admin Dose 3 ML; Start 06/08/17 at 00:30; Stop 06/08/17 at 00:31; Status DC Albuterol Sulfate (Ventolin Neb Soln) 2.5 mg PRN Q4HRS PRN NEB SHORTNESS OF BREATH; Start 06/08/17 at 00:15 Temazepam (Restoril) 15 mg 1X ONCE PO Last administered on 06/08/17 02:04; Admin Dose 15 MG; Start 06/08/17 at 02:00; Stop 06/08/17 at 02:01; Status DC Active Scripts Active Hydrocodone-Apap 5-325 (Hydrocodone Bit/Acetaminophen) 1 Each Tablet 1 Tab PO PRN Q4H PRN 30 Days Tessalon Perle (Benzonatate) 100 Mg Capsule 100 Mg PO TID PRN Reported Tylenol (Acetaminophen) 325 Mg Tablet 2 Tab PO PRN Q4HRS Albuterol Sulfate Conc Neb Soln (Albuterol Sulfate) 2.5 Mg/0.5 Ml Vial.neb 1 Vial NEB Q4HRS Proair Hfa Inhaler (Albuterol Sulfate) 8.5 Gm Hfa.aer.ad 1 Puff INH PRN Q4HRS PRN Duoneb 0.5-3(2.5) Mg/3 Ml (Albuterol/Ipratropium) 3 Ml Ampul.neb 3 Ml NEB QID Ethambutol Hcl 400 Mg Tablet 800 Mg DAILY Rifampin 300 Mg Capsule 300 Mg BID Escitalopram Oxalate 10 Mg Tablet 10 Mg DAILY Temazepam 15 Mg Capsule 1 Cap HS Vitals/I & O Vital Sign - Last 24 Hours 06/07/17 06/07/17 06/07/17 06/07/17 19:22 19:38 20:00 20:30 Temp 99.1 99.1 Pulse 111 104 98 Resp 28 24 22 B/P (MAP) 120/80 (93) 106/77 (87) 102/66 (78) Pulse Ox 93 95 96 93 O2 Delivery Room Air Nasal Cannula Nasal Cannula Room Air O2 Flow Rate 2.0 2.0 06/07/17 06/07/17 06/08/17 06/08/17 21:30 23:35 00:16 00:56 Temp 97.7 97.7 Pulse 96 90 Resp 24 20 B/P (MAP) 95/61 (72) 99/69 (79) Pulse Ox 93 92 95 O2 Delivery Room Air Room Air Room Air Room Air 06/08/17 06/08/17 06/08/17 06/08/17 03:00 06:54 07:52 08:00 Temp 97.4 97.0 97.4 97.0 Pulse 20 76 Resp 20 12 B/P (MAP) 100/64 (76) 110/66 (81) Pulse Ox 94 94 96 O2 Delivery Room Air Room Air Room Air Room Air O2 Flow Rate 2.0 06/08/17 06/08/17 06/08/17 06/08/17 09:16 10:43 10:44 11:10 Temp 98.2 98.2 Pulse 90 Resp 13 B/P (MAP) 97/63 (74) Pulse Ox 95 O2 Delivery Room Air Room Air Room Air Room Air Intake and Output 06/07/17 06/07/17 06/08/17 15:00 23:00 07:00 Intake Total 250 ml 0 ml Balance 250 ml 0 ml MANI MCHUGH MD Jun 08, 2017 13:52
[2017-06-08 14:48] VITALS: BP 112/56
[2017-06-08] MEDS: PANTOPRAZOLE 40 MG TABLET.DR. PO SCH (15:09)
--- NOTE | 2017-06-08 15:58 | PDOC2 ---
CONSULT Date of Consult Date of Consult DATE: 06/08/17 TIME: 15:58 Reason for Consult Reason for Consult: CHEST PAIN COUGH H/O MAC Referring Physician Referring Physician: DR MCHUGH Identification/Chief Complaint Chief Complaint COUGH CHEST PAIN Problems: Source Source: Chart review, Patient History of Present Illness Reason for Visit: PT WELL KNOWN TO ME H/O MAC CURRENTLY BEING TREATED WITH 3 DRUGS PRESENTED MAINLY FOR CHEST PAIN NO INCREASE SOA NO HEMOPTYSIS PT WITH PAROXYSMAL COUGH NO FEVER Past Medical History Cardiovascular: Other Pulmonary: COPD, Other (MAC on rifampin and ethambutol) CENTRAL NERVOUS SYSTEM: Other GI: No pertinent hx Heme/Onc: No pertinent hx Hepatobiliary: No pertinent hx Psych: Anxiety, Depression Musculoskeletal: No pain Rheumatologic: No pertinent hx Infectious disease: No pertinent hx Renal/: No pertinent hx Endocrine: No pertinent hx Past Surgical History Past Surgical History: Other Family History Family History: Cancer Social History Quit ALCOHOL: none Drugs: None, 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 Current Problem List Problem List Problems Medical Problems: (1) COPD (chronic obstructive pulmonary disease) Status: Acute Current Medications Current Medications Current Medications Albuterol/ Ipratropium (Duoneb) 3 ml 1X ONCE NEB Last administered on 19:40; Start 06/07/17 at 20:00; Stop 06/07/17 at 20:01; Status DC Methylprednisolone Sodium Succinate (SOLU-Medrol 125MG VIAL) 125 mg 1X ONCE IV Last administered on 06/07/17 19:44; Start 06/07/17 at 20:00; Stop 06/07/17 at 20:01; Status DC Albuterol/ Ipratropium (Duoneb) 3 ml STK-MED ONCE .ROUTE ; Start 06/07/17 at 19: 34; Stop 06/07/17 at 19:35; Status DC Morphine Sulfate 2 mg PRN Q15MIN PRN IV/SQ PAIN GREATER THAN 3/10 Last administered on 06/07/17 20:22; Start 06/07/17 at 20:15; Stop 06/08/17 at 00:00; Status DC Azithromycin 250 ml @ 250 mls/hr 1X ONCE IV Last administered on 06/07/17 20: 42; Start 06/07/17 at 20:30; Stop 06/07/17 at 21:29; Status DC Ondansetron HCl (Zofran) 4 mg PRN Q8HRS PRN IV NAUSEA/VOMITING; Start 06/07/17 at 21:15; Stop 06/08/17 at 21:14 Morphine Sulfate 2 mg PRN Q4HRS PRN IV SEVERE PAIN; Start 06/07/17 at 21:15 Acetaminophen (Tylenol) 650 mg PRN Q4HRS PRN PO MILD PAIN/TEMP; Start 06/08/17 at 00:00 Benzonatate (Tessalon Perle) 100 mg PRN TID PRN PO COUGH Last administered on 09:14; Start 06/08/17 at 00:00 Ethambutol HCl (Myambutol) 800 mg DAILY PO Last administered on 06/08/17 09:14 ; Start 06/08/17 at 09:00 Acetaminophen/ Hydrocodone Bitart (Lortab 5/325) 1 tab PRN Q4HRS PRN PO MODERATE PAIN Last administered on 06/08/17 15:09; Start 06/08/17 at 00:00 Albuterol/ Ipratropium (Duoneb) 3 ml RTQID NEB Last administered on 06/08/17 14 :44; Start 06/08/17 at 08:00 Rifampin (Rifadin) 300 mg BID PO Last administered on 06/08/17 09:14; Start 06/08/17 at 09:00 Temazepam (Restoril) 15 mg HS PO ; Start 06/08/17 at 21:00 Non-Formulary Medication 1 vial Q4HRS NEB ; Start 06/08/17 at 00:00; Status UNV Non-Formulary Medication 1 puff PRN Q4HRS PRN INH SHORTNESS OF BREATH; Start at 00:00; Status UNV Escitalopram Oxalate (Lexapro) 10 mg DAILY PO Last administered on 06/08/17 09: 14; Start 06/08/17 at 09:00 Albuterol/ Ipratropium (Duoneb) 3 ml 1X ONCE NEB Last administered on 00:15; Start 06/08/17 at 00:30; Stop 06/08/17 at 00:31; Status DC Albuterol Sulfate (Ventolin Neb Soln) 2.5 mg PRN Q4HRS PRN NEB SHORTNESS OF BREATH; Start 06/08/17 at 00:15 Temazepam (Restoril) 15 mg 1X ONCE PO Last administered on 06/08/17 02:04; Start 06/08/17 at 02:00; Stop 06/08/17 at 02:01; Status DC Pantoprazole Sodium (Protonix) 40 mg DAILYAC PO Last administered on 06/08/17 15:09; Start 06/08/17 at 13:45 Al Hydroxide/Mg Hydroxide (Mylanta Plus Xs) 30 ml PRN Q2HR PRN PO HEARTBURN / GAS Last administered on 06/08/17 15:06; Start 06/08/17 at 13:45 Pantoprazole Sodium (Protonix) 40 mg 1X ONCE PO ; Start 06/08/17 at 13:45; Stop 06/08/17 at 13:46; Status UNV Active Scripts Active Hydrocodone-Apap 5-325 (Hydrocodone Bit/Acetaminophen) 1 Each Tablet 1 Tab PO PRN Q4H PRN 30 Days Tessalon Perle (Benzonatate) 100 Mg Capsule 100 Mg PO TID PRN Reported Tylenol (Acetaminophen) 325 Mg Tablet 2 Tab PO PRN Q4HRS Albuterol Sulfate Conc Neb Soln (Albuterol Sulfate) 2.5 Mg/0.5 Ml Vial.neb 1 Vial NEB Q4HRS Proair Hfa Inhaler (Albuterol Sulfate) 8.5 Gm Hfa.aer.ad 1 Puff INH PRN Q4HRS PRN Duoneb 0.5-3(2.5) Mg/3 Ml (Albuterol/Ipratropium) 3 Ml Ampul.neb 3 Ml NEB QID Ethambutol Hcl 400 Mg Tablet 800 Mg DAILY Rifampin 300 Mg Capsule 300 Mg BID Escitalopram Oxalate 10 Mg Tablet 10 Mg DAILY Temazepam 15 Mg Capsule 1 Cap HS Allergies Allergies: Coded Allergies: No Known Drug Allergies (Unverified , 02/02/16) Physical Exam General: Alert, No acute distress HEENT: EOMI Lungs: Normal air movement Heart: Regular rate, Normal S1, Normal S2 Abdomen: Normal bowel sounds, Soft Extremities: No clubbing, No cyanosis Skin: No rashes, No breakdown, No significant lesion Psych/Mental Status: Mental status NL Vitals VITALS Vital Signs Date Time Temp Pulse Resp B/P (MAP) Pulse Ox O2 Delivery O2 Flow Rate FiO2 06/08/17 15:09 Room Air 06/08/17 14:48 97.8 87 12 112/56 (74) 95 97.8 06/08/17 08:00 2.0 Labs Labs Laboratory Tests Test 06/07/17 19:30 06/07/17 20:35 06/07/17 20:49 06/08/17 03:20 White Blood Count 5.8 x10^3/uL (4.0-11.0) 4.2 x10^3/uL (4.0-11.0) Red Blood Count 4.01 x10^6/uL (4.30-5.70) 3.87 x10^6/uL (4.30-5.70) Hemoglobin 12.8 g/dL (13.0-17.5) 12.4 g/dL (13.0-17.5) Hematocrit 38.0 % (39.0-53.0) 37.0 % (39.0-53.0) Mean Corpuscular Volume 95 fL (79-100) 96 fL (79-100) Mean Corpuscular Hemoglobin 32 pg (25-35) 32 pg (25-35) Mean Corpuscular Hemoglobin Concent 34 g/dL (31-37) 33 g/dL (31-37) Red Cell Distribution Width 14.0 % (11.5-14.5) 13.6 % (11.5-14.5) Platelet Count 245 x10^3/uL (140-400) 228 x10^3/uL (140-400) Neutrophils (%) (Auto) 69 % (31-73) 80 % (31-73) Lymphocytes (%) (Auto) 14 % (24-48) 13 % (24-48) Monocytes (%) (Auto) 14 % (0-9) 7 % (0-9) Eosinophils (%) (Auto) 3 % (0-3) 0 % (0-3) Basophils (%) (Auto) 1 % (0-3) 1 % (0-3) Neutrophils # (Auto) 4.0 x10^3uL (1.8-7.7) 3.3 x10^3uL (1.8-7.7) Lymphocytes # (Auto) 0.8 x10^3/uL (1.0-4.8) 0.5 x10^3/uL (1.0-4.8) Monocytes # (Auto) 0.8 x10^3/uL (0.0-1.1) 0.3 x10^3/uL (0.0-1.1) Eosinophils # (Auto) 0.2 x10^3/uL (0.0-0.7) 0.0 x10^3/uL (0.0-0.7) Basophils # (Auto) 0.1 x10^3/uL (0.0-0.2) 0.0 x10^3/uL (0.0-0.2) Prothrombin Time 12.9 SEC (11.7-14.0) Prothromb Time International Ratio 1.0 (0.8-1.1) D-Dimer (Mesha) 0.38 ug/mlFEU (0.00-0.50) Sodium Level 141 mmol/L (136-145) 141 mmol/L (136-145) Potassium Level 3.7 mmol/L (3.5-5.1) 4.3 mmol/L (3.5-5.1) Chloride Level 103 mmol/L (98-107) 104 mmol/L (98-107) Carbon Dioxide Level 28 mmol/L (21-32) 30 mmol/L (21-32) Anion Gap 10 (6-14) 7 (6-14) Blood Urea Nitrogen 10 mg/dL (8-26) 11 mg/dL (8-26) Creatinine 0.6 mg/dL (0.7-1.3) 0.7 mg/dL (0.7-1.3) Estimated GFR (Cockcroft-Gault) 136.1 113.9 Glucose Level 115 mg/dL (70-99) 113 mg/dL (70-99) Calcium Level 9.2 mg/dL (8.5-10.1) 8.6 mg/dL (8.5-10.1) Magnesium Level 1.9 mg/dL (1.8-2.4) Total Bilirubin 0.1 mg/dL (0.2-1.0) Direct Bilirubin < 0.1 mg/dL (0.0-0.2) Aspartate Amino Transf (AST/SGOT) 23 U/L (15-37) Alanine Aminotransferase (ALT/SGPT) 22 U/L (16-63) Alkaline Phosphatase 49 U/L (46-116) Creatine Kinase 90 U/L (39-308) Creatine Kinase MB (Mass) 3.7 ng/mL (0.0-3.6) Creatine Kinase MB Relative Index 4.1 % (0-4) Troponin I Quantitative < 0.017 ng/mL (0.000-0.055) < 0.017 ng/mL (0.000-0.055) WG-Heq-K-Type Natriuretic Peptide 352 pg/mL (0-124) Total Protein 7.5 g/dL (6.4-8.2) Albumin 3.2 g/dL (3.4-5.0) Lipase 137 U/L (73-393) Thyroid Stimulating Hormone (TSH) 2.988 uIU/mL (0.358-3.74) Urine Collection Type Unknown Urine Color Yellow Urine Clarity Clear Urine pH 6.5 Urine Specific [place] 1.015 Urine Protein Negative mg/dL (NEG-TRACE) Urine Glucose (UA) Negative mg/dL (NEG) Urine Ketones (Stick) Negative mg/dL (NEG) Urine Blood Negative (NEG) Urine Nitrite Negative (NEG) Urine Bilirubin Negative (NEG) Urine Urobilinogen Dipstick 0.2 mg/dL (0.2 mg/dL) Urine Leukocyte Esterase Negative (NEG) Urine RBC Occ /HPF (0-2) Urine WBC Occ /HPF (0-4) Urine Squamous Epithelial Cells Few /LPF Urine Bacteria 0 /HPF (0-FEW) Urine Mucus Mod /LPF Urine Opiates Screen Pos (NEG) Urine Methadone Screen Neg (NEG) Urine Barbiturates Neg (NEG) Urine Phencyclidine Screen Neg (NEG) Urine Amphetamine/Methamphetamine Neg (NEG) Urine Benzodiazepines Screen Pos (NEG) Urine Cocaine Screen Pos (NEG) Urine Cannabinoids Screen Neg (NEG) Urine Ethyl Alcohol Pos (NEG) O2 Saturation 94 % (92-99) Arterial Blood pH 7.39 (7.35-7.45) Arterial Blood pCO2 at Patient Temp 50 mmHg (35-46) Arterial Blood pO2 at Patient Temp 72 mmHg (65-108) Arterial Blood HCO3 30 mmol/L (21-28) Arterial Blood Base Excess 4 mmol/L (-3-3) FiO2 21 Test 06/08/17 09:20 Troponin I Quantitative < 0.017 ng/mL (0.000-0.055) Laboratory Tests Test 06/07/17 19:30 06/07/17 20:35 06/07/17 20:49 06/08/17 03:20 White Blood Count 5.8 x10^3/uL (4.0-11.0) 4.2 x10^3/uL (4.0-11.0) Red Blood Count 4.01 x10^6/uL (4.30-5.70) 3.87 x10^6/uL (4.30-5.70) Hemoglobin 12.8 g/dL (13.0-17.5) 12.4 g/dL (13.0-17.5) Hematocrit 38.0 % (39.0-53.0) 37.0 % (39.0-53.0) Mean Corpuscular Volume 95 fL (79-100) 96 fL (79-100) Mean Corpuscular Hemoglobin 32 pg (25-35) 32 pg (25-35) Mean Corpuscular Hemoglobin Concent 34 g/dL (31-37) 33 g/dL (31-37) Red Cell Distribution Width 14.0 % (11.5-14.5) 13.6 % (11.5-14.5) Platelet Count 245 x10^3/uL (140-400) 228 x10^3/uL (140-400) Neutrophils (%) (Auto) 69 % (31-73) 80 % (31-73) Lymphocytes (%) (Auto) 14 % (24-48) 13 % (24-48) Monocytes (%) (Auto) 14 % (0-9) 7 % (0-9) Eosinophils (%) (Auto) 3 % (0-3) 0 % (0-3) Basophils (%) (Auto) 1 % (0-3) 1 % (0-3) Neutrophils # (Auto) 4.0 x10^3uL (1.8-7.7) 3.3 x10^3uL (1.8-7.7) Lymphocytes # (Auto) 0.8 x10^3/uL (1.0-4.8) 0.5 x10^3/uL (1.0-4.8) Monocytes # (Auto) 0.8 x10^3/uL (0.0-1.1) 0.3 x10^3/uL (0.0-1.1) Eosinophils # (Auto) 0.2 x10^3/uL (0.0-0.7) 0.0 x10^3/uL (0.0-0.7) Basophils # (Auto) 0.1 x10^3/uL (0.0-0.2) 0.0 x10^3/uL (0.0-0.2) Prothrombin Time 12.9 SEC (11.7-14.0) Prothromb Time International Ratio 1.0 (0.8-1.1) D-Dimer (Mesha) 0.38 ug/mlFEU (0.00-0.50) Sodium Level 141 mmol/L (136-145) 141 mmol/L (136-145) Potassium Level 3.7 mmol/L (3.5-5.1) 4.3 mmol/L (3.5-5.1) Chloride Level 103 mmol/L (98-107) 104 mmol/L (98-107) Carbon Dioxide Level 28 mmol/L (21-32) 30 mmol/L (21-32) Anion Gap 10 (6-14) 7 (6-14) Blood Urea Nitrogen 10 mg/dL (8-26) 11 mg/dL (8-26) Creatinine 0.6 mg/dL (0.7-1.3) 0.7 mg/dL (0.7-1.3) Estimated GFR (Cockcroft-Gault) 136.1 113.9 Glucose Level 115 mg/dL (70-99) 113 mg/dL (70-99) Calcium Level 9.2 mg/dL (8.5-10.1) 8.6 mg/dL (8.5-10.1) Magnesium Level 1.9 mg/dL (1.8-2.4) Total Bilirubin 0.1 mg/dL (0.2-1.0) Direct Bilirubin < 0.1 mg/dL (0.0-0.2) Aspartate Amino Transf (AST/SGOT) 23 U/L (15-37) Alanine Aminotransferase (ALT/SGPT) 22 U/L (16-63) Alkaline Phosphatase 49 U/L (46-116) Creatine Kinase 90 U/L (39-308) Creatine Kinase MB (Mass) 3.7 ng/mL (0.0-3.6) Creatine Kinase MB Relative Index 4.1 % (0-4) Troponin I Quantitative < 0.017 ng/mL (0.000-0.055) < 0.017 ng/mL (0.000-0.055) DO-Zjh-G-Type Natriuretic Peptide 352 pg/mL (0-124) Total Protein 7.5 g/dL (6.4-8.2) Albumin 3.2 g/dL (3.4-5.0) Lipase 137 U/L (73-393) Thyroid Stimulating Hormone (TSH) 2.988 uIU/mL (0.358-3.74) Urine Collection Type Unknown Urine Color Yellow Urine Clarity Clear Urine pH 6.5 Urine Specific [place] 1.015 Urine Protein Negative mg/dL (NEG-TRACE) Urine Glucose (UA) Negative mg/dL (NEG) Urine Ketones (Stick) Negative mg/dL (NEG) Urine Blood Negative (NEG) Urine Nitrite Negative (NEG) Urine Bilirubin Negative (NEG) Urine Urobilinogen Dipstick 0.2 mg/dL (0.2 mg/dL) Urine Leukocyte Esterase Negative (NEG) Urine RBC Occ /HPF (0-2) Urine WBC Occ /HPF (0-4) Urine Squamous Epithelial Cells Few /LPF Urine Bacteria 0 /HPF (0-FEW) Urine Mucus Mod /LPF Urine Opiates Screen Pos (NEG) Urine Methadone Screen Neg (NEG) Urine Barbiturates Neg (NEG) Urine Phencyclidine Screen Neg (NEG) Urine Amphetamine/Methamphetamine Neg (NEG) Urine Benzodiazepines Screen Pos (NEG) Urine Cocaine Screen Pos (NEG) Urine Cannabinoids Screen Neg (NEG) Urine Ethyl Alcohol Pos (NEG) O2 Saturation 94 % (92-99) Arterial Blood pH 7.39 (7.35-7.45) Arterial Blood pCO2 at Patient Temp 50 mmHg (35-46) Arterial Blood pO2 at Patient Temp 72 mmHg (65-108) Arterial Blood HCO3 30 mmol/L (21-28) Arterial Blood Base Excess 4 mmol/L (-3-3) FiO2 21 Test 06/08/17 09:20 Troponin I Quantitative < 0.017 ng/mL (0.000-0.055) Images Images Extensive left lung opacities likely scarring changes grossly similar to prior exam. Assessment/Plan Assessment/Plan MAC CHEST PAIN SEC TO GERD AND COSTOCHONDRITIS GERD CM ABNORMAL CXR CHRONIC CHANGES PLAN INCREASE TESSALON TO 200 NO NEED FOR ADDITIONAL ANTIBX CARD CONSULTED WARNER SAUNDERS MD Jun 08, 2017 15:58
[2017-06-08 19:00] VITALS: BP 114/72
[2017-06-08] MEDS: TEMAZEPAM 15 MG CAPSULE PO SCH (20:52)
[2017-06-08] MEDS: ALBUTEROL SULFATE 2.5 MG/3 ML NEBU. NEB PRN (22:40)
[2017-06-08 22:53] VITALS: BP 107/71
[2017-06-08] MEDS: LORazepam 0.5 MG TABLET PO PRN (22:59)
--- NOTE | 2017-06-09 00:19 | ACF ---
Admission Forms Criteria COPD Clinical Indications for Admission to Inpatient Care (Place 'X' for any and all applicable criteria): Admission is indicated for ANY ONE of the following (1)(2)(3): [X]I. Acute exacerbation by high-risk comorbidity (e.g., pneumonia, dysrhythmia, heart failure, pleural effusion, pneumothorax) or severe underlying COPD (e.g., steroid dependent) [ ]II. Inpatient admission required rather than observation care (see Chronic Obstructive Pulmonary Disease: Observation Care) because of ANY ONE of the following: [ ]a) New or pre-existing signs or symptoms of COPD (eg, dyspnea or Tachypnea at rest or with minimal activity) that persist despite outpatient and observation care treatment [ ]b) New-onset hypoxemia (room air SaO2 less than 90%, PO2 less than 60 mm Hg (8.0 kPa)) that persists despite outpatient and observation care treatment [ ]c) Worsening of pre-existing hypoxemia (eg, new or increased requirement for supplemental oxygen to maintain oxygenation at baseline level) that persists despite outpatient and observation care treatment, with oxygen treatment needs performable only in acute inpatient setting [ ]d) Hypercarbia (PCO2 greater than 40 mm Hg (5.3 kPa))-induced respiratory acidosis (pH less than 7.35) that persists despite outpatient and observation care treatment [ ]e) Supplemental oxygen or respiratory treatments for over 24 hours that are performable only in acute inpatient setting [ ]f) Chest tube placement with active evacuation (e.g., suction, drainage) (5) [ ]g) Other condition, treatment or monitoring requiring inpatient admission [ ]III. Planned invasive surgical or diagnostic procedures requiring acute- care hospitalization [ ]IV. Acute respiratory failure (e.g., uncompensated hypercarbia, severe hypoxemia) [ ]V. Severe comorbid condition (e.g., severe steroid myopathy, acute vertebral fracture) that has acutely worsened pulmonary function [ ]. Confusion state, lethargy, obtundation, stupor or coma Extended stay beyond goal length of stay may be needed for (31)(32): [ ]a ) Respiratory Failure. [ ]b) Severe or persisting hypoxemia or hypercarbia [ ]c) Severe or persistent dyspnea [ ]d) Comorbidities (e.g. chronic heart failure, atrial fibrillation with rapid response, pneumonia) [ ]e) Malnutrition The original [facility] content created by [employer] has been revised. The portions of the content which have been revised are identified through the use of italic text or in bold, and [facility] has neither reviewed nor approved the modified material. All other unmodified content is copyright [facility]. Please see references footnoted in the original [facility] edition 2016 Admission Criteria Met?: Yes DEO PERALTA Jun 09, 2017 00:19
[2017-06-09 02:52] VITALS: BP 118/68
[2017-06-09] MEDS: ALBUTEROL SULFATE 2.5 MG/3 ML NEBU. NEB PRN ×2 (03:40→22:01)
[2017-06-09] MEDS: LORazepam 0.5 MG TABLET PO PRN ×2 (03:51→22:15)
[2017-06-09 06:04] LABS: HEMATOCRIT 37.7 % (39.0-53.0); HEMOGLOBIN 12.7 g/dL (13.0-17.5); RED BLOOD COUNT 3.94 x10^6/uL (4.30-5.70); RED CELL DISTRIBUTION WIDTH 13.7 % (11.5-14.5); WHITE BLOOD COUNT 4.4 x10^3/uL (4.0-11.0)
[2017-06-09] MEDS: BENZONATATE 100 MG CAPSULE. PO PRN ×2 (06:36→22:15)
[2017-06-09 06:39] LABS: ALBUMIN/GLOBULIN RATIO 0.7 (1.0-1.7); CALCIUM 8.3 mg/dL (8.5-10.1); CREATININE 0.7 mg/dL (0.7-1.3); GFR 113.9; POTASSIUM 3.9 mmol/L (3.5-5.1); TOTAL BILIRUBIN 0.2 mg/dL (0.2-1.0); TOTAL PROTEIN 7.1 g/dL (6.4-8.2)
[2017-06-09] MEDS: IPRATRPIUM/ALBUTEROL 0.5/2.5MG 3 ML NEBU. NEB SCH ×4 (06:39→19:41)
[2017-06-09 07:00] VITALS: BP 125/81
[2017-06-09] MEDS: ETHAMBUTOL HCL 400 MG TABLET PO SCH (08:12)
[2017-06-09] MEDS: PANTOPRAZOLE 40 MG TABLET.DR. PO SCH (08:12)
[2017-06-09] MEDS: riFAMpin 300 MG CAPSULE. PO SCH ×2 (08:13→22:15)
[2017-06-09] MEDS: HYDROcodone/APAP 5/325MG 1 TAB TABLET PO PRN ×4 (08:13→22:15)
[2017-06-09] MEDS: ESCITALOPRAM 5 MG TABLET. PO SCH (09:00)
[2017-06-09 11:00] VITALS: BP 101/65
--- NOTE | 2017-06-09 12:31 | PDOC ---
PULMONARY PROGRESS NOTES Subjective continues to have mid-sternal CP "elephant sitting on my chest" Vitals Vital Signs Date Time Temp Pulse Resp B/P (MAP) Pulse Ox O2 Delivery O2 Flow Rate FiO2 06/09/17 11:34 97 Nasal Cannula 2.0 06/09/17 11:00 98.9 85 20 101/65 (77) 98.9 General: Alert, No acute distress HEENT: Other Lungs: Clear Cardiovascular: S1, S2 Abdomen: Soft, Non-tender Extremities: No Edema, Other Labs Laboratory Tests Test 06/07/17 19:30 06/07/17 20:35 06/07/17 20:49 06/08/17 00:01 White Blood Count 5.8 x10^3/uL (4.0-11.0) Red Blood Count 4.01 x10^6/uL (4.30-5.70) Hemoglobin 12.8 g/dL (13.0-17.5) Hematocrit 38.0 % (39.0-53.0) Mean Corpuscular Volume 95 fL (79-100) Mean Corpuscular Hemoglobin 32 pg (25-35) Mean Corpuscular Hemoglobin Concent 34 g/dL (31-37) Red Cell Distribution Width 14.0 % (11.5-14.5) Platelet Count 245 x10^3/uL (140-400) Neutrophils (%) (Auto) 69 % (31-73) Lymphocytes (%) (Auto) 14 % (24-48) Monocytes (%) (Auto) 14 % (0-9) Eosinophils (%) (Auto) 3 % (0-3) Basophils (%) (Auto) 1 % (0-3) Neutrophils # (Auto) 4.0 x10^3uL (1.8-7.7) Lymphocytes # (Auto) 0.8 x10^3/uL (1.0-4.8) Monocytes # (Auto) 0.8 x10^3/uL (0.0-1.1) Eosinophils # (Auto) 0.2 x10^3/uL (0.0-0.7) Basophils # (Auto) 0.1 x10^3/uL (0.0-0.2) Prothrombin Time 12.9 SEC (11.7-14.0) Prothromb Time International Ratio 1.0 (0.8-1.1) D-Dimer (Mesha) 0.38 ug/mlFEU (0.00-0.50) Sodium Level 141 mmol/L (136-145) Potassium Level 3.7 mmol/L (3.5-5.1) Chloride Level 103 mmol/L (98-107) Carbon Dioxide Level 28 mmol/L (21-32) Anion Gap 10 (6-14) Blood Urea Nitrogen 10 mg/dL (8-26) Creatinine 0.6 mg/dL (0.7-1.3) Estimated GFR (Cockcroft-Gault) 136.1 Glucose Level 115 mg/dL (70-99) Calcium Level 9.2 mg/dL (8.5-10.1) Magnesium Level 1.9 mg/dL (1.8-2.4) Total Bilirubin 0.1 mg/dL (0.2-1.0) Direct Bilirubin < 0.1 mg/dL (0.0-0.2) Aspartate Amino Transf (AST/SGOT) 23 U/L (15-37) Alanine Aminotransferase (ALT/SGPT) 22 U/L (16-63) Alkaline Phosphatase 49 U/L (46-116) Creatine Kinase 90 U/L (39-308) Creatine Kinase MB (Mass) 3.7 ng/mL (0.0-3.6) Creatine Kinase MB Relative Index 4.1 % (0-4) Troponin I Quantitative < 0.017 ng/mL (0.000-0.055) CO-Tvw-Y-Type Natriuretic Peptide 352 pg/mL (0-124) Total Protein 7.5 g/dL (6.4-8.2) Albumin 3.2 g/dL (3.4-5.0) Lipase 137 U/L (73-393) Thyroid Stimulating Hormone (TSH) 2.988 uIU/mL (0.358-3.74) Urine Collection Type Unknown Urine Color Yellow Urine Clarity Clear Urine pH 6.5 Urine Specific [place] 1.015 Urine Protein Negative mg/dL (NEG-TRACE) Urine Glucose (UA) Negative mg/dL (NEG) Urine Ketones (Stick) Negative mg/dL (NEG) Urine Blood Negative (NEG) Urine Nitrite Negative (NEG) Urine Bilirubin Negative (NEG) Urine Urobilinogen Dipstick 0.2 mg/dL (0.2 mg/dL) Urine Leukocyte Esterase Negative (NEG) Urine RBC Occ /HPF (0-2) Urine WBC Occ /HPF (0-4) Urine Squamous Epithelial Cells Few /LPF Urine Bacteria 0 /HPF (0-FEW) Urine Mucus Mod /LPF Urine Opiates Screen Pos (NEG) Urine Methadone Screen Neg (NEG) Urine Barbiturates Neg (NEG) Urine Phencyclidine Screen Neg (NEG) Urine Amphetamine/Methamphetamine Neg (NEG) Urine Benzodiazepines Screen Pos (NEG) Urine Cocaine Screen Pos (NEG) Urine Cannabinoids Screen Neg (NEG) Urine Ethyl Alcohol Pos (NEG) O2 Saturation 94 % (92-99) Arterial Blood pH 7.39 (7.35-7.45) Arterial Blood pCO2 at Patient Temp 50 mmHg (35-46) Arterial Blood pO2 at Patient Temp 72 mmHg (65-108) Arterial Blood HCO3 30 mmol/L (21-28) Arterial Blood Base Excess 4 mmol/L (-3-3) FiO2 21 Nasal Screen MRSA (PCR) Negative (Negative) Test 06/08/17 03:20 06/08/17 09:20 06/09/17 05:30 White Blood Count 4.2 x10^3/uL (4.0-11.0) 4.4 x10^3/uL (4.0-11.0) Red Blood Count 3.87 x10^6/uL (4.30-5.70) 3.94 x10^6/uL (4.30-5.70) Hemoglobin 12.4 g/dL (13.0-17.5) 12.7 g/dL (13.0-17.5) Hematocrit 37.0 % (39.0-53.0) 37.7 % (39.0-53.0) Mean Corpuscular Volume 96 fL (79-100) 96 fL (79-100) Mean Corpuscular Hemoglobin 32 pg (25-35) 32 pg (25-35) Mean Corpuscular Hemoglobin Concent 33 g/dL (31-37) 34 g/dL (31-37) Red Cell Distribution Width 13.6 % (11.5-14.5) 13.7 % (11.5-14.5) Platelet Count 228 x10^3/uL (140-400) 194 x10^3/uL (140-400) Neutrophils (%) (Auto) 80 % (31-73) Lymphocytes (%) (Auto) 13 % (24-48) Monocytes (%) (Auto) 7 % (0-9) Eosinophils (%) (Auto) 0 % (0-3) Basophils (%) (Auto) 1 % (0-3) Neutrophils # (Auto) 3.3 x10^3uL (1.8-7.7) Lymphocytes # (Auto) 0.5 x10^3/uL (1.0-4.8) Monocytes # (Auto) 0.3 x10^3/uL (0.0-1.1) Eosinophils # (Auto) 0.0 x10^3/uL (0.0-0.7) Basophils # (Auto) 0.0 x10^3/uL (0.0-0.2) Sodium Level 141 mmol/L (136-145) 138 mmol/L (136-145) Potassium Level 4.3 mmol/L (3.5-5.1) 3.9 mmol/L (3.5-5.1) Chloride Level 104 mmol/L (98-107) 102 mmol/L (98-107) Carbon Dioxide Level 30 mmol/L (21-32) 33 mmol/L (21-32) Anion Gap 7 (6-14) 3 (6-14) Blood Urea Nitrogen 11 mg/dL (8-26) 12 mg/dL (8-26) Creatinine 0.7 mg/dL (0.7-1.3) 0.7 mg/dL (0.7-1.3) Estimated GFR (Cockcroft-Gault) 113.9 113.9 Glucose Level 113 mg/dL (70-99) 91 mg/dL (70-99) Calcium Level 8.6 mg/dL (8.5-10.1) 8.3 mg/dL (8.5-10.1) Troponin I Quantitative < 0.017 ng/mL (0.000-0.055) < 0.017 ng/mL (0.000-0.055) BUN/Creatinine Ratio 17 (6-20) Total Bilirubin 0.2 mg/dL (0.2-1.0) Aspartate Amino Transf (AST/SGOT) 28 U/L (15-37) Alanine Aminotransferase (ALT/SGPT) 23 U/L (16-63) Alkaline Phosphatase 43 U/L (46-116) Total Protein 7.1 g/dL (6.4-8.2) Albumin 3.0 g/dL (3.4-5.0) Albumin/Globulin Ratio 0.7 (1.0-1.7) Laboratory Tests Test 06/09/17 05:30 White Blood Count 4.4 x10^3/uL (4.0-11.0) Red Blood Count 3.94 x10^6/uL (4.30-5.70) Hemoglobin 12.7 g/dL (13.0-17.5) Hematocrit 37.7 % (39.0-53.0) Mean Corpuscular Volume 96 fL (79-100) Mean Corpuscular Hemoglobin 32 pg (25-35) Mean Corpuscular Hemoglobin Concent 34 g/dL (31-37) Red Cell Distribution Width 13.7 % (11.5-14.5) Platelet Count 194 x10^3/uL (140-400) Sodium Level 138 mmol/L (136-145) Potassium Level 3.9 mmol/L (3.5-5.1) Chloride Level 102 mmol/L (98-107) Carbon Dioxide Level 33 mmol/L (21-32) Anion Gap 3 (6-14) Blood Urea Nitrogen 12 mg/dL (8-26) Creatinine 0.7 mg/dL (0.7-1.3) Estimated GFR (Cockcroft-Gault) 113.9 BUN/Creatinine Ratio 17 (6-20) Glucose Level 91 mg/dL (70-99) Calcium Level 8.3 mg/dL (8.5-10.1) Total Bilirubin 0.2 mg/dL (0.2-1.0) Aspartate Amino Transf (AST/SGOT) 28 U/L (15-37) Alanine Aminotransferase (ALT/SGPT) 23 U/L (16-63) Alkaline Phosphatase 43 U/L (46-116) Total Protein 7.1 g/dL (6.4-8.2) Albumin 3.0 g/dL (3.4-5.0) Albumin/Globulin Ratio 0.7 (1.0-1.7) Medications Active Scripts Medications Dose Route/Sig Max Daily Dose Days Date Category Hydrocodone-Apap 5-325 (Hydrocodone Bit/Acetaminophen) 1 Each Tablet 1 Tab PO PRN Q4H PRN 30 05/26/17 Rx Tylenol (Acetaminophen) 325 Mg Tablet 2 Tab PO PRN Q4HRS 05/22/17 Reported Tessalon Perle (Benzonatate) 100 Mg Capsule 100 Mg PO TID PRN 03/26/17 Rx Albuterol Sulfate Conc Neb Soln (Albuterol Sulfate) 2.5 Mg/0.5 Ml Vial.neb 1 Vial NEB Q4HRS 02/25/17 Reported Proair Hfa Inhaler (Albuterol Sulfate) 8.5 Gm Hfa.aer.ad 1 Puff INH PRN Q4HRS PRN 02/25/17 Reported Duoneb 0.5-3(2.5) Mg/3 Ml (Albuterol/Ipratropium) 3 Ml Ampul.neb 3 Ml NEB QID 02/25/17 Reported Ethambutol Hcl 400 Mg Tablet 800 Mg DAILY 10/22/16 Reported Rifampin 300 Mg Capsule 300 Mg BID 10/22/16 Reported Escitalopram Oxalate 10 Mg Tablet 10 Mg DAILY 10/22/16 Reported Temazepam 15 Mg Capsule 1 Cap HS 10/22/16 Reported Impression . MAC/ TREATED WITH RIFAMPIN/ETHAM PERSISTENT CHEST PAIN , PER CARDIOLOGY APPEARS ATYPICAL. WILL DO CTA CHEST TO R/ O PE GERD CM ABNORMAL CXR CHRONIC CHANGES Plan . CTA CHEST FOLLOW CARDIOLOGY REC INCREASE TESSALON TO 200 NO NEED FOR ADDITIONAL ANTIBX MAC RX DONY ARCE MD Jun 09, 2017 12:31
[2017-06-09] MEDS ORDERED: IOHEXOL 300 MG/ML 75 ML VIAL IV ONE (12:45)
[2017-06-09] MEDS ORDERED: CONTRAST GIVEN MC PRN (12:45)
--- NOTE | 2017-06-09 13:53 | PN ---
PROGRESS NOTES Subjective Subjective Setting on the edge of the bed in tripod position Still c/o of retrosternal chest pain and shortness of breath He was seen by Dr Epstein who recommended CTAngioto R/O PE Objective Objective Vital Signs Date Time Temp Pulse Resp B/P (MAP) Pulse Ox O2 Delivery O2 Flow Rate FiO2 06/09/17 13:40 Nasal Cannula 3.0 06/09/17 11:34 97 06/09/17 11:00 98.9 85 20 101/65 (77) 98.9 Intake and Output 06/09/17 07:00 Intake Total 450 ml Balance 450 ml Intake Oral 450 ml # Voids 6 Physical Exam Physical Exam setting in a tripod position HEET NC/AT HEART S1&S2 Normal Chest Reduced chest expansion and air entry Scatted rhonchi No crepitation COMMENT Chset and shortness of braeth We will await the result of chest angio will add albuterol q2h prn Diagnosis DIAGNOSIS chest pain felt to be due to severe acid reflux It did not respomd to PPI and antacids PROBLEM LIST Problems Medical Problems: (1) COPD (chronic obstructive pulmonary disease) Status: Acute Assessment Assessment Problems Medical Problems: (1) COPD (chronic obstructive pulmonary disease) Status: Acute Chest pain ACID REFLUX/CAD/PE Plan Plan of Care CT Scan of the chest with PE protocol If negative will discuss with cardiology team to consider cardiac cathterization Comment Labs Laboratory Tests Test 06/07/17 19:30 06/07/17 20:35 06/07/17 20:49 06/08/17 00:01 White Blood Count 5.8 x10^3/uL (4.0-11.0) Red Blood Count 4.01 x10^6/uL (4.30-5.70) Hemoglobin 12.8 g/dL (13.0-17.5) Hematocrit 38.0 % (39.0-53.0) Mean Corpuscular Volume 95 fL (79-100) Mean Corpuscular Hemoglobin 32 pg (25-35) Mean Corpuscular Hemoglobin Concent 34 g/dL (31-37) Red Cell Distribution Width 14.0 % (11.5-14.5) Platelet Count 245 x10^3/uL (140-400) Neutrophils (%) (Auto) 69 % (31-73) Lymphocytes (%) (Auto) 14 % (24-48) Monocytes (%) (Auto) 14 % (0-9) Eosinophils (%) (Auto) 3 % (0-3) Basophils (%) (Auto) 1 % (0-3) Neutrophils # (Auto) 4.0 x10^3uL (1.8-7.7) Lymphocytes # (Auto) 0.8 x10^3/uL (1.0-4.8) Monocytes # (Auto) 0.8 x10^3/uL (0.0-1.1) Eosinophils # (Auto) 0.2 x10^3/uL (0.0-0.7) Basophils # (Auto) 0.1 x10^3/uL (0.0-0.2) Prothrombin Time 12.9 SEC (11.7-14.0) Prothromb Time International Ratio 1.0 (0.8-1.1) D-Dimer (Mesha) 0.38 ug/mlFEU (0.00-0.50) Sodium Level 141 mmol/L (136-145) Potassium Level 3.7 mmol/L (3.5-5.1) Chloride Level 103 mmol/L (98-107) Carbon Dioxide Level 28 mmol/L (21-32) Anion Gap 10 (6-14) Blood Urea Nitrogen 10 mg/dL (8-26) Creatinine 0.6 mg/dL (0.7-1.3) Estimated GFR (Cockcroft-Gault) 136.1 Glucose Level 115 mg/dL (70-99) Calcium Level 9.2 mg/dL (8.5-10.1) Magnesium Level 1.9 mg/dL (1.8-2.4) Total Bilirubin 0.1 mg/dL (0.2-1.0) Direct Bilirubin < 0.1 mg/dL (0.0-0.2) Aspartate Amino Transf (AST/SGOT) 23 U/L (15-37) Alanine Aminotransferase (ALT/SGPT) 22 U/L (16-63) Alkaline Phosphatase 49 U/L (46-116) Creatine Kinase 90 U/L (39-308) Creatine Kinase MB (Mass) 3.7 ng/mL (0.0-3.6) Creatine Kinase MB Relative Index 4.1 % (0-4) Troponin I Quantitative < 0.017 ng/mL (0.000-0.055) CI-Sud-Q-Type Natriuretic Peptide 352 pg/mL (0-124) Total Protein 7.5 g/dL (6.4-8.2) Albumin 3.2 g/dL (3.4-5.0) Lipase 137 U/L (73-393) Thyroid Stimulating Hormone (TSH) 2.988 uIU/mL (0.358-3.74) Urine Collection Type Unknown Urine Color Yellow Urine Clarity Clear Urine pH 6.5 Urine Specific [place] 1.015 Urine Protein Negative mg/dL (NEG-TRACE) Urine Glucose (UA) Negative mg/dL (NEG) Urine Ketones (Stick) Negative mg/dL (NEG) Urine Blood Negative (NEG) Urine Nitrite Negative (NEG) Urine Bilirubin Negative (NEG) Urine Urobilinogen Dipstick 0.2 mg/dL (0.2 mg/dL) Urine Leukocyte Esterase Negative (NEG) Urine RBC Occ /HPF (0-2) Urine WBC Occ /HPF (0-4) Urine Squamous Epithelial Cells Few /LPF Urine Bacteria 0 /HPF (0-FEW) Urine Mucus Mod /LPF Urine Opiates Screen Pos (NEG) Urine Methadone Screen Neg (NEG) Urine Barbiturates Neg (NEG) Urine Phencyclidine Screen Neg (NEG) Urine Amphetamine/Methamphetamine Neg (NEG) Urine Benzodiazepines Screen Pos (NEG) Urine Cocaine Screen Pos (NEG) Urine Cannabinoids Screen Neg (NEG) Urine Ethyl Alcohol Pos (NEG) O2 Saturation 94 % (92-99) Arterial Blood pH 7.39 (7.35-7.45) Arterial Blood pCO2 at Patient Temp 50 mmHg (35-46) Arterial Blood pO2 at Patient Temp 72 mmHg (65-108) Arterial Blood HCO3 30 mmol/L (21-28) Arterial Blood Base Excess 4 mmol/L (-3-3) FiO2 21 Nasal Screen MRSA (PCR) Negative (Negative) Test 06/08/17 03:20 06/08/17 09:20 06/09/17 05:30 White Blood Count 4.2 x10^3/uL (4.0-11.0) 4.4 x10^3/uL (4.0-11.0) Red Blood Count 3.87 x10^6/uL (4.30-5.70) 3.94 x10^6/uL (4.30-5.70) Hemoglobin 12.4 g/dL (13.0-17.5) 12.7 g/dL (13.0-17.5) Hematocrit 37.0 % (39.0-53.0) 37.7 % (39.0-53.0) Mean Corpuscular Volume 96 fL (79-100) 96 fL (79-100) Mean Corpuscular Hemoglobin 32 pg (25-35) 32 pg (25-35) Mean Corpuscular Hemoglobin Concent 33 g/dL (31-37) 34 g/dL (31-37) Red Cell Distribution Width 13.6 % (11.5-14.5) 13.7 % (11.5-14.5) Platelet Count 228 x10^3/uL (140-400) 194 x10^3/uL (140-400) Neutrophils (%) (Auto) 80 % (31-73) Lymphocytes (%) (Auto) 13 % (24-48) Monocytes (%) (Auto) 7 % (0-9) Eosinophils (%) (Auto) 0 % (0-3) Basophils (%) (Auto) 1 % (0-3) Neutrophils # (Auto) 3.3 x10^3uL (1.8-7.7) Lymphocytes # (Auto) 0.5 x10^3/uL (1.0-4.8) Monocytes # (Auto) 0.3 x10^3/uL (0.0-1.1) Eosinophils # (Auto) 0.0 x10^3/uL (0.0-0.7) Basophils # (Auto) 0.0 x10^3/uL (0.0-0.2) Sodium Level 141 mmol/L (136-145) 138 mmol/L (136-145) Potassium Level 4.3 mmol/L (3.5-5.1) 3.9 mmol/L (3.5-5.1) Chloride Level 104 mmol/L (98-107) 102 mmol/L (98-107) Carbon Dioxide Level 30 mmol/L (21-32) 33 mmol/L (21-32) Anion Gap 7 (6-14) 3 (6-14) Blood Urea Nitrogen 11 mg/dL (8-26) 12 mg/dL (8-26) Creatinine 0.7 mg/dL (0.7-1.3) 0.7 mg/dL (0.7-1.3) Estimated GFR (Cockcroft-Gault) 113.9 113.9 Glucose Level 113 mg/dL (70-99) 91 mg/dL (70-99) Calcium Level 8.6 mg/dL (8.5-10.1) 8.3 mg/dL (8.5-10.1) Troponin I Quantitative < 0.017 ng/mL (0.000-0.055) < 0.017 ng/mL (0.000-0.055) BUN/Creatinine Ratio 17 (6-20) Total Bilirubin 0.2 mg/dL (0.2-1.0) Aspartate Amino Transf (AST/SGOT) 28 U/L (15-37) Alanine Aminotransferase (ALT/SGPT) 23 U/L (16-63) Alkaline Phosphatase 43 U/L (46-116) Total Protein 7.1 g/dL (6.4-8.2) Albumin 3.0 g/dL (3.4-5.0) Albumin/Globulin Ratio 0.7 (1.0-1.7) Laboratory Tests Test 06/09/17 05:30 White Blood Count 4.4 x10^3/uL (4.0-11.0) Red Blood Count 3.94 x10^6/uL (4.30-5.70) Hemoglobin 12.7 g/dL (13.0-17.5) Hematocrit 37.7 % (39.0-53.0) Mean Corpuscular Volume 96 fL (79-100) Mean Corpuscular Hemoglobin 32 pg (25-35) Mean Corpuscular Hemoglobin Concent 34 g/dL (31-37) Red Cell Distribution Width 13.7 % (11.5-14.5) Platelet Count 194 x10^3/uL (140-400) Sodium Level 138 mmol/L (136-145) Potassium Level 3.9 mmol/L (3.5-5.1) Chloride Level 102 mmol/L (98-107) Carbon Dioxide Level 33 mmol/L (21-32) Anion Gap 3 (6-14) Blood Urea Nitrogen 12 mg/dL (8-26) Creatinine 0.7 mg/dL (0.7-1.3) Estimated GFR (Cockcroft-Gault) 113.9 BUN/Creatinine Ratio 17 (6-20) Glucose Level 91 mg/dL (70-99) Calcium Level 8.3 mg/dL (8.5-10.1) Total Bilirubin 0.2 mg/dL (0.2-1.0) Aspartate Amino Transf (AST/SGOT) 28 U/L (15-37) Alanine Aminotransferase (ALT/SGPT) 23 U/L (16-63) Alkaline Phosphatase 43 U/L (46-116) Total Protein 7.1 g/dL (6.4-8.2) Albumin 3.0 g/dL (3.4-5.0) Albumin/Globulin Ratio 0.7 (1.0-1.7) Medications Current Medications Albuterol/ Ipratropium (Duoneb) 3 ml 1X ONCE NEB Last administered on 19:40; Start 06/07/17 at 20:00; Stop 06/07/17 at 20:01; Status DC Methylprednisolone Sodium Succinate (SOLU-Medrol 125MG VIAL) 125 mg 1X ONCE IV Last administered on 06/07/17 19:44; Start 06/07/17 at 20:00; Stop 06/07/17 at 20:01; Status DC Albuterol/ Ipratropium (Duoneb) 3 ml STK-MED ONCE .ROUTE ; Start 06/07/17 at 19: 34; Stop 06/07/17 at 19:35; Status DC Morphine Sulfate 2 mg PRN Q15MIN PRN IV/SQ PAIN GREATER THAN 3/10 Last administered on 06/07/17 20:22; Start 06/07/17 at 20:15; Stop 06/08/17 at 00:00; Status DC Azithromycin 250 ml @ 250 mls/hr 1X ONCE IV Last administered on 06/07/17 20: 42; Start 06/07/17 at 20:30; Stop 06/07/17 at 21:29; Status DC Ondansetron HCl (Zofran) 4 mg PRN Q8HRS PRN IV NAUSEA/VOMITING; Start 06/07/17 at 21:15; Stop 06/08/17 at 21:14; Status DC Morphine Sulfate 2 mg PRN Q4HRS PRN IV SEVERE PAIN; Start 06/07/17 at 21:15 Acetaminophen (Tylenol) 650 mg PRN Q4HRS PRN PO MILD PAIN/TEMP; Start 06/08/17 at 00:00 Benzonatate (Tessalon Perle) 100 mg PRN TID PRN PO COUGH Last administered on 09:14; Start 06/08/17 at 00:00; Stop 06/08/17 at 17:02; Status DC Ethambutol HCl (Myambutol) 800 mg DAILY PO Last administered on 06/09/17 08:12 ; Start 06/08/17 at 09:00 Acetaminophen/ Hydrocodone Bitart (Lortab 5/325) 1 tab PRN Q4HRS PRN PO MODERATE PAIN Last administered on 06/09/17 13:40; Start 06/08/17 at 00:00 Albuterol/ Ipratropium (Duoneb) 3 ml RTQID NEB Last administered on 06/09/17 11:31; Start 06/08/17 at 08:00 Rifampin (Rifadin) 300 mg BID PO Last administered on 06/09/17 08:13; Start at 09:00 Temazepam (Restoril) 15 mg HS PO Last administered on 06/08/17 20:52; Start 06/08/17 at 21:00 Non-Formulary Medication 1 vial Q4HRS NEB ; Start 06/08/17 at 00:00; Status UNV Non-Formulary Medication 1 puff PRN Q4HRS PRN INH SHORTNESS OF BREATH; Start at 00:00; Status UNV Escitalopram Oxalate (Lexapro) 10 mg DAILY PO Last administered on 06/08/17 09: 14; Start 06/08/17 at 09:00 Albuterol/ Ipratropium (Duoneb) 3 ml 1X ONCE NEB Last administered on 00:15; Start 06/08/17 at 00:30; Stop 06/08/17 at 00:31; Status DC Albuterol Sulfate (Ventolin Neb Soln) 2.5 mg PRN Q4HRS PRN NEB SHORTNESS OF BREATH Last administered on 06/09/17 03:40; Start 06/08/17 at 00:15 Temazepam (Restoril) 15 mg 1X ONCE PO Last administered on 06/08/17 02:04; Start 06/08/17 at 02:00; Stop 06/08/17 at 02:01; Status DC Pantoprazole Sodium (Protonix) 40 mg DAILYAC PO Last administered on 06/09/17 08:12; Start 06/08/17 at 13:45 Al Hydroxide/Mg Hydroxide (Mylanta Plus Xs) 30 ml PRN Q2HR PRN PO HEARTBURN / GAS Last administered on 06/08/17 15:06; Start 06/08/17 at 13:45 Pantoprazole Sodium (Protonix) 40 mg 1X ONCE PO ; Start 06/08/17 at 13:45; Stop 06/08/17 at 13:46; Status UNV Benzonatate (Tessalon Perle) 200 mg PRN TID PRN PO COUGH Last administered on 06:36; Start 06/08/17 at 17:15 Lorazepam (Ativan) 0.5 mg PRN Q4HRS PRN PO ANXIETY / AGITATION Last administered on 06/09/17 03:51; Start 06/08/17 at 22:45 Iohexol (Omnipaque 300 Mg/ml) 75 ml 1X ONCE IV ; Start 06/09/17 at 12:45; Stop 06/09/17 at 12:46; Status DC Info (Do NOT chart on this entry -- for MONITORING) 1 each PRN DAILY PRN MC SEE COMMENTS; Start 06/09/17 at 12:45; Stop 06/11/17 at 12:44 Active Scripts Active Hydrocodone-Apap 5-325 (Hydrocodone Bit/Acetaminophen) 1 Each Tablet 1 Tab PO PRN Q4H PRN 30 Days Tessalon Perle (Benzonatate) 100 Mg Capsule 100 Mg PO TID PRN Reported Tylenol (Acetaminophen) 325 Mg Tablet 2 Tab PO PRN Q4HRS Albuterol Sulfate Conc Neb Soln (Albuterol Sulfate) 2.5 Mg/0.5 Ml Vial.neb 1 Vial NEB Q4HRS Proair Hfa Inhaler (Albuterol Sulfate) 8.5 Gm Hfa.aer.ad 1 Puff INH PRN Q4HRS PRN Duoneb 0.5-3(2.5) Mg/3 Ml (Albuterol/Ipratropium) 3 Ml Ampul.neb 3 Ml NEB QID Ethambutol Hcl 400 Mg Tablet 800 Mg DAILY Rifampin 300 Mg Capsule 300 Mg BID Escitalopram Oxalate 10 Mg Tablet 10 Mg DAILY Temazepam 15 Mg Capsule 1 Cap HS Vitals/I & O Vital Sign - Last 24 Hours 06/08/17 06/08/17 06/08/17 06/08/17 14:44 14:48 15:09 19:00 Temp 97.8 98.7 97.8 98.7 Pulse 87 93 Resp 12 20 B/P (MAP) 112/56 (74) 114/72 (86) Pulse Ox 92 95 95 O2 Delivery Room Air Room Air Room Air Room Air 06/08/17 06/08/17 06/08/17 06/08/17 19:12 20:00 20:10 22:41 Pulse Ox 95 92 96 O2 Delivery Nasal Cannula Nasal Cannula Room Air Nasal Cannula O2 Flow Rate 2.0 2.0 2.0 06/08/17 06/09/17 06/09/17 06/09/17 22:53 02:52 03:40 06:40 Temp 98.6 98.6 Pulse 66 74 Resp 19 19 B/P (MAP) 107/71 (83) 118/68 (85) Pulse Ox 92 91 O2 Delivery Room Air Room Air Nasal Cannula Nasal Cannula O2 Flow Rate 2.0 2.0 06/09/17 06/09/17 06/09/17 06/09/17 07:00 07:52 08:13 10:17 Temp 100.6 100.6 Pulse 100 Resp 22 B/P (MAP) 125/81 (96) Pulse Ox 99 O2 Delivery Room Air Nasal Cannula Nasal Cannula Nasal Cannula O2 Flow Rate 3.0 3.0 3.0 06/09/17 06/09/17 06/09/17 11:00 11:34 13:40 Temp 98.9 98.9 Pulse 85 Resp 20 B/P (MAP) 101/65 (77) Pulse Ox 99 97 O2 Delivery Room Air Nasal Cannula Nasal Cannula O2 Flow Rate 2.0 3.0 Intake and Output 06/08/17 06/08/17 06/09/17 15:00 23:00 07:00 Intake Total 450 ml Balance 450 ml MANI MCHUGH MD Jun 09, 2017 13:53
[2017-06-09 15:00] VITALS: BP 100/63
--- NOTE | 2017-06-09 16:58 | RAD ---
CTA chest with contrast 06/09/2017 at 1422 hours Indication: Chest pain, cough. History of mycobacterium avium intracellulare. Comparison: CT chest 02/03/2017, 11/18/2016 Technique: Multiple axial CT images of the chest were acquired after the administration of intravenous contrast. 75 mL Omnipaque 300 was administered. Evaluation was performed to specifically evaluate the pulmonary arterial system using a PE protocol. Findings: The thyroid gland is normal in appearance. Borderline left superior peritracheal lymph nodes are present measuring 7-9 mm (series 3, images 22 and 24. Left hilar lymph node measures 10 mm by short axis (series 3, image 65). This is unchanged from the prior examination from 02/03/2017. Heart is normal in size. No pericardial or pleural effusions. Thoracic aorta is normal in course and caliber. There is adequate opacification of the pulmonary arterial system. No filling defects are identified to suggest acute pulmonary embolism. Multiple solid noncalcified pulmonary nodules are identified throughout the left lung which appear stable compared to the prior examination no new or enlarging lesions are identified. A previously 7 mm pulmonary nodule in the right lower lobe currently measures 5 mm (series 3, image 120). Otherwise, nodules are stable. No new nodules are identified. Severe centrilobular emphysema is present. Visualized upper abdomen is normal. Mild/moderate multilevel degenerative changes of the thoracic spine with anterior marginal osteophytosis present. Impression: 1. No evidence for acute pulmonary embolism. 2. Stable pleural-parenchymal changes in the left lung apex compatible with a cavitary lesion and associated scarring. 3. Multifocal solid noncalcified pulmonary nodules in the lungs are stable without significant interval change since 02/03/2017. 4. Severe centrilobular emphysema. PQRS Compliance Statement: One or more of the following individualized dose reduction techniques were utilized for this examination: 1. Automated exposure control 2. Adjustment of the mA and/or kV according to patient size 3. Use of iterative reconstruction technique
[2017-06-09 19:20] VITALS: BP 100/63
[2017-06-09] MEDS: TEMAZEPAM 15 MG CAPSULE PO SCH (22:15)
[2017-06-09 23:20] VITALS: BP 106/69
[2017-06-10] MEDS: ALBUTEROL SULFATE 2.5 MG/3 ML NEBU. NEB PRN ×2 (02:10→05:37)
[2017-06-10 03:20] VITALS: BP 106/67
[2017-06-10] MEDS: HYDROcodone/APAP 5/325MG 1 TAB TABLET PO PRN ×4 (05:26→22:52)
[2017-06-10] MEDS: LORazepam 0.5 MG TABLET PO PRN ×2 (05:26→22:52)
[2017-06-10 07:00] VITALS: BP 93/66
[2017-06-10] MEDS: IPRATRPIUM/ALBUTEROL 0.5/2.5MG 3 ML NEBU. NEB SCH ×4 (07:45→19:22)
[2017-06-10] MEDS: PANTOPRAZOLE 40 MG TABLET.DR. PO SCH (08:22)
[2017-06-10] MEDS: ETHAMBUTOL HCL 400 MG TABLET PO SCH (08:22)
[2017-06-10] MEDS: riFAMpin 300 MG CAPSULE. PO SCH ×2 (08:22→22:52)
[2017-06-10 11:00] VITALS: BP 103/65
--- NOTE | 2017-06-10 11:33 | PDOC ---
PULMONARY PROGRESS NOTES Subjective CP better MITCHELL Vitals Vital Signs Date Time Temp Pulse Resp B/P (MAP) Pulse Ox O2 Delivery O2 Flow Rate FiO2 06/10/17 08:09 Nasal Cannula 3.0 06/10/17 07:46 96 06/10/17 07:00 99.6 97 20 93/66 (75) 99.6 General: Alert, No acute distress HEENT: Other Lungs: Other (decrease bs) Cardiovascular: S1, S2 Abdomen: Soft, Non-tender Neuro Exam: Alert Extremities: No Edema, Other Skin: Warm Labs Laboratory Tests Test 06/09/17 05:30 White Blood Count 4.4 x10^3/uL (4.0-11.0) Red Blood Count 3.94 x10^6/uL (4.30-5.70) Hemoglobin 12.7 g/dL (13.0-17.5) Hematocrit 37.7 % (39.0-53.0) Mean Corpuscular Volume 96 fL (79-100) Mean Corpuscular Hemoglobin 32 pg (25-35) Mean Corpuscular Hemoglobin Concent 34 g/dL (31-37) Red Cell Distribution Width 13.7 % (11.5-14.5) Platelet Count 194 x10^3/uL (140-400) Sodium Level 138 mmol/L (136-145) Potassium Level 3.9 mmol/L (3.5-5.1) Chloride Level 102 mmol/L (98-107) Carbon Dioxide Level 33 mmol/L (21-32) Anion Gap 3 (6-14) Blood Urea Nitrogen 12 mg/dL (8-26) Creatinine 0.7 mg/dL (0.7-1.3) Estimated GFR (Cockcroft-Gault) 113.9 BUN/Creatinine Ratio 17 (6-20) Glucose Level 91 mg/dL (70-99) Calcium Level 8.3 mg/dL (8.5-10.1) Total Bilirubin 0.2 mg/dL (0.2-1.0) Aspartate Amino Transf (AST/SGOT) 28 U/L (15-37) Alanine Aminotransferase (ALT/SGPT) 23 U/L (16-63) Alkaline Phosphatase 43 U/L (46-116) Total Protein 7.1 g/dL (6.4-8.2) Albumin 3.0 g/dL (3.4-5.0) Albumin/Globulin Ratio 0.7 (1.0-1.7) Medications Active Scripts Medications Dose Route/Sig Max Daily Dose Days Date Category Hydrocodone-Apap 5-325 (Hydrocodone Bit/Acetaminophen) 1 Each Tablet 1 Tab PO PRN Q4H PRN 30 05/26/17 Rx Tylenol (Acetaminophen) 325 Mg Tablet 2 Tab PO PRN Q4HRS 05/22/17 Reported Tessalon Perle (Benzonatate) 100 Mg Capsule 100 Mg PO TID PRN 03/26/17 Rx Albuterol Sulfate Conc Neb Soln (Albuterol Sulfate) 2.5 Mg/0.5 Ml Vial.neb 1 Vial NEB Q4HRS 02/25/17 Reported Proair Hfa Inhaler (Albuterol Sulfate) 8.5 Gm Hfa.aer.ad 1 Puff INH PRN Q4HRS PRN 02/25/17 Reported Duoneb 0.5-3(2.5) Mg/3 Ml (Albuterol/Ipratropium) 3 Ml Ampul.neb 3 Ml NEB QID 02/25/17 Reported Ethambutol Hcl 400 Mg Tablet 800 Mg DAILY 10/22/16 Reported Rifampin 300 Mg Capsule 300 Mg BID 10/22/16 Reported Escitalopram Oxalate 10 Mg Tablet 10 Mg DAILY 10/22/16 Reported Temazepam 15 Mg Capsule 1 Cap HS 10/22/16 Reported Comments CTA CHEST 1. No evidence for acute pulmonary embolism. 2. Stable pleural-parenchymal changes in the left lung apex compatible with a cavitary lesion and associated scarring. 3. Multifocal solid noncalcified pulmonary nodules in the lungs are stable without significant interval change since 02/03/2017. 4. Severe centrilobular emphysema. Impression . MAC/ TREATED WITH RIFAMPIN/ETHAM CHEST PAIN , PER CARDIOLOGY APPEARS ATYPICAL.CTA CHEST WITH NO PE GERD CM ABNORMAL CXR CHRONIC CHANGES/ CT SCAN WITH UNCHANGED FINDINGS Plan . OXYGEN FOLLOW CARDIOLOGY REC NO NEED FOR ADDITIONAL ANTIBX MAC RX OK WITH RE[facility] DONY ARCE MD Jun 10, 2017 11:33
[2017-06-10] MEDS: ESCITALOPRAM 10 MG TABLET. PO SCH (11:56)
--- NOTE | 2017-06-10 14:43 | PN ---
PROGRESS NOTES Subjective Subjective sleeping propped up in bed Continues to c./o chest pain So far alllabs and imaging are negative Objective Objective Vital Signs Date Time Temp Pulse Resp B/P (MAP) Pulse Ox O2 Delivery O2 Flow Rate FiO2 06/10/17 13:00 Nasal Cannula 3.0 06/10/17 11:00 99.3 95 20 103/65 (78) 93 99.3 Intake and Output 06/10/17 07:00 Intake Total 700 ml Balance 700 ml Intake Oral 700 ml # Voids 3 # Bowel Movements 1 Physical Exam Physical Exam Resting prpped up in bed in NAD Vitals are stable Chest reduced chest expansion and reduced air entry Very few scattered rhonchi Abdomen scaphoid soft [employer] grossly intact Diagnosis PROBLEM LIST Problems Medical Problems: (1) COPD (chronic obstructive pulmonary disease) Status: Acute Assessment Assessment Problems Medical Problems: (1) COPD (chronic obstructive pulmonary disease) Status: Acute Plan Plan of Care continue with current paln of management We will discharge back to [facility] tomorrow Comment Labs Laboratory Tests Test 06/09/17 05:30 White Blood Count 4.4 x10^3/uL (4.0-11.0) Red Blood Count 3.94 x10^6/uL (4.30-5.70) Hemoglobin 12.7 g/dL (13.0-17.5) Hematocrit 37.7 % (39.0-53.0) Mean Corpuscular Volume 96 fL (79-100) Mean Corpuscular Hemoglobin 32 pg (25-35) Mean Corpuscular Hemoglobin Concent 34 g/dL (31-37) Red Cell Distribution Width 13.7 % (11.5-14.5) Platelet Count 194 x10^3/uL (140-400) Sodium Level 138 mmol/L (136-145) Potassium Level 3.9 mmol/L (3.5-5.1) Chloride Level 102 mmol/L (98-107) Carbon Dioxide Level 33 mmol/L (21-32) Anion Gap 3 (6-14) Blood Urea Nitrogen 12 mg/dL (8-26) Creatinine 0.7 mg/dL (0.7-1.3) Estimated GFR (Cockcroft-Gault) 113.9 BUN/Creatinine Ratio 17 (6-20) Glucose Level 91 mg/dL (70-99) Calcium Level 8.3 mg/dL (8.5-10.1) Total Bilirubin 0.2 mg/dL (0.2-1.0) Aspartate Amino Transf (AST/SGOT) 28 U/L (15-37) Alanine Aminotransferase (ALT/SGPT) 23 U/L (16-63) Alkaline Phosphatase 43 U/L (46-116) Total Protein 7.1 g/dL (6.4-8.2) Albumin 3.0 g/dL (3.4-5.0) Albumin/Globulin Ratio 0.7 (1.0-1.7) Medications Current Medications Albuterol/ Ipratropium (Duoneb) 3 ml 1X ONCE NEB Last administered on 19:40; Start 06/07/17 at 20:00; Stop 06/07/17 at 20:01; Status DC Methylprednisolone Sodium Succinate (SOLU-Medrol 125MG VIAL) 125 mg 1X ONCE IV Last administered on 06/07/17 19:44; Start 06/07/17 at 20:00; Stop 06/07/17 at 20:01; Status DC Albuterol/ Ipratropium (Duoneb) 3 ml STK-MED ONCE .ROUTE ; Start 06/07/17 at 19: 34; Stop 06/07/17 at 19:35; Status DC Morphine Sulfate 2 mg PRN Q15MIN PRN IV/SQ PAIN GREATER THAN 3/10 Last administered on 06/07/17 20:22; Start 06/07/17 at 20:15; Stop 06/08/17 at 00:00; Status DC Azithromycin 250 ml @ 250 mls/hr 1X ONCE IV Last administered on 06/07/17 20: 42; Start 06/07/17 at 20:30; Stop 06/07/17 at 21:29; Status DC Ondansetron HCl (Zofran) 4 mg PRN Q8HRS PRN IV NAUSEA/VOMITING; Start 06/07/17 at 21:15; Stop 06/08/17 at 21:14; Status DC Morphine Sulfate 2 mg PRN Q4HRS PRN IV SEVERE PAIN; Start 06/07/17 at 21:15 Acetaminophen (Tylenol) 650 mg PRN Q4HRS PRN PO MILD PAIN/TEMP; Start 06/08/17 at 00:00 Benzonatate (Tessalon Perle) 100 mg PRN TID PRN PO COUGH Last administered on 09:14; Start 06/08/17 at 00:00; Stop 06/08/17 at 17:02; Status DC Ethambutol HCl (Myambutol) 800 mg DAILY PO Last administered on 06/10/17 08:22 ; Start 06/08/17 at 09:00 Acetaminophen/ Hydrocodone Bitart (Lortab 5/325) 1 tab PRN Q4HRS PRN PO MODERATE PAIN Last administered on 06/10/17 11:57; Start 06/08/17 at 00:00 Albuterol/ Ipratropium (Duoneb) 3 ml RTQID NEB Last administered on 06/10/17 11:33; Start 06/08/17 at 08:00 Rifampin (Rifadin) 300 mg BID PO Last administered on 06/10/17 08:22; Start at 09:00 Temazepam (Restoril) 15 mg HS PO Last administered on 06/09/17 22:15; Start at 21:00 Non-Formulary Medication 1 vial Q4HRS NEB ; Start 06/08/17 at 00:00; Status UNV Non-Formulary Medication 1 puff PRN Q4HRS PRN INH SHORTNESS OF BREATH; Start at 00:00; Status UNV Escitalopram Oxalate (Lexapro) 10 mg DAILY PO Last administered on 06/08/17 09: 14; Start 06/08/17 at 09:00; Stop 06/10/17 at 08:55; Status DC Albuterol/ Ipratropium (Duoneb) 3 ml 1X ONCE NEB Last administered on 00:15; Start 06/08/17 at 00:30; Stop 06/08/17 at 00:31; Status DC Albuterol Sulfate (Ventolin Neb Soln) 2.5 mg PRN Q4HRS PRN NEB SHORTNESS OF BREATH Last administered on 06/10/17 02:10; Start 06/08/17 at 00:15 Temazepam (Restoril) 15 mg 1X ONCE PO Last administered on 06/08/17 02:04; Start 06/08/17 at 02:00; Stop 06/08/17 at 02:01; Status DC Pantoprazole Sodium (Protonix) 40 mg DAILYAC PO Last administered on 06/10/17 08:22; Start 06/08/17 at 13:45 Al Hydroxide/Mg Hydroxide (Mylanta Plus Xs) 30 ml PRN Q2HR PRN PO HEARTBURN / GAS Last administered on 06/08/17 15:06; Start 06/08/17 at 13:45 Pantoprazole Sodium (Protonix) 40 mg 1X ONCE PO ; Start 06/08/17 at 13:45; Stop 06/08/17 at 13:46; Status UNV Benzonatate (Tessalon Perle) 200 mg PRN TID PRN PO COUGH Last administered on 22:15; Start 06/08/17 at 17:15 Lorazepam (Ativan) 0.5 mg PRN Q4HRS PRN PO ANXIETY / AGITATION Last administered on 06/10/17 05:26; Start 06/08/17 at 22:45 Iohexol (Omnipaque 300 Mg/ml) 75 ml 1X ONCE IV Last administered on 06/09/17 14:21; Start 06/09/17 at 12:45; Stop 06/09/17 at 12:46; Status DC Info (Do NOT chart on this entry -- for MONITORING) 1 each PRN DAILY PRN MC SEE COMMENTS; Start 06/09/17 at 12:45; Stop 06/11/17 at 12:44 Albuterol Sulfate (Ventolin Neb Soln) 2.5 mg PRN Q2HR PRN NEB SHORTNESS OF BREATH Last administered on 06/10/17 05:37; Start 06/09/17 at 14:30 Escitalopram Oxalate (Lexapro) 10 mg DAILY PO Last administered on 06/10/17 11 :56; Start 06/10/17 at 09:00 Active Scripts Active Hydrocodone-Apap 5-325 (Hydrocodone Bit/Acetaminophen) 1 Each Tablet 1 Tab PO PRN Q4H PRN 30 Days Tessalon Perle (Benzonatate) 100 Mg Capsule 100 Mg PO TID PRN Reported Tylenol (Acetaminophen) 325 Mg Tablet 2 Tab PO PRN Q4HRS Albuterol Sulfate Conc Neb Soln (Albuterol Sulfate) 2.5 Mg/0.5 Ml Vial.neb 1 Vial NEB Q4HRS Proair Hfa Inhaler (Albuterol Sulfate) 8.5 Gm Hfa.aer.ad 1 Puff INH PRN Q4HRS PRN Duoneb 0.5-3(2.5) Mg/3 Ml (Albuterol/Ipratropium) 3 Ml Ampul.neb 3 Ml NEB QID Ethambutol Hcl 400 Mg Tablet 800 Mg DAILY Rifampin 300 Mg Capsule 300 Mg BID Escitalopram Oxalate 10 Mg Tablet 10 Mg DAILY Temazepam 15 Mg Capsule 1 Cap HS Vitals/I & O Vital Sign - Last 24 Hours 06/09/17 06/09/17 06/09/17 06/09/17 15:00 16:25 17:10 19:20 Temp 99.1 97.9 99.1 97.9 Pulse 88 82 Resp 22 18 B/P (MAP) 100/63 (75) 100/63 (75) Pulse Ox 96 97 O2 Delivery Room Air Nasal Cannula Nasal Cannula Nasal Cannula O2 Flow Rate 2.0 3.0 3.0 06/09/17 06/09/17 06/09/17 06/09/17 19:42 20:00 22:02 22:15 Pulse Ox 97 O2 Delivery Nasal Cannula Nasal Cannula Nasal Cannula Nasal Cannula O2 Flow Rate 2.0 2.0 2.0 2.0 06/09/17 06/10/17 06/10/17 06/10/17 23:20 02:12 03:20 05:37 Temp 98.9 98.1 98.9 98.1 Pulse 82 84 Resp 18 18 B/P (MAP) 106/69 (81) 106/67 (80) Pulse Ox 98 97 100 90 O2 Delivery Nasal Cannula Nasal Cannula Nasal Cannula Nasal Cannula O2 Flow Rate 3.0 2.0 3.0 2.0 06/10/17 06/10/17 06/10/17 06/10/17 07:00 07:46 08:09 11:00 Temp 99.6 99.3 99.6 99.3 Pulse 97 95 Resp 20 20 B/P (MAP) 93/66 (75) 103/65 (78) Pulse Ox 94 96 93 O2 Delivery Nasal Cannula Nasal Cannula Nasal Cannula Nasal Cannula O2 Flow Rate 3.0 2.0 3.0 3.0 06/10/17 06/10/17 11:33 13:00 O2 Delivery Nasal Cannula Nasal Cannula O2 Flow Rate 2.0 3.0 Intake and Output 06/09/17 06/09/17 06/10/17 15:00 23:00 07:00 Intake Total 400 ml 300 ml Balance 400 ml 300 ml MANI MCHUGH MD Jun 10, 2017 14:43
[2017-06-10 15:00] VITALS: BP 107/51
[2017-06-10 19:15] VITALS: BP 100/61
[2017-06-10] MEDS: BENZONATATE 100 MG CAPSULE. PO PRN (21:09)
[2017-06-10] MEDS: TEMAZEPAM 15 MG CAPSULE PO SCH (22:52)
[2017-06-10 23:15] VITALS: BP 109/78
[2017-06-11 03:25] VITALS: BP 84/52
[2017-06-11] MEDS: ALBUTEROL SULFATE 2.5 MG/3 ML NEBU. NEB PRN ×2 (05:29→23:56)
[2017-06-11 07:04] VITALS: BP_SYST 107; BP_SYST 7; BP_DIAS 76
[2017-06-11] MEDS: IPRATRPIUM/ALBUTEROL 0.5/2.5MG 3 ML NEBU. NEB SCH ×4 (07:50→19:36)
[2017-06-11] MEDS: riFAMpin 300 MG CAPSULE. PO SCH ×2 (08:24→23:53)
[2017-06-11] MEDS: HYDROcodone/APAP 5/325MG 1 TAB TABLET PO PRN ×2 (08:24→23:52)
[2017-06-11] MEDS: ESCITALOPRAM 10 MG TABLET. PO SCH (08:24)
[2017-06-11] MEDS: PANTOPRAZOLE 40 MG TABLET.DR. PO SCH (08:24)
[2017-06-11] MEDS: ETHAMBUTOL HCL 400 MG TABLET PO SCH (08:24)
[2017-06-11] MEDS: BENZONATATE 100 MG CAPSULE. PO PRN (08:27)
[2017-06-11] MEDS: LORazepam 0.5 MG TABLET PO PRN ×3 (08:27→23:52)
[2017-06-11 10:41] VITALS: BP 96/64
--- NOTE | 2017-06-11 13:00 | PDOC ---
PULMONARY PROGRESS NOTES Subjective had anxiety attack last night persistent cough Vitals Vital Signs Date Time Temp Pulse Resp B/P (MAP) Pulse Ox O2 Delivery O2 Flow Rate FiO2 06/11/17 12:08 Nasal Cannula 2.0 06/11/17 10:41 98.9 82 20 96/64 (75) 98 98.9 General: Alert, No acute distress HEENT: Other Lungs: Other (decrease bs) Cardiovascular: S1, S2 Abdomen: Soft, Non-tender Neuro Exam: Alert Extremities: No Edema, Other Skin: Warm Medications Active Scripts Medications Dose Route/Sig Max Daily Dose Days Date Category Hydrocodone-Apap 5-325 (Hydrocodone Bit/Acetaminophen) 1 Each Tablet 1 Tab PO PRN Q4H PRN 30 05/26/17 Rx Tylenol (Acetaminophen) 325 Mg Tablet 2 Tab PO PRN Q4HRS 05/22/17 Reported Tessalon Perle (Benzonatate) 100 Mg Capsule 100 Mg PO TID PRN 03/26/17 Rx Albuterol Sulfate Conc Neb Soln (Albuterol Sulfate) 2.5 Mg/0.5 Ml Vial.neb 1 Vial NEB Q4HRS 02/25/17 Reported Proair Hfa Inhaler (Albuterol Sulfate) 8.5 Gm Hfa.aer.ad 1 Puff INH PRN Q4HRS PRN 02/25/17 Reported Duoneb 0.5-3(2.5) Mg/3 Ml (Albuterol/Ipratropium) 3 Ml Ampul.neb 3 Ml NEB QID 02/25/17 Reported Ethambutol Hcl 400 Mg Tablet 800 Mg DAILY 10/22/16 Reported Rifampin 300 Mg Capsule 300 Mg BID 10/22/16 Reported Escitalopram Oxalate 10 Mg Tablet 10 Mg DAILY 10/22/16 Reported Temazepam 15 Mg Capsule 1 Cap HS 10/22/16 Reported Comments CTA CHEST 1. No evidence for acute pulmonary embolism. 2. Stable pleural-parenchymal changes in the left lung apex compatible with a cavitary lesion and associated scarring. 3. Multifocal solid noncalcified pulmonary nodules in the lungs are stable without significant interval change since 02/03/2017. 4. Severe centrilobular emphysema. Impression . MAC/ TREATED WITH RIFAMPIN/ETHAM CHEST PAIN , PER CARDIOLOGY APPEARS ATYPICAL.CTA CHEST WITH NO PE GERD CMP ABNORMAL CXR CHRONIC CHANGES/ CT SCAN WITH UNCHANGED FINDINGS PERSISTENT COUGH Plan . OXYGEN FOLLOW CARDIOLOGY REC ADD EMPIRIC ANTIBX MAC RX OK WITH WITH ONE MORE DAY IN HOSPITAL DONY ARCE MD Jun 11, 2017 13:00
--- NOTE | 2017-06-11 13:16 | PN ---
PROGRESS NOTES Subjective Subjective Resting slightly propped up in bed in NAD Has an episode of severe anxiety last night Was seen by Dr Epstein who added Dixycycline Objective Objective Vital Signs Date Time Temp Pulse Resp B/P (MAP) Pulse Ox O2 Delivery O2 Flow Rate FiO2 06/11/17 12:08 Nasal Cannula 2.0 06/11/17 10:41 98.9 82 20 96/64 (75) 98 98.9 Intake and Output 06/11/17 07:00 Intake Total 700 ml Balance 700 ml Intake Oral 700 ml # Voids 4 # Bowel Movements 1 Physical Exam Physical Exam Resting slightly propped up in bed Pale but not jaundice or cyanosed vitals are stable COMMENT Severe COPD GERD Mycobacterium avium complex non ischemic cardiomyopathy Diagnosis DIAGNOSIS Severe COPD Severe GERD M B Complex non ischemic cardiomyopathy PROBLEM LIST Problems Medical Problems: (1) COPD (chronic obstructive pulmonary disease) Status: Acute Assessment Assessment Problems Medical Problems: (1) COPD (chronic obstructive pulmonary disease) Status: Acute Plan Plan of Care To add doxycycline continue bronchodilators PPI STEROIDS Pain medication anxiolytics Comment Medications Current Medications Albuterol/ Ipratropium (Duoneb) 3 ml 1X ONCE NEB Last administered on 19:40; Start 06/07/17 at 20:00; Stop 06/07/17 at 20:01; Status DC Methylprednisolone Sodium Succinate (SOLU-Medrol 125MG VIAL) 125 mg 1X ONCE IV Last administered on 06/07/17 19:44; Start 06/07/17 at 20:00; Stop 06/07/17 at 20:01; Status DC Albuterol/ Ipratropium (Duoneb) 3 ml STK-MED ONCE .ROUTE ; Start 06/07/17 at 19: 34; Stop 06/07/17 at 19:35; Status DC Morphine Sulfate 2 mg PRN Q15MIN PRN IV/SQ PAIN GREATER THAN 3/10 Last administered on 06/07/17 20:22; Start 06/07/17 at 20:15; Stop 06/08/17 at 00:00; Status DC Azithromycin 250 ml @ 250 mls/hr 1X ONCE IV Last administered on 06/07/17 20: 42; Start 06/07/17 at 20:30; Stop 06/07/17 at 21:29; Status DC Ondansetron HCl (Zofran) 4 mg PRN Q8HRS PRN IV NAUSEA/VOMITING; Start 06/07/17 at 21:15; Stop 06/08/17 at 21:14; Status DC Morphine Sulfate 2 mg PRN Q4HRS PRN IV SEVERE PAIN; Start 06/07/17 at 21:15 Acetaminophen (Tylenol) 650 mg PRN Q4HRS PRN PO MILD PAIN/TEMP; Start 06/08/17 at 00:00 Benzonatate (Tessalon Perle) 100 mg PRN TID PRN PO COUGH Last administered on 09:14; Start 06/08/17 at 00:00; Stop 06/08/17 at 17:02; Status DC Ethambutol HCl (Myambutol) 800 mg DAILY PO Last administered on 06/11/17 08:24 ; Start 06/08/17 at 09:00 Acetaminophen/ Hydrocodone Bitart (Lortab 5/325) 1 tab PRN Q4HRS PRN PO MODERATE PAIN Last administered on 06/11/17 08:24; Start 06/08/17 at 00:00 Albuterol/ Ipratropium (Duoneb) 3 ml RTQID NEB Last administered on 06/11/17 12:07; Start 06/08/17 at 08:00 Rifampin (Rifadin) 300 mg BID PO Last administered on 06/11/17 08:24; Start at 09:00 Temazepam (Restoril) 15 mg HS PO Last administered on 06/10/17 22:52; Start at 21:00 Non-Formulary Medication 1 vial Q4HRS NEB ; Start 06/08/17 at 00:00; Status UNV Non-Formulary Medication 1 puff PRN Q4HRS PRN INH SHORTNESS OF BREATH; Start at 00:00; Status UNV Escitalopram Oxalate (Lexapro) 10 mg DAILY PO Last administered on 06/08/17 09: 14; Start 06/08/17 at 09:00; Stop 06/10/17 at 08:55; Status DC Albuterol/ Ipratropium (Duoneb) 3 ml 1X ONCE NEB Last administered on 00:15; Start 06/08/17 at 00:30; Stop 06/08/17 at 00:31; Status DC Albuterol Sulfate (Ventolin Neb Soln) 2.5 mg PRN Q4HRS PRN NEB SHORTNESS OF BREATH Last administered on 06/11/17 05:29; Start 06/08/17 at 00:15 Temazepam (Restoril) 15 mg 1X ONCE PO Last administered on 06/08/17 02:04; Start 06/08/17 at 02:00; Stop 06/08/17 at 02:01; Status DC Pantoprazole Sodium (Protonix) 40 mg DAILYAC PO Last administered on 06/11/17 08:24; Start 06/08/17 at 13:45 Al Hydroxide/Mg Hydroxide (Mylanta Plus Xs) 30 ml PRN Q2HR PRN PO HEARTBURN / GAS Last administered on 06/08/17 15:06; Start 06/08/17 at 13:45 Pantoprazole Sodium (Protonix) 40 mg 1X ONCE PO ; Start 06/08/17 at 13:45; Stop 06/08/17 at 13:46; Status UNV Benzonatate (Tessalon Perle) 200 mg PRN TID PRN PO COUGH Last administered on 08:27; Start 06/08/17 at 17:15 Lorazepam (Ativan) 0.5 mg PRN Q4HRS PRN PO ANXIETY / AGITATION Last administered on 06/11/17 08:27; Start 06/08/17 at 22:45 Iohexol (Omnipaque 300 Mg/ml) 75 ml 1X ONCE IV Last administered on 06/09/17 14:21; Start 06/09/17 at 12:45; Stop 06/09/17 at 12:46; Status DC Info (Do NOT chart on this entry -- for MONITORING) 1 each PRN DAILY PRN MC SEE COMMENTS; Start 06/09/17 at 12:45; Stop 06/11/17 at 12:44; Status DC Albuterol Sulfate (Ventolin Neb Soln) 2.5 mg PRN Q2HR PRN NEB SHORTNESS OF BREATH Last administered on 06/10/17 05:37; Start 06/09/17 at 14:30 Escitalopram Oxalate (Lexapro) 10 mg DAILY PO Last administered on 06/11/17 08 :24; Start 06/10/17 at 09:00 Doxycycline Hyclate (Vibra-Tab) 100 mg BID PO ; Start 06/11/17 at 13:30 Active Scripts Active Hydrocodone-Apap 5-325 (Hydrocodone Bit/Acetaminophen) 1 Each Tablet 1 Tab PO PRN Q4H PRN 30 Days Tessalon Perle (Benzonatate) 100 Mg Capsule 100 Mg PO TID PRN Reported Tylenol (Acetaminophen) 325 Mg Tablet 2 Tab PO PRN Q4HRS Albuterol Sulfate Conc Neb Soln (Albuterol Sulfate) 2.5 Mg/0.5 Ml Vial.neb 1 Vial NEB Q4HRS Proair Hfa Inhaler (Albuterol Sulfate) 8.5 Gm Hfa.aer.ad 1 Puff INH PRN Q4HRS PRN Duoneb 0.5-3(2.5) Mg/3 Ml (Albuterol/Ipratropium) 3 Ml Ampul.neb 3 Ml NEB QID Ethambutol Hcl 400 Mg Tablet 800 Mg DAILY Rifampin 300 Mg Capsule 300 Mg BID Escitalopram Oxalate 10 Mg Tablet 10 Mg DAILY Temazepam 15 Mg Capsule 1 Cap HS Vitals/I & O Vital Sign - Last 24 Hours 06/10/17 06/10/17 06/10/17 06/10/17 15:00 15:10 16:58 19:15 Temp 98.1 99.0 98.1 99.0 Pulse 91 91 Resp 20 20 B/P (MAP) 107/51 (69) 100/61 (74) Pulse Ox 96 94 O2 Delivery Nasal Cannula Nasal Cannula Nasal Cannula Nasal Cannula O2 Flow Rate 3.0 2.0 3.0 3.0 06/10/17 06/10/17 06/10/17 06/10/17 19:23 20:36 23:07 23:15 Temp 99.1 99.1 Pulse 97 Resp 24 B/P (MAP) 109/78 (88) Pulse Ox 88 96 97 O2 Delivery Room Air Nasal Cannula Nasal Cannula Nasal Cannula O2 Flow Rate 2.0 2.0 3.0 06/11/17 06/11/17 06/11/17 06/11/17 03:25 05:29 07:04 07:51 Temp 98.0 99.4 98.0 99.4 Pulse 82 89 Resp 18 22 B/P (MAP) 84/52 (63) 107/76 (86) Pulse Ox 98 96 93 96 O2 Delivery Nasal Cannula Nasal Cannula Nasal Cannula Nasal Cannula O2 Flow Rate 3.0 2.0 3.0 2.0 06/11/17 06/11/17 06/11/17 06/11/17 08:24 09:49 10:41 12:08 Temp 98.9 98.9 Pulse 82 Resp 20 B/P (MAP) 96/64 (75) Pulse Ox 98 O2 Delivery Nasal Cannula Nasal Cannula Nasal Cannula Nasal Cannula O2 Flow Rate 3.0 3.0 2.0 Intake and Output 06/10/17 06/10/17 06/11/17 15:00 23:00 07:00 Intake Total 400 ml 300 ml Balance 400 ml 300 ml MANI MCHUGH MD Jun 11, 2017 13:16
[2017-06-11 14:49] VITALS: BP 91/64
[2017-06-11] MEDS: DOXYCYCLINE HYCLATE 100 MG TABLET PO SCH ×2 (15:32→23:52)
[2017-06-11 19:36] VITALS: BP 97/62
[2017-06-11 23:09] VITALS: BP 92/60
[2017-06-11] MEDS: TEMAZEPAM 15 MG CAPSULE PO SCH (23:53)
[2017-06-12 02:39] VITALS: BP 88/62
[2017-06-12 06:45] VITALS: BP 97/62
[2017-06-12] MEDS: PANTOPRAZOLE 40 MG TABLET.DR. PO SCH ×2 (06:56→12:21)
[2017-06-12] MEDS: IPRATRPIUM/ALBUTEROL 0.5/2.5MG 3 ML NEBU. NEB SCH ×3 (07:06→15:33)
[2017-06-12 10:45] VITALS: BP 93/63
--- NOTE | 2017-06-12 11:04 | PDOC ---
PULMONARY PROGRESS NOTES Subjective cough improved with antibiotics Vitals Vital Signs Date Time Temp Pulse Resp B/P (MAP) Pulse Ox O2 Delivery O2 Flow Rate FiO2 06/12/17 10:45 98.4 76 18 93/63 (73) 94 Room Air 98.4 06/12/17 07:07 2.0 General: Alert, No acute distress HEENT: Other Lungs: Other (decrease bs) Cardiovascular: S1, S2 Abdomen: Soft, Non-tender Neuro Exam: Alert Extremities: No Edema, Other Skin: Warm Medications Active Scripts Medications Dose Route/Sig Max Daily Dose Days Date Category Hydrocodone-Apap 5-325 (Hydrocodone Bit/Acetaminophen) 1 Each Tablet 1 Tab PO PRN Q4H PRN 30 05/26/17 Rx Tylenol (Acetaminophen) 325 Mg Tablet 2 Tab PO PRN Q4HRS 05/22/17 Reported Tessalon Perle (Benzonatate) 100 Mg Capsule 100 Mg PO TID PRN 03/26/17 Rx Albuterol Sulfate Conc Neb Soln (Albuterol Sulfate) 2.5 Mg/0.5 Ml Vial.neb 1 Vial NEB Q4HRS 02/25/17 Reported Proair Hfa Inhaler (Albuterol Sulfate) 8.5 Gm Hfa.aer.ad 1 Puff INH PRN Q4HRS PRN 02/25/17 Reported Duoneb 0.5-3(2.5) Mg/3 Ml (Albuterol/Ipratropium) 3 Ml Ampul.neb 3 Ml NEB QID 02/25/17 Reported Ethambutol Hcl 400 Mg Tablet 800 Mg DAILY 10/22/16 Reported Rifampin 300 Mg Capsule 300 Mg BID 10/22/16 Reported Escitalopram Oxalate 10 Mg Tablet 10 Mg DAILY 10/22/16 Reported Temazepam 15 Mg Capsule 1 Cap HS 10/22/16 Reported Comments CTA CHEST 1. No evidence for acute pulmonary embolism. 2. Stable pleural-parenchymal changes in the left lung apex compatible with a cavitary lesion and associated scarring. 3. Multifocal solid noncalcified pulmonary nodules in the lungs are stable without significant interval change since 02/03/2017. 4. Severe centrilobular emphysema. Impression . MAC/ TREATED WITH RIFAMPIN/ETHAM CHEST PAIN , PER CARDIOLOGY APPEARS ATYPICAL.CTA CHEST WITH NO PE GERD CMP ABNORMAL CXR CHRONIC CHANGES/ CT SCAN WITH UNCHANGED FINDINGS PERSISTENT COUGH/ IMPROVED WITH ANTIBIOTICS Plan . OXYGEN FOLLOW CARDIOLOGY REC EMPIRIC ANTIBX MAC RX OK WITH TRANSFER TO REHAB DONY ARCE MD Jun 12, 2017 11:04
[2017-06-12] MEDS: ESCITALOPRAM 10 MG TABLET. PO SCH (12:21)
[2017-06-12] MEDS: riFAMpin 300 MG CAPSULE. PO SCH (12:21)
[2017-06-12] MEDS: LORazepam 0.5 MG TABLET PO PRN (12:21)
[2017-06-12] MEDS: DOXYCYCLINE HYCLATE 100 MG TABLET PO SCH (12:21)
[2017-06-12] MEDS: ETHAMBUTOL HCL 400 MG TABLET PO SCH (12:21)
--- NOTE | 2017-06-12 13:24 | PDOC3 ---
Discharge Summary Date of Admission: Jun 07, 2017 Date of Discharge: Jun 12, 2017 Admitting Diagnosis comment: CP [place] R/O COPD Severe GERD M Avium Complex NICM Problems: FINAL DIAGNOSIS Problems Medical Problems: (1) COPD (chronic obstructive pulmonary disease) Status: Acute Brief Hospital Course Mr. 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 and CT angio of the chest was negative for pulmonary embolism He was treated for GERD with PPI as well as antacids with some improvement He continues to to be extremely anxious at time and was started on Ativan CONDITION AT DISCHARGE: Improved Discharge Medications Current Medications Albuterol/ Ipratropium (Duoneb) 3 ml 1X ONCE NEB Last administered on 19:40; Start 06/07/17 at 20:00; Stop 06/07/17 at 20:01; Status DC Methylprednisolone Sodium Succinate (SOLU-Medrol 125MG VIAL) 125 mg 1X ONCE IV Last administered on 06/07/17 19:44; Start 06/07/17 at 20:00; Stop 06/07/17 at 20:01; Status DC Albuterol/ Ipratropium (Duoneb) 3 ml STK-MED ONCE .ROUTE ; Start 06/07/17 at 19: 34; Stop 06/07/17 at 19:35; Status DC Morphine Sulfate 2 mg PRN Q15MIN PRN IV/SQ PAIN GREATER THAN 3/10 Last administered on 06/07/17 20:22; Start 06/07/17 at 20:15; Stop 06/08/17 at 00:00; Status DC Azithromycin 250 ml @ 250 mls/hr 1X ONCE IV Last administered on 06/07/17 20: 42; Start 06/07/17 at 20:30; Stop 06/07/17 at 21:29; Status DC Ondansetron HCl (Zofran) 4 mg PRN Q8HRS PRN IV NAUSEA/VOMITING; Start 06/07/17 at 21:15; Stop 06/08/17 at 21:14; Status DC Morphine Sulfate 2 mg PRN Q4HRS PRN IV SEVERE PAIN; Start 06/07/17 at 21:15 Acetaminophen (Tylenol) 650 mg PRN Q4HRS PRN PO MILD PAIN/TEMP; Start 06/08/17 at 00:00 Benzonatate (Tessalon Perle) 100 mg PRN TID PRN PO COUGH Last administered on 09:14; Start 06/08/17 at 00:00; Stop 06/08/17 at 17:02; Status DC Ethambutol HCl (Myambutol) 800 mg DAILY PO Last administered on 06/12/17 12:21 ; Start 06/08/17 at 09:00 Acetaminophen/ Hydrocodone Bitart (Lortab 5/325) 1 tab PRN Q4HRS PRN PO MODERATE PAIN Last administered on 06/11/17 23:52; Start 06/08/17 at 00:00 Albuterol/ Ipratropium (Duoneb) 3 ml RTQID NEB Last administered on 06/12/17 11:10; Start 06/08/17 at 08:00 Rifampin (Rifadin) 300 mg BID PO Last administered on 06/12/17 12:21; Start at 09:00 Temazepam (Restoril) 15 mg HS PO Last administered on 06/11/17 23:53; Start at 21:00 Non-Formulary Medication 1 vial Q4HRS NEB ; Start 06/08/17 at 00:00; Status UNV Non-Formulary Medication 1 puff PRN Q4HRS PRN INH SHORTNESS OF BREATH; Start at 00:00; Status UNV Escitalopram Oxalate (Lexapro) 10 mg DAILY PO Last administered on 06/08/17 09: 14; Start 06/08/17 at 09:00; Stop 06/10/17 at 08:55; Status DC Albuterol/ Ipratropium (Duoneb) 3 ml 1X ONCE NEB Last administered on 00:15; Start 06/08/17 at 00:30; Stop 06/08/17 at 00:31; Status DC Albuterol Sulfate (Ventolin Neb Soln) 2.5 mg PRN Q4HRS PRN NEB SHORTNESS OF BREATH Last administered on 06/11/17 23:56; Start 06/08/17 at 00:15 Temazepam (Restoril) 15 mg 1X ONCE PO Last administered on 06/08/17 02:04; Start 06/08/17 at 02:00; Stop 06/08/17 at 02:01; Status DC Pantoprazole Sodium (Protonix) 40 mg DAILYAC PO Last administered on 06/12/17 12:21; Start 06/08/17 at 13:45 Al Hydroxide/Mg Hydroxide (Mylanta Plus Xs) 30 ml PRN Q2HR PRN PO HEARTBURN / GAS Last administered on 06/08/17 15:06; Start 06/08/17 at 13:45 Pantoprazole Sodium (Protonix) 40 mg 1X ONCE PO ; Start 06/08/17 at 13:45; Stop 06/08/17 at 13:46; Status UNV Benzonatate (Tessalon Perle) 200 mg PRN TID PRN PO COUGH Last administered on 08:27; Start 06/08/17 at 17:15 Lorazepam (Ativan) 0.5 mg PRN Q4HRS PRN PO ANXIETY / AGITATION Last administered on 06/12/17 12:21; Start 06/08/17 at 22:45 Iohexol (Omnipaque 300 Mg/ml) 75 ml 1X ONCE IV Last administered on 06/09/17 14:21; Start 06/09/17 at 12:45; Stop 06/09/17 at 12:46; Status DC Info (Do NOT chart on this entry -- for MONITORING) 1 each PRN DAILY PRN MC SEE COMMENTS; Start 06/09/17 at 12:45; Stop 06/11/17 at 12:44; Status DC Albuterol Sulfate (Ventolin Neb Soln) 2.5 mg PRN Q2HR PRN NEB SHORTNESS OF BREATH Last administered on 06/10/17 05:37; Start 06/09/17 at 14:30 Escitalopram Oxalate (Lexapro) 10 mg DAILY PO Last administered on 06/12/17 12 :21; Start 06/10/17 at 09:00 Doxycycline Hyclate (Vibra-Tab) 100 mg BID PO Last administered on 06/12/17 12 :21; Start 06/11/17 at 13:30 Active Scripts Active Hydrocodone-Apap 5-325 (Hydrocodone Bit/Acetaminophen) 1 Each Tablet 1 Tab PO PRN Q4H PRN 30 Days Tessalon Perle (Benzonatate) 100 Mg Capsule 100 Mg PO TID PRN Reported Tylenol (Acetaminophen) 325 Mg Tablet 2 Tab PO PRN Q4HRS Albuterol Sulfate Conc Neb Soln (Albuterol Sulfate) 2.5 Mg/0.5 Ml Vial.neb 1 Vial NEB Q4HRS Proair Hfa Inhaler (Albuterol Sulfate) 8.5 Gm Hfa.aer.ad 1 Puff INH PRN Q4HRS PRN Duoneb 0.5-3(2.5) Mg/3 Ml (Albuterol/Ipratropium) 3 Ml Ampul.neb 3 Ml NEB QID Ethambutol Hcl 400 Mg Tablet 800 Mg DAILY Rifampin 300 Mg Capsule 300 Mg BID Escitalopram Oxalate 10 Mg Tablet 10 Mg DAILY Temazepam 15 Mg Capsule 1 Cap HS Vital Signs Vital Signs Date Time Temp Pulse Resp B/P (MAP) Pulse Ox O2 Delivery O2 Flow Rate FiO2 06/12/17 11:10 Nasal Cannula 2.0 06/12/17 10:45 98.4 76 18 93/63 (03) 94 98.4 Allergies Allergies Coded Allergies Type Severity Reaction Last Updated Verified No Known Drug Allergies 02/02/16 No Disposition/Orders: Other (Discahrge to [facility]) MANI MCHUGH MD Jun 12, 2017 13:24
[2017-06-12 14:42] VITALS: BP 103/67
== END 2017-06-12 16:50 | DRG 177 ==
LOC: ER 19:22 → 6 SOUTH 20:33
PROVIDERS: ADMIT Internal Medicine; ATTEND Internal Medicine
DX: A31.0 Pulmonary mycobacterial infection (principal); J96.20 Acute and chronic respiratory failure, unspecified whether with hypoxia or hypercapnia; I42.9 Cardiomyopathy, unspecified; J44.1 Chronic obstructive pulmonary disease with (acute) exacerbation; M94.0 Chondrocostal junction syndrome [Tietze]; K21.9 Gastro-esophageal reflux disease without esophagitis; F32.9 Major depressive disorder, single episode, unspecified; F41.1 Generalized anxiety disorder; R62.7 Adult failure to thrive; F14.90 Cocaine use, unspecified, uncomplicated; Z86.11 Personal history of tuberculosis; Z72.0 Tobacco use
CPT/HCPCS: 36415; 36600; 71010; 71275; 80048; 80053; 80076; 81001; 82553; 82805; 83690; 83735; 83880; 84443; 84484; 85027; 85379; 85610; 87641; 93005; 94250; 94640; 94760; 96365; 96375; G0481; J0456; J2270; J2930; J7620; Q9967; 99285-25

== ENCOUNTER 2017-06-13 11:22 | Inpatient (IN) | payer OTHER ==
[~2017-06-13] VITALS: Ht 175.3 cm; Wt 54.4 kg
--- NOTE | 2017-06-13 11:35 | PHYS DOC ---
Past Medical History Past Medical History: COPD, Pneumonia Additional Past Medical Histor: CARDIOMYOPATHY, MAC Past Surgical History: Other Additional Past Surgical Histo: bronchoscopy Alcohol Use: Occasionally Drug Use: None Adult General HPI HPI Patient is a 62 year old male who presents with shortness breath and chest pain. He states it started around 8:00 this morning is constant symptoms since chest radiates to his lateral aspect of his chest is been feeling short of breath. He states he's been coughing so hard this morning he vomited twice. States he's felt nauseated. He states he has a nurse to call 911 at 1020 and 11: 00 since then showed up he called himself. States he's been having productive cough that's is normal productive cough he's been having with his COPD. Review of Systems Review of Systems Constitutional: Denies fever or chills [] Eyes: Denies change in visual acuity, redness, or eye pain [] HENT: Denies nasal congestion or sore throat [] Respiratory: Positive for shortness of breath and cough. Cardiovascular: No additional information not addressed in HPI [] GI: Denies abdominal pain, nausea, vomiting, bloody stools or diarrhea [] : Denies dysuria or hematuria [] Musculoskeletal: Denies back pain or joint pain [] Integument: Denies rash or skin lesions [] Neurologic: Denies headache, focal weakness or sensory changes [] Endocrine: Denies polyuria or polydipsia [] Current Medications Current Medications Current Medications Medications (Trade) Dose Ordered Sig/[facility] Start Time Stop Time Status Last Admin Dose Admin Albuterol/ Ipratropium (Duoneb) 3 ml 1X ONCE 06/13/17 12:30 06/13/17 12:31 DC 06/13/17 12:34 3 ML Allergies Allergies Allergies Coded Allergies Type Severity Reaction Last Updated Verified No Known Drug Allergies 02/02/16 No Physical Exam Physical Exam Constitutional: Well developed, well nourished, no acute distress, non-toxic appearance. [] HENT: Normocephalic, atraumatic, bilateral external ears normal, oropharynx moist, no oral exudates, nose normal. [] Eyes: PERRLA, EOMI, conjunctiva normal, no discharge. [] Neck: Normal range of motion, no tenderness, supple, no stridor. [] Cardiovascular:Heart rate regular rhythm, no murmur [] Lungs & Thorax: Crease breath sounds bilaterally with expiratory wheezing Abdomen: Bowel sounds normal, soft, no tenderness, no masses, no pulsatile masses. [] Skin: Warm, dry, no erythema, no rash. [] Back: No tenderness, no CVA tenderness. [] Extremities: No tenderness, no cyanosis, no clubbing, ROM intact, no edema. [] Neurologic: Alert and oriented X 3, normal motor function, normal sensory function, no focal deficits noted. [] Psychologic: Affect normal, judgement normal, mood normal. [] Current Patient Data Vital Signs Vital Signs Date Time Temp Pulse Resp B/P (MAP) Pulse Ox O2 Delivery O2 Flow Rate FiO2 06/13/17 13:35 74 20 101/63 (76) 94 Room Air 06/13/17 11:39 98.0 98.0 Lab Values Laboratory Tests Test 06/13/17 12:15 06/13/17 13:38 06/13/17 14:25 White Blood Count 4.9 x10^3/uL (4.0-11.0) Red Blood Count 4.23 x10^6/uL (4.30-5.70) L Hemoglobin 13.5 g/dL (13.0-17.5) Hematocrit 40.4 % (39.0-53.0) Mean Corpuscular Volume 96 fL (79-100) Mean Corpuscular Hemoglobin 32 pg (25-35) Mean Corpuscular Hemoglobin Concent 33 g/dL (31-37) Red Cell Distribution Width 13.8 % (11.5-14.5) Platelet Count 190 x10^3/uL (140-400) Neutrophils (%) (Auto) 66 % (31-73) Lymphocytes (%) (Auto) 18 % (24-48) L Monocytes (%) (Auto) 9 % (0-9) Eosinophils (%) (Auto) 7 % (0-3) H Basophils (%) (Auto) 0 % (0-3) Neutrophils # (Auto) 3.2 x10^3uL (1.8-7.7) Lymphocytes # (Auto) 0.9 x10^3/uL (1.0-4.8) L Monocytes # (Auto) 0.5 x10^3/uL (0.0-1.1) Eosinophils # (Auto) 0.3 x10^3/uL (0.0-0.7) Basophils # (Auto) 0.0 x10^3/uL (0.0-0.2) Prothrombin Time 12.4 SEC (11.7-14.0) Prothrombin Time INR 1.0 (0.8-1.1) Sodium Level 138 mmol/L (136-145) Potassium Level 4.0 mmol/L (3.5-5.1) Chloride Level 101 mmol/L (98-107) Carbon Dioxide Level 30 mmol/L (21-32) Anion Gap 7 (6-14) Blood Urea Nitrogen 15 mg/dL (8-26) Creatinine 0.7 mg/dL (0.7-1.3) Estimated GFR (Cockcroft-Gault) 113.9 Glucose Level 104 mg/dL (70-99) H Calcium Level 9.3 mg/dL (8.5-10.1) Magnesium Level 1.9 mg/dL (1.8-2.4) Total Bilirubin 0.4 mg/dL (0.2-1.0) Direct Bilirubin 0.1 mg/dL (0.0-0.2) Aspartate Amino Transferase (AST) 26 U/L (15-37) Alanine Aminotransferase (ALT) 19 U/L (16-63) Alkaline Phosphatase 44 U/L (46-116) L Creatine Kinase 56 U/L (39-308) 49 U/L (39-308) Creatine Kinase MB (Mass) 2.6 ng/mL (0.0-3.6) 2.4 ng/mL (0.0-3.6) Creatine Kinase MB Relative Index % (0-4) 4.9 % (0-4) H Troponin I Quantitative < 0.017 ng/mL (0.000-0.055) < 0.017 ng/mL (0.000-0.055) SS-[id number]-Type Natriuretic Peptide 173 pg/mL (0-124) H Total Protein 8.3 g/dL (6.4-8.2) H Albumin 3.2 g/dL (3.4-5.0) L Lipase 166 U/L (73-393) Thyroid Stimulating Hormone (TSH) 5.671 uIU/mL (0.358-3.74) H Urine Collection Type Void Urine Color [place] Urine Clarity Clear Urine pH 6.5 Urine Specific [place] 1.025 Urine Protein Negative mg/dL (NEG-TRACE) Urine Glucose (UA) Negative mg/dL (NEG) Urine Ketones (Stick) Negative mg/dL (NEG) Urine Blood Negative (NEG) Urine Nitrite Negative (NEG) Urine Bilirubin Small (NEG) Urine Urobilinogen Dipstick 0.2 mg/dL (0.2 mg/dL) Urine Leukocyte Esterase Small (NEG) Urine RBC 0 /HPF (0-2) Urine WBC Occ /HPF (0-4) Urine Squamous Epithelial Cells Occ /LPF Urine Bacteria 0 /HPF (0-FEW) Urine Mucus Mod /LPF Urine Opiates Screen Pos (NEG) Urine Methadone Screen Neg (NEG) Urine Barbiturates Neg (NEG) Urine Phencyclidine Screen Neg (NEG) Urine Amphetamine/Methamphetamine Neg (NEG) Urine Benzodiazepines Screen Pos (NEG) Urine Cocaine Screen Neg (NEG) Urine Cannabinoids Screen Neg (NEG) Urine Ethyl Alcohol Neg (NEG) Laboratory Tests 06/13/17 12:15 Laboratory Tests 06/13/17 12:15 EKG EKG EKG shows sinus rhythm with rate of [address] elevations or T-wave inversions appreciated, normal axis, QTC 410 ms, as interpreted by me. EKG is unchanged since May 22, 2017 Radiology/Procedures Radiology/Procedures [facility] [address] [place] [address] IMAGING REPORT Signed PATIENT: DELFINO LEONARDO ACCOUNT: [id number] : 1955 LOCATION: ER AGE: 62 SEX: M EXAM STATUS: PRE ER ORD. PHYSICIAN: TG AVALOS MD REASON: soa PROCEDURE: PORTABLE CHEST 1V Chest radiograph 06/13/2017 at 1146 hours Indication: Increased shortness of breath Comparison: 06/07/2017 Technique: Single portable upright view of the chest is provided. Findings: Cardiomediastinal silhouette is within normal limits. There is scarring at the left lung apex which appears similar to the prior examination. This volume loss in the left lung. Blunting of the costophrenic angles bilaterally may represent small effusions versus pleural thickening. Right lung is clear. Similar appearance of pleural parenchymal opacities at the left lung base. Emphysematous changes are present. No pneumothorax or pulmonary vascular congestion. Impression: No significant interval change normal in appearance of the chest. DICTATED and SIGNED BY: ARELIS GRACE MD DATE: 06/13/17 1156 CC: TG AVALOS MD; DEBORAH PICKENS MD ~ Impressions: Chest pain Course & Med Decision Making Course & Med Decision Making Pertinent Labs and Imaging studies reviewed. (See chart for details) Patient presented with chest pain, EKG does not show any acute abnormality's. Troponin [address] Gilbert wanted the patient admitted to have cardiology and GI consultations. Patient's in stable condition this time being admitted. Dragon Disclaimer Dragon Disclaimer This electronic medical record was generated, in whole or in part, using a voice recognition dictation system. Departure Departure Impression: Primary Impression: Atypical chest pain Disposition: ADMITTED INPATIENT Admitting Physician: Shari Royal Condition: STABLE Referrals: DEBORAH PICKENS MD (PCP) TG AVALOS MD Jun 13, 2017 11:35
--- NOTE | 2017-06-13 12:00 | RAD ---
Chest radiograph 06/13/2017 at 1146 hours Indication: Increased shortness of breath Comparison: 06/07/2017 Technique: Single portable upright view of the chest is provided. Findings: Cardiomediastinal silhouette is within normal limits. There is scarring at the left lung apex which appears similar to the prior examination. This volume loss in the left lung. Blunting of the costophrenic angles bilaterally may represent small effusions versus pleural thickening. Right lung is clear. Similar appearance of pleural parenchymal opacities at the left lung base. Emphysematous changes are present. No pneumothorax or pulmonary vascular congestion. Impression: No significant interval change normal in appearance of the chest.
--- NOTE | 2017-06-13 12:04 | EKG ---
[facility] [address] [place] [address] Test Date: 2017-06-13 Test Time: 11:28:16 Pat Name: DELFINO LEONARDO Department: Room: Gender: M Pricer: : 1955 Requested By: TG AVALOS Order Number: [id number] Reading MD: May Herrera Measurements Intervals [place] Rate: 86 P: 90 [place]: 192 QRS: 84 QRSD: 74 T: 66 QT: 340 QTc: 410 Interpretive Statements SINUS RHYTHM NORMAL EKG Electronically Signed On 06-15-2017 15:39:06 CDT by May Herrera
[2017-06-13 12:25] LABS: BASO % 0 % (0-3); EOS % 7 % (0-3); HEMATOCRIT 40.4 % (39.0-53.0); HEMOGLOBIN 13.5 g/dL (13.0-17.5); LYMPH # 0.9 x10^3/uL (1.0-4.8); LYMPH % 18 % (24-48); MEAN CORPUSCULAR HEMOGLOBIN 32 pg (25-35); MEAN CORPUSCULAR HGB CONC 33 g/dL (31-37); MEAN CORPUSCULAR VOLUME 96 fL (79-100); MONO % 9 % (0-9); NEUT % 66 % (31-73); PLATELET COUNT 190 x10^3/uL (140-400); RED BLOOD COUNT 4.23 x10^6/uL (4.30-5.70); RED CELL DISTRIBUTION WIDTH 13.8 % (11.5-14.5); WHITE BLOOD COUNT 4.9 x10^3/uL (4.0-11.0)
[2017-06-13] MEDS ORDERED: IPRATRPIUM/ALBUTEROL 0.5/2.5MG 3 ML NEBU. NEB ONE (12:30)
[2017-06-13 12:38] LABS: CALCIUM 9.3 mg/dL (8.5-10.1); CREATININE 0.7 mg/dL (0.7-1.3); GFR 113.9
[2017-06-13 12:43] LABS: ALBUMIN 3.2 g/dL (3.4-5.0); DIRECT BILIRUBIN 0.1 mg/dL (0.0-0.2); MAGNESIUM 1.9 mg/dL (1.8-2.4); TOTAL BILIRUBIN 0.4 mg/dL (0.2-1.0); TOTAL PROTEIN 8.3 g/dL (6.4-8.2)
[2017-06-13 12:52] LABS: CKMB MASS 2.6 ng/mL (0.0-3.6); CREATINE KINASE 56 U/L (39-308)
[2017-06-13 13:06] LABS: PROTHROMBIN TIME PATIENT 12.4 SEC (11.7-14.0)
[2017-06-13 14:52] LABS: BILIRUBIN,URINE SMALL (NEG); GLUCOSE,URINE NEGATIVE (NEG); NITRITE,URINE NEGATIVE (NEG); PH,URINE 6.5; PROTEIN,URINE NEGATIVE (NEG-TRACE); UROBILINOGEN,URINE 0.2 mg/dL (0.2 mg/dL)
[2017-06-13 14:58] LABS: BACTERIA,URINE 0 /HPF (0-FEW); RBC,URINE 0 /HPF (0-2); SQUAMOUS EPITHELIAL CELL,UR OCC /LPF; WBC,URINE OCC /HPF (0-4)
[2017-06-13 14:59] LABS: CKMB MASS 2.4 ng/mL (0.0-3.6)
[2017-06-13 15:06] LABS: BARBITURATES NEG (NEG); BENZODIAZEPINES POS (NEG); CANNABINOIDS NEG (NEG); COCAINE NEG (NEG); METHADONE NEG (NEG); OPIATES POS (NEG); PHENCYCLIDINE NEG (NEG)
--- NOTE | 2017-06-13 15:06 | PDOC2 ---
CARDIAC CONSULT DATE OF CONSULT Date of Consult DATE: 06/13/17 TIME: 14:53 REASON FOR CONSULT Reason for Consult: Chest pain REFERRING PHYSICIAN Referring Physician: Syed SOURCE Source: Chart review, Patient HISTORY OF PRESENT ILLNESS HISTORY OF PRESENT ILLNESS This is a pleasant 62 yo male admitted for complains of chest pain and coughing. Reports that last night he had an itractable coughing episode of about 20 minutes coughing out yellow sputum and again this morning about 15 minutes. It appears that his SOA and vomiting spells occurred after coughing. His mid chest pain is reproducible with palpation and nonradiating. Denies any recent falls or injury. No palpitations. Reports on daily episode of sensation of sourness in the back of his throat but no apparent heartburn. He currently resides [facility] the [facility] and to this point there has been no changes to his activity tolerance. He has had multiple admission this yr in regards to CP and SOA and has been seen consistently by pulmonary. PAST MEDICAL HISTORY Past Medical History Cardiovascular: PAFIB, CHF. NICM with good resolution, recent EF now at 55% from 30% Pulmonary: severe COPD, Cavitary lesion persists in the left apex, MAC, pneumonia CENTRAL NERVOUS SYSTEM: Other (none) GI: No pertinent hx Heme/Onc: No pertinent hx Hepatobiliary: No pertinent hx Psych: No pertinent hx Musculoskeletal: OA, cachexia Rheumatologic: No pertinent hx Infectious disease: ENT: No pertinent hx Renal/: No pertinent hx Endocrine: No pertinent hx Dermatology: No pertinent hx PAST SURGICAL HISTORY Past Surgical History bronchoscopy; back surgery x2, hemorrhoidectomy FAMILY HISTORY Family History Cancer (lung - brother) SOCIAL HISTORY Social History Smoke: No (quit 40 pk yr) ALCOHOL: none Drugs: Other (hx of past cocaine and marijuana) Lives: Assisted CURRENT MEDICATIONS CURRENT MEDICATIONS Current Medications Medications (Trade) Dose Ordered Sig/Ken Route PRN Reason Start Time Stop Time Status Last Admin Dose Admin Albuterol/ Ipratropium (Duoneb) 3 ml 1X ONCE NEB 06/13/17 12:30 06/13/17 12:31 DC 06/13/17 12:34 ALLERGIES ALLERGIES: Coded Allergies: No Known Drug Allergies (Unverified , 02/02/16) ROS Review of System 14 point ROS evaluated with pertinent positives noted per HPI PHYSICAL EXAM General: Alert, Oriented X3, Cooperative, mild distress HEENT: Atraumatic, Mucous membr. moist/pink Heart: Regular rate (SR), Normal S1, Normal S2, Other (2/6 systolic murmur to LLS border) Abdomen: Soft, No tenderness Extremities: No cyanosis, No edema Skin: No breakdown, No significant lesion Neuro: Normal speech, Sensation intact Psych/Mental Status: Mental status NL, Mood NL MUSCULOSKELETAL: Osteoarthritic changes both hands VITALS VITALS Vital Signs Date Time Temp Pulse Resp B/P (MAP) Pulse Ox O2 Delivery O2 Flow Rate FiO2 06/13/17 13:35 74 20 101/63 (76) 94 Room Air 06/13/17 11:39 98.0 98.0 LABS Lab: Laboratory Tests Test 06/13/17 12:15 White Blood Count 4.9 x10^3/uL (4.0-11.0) Red Blood Count 4.23 x10^6/uL (4.30-5.70) Hemoglobin 13.5 g/dL (13.0-17.5) Hematocrit 40.4 % (39.0-53.0) Mean Corpuscular Volume 96 fL (79-100) Mean Corpuscular Hemoglobin 32 pg (25-35) Mean Corpuscular Hemoglobin Concent 33 g/dL (31-37) Red Cell Distribution Width 13.8 % (11.5-14.5) Platelet Count 190 x10^3/uL (140-400) Neutrophils (%) (Auto) 66 % (31-73) Lymphocytes (%) (Auto) 18 % (24-48) Monocytes (%) (Auto) 9 % (0-9) Eosinophils (%) (Auto) 7 % (0-3) Basophils (%) (Auto) 0 % (0-3) Neutrophils # (Auto) 3.2 x10^3uL (1.8-7.7) Lymphocytes # (Auto) 0.9 x10^3/uL (1.0-4.8) Monocytes # (Auto) 0.5 x10^3/uL (0.0-1.1) Eosinophils # (Auto) 0.3 x10^3/uL (0.0-0.7) Basophils # (Auto) 0.0 x10^3/uL (0.0-0.2) Prothrombin Time 12.4 SEC (11.7-14.0) Prothromb Time International Ratio 1.0 (0.8-1.1) Sodium Level 138 mmol/L (136-145) Potassium Level 4.0 mmol/L (3.5-5.1) Chloride Level 101 mmol/L (98-107) Carbon Dioxide Level 30 mmol/L (21-32) Anion Gap 7 (6-14) Blood Urea Nitrogen 15 mg/dL (8-26) Creatinine 0.7 mg/dL (0.7-1.3) Estimated GFR (Cockcroft-Gault) 113.9 Glucose Level 104 mg/dL (70-99) Calcium Level 9.3 mg/dL (8.5-10.1) Magnesium Level 1.9 mg/dL (1.8-2.4) Total Bilirubin 0.4 mg/dL (0.2-1.0) Direct Bilirubin 0.1 mg/dL (0.0-0.2) Aspartate Amino Transf (AST/SGOT) 26 U/L (15-37) Alanine Aminotransferase (ALT/SGPT) 19 U/L (16-63) Alkaline Phosphatase 44 U/L (46-116) Creatine Kinase 56 U/L (39-308) Creatine Kinase MB (Mass) 2.6 ng/mL (0.0-3.6) Creatine Kinase MB Relative Index % (0-4) Troponin I Quantitative < 0.017 ng/mL (0.000-0.055) LC-Zub-L-Type Natriuretic Peptide 173 pg/mL (0-124) Total Protein 8.3 g/dL (6.4-8.2) Albumin 3.2 g/dL (3.4-5.0) Lipase 166 U/L (73-393) Thyroid Stimulating Hormone (TSH) 5.671 uIU/mL (0.358-3.74) ECHOCARDIOGRAM ECHOCARDIOGRAM <Conclusion> The left ventricular systolic function is normal and the ejection fraction is within normal range. EF 55% There is normal LV segmental wall motion. DATE: 04/03/17 1233 STRESS TEST STRESS TEST Conclusion 1. Baseline abnormal EKG but no EKG evidence of stressed induced ischemia. 2. Nuclear imaging shows no reversible ischemia or infarct. 3. Normal left ventricular systolic function with an ejection fraction of 63%. 4. Low risk Lexiscan nuclear stress test. DATE: 09/18/16 1318 ASSESSMENT/PLAN ASSESSMENT/PLAN 1. Atypical chest pain: troponin series normal. EKG NSR doubt ACS, Likely costochondritis 2. Posttussive vomiting 3. Hx of DAVID cavitary lesions/MAC/PNA: current ethambutol treatment 4. Severe COPD 5. Subclinical hypothyroidism 6. Suspecting GERD Recommendations 1. Discussed with primary nurse school. With multiple admission with CP/SOA will proceed with MPI tomorrow and completely R/O ischemia 2. BP typically at low normal, no BP meds 3. GI consult pending 4. Transdermal lidocaine in place. Problems: ELIZA ALVARADO [employer] Jun 13, 2017 15:06
[2017-06-13] MEDS ORDERED: MORPHINE SULFATE 2 MG/ML DISP.SYRIN. IV PRN (15:45)
[2017-06-13] MEDS ORDERED: ONDANSETRON PF 4 MG/2 ML VIAL. IV PRN (15:45)
--- NOTE | 2017-06-13 16:28 | PDOC2 ---
GI CONSULT Reason For Consult: Chest pain HPI: HPI: 62 y/o male, PMH as below including COPD, MAC, and left cavitary lesion. Just discharged yesterday, lives in a skilled nursing community. Seen in ER w/ pending admission for chest pain. Other notes suggest coughing spells w/ chest pain and vomiting. To me, he reports feeling well until about 10:00 a.m. this morning when n/v began. Also describes upper abd pain w/ chest pain, both better now. Emesis was bilious/green, denies hematemesis. Last vomited this morning, since then has been spitting up sputum. Has had a sore throat for a couple days, sometimes has difficulty swallowing saliva; no dysphagia/ odynophagia. Normal appetite, although didn't eat breakfast this morning because he "doesn't like cold pancakes." Long ago had some indigestion, denies acid reflux/heartburn currently. Apparently has improved w/ PPI in the past ( suggested in other notes). No diarrhea or constipation. No hematochezia or melena. No NSAID use. No previous EGD. Reports normal colonoscopy ~2 years ago [address] [facility] A/P was unrevealing in 2016, along w/ stress test. Small ascites was noted on abd US last year. Cardiology has seen, plans for stress test tomorrow a.m. PMH: PMH: paroxysmal A Fib, NICM, COPD, left apical cavitary lesion, MAC, pneumonia, OA, bronchoscopy, back surgeries, hemorrhoidectomy FH: Family History: Cancer (lung) Social History: Smoke: Quit ALCOHOL: none Drugs: None, Other (past - cocaine and marijuana) ROS: GEN: Denies fevers, chills, sweats HEENT: Denies blurred vision, sore throat CV: +chest pain RESP: +shortness of air, cough GI: Per HPI : Denies hematuria, dysuria ENDO: Denies weight changes NEURO: Denies confusion, dizziness MSK: Denies weakness, joint pain/swelling SKIN: Denies jaundice, pruritus Vitals: Vitals: Vital Signs Date Time Temp Pulse Resp B/P (MAP) Pulse Ox O2 Delivery O2 Flow Rate FiO2 06/13/17 15:35 75 19 98/67 (77) 95 Room Air 06/13/17 11:39 98.0 98.0 Labs: Labs: Laboratory Tests Test 06/13/17 12:15 06/13/17 13:38 06/13/17 14:25 White Blood Count 4.9 x10^3/uL (4.0-11.0) Red Blood Count 4.23 x10^6/uL (4.30-5.70) Hemoglobin 13.5 g/dL (13.0-17.5) Hematocrit 40.4 % (39.0-53.0) Mean Corpuscular Volume 96 fL (79-100) Mean Corpuscular Hemoglobin 32 pg (25-35) Mean Corpuscular Hemoglobin Concent 33 g/dL (31-37) Red Cell Distribution Width 13.8 % (11.5-14.5) Platelet Count 190 x10^3/uL (140-400) Neutrophils (%) (Auto) 66 % (31-73) Lymphocytes (%) (Auto) 18 % (24-48) Monocytes (%) (Auto) 9 % (0-9) Eosinophils (%) (Auto) 7 % (0-3) Basophils (%) (Auto) 0 % (0-3) Neutrophils # (Auto) 3.2 x10^3uL (1.8-7.7) Lymphocytes # (Auto) 0.9 x10^3/uL (1.0-4.8) Monocytes # (Auto) 0.5 x10^3/uL (0.0-1.1) Eosinophils # (Auto) 0.3 x10^3/uL (0.0-0.7) Basophils # (Auto) 0.0 x10^3/uL (0.0-0.2) Prothrombin Time 12.4 SEC (11.7-14.0) Prothromb Time International Ratio 1.0 (0.8-1.1) Sodium Level 138 mmol/L (136-145) Potassium Level 4.0 mmol/L (3.5-5.1) Chloride Level 101 mmol/L (98-107) Carbon Dioxide Level 30 mmol/L (21-32) Anion Gap 7 (6-14) Blood Urea Nitrogen 15 mg/dL (8-26) Creatinine 0.7 mg/dL (0.7-1.3) Estimated GFR (Cockcroft-Gault) 113.9 Glucose Level 104 mg/dL (70-99) Calcium Level 9.3 mg/dL (8.5-10.1) Magnesium Level 1.9 mg/dL (1.8-2.4) Total Bilirubin 0.4 mg/dL (0.2-1.0) Direct Bilirubin 0.1 mg/dL (0.0-0.2) Aspartate Amino Transf (AST/SGOT) 26 U/L (15-37) Alanine Aminotransferase (ALT/SGPT) 19 U/L (16-63) Alkaline Phosphatase 44 U/L (46-116) Creatine Kinase 56 U/L (39-308) 49 U/L (39-308) Creatine Kinase MB (Mass) 2.6 ng/mL (0.0-3.6) 2.4 ng/mL (0.0-3.6) Creatine Kinase MB Relative Index % (0-4) 4.9 % (0-4) Troponin I Quantitative < 0.017 ng/mL (0.000-0.055) < 0.017 ng/mL (0.000-0.055) VA-Bvo-G-Type Natriuretic Peptide 173 pg/mL (0-124) Total Protein 8.3 g/dL (6.4-8.2) Albumin 3.2 g/dL (3.4-5.0) Lipase 166 U/L (73-393) Thyroid Stimulating Hormone (TSH) 5.671 uIU/mL (0.358-3.74) Urine Collection Type Void Urine Color [place] Urine Clarity Clear Urine pH 6.5 Urine Specific [place] 1.025 Urine Protein Negative mg/dL (NEG-TRACE) Urine Glucose (UA) Negative mg/dL (NEG) Urine Ketones (Stick) Negative mg/dL (NEG) Urine Blood Negative (NEG) Urine Nitrite Negative (NEG) Urine Bilirubin Small (NEG) Urine Urobilinogen Dipstick 0.2 mg/dL (0.2 mg/dL) Urine Leukocyte Esterase Small (NEG) Urine RBC 0 /HPF (0-2) Urine WBC Occ /HPF (0-4) Urine Squamous Epithelial Cells Occ /LPF Urine Bacteria 0 /HPF (0-FEW) Urine Mucus Mod /LPF Urine Opiates Screen Pos (NEG) Urine Methadone Screen Neg (NEG) Urine Barbiturates Neg (NEG) Urine Phencyclidine Screen Neg (NEG) Urine Amphetamine/Methamphetamine Neg (NEG) Urine Benzodiazepines Screen Pos (NEG) Urine Cocaine Screen Neg (NEG) Urine Cannabinoids Screen Neg (NEG) Urine Ethyl Alcohol Neg (NEG) Allergies: Coded Allergies: No Known Drug Allergies (Unverified , 02/02/16) Medications: Current Medications Medications (Trade) Dose Ordered Sig/Ken Route PRN Reason Start Time Stop Time Status Last Admin Dose Admin Albuterol/ Ipratropium (Duoneb) 3 ml 1X ONCE NEB 06/13/17 12:30 06/13/17 12:31 DC 06/13/17 12:34 Imaging: Imaging: CXR Findings: Cardiomediastinal silhouette is within normal limits. There is scarring at the left lung apex which appears similar to the prior examination. This volume loss in the left lung. Blunting of the costophrenic angles bilaterally may represent small effusions versus pleural thickening. Right lung is clear. Similar appearance of pleural parenchymal opacities at the left lung base. Emphysematous changes are present. No pneumothorax or pulmonary vascular congestion. Impression: No significant interval change normal in appearance of the chest. PE: GEN: NAD, thin HEENT: Atraumatic, PERRLA LUNGS: tight/diminished anteriorly HEART: RRR, sternal tenderness ABD: NABS, soft, quite tender (asks me to quit) to light palpation epigastrium EXTREMITY: No edema SKIN: No no jaundice NEURO/PSYCH: A & O 3 A/P: A/P: Chest and epigastric pain, vomiting - improved -perhaps precipitated by coughing spells COPD, DAVID cavitary lesion, MAC CRC screen -reports colonoscopy 2 years ago -- Proceed w/ cardiology workup. Start empiric PPI. ANGELLA GUARDADO Jun 13, 2017 16:28
[2017-06-13] MEDS ORDERED: PANTOPRAZOLE 40 MG TABLET.DR. PO ONE (17:00)
[2017-06-13 17:30] VITALS: BP 107/71
[2017-06-13] MEDS ORDERED: ACETAMINOPHEN 325 MG TABLET. PO PRN (17:30)
[2017-06-13] MEDS: ALBUTEROL SULFATE 2.5 MG/3 ML NEBU. NEB PRN ×2 (17:32→23:10)
[2017-06-13 19:00] VITALS: BP 98/62
[2017-06-13] MEDS ORDERED: NON FORMULARY ITEM (Albuterol Sulfate (Albuterol Sulfate Conc Neb Soln) 1 VIAL) NEB SCH (20:00)
[2017-06-13] MEDS: IPRATRPIUM/ALBUTEROL 0.5/2.5MG 3 ML NEBU. NEB SCH (20:07)
[2017-06-13 23:00] VITALS: BP 108/63
[2017-06-13] MEDS: LORazepam 0.5 MG TABLET PO PRN (23:24)
[2017-06-13] MEDS: TEMAZEPAM 15 MG CAPSULE PO SCH (23:24)
[2017-06-13] MEDS: riFAMpin 300 MG CAPSULE. PO SCH (23:24)
[2017-06-13] MEDS: BENZONATATE 100 MG CAPSULE. PO PRN (23:26)
[2017-06-14 03:00] VITALS: BP 90/55
[2017-06-14 05:09] LABS: BASO % 1 % (0-3); EOS % 7 % (0-3); HEMATOCRIT 39.1 % (39.0-53.0); LYMPH % 22 % (24-48); MEAN CORPUSCULAR HEMOGLOBIN 32 pg (25-35); MEAN CORPUSCULAR HGB CONC 33 g/dL (31-37); MEAN CORPUSCULAR VOLUME 95 fL (79-100); MONO % 10 % (0-9); NEUT % 61 % (31-73); PLATELET COUNT 208 x10^3/uL (140-400); RED CELL DISTRIBUTION WIDTH 13.7 % (11.5-14.5); WHITE BLOOD COUNT 4.4 x10^3/uL (4.0-11.0)
[2017-06-14 05:45] LABS: CALCIUM 9.4 mg/dL (8.5-10.1); CREATININE 0.6 mg/dL (0.7-1.3); GFR 136.1; POTASSIUM 3.8 mmol/L (3.5-5.1)
[2017-06-14] MEDS: IPRATRPIUM/ALBUTEROL 0.5/2.5MG 3 ML NEBU. NEB SCH ×4 (05:58→19:10)
[2017-06-14 07:00] VITALS: BP 83/48
[2017-06-14] MEDS ORDERED: REGADENOSON 0.4 MG/5 ML DISP.SYRIN. IV ONE (09:00)
[2017-06-14] MEDS: riFAMpin 300 MG CAPSULE. PO SCH ×2 (10:31→22:57)
[2017-06-14] MEDS: ETHAMBUTOL HCL 400 MG TABLET PO SCH (10:32)
[2017-06-14] MEDS: ESCITALOPRAM 10 MG TABLET. PO SCH (10:32)
[2017-06-14 11:00] VITALS: BP 104/81
--- NOTE | 2017-06-14 11:15 | PDOC1 ---
History and Physical Date of Admission Date of Admission 06/13/17 Identification/Chief Complaint Chief Complaint chest pain Problems: (1) Pulmonary Mycobacterium avium complex (MAC) infection (2) COPD exacerbation (3) Dizziness (4) Cough (5) Respiratory distress (6) Failure to thrive (7) Acute and chronic respiratory failure (8) GERD (gastroesophageal reflux disease) (9) Atypical chest pain Source Source: Patient History of Present Illness History of Present Illness The patient was discharged on 06/12/17 after admission for similar complaint after eating some barbecue and drinking beer GERD was suspected and he was treated with PPI and antacid He was seen by the cloth napping supervisor and we did CT Angio of the chest which did not show pulmonary embolism He was discharged on oral doxycycline He has two episodes of prolongeed spills of coughing each followed by vomiting and chest pain Past Medical History Cardiovascular: Other Pulmonary: COPD, Other CENTRAL NERVOUS SYSTEM: Other GI: No pertinent hx Heme/Onc: No pertinent hx Hepatobiliary: No pertinent hx Psych: Anxiety, Depression Rheumatologic: No pertinent hx Infectious disease: No pertinent hx Renal/: No pertinent hx Endocrine: No pertinent hx Past Surgical History Past Surgical History: Other Family History Family History: Cancer Social History Smoke: No ALCOHOL: occassional Drugs: None, Other (past - cocaine and marijuana) Current Problem List Problem List Atypical chest pain severe COPD Mycobacterium avium complex for which he is on rifampin and ethambutol with DAVID Cavity NICM with improvement of EF from 30% to 65% PAFIB Current Medications Current Medications Current Medications Medications (Trade) Dose Ordered Sig/Ken Start Time Stop Time Status Last Admin Dose Admin Acetaminophen (Tylenol) 650 mg PRN Q4HRS PRN 06/13/17 17:30 Acetaminophen/ Hydrocodone Bitart (Lortab 5/325) 1 tab Q4HRS PRN 06/13/17 17:30 Albuterol Sulfate (Ventolin Neb Soln) 2.5 mg PRN Q4HRS PRN 06/13/17 17:30 06/13/17 23:10 2.5 MG Albuterol/ Ipratropium (Duoneb) 3 ml RTQID 06/13/17 20:00 06/14/17 05:58 3 ML Benzonatate (Tessalon Perle) 100 mg TID PRN 06/13/17 17:30 06/13/17 23:26 100 MG Escitalopram Oxalate (Lexapro) 10 mg DAILY 06/14/17 09:00 06/14/17 10:32 10 MG Ethambutol HCl (Myambutol) 800 mg DAILY 06/14/17 09:00 06/14/17 10:32 800 MG Lorazepam (Ativan) 0.5 mg PRN Q4HRS PRN 06/13/17 19:30 06/13/17 23:24 0.5 MG Morphine Sulfate 2 mg PRN Q2HR PRN 06/13/17 15:45 06/14/17 15:44 Non-Formulary Medication 1 vial Q4HRS 06/13/17 20:00 UNV Ondansetron HCl (Zofran) 4 mg PRN Q8HRS PRN 06/13/17 15:45 06/14/17 15:44 Pantoprazole Sodium (Protonix) 40 mg 1X ONCE 06/13/17 17:00 06/13/17 17:01 DC 06/13/17 18:35 40 MG Regadenoson (Lexiscan) 0.4 mg 1X ONCE 06/14/17 09:00 06/14/17 09:01 DC 06/14/17 10:21 0.4 MG Rifampin (Rifadin) 300 mg BID 06/13/17 21:00 06/14/17 10:31 300 MG Temazepam (Restoril) 15 mg HS 06/13/17 21:00 06/13/17 23:24 15 MG Allergies Allergies Allergies Coded Allergies Type Severity Reaction Last Updated Verified No Known Drug Allergies 02/02/16 No ROS Review of System CONSTITUTIONAL: No fever or chills EYES: No recent changes SKIN: No rash or itching CARDIOVASCULAR: No chest pain, syncope, palpitations, or edema RESPIRATORY: No SOB or cough GASTROINTESTINAL: No nausea, vomiting or abdominal pain NEUROLOGICAL: No headaches or weakness ENDOCRINE: No cold or heat intolerance GENITOURINARY: No urgency or frequency of urination MUSCULOSKELETAL: No back pain or joint pain LYMPHATICS: No enlarged lymph nodes PSYCHIATRIC: No anxiety or depression Physical Exam Physical Exam GEN.: No apparent distress. Alert and oriented. HEENT: Head is normocephalic, atraumatic NECK: Supple. LUNGS: Clear to auscultation. HEART: RRR, S1, S2 present. Peripheral pulses intact ABDOMEN: Soft, nontender. Positive bowel sounds. EXTREMITIES: Without any cyanosis. NEUROLOGIC: Normal speech, normal tone PSYCHIATRIC: Normal affect, normal mood. SKIN: No ulcerations Vitals Vitals Vital Signs Date Time Temp Pulse Resp B/P (MAP) Pulse Ox O2 Delivery O2 Flow Rate FiO2 06/14/17 07:00 97.5 99 20 83/48 (60) 93 Room Air 97.5 Labs Labs Laboratory Tests Test 06/13/17 12:15 06/13/17 13:38 06/13/17 14:25 06/13/17 21:21 White Blood Count 4.9 x10^3/uL (4.0-11.0) Red Blood Count 4.23 x10^6/uL (4.30-5.70) Hemoglobin 13.5 g/dL (13.0-17.5) Hematocrit 40.4 % (39.0-53.0) Mean Corpuscular Volume 96 fL (79-100) Mean Corpuscular Hemoglobin 32 pg (25-35) Mean Corpuscular Hemoglobin Concent 33 g/dL (31-37) Red Cell Distribution Width 13.8 % (11.5-14.5) Platelet Count 190 x10^3/uL (140-400) Neutrophils (%) (Auto) 66 % (31-73) Lymphocytes (%) (Auto) 18 % (24-48) Monocytes (%) (Auto) 9 % (0-9) Eosinophils (%) (Auto) 7 % (0-3) Basophils (%) (Auto) 0 % (0-3) Neutrophils # (Auto) 3.2 x10^3uL (1.8-7.7) Lymphocytes # (Auto) 0.9 x10^3/uL (1.0-4.8) Monocytes # (Auto) 0.5 x10^3/uL (0.0-1.1) Eosinophils # (Auto) 0.3 x10^3/uL (0.0-0.7) Basophils # (Auto) 0.0 x10^3/uL (0.0-0.2) Prothrombin Time 12.4 SEC (11.7-14.0) Prothromb Time International Ratio 1.0 (0.8-1.1) Sodium Level 138 mmol/L (136-145) Potassium Level 4.0 mmol/L (3.5-5.1) Chloride Level 101 mmol/L (98-107) Carbon Dioxide Level 30 mmol/L (21-32) Anion Gap 7 (6-14) Blood Urea Nitrogen 15 mg/dL (8-26) Creatinine 0.7 mg/dL (0.7-1.3) Estimated GFR (Cockcroft-Gault) 113.9 Glucose Level 104 mg/dL (70-99) Calcium Level 9.3 mg/dL (8.5-10.1) Magnesium Level 1.9 mg/dL (1.8-2.4) Total Bilirubin 0.4 mg/dL (0.2-1.0) Direct Bilirubin 0.1 mg/dL (0.0-0.2) Aspartate Amino Transf (AST/SGOT) 26 U/L (15-37) Alanine Aminotransferase (ALT/SGPT) 19 U/L (16-63) Alkaline Phosphatase 44 U/L (46-116) Creatine Kinase 56 U/L (39-308) 49 U/L (39-308) Creatine Kinase MB (Mass) 2.6 ng/mL (0.0-3.6) 2.4 ng/mL (0.0-3.6) Creatine Kinase MB Relative Index % (0-4) 4.9 % (0-4) Troponin I Quantitative < 0.017 ng/mL (0.000-0.055) < 0.017 ng/mL (0.000-0.055) < 0.017 ng/mL (0.000-0.055) VP-Bex-Y-Type Natriuretic Peptide 173 pg/mL (0-124) Total Protein 8.3 g/dL (6.4-8.2) Albumin 3.2 g/dL (3.4-5.0) Lipase 166 U/L (73-393) Thyroid Stimulating Hormone (TSH) 5.671 uIU/mL (0.358-3.74) Urine Collection Type Void Urine Color [place] Urine Clarity Clear Urine pH 6.5 Urine Specific Beauty 1.025 Urine Protein Negative mg/dL (NEG-TRACE) Urine Glucose (UA) Negative mg/dL (NEG) Urine Ketones (Stick) Negative mg/dL (NEG) Urine Blood Negative (NEG) Urine Nitrite Negative (NEG) Urine Bilirubin Small (NEG) Urine Urobilinogen Dipstick 0.2 mg/dL (0.2 mg/dL) Urine Leukocyte Esterase Small (NEG) Urine RBC 0 /HPF (0-2) Urine WBC Occ /HPF (0-4) Urine Squamous Epithelial Cells Occ /LPF Urine Bacteria 0 /HPF (0-FEW) Urine Mucus Mod /LPF Urine Opiates Screen Pos (NEG) Urine Methadone Screen Neg (NEG) Urine Barbiturates Neg (NEG) Urine Phencyclidine Screen Neg (NEG) Urine Amphetamine/Methamphetamine Neg (NEG) Urine Benzodiazepines Screen Pos (NEG) Urine Cocaine Screen Neg (NEG) Urine Cannabinoids Screen Neg (NEG) Urine Ethyl Alcohol Neg (NEG) Test 06/14/17 02:55 06/14/17 03:45 White Blood Count 4.4 x10^3/uL (4.0-11.0) Red Blood Count 4.10 x10^6/uL (4.30-5.70) Hemoglobin 13.0 g/dL (13.0-17.5) Hematocrit 39.1 % (39.0-53.0) Mean Corpuscular Volume 95 fL (79-100) Mean Corpuscular Hemoglobin 32 pg (25-35) Mean Corpuscular Hemoglobin Concent 33 g/dL (31-37) Red Cell Distribution Width 13.7 % (11.5-14.5) Platelet Count 208 x10^3/uL (140-400) Neutrophils (%) (Auto) 61 % (31-73) Lymphocytes (%) (Auto) 22 % (24-48) Monocytes (%) (Auto) 10 % (0-9) Eosinophils (%) (Auto) 7 % (0-3) Basophils (%) (Auto) 1 % (0-3) Neutrophils # (Auto) 2.7 x10^3uL (1.8-7.7) Lymphocytes # (Auto) 1.0 x10^3/uL (1.0-4.8) Monocytes # (Auto) 0.4 x10^3/uL (0.0-1.1) Eosinophils # (Auto) 0.3 x10^3/uL (0.0-0.7) Basophils # (Auto) 0.0 x10^3/uL (0.0-0.2) Sodium Level 140 mmol/L (136-145) Potassium Level 3.8 mmol/L (3.5-5.1) Chloride Level 102 mmol/L (98-107) Carbon Dioxide Level 31 mmol/L (21-32) Anion Gap 7 (6-14) Blood Urea Nitrogen 16 mg/dL (8-26) Creatinine 0.6 mg/dL (0.7-1.3) Estimated GFR (Cockcroft-Gault) 136.1 Glucose Level 97 mg/dL (70-99) Calcium Level 9.4 mg/dL (8.5-10.1) Troponin I Quantitative < 0.017 ng/mL (0.000-0.055) Laboratory Tests Test 06/13/17 12:15 06/13/17 13:38 06/13/17 14:25 06/13/17 21:21 White Blood Count 4.9 x10^3/uL (4.0-11.0) Red Blood Count 4.23 x10^6/uL (4.30-5.70) Hemoglobin 13.5 g/dL (13.0-17.5) Hematocrit 40.4 % (39.0-53.0) Mean Corpuscular Volume 96 fL (79-100) Mean Corpuscular Hemoglobin 32 pg (25-35) Mean Corpuscular Hemoglobin Concent 33 g/dL (31-37) Red Cell Distribution Width 13.8 % (11.5-14.5) Platelet Count 190 x10^3/uL (140-400) Neutrophils (%) (Auto) 66 % (31-73) Lymphocytes (%) (Auto) 18 % (24-48) Monocytes (%) (Auto) 9 % (0-9) Eosinophils (%) (Auto) 7 % (0-3) Basophils (%) (Auto) 0 % (0-3) Neutrophils # (Auto) 3.2 x10^3uL (1.8-7.7) Lymphocytes # (Auto) 0.9 x10^3/uL (1.0-4.8) Monocytes # (Auto) 0.5 x10^3/uL (0.0-1.1) Eosinophils # (Auto) 0.3 x10^3/uL (0.0-0.7) Basophils # (Auto) 0.0 x10^3/uL (0.0-0.2) Prothrombin Time 12.4 SEC (11.7-14.0) Prothromb Time International Ratio 1.0 (0.8-1.1) Sodium Level 138 mmol/L (136-145) Potassium Level 4.0 mmol/L (3.5-5.1) Chloride Level 101 mmol/L (98-107) Carbon Dioxide Level 30 mmol/L (21-32) Anion Gap 7 (6-14) Blood Urea Nitrogen 15 mg/dL (8-26) Creatinine 0.7 mg/dL (0.7-1.3) Estimated GFR (Cockcroft-Gault) 113.9 Glucose Level 104 mg/dL (70-99) Calcium Level 9.3 mg/dL (8.5-10.1) Magnesium Level 1.9 mg/dL (1.8-2.4) Total Bilirubin 0.4 mg/dL (0.2-1.0) Direct Bilirubin 0.1 mg/dL (0.0-0.2) Aspartate Amino Transf (AST/SGOT) 26 U/L (15-37) Alanine Aminotransferase (ALT/SGPT) 19 U/L (16-63) Alkaline Phosphatase 44 U/L (46-116) Creatine Kinase 56 U/L (39-308) 49 U/L (39-308) Creatine Kinase MB (Mass) 2.6 ng/mL (0.0-3.6) 2.4 ng/mL (0.0-3.6) Creatine Kinase MB Relative Index % (0-4) 4.9 % (0-4) Troponin I Quantitative < 0.017 ng/mL (0.000-0.055) < 0.017 ng/mL (0.000-0.055) < 0.017 ng/mL (0.000-0.055) IR-Jsi-V-Type Natriuretic Peptide 173 pg/mL (0-124) Total Protein 8.3 g/dL (6.4-8.2) Albumin 3.2 g/dL (3.4-5.0) Lipase 166 U/L (73-393) Thyroid Stimulating Hormone (TSH) 5.671 uIU/mL (0.358-3.74) Urine Collection Type Void Urine Color [place] Urine Clarity Clear Urine pH 6.5 Urine Specific Beauty 1.025 Urine Protein Negative mg/dL (NEG-TRACE) Urine Glucose (UA) Negative mg/dL (NEG) Urine Ketones (Stick) Negative mg/dL (NEG) Urine Blood Negative (NEG) Urine Nitrite Negative (NEG) Urine Bilirubin Small (NEG) Urine Urobilinogen Dipstick 0.2 mg/dL (0.2 mg/dL) Urine Leukocyte Esterase Small (NEG) Urine RBC 0 /HPF (0-2) Urine WBC Occ /HPF (0-4) Urine Squamous Epithelial Cells Occ /LPF Urine Bacteria 0 /HPF (0-FEW) Urine Mucus Mod /LPF Urine Opiates Screen Pos (NEG) Urine Methadone Screen Neg (NEG) Urine Barbiturates Neg (NEG) Urine Phencyclidine Screen Neg (NEG) Urine Amphetamine/Methamphetamine Neg (NEG) Urine Benzodiazepines Screen Pos (NEG) Urine Cocaine Screen Neg (NEG) Urine Cannabinoids Screen Neg (NEG) Urine Ethyl Alcohol Neg (NEG) Test 06/14/17 02:55 06/14/17 03:45 White Blood Count 4.4 x10^3/uL (4.0-11.0) Red Blood Count 4.10 x10^6/uL (4.30-5.70) Hemoglobin 13.0 g/dL (13.0-17.5) Hematocrit 39.1 % (39.0-53.0) Mean Corpuscular Volume 95 fL (79-100) Mean Corpuscular Hemoglobin 32 pg (25-35) Mean Corpuscular Hemoglobin Concent 33 g/dL (31-37) Red Cell Distribution Width 13.7 % (11.5-14.5) Platelet Count 208 x10^3/uL (140-400) Neutrophils (%) (Auto) 61 % (31-73) Lymphocytes (%) (Auto) 22 % (24-48) Monocytes (%) (Auto) 10 % (0-9) Eosinophils (%) (Auto) 7 % (0-3) Basophils (%) (Auto) 1 % (0-3) Neutrophils # (Auto) 2.7 x10^3uL (1.8-7.7) Lymphocytes # (Auto) 1.0 x10^3/uL (1.0-4.8) Monocytes # (Auto) 0.4 x10^3/uL (0.0-1.1) Eosinophils # (Auto) 0.3 x10^3/uL (0.0-0.7) Basophils # (Auto) 0.0 x10^3/uL (0.0-0.2) Sodium Level 140 mmol/L (136-145) Potassium Level 3.8 mmol/L (3.5-5.1) Chloride Level 102 mmol/L (98-107) Carbon Dioxide Level 31 mmol/L (21-32) Anion Gap 7 (6-14) Blood Urea Nitrogen 16 mg/dL (8-26) Creatinine 0.6 mg/dL (0.7-1.3) Estimated GFR (Cockcroft-Gault) 136.1 Glucose Level 97 mg/dL (70-99) Calcium Level 9.4 mg/dL (8.5-10.1) Troponin I Quantitative < 0.017 ng/mL (0.000-0.055) VTE Prophylaxis Ordered VTE Prophylaxis Devices: Yes VTE Pharmacological Prophylaxi: Yes MANI MCHUGH MD Jun 14, 2017 11:15
--- NOTE | 2017-06-14 11:24 | PN ---
PROGRESS NOTES Subjective Subjective setting on the edge of the bed , Continue to have recurrent bouts of mostly dry hacking cough He has just arrived from his nuclear stress test the outcome of which is still pending so far all his cardiac enzymes are negative Objective Objective Vital Signs Date Time Temp Pulse Resp B/P (MAP) Pulse Ox O2 Delivery O2 Flow Rate FiO2 06/14/17 07:00 97.5 99 20 83/48 (60) 93 Room Air 97.5 Intake and Output 06/14/17 07:00 Output Total 0 ml Balance 0 ml Output Urine Total 0 ml # Voids 1 Physical Exam Physical Exam setting on the edge of the bed with tripod posture using his accessory muscle Continues to have recurrent bout of cough that are distressing Vitals are stable chest reduced shest expansion and air entry scattered wheezing COMMENT The patient was seen by the cardiology team and has had a nuclear stress test He was seen by the GI Team I wonder whether doxycycline might causing pill induced esophagits Diagnosis DIAGNOSIS Atypical chest pain Severe COPD NICM with negative stress testing last year PAFIB LULcavity due to M I COMPLEX PROBLEM LIST ABOVE Assessment Assessment Await the outcome of the stress test continue with PPI and antacids Plan Plan of Care The patient might need EGD to rt/o severe esophagitis as he is on Doxycycline Comment Labs Laboratory Tests Test 06/13/17 12:15 06/13/17 13:38 06/13/17 14:25 06/13/17 21:21 White Blood Count 4.9 x10^3/uL (4.0-11.0) Red Blood Count 4.23 x10^6/uL (4.30-5.70) Hemoglobin 13.5 g/dL (13.0-17.5) Hematocrit 40.4 % (39.0-53.0) Mean Corpuscular Volume 96 fL (79-100) Mean Corpuscular Hemoglobin 32 pg (25-35) Mean Corpuscular Hemoglobin Concent 33 g/dL (31-37) Red Cell Distribution Width 13.8 % (11.5-14.5) Platelet Count 190 x10^3/uL (140-400) Neutrophils (%) (Auto) 66 % (31-73) Lymphocytes (%) (Auto) 18 % (24-48) Monocytes (%) (Auto) 9 % (0-9) Eosinophils (%) (Auto) 7 % (0-3) Basophils (%) (Auto) 0 % (0-3) Neutrophils # (Auto) 3.2 x10^3uL (1.8-7.7) Lymphocytes # (Auto) 0.9 x10^3/uL (1.0-4.8) Monocytes # (Auto) 0.5 x10^3/uL (0.0-1.1) Eosinophils # (Auto) 0.3 x10^3/uL (0.0-0.7) Basophils # (Auto) 0.0 x10^3/uL (0.0-0.2) Prothrombin Time 12.4 SEC (11.7-14.0) Prothromb Time International Ratio 1.0 (0.8-1.1) Sodium Level 138 mmol/L (136-145) Potassium Level 4.0 mmol/L (3.5-5.1) Chloride Level 101 mmol/L (98-107) Carbon Dioxide Level 30 mmol/L (21-32) Anion Gap 7 (6-14) Blood Urea Nitrogen 15 mg/dL (8-26) Creatinine 0.7 mg/dL (0.7-1.3) Estimated GFR (Cockcroft-Gault) 113.9 Glucose Level 104 mg/dL (70-99) Calcium Level 9.3 mg/dL (8.5-10.1) Magnesium Level 1.9 mg/dL (1.8-2.4) Total Bilirubin 0.4 mg/dL (0.2-1.0) Direct Bilirubin 0.1 mg/dL (0.0-0.2) Aspartate Amino Transf (AST/SGOT) 26 U/L (15-37) Alanine Aminotransferase (ALT/SGPT) 19 U/L (16-63) Alkaline Phosphatase 44 U/L (46-116) Creatine Kinase 56 U/L (39-308) 49 U/L (39-308) Creatine Kinase MB (Mass) 2.6 ng/mL (0.0-3.6) 2.4 ng/mL (0.0-3.6) Creatine Kinase MB Relative Index % (0-4) 4.9 % (0-4) Troponin I Quantitative < 0.017 ng/mL (0.000-0.055) < 0.017 ng/mL (0.000-0.055) < 0.017 ng/mL (0.000-0.055) CR-[id number]-[id number]-Type Natriuretic Peptide 173 pg/mL (0-124) Total Protein 8.3 g/dL (6.4-8.2) Albumin 3.2 g/dL (3.4-5.0) Lipase 166 U/L (73-393) Thyroid Stimulating Hormone (TSH) 5.671 uIU/mL (0.358-3.74) Urine Collection Type Void Urine Color [place] Urine Clarity Clear Urine pH 6.5 Urine Specific [place] 1.025 Urine Protein Negative mg/dL (NEG-TRACE) Urine Glucose (UA) Negative mg/dL (NEG) Urine Ketones (Stick) Negative mg/dL (NEG) Urine Blood Negative (NEG) Urine Nitrite Negative (NEG) Urine Bilirubin Small (NEG) Urine Urobilinogen Dipstick 0.2 mg/dL (0.2 mg/dL) Urine Leukocyte Esterase Small (NEG) Urine RBC 0 /HPF (0-2) Urine WBC Occ /HPF (0-4) Urine Squamous Epithelial Cells Occ /LPF Urine Bacteria 0 /HPF (0-FEW) Urine Mucus Mod /LPF Urine Opiates Screen Pos (NEG) Urine Methadone Screen Neg (NEG) Urine Barbiturates Neg (NEG) Urine Phencyclidine Screen Neg (NEG) Urine Amphetamine/Methamphetamine Neg (NEG) Urine Benzodiazepines Screen Pos (NEG) Urine Cocaine Screen Neg (NEG) Urine Cannabinoids Screen Neg (NEG) Urine Ethyl Alcohol Neg (NEG) Test 06/14/17 02:55 06/14/17 03:45 White Blood Count 4.4 x10^3/uL (4.0-11.0) Red Blood Count 4.10 x10^6/uL (4.30-5.70) Hemoglobin 13.0 g/dL (13.0-17.5) Hematocrit 39.1 % (39.0-53.0) Mean Corpuscular Volume 95 fL (79-100) Mean Corpuscular Hemoglobin 32 pg (25-35) Mean Corpuscular Hemoglobin Concent 33 g/dL (31-37) Red Cell Distribution Width 13.7 % (11.5-14.5) Platelet Count 208 x10^3/uL (140-400) Neutrophils (%) (Auto) 61 % (31-73) Lymphocytes (%) (Auto) 22 % (24-48) Monocytes (%) (Auto) 10 % (0-9) Eosinophils (%) (Auto) 7 % (0-3) Basophils (%) (Auto) 1 % (0-3) Neutrophils # (Auto) 2.7 x10^3uL (1.8-7.7) Lymphocytes # (Auto) 1.0 x10^3/uL (1.0-4.8) Monocytes # (Auto) 0.4 x10^3/uL (0.0-1.1) Eosinophils # (Auto) 0.3 x10^3/uL (0.0-0.7) Basophils # (Auto) 0.0 x10^3/uL (0.0-0.2) Sodium Level 140 mmol/L (136-145) Potassium Level 3.8 mmol/L (3.5-5.1) Chloride Level 102 mmol/L (98-107) Carbon Dioxide Level 31 mmol/L (21-32) Anion Gap 7 (6-14) Blood Urea Nitrogen 16 mg/dL (8-26) Creatinine 0.6 mg/dL (0.7-1.3) Estimated GFR (Cockcroft-Gault) 136.1 Glucose Level 97 mg/dL (70-99) Calcium Level 9.4 mg/dL (8.5-10.1) Troponin I Quantitative < 0.017 ng/mL (0.000-0.055) Laboratory Tests Test 06/13/17 12:15 06/13/17 13:38 06/13/17 14:25 06/13/17 21:21 White Blood Count 4.9 x10^3/uL (4.0-11.0) Red Blood Count 4.23 x10^6/uL (4.30-5.70) Hemoglobin 13.5 g/dL (13.0-17.5) Hematocrit 40.4 % (39.0-53.0) Mean Corpuscular Volume 96 fL (79-100) Mean Corpuscular Hemoglobin 32 pg (25-35) Mean Corpuscular Hemoglobin Concent 33 g/dL (31-37) Red Cell Distribution Width 13.8 % (11.5-14.5) Platelet Count 190 x10^3/uL (140-400) Neutrophils (%) (Auto) 66 % (31-73) Lymphocytes (%) (Auto) 18 % (24-48) Monocytes (%) (Auto) 9 % (0-9) Eosinophils (%) (Auto) 7 % (0-3) Basophils (%) (Auto) 0 % (0-3) Neutrophils # (Auto) 3.2 x10^3uL (1.8-7.7) Lymphocytes # (Auto) 0.9 x10^3/uL (1.0-4.8) Monocytes # (Auto) 0.5 x10^3/uL (0.0-1.1) Eosinophils # (Auto) 0.3 x10^3/uL (0.0-0.7) Basophils # (Auto) 0.0 x10^3/uL (0.0-0.2) Prothrombin Time 12.4 SEC (11.7-14.0) Prothromb Time International Ratio 1.0 (0.8-1.1) Sodium Level 138 mmol/L (136-145) Potassium Level 4.0 mmol/L (3.5-5.1) Chloride Level 101 mmol/L (98-107) Carbon Dioxide Level 30 mmol/L (21-32) Anion Gap 7 (6-14) Blood Urea Nitrogen 15 mg/dL (8-26) Creatinine 0.7 mg/dL (0.7-1.3) Estimated GFR (Cockcroft-Gault) 113.9 Glucose Level 104 mg/dL (70-99) Calcium Level 9.3 mg/dL (8.5-10.1) Magnesium Level 1.9 mg/dL (1.8-2.4) Total Bilirubin 0.4 mg/dL (0.2-1.0) Direct Bilirubin 0.1 mg/dL (0.0-0.2) Aspartate Amino Transf (AST/SGOT) 26 U/L (15-37) Alanine Aminotransferase (ALT/SGPT) 19 U/L (16-63) Alkaline Phosphatase 44 U/L (46-116) Creatine Kinase 56 U/L (39-308) 49 U/L (39-308) Creatine Kinase MB (Mass) 2.6 ng/mL (0.0-3.6) 2.4 ng/mL (0.0-3.6) Creatine Kinase MB Relative Index % (0-4) 4.9 % (0-4) Troponin I Quantitative < 0.017 ng/mL (0.000-0.055) < 0.017 ng/mL (0.000-0.055) < 0.017 ng/mL (0.000-0.055) [id number]-Type Natriuretic Peptide 173 pg/mL (0-124) Total Protein 8.3 g/dL (6.4-8.2) Albumin 3.2 g/dL (3.4-5.0) Lipase 166 U/L (73-393) Thyroid Stimulating Hormone (TSH) 5.671 uIU/mL (0.358-3.74) Urine Collection Type Void Urine Color [place] Urine Clarity Clear Urine pH 6.5 Urine Specific [place] 1.025 Urine Protein Negative mg/dL (NEG-TRACE) Urine Glucose (UA) Negative mg/dL (NEG) Urine Ketones (Stick) Negative mg/dL (NEG) Urine Blood Negative (NEG) Urine Nitrite Negative (NEG) Urine Bilirubin Small (NEG) Urine Urobilinogen Dipstick 0.2 mg/dL (0.2 mg/dL) Urine Leukocyte Esterase Small (NEG) Urine RBC 0 /HPF (0-2) Urine WBC Occ /HPF (0-4) Urine Squamous Epithelial Cells Occ /LPF Urine Bacteria 0 /HPF (0-FEW) Urine Mucus Mod /LPF Urine Opiates Screen Pos (NEG) Urine Methadone Screen Neg (NEG) Urine Barbiturates Neg (NEG) Urine Phencyclidine Screen Neg (NEG) Urine Amphetamine/Methamphetamine Neg (NEG) Urine Benzodiazepines Screen Pos (NEG) Urine Cocaine Screen Neg (NEG) Urine Cannabinoids Screen Neg (NEG) Urine Ethyl Alcohol Neg (NEG) Test 06/14/17 02:55 06/14/17 03:45 White Blood Count 4.4 x10^3/uL (4.0-11.0) Red Blood Count 4.10 x10^6/uL (4.30-5.70) Hemoglobin 13.0 g/dL (13.0-17.5) Hematocrit 39.1 % (39.0-53.0) Mean Corpuscular Volume 95 fL (79-100) Mean Corpuscular Hemoglobin 32 pg (25-35) Mean Corpuscular Hemoglobin Concent 33 g/dL (31-37) Red Cell Distribution Width 13.7 % (11.5-14.5) Platelet Count 208 x10^3/uL (140-400) Neutrophils (%) (Auto) 61 % (31-73) Lymphocytes (%) (Auto) 22 % (24-48) Monocytes (%) (Auto) 10 % (0-9) Eosinophils (%) (Auto) 7 % (0-3) Basophils (%) (Auto) 1 % (0-3) Neutrophils # (Auto) 2.7 x10^3uL (1.8-7.7) Lymphocytes # (Auto) 1.0 x10^3/uL (1.0-4.8) Monocytes # (Auto) 0.4 x10^3/uL (0.0-1.1) Eosinophils # (Auto) 0.3 x10^3/uL (0.0-0.7) Basophils # (Auto) 0.0 x10^3/uL (0.0-0.2) Sodium Level 140 mmol/L (136-145) Potassium Level 3.8 mmol/L (3.5-5.1) Chloride Level 102 mmol/L (98-107) Carbon Dioxide Level 31 mmol/L (21-32) Anion Gap 7 (6-14) Blood Urea Nitrogen 16 mg/dL (8-26) Creatinine 0.6 mg/dL (0.7-1.3) Estimated GFR (Cockcroft-Gault) 136.1 Glucose Level 97 mg/dL (70-99) Calcium Level 9.4 mg/dL (8.5-10.1) Troponin I Quantitative < 0.017 ng/mL (0.000-0.055) Medications Current Medications Albuterol/ Ipratropium (Duoneb) 3 ml 1X ONCE NEB Last administered on t 12:34; Admin Dose 3 ML; Start 06/13/17 at 12:30; Stop 06/13/17 at 12:31; Status DC Ondansetron HCl (Zofran) 4 mg PRN Q8HRS PRN IV NAUSEA/VOMITING; Start 06/13/17 at 15:45; Stop 06/14/17 at 15:44 Morphine Sulfate 2 mg PRN Q2HR PRN IV PAIN; Start 06/13/17 at 15:45; Stop 06/14 at 15:44 Pantoprazole Sodium (Protonix) 40 mg 1X ONCE PO Last administered on 18:35; Admin Dose 40 MG; Start 06/13/17 at 17:00; Stop 06/13/17 at 17:01; Status DC Acetaminophen (Tylenol) 650 mg PRN Q4HRS PRN PO MILD PAIN/FEVER; Start at 17:30 Benzonatate (Tessalon Perle) 100 mg TID PRN PO COUGH Last administered on 23:26; Admin Dose 100 MG; Start 06/13/17 at 17:30 Ethambutol HCl (Myambutol) 800 mg DAILY PO Last administered on 06/14/17 10:32 ; Admin Dose 800 MG; Start 06/14/17 at 09:00 Acetaminophen/ Hydrocodone Bitart (Lortab 5/325) 1 tab Q4HRS PRN PO PAIN; Start 06/13/17 at 17:30 Albuterol/ Ipratropium (Duoneb) 3 ml RTQID NEB Last administered on 06/14/17 05:58; Admin Dose 3 ML; Start 06/13/17 at 20:00 Rifampin (Rifadin) 300 mg BID PO Last administered on 06/14/17 10:31; Admin Dose 300 MG; Start 06/13/17 at 21:00 Temazepam (Restoril) 15 mg HS PO Last administered on 06/13/17 23:24; Admin Dose 15 MG; Start 06/13/17 at 21:00 Non-Formulary Medication 1 vial Q4HRS NEB ; Start 06/13/17 at 20:00; Status UNV Albuterol Sulfate (Ventolin Neb Soln) 2.5 mg PRN Q4HRS PRN NEB SHORTNESS OF BREATH Last administered on 06/13/17 23:10; Admin Dose 2.5 MG; Start 06/13/17 at 17:30 Escitalopram Oxalate (Lexapro) 10 mg DAILY PO Last administered on 06/14/17 10 :32; Admin Dose 10 MG; Start 06/14/17 at 09:00 Lorazepam (Ativan) 0.5 mg PRN Q4HRS PRN PO ANXIETY / AGITATION Last administered on 06/13/17 23:24; Admin Dose 0.5 MG; Start 06/13/17 at 19:30 Regadenoson (Lexiscan) 0.4 mg 1X ONCE IV Last administered on 06/14/17 10:21 ; Admin Dose 0.4 MG; Start 06/14/17 at 09:00; Stop 06/14/17 at 09:01; Status DC Active Scripts Active Hydrocodone-Apap 5-325 (Hydrocodone Bit/Acetaminophen) 1 Each Tablet 1 Tab PO PRN Q4H PRN 30 Days Tessalon Perle (Benzonatate) 100 Mg Capsule 100 Mg PO TID PRN Reported Tylenol (Acetaminophen) 325 Mg Tablet 2 Tab PO PRN Q4HRS Albuterol Sulfate Conc Neb Soln (Albuterol Sulfate) 2.5 Mg/0.5 Ml Vial.neb 1 Vial NEB Q4HRS Proair Hfa Inhaler (Albuterol Sulfate) 8.5 Gm Hfa.aer.ad 1 Puff INH PRN Q4HRS PRN Duoneb 0.5-3(2.5) Mg/3 Ml (Albuterol/Ipratropium) 3 Ml Ampul.neb 3 Ml NEB QID Ethambutol Hcl 400 Mg Tablet 800 Mg DAILY Rifampin 300 Mg Capsule 300 Mg BID Escitalopram Oxalate 10 Mg Tablet 10 Mg DAILY Temazepam 15 Mg Capsule 1 Cap HS Vitals/I & O Vital Sign - Last 24 Hours 06/13/17 06/13/17 06/13/17 06/13/17 11:35 11:39 12:05 12:35 Temp 98.0 98.0 Pulse 84 80 78 Resp 28 28 24 22 B/P (MAP) 100/74 (83) 100/74 (83) 87/66 (73) 97/71 (80) Pulse Ox 96 95 94 94 O2 Delivery Room Air Room Air Room Air Room Air 06/13/17 06/13/17 06/13/17 06/13/17 12:37 13:05 13:35 14:05 Pulse 79 74 76 Resp 21 20 21 B/P (MAP) 105/70 (82) 101/63 (76) 92/68 (76) Pulse Ox 94 94 94 95 O2 Delivery Room Air Room Air Room Air Room Air 06/13/17 06/13/17 06/13/17 06/13/17 14:35 15:35 17:30 17:30 Temp 98.1 98.1 98.1 98.1 Pulse 80 75 75 75 Resp 18 19 22 22 B/P (MAP) 102/67 (79) 98/67 (77) 107/71 (83) 107/71 (83) Pulse Ox 95 95 94 94 O2 Delivery Room Air Room Air Room Air Room Air 06/13/17 06/13/17 06/13/17 06/13/17 17:33 17:56 19:00 20:00 Temp 97.9 97.9 Pulse 81 Resp 16 B/P (MAP) 98/62 (74) Pulse Ox 94 95 O2 Delivery Room Air Room Air Room Air Room Air 06/13/17 06/13/17 06/13/17 06/14/17 20:08 23:00 23:10 03:00 Temp 97.9 97.9 97.9 97.9 Pulse 86 72 Resp 18 16 B/P (MAP) 108/63 (78) 90/55 (67) Pulse Ox 95 99 97 O2 Delivery Room Air Room Air Room Air 06/14/17 06/14/17 05:58 07:00 Temp 97.5 97.5 Pulse 99 Resp 20 B/P (MAP) 83/48 (60) Pulse Ox 96 93 O2 Delivery Room Air Room Air Intake and Output 06/13/17 06/13/17 06/14/17 15:00 23:00 07:00 Output Total 0 ml Balance 0 ml MANI MCHUGH MD Jun 14, 2017 11:24
[2017-06-14 15:00] VITALS: BP 93/60
--- NOTE | 2017-06-14 15:51 | PDOC ---
PROGRESS NOTES Subjective Subjective The patient is feeling better today. Objective Objective Vital Signs Date Time Temp Pulse Resp B/P (MAP) Pulse Ox O2 Delivery O2 Flow Rate FiO2 06/14/17 15:00 97.8 80 20 93/60 (71) 92 Room Air 97.8 Intake and Output 06/14/17 07:00 Output Total 0 ml Balance 0 ml Output Urine Total 0 ml # Voids 1 Physical Exam Abdomen: Normal bowel sounds Heart: Regular rate General: No acute distress Lungs: Clear to auscultation Assessment Assessment 1. Atypical chest pain: troponin series normal. EKG NSR doubt ACS, Likely costochondritis. MPI testing today. 2. Posttussive vomiting. Improved. 3. Hx of DAVID cavitary lesions/MAC/PNA: current ethambutol treatment 4. Severe COPD 5. Subclinical hypothyroidism 6. Suspecting GERD Comment Review of Relevant I have reviewed the following items jamila (where applicable) has been applied. Labs Laboratory Tests Test 06/13/17 12:15 06/13/17 13:38 06/13/17 14:25 06/13/17 21:21 White Blood Count 4.9 x10^3/uL (4.0-11.0) Red Blood Count 4.23 x10^6/uL (4.30-5.70) Hemoglobin 13.5 g/dL (13.0-17.5) Hematocrit 40.4 % (39.0-53.0) Mean Corpuscular Volume 96 fL (79-100) Mean Corpuscular Hemoglobin 32 pg (25-35) Mean Corpuscular Hemoglobin Concent 33 g/dL (31-37) Red Cell Distribution Width 13.8 % (11.5-14.5) Platelet Count 190 x10^3/uL (140-400) Neutrophils (%) (Auto) 66 % (31-73) Lymphocytes (%) (Auto) 18 % (24-48) Monocytes (%) (Auto) 9 % (0-9) Eosinophils (%) (Auto) 7 % (0-3) Basophils (%) (Auto) 0 % (0-3) Neutrophils # (Auto) 3.2 x10^3uL (1.8-7.7) Lymphocytes # (Auto) 0.9 x10^3/uL (1.0-4.8) Monocytes # (Auto) 0.5 x10^3/uL (0.0-1.1) Eosinophils # (Auto) 0.3 x10^3/uL (0.0-0.7) Basophils # (Auto) 0.0 x10^3/uL (0.0-0.2) Prothrombin Time 12.4 SEC (11.7-14.0) Prothromb Time International Ratio 1.0 (0.8-1.1) Sodium Level 138 mmol/L (136-145) Potassium Level 4.0 mmol/L (3.5-5.1) Chloride Level 101 mmol/L (98-107) Carbon Dioxide Level 30 mmol/L (21-32) Anion Gap 7 (6-14) Blood Urea Nitrogen 15 mg/dL (8-26) Creatinine 0.7 mg/dL (0.7-1.3) Estimated GFR (Cockcroft-Gault) 113.9 Glucose Level 104 mg/dL (70-99) Calcium Level 9.3 mg/dL (8.5-10.1) Magnesium Level 1.9 mg/dL (1.8-2.4) Total Bilirubin 0.4 mg/dL (0.2-1.0) Direct Bilirubin 0.1 mg/dL (0.0-0.2) Aspartate Amino Transf (AST/SGOT) 26 U/L (15-37) Alanine Aminotransferase (ALT/SGPT) 19 U/L (16-63) Alkaline Phosphatase 44 U/L (46-116) Creatine Kinase 56 U/L (39-308) 49 U/L (39-308) Creatine Kinase MB (Mass) 2.6 ng/mL (0.0-3.6) 2.4 ng/mL (0.0-3.6) Creatine Kinase MB Relative Index % (0-4) 4.9 % (0-4) Troponin I Quantitative < 0.017 ng/mL (0.000-0.055) < 0.017 ng/mL (0.000-0.055) < 0.017 ng/mL (0.000-0.055) [id number]-Type Natriuretic Peptide 173 pg/mL (0-124) Total Protein 8.3 g/dL (6.4-8.2) Albumin 3.2 g/dL (3.4-5.0) Lipase 166 U/L (73-393) Thyroid Stimulating Hormone (TSH) 5.671 uIU/mL (0.358-3.74) Urine Collection Type Void Urine Color [place] Urine Clarity Clear Urine pH 6.5 Urine Specific [place] 1.025 Urine Protein Negative mg/dL (NEG-TRACE) Urine Glucose (UA) Negative mg/dL (NEG) Urine Ketones (Stick) Negative mg/dL (NEG) Urine Blood Negative (NEG) Urine Nitrite Negative (NEG) Urine Bilirubin Small (NEG) Urine Urobilinogen Dipstick 0.2 mg/dL (0.2 mg/dL) Urine Leukocyte Esterase Small (NEG) Urine RBC 0 /HPF (0-2) Urine WBC Occ /HPF (0-4) Urine Squamous Epithelial Cells Occ /LPF Urine Bacteria 0 /HPF (0-FEW) Urine Mucus Mod /LPF Urine Opiates Screen Pos (NEG) Urine Methadone Screen Neg (NEG) Urine Barbiturates Neg (NEG) Urine Phencyclidine Screen Neg (NEG) Urine Amphetamine/Methamphetamine Neg (NEG) Urine Benzodiazepines Screen Pos (NEG) Urine Cocaine Screen Neg (NEG) Urine Cannabinoids Screen Neg (NEG) Urine Ethyl Alcohol Neg (NEG) Test 06/14/17 02:55 06/14/17 03:45 White Blood Count 4.4 x10^3/uL (4.0-11.0) Red Blood Count 4.10 x10^6/uL (4.30-5.70) Hemoglobin 13.0 g/dL (13.0-17.5) Hematocrit 39.1 % (39.0-53.0) Mean Corpuscular Volume 95 fL (79-100) Mean Corpuscular Hemoglobin 32 pg (25-35) Mean Corpuscular Hemoglobin Concent 33 g/dL (31-37) Red Cell Distribution Width 13.7 % (11.5-14.5) Platelet Count 208 x10^3/uL (140-400) Neutrophils (%) (Auto) 61 % (31-73) Lymphocytes (%) (Auto) 22 % (24-48) Monocytes (%) (Auto) 10 % (0-9) Eosinophils (%) (Auto) 7 % (0-3) Basophils (%) (Auto) 1 % (0-3) Neutrophils # (Auto) 2.7 x10^3uL (1.8-7.7) Lymphocytes # (Auto) 1.0 x10^3/uL (1.0-4.8) Monocytes # (Auto) 0.4 x10^3/uL (0.0-1.1) Eosinophils # (Auto) 0.3 x10^3/uL (0.0-0.7) Basophils # (Auto) 0.0 x10^3/uL (0.0-0.2) Sodium Level 140 mmol/L (136-145) Potassium Level 3.8 mmol/L (3.5-5.1) Chloride Level 102 mmol/L (98-107) Carbon Dioxide Level 31 mmol/L (21-32) Anion Gap 7 (6-14) Blood Urea Nitrogen 16 mg/dL (8-26) Creatinine 0.6 mg/dL (0.7-1.3) Estimated GFR (Cockcroft-Gault) 136.1 Glucose Level 97 mg/dL (70-99) Calcium Level 9.4 mg/dL (8.5-10.1) Troponin I Quantitative < 0.017 ng/mL (0.000-0.055) Laboratory Tests Test 06/13/17 21:21 06/14/17 02:55 06/14/17 03:45 Troponin I Quantitative < 0.017 ng/mL (0.000-0.055) < 0.017 ng/mL (0.000-0.055) White Blood Count 4.4 x10^3/uL (4.0-11.0) Red Blood Count 4.10 x10^6/uL (4.30-5.70) Hemoglobin 13.0 g/dL (13.0-17.5) Hematocrit 39.1 % (39.0-53.0) Mean Corpuscular Volume 95 fL (79-100) Mean Corpuscular Hemoglobin 32 pg (25-35) Mean Corpuscular Hemoglobin Concent 33 g/dL (31-37) Red Cell Distribution Width 13.7 % (11.5-14.5) Platelet Count 208 x10^3/uL (140-400) Neutrophils (%) (Auto) 61 % (31-73) Lymphocytes (%) (Auto) 22 % (24-48) Monocytes (%) (Auto) 10 % (0-9) Eosinophils (%) (Auto) 7 % (0-3) Basophils (%) (Auto) 1 % (0-3) Neutrophils # (Auto) 2.7 x10^3uL (1.8-7.7) Lymphocytes # (Auto) 1.0 x10^3/uL (1.0-4.8) Monocytes # (Auto) 0.4 x10^3/uL (0.0-1.1) Eosinophils # (Auto) 0.3 x10^3/uL (0.0-0.7) Basophils # (Auto) 0.0 x10^3/uL (0.0-0.2) Sodium Level 140 mmol/L (136-145) Potassium Level 3.8 mmol/L (3.5-5.1) Chloride Level 102 mmol/L (98-107) Carbon Dioxide Level 31 mmol/L (21-32) Anion Gap 7 (6-14) Blood Urea Nitrogen 16 mg/dL (8-26) Creatinine 0.6 mg/dL (0.7-1.3) Estimated GFR (Cockcroft-Gault) 136.1 Glucose Level 97 mg/dL (70-99) Calcium Level 9.4 mg/dL (8.5-10.1) Medications Current Medications Albuterol/ Ipratropium (Duoneb) 3 ml 1X ONCE NEB Last administered on t 12:34; Start 06/13/17 at 12:30; Stop 06/13/17 at 12:31; Status DC Ondansetron HCl (Zofran) 4 mg PRN Q8HRS PRN IV NAUSEA/VOMITING; Start 06/13/17 at 15:45; Stop 06/14/17 at 15:44; Status DC Morphine Sulfate 2 mg PRN Q2HR PRN IV PAIN; Start 06/13/17 at 15:45; Stop 06/14 at 15:44; Status DC Pantoprazole Sodium (Protonix) 40 mg 1X ONCE PO Last administered on t 18:35; Start 06/13/17 at 17:00; Stop 06/13/17 at 17:01; Status DC Acetaminophen (Tylenol) 650 mg PRN Q4HRS PRN PO MILD PAIN/FEVER; Start at 17:30 Benzonatate (Tessalon Perle) 100 mg TID PRN PO COUGH Last administered on 23:26; Start 06/13/17 at 17:30 Ethambutol HCl (Myambutol) 800 mg DAILY PO Last administered on 06/14/17 10:32 ; Start 06/14/17 at 09:00 Acetaminophen/ Hydrocodone Bitart (Lortab 5/325) 1 tab Q4HRS PRN PO PAIN; Start 06/13/17 at 17:30 Albuterol/ Ipratropium (Duoneb) 3 ml RTQID NEB Last administered on 06/14/17 12:08; Start 06/13/17 at 20:00 Rifampin (Rifadin) 300 mg BID PO Last administered on 06/14/17 10:31; Start at 21:00 Temazepam (Restoril) 15 mg HS PO Last administered on 06/13/17 23:24; Start at 21:00 Non-Formulary Medication 1 vial Q4HRS NEB ; Start 06/13/17 at 20:00; Status UNV Albuterol Sulfate (Ventolin Neb Soln) 2.5 mg PRN Q4HRS PRN NEB SHORTNESS OF BREATH Last administered on 06/13/17 23:10; Start 06/13/17 at 17:30 Escitalopram Oxalate (Lexapro) 10 mg DAILY PO Last administered on 06/14/17 10 :32; Start 06/14/17 at 09:00 Lorazepam (Ativan) 0.5 mg PRN Q4HRS PRN PO ANXIETY / AGITATION Last administered on 06/13/17 23:24; Start 06/13/17 at 19:30 Regadenoson (Lexiscan) 0.4 mg 1X ONCE IV Last administered on 06/14/17 10:21 ; Start 06/14/17 at 09:00; Stop 06/14/17 at 09:01; Status DC Active Scripts Active Hydrocodone-Apap 5-325 (Hydrocodone Bit/Acetaminophen) 1 Each Tablet 1 Tab PO PRN Q4H PRN 30 Days Tessalon Perle (Benzonatate) 100 Mg Capsule 100 Mg PO TID PRN Reported Tylenol (Acetaminophen) 325 Mg Tablet 2 Tab PO PRN Q4HRS Albuterol Sulfate Conc Neb Soln (Albuterol Sulfate) 2.5 Mg/0.5 Ml Vial.neb 1 Vial NEB Q4HRS Proair Hfa Inhaler (Albuterol Sulfate) 8.5 Gm Hfa.aer.ad 1 Puff INH PRN Q4HRS PRN Duoneb 0.5-3(2.5) Mg/3 Ml (Albuterol/Ipratropium) 3 Ml Ampul.neb 3 Ml NEB QID Ethambutol Hcl 400 Mg Tablet 800 Mg DAILY Rifampin 300 Mg Capsule 300 Mg BID Escitalopram Oxalate 10 Mg Tablet 10 Mg DAILY Temazepam 15 Mg Capsule 1 Cap HS Vitals/I & O Vital Sign - Last 24 Hours 06/13/17 06/13/17 06/13/17 06/13/17 17:30 17:30 17:33 17:56 Temp 98.1 98.1 98.1 98.1 Pulse 75 75 Resp 22 22 B/P (MAP) 107/71 (83) 107/71 (83) Pulse Ox 94 94 94 O2 Delivery Room Air Room Air Room Air Room Air 06/13/17 06/13/17 06/13/17 06/13/17 19:00 20:00 20:08 23:00 Temp 97.9 97.9 97.9 97.9 Pulse 81 86 Resp 16 18 B/P (MAP) 98/62 (74) 108/63 (78) Pulse Ox 95 95 99 O2 Delivery Room Air Room Air Room Air Room Air 06/13/17 06/14/17 06/14/17 06/14/17 23:10 03:00 05:58 07:00 Temp 97.9 97.5 97.9 97.5 Pulse 72 99 Resp 16 20 B/P (MAP) 90/55 (67) 83/48 (60) Pulse Ox 97 96 93 O2 Delivery Room Air Room Air Room Air 06/14/17 06/14/17 06/14/17 06/14/17 08:00 11:00 12:09 15:00 Temp 97.5 97.8 97.5 97.8 Pulse 80 80 Resp 20 20 B/P (MAP) 104/81 (89) 93/60 (71) Pulse Ox 97 96 92 O2 Delivery Room Air Room Air Room Air Room Air Intake and Output 06/13/17 06/13/17 06/14/17 15:00 23:00 07:00 Output Total 0 ml Balance 0 ml MAGDI CLAIRE MD Jun 14, 2017 15:50
--- NOTE | 2017-06-14 16:01 | RAD ---
APPROVED REPORT Test Type: Pharmacological Stress Nurse/Tech: Ana Jose RN Test Indications: Chest Pain, SOA Cardiac History: see ehr Medications: see ehr Medical History: see ehr Resting ECG: SR Resting Heart Rate: 91 bpm Resting Blood Pressure: 113/39mmHg Pretest Chest Pain: None Nurse/Tech Notes Lungs CTA, diminished, S1, S2 Consent: The procedure was explained to the patient in lay terms. Informed consent was witnessed. Mau eout was entered into [employer]. History and Stress Test performed by Jeff ZamanNRl Pharm. Details Pharmacologic stress testing was performed using 0.4mg per 5ml of regadenoson given intravenously ove r 7-10 seconds. Stress Symptoms No chest pain or symptoms. POST EXERCISE Reason for Termination: Infusion complete Max HR: 123 bpm Max Blood Pressure: 118/62mmHg Blood Pressure response to exercise: Normal blood pressure response during stress. Chest Pain: No. Arrhythmia: No. ST Change: No. INTERPRETATION Stress EKG Conclusion: The resting EKG shows a sinus rhythm with minimal nonspecific ST-T wave change s. The stress EKG showed no significant changes from baseline. No EKG evidence of stress-induced ischemia. Imaging Protocol IMAGE PROTOCOL: Rest Tc-99m/stress Tc-99m 1 day Rest: Stress: Viability: Radiopharm.Tc99m [id number] Sestamibi [id number] 32mCi Img Date 06/14/2017 06/14/2017 Inj-Img [id number]. 30min. Rest Admin Site:IV - Right WristAdministrator:LAINEY Ray, ARRT (R)(N) Stress Admin Site: IV - Right WristAdministrator: LAINEY Ray, ARRT (R)(N) STRESS DATA End Diast. Vol.53.0mlAv. Heart Rate80.0bpm End Syst. Vol.11.0mlCO Index BSA0.0L/min Myocardial Xzny168.0gEject. Lrmpvidv66.0% Stress Rates Pk. Fill Rate4.62EDV/secLVtime Pk. Fill 220.73msec Pk. Empty Rate6.46ESV/secLVtime Pk. Eject81.67msec 12/03 Pk. Fill1.14EDV/sec Stress Scores Regional WT0.00Summed WT9.00 Regional WM0.00Summed WM1.00 LV Perfusion The stress scans showed no significant defects. The rest scans showed no significant defects. Nuclear imaging shows no reversible ischemia or infarct. Wall Motion Normal left ventricular systolic function with an ejection fraction of greater than 70%. LV Perf. Quant 17 Seg. SSS3.00 17 Seg. SRS5.00 17 Seg. SDS0.00 Stress Defect Extent (% LAD)6.90Rest Defect Extent (% LAD)17.50Rev. Defect Extent (% LAD)0.00 Stress Defect Extent (% LCX) 0.00Rest Defect Extent (% LCX)7.50Rev. Defect Extent (% LCX)0.00 Stress Defect Extent (% RCA)0.00Rest Defect Extent (% RCA)3.30Rev. Defect Extent (% RCA)0.00 Stress Defect Extent (% CHULA)5.90Rest Defect Extent (% CHULA)11.70Rev. Defect Extent (% CHULA)0.00 Conclusion 1. No EKG evidence of stress-induced ischemia. 2. Nuclear imaging shows no reversible ischemia or infarct. 3. Normal left ventricular systolic function with an ejection fraction of greater than 70%. 4. Low risk Lexiscan nuclear stress test.
[2017-06-14] MEDS: BENZONATATE 100 MG CAPSULE. PO PRN ×2 (17:54→22:58)
[2017-06-14] MEDS: HYDROcodone/APAP 5/325MG 1 TAB TABLET PO PRN ×2 (17:55→22:59)
[2017-06-14 19:05] VITALS: BP 100/66
[2017-06-14] MEDS: ALBUTEROL SULFATE 2.5 MG/3 ML NEBU. NEB PRN (22:47)
[2017-06-14] MEDS: LORazepam 0.5 MG TABLET PO PRN (22:58)
[2017-06-14] MEDS: TEMAZEPAM 15 MG CAPSULE PO SCH (22:58)
[2017-06-14 23:20] VITALS: BP 102/66
[2017-06-15 07:00] VITALS: BP 99/58
[2017-06-15] MEDS: IPRATRPIUM/ALBUTEROL 0.5/2.5MG 3 ML NEBU. NEB SCH ×4 (07:36→19:42)
[2017-06-15] MEDS: BENZONATATE 100 MG CAPSULE. PO PRN ×2 (08:43→22:42)
[2017-06-15] MEDS: ESCITALOPRAM 10 MG TABLET. PO SCH (08:43)
[2017-06-15] MEDS: riFAMpin 300 MG CAPSULE. PO SCH ×2 (08:43→22:42)
[2017-06-15] MEDS: ETHAMBUTOL HCL 400 MG TABLET PO SCH (08:43)
[2017-06-15] MEDS: HYDROcodone/APAP 5/325MG 1 TAB TABLET PO PRN ×2 (08:44→22:43)
[2017-06-15] MEDS: LORazepam 0.5 MG TABLET PO PRN ×2 (08:46→22:42)
[2017-06-15 11:00] VITALS: BP 91/65
--- NOTE | 2017-06-15 12:42 | PN ---
PROGRESS NOTES Subjective Subjective The patient is still c/o chest pain mostly in the sternum His nuclear stress again showed no evidence of reversible ischemia He continues to have recurrent bouts of cough with whitish-yellowish sputum Objective Objective Vital Signs Date Time Temp Pulse Resp B/P (MAP) Pulse Ox O2 Delivery O2 Flow Rate FiO2 06/15/17 11:34 99 Nasal Cannula 2.0 06/15/17 11:00 98.6 62 20 91/65 (74) 98.6 Intake and Output 06/15/17 07:00 Intake Total 740 ml Balance 740 ml Intake Oral 740 ml # Voids 5 Physical Exam Physical Exam Resting slightly propped up in bed in NAD Vitals are stable Tenderness on palpating sternum COMMENT So far no obvious cuase for chest pain Three sets of cardiac enzymes and stress test are negative CT Angio showed no evidence of pulmonary embolism He is PPI and anatacids Diagnosis DIAGNOSIS Atypical chest pain PROBLEM LIST Atypical chest pain severe COPD MA Complex NICM PAFIB Assessment Assessment CHEST PAIN CAUSE? Await G I team evaluation Plan Plan of Care continue current medication add lidoderm patch Comment Labs Laboratory Tests Test 06/13/17 13:38 06/13/17 14:25 06/13/17 21:21 06/14/17 02:55 Urine Collection Type Void Urine Color [place] Urine Clarity Clear Urine pH 6.5 Urine Specific [place] 1.025 Urine Protein Negative mg/dL (NEG-TRACE) Urine Glucose (UA) Negative mg/dL (NEG) Urine Ketones (Stick) Negative mg/dL (NEG) Urine Blood Negative (NEG) Urine Nitrite Negative (NEG) Urine Bilirubin Small (NEG) Urine Urobilinogen Dipstick 0.2 mg/dL (0.2 mg/dL) Urine Leukocyte Esterase Small (NEG) Urine RBC 0 /HPF (0-2) Urine WBC Occ /HPF (0-4) Urine Squamous Epithelial Cells Occ /LPF Urine Bacteria 0 /HPF (0-FEW) Urine Mucus Mod /LPF Urine Opiates Screen Pos (NEG) Urine Methadone Screen Neg (NEG) Urine Barbiturates Neg (NEG) Urine Phencyclidine Screen Neg (NEG) Urine Amphetamine/Methamphetamine Neg (NEG) Urine Benzodiazepines Screen Pos (NEG) Urine Cocaine Screen Neg (NEG) Urine Cannabinoids Screen Neg (NEG) Urine Ethyl Alcohol Neg (NEG) Creatine Kinase 49 U/L (39-308) Creatine Kinase MB (Mass) 2.4 ng/mL (0.0-3.6) Creatine Kinase MB Relative Index 4.9 % (0-4) Troponin I Quantitative < 0.017 ng/mL (0.000-0.055) < 0.017 ng/mL (0.000-0.055) White Blood Count 4.4 x10^3/uL (4.0-11.0) Red Blood Count 4.10 x10^6/uL (4.30-5.70) Hemoglobin 13.0 g/dL (13.0-17.5) Hematocrit 39.1 % (39.0-53.0) Mean Corpuscular Volume 95 fL (79-100) Mean Corpuscular Hemoglobin 32 pg (25-35) Mean Corpuscular Hemoglobin Concent 33 g/dL (31-37) Red Cell Distribution Width 13.7 % (11.5-14.5) Platelet Count 208 x10^3/uL (140-400) Neutrophils (%) (Auto) 61 % (31-73) Lymphocytes (%) (Auto) 22 % (24-48) Monocytes (%) (Auto) 10 % (0-9) Eosinophils (%) (Auto) 7 % (0-3) Basophils (%) (Auto) 1 % (0-3) Neutrophils # (Auto) 2.7 x10^3uL (1.8-7.7) Lymphocytes # (Auto) 1.0 x10^3/uL (1.0-4.8) Monocytes # (Auto) 0.4 x10^3/uL (0.0-1.1) Eosinophils # (Auto) 0.3 x10^3/uL (0.0-0.7) Basophils # (Auto) 0.0 x10^3/uL (0.0-0.2) Sodium Level 140 mmol/L (136-145) Potassium Level 3.8 mmol/L (3.5-5.1) Chloride Level 102 mmol/L (98-107) Carbon Dioxide Level 31 mmol/L (21-32) Anion Gap 7 (6-14) Blood Urea Nitrogen 16 mg/dL (8-26) Creatinine 0.6 mg/dL (0.7-1.3) Estimated GFR (Cockcroft-Gault) 136.1 Glucose Level 97 mg/dL (70-99) Calcium Level 9.4 mg/dL (8.5-10.1) Test 06/14/17 03:45 Troponin I Quantitative < 0.017 ng/mL (0.000-0.055) Microbiology 06/13/17 Urine Culture - Preliminary, Resulted 06/13/17 Urine Culture Result 1 (IAVN) - Preliminary, Resulted Medications Current Medications Albuterol/ Ipratropium (Duoneb) 3 ml 1X ONCE NEB Last administered on 12:34; Start 06/13/17 at 12:30; Stop 06/13/17 at 12:31; Status DC Ondansetron HCl (Zofran) 4 mg PRN Q8HRS PRN IV NAUSEA/VOMITING; Start 06/13/17 at 15:45; Stop 06/14/17 at 15:44; Status DC Morphine Sulfate 2 mg PRN Q2HR PRN IV PAIN; Start 06/13/17 at 15:45; Stop 06/14 at 15:44; Status DC Pantoprazole Sodium (Protonix) 40 mg 1X ONCE PO Last administered on 18:35; Start 06/13/17 at 17:00; Stop 06/13/17 at 17:01; Status DC Acetaminophen (Tylenol) 650 mg PRN Q4HRS PRN PO MILD PAIN/FEVER; Start at 17:30 Benzonatate (Tessalon Perle) 100 mg TID PRN PO COUGH Last administered on 08:43; Start 06/13/17 at 17:30 Ethambutol HCl (Myambutol) 800 mg DAILY PO Last administered on 06/15/17 08:43 ; Start 06/14/17 at 09:00 Acetaminophen/ Hydrocodone Bitart (Lortab 5/325) 1 tab Q4HRS PRN PO PAIN Last administered on 06/15/17 08:44; Start 06/13/17 at 17:30 Albuterol/ Ipratropium (Duoneb) 3 ml RTQID NEB Last administered on 06/15/17 11:33; Start 06/13/17 at 20:00 Rifampin (Rifadin) 300 mg BID PO Last administered on 06/15/17 08:43; Start at 21:00 Temazepam (Restoril) 15 mg HS PO Last administered on 06/14/17 22:58; Start at 21:00 Non-Formulary Medication 1 vial Q4HRS NEB ; Start 06/13/17 at 20:00; Status UNV Albuterol Sulfate (Ventolin Neb Soln) 2.5 mg PRN Q4HRS PRN NEB SHORTNESS OF BREATH Last administered on 06/14/17 22:47; Start 06/13/17 at 17:30 Escitalopram Oxalate (Lexapro) 10 mg DAILY PO Last administered on 06/15/17 08 :43; Start 06/14/17 at 09:00 Lorazepam (Ativan) 0.5 mg PRN Q4HRS PRN PO ANXIETY / AGITATION Last administered on 06/15/17 08:46; Start 06/13/17 at 19:30 Regadenoson (Lexiscan) 0.4 mg 1X ONCE IV Last administered on 06/14/17 10:21 ; Start 06/14/17 at 09:00; Stop 06/14/17 at 09:01; Status DC Active Scripts Active Hydrocodone-Apap 5-325 (Hydrocodone Bit/Acetaminophen) 1 Each Tablet 1 Tab PO PRN Q4H PRN 30 Days Tessalon Perle (Benzonatate) 100 Mg Capsule 100 Mg PO TID PRN Reported Tylenol (Acetaminophen) 325 Mg Tablet 2 Tab PO PRN Q4HRS Albuterol Sulfate Conc Neb Soln (Albuterol Sulfate) 2.5 Mg/0.5 Ml Vial.neb 1 Vial NEB Q4HRS Proair Hfa Inhaler (Albuterol Sulfate) 8.5 Gm Hfa.aer.ad 1 Puff INH PRN Q4HRS PRN Duoneb 0.5-3(2.5) Mg/3 Ml (Albuterol/Ipratropium) 3 Ml Ampul.neb 3 Ml NEB QID Ethambutol Hcl 400 Mg Tablet 800 Mg DAILY Rifampin 300 Mg Capsule 300 Mg BID Escitalopram Oxalate 10 Mg Tablet 10 Mg DAILY Temazepam 15 Mg Capsule 1 Cap HS Vitals/I & O Vital Sign - Last 24 Hours 06/14/17 06/14/17 06/14/17 06/14/17 15:00 16:13 17:55 18:58 Temp 97.8 97.8 Pulse 80 Resp 20 16 B/P (MAP) 93/60 (71) Pulse Ox 92 96 96 96 O2 Delivery Room Air Room Air Room Air 06/14/17 06/14/17 06/14/17 06/14/17 19:05 19:11 20:15 22:50 Temp 97.6 97.6 Pulse 76 Resp 18 B/P (MAP) 100/66 (77) Pulse Ox 93 97 96 O2 Delivery Room Air Room Air Room Air Room Air 06/14/17 06/15/17 06/15/17 06/15/17 23:20 03:59 07:00 07:31 Temp 98.0 97.9 98.0 97.9 Pulse 67 72 Resp 18 20 B/P (MAP) 102/66 (78) 99/58 (72) Pulse Ox 98 98 O2 Delivery Room Air Nasal Cannula Room Air Nasal Cannula O2 Flow Rate 2.0 2.0 06/15/17 06/15/17 06/15/17 06/15/17 07:37 08:44 09:44 11:00 Temp 98.6 98.6 Pulse 62 Resp 16 16 20 B/P (MAP) 91/65 (74) Pulse Ox 99 99 99 O2 Delivery Nasal Cannula Nasal Cannula Nasal Cannula Room Air O2 Flow Rate 2.0 2.0 06/15/17 11:34 Pulse Ox 99 O2 Delivery Nasal Cannula O2 Flow Rate 2.0 Intake and Output 06/14/17 06/14/17 06/15/17 15:00 23:00 07:00 Intake Total 500 ml 240 ml Balance 500 ml 240 ml MANI MCHUGH MD Jun 15, 2017 12:42
[2017-06-15] MEDS: LIDOCAINE (700MG/PATCH) PATCH. TD SCH (13:46)
[2017-06-15] MEDS: CLARITHROMYCIN 500 MG TABLET. PO SCH ×2 (13:46→22:43)
[2017-06-15 15:00] VITALS: BP 108/57
[2017-06-15] MEDS: PANTOPRAZOLE 40 MG TABLET.DR. PO SCH (17:18)
[2017-06-15 19:57] VITALS: BP 91/47
[2017-06-15] MEDS: ALBUTEROL SULFATE 2.5 MG/3 ML NEBU. NEB PRN (22:39)
[2017-06-15] MEDS: TEMAZEPAM 15 MG CAPSULE PO SCH (22:43)
[2017-06-15 23:04] VITALS: BP 115/72
[2017-06-15 23:27] VITALS: BP 131/61
[2017-06-16 03:08] VITALS: BP 82/44
[2017-06-16] MEDS: ALBUTEROL SULFATE 2.5 MG/3 ML NEBU. NEB PRN ×2 (05:11→17:47)
[2017-06-16 07:05] VITALS: BP 76/42
[2017-06-16] MEDS: IPRATRPIUM/ALBUTEROL 0.5/2.5MG 3 ML NEBU. NEB SCH ×4 (07:56→19:20)
[2017-06-16] MEDS: PANTOPRAZOLE 40 MG TABLET.DR. PO SCH ×2 (08:29→16:40)
[2017-06-16] MEDS: ESCITALOPRAM 10 MG TABLET. PO SCH (08:29)
[2017-06-16] MEDS: riFAMpin 300 MG CAPSULE. PO SCH ×2 (08:30→23:17)
[2017-06-16] MEDS: CLARITHROMYCIN 500 MG TABLET. PO SCH ×2 (08:30→23:15)
[2017-06-16] MEDS: ETHAMBUTOL HCL 400 MG TABLET PO SCH (08:30)
[2017-06-16] MEDS: LIDOCAINE (700MG/PATCH) PATCH. TD SCH (08:31)
[2017-06-16] MEDS: BENZONATATE 100 MG CAPSULE. PO PRN (08:33)
[2017-06-16] MEDS: LORazepam 0.5 MG TABLET PO PRN ×2 (09:30→23:15)
[2017-06-16 10:58] VITALS: BP 84/50
--- NOTE | 2017-06-16 11:46 | PN ---
PROGRESS NOTES Subjective Subjective resting propped up in bed continues to c/o retrosternal chest pain So far the nuclear stress was negative Recent CT Angio was negative for PE He is already on PPI He was on doxycycline that might cause Pill induced esophagitis Objective Objective Vital Signs Date Time Temp Pulse Resp B/P (MAP) Pulse Ox O2 Delivery O2 Flow Rate FiO2 06/16/17 11:19 Room Air 06/16/17 10:58 98.5 71 19 84/50 (61) 93 2.0 98.5 Intake and Output 06/16/17 07:00 Intake Total 400 ml Balance 400 ml Intake Oral 400 ml # Voids 5 Physical Exam Physical Exam The patienty was hypotensive this morning with SBP IN 70S Did receive N/S 500 CC bolus and his bp is 90/60 COMMENT Will wait for G I team evaluation to eliminate acid reflux as the cause of his pain Diagnosis DIAGNOSIS Atypical chest pain with negative result so far PROBLEM LIST as above Assessment Assessment Recurrent admission with chest pain CT Angio negative for PE Nuclear stress test was negative for reversible ischemia Plan Plan of Care I have spoken with GI team Nurse practitioner for arrangement for upper G I Endoscopy Comment Labs Microbiology 06/13/17 Urine Culture - Final, Complete 06/13/17 Urine Culture Result 1 (IVAN) - Final, Complete Medications Current Medications Albuterol/ Ipratropium (Duoneb) 3 ml 1X ONCE NEB Last administered on t 12:34; Start 06/13/17 at 12:30; Stop 06/13/17 at 12:31; Status DC Ondansetron HCl (Zofran) 4 mg PRN Q8HRS PRN IV NAUSEA/VOMITING; Start 06/13/17 at 15:45; Stop 06/14/17 at 15:44; Status DC Morphine Sulfate 2 mg PRN Q2HR PRN IV PAIN; Start 06/13/17 at 15:45; Stop 06/14 at 15:44; Status DC Pantoprazole Sodium (Protonix) 40 mg 1X ONCE PO Last administered on t 18:35; Start 06/13/17 at 17:00; Stop 06/13/17 at 17:01; Status DC Acetaminophen (Tylenol) 650 mg PRN Q4HRS PRN PO MILD PAIN/FEVER; Start at 17:30 Benzonatate (Tessalon Perle) 100 mg TID PRN PO COUGH Last administered on 08:33; Start 06/13/17 at 17:30 Ethambutol HCl (Myambutol) 800 mg DAILY PO Last administered on 06/16/17 08:30 ; Start 06/14/17 at 09:00 Acetaminophen/ Hydrocodone Bitart (Lortab 5/325) 1 tab Q4HRS PRN PO PAIN Last administered on 06/15/17 22:43; Start 06/13/17 at 17:30 Albuterol/ Ipratropium (Duoneb) 3 ml RTQID NEB Last administered on 06/16/17 11:18; Start 06/13/17 at 20:00 Rifampin (Rifadin) 300 mg BID PO Last administered on 06/16/17 08:30; Start at 21:00 Temazepam (Restoril) 15 mg HS PO Last administered on 06/15/17 22:43; Start at 21:00 Non-Formulary Medication 1 vial Q4HRS NEB ; Start 06/13/17 at 20:00; Status UNV Albuterol Sulfate (Ventolin Neb Soln) 2.5 mg PRN Q4HRS PRN NEB SHORTNESS OF BREATH Last administered on 06/16/17 05:11; Start 06/13/17 at 17:30 Escitalopram Oxalate (Lexapro) 10 mg DAILY PO Last administered on 06/16/17 08 :29; Start 06/14/17 at 09:00 Lorazepam (Ativan) 0.5 mg PRN Q4HRS PRN PO ANXIETY / AGITATION Last administered on 06/16/17 09:30; Start 06/13/17 at 19:30 Regadenoson (Lexiscan) 0.4 mg 1X ONCE IV Last administered on 06/14/17 10:21 ; Start 06/14/17 at 09:00; Stop 06/14/17 at 09:01; Status DC Clarithromycin (Biaxin) 500 mg BID PO Last administered on 06/16/17 08:30; Start 06/15/17 at 13:00 Lidocaine (Lidoderm) 2 patch DAILY TD Last administered on 06/16/17 08:31; Start 7/16/17 at 13:00 Pantoprazole Sodium (Protonix) 40 mg BIDAC PO Last administered on 06/16/17t 08 :29; Start 06/15/17 at 16:30 Active Scripts Active Hydrocodone-Apap 5-325 (Hydrocodone Bit/Acetaminophen) 1 Each Tablet 1 Tab PO PRN Q4H PRN 30 Days Tessalon Perle (Benzonatate) 100 Mg Capsule 100 Mg PO TID PRN Reported Tylenol (Acetaminophen) 325 Mg Tablet 2 Tab PO PRN Q4HRS Albuterol Sulfate Conc Neb Soln (Albuterol Sulfate) 2.5 Mg/0.5 Ml Vial.neb 1 Vial NEB Q4HRS Proair Hfa Inhaler (Albuterol Sulfate) 8.5 Gm Hfa.aer.ad 1 Puff INH PRN Q4HRS PRN Duoneb 0.5-3(2.5) Mg/3 Ml (Albuterol/Ipratropium) 3 Ml Ampul.neb 3 Ml NEB QID Ethambutol Hcl 400 Mg Tablet 800 Mg DAILY Rifampin 300 Mg Capsule 300 Mg BID Escitalopram Oxalate 10 Mg Tablet 10 Mg DAILY Temazepam 15 Mg Capsule 1 Cap HS Vitals/I & O Vital Sign - Last 24 Hours 06/15/17 06/15/17 06/15/17 06/15/17 15:00 15:19 19:44 19:47 Temp 97.8 97.8 Pulse 86 Resp 20 B/P (MAP) 108/57 (74) Pulse Ox 92 96 96 O2 Delivery Room Air Nasal Cannula Nasal Cannula Room Air O2 Flow Rate 2.0 2.0 06/15/17 06/15/17 06/15/17 06/16/17 19:57 22:39 23:27 03:08 Temp 98.4 98.1 98.1 98.4 98.1 98.1 Pulse 79 58 72 Resp 20 20 18 B/P (MAP) 91/47 (62) 131/61 (84) 82/44 (57) Pulse Ox 93 97 98 O2 Delivery Nasal Cannula Room Air Nasal Cannula Nasal Cannula O2 Flow Rate 2.0 2.0 2.0 06/16/17 06/16/17 06/16/17 06/16/17 05:12 07:05 07:57 08:00 Temp 98.3 98.3 Pulse 77 Resp 16 B/P (MAP) 76/42 (53) Pulse Ox 93 94 O2 Delivery Room Air Room Air Room Air Room Air O2 Flow Rate 2.0 06/16/17 06/16/17 10:58 11:19 Temp 98.5 98.5 Pulse 71 Resp 19 B/P (MAP) 84/50 (61) Pulse Ox 93 O2 Delivery Nasal Cannula Room Air O2 Flow Rate 2.0 Intake and Output 06/15/17 06/15/17 06/16/17 15:00 23:00 07:00 Intake Total 400 ml Balance 400 ml MANI MCHUGH MD Jun 16, 2017 11:46
--- NOTE | 2017-06-16 13:09 | PDOC ---
Subjective: Subjective: Pain much improved, tolerating PO. Pain bothersome w/ coughing. Objective: Objective: D/w Dr. Royal - favors EGD. Vital Signs: Vital Signs Date Time Temp Pulse Resp B/P (MAP) Pulse Ox O2 Delivery O2 Flow Rate FiO2 06/16/17 11:19 Room Air 06/16/17 10:58 98.5 71 19 84/50 (61) 93 2.0 98.5 PE: GEN: NAD, was asleep LUNGS: diminished HEART: RRR ABD: non-tender NEURO/PSYCH: A & O 3 A/P: NCCP, epigastric pain, vomiting - resolved -worse w/ coughing -on empiric PPI -- Will proceed w/ EGD tomorrow afternoon. ANGELLA GUARDADO Jun 16, 2017 13:09
[2017-06-16 15:11] VITALS: BP 95/59
[2017-06-16 19:00] VITALS: BP 93/63
[2017-06-16 23:00] VITALS: BP 100/63
[2017-06-16] MEDS: HYDROcodone/APAP 5/325MG 1 TAB TABLET PO PRN (23:15)
[2017-06-16] MEDS: TEMAZEPAM 15 MG CAPSULE PO SCH (23:15)
[2017-06-17] MEDS: ALBUTEROL SULFATE 2.5 MG/3 ML NEBU. NEB PRN ×2 (00:03→23:16)
[2017-06-17 03:00] VITALS: BP 92/58
[2017-06-17 05:55] LABS: HEMATOCRIT 36.4 % (39.0-53.0); HEMOGLOBIN 12.4 g/dL (13.0-17.5); RED BLOOD COUNT 3.89 x10^6/uL (4.30-5.70); RED CELL DISTRIBUTION WIDTH 13.5 % (11.5-14.5); WHITE BLOOD COUNT 5.1 x10^3/uL (4.0-11.0)
[2017-06-17 06:05] LABS: CALCIUM 9.3 mg/dL (8.5-10.1); CREATININE 0.7 mg/dL (0.7-1.3); GFR 113.9; POTASSIUM 3.9 mmol/L (3.5-5.1)
[2017-06-17] MEDS ORDERED: MORPHINE SULFATE 2 MG/ML DISP.SYRIN. IV PRN (07:00)
[2017-06-17] MEDS ORDERED: IV RINGERS,LACTATED 1000ML 1,000 ML IV SCH (07:00)
[2017-06-17] MEDS ORDERED: HYDROmorphone 2 MG/ML VIAL IV PRN (07:00)
[2017-06-17] MEDS ORDERED: LIDOCAINE 1% 1 ML SYRINGE. ID PRN ×2 (07:00→12:00)
[2017-06-17] MEDS ORDERED: ONDANSETRON PF 4 MG/2 ML VIAL. IV PRN (07:00)
[2017-06-17] MEDS ORDERED: fentaNYL PF VIAL 100 MCG/2 ML VIAL IV PRN ×4 (07:00→12:00)
[2017-06-17] MEDS ORDERED: PROCHLORPERAZINE 10 MG/2 ML VIAL. IV PRN (07:00)
[2017-06-17 07:25] VITALS: BP 97/65
[2017-06-17] MEDS: PANTOPRAZOLE 40 MG TABLET.DR. PO SCH ×2 (07:30→15:05)
[2017-06-17] MEDS: CLARITHROMYCIN 500 MG TABLET. PO SCH ×2 (08:07→23:24)
[2017-06-17] MEDS: riFAMpin 300 MG CAPSULE. PO SCH ×2 (08:07→23:24)
[2017-06-17] MEDS: ESCITALOPRAM 10 MG TABLET. PO SCH ×2 (08:07→15:05)
[2017-06-17] MEDS: ETHAMBUTOL HCL 400 MG TABLET PO SCH ×2 (08:07→15:05)
[2017-06-17] MEDS: IPRATRPIUM/ALBUTEROL 0.5/2.5MG 3 ML NEBU. NEB SCH ×4 (08:10→19:24)
[2017-06-17] MEDS: LIDOCAINE (700MG/PATCH) PATCH. TD SCH (08:36)
--- NOTE | 2017-06-17 10:58 | PN ---
PROGRESS NOTES Subjective Subjective Resting propped up in bed in NAD Scheduled for EGD today Objective Objective Vital Signs Date Time Temp Pulse Resp B/P (MAP) Pulse Ox O2 Delivery O2 Flow Rate FiO2 06/17/17 08:10 98 Nasal Cannula 2.0 06/17/17 07:25 98.1 82 20 97/65 (76) 98.1 Intake and Output 06/17/17 07:00 Intake Total 740 ml Balance 740 ml Intake Oral 740 ml # Voids 5 Physical Exam Physical Exam vitals stable COMMENT Await the result of EGD and we might be able to discharge him back to [facility] H&R Diagnosis DIAGNOSIS atypical chest pain so far Negative nuclear stress test CT angio was negative for PE Awaiting EGD to r/o esophagitis PROBLEM LIST as above Assessment Assessment chest pain awaiting EGD Plan Plan of Care Will await the result of EGD to decide on further management Comment Labs Laboratory Tests Test 06/17/17 05:15 White Blood Count 5.1 x10^3/uL (4.0-11.0) Red Blood Count 3.89 x10^6/uL (4.30-5.70) Hemoglobin 12.4 g/dL (13.0-17.5) Hematocrit 36.4 % (39.0-53.0) Mean Corpuscular Volume 93 fL (79-100) Mean Corpuscular Hemoglobin 32 pg (25-35) Mean Corpuscular Hemoglobin Concent 34 g/dL (31-37) Red Cell Distribution Width 13.5 % (11.5-14.5) Platelet Count 239 x10^3/uL (140-400) Sodium Level 141 mmol/L (136-145) Potassium Level 3.9 mmol/L (3.5-5.1) Chloride Level 103 mmol/L (98-107) Carbon Dioxide Level 33 mmol/L (21-32) Anion Gap 5 (6-14) Blood Urea Nitrogen 16 mg/dL (8-26) Creatinine 0.7 mg/dL (0.7-1.3) Estimated GFR (Cockcroft-Gault) 113.9 Glucose Level 93 mg/dL (70-99) Calcium Level 9.3 mg/dL (8.5-10.1) Laboratory Tests Test 06/17/17 05:15 White Blood Count 5.1 x10^3/uL (4.0-11.0) Red Blood Count 3.89 x10^6/uL (4.30-5.70) Hemoglobin 12.4 g/dL (13.0-17.5) Hematocrit 36.4 % (39.0-53.0) Mean Corpuscular Volume 93 fL (79-100) Mean Corpuscular Hemoglobin 32 pg (25-35) Mean Corpuscular Hemoglobin Concent 34 g/dL (31-37) Red Cell Distribution Width 13.5 % (11.5-14.5) Platelet Count 239 x10^3/uL (140-400) Sodium Level 141 mmol/L (136-145) Potassium Level 3.9 mmol/L (3.5-5.1) Chloride Level 103 mmol/L (98-107) Carbon Dioxide Level 33 mmol/L (21-32) Anion Gap 5 (6-14) Blood Urea Nitrogen 16 mg/dL (8-26) Creatinine 0.7 mg/dL (0.7-1.3) Estimated GFR (Cockcroft-Gault) 113.9 Glucose Level 93 mg/dL (70-99) Calcium Level 9.3 mg/dL (8.5-10.1) Microbiology 06/15/17 Gram Stain - Final, Complete 06/13/17 Urine Culture - Final, Complete 06/13/17 Urine Culture Result 1 (IVAN) - Final, Complete Medications Current Medications Albuterol/ Ipratropium (Duoneb) 3 ml 1X ONCE NEB Last administered on t 12:34; Start 06/13/17 at 12:30; Stop 06/13/17 at 12:31; Status DC Ondansetron HCl (Zofran) 4 mg PRN Q8HRS PRN IV NAUSEA/VOMITING; Start 06/13/17 at 15:45; Stop 06/14/17 at 15:44; Status DC Morphine Sulfate 2 mg PRN Q2HR PRN IV PAIN; Start 06/13/17 at 15:45; Stop 06/14 at 15:44; Status DC Pantoprazole Sodium (Protonix) 40 mg 1X ONCE PO Last administered on t 18:35; Start 06/13/17 at 17:00; Stop 06/13/17 at 17:01; Status DC Acetaminophen (Tylenol) 650 mg PRN Q4HRS PRN PO MILD PAIN/FEVER; Start at 17:30 Benzonatate (Tessalon Perle) 100 mg TID PRN PO COUGH Last administered on 08:33; Start 06/13/17 at 17:30 Ethambutol HCl (Myambutol) 800 mg DAILY PO Last administered on 06/16/17 08:30 ; Start 06/14/17 at 09:00 Acetaminophen/ Hydrocodone Bitart (Lortab 5/325) 1 tab Q4HRS PRN PO PAIN Last administered on 06/16/17 23:15; Start 06/13/17 at 17:30 Albuterol/ Ipratropium (Duoneb) 3 ml RTQID NEB Last administered on 06/17/17 08:10; Start 06/13/17 at 20:00 Rifampin (Rifadin) 300 mg BID PO Last administered on 06/16/17 23:17; Start at 21:00 Temazepam (Restoril) 15 mg HS PO Last administered on 06/16/17 23:15; Start at 21:00 Non-Formulary Medication 1 vial Q4HRS NEB ; Start 06/13/17 at 20:00; Status UNV Albuterol Sulfate (Ventolin Neb Soln) 2.5 mg PRN Q4HRS PRN NEB SHORTNESS OF BREATH Last administered on 06/17/17 00:03; Start 06/13/17 at 17:30 Escitalopram Oxalate (Lexapro) 10 mg DAILY PO Last administered on 06/16/17 08 :29; Start 06/14/17 at 09:00 Lorazepam (Ativan) 0.5 mg PRN Q4HRS PRN PO ANXIETY / AGITATION Last administered on 06/16/17 23:15; Start 06/13/17 at 19:30 Regadenoson (Lexiscan) 0.4 mg 1X ONCE IV Last administered on 06/14/17 10:21 ; Start 06/14/17 at 09:00; Stop 06/14/17 at 09:01; Status DC Clarithromycin (Biaxin) 500 mg BID PO Last administered on 06/16/17 23:15; Start 06/15/17 at 13:00 Lidocaine (Lidoderm) 2 patch DAILY TD Last administered on 06/17/17t 08:36; Start 06/15/17 at 13:00 Pantoprazole Sodium (Protonix) 40 mg BIDAC PO Last administered on 06/16/17t 16 :40; Start 06/15/17 at 16:30 Ondansetron HCl (Zofran) 4 mg PRN Q6HRS PRN IV NAUSEA/VOMITING; Start 06/17/17 at 07:00; Stop 06/18/17 at 06:59 Fentanyl Citrate (Fentanyl 2ml Vial) 25 mcg PRN Q5MIN PRN IV MILD PAIN; Start 06/17/17 at 07:00; Stop 06/18/17 at 06:59 Fentanyl Citrate (Fentanyl 2ml Vial) 50 mcg PRN Q5MIN PRN IV MODERATE PAIN; Start 06/17/17 at 07:00; Stop 06/18/17 at 06:59 Morphine Sulfate 1 mg PRN Q10MIN PRN IV SEVERE PAIN; Start 06/17/17 at 07:00; Stop 06/18/17 at 06:59 Ringer's Solution 1,000 ml @ 30 mls/hr Q24H IV ; Start 06/17/17 at 07:00; Stop 06/17/17 at 18:59 Lidocaine HCl 2 ml PRN 1X PRN ID PRIOR TO IV START; Start 06/17/17 at 07:00; Stop 06/18/17 at 06:59 Hydromorphone HCl (Dilaudid) 0.5 mg PRN Q10MIN PRN IV SEV PAIN, Second choice; Start 06/17/17 at 07:00; Stop 06/18/17 at 06:59 Prochlorperazine Edisylate (Compazine) 5 mg PACU PRN PRN IV NAUSEA, MRX1; Start 06/17/17 at 07:00; Stop 06/18/17 at 06:59 Active Scripts Active Hydrocodone-Apap 5-325 (Hydrocodone Bit/Acetaminophen) 1 Each Tablet 1 Tab PO PRN Q4H PRN 30 Days Tessalon Perle (Benzonatate) 100 Mg Capsule 100 Mg PO TID PRN Reported Tylenol (Acetaminophen) 325 Mg Tablet 2 Tab PO PRN Q4HRS Albuterol Sulfate Conc Neb Soln (Albuterol Sulfate) 2.5 Mg/0.5 Ml Vial.neb 1 Vial NEB Q4HRS Proair Hfa Inhaler (Albuterol Sulfate) 8.5 Gm Hfa.aer.ad 1 Puff INH PRN Q4HRS PRN Duoneb 0.5-3(2.5) Mg/3 Ml (Albuterol/Ipratropium) 3 Ml Ampul.neb 3 Ml NEB QID Ethambutol Hcl 400 Mg Tablet 800 Mg DAILY Rifampin 300 Mg Capsule 300 Mg BID Escitalopram Oxalate 10 Mg Tablet 10 Mg DAILY Temazepam 15 Mg Capsule 1 Cap HS Vitals/I & O Vital Sign - Last 24 Hours 06/16/17 06/16/17 06/16/17 06/16/17 10:58 11:19 15:00 15:11 Temp 98.5 97.5 98.5 97.5 Pulse 71 81 Resp 19 20 B/P (MAP) 84/50 (61) 95/59 (71) Pulse Ox 93 98 O2 Delivery Nasal Cannula Room Air Room Air Nasal Cannula O2 Flow Rate 2.0 2.0 06/16/17 06/16/17 06/16/17 06/16/17 17:49 19:00 19:22 20:00 Temp 98.4 98.4 Pulse 80 Resp 22 B/P (MAP) 93/63 (73) Pulse Ox 90 95 O2 Delivery Room Air Nasal Cannula Nasal Cannula Room Air O2 Flow Rate 2.0 2.0 2.0 06/16/17 06/16/17 06/17/17 06/17/17 23:00 23:15 00:03 00:15 Temp 98.2 98.2 Pulse 84 Resp 24 21 B/P (MAP) 100/63 (75) Pulse Ox 94 O2 Delivery Nasal Cannula Room Air Room Air Room Air O2 Flow Rate 2.0 06/17/17 06/17/17 06/17/17 06/17/17 03:00 07:25 08:00 08:10 Temp 98.6 98.1 98.6 98.1 Pulse 76 82 Resp 20 20 B/P (MAP) 92/58 (69) 97/65 (76) Pulse Ox 91 96 98 O2 Delivery Room Air Room Air Room Air Nasal Cannula O2 Flow Rate 2.0 Intake and Output 06/16/17 06/16/17 06/17/17 15:00 23:00 07:00 Intake Total 440 ml 300 ml Balance 440 ml 300 ml MANI MCHUGH MD Jun 17, 2017 10:58
[2017-06-17 11:28] VITALS: BP 85/60
[2017-06-17] MEDS ORDERED: PROPOFOL 20 ML IV ONE (11:49)
[2017-06-17] MEDS ORDERED: LIDOCAINE 2% PF Vial for OR 5 ML VIAL. ONE (11:49)
[2017-06-17] MEDS: IV RINGERS,LACTATED 1000ML 1,000 ML IV SCH ×2 (12:00→14:52)
[2017-06-17] MEDS ORDERED: MIDAZOLAM HCL/PF 2 MG/2 ML VIAL. IV PRN (12:00)
[2017-06-17] MEDS ORDERED: ePHEDrine PF IN SALINE 50 MG/5 ML DISP.SYRIN IV ONE (13:05)
--- NOTE | 2017-06-17 13:29 | PDOC4 ---
PROCEDURE Procedure EGD Indications: NCCP Meds: per anesthesia. Findings: E--<grade I esophagitis at 43cm. G--Non-specific erythema, antrum. D--normal to second portion. Radha. well. IMP: Reflux, low-grade, but possibly contributing to syndrome. REC: Continue PPI; would give at least 2-3 months to gauge effect on chest pain admissions. OK to dismiss at your discretion. Thanks. DEBORAH ROSAS MD Jun 17, 2017 13:29
[2017-06-17] MEDS: LORazepam 0.5 MG TABLET PO PRN ×2 (15:05→23:26)
[2017-06-17 15:30] VITALS: BP 104/66
[2017-06-17 19:15] VITALS: BP 94/68
[2017-06-17 23:15] VITALS: BP 98/66
[2017-06-17] MEDS: TEMAZEPAM 15 MG CAPSULE PO SCH (23:24)
[2017-06-18 03:51] VITALS: BP 97/63
[2017-06-18] MEDS: ALBUTEROL SULFATE 2.5 MG/3 ML NEBU. NEB PRN (03:55)
[2017-06-18 07:00] VITALS: BP 102/61
[2017-06-18] MEDS: IPRATRPIUM/ALBUTEROL 0.5/2.5MG 3 ML NEBU. NEB SCH ×2 (07:23→12:02)
[2017-06-18] MEDS: ESCITALOPRAM 10 MG TABLET. PO SCH (08:04)
[2017-06-18] MEDS: CLARITHROMYCIN 500 MG TABLET. PO SCH (08:04)
[2017-06-18] MEDS: riFAMpin 300 MG CAPSULE. PO SCH (08:04)
[2017-06-18] MEDS: LIDOCAINE (700MG/PATCH) PATCH. TD SCH (08:04)
[2017-06-18] MEDS: PANTOPRAZOLE 40 MG TABLET.DR. PO SCH (08:04)
[2017-06-18] MEDS: ETHAMBUTOL HCL 400 MG TABLET PO SCH (08:04)
--- NOTE | 2017-06-18 10:10 | PDOC ---
Objective: Vital Signs: Vital Signs Date Time Temp Pulse Resp B/P (MAP) Pulse Ox O2 Delivery O2 Flow Rate FiO2 06/18/17 07:24 100 Nasal Cannula 2.0 06/18/17 07:00 97.8 80 20 102/61 (75) 97.8 Imaging: EGD 06/17/17 E--<grade I esophagitis at 43cm. G--Non-specific erythema, antrum. D--normal to second portion. IMP: Reflux, low-grade, but possibly contributing to syndrome. PE: GEN: NAD NEURO/PSYCH: sleeping, did not awaken A/P: Chest pain, epigastric pain -EGD as above w/ mild reflux -- Continue PPI QD, DC per primary. ANGELLA GUARDADO Jun 18, 2017 10:10
[2017-06-18 11:00] VITALS: BP 93/68
[2017-06-18] MEDS: LORazepam 0.5 MG TABLET PO PRN (11:08)
--- NOTE | 2017-06-18 12:01 | PDOC3 ---
Discharge Summary Visit Information Date of Admission: Jun 13, 2017 Date of Discharge: Jun 18, 2017 Admitting Diagnosis: chest pain Admitting Diagnosis Comment: Admitted with severe chest pain for which he was seen by the cardiology team as well as GI team Final Diagnosis Reflux esophagitis Brief Hospital Course Allergies Allergies Coded Allergies Type Severity Reaction Last Updated Verified No Known Drug Allergies 06/17/17 No Vital Signs Vital Signs Date Time Temp Pulse Resp B/P (MAP) Pulse Ox O2 Delivery O2 Flow Rate FiO2 06/18/17 11:00 98.2 85 20 93/68 (76) 98 Nasal Cannula 2.0 98.2 Lab Results Laboratory Tests Test 06/17/17 05:15 White Blood Count 5.1 x10^3/uL (4.0-11.0) Red Blood Count 3.89 x10^6/uL (4.30-5.70) Hemoglobin 12.4 g/dL (13.0-17.5) Hematocrit 36.4 % (39.0-53.0) Mean Corpuscular Volume 93 fL (79-100) Mean Corpuscular Hemoglobin 32 pg (25-35) Mean Corpuscular Hemoglobin Concent 34 g/dL (31-37) Red Cell Distribution Width 13.5 % (11.5-14.5) Platelet Count 239 x10^3/uL (140-400) Sodium Level 141 mmol/L (136-145) Potassium Level 3.9 mmol/L (3.5-5.1) Chloride Level 103 mmol/L (98-107) Carbon Dioxide Level 33 mmol/L (21-32) Anion Gap 5 (6-14) Blood Urea Nitrogen 16 mg/dL (8-26) Creatinine 0.7 mg/dL (0.7-1.3) Estimated GFR (Cockcroft-Gault) 113.9 Glucose Level 93 mg/dL (70-99) Calcium Level 9.3 mg/dL (8.5-10.1) Brief Hospital Course Mr. Pino is a 62 old [sex] who presented with chest pain Has three sets of cardiac enzymes that were negative He underwent Nuclear stress test which was negative for reversible ischemia He underwent EGD which showed esophagitis that was mild and the Gta recommended prolonged course of PP Has had CT Angio of the chest which was negative for pulmonary embolism Discharge Information Scheduled Acetaminophen (Tylenol), 2 TAB PO PRN Q4HRS, (Reported) Albuterol Sulfate (Albuterol Sulfate Conc Neb Soln), 1 VIAL NEB Q4HRS, (Reported ) Escitalopram Oxalate (Escitalopram Oxalate), 10 MG DAILY, (Reported) Ethambutol Hcl (Ethambutol Hcl), 800 MG DAILY, (Reported) Ipratropium/Albuterol Sulfate (Duoneb 0.5-3(2.5) Mg/3 Ml), 3 ML NEB QID, ( Reported) Rifampin (Rifampin), 300 MG BID, (Reported) Temazepam (Temazepam), 1 CAP HS, (Reported) Scheduled PRN Albuterol Sulfate (Proair Hfa Inhaler), 1 PUFF INH PRN Q4HRS PRN for SHORTNESS OF BREATH, (Reported) Benzonatate (Tessalon Perle), 100 MG PO TID PRN for COUGH Hydrocodone Bit/Acetaminophen (Hydrocodone-Apap 5-325 ), 1 TAB PO PRN q4h PRN for PAIN Patient Instructions Patient Instructions The patient was discharged back to [facility] to continue PPI for three months continue with lorazepam for anxiety Continue with lidoderm and hydrocodone for pain Temazepam for insomnia Refampin, ethambutol and 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
== END 2017-06-18 13:21 | DRG 392 ==
LOC: ER 11:22 → 6 SOUTH 14:45 → OBSVTOIN 06-17 13:22
PROVIDERS: ADMIT Internal Medicine; ATTEND Internal Medicine
PROC: 0DJ08ZZ Inspection of Upper Intestinal Tract, Via Natural or Artificial Opening Endoscopic (ICD-10-PCS; principal; 2017-06-17 12:30)
DX: K21.0 Gastro-esophageal reflux disease with esophagitis (principal); I42.9 Cardiomyopathy, unspecified; E44.0 Moderate protein-calorie malnutrition; R64 Cachexia; E03.9 Hypothyroidism, unspecified; F41.9 Anxiety disorder, unspecified; G47.00 Insomnia, unspecified; I48.0 Paroxysmal atrial fibrillation; I50.9 Heart failure, unspecified; R62.7 Adult failure to thrive; Z79.899 Other long term (current) drug therapy; Z80.1 Family history of malignant neoplasm of trachea, bronchus and lung; J44.9 Chronic obstructive pulmonary disease, unspecified
CPT/HCPCS: 36415; 71010; 78452; 80048; 80076; 81001; 82553; 83690; 83735; 83880; 84443; 84484; 85027; 85610; 87070; 87086; 87205; 93005; 93017; 94250; 94640; 94760; 96374; 96375; 96376; A9500; G0378; G0379; G0481; J2001; J2704; J2785; J7120; J7613; J7620

== ENCOUNTER 2017-11-10 02:48 | Emergency (ER) | payer OTHER ==
[~2017-11-10] VITALS: Ht 172.7 cm; Wt 42.6 kg
[~2017-11-10 02:48] MED LIST changes: +ASPI-482 PO; +BENZ-8 PO; +CITA10TA8 PO; +CYCL10TA2 PO; +ETHA400T PO; +LEXAPRO10 MG PO; +LORA0.5T PO; +PANT40TA3 PO; +POLY17PO29 PO
[2017-11-10] MEDS ORDERED: IPRATRPIUM/ALBUTEROL 0.5/2.5MG 3 ML NEBU. ONE (02:53)
--- NOTE | 2017-11-10 03:08 | PHYS DOC ---
Past Medical History Past Medical History: COPD, Depression, Pneumonia Additional Past Medical Histor: CARDIOMYOPATHY, MAC, STATES "SOME SORT OF TB BLAH BLAH BLAH" Past Surgical History: No Surgical History, Other Additional Past Surgical Histo: bronchoscopy Alcohol Use: Occasionally Drug Use: None Adult General Chief Complaint Chief Complaint: DYSPNEA/RESPIRATOY DISTRESS HPI HPI Patient is a 62 year old male who presents with shortness of breath. He states he had a coughing spell around 9:30 and started feeling short of breath. He called his respiratory therapist company who instructed him to do a breathing treatment and some inhalers. He states he did one, but was still feeling soa. He then called 911 who cam and gave him 1 breathing treatment and that made him feel much better. He states his 02 sat was around 87% upon arrival by EMS. He had some chest discomfort but he states that's because of his coughing attack. He denies any chest pain currently. He states he does not have any pain or shortness of breath now after his second inhaler in the ER. He was recently discharged from the hospital but was unable to fill his prednisone. Review of Systems Review of Systems Constitutional: Denies fever or chills [] Eyes: Denies change in visual acuity, redness, or eye pain [] HENT: Denies nasal congestion or sore throat [] Respiratory: Denies cough or shortness of breath [] Cardiovascular: No additional information not addressed in HPI [] GI: Denies abdominal pain, nausea, vomiting, bloody stools or diarrhea [] : Denies dysuria or hematuria [] Musculoskeletal: Denies back pain or joint pain [] Integument: Denies rash or skin lesions [] Neurologic: Denies headache, focal weakness or sensory changes [] Endocrine: Denies polyuria or polydipsia [] All other systems were reviewed and found to be within normal limits, except as documented in this note. Current Medications Current Medications Current Medications Medications (Trade) Dose Ordered Sig/Ken Start Time Stop Time Status Last Admin Dose Admin Albuterol/ Ipratropium (Duoneb) 3 ml STK-MED ONCE 11/10/17 02:53 11/10/17 02:54 DC Prednisone (Prednisone) 50 mg 1X ONCE 11/10/17 03:30 11/10/17 03:31 DC 11/10/17 03:20 50 MG Allergies Allergies Allergies Coded Allergies Type Severity Reaction Last Updated Verified No Known Drug Allergies 06/17/17 No Physical Exam Physical Exam Constitutional: Well developed, well nourished, no acute distress, non-toxic appearance. [] HENT: Normocephalic, atraumatic, bilateral external ears normal, oropharynx moist, no oral exudates, nose normal. [] Eyes: PERRLA, EOMI, conjunctiva normal, no discharge. [] Neck: Normal range of motion, no tenderness, supple, no stridor. [] Cardiovascular:Heart rate regular rhythm, no murmur [] Lungs & Thorax: Bilateral breath sounds at the bases with moderate expiratory wheezing Abdomen: Bowel sounds normal, soft, no tenderness, no masses, no pulsatile masses. [] Skin: Warm, dry, no erythema, no rash. [] Back: No tenderness, no CVA tenderness. [] Extremities: No tenderness, no cyanosis, no clubbing, ROM intact, no edema. [] Neurologic: Alert and oriented X 3, normal motor function, normal sensory function, no focal deficits noted. [] Psychologic: Affect normal, judgement normal, mood normal. [] Current Patient Data Vital Signs Vital Signs Date Time Temp Pulse Resp B/P (MAP) Pulse Ox O2 Delivery O2 Flow Rate FiO2 11/10/17 05:17 76 18 91/59 (70) 94 Nasal Cannula 2.0 11/10/17 02:53 98.1 98.1 Lab Values Laboratory Tests Test 11/10/17 02:57 White Blood Count 6.9 x10^3/uL (4.0-11.0) Red Blood Count 4.74 x10^6/uL (4.30-5.70) Hemoglobin 15.1 g/dL (13.0-17.5) Hematocrit 45.3 % (39.0-53.0) Mean Corpuscular Volume 96 fL (79-100) Mean Corpuscular Hemoglobin 32 pg (25-35) Mean Corpuscular Hemoglobin Concent 33 g/dL (31-37) Red Cell Distribution Width 13.8 % (11.5-14.5) Platelet Count 312 x10^3/uL (140-400) Neutrophils (%) (Auto) 65 % (31-73) Lymphocytes (%) (Auto) 18 % (24-48) L Monocytes (%) (Auto) 13 % (0-9) H Eosinophils (%) (Auto) 4 % (0-3) H Basophils (%) (Auto) 1 % (0-3) Neutrophils # (Auto) 4.4 x10^3uL (1.8-7.7) Lymphocytes # (Auto) 1.2 x10^3/uL (1.0-4.8) Monocytes # (Auto) 0.9 x10^3/uL (0.0-1.1) Eosinophils # (Auto) 0.3 x10^3/uL (0.0-0.7) Basophils # (Auto) 0.0 x10^3/uL (0.0-0.2) Sodium Level 140 mmol/L (136-145) Potassium Level 3.8 mmol/L (3.5-5.1) Chloride Level 100 mmol/L (98-107) Carbon Dioxide Level 34 mmol/L (21-32) H Anion Gap 6 (6-14) Blood Urea Nitrogen 22 mg/dL (8-26) Creatinine 0.9 mg/dL (0.7-1.3) Estimated GFR (Cockcroft-Gault) 85.2 Glucose Level 96 mg/dL (70-99) Calcium Level 9.4 mg/dL (8.5-10.1) Total Bilirubin 0.6 mg/dL (0.2-1.0) Direct Bilirubin 0.3 mg/dL (0.0-0.2) H Aspartate Amino Transferase (AST) 43 U/L (15-37) H Alanine Aminotransferase (ALT) 38 U/L (16-63) Alkaline Phosphatase 65 U/L (46-116) Creatine Kinase 113 U/L (39-308) Creatine Kinase MB (Mass) 4.1 ng/mL (0.0-3.6) H Creatine Kinase MB Relative Index 3.6 % (0-4) Troponin I Quantitative < 0.017 ng/mL (0.000-0.055) FC-Flt-V-Type Natriuretic Peptide 569 pg/mL (0-124) H Total Protein 7.9 g/dL (6.4-8.2) Albumin 3.5 g/dL (3.4-5.0) Laboratory Tests 11/10/17 02:57 Laboratory Tests 11/10/17 02:57 EKG EKG EKG shows sinus rhythm with rate of 87 bpm without any concerning ST elevations or T-wave inversions, normal axis, QTC 470 ms, as interpreted by me. EKG is similar to one performed on11/04/2017 Radiology/Procedures Radiology/Procedures 1 view chest x-ray did not show any focal salt elevations, bony abnormalities, or pneumothorax, his lungs are hyperinflated, this chest x-ray appears similar to one performed on November 04, 2017, as interpreted by me. Impressions: COPD exacerbation Tobacco abuse Noncompliance of medications Course & Med Decision Making Course & Med Decision Making Pertinent Labs and Imaging studies reviewed. (See chart for details) Patient had an episode of chest discomfort after coughing. He has not had any chest pain since then. His EKG, chest x-ray, labs are nonacute. He received by mouth prednisone in the department. He feels better. He's been resting comfortably. He's been watched for approximately total of 3 hours. He is being discharged home. 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 Return precautions given. Dragon Disclaimer Dragon Disclaimer This electronic medical record was generated, in whole or in part, using a voice recognition dictation system. Departure Departure Impression: Primary Impression: COPD (chronic obstructive pulmonary disease) Disposition: 01 HOME, SELF-CARE Condition: STABLE Referrals: DEBORAH KEITH MD (PCP) Patient Instructions: Chronic Obstructive Pulmonary Disease Exacerbation, Easy- to-Read Additional Instructions: You were seen for shortness of breath. This improved with breathing treatments and prednisone. You will need to stop by here pharmacy and continuous pickling line pickler helper your prednisone that was prescribed to you on your discharge from the hospital recently. If the pharmacy does not have a script of prednisone for you, then you will need to speak with Dr. Keith and make sure that a prescription has been called in to you. Return ER for worsening shortness of breath, fevers, chest discomfort other concerns. TG AVALOS MD Nov 10, 2017 03:08
[2017-11-10 03:29] LABS: BASO % 1 % (0-3); EOS % 4 % (0-3); HEMATOCRIT 45.3 % (39.0-53.0); HEMOGLOBIN 15.1 g/dL (13.0-17.5); LYMPH # 1.2 x10^3/uL (1.0-4.8); LYMPH % 18 % (24-48); MEAN CORPUSCULAR HEMOGLOBIN 32 pg (25-35); MEAN CORPUSCULAR HGB CONC 33 g/dL (31-37); MEAN CORPUSCULAR VOLUME 96 fL (79-100); MONO % 13 % (0-9); NEUT % 65 % (31-73); PLATELET COUNT 312 x10^3/uL (140-400); RED BLOOD COUNT 4.74 x10^6/uL (4.30-5.70); RED CELL DISTRIBUTION WIDTH 13.8 % (11.5-14.5); WHITE BLOOD COUNT 6.9 x10^3/uL (4.0-11.0)
[2017-11-10] MEDS ORDERED: predniSONE 20 MG TABLET PO ONE (03:30)
[2017-11-10 03:39] LABS: CALCIUM 9.4 mg/dL (8.5-10.1); CREATININE 0.9 mg/dL (0.7-1.3); GFR 85.2; POTASSIUM 3.8 mmol/L (3.5-5.1)
[2017-11-10 03:45] LABS: ALBUMIN 3.5 g/dL (3.4-5.0); DIRECT BILIRUBIN 0.3 mg/dL (0.0-0.2); TOTAL BILIRUBIN 0.6 mg/dL (0.2-1.0); TOTAL PROTEIN 7.9 g/dL (6.4-8.2)
[2017-11-10 03:54] LABS: CKMB MASS 4.1 ng/mL (0.0-3.6)
[2017-11-10 05:28] VITALS: BP 106/77
--- NOTE | 2017-11-10 06:20 | EKG ---
[facility] [address] [place] [address] Test Date: 2017-11-10 Test Time: 02:57:59 Pat Name: DELFINO LEONARDO Department: Room: Gender: M Monitoring And Evaluation Advisor: : 1955 Requested By: TG AVALOS Order Number: [id number] Reading MD: Antoni Romano MD Measurements Intervals [place] Rate: 87 P: 90 MI: 182 QRS: 82 QRSD: 68 T: 79 QT: 346 QTc: 416 Interpretive Statements SINUS RHYTHM ATRIAL PREMATURE COMPLEX(ES) Electronically Signed On 11-17-2017 12:04:28 STRAIGHTENING PRESS OPERATOR HELPER by Antoni Romano MD
--- NOTE | 2017-11-10 07:18 | RAD ---
Portable chest, 11/10/2017: History: Shortness of breath, chest pain Comparison is made to a study from 11/04/2017. The heart size is normal. There is volume loss on the left with extensive pleural-parenchymal opacities most prominent over the apex and laterally in the left base. The findings are unchanged and are compatible with pleural-parenchymal scarring. There is a lesser degree of scarring on the right. No superimposed acute infiltrate is seen. There is no evidence of pleural fluid or pneumothorax. IMPRESSION: 1. Emphysema with pleural-parenchymal scarring, greatest on the left. 2. No significant change since 11/04/2017.
== END 2017-11-10 06:00 | disposition home or self-care (01) ==
LOC: ER 02:48
DX: J44.1 Chronic obstructive pulmonary disease with (acute) exacerbation (principal); Z91.14 Patient's other noncompliance with medication regimen; F17.200 Nicotine dependence, unspecified, uncomplicated
CPT/HCPCS: 36415; 71010; 80048; 80076; 82553; 83880; 84484; 85025; 93005; 94640; 99285; J7512

== ENCOUNTER 2017-11-14 15:27 | Inpatient (IN) | payer OTHER ==
[~2017-11-14] VITALS: Ht 170.2 cm; Wt 47.4 kg
[2017-11-14] MEDS ORDERED: IPRATRPIUM/ALBUTEROL 0.5/2.5MG 3 ML NEBU. ONE (15:29)
[2017-11-14] MEDS ORDERED: methylPREDNISolone SOD SUCC PF 125 MG/2 ML VIAL. ONE (15:43)
[2017-11-14] MEDS ORDERED: IPRATROPIUM BROMIDE 0.5 MG/2.5 ML NEBU. NEB ONE (15:45)
[2017-11-14] MEDS ORDERED: methylPREDNISolone SOD SUCC PF 125 MG/2 ML VIAL. IV ONE (15:45)
--- NOTE | 2017-11-14 15:48 | PHYS DOC ---
Past Medical History Past Medical History: COPD, Depression, Pneumonia Additional Past Medical Histor: CARDIOMYOPATHY, MAC Past Surgical History: No Surgical History, Other Additional Past Surgical Histo: bronchoscopy Alcohol Use: Occasionally Drug Use: None Adult General Chief Complaint Chief Complaint: SHORTNESS OF BREATH HPI HPI Patient is a 62 year old M who presents with rest or failure and COPD exacerbation. 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 Epstein. Patient has a significant smoking history however he states he only smokes 3 cigarettes today. Patient had worsening shortness of breath and difficult breathing with a productive cough and yellow sputum. Patient denies any fevers. Patient denies any chest pain. She did multiple procedures to home with not much success. Patient called EMS and EMS placed the patient on CPAP. Review of Systems Review of Systems GEN: Denies fevers, chills, sweats HEENT: Denies blurred vision, sore throat CV: Denies chest pain RESP: Shortness of breath GI: Denies n/v/d NEURO: Denies confusion, dizziness MSK: Denies weakness, joint pain/swelling All other systems were reviewed and found to be within normal limits, except as documented in this note. Current Medications Current Medications Current Medications Medications (Trade) Dose Ordered Sig/Ken Start Time Stop Time Status Last Admin Dose Admin Albuterol/ Ipratropium (Duoneb) 3 ml STK-MED ONCE 11/14/17 15:29 11/14/17 15:30 DC Azithromycin 250 ml @ 250 mls/hr 1X ONCE 11/14/17 16:30 11/14/17 17:29 Ceftriaxone Sodium 50 ml @ 100 mls/hr 1X ONCE 11/14/17 16:30 11/14/17 16:59 Ipratropium [place] (Atrovent) 0.5 mg 1X ONCE 11/14/17 15:45 11/14/17 15:46 DC 11/14/17 15:45 0.5 MG Methylprednisolone Sodium Succinate (SOLU-Medrol 125MG VIAL) 125 mg STK-MED ONCE 11/14/17 15:43 11/14/17 15:44 DC Allergies Allergies Allergies Coded Allergies Type Severity Reaction Last Updated Verified No Known Drug Allergies 06/17/17 No Physical Exam Physical Exam GEN.: Moderate distress. Alert and oriented. HEENT: Head is normocephalic, atraumatic NECK: Supple. LUNGS: No breath sounds at bases bilaterally, and apex faint inspiratory and expiratory wheezes heard, tachypnea. HEART: RRR, S1, S2 present. Peripheral pulses intact ABDOMEN: Soft, nontender. Positive bowel sounds. EXTREMITIES: Without any cyanosis. NEUROLOGIC: Normal speech, normal tone PSYCHIATRIC: Normal affect, normal mood. SKIN: No ulcerations Current Patient Data Vital Signs Vital Signs Date Time Temp Pulse Resp B/P (MAP) Pulse Ox O2 Delivery O2 Flow Rate FiO2 11/14/17 16:02 98 Room Air 11/14/17 15:29 97.8 90 24 106/67 (80) 97.8 Lab Values Laboratory Tests Test 11/14/17 15:43 11/14/17 16:05 O2 Saturation 97 % (92-99) Arterial Blood pH Pending Arterial Blood pCO2 at Patient Temp Pending Arterial Blood pO2 at Patient Temp 101 mmHg (65-108) Arterial Blood HCO3 26 mmol/L (21-28) Arterial Blood Base Excess 1 mmol/L (-3-3) FiO2 30.0 White Blood Count 8.4 x10^3/uL (4.0-11.0) Red Blood Count 4.44 x10^6/uL (4.30-5.70) Hemoglobin 14.0 g/dL (13.0-17.5) Hematocrit 43.1 % (39.0-53.0) Mean Corpuscular Volume 97 fL (79-100) Mean Corpuscular Hemoglobin 32 pg (25-35) Mean Corpuscular Hemoglobin Concent 33 g/dL (31-37) Red Cell Distribution Width 14.2 % (11.5-14.5) Platelet Count 357 x10^3/uL (140-400) Neutrophils (%) (Auto) 71 % (31-73) Lymphocytes (%) (Auto) 16 % (24-48) L Monocytes (%) (Auto) 9 % (0-9) Eosinophils (%) (Auto) 3 % (0-3) Basophils (%) (Auto) 1 % (0-3) Neutrophils # (Auto) 5.9 x10^3uL (1.8-7.7) Lymphocytes # (Auto) 1.3 x10^3/uL (1.0-4.8) Monocytes # (Auto) 0.8 x10^3/uL (0.0-1.1) Eosinophils # (Auto) 0.3 x10^3/uL (0.0-0.7) Basophils # (Auto) 0.1 x10^3/uL (0.0-0.2) Sodium Level 138 mmol/L (136-145) Potassium Level 3.9 mmol/L (3.5-5.1) Chloride Level 100 mmol/L (98-107) Carbon Dioxide Level 32 mmol/L (21-32) Anion Gap 6 (6-14) Blood Urea Nitrogen 11 mg/dL (8-26) Creatinine 0.7 mg/dL (0.7-1.3) Estimated GFR (Cockcroft-Gault) 113.9 BUN/Creatinine Ratio 16 (6-20) Glucose Level 94 mg/dL (70-99) Calcium Level 9.0 mg/dL (8.5-10.1) Total Bilirubin 0.2 mg/dL (0.2-1.0) Aspartate Amino Transferase (AST) 41 U/L (15-37) H Alanine Aminotransferase (ALT) 43 U/L (16-63) Alkaline Phosphatase 59 U/L (46-116) Total Protein 7.7 g/dL (6.4-8.2) Albumin 3.3 g/dL (3.4-5.0) L Albumin/Globulin Ratio 0.8 (1.0-1.7) L Laboratory Tests 11/14/17 16:05 Laboratory Tests 11/14/17 16:05 EKG EKG 1530: EKG shows normal sinus rhythm rate of 84 no STEMI[] Radiology/Procedures Radiology/Procedures Chest x-ray NAD[] Course & Med Decision Making Course & Med Decision Making Pertinent Labs and Imaging studies reviewed. (See chart for details) ED course: Patient was seen and examined emergency room upon arrival septic workup was ordered and patient was placed on BiPAP upon arrival to emergency room secondary to severe a story distress Patient patient is resting consulted on BiPAP breathing much better Explained the patient the plan to admit and updated him on lab work and chest x- ray results 1630: Discussed CC/HP/PMH with Dr. Pickens and recommends admit and consult pulmonology MDM: After reviewing the chart, CC/HPI/PMH, physical exam, [lab results], [ radiological results], I think the patient is having acute respiratory failure secondary to COPD requiring BiPAP and admission to ICU for further outpatient management. Given the patient's significant history of COPD we'll start the patient on antibiotics for atypical pneumonia. Critical care time was 35 minutes exclusive of procedures. [] Dragon Disclaimer Dragon Disclaimer This electronic medical record was generated, in whole or in part, using a voice recognition dictation system. Departure Departure Impression: Primary Impression: Acute and chronic respiratory failure Additional Impressions: COPD exacerbation Atypical pneumonia Disposition: ADMITTED INPATIENT Admitting Physician: Chucho Pickens Condition: GUARDED Referrals: CHUCHO PICKENS MD (PCP) Problem Qualifiers ELLIE SABILLON DO Nov 14, 2017 15:48
--- NOTE | 2017-11-14 16:01 | RAD ---
Single view of the Chest 11/14/2017 5:38 PM Indication: copd exacerbation Comparison: Chest radiograph November 10, 2017 Findings: No pneumothorax or pleural effusion is seen. Extensive emphysematous changes multifocal pleural parenchymal scarring is seen. Left apical scarring and pleural thickening is noted. Possible pleural placed nodular opacity along the left lateral inferior pleura is similar. Heart size is stable. No acute osseous changes are seen. Impression: Stable radiographic appearance of the chest. An acute cardiopulmonary process or change from prior study is not identified.
--- NOTE | 2017-11-14 16:08 | EKG ---
[facility] [address] [place] [address] Test Date: 2017-11-14 Test Time: 15:29:55 Pat Name: DELFINO LEONARDO Department: Room: Gender: M Bull Rider: : 1955 Requested By: BOBBY REARDON Order Number: [id number] Reading MD: Tk Craft Measurements Intervals [place] Rate: 84 P: 116 ND: 186 QRS: 78 QRSD: 68 T: 59 QT: 332 QTc: 395 Interpretive Statements SINUS RHYTHM QRS(T) CONTOUR ABNORMALITY CONSISTENT WITH POSSIBLE ANTEROSEPTAL INFARCT PROBABLY OLD CONSIDER INFERIOR MYOCARDIAL DAMAGE ABNORMAL ECG RI6.01 Compared to ECG 11/04/2017 15:25:23 Electronically Signed On 11-28-2017 10:56:34 SLAT BASKET MAKER MACHINE by Tk Craft
[2017-11-14 16:13] LABS: HCO3 ABG 26 mmol/L (21-28); PO2 ABG 101 mmHg (65-108); SAT O2 ABG 97 % (92-99)
[2017-11-14 16:15] LABS: BASO # 0.1 x10^3/uL (0.0-0.2); BASO % 1 % (0-3); EOS % 3 % (0-3); HEMATOCRIT 43.1 % (39.0-53.0); LYMPH # 1.3 x10^3/uL (1.0-4.8); LYMPH % 16 % (24-48); MEAN CORPUSCULAR HEMOGLOBIN 32 pg (25-35); MEAN CORPUSCULAR HGB CONC 33 g/dL (31-37); MEAN CORPUSCULAR VOLUME 97 fL (79-100); MONO % 9 % (0-9); NEUT % 71 % (31-73); PLATELET COUNT 357 x10^3/uL (140-400); RED BLOOD COUNT 4.44 x10^6/uL (4.30-5.70); RED CELL DISTRIBUTION WIDTH 14.2 % (11.5-14.5); WHITE BLOOD COUNT 8.4 x10^3/uL (4.0-11.0)
[2017-11-14 16:27] LABS: CREATININE 0.7 mg/dL (0.7-1.3); GFR 113.9; POTASSIUM 3.9 mmol/L (3.5-5.1)
[2017-11-14] MEDS ORDERED: AZITHRMYCN 500MG IVPB FOR OMNI 250 ML IV ONE (16:30)
[2017-11-14 16:35] LABS: ALBUMIN 3.3 g/dL (3.4-5.0); ALBUMIN/GLOBULIN RATIO 0.8 (1.0-1.7); TOTAL BILIRUBIN 0.2 mg/dL (0.2-1.0); TOTAL PROTEIN 7.7 g/dL (6.4-8.2)
[2017-11-14] MEDS ORDERED: ONDANSETRON PF 4 MG/2 ML VIAL. IV PRN (16:45)
[2017-11-14] MEDS ORDERED: fentaNYL PF VIAL 100 MCG/2 ML VIAL IV PRN (16:45)
[2017-11-14] MEDS ORDERED: IV NORMAL SALINE 1000ML BAG 1,000 ML IV ONE (19:00)
[2017-11-14] MEDS: IPRATRPIUM/ALBUTEROL 0.5/2.5MG 3 ML NEBU. NEB SCH ×2 (20:00→20:09)
[2017-11-14 21:32] VITALS: BP 102/58
[2017-11-14 23:40] VITALS: BP 93/66
[2017-11-15 03:30] VITALS: BP 119/75
[2017-11-15] MEDS: ALBUTEROL SULFATE 2.5 MG/3 ML NEBU. NEB PRN (04:02)
[2017-11-15 05:37] LABS: BASO % 0 % (0-3); EOS % 0 % (0-3); HEMATOCRIT 41.7 % (39.0-53.0); HEMOGLOBIN 13.6 g/dL (13.0-17.5); LYMPH # 0.4 x10^3/uL (1.0-4.8); LYMPH % 12 % (24-48); MEAN CORPUSCULAR HEMOGLOBIN 32 pg (25-35); MEAN CORPUSCULAR HGB CONC 33 g/dL (31-37); MEAN CORPUSCULAR VOLUME 97 fL (79-100); MONO % 3 % (0-9); NEUT % 84 % (31-73); PLATELET COUNT 333 x10^3/uL (140-400); RED BLOOD COUNT 4.29 x10^6/uL (4.30-5.70); RED CELL DISTRIBUTION WIDTH 14.3 % (11.5-14.5); WHITE BLOOD COUNT 3.6 x10^3/uL (4.0-11.0)
[2017-11-15 06:14] LABS: CALCIUM 9.1 mg/dL (8.5-10.1); CREATININE 0.6 mg/dL (0.7-1.3); GFR 136.1; POTASSIUM 4.4 mmol/L (3.5-5.1)
[2017-11-15 07:00] VITALS: BP 87/69
[2017-11-15] MEDS: IPRATRPIUM/ALBUTEROL 0.5/2.5MG 3 ML NEBU. NEB SCH ×3 (07:49→15:32)
[2017-11-15] MEDS ORDERED: BENZONATATE 100 MG CAPSULE. PO PRN (09:30)
--- NOTE | 2017-11-15 09:44 | PDOC1 ---
History and Physical Date of Admission Date of Admission DATE: 11/14/17 Identification/Chief Complaint Chief Complaint Short of breath, weakness Problems: Source Source: Patient History of Present Illness History of Present Illness Pt was recently admitted to the hospital last week and was discharged on for COPD exacerbation. He was sent home on Prednisone 60mg x7days and no antibiotics. He says that he has continued to feel short of breath with weakness over the past week. Wasn't really doing much other than sitting around at home. Last night went to the bar to meet somebody to give him money; person never showed up and after a couple of hours was having increased difficulty breathing. Came home and had to call EMS who placed pt on Bipap. Pt is feeling better this morning, although still feeling week and short of air. Past Medical History Cardiovascular: No pertinent hx, Other Pulmonary: COPD, Other (MAC) CENTRAL NERVOUS SYSTEM: Other GI: No pertinent hx Heme/Onc: No pertinent hx Hepatobiliary: No pertinent hx Psych: Anxiety, Depression Musculoskeletal: No pain Rheumatologic: No pertinent hx Infectious disease: Other ENT: No pertinent hx Renal/: No pertinent hx Endocrine: No pertinent hx Dermatology: No pertinent hx Past Surgical History Past Surgical History: Other (Back Sx, Hemorrhoids) Family History Family History: Cancer Social History Smoke: <1 pack per day ALCOHOL: occassional Drugs: None, Other Current Problem List Problem List Problems Medical Problems: (1) Atypical pneumonia Status: Acute (2) COPD exacerbation Status: Acute Problems: Current Medications Current Medications Current Medications Albuterol/ Ipratropium (Duoneb) 3 ml STK-MED ONCE .ROUTE ; Start 11/14/17 at 15 :29; Stop 11/14/17 at 15:30; Status DC Ipratropium [place] (Atrovent) 0.5 mg 1X ONCE NEB Last administered on 15:45; Start 11/14/17 at 15:45; Stop 11/14/17 at 15:46; Status DC Methylprednisolone Sodium Succinate (SOLU-Medrol 125MG VIAL) 125 mg 1X ONCE IV Last administered on 11/14/17t 15:44; Start 11/14/17 at 15:45; Stop at 15:46; Status DC Methylprednisolone Sodium Succinate (SOLU-Medrol 125MG VIAL) 125 mg STK-MED ONCE .ROUTE ; Start 11/14/17 at 15:43; Stop 11/14/17 at 15:44; Status DC Azithromycin 250 ml @ 250 mls/hr 1X ONCE IV Last administered on 11/14/17 17:49; Start 11/14/17 at 16:30; Stop 11/14/17 at 17:29; Status DC Ceftriaxone Sodium 50 ml @ 100 mls/hr 1X ONCE IV Last administered on 16:50; Start 11/14/17 at 16:30; Stop 11/14/17 at 16:59; Status DC Ondansetron HCl (Zofran) 4 mg PRN Q8HRS PRN IV NAUSEA/VOMITING; Start at 16:45; Stop 11/15/17 at 16:44 Fentanyl Citrate (Fentanyl 2ml Vial) 50 mcg PRN Q1HR PRN IV PAIN; Start at 16:45; Stop 11/15/17 at 16:44 Albuterol/ Ipratropium (Duoneb) 3 ml RTQID NEB Last administered on 11/15/17 07:49; Start 11/14/17 at 17:00; Stop 11/15/17 at 16:59 Lorazepam (Ativan) 2 mg 1X ONCE IV Last administered on 11/14/17 16:50; Start 11/14/17 at 16:45; Stop 11/14/17 at 16:46; Status DC Lorazepam (Ativan) 2 mg 1X ONCE IV Last administered on 11/14/17 18:14; Start 11/14/17 at 18:15; Stop 11/14/17 at 18:16; Status DC Sodium Chloride 1,000 ml @ 1,000 mls/hr 1X ONCE IV Last administered on 11/14 18:58; Start 11/14/17 at 19:00; Stop 11/14/17 at 19:59; Status DC Albuterol Sulfate (Ventolin Neb Soln) 2.5 mg PRN QID PRN NEB SHORTNESS OF BREATH Last administered on 11/15/17 04:02; Start 11/15/17 at 03:30 Active Scripts Active Prednisone 10 Mg Tablet 60 Mg PO DAILY Cyclobenzaprine Hcl 10 Mg Tablet 5 Mg PO PRN Q6HRS PRN 14 Days Celexa (Citalopram Hydrobromide) 10 Mg Tablet 10 Mg PO DAILY 30 Days Benzonatate 100 Mg Capsule 100 Mg PO PRN TID PRN 14 Days Reported Ethambutol Hcl 400 Mg Tablet 800 Mg PO DAILY Tylenol (Acetaminophen) 325 Mg Tablet 2 Tab PO PRN Q6HRS PRN Albuterol Sulfate Conc Neb Soln (Albuterol Sulfate) 2.5 Mg/0.5 Ml Vial.neb 1 Vial NEB Q4HRS Proair Hfa Inhaler (Albuterol Sulfate) 8.5 Gm Hfa.aer.ad 1 Puff INH PRN Q4HRS PRN Duoneb 0.5-3(2.5) Mg/3 Ml (Albuterol/Ipratropium) 3 Ml Ampul.neb 3 Ml NEB QID Rifampin 300 Mg Capsule 300 Mg BID Temazepam 15 Mg Capsule 1 Cap HS Allergies Allergies: Coded Allergies: No Known Drug Allergies (Unverified , 06/17/17) ROS General: YES: Fatigue, No: Chills, Night Sweats PSYCHOLOGICAL ROS: No: Anxiety, Depression Eyes: No Decreased vision, No Eye Pain HEENT: No: Nasal congestion, Sore Throat ALLERGY AND IMMUNOLOGY: No: Hives, Post Nasal Drip Hematological and Lymphatic: No: Bleeding Problems, Blood Clots Breast: No New/Changing Breast Lumps, No Nipple discharge Respiratory: YES: Cough, Shortness of breath, Sputum Changes, Wheezing Cardiovascular: No Chest Pain, No Palpitations, No Edema Gastrointestinal: No Nausea, No Vomiting, No Abdominal Pain, No Diarrhea, No Constipation Genitourinary: No Dysuria, No Urgency Musculoskeletal: No Joint Pain, No Muscle Pain Neurological: Yes Weakness, No Numbness/Tingling Skin: No Rash, No Skin Lesion Changes Physical Exam General: Alert, Oriented X3, Cooperative, mild distress HEENT: Atraumatic, PERRLA, EOMI, Other (dry mucous membranes) Lungs: Other (some initial expiratory squeeks RUL that cleared after coughing) Heart: RRR, no rubs, no gallops, no murmurs Abdomen: Normal bowel sounds, Soft, No tenderness, No hepatosplenomegaly Extremities: No clubbing, No cyanosis, No edema Skin: No rashes, No breakdown, No significant lesion Neuro: Normal tone, Cranial nerves 3-12 NL Psych/Mental Status: Mental status NL, Other (pt week, depressed affect) Vitals Vitals Vital Signs Date Time Temp Pulse Resp B/P (MAP) Pulse Ox O2 Delivery O2 Flow Rate FiO2 11/15/17 07:52 99 Nasal Cannula 1.0 11/15/17 07:00 97.5 76 20 87/69 (75) 97.5 Labs Labs Laboratory Tests Test 11/14/17 15:43 11/14/17 16:05 11/15/17 04:15 11/15/17 04:45 O2 Saturation 97 % (92-99) Arterial Blood pO2 at Patient Temp 101 mmHg (65-108) Arterial Blood HCO3 26 mmol/L (21-28) Arterial Blood Base Excess 1 mmol/L (-3-3) FiO2 30.0 White Blood Count 8.4 x10^3/uL (4.0-11.0) 3.6 x10^3/uL (4.0-11.0) Red Blood Count 4.44 x10^6/uL (4.30-5.70) 4.29 x10^6/uL (4.30-5.70) Hemoglobin 14.0 g/dL (13.0-17.5) 13.6 g/dL (13.0-17.5) Hematocrit 43.1 % (39.0-53.0) 41.7 % (39.0-53.0) Mean Corpuscular Volume 97 fL (79-100) 97 fL (79-100) Mean Corpuscular Hemoglobin 32 pg (25-35) 32 pg (25-35) Mean Corpuscular Hemoglobin Concent 33 g/dL (31-37) 33 g/dL (31-37) Red Cell Distribution Width 14.2 % (11.5-14.5) 14.3 % (11.5-14.5) Platelet Count 357 x10^3/uL (140-400) 333 x10^3/uL (140-400) Neutrophils (%) (Auto) 71 % (31-73) 84 % (31-73) Lymphocytes (%) (Auto) 16 % (24-48) 12 % (24-48) Monocytes (%) (Auto) 9 % (0-9) 3 % (0-9) Eosinophils (%) (Auto) 3 % (0-3) 0 % (0-3) Basophils (%) (Auto) 1 % (0-3) 0 % (0-3) Neutrophils # (Auto) 5.9 x10^3uL (1.8-7.7) 3.0 x10^3uL (1.8-7.7) Lymphocytes # (Auto) 1.3 x10^3/uL (1.0-4.8) 0.4 x10^3/uL (1.0-4.8) Monocytes # (Auto) 0.8 x10^3/uL (0.0-1.1) 0.1 x10^3/uL (0.0-1.1) Eosinophils # (Auto) 0.3 x10^3/uL (0.0-0.7) 0.0 x10^3/uL (0.0-0.7) Basophils # (Auto) 0.1 x10^3/uL (0.0-0.2) 0.0 x10^3/uL (0.0-0.2) Sodium Level 138 mmol/L (136-145) 139 mmol/L (136-145) Potassium Level 3.9 mmol/L (3.5-5.1) 4.4 mmol/L (3.5-5.1) Chloride Level 100 mmol/L (98-107) 102 mmol/L (98-107) Carbon Dioxide Level 32 mmol/L (21-32) 30 mmol/L (21-32) Anion Gap 6 (6-14) 7 (6-14) Blood Urea Nitrogen 11 mg/dL (8-26) 14 mg/dL (8-26) Creatinine 0.7 mg/dL (0.7-1.3) 0.6 mg/dL (0.7-1.3) Estimated GFR (Cockcroft-Gault) 113.9 136.1 BUN/Creatinine Ratio 16 (6-20) Glucose Level 94 mg/dL (70-99) 134 mg/dL (70-99) Lactic Acid Level 2.4 mmol/L (0.4-2.0) Calcium Level 9.0 mg/dL (8.5-10.1) 9.1 mg/dL (8.5-10.1) Total Bilirubin 0.2 mg/dL (0.2-1.0) Aspartate Amino Transf (AST/SGOT) 41 U/L (15-37) Alanine Aminotransferase (ALT/SGPT) 43 U/L (16-63) Alkaline Phosphatase 59 U/L (46-116) Troponin I Quantitative < 0.017 ng/mL (0.000-0.055) EJ-[id number]-[id number]-Type Natriuretic Peptide 233 pg/mL (0-124) Total Protein 7.7 g/dL (6.4-8.2) Albumin 3.3 g/dL (3.4-5.0) Albumin/Globulin Ratio 0.8 (1.0-1.7) Laboratory Tests Test 11/14/17 15:43 11/14/17 16:05 11/15/17 04:15 11/15/17 04:45 O2 Saturation 97 % (92-99) Arterial Blood pO2 at Patient Temp 101 mmHg (65-108) Arterial Blood HCO3 26 mmol/L (21-28) Arterial Blood Base Excess 1 mmol/L (-3-3) FiO2 30.0 White Blood Count 8.4 x10^3/uL (4.0-11.0) 3.6 x10^3/uL (4.0-11.0) Red Blood Count 4.44 x10^6/uL (4.30-5.70) 4.29 x10^6/uL (4.30-5.70) Hemoglobin 14.0 g/dL (13.0-17.5) 13.6 g/dL (13.0-17.5) Hematocrit 43.1 % (39.0-53.0) 41.7 % (39.0-53.0) Mean Corpuscular Volume 97 fL (79-100) 97 fL (79-100) Mean Corpuscular Hemoglobin 32 pg (25-35) 32 pg (25-35) Mean Corpuscular Hemoglobin Concent 33 g/dL (31-37) 33 g/dL (31-37) Red Cell Distribution Width 14.2 % (11.5-14.5) 14.3 % (11.5-14.5) Platelet Count 357 x10^3/uL (140-400) 333 x10^3/uL (140-400) Neutrophils (%) (Auto) 71 % (31-73) 84 % (31-73) Lymphocytes (%) (Auto) 16 % (24-48) 12 % (24-48) Monocytes (%) (Auto) 9 % (0-9) 3 % (0-9) Eosinophils (%) (Auto) 3 % (0-3) 0 % (0-3) Basophils (%) (Auto) 1 % (0-3) 0 % (0-3) Neutrophils # (Auto) 5.9 x10^3uL (1.8-7.7) 3.0 x10^3uL (1.8-7.7) Lymphocytes # (Auto) 1.3 x10^3/uL (1.0-4.8) 0.4 x10^3/uL (1.0-4.8) Monocytes # (Auto) 0.8 x10^3/uL (0.0-1.1) 0.1 x10^3/uL (0.0-1.1) Eosinophils # (Auto) 0.3 x10^3/uL (0.0-0.7) 0.0 x10^3/uL (0.0-0.7) Basophils # (Auto) 0.1 x10^3/uL (0.0-0.2) 0.0 x10^3/uL (0.0-0.2) Sodium Level 138 mmol/L (136-145) 139 mmol/L (136-145) Potassium Level 3.9 mmol/L (3.5-5.1) 4.4 mmol/L (3.5-5.1) Chloride Level 100 mmol/L (98-107) 102 mmol/L (98-107) Carbon Dioxide Level 32 mmol/L (21-32) 30 mmol/L (21-32) Anion Gap 6 (6-14) 7 (6-14) Blood Urea Nitrogen 11 mg/dL (8-26) 14 mg/dL (8-26) Creatinine 0.7 mg/dL (0.7-1.3) 0.6 mg/dL (0.7-1.3) Estimated GFR (Cockcroft-Gault) 113.9 136.1 BUN/Creatinine Ratio 16 (6-20) Glucose Level 94 mg/dL (70-99) 134 mg/dL (70-99) Lactic Acid Level 2.4 mmol/L (0.4-2.0) Calcium Level 9.0 mg/dL (8.5-10.1) 9.1 mg/dL (8.5-10.1) Total Bilirubin 0.2 mg/dL (0.2-1.0) Aspartate Amino Transf (AST/SGOT) 41 U/L (15-37) Alanine Aminotransferase (ALT/SGPT) 43 U/L (16-63) Alkaline Phosphatase 59 U/L (46-116) Troponin I Quantitative < 0.017 ng/mL (0.000-0.055) JZ-Uci-G-Type Natriuretic Peptide 233 pg/mL (0-124) Total Protein 7.7 g/dL (6.4-8.2) Albumin 3.3 g/dL (3.4-5.0) Albumin/Globulin Ratio 0.8 (1.0-1.7) VTE Prophylaxis Ordered VTE Prophylaxis Devices: Yes VTE Pharmacological Prophylaxi: No Assessment/Plan Assessment/Plan Pt is a 62yo CM admitted for COPD Exacerbation 1)COPD Exacerbation- pt discharged last week for COPD Exacerbation and was discharged on Prednisone 60mg daily x 7 days. Pulmonary consulted in the ER. Did not treat pt with antibiotics last admission but he does continue to have productive sputum. Pt started on abx in ER. Will continue pt on Levaquin unless wanting to be changed by Pulmonary when they see him. Will likely need SNF on discharge if pt is agreeable 2)Hx MAC- pt continued on Rifampin and Ethambutol 3)Insomnia- pt continued on Temazepam 4)PEM- moderate MARCO MAS MD Nov 15, 2017 09:44
[2017-11-15] MEDS: riFAMpin 300 MG CAPSULE. PO SCH ×2 (10:20→20:59)
[2017-11-15] MEDS: ETHAMBUTOL HCL 400 MG TABLET PO SCH (10:20)
[2017-11-15] MEDS: CITALOPRAM 10 MG TABLET. PO SCH (10:20)
[2017-11-15 11:00] VITALS: BP 94/66
--- NOTE | 2017-11-15 12:27 | CONS ---
DATE OF CONSULTATION: ATTENDING PHYSICIAN: Dr. Keith. REASON FOR CONSULTATION: Dyspnea. HISTORY OF PRESENT ILLNESS: The patient is very well known to me. He is a 62-year-old who has history of severe chronic obstructive airway disease. He also has Mycobacterium avium infection. The patient has been on MAC treatment. He is not on home oxygen. He presented to the hospital with increasing shortness of breath. The patient has a cough with more yellow sputum production. Denied any fever, denied any chills. No chest pain, no headaches. No nausea, vomiting or diarrhea. He said he stopped taking his MAC medications 2 weeks ago for unclear reason. He still has a supply of prescription. His chest x-ray was reviewed by me. Overall, it looked stable. He had parenchymal scarring in the left upper lobe, which appears to be slightly better than since his July chest x-ray. He has some nodular opacity in the left lateral inferior portion of the left lower lobe which is also unchanged as well. Consultation requested for further evaluation and management. PAST MEDICAL HISTORY: Significant for history of COPD, history of Mycobacterium avium infection. He has been on treatment for at least past 1 year. PAST SURGICAL HISTORY: Back surgery and hemorrhoid surgery. FAMILY HISTORY: Cancer. SOCIAL HISTORY: Smoked less than 1 pack per day for at least 35-40 years. ALLERGIES: None. MEDICATIONS: Reviewed as listed in the MRAD including antibiotic Levaquin. REVIEW OF SYSTEMS: Twelve-point system obtained. Pertinent positives discussed in history of present illness, otherwise noncontributory. All systems that were negative were reviewed as well. PHYSICAL EXAMINATION: VITAL SIGNS: Shows a blood pressure of 94/66, afebrile, pulse ox 94% on 1 liter. HEENT: Sclerae nonicteric. NECK: Supple. LUNGS: With diminished breath sounds, no wheezing. CARDIOVASCULAR: Regular rate and rhythm. ABDOMEN: Soft, nontender. EXTREMITIES: With no pitting edema. LABORATORY DATA: Reviewed. White cell count 3.6, hemoglobin 13.6 and platelets are 333. ABGs results are not available completely. IMPRESSION: 1. Dyspnea secondary to acute exacerbation of chronic obstructive pulmonary disease and acute bronchitis. 2. Underlying severe chronic obstructive pulmonary disease. 3. Hypoxia secondary to chronic obstructive pulmonary disease exacerbation and bronchitis. 4. History of Mycobacterium avium infection. He stopped using drugs 2 weeks ago. He is not sure why, but I would resume the medications. I will obtain a liver function test and we will obtain the results of the sputum for AFB that was sent 2 weeks ago. RECOMMENDATIONS: 1. Continue with present oxygen. 2. Continue bronchodilators. 3. Continue antibiotics. 4. Resume MAC medications. 5. Obtain results of the sputum culture that was submitted as an outpatient few weeks ago. DONY ARCE MD DR: RIA/veronica JOB#: [id number] / [id number]
[2017-11-15 15:00] VITALS: BP 104/69
[2017-11-15 19:30] VITALS: BP 101/69
[2017-11-15] MEDS: TEMAZEPAM 15 MG CAPSULE PO SCH (21:00)
[2017-11-15 23:40] VITALS: BP 87/52
[2017-11-16] MEDS: ALBUTEROL SULFATE 2.5 MG/3 ML NEBU. NEB PRN ×2 (03:48→09:33)
[2017-11-16 03:51] VITALS: BP 111/74
[2017-11-16 07:00] VITALS: BP 88/55
[2017-11-16] MEDS: CITALOPRAM 10 MG TABLET. PO SCH (08:35)
[2017-11-16] MEDS: ETHAMBUTOL HCL 400 MG TABLET PO SCH (08:35)
[2017-11-16] MEDS: riFAMpin 300 MG CAPSULE. PO SCH ×2 (08:35→20:38)
[2017-11-16 11:00] VITALS: BP 86/56
--- NOTE | 2017-11-16 11:21 | PDOC ---
SUBJECTIVE Subjective Pt feeling better this morning. Still having productive cough but it is improving. No acute complaints this morning. OBJECTIVE Vital Signs Vital Signs Date Time Temp Pulse Resp B/P (MAP) Pulse Ox O2 Delivery O2 Flow Rate FiO2 11/16/17 09:34 98 Nasal Cannula 1.0 11/16/17 08:16 Nasal Cannula 1.0 11/16/17 07:00 97.5 72 20 88/55 (66) 97 Nasal Cannula 97.5 11/16/17 03:51 98.0 83 20 111/74 (86) 90 Room Air 98.0 11/16/17 03:50 98 Nasal Cannula 1.0 11/15/17 23:40 98.4 75 22 87/52 (64) 94 Room Air 98.4 11/15/17 19:59 Room Air 11/15/17 19:41 Nasal Cannula 1.0 11/15/17 19:30 98.1 83 24 101/69 (80) 95 Nasal Cannula 1.0 98.1 11/15/17 15:34 Nasal Cannula 1.0 11/15/17 15:00 97.7 90 20 104/69 (81) 93 Nasal Cannula 1.0 97.7 11/15/17 11:43 Nasal Cannula 1.0 I & O Intake and Output 11/16/17 07:00 Intake Total 270 ml Balance 270 ml Intake Oral 270 ml # Voids 2 PHYSICAL EXAM Physical Exam General: Alert, Oriented X3, Cooperative, mild distress HEENT: Atraumatic, PERRLA, EOMI, dry mucous membranes Lungs: CTAB but diminished airflow throughout Heart: RRR, no rubs, no gallops, no murmurs Abdomen: Normal bowel sounds, Soft, No tenderness, No hepatosplenomegaly Extremities: No clubbing, No cyanosis, No edema Skin: No rashes, No breakdown, No significant lesion Neuro: Normal tone, Cranial nerves 3-12 NL Psych/Mental Status: Mental status NL, Mood WNL ASSESSMENT/PLAN Assessment/Plan Pt is a 62yo CM admitted for COPD Exacerbation 1)COPD Exacerbation- pt discharged last week for COPD Exacerbation and was discharged on Prednisone 60mg daily x 7 days. Pulmonary following. Did not treat pt with antibiotics last admission but he does continue to have productive sputum. Pt currently receiving Levaquin. Pt was apparently not taking MAC medications for the past 2 weeks, which have been resumed. Possible D/C to SNF if pt is agreeable when ready for discharge 2)Hx MAC- pt continued on Rifampin and Ethambutol 3)Insomnia- pt continued on Temazepam 4)PEM- moderate Problems: MARCO MAS MD Nov 16, 2017 11:20
[2017-11-16] MEDS: IPRATRPIUM/ALBUTEROL 0.5/2.5MG 3 ML NEBU. NEB SCH ×3 (11:26→19:33)
[2017-11-16 15:00] VITALS: BP_SYST 100; BP_SYST 127; BP_DIAS 62; BP_DIAS 86
--- NOTE | 2017-11-16 15:20 | PDOC ---
PULMONARY PROGRESS NOTES Subjective less soa Vitals Vital Signs Date Time Temp Pulse Resp B/P (MAP) Pulse Ox O2 Delivery O2 Flow Rate FiO2 11/16/17 11:27 Nasal Cannula 1.0 11/16/17 11:00 98.3 94 20 86/56 (66) 95 98.3 ROS: No Nausea, No Chest Pain, No Abdominal Pain, No Increase Cough General: Alert, No acute distress Lungs: Other (decrease bs) Cardiovascular: S1, S2 Abdomen: Soft, Non-tender Neuro Exam: Alert Extremities: No Edema, Other Skin: Warm Labs Laboratory Tests Test 11/14/17 15:43 11/14/17 16:05 11/15/17 04:15 11/15/17 04:45 O2 Saturation 97 % (92-99) Arterial Blood pO2 at Patient Temp 101 mmHg (65-108) Arterial Blood HCO3 26 mmol/L (21-28) Arterial Blood Base Excess 1 mmol/L (-3-3) FiO2 30.0 White Blood Count 8.4 x10^3/uL (4.0-11.0) 3.6 x10^3/uL (4.0-11.0) Red Blood Count 4.44 x10^6/uL (4.30-5.70) 4.29 x10^6/uL (4.30-5.70) Hemoglobin 14.0 g/dL (13.0-17.5) 13.6 g/dL (13.0-17.5) Hematocrit 43.1 % (39.0-53.0) 41.7 % (39.0-53.0) Mean Corpuscular Volume 97 fL (79-100) 97 fL (79-100) Mean Corpuscular Hemoglobin 32 pg (25-35) 32 pg (25-35) Mean Corpuscular Hemoglobin Concent 33 g/dL (31-37) 33 g/dL (31-37) Red Cell Distribution Width 14.2 % (11.5-14.5) 14.3 % (11.5-14.5) Platelet Count 357 x10^3/uL (140-400) 333 x10^3/uL (140-400) Neutrophils (%) (Auto) 71 % (31-73) 84 % (31-73) Lymphocytes (%) (Auto) 16 % (24-48) 12 % (24-48) Monocytes (%) (Auto) 9 % (0-9) 3 % (0-9) Eosinophils (%) (Auto) 3 % (0-3) 0 % (0-3) Basophils (%) (Auto) 1 % (0-3) 0 % (0-3) Neutrophils # (Auto) 5.9 x10^3uL (1.8-7.7) 3.0 x10^3uL (1.8-7.7) Lymphocytes # (Auto) 1.3 x10^3/uL (1.0-4.8) 0.4 x10^3/uL (1.0-4.8) Monocytes # (Auto) 0.8 x10^3/uL (0.0-1.1) 0.1 x10^3/uL (0.0-1.1) Eosinophils # (Auto) 0.3 x10^3/uL (0.0-0.7) 0.0 x10^3/uL (0.0-0.7) Basophils # (Auto) 0.1 x10^3/uL (0.0-0.2) 0.0 x10^3/uL (0.0-0.2) Sodium Level 138 mmol/L (136-145) 139 mmol/L (136-145) Potassium Level 3.9 mmol/L (3.5-5.1) 4.4 mmol/L (3.5-5.1) Chloride Level 100 mmol/L (98-107) 102 mmol/L (98-107) Carbon Dioxide Level 32 mmol/L (21-32) 30 mmol/L (21-32) Anion Gap 6 (6-14) 7 (6-14) Blood Urea Nitrogen 11 mg/dL (8-26) 14 mg/dL (8-26) Creatinine 0.7 mg/dL (0.7-1.3) 0.6 mg/dL (0.7-1.3) Estimated GFR (Cockcroft-Gault) 113.9 136.1 BUN/Creatinine Ratio 16 (6-20) Glucose Level 94 mg/dL (70-99) 134 mg/dL (70-99) Lactic Acid Level 2.4 mmol/L (0.4-2.0) Calcium Level 9.0 mg/dL (8.5-10.1) 9.1 mg/dL (8.5-10.1) Total Bilirubin 0.2 mg/dL (0.2-1.0) Aspartate Amino Transf (AST/SGOT) 41 U/L (15-37) Alanine Aminotransferase (ALT/SGPT) 43 U/L (16-63) Alkaline Phosphatase 59 U/L (46-116) Troponin I Quantitative < 0.017 ng/mL (0.000-0.055) XU-Kbr-H-Type Natriuretic Peptide 233 pg/mL (0-124) Total Protein 7.7 g/dL (6.4-8.2) Albumin 3.3 g/dL (3.4-5.0) Albumin/Globulin Ratio 0.8 (1.0-1.7) Medications Active Scripts Medications Dose Route/Sig Max Daily Dose Days Date Category Prednisone 10 Mg Tablet 60 Mg PO DAILY 11/06/17 Rx Cyclobenzaprine Hcl 10 Mg Tablet 5 Mg PO PRN Q6HRS PRN 14 11/06/17 Rx Celexa (Citalopram Hydrobromide) 10 Mg Tablet 10 Mg PO DAILY 30 11/06/17 Rx Benzonatate 100 Mg Capsule 100 Mg PO PRN TID PRN 14 11/06/17 Rx Ethambutol Hcl 400 Mg Tablet 800 Mg PO DAILY 08/01/17 Reported Tylenol (Acetaminophen) 325 Mg Tablet 2 Tab PO PRN Q6HRS PRN 08/01/17 Reported Albuterol Sulfate Conc Neb Soln (Albuterol Sulfate) 2.5 Mg/0.5 Ml Vial.neb 1 Vial NEB Q4HRS 02/25/17 Reported Proair Hfa Inhaler (Albuterol Sulfate) 8.5 Gm Hfa.aer.ad 1 Puff INH PRN Q4HRS PRN 02/25/17 Reported Duoneb 0.5-3(2.5) Mg/3 Ml (Albuterol/Ipratropium) 3 Ml Ampul.neb 3 Ml NEB QID 02/25/17 Reported Rifampin 300 Mg Capsule 300 Mg BID 10/22/16 Reported Temazepam 15 Mg Capsule 1 Cap HS 10/22/16 Reported Impression . 1. Dyspnea secondary to acute exacerbation of chronic obstructive pulmonary disease and acute bronchitis. 2. Underlying severe chronic obstructive pulmonary disease. 3. Hypoxia secondary to chronic obstructive pulmonary disease exacerbation and bronchitis. 4. History of Mycobacterium avium infection. He stopped using drugs 2 weeks ago. He is not sure why, but I had resume the medications. 5. normal LFT Plan . 1. Continue with present oxygen. 2. Continue bronchodilators. 3. Continue antibiotics. 4. MAC medications. typical treatment is 6 months of culture negative sputum. will obtain sputum for AFB 5. Could not find any recent sputum results. DONY ARCE MD Nov 16, 2017 15:20
[2017-11-16 19:50] VITALS: BP 97/61
[2017-11-16] MEDS: TEMAZEPAM 15 MG CAPSULE PO SCH (20:38)
[2017-11-16 23:50] VITALS: BP 88/65
[2017-11-17 03:08] VITALS: BP 93/62
[2017-11-17] MEDS: ALBUTEROL SULFATE 2.5 MG/3 ML NEBU. NEB PRN (03:41)
[2017-11-17 07:00] VITALS: BP_SYST 90; BP_SYST 95; BP_DIAS 64; BP_DIAS 68
[2017-11-17] MEDS: IPRATRPIUM/ALBUTEROL 0.5/2.5MG 3 ML NEBU. NEB SCH ×4 (07:31→21:15)
[2017-11-17] MEDS: CITALOPRAM 10 MG TABLET. PO SCH (08:32)
[2017-11-17] MEDS: riFAMpin 300 MG CAPSULE. PO SCH ×2 (08:32→21:21)
[2017-11-17] MEDS: ETHAMBUTOL HCL 400 MG TABLET PO SCH (08:32)
[2017-11-17 09:20] LABS: PCO2 ABG 44 mmHg (35-46); PH ABG 7.39 (7.35-7.45)
--- NOTE | 2017-11-17 10:01 | PDOC ---
PULMONARY PROGRESS NOTES Subjective less soa Vitals Vital Signs Date Time Temp Pulse Resp B/P (MAP) Pulse Ox O2 Delivery O2 Flow Rate FiO2 11/17/17 07:50 Nasal Cannula 1.0 11/17/17 07:31 98 11/17/17 07:00 98.1 82 19 95/64 (74) 98.1 ROS: No Nausea, No Chest Pain, No Abdominal Pain, No Increase Cough General: Alert, No acute distress Lungs: Other (decrease bs) Cardiovascular: S1, S2 Abdomen: Soft, Non-tender Neuro Exam: Alert Extremities: No Edema, Other Skin: Warm Medications Active Scripts Medications Dose Route/Sig Max Daily Dose Days Date Category Prednisone 10 Mg Tablet 60 Mg PO DAILY 11/06/17 Rx Cyclobenzaprine Hcl 10 Mg Tablet 5 Mg PO PRN Q6HRS PRN 14 11/06/17 Rx Celexa (Citalopram Hydrobromide) 10 Mg Tablet 10 Mg PO DAILY 30 11/06/17 Rx Benzonatate 100 Mg Capsule 100 Mg PO PRN TID PRN 14 11/06/17 Rx Ethambutol Hcl 400 Mg Tablet 800 Mg PO DAILY 08/01/17 Reported Tylenol (Acetaminophen) 325 Mg Tablet 2 Tab PO PRN Q6HRS PRN 08/01/17 Reported Albuterol Sulfate Conc Neb Soln (Albuterol Sulfate) 2.5 Mg/0.5 Ml Vial.neb 1 Vial NEB Q4HRS 02/25/17 Reported Proair Hfa Inhaler (Albuterol Sulfate) 8.5 Gm Hfa.aer.ad 1 Puff INH PRN Q4HRS PRN 02/25/17 Reported Duoneb 0.5-3(2.5) Mg/3 Ml (Albuterol/Ipratropium) 3 Ml Ampul.neb 3 Ml NEB QID 02/25/17 Reported Rifampin 300 Mg Capsule 300 Mg BID 10/22/16 Reported Temazepam 15 Mg Capsule 1 Cap HS 10/22/16 Reported Impression . 1. Dyspnea secondary to acute exacerbation of chronic obstructive pulmonary disease and acute bronchitis. 2. Underlying severe chronic obstructive pulmonary disease. 3. Hypoxia secondary to chronic obstructive pulmonary disease exacerbation and bronchitis. 4. History of Mycobacterium avium infection. He stopped using drugs 2 weeks ago. He is not sure why, but I had resume the medications. 5. normal LFT Plan . 1. Continue with present oxygen. will need 6 min walk test at dc 2. Continue bronchodilators. 3. Continue antibiotics. 4. MAC medications. typical treatment is 6 months of culture negative sputum. will obtain sputum for AFB 5. sputum culture normal morales 6. . f/u with me in feb post discharge DONY ARCE MD Nov 17, 2017 10:01
[2017-11-17 11:00] VITALS: BP 91/57
[2017-11-17 15:00] VITALS: BP 100/66
--- NOTE | 2017-11-17 15:45 | PDOC ---
PROGRESS NOTES Subjective Subjective Patient feeling better. But still very SOB with activity. Patient became hypotensive and sob with walk to bath room less than 10 feet away. Objective Objective Vital Signs Date Time Temp Pulse Resp B/P (MAP) Pulse Ox O2 Delivery O2 Flow Rate FiO2 11/17/17 14:57 Room Air 11/17/17 11:00 97.3 87 22 91/57 (68) 92 1.0 97.3 Intake and Output 11/17/17 07:00 Intake Total 1200 ml Output Total 850 ml Balance 350 ml Intake Oral 1200 ml Output Urine Total 850 ml # Voids 2 # Bowel Movements 1 Physical Exam Abdomen: Normal bowel sounds Heart: Regular rate Extremities: No edema General: Alert Lungs: Clear to auscultation, Other (Distant BS) Assessment Assessment Problems Medical Problems: (1) Atypical pneumonia Status: Acute (2) COPD exacerbation Status: Acute 1)COPD Exacerbation- 2)Hx MAC 3)Insomnia 4)Moderate protein malnutrition Plan Plan of Care Check Orthostatic BP's Check 6 Min walk - if tolerated Check labs Home in AM if stable Comment Review of Relevant I have reviewed the following items jamila (where applicable) has been applied. Labs Microbiology 11/14/17 Blood Culture - Preliminary, Resulted NO GROWTH AFTER 2 DAYS 11/15/17 - Final, Complete 11/15/17 - Final, Complete 11/15/17 - Final, Complete 11/15/17 Gram Stain Evaluation - Final, Complete 11/15/17 Sputum Culture - Final, Complete 11/15/17 Sputum Result 1 - Final, Complete Medications Current Medications Albuterol/ Ipratropium (Duoneb) 3 ml STK-MED ONCE .ROUTE ; Start 11/14/17 at 15 :29; Stop 11/14/17 at 15:30; Status DC Ipratropium Barling (Atrovent) 0.5 mg 1X ONCE NEB Last administered on 15:45; Start 11/14/17 at 15:45; Stop 11/14/17 at 15:46; Status DC Methylprednisolone Sodium Succinate (SOLU-Medrol 125MG VIAL) 125 mg 1X ONCE IV Last administered on 11/14/17t 15:44; Start 11/14/17 at 15:45; Stop at 15:46; Status DC Methylprednisolone Sodium Succinate (SOLU-Medrol 125MG VIAL) 125 mg STK-MED ONCE .ROUTE ; Start 11/14/17 at 15:43; Stop 11/14/17 at 15:44; Status DC Azithromycin 250 ml @ 250 mls/hr 1X ONCE IV Last administered on 11/14/17 17:49; Start 11/14/17 at 16:30; Stop 11/14/17 at 17:29; Status DC Ceftriaxone Sodium 50 ml @ 100 mls/hr 1X ONCE IV Last administered on 16:50; Start 11/14/17 at 16:30; Stop 11/14/17 at 16:59; Status DC Ondansetron HCl (Zofran) 4 mg PRN Q8HRS PRN IV NAUSEA/VOMITING; Start at 16:45; Stop 11/15/17 at 16:44; Status DC Fentanyl Citrate (Fentanyl 2ml Vial) 50 mcg PRN Q1HR PRN IV PAIN; Start at 16:45; Stop 11/15/17 at 16:44; Status DC Albuterol/ Ipratropium (Duoneb) 3 ml RTQID NEB Last administered on 11/15/17 15:32; Start 11/14/17 at 17:00; Stop 11/15/17 at 16:59; Status DC Lorazepam (Ativan) 2 mg 1X ONCE IV Last administered on 11/14/17 16:50; Start 11/14/17 at 16:45; Stop 11/14/17 at 16:46; Status DC Lorazepam (Ativan) 2 mg 1X ONCE IV Last administered on 11/14/17 18:14; Start 11/14/17 at 18:15; Stop 11/14/17 at 18:16; Status DC Sodium Chloride 1,000 ml @ 1,000 mls/hr 1X ONCE IV Last administered on 11/14 18:58; Start 11/14/17 at 19:00; Stop 11/14/17 at 19:59; Status DC Albuterol Sulfate (Ventolin Neb Soln) 2.5 mg PRN QID PRN NEB SHORTNESS OF BREATH Last administered on 11/17/17 03:41; Start 11/15/17 at 03:30 Benzonatate (Tessalon Perle) 100 mg PRN TID PRN PO COUGH; Start 11/15/17 at 09 :30 Citalopram Hydrobromide (CeleXA) 10 mg DAILY PO Last administered on 08:32; Start 11/15/17 at 10:30 Ethambutol HCl (Myambutol) 800 mg DAILY PO Last administered on 11/17/17 08: 32; Start 11/15/17 at 10:00 Rifampin (Rifadin) 300 mg BID PO Last administered on 11/17/17 08:32; Start 11/15/17 at 10:00 Temazepam (Restoril) 15 mg HS PO Last administered on 11/16/17 20:38; Start 11/15/17 at 21:00 Levofloxacin/ Dextrose 100 ml @ 100 mls/hr Q24H IV Last administered on 09:30; Start 11/15/17 at 10:00 Albuterol/ Ipratropium (Duoneb) 3 ml RTQID NEB Last administered on 11/17/17 14:57; Start 11/16/17 at 12:00 Fludrocortisone Acetate (Florinef) 0.1 mg DAILY PO ; Start 11/17/17 at 16:00 Active Scripts Active Prednisone 10 Mg Tablet 60 Mg PO DAILY Cyclobenzaprine Hcl 10 Mg Tablet 5 Mg PO PRN Q6HRS PRN 14 Days Celexa (Citalopram Hydrobromide) 10 Mg Tablet 10 Mg PO DAILY 30 Days Benzonatate 100 Mg Capsule 100 Mg PO PRN TID PRN 14 Days Reported Ethambutol Hcl 400 Mg Tablet 800 Mg PO DAILY Tylenol (Acetaminophen) 325 Mg Tablet 2 Tab PO PRN Q6HRS PRN Albuterol Sulfate Conc Neb Soln (Albuterol Sulfate) 2.5 Mg/0.5 Ml Vial.neb 1 Vial NEB Q4HRS Proair Hfa Inhaler (Albuterol Sulfate) 8.5 Gm Hfa.aer.ad 1 Puff INH PRN Q4HRS PRN Duoneb 0.5-3(2.5) Mg/3 Ml (Albuterol/Ipratropium) 3 Ml Ampul.neb 3 Ml NEB QID Rifampin 300 Mg Capsule 300 Mg BID Temazepam 15 Mg Capsule 1 Cap HS Vitals/I & O Vital Sign - Last 24 Hours 12/17/11/16/17 11/16/17 11/16/17 15:46 19:35 19:50 20:03 Temp 97.7 97.7 Resp 19 B/P (MAP) 97/61 (73) Pulse Ox 99 98 O2 Delivery Nasal Cannula Nasal Cannula Nasal Cannula Room Air O2 Flow Rate 1.0 1.0 1.0 11/16/17 11/17/17 11/17/17 11/17/17 23:50 03:08 03:42 07:00 Temp 98.0 98.2 98.0 98.2 Pulse 77 74 Resp 17 B/P (MAP) 88/65 (73) 93/62 (72) 90/68 (75) Pulse Ox 97 96 97 O2 Delivery Nasal Cannula Nasal Cannula Room Air O2 Flow Rate 1.0 1.0 11/17/17 11/17/17 11/17/17 11/17/17 07:00 07:31 07:50 11:00 Temp 98.1 97.3 98.1 97.3 Pulse 82 87 Resp 19 22 B/P (MAP) 95/64 (74) 91/57 (68) Pulse Ox 95 98 92 O2 Delivery Nasal Cannula Room Air Nasal Cannula Nasal Cannula O2 Flow Rate 1.0 1.0 1.0 11/17/17 11/17/17 11:16 14:57 O2 Delivery Room Air Room Air Intake and Output 11/16/17 11/16/17 11/17/17 15:00 23:00 07:00 Intake Total 920 ml 280 ml Output Total 850 ml Balance 920 ml -570 ml DEBORAH PICKENS MD Nov 17, 2017 15:45
[2017-11-17 16:07] LABS: HEMATOCRIT 39.8 % (39.0-53.0); HEMOGLOBIN 13.2 g/dL (13.0-17.5); RED BLOOD COUNT 4.13 x10^6/uL (4.30-5.70); RED CELL DISTRIBUTION WIDTH 13.9 % (11.5-14.5); WHITE BLOOD COUNT 7.7 x10^3/uL (4.0-11.0)
[2017-11-17 16:23] LABS: CALCIUM 8.8 mg/dL (8.5-10.1); CREATININE 0.7 mg/dL (0.7-1.3); GFR 113.9
[2017-11-17] MEDS: FLUDROCORTISONE 0.1 MG TABLET PO SCH (17:34)
[2017-11-17 19:59] VITALS: BP 102/65
[2017-11-17] MEDS: TEMAZEPAM 15 MG CAPSULE PO SCH (21:21)
[2017-11-17 23:07] VITALS: BP 100/59
[2017-11-18 03:55] VITALS: BP 112/73
[2017-11-18 04:10] VITALS: BP 92/60
[2017-11-18 04:20] VITALS: BP 97/65
[2017-11-18] MEDS: IPRATRPIUM/ALBUTEROL 0.5/2.5MG 3 ML NEBU. NEB SCH ×2 (06:42→11:34)
[2017-11-18 07:00] VITALS: BP 103/81
[2017-11-18] MEDS: riFAMpin 300 MG CAPSULE. PO SCH (08:28)
[2017-11-18] MEDS: CITALOPRAM 10 MG TABLET. PO SCH (08:29)
[2017-11-18] MEDS: ETHAMBUTOL HCL 400 MG TABLET PO SCH (08:29)
[2017-11-18] MEDS: FLUDROCORTISONE 0.1 MG TABLET PO SCH (08:29)
[2017-11-18] MEDS ORDERED: IPRA3AMP NEB (10:59)
[2017-11-18] MEDS ORDERED: FLUD0.1T PO (10:59)
[2017-11-18] MEDS ORDERED: LEVO500T59 PO (10:59)
--- NOTE | 2017-11-18 11:16 | DS ---
DATE OF DISCHARGE: 11/17/2017 ADMITTING DIAGNOSIS: Acute on chronic respiratory failure. DISMISSAL DIAGNOSIS: Acute on chronic respiratory failure. SECONDARY DIAGNOSES: 1. Exacerbation of chronic obstructive pulmonary disease. 2. Atypical pneumonia with Mycobacterium avium complex. 3. Moderate protein malnutrition. 4. Orthostatic hypotension. 5. Bronchitis. 6. Major depression. 7. Chronic back pain. 8. Anxiety/insomnia. HISTORY OF PRESENT ILLNESS AND HOSPITAL COURSE: This patient was admitted for increasing shortness of breath recurrently after recent hospitalization. The patient was unable to ambulate or care for himself; therefore, he was admitted to the hospital for routine breathing treatments and pulmonary consultation. Treatment for MAC was reinstituted and the patient was given IV antibiotics and routine breathing treatments. The patient did pass a 6-minute walk and was back to baseline after 3 hospital days. He was started on Florinef to assist with blood pressure and hypotension. His medications were adjusted. DISCHARGE INSTRUCTIONS: He will follow up in one week in the office for continued care. DEBORAH PICKENS MD DR: FAISAL/veronica JOB#: [id number] / [id number]
[2017-11-19] MEDS ORDERED: PRED20TA PO (13:50)
== END 2017-11-18 13:00 | disposition home health service (06) | DRG 177 ==
LOC: ER 15:27 → 1 WEST ICU 16:34 → 2 NORTH 20:46
PROVIDERS: ADMIT Family Medicine; ATTEND Family Medicine
PROC: 5A09357 Assistance with Respiratory Ventilation, Less than 24 Consecutive Hours, Continuous Positive Airway Pressure (ICD-10-PCS; principal; 2017-11-14)
DX: J15.8 Pneumonia due to other specified bacteria (principal); J96.21 Acute and chronic respiratory failure with hypoxia; I42.9 Cardiomyopathy, unspecified; E44.0 Moderate protein-calorie malnutrition; J44.0 Chronic obstructive pulmonary disease with (acute) lower respiratory infection; J44.1 Chronic obstructive pulmonary disease with (acute) exacerbation; Z68.1 Body mass index [BMI] 19.9 or less, adult; J20.9 Acute bronchitis, unspecified; F17.210 Nicotine dependence, cigarettes, uncomplicated; F32.9 Major depressive disorder, single episode, unspecified; F41.9 Anxiety disorder, unspecified; G47.00 Insomnia, unspecified; G89.29 Other chronic pain; I95.1 Orthostatic hypotension
CPT/HCPCS: 36415; 71010; 80048; 80053; 82805; 83605; 83880; 84484; 85025; 85027; 87015; 87040; 87070; 87116; 87205; 93005; 94620; 94640; 94660; 94760; 96365; 96375; 96376; J0456; J0690; J1956; J2060; J2930; J7030; J7613; J7620; J7644; 99291-25

== ENCOUNTER 2017-11-19 05:48 | Emergency (ER) | payer OTHER ==
[2017-11-19 06:17] LABS: ADD MAN DIFF? NO
[2017-11-19 06:21] LABS: BASO # 0.1 x10^3/uL (0.0-0.2); BASO % 1 % (0-3); EOS % 1 % (0-3); HEMOGLOBIN 14.3 g/dL (13.0-17.5); LYMPH # 0.8 x10^3/uL (1.0-4.8); LYMPH % 10 % (24-48); MEAN CORPUSCULAR HEMOGLOBIN 32 pg (25-35); MEAN CORPUSCULAR HGB CONC 33 g/dL (31-37); MEAN CORPUSCULAR VOLUME 97 fL (79-100); MONO % 9 % (0-9); NEUT % 79 % (31-73); PLATELET COUNT 329 x10^3/uL (140-400); RED BLOOD COUNT 4.44 x10^6/uL (4.30-5.70); RED CELL DISTRIBUTION WIDTH 14.2 % (11.5-14.5); WHITE BLOOD COUNT 8.6 x10^3/uL (4.0-11.0)
[2017-11-19] MEDS: methylPREDNISolone SOD SUCC PF 125 MG/2 ML VIAL. IV (06:29)
[2017-11-19 07:21] LABS: TROPONINI < 0.017 ng/mL (0.000-0.055)
[2017-11-19 07:22] LABS: ANION GAP 7 (6-14); BLOOD UREA NITROGEN 21 mg/dL (8-26); BUN/CREATININE RATIO 26 (6-20); CALCIUM 9.2 mg/dL (8.5-10.1); CARBON DIOXIDE 33 mmol/L (21-32); CHLORIDE 100 mmol/L (98-107); CREATININE 0.8 mg/dL (0.7-1.3); GFR 97.6; GLUCOSE 103 mg/dL (70-99); SODIUM 140 mmol/L (136-145)
[2017-11-19 07:23] LABS: ALBUMIN 3.2 g/dL (3.4-5.0); ALBUMIN/GLOBULIN RATIO 0.7 (1.0-1.7); ALK PHOS 54 U/L (46-116); ALT (SGPT) 25 U/L (16-63); AST (SGOT) 23 U/L (15-37); TOTAL BILIRUBIN 0.4 mg/dL (0.2-1.0); TOTAL PROTEIN 7.5 g/dL (6.4-8.2)
[2017-11-19 07:35] LABS: CKMB INDEX 5.4 % (0-4); CKMB MASS 5.5 ng/mL (0.0-3.6); CREATINE KINASE 102 U/L (39-308)
[2017-11-19] MEDS: IPRATRPIUM/ALBUTEROL 0.5/2.5MG 3 ML NEBU. NEB ×3 (10:30→14:02)
[2017-11-19] MEDS: FLUDROCORTISONE 0.1 MG TABLET PO (13:48)
== END 2017-11-19 14:40 | disposition home or self-care (01) ==
LOC: ER 05:48
DX: J44.1 Chronic obstructive pulmonary disease with (acute) exacerbation (principal); F32.9 Major depressive disorder, single episode, unspecified; F14.10 Cocaine abuse, uncomplicated; Z87.01 Personal history of pneumonia (recurrent)
CPT/HCPCS: 36415; 80053; 82553; 84484; 85025; 93005; 94640; 96374; 97161-GP; 97166-GO; 99285-25; G8978-CK-GP; G8979-CI-GP; G8987-CJ-GO; G8988-CI-GO; J2930; J7620

== ENCOUNTER 2018-01-04 02:07 | Emergency (ER) | payer OTHER ==
[2018-01-04] MEDS: IPRATRPIUM/ALBUTEROL 0.5/2.5MG 3 ML NEBU. NEB ×2 (02:46)
[2018-01-04] MEDS: predniSONE 20 MG TABLET PO ×2 (02:47)
== END 2018-01-04 05:07 | disposition home or self-care (01) ==
LOC: ER 02:07
DX: J44.1 Chronic obstructive pulmonary disease with (acute) exacerbation (principal); Z72.0 Tobacco use; J44.9 Chronic obstructive pulmonary disease, unspecified
CPT/HCPCS: 71045; 93005; 94640; 99284-25; J7512; J7620

== ENCOUNTER 2018-01-05 15:47 | Inpatient (IN) | payer OTHER ==
[2018-01-05] MEDS ORDERED: IPRATRPIUM/ALBUTEROL 0.5/2.5MG 3 ML NEBU. (15:58)
[2018-01-05] MEDS: IPRATRPIUM/ALBUTEROL 0.5/2.5MG 3 ML NEBU. NEB ×4 (16:00→19:36)
[2018-01-05 16:13] LABS: ADD MAN DIFF? NO
[2018-01-05 16:15] LABS: BASO # 0.1 x10^3/uL (0.0-0.2); BASO % 1 % (0-3); EOS # 0.5 x10^3/uL (0.0-0.7); EOS % 7 % (0-3); HEMATOCRIT 39.9 % (39.0-53.0); HEMOGLOBIN 13.2 g/dL (13.0-17.5); LYMPH % 15 % (24-48); MEAN CORPUSCULAR HEMOGLOBIN 32 pg (25-35); MEAN CORPUSCULAR HGB CONC 33 g/dL (31-37); MEAN CORPUSCULAR VOLUME 96 fL (79-100); MONO # 0.8 x10^3/uL (0.0-1.1); MONO % 11 % (0-9); NEUT # 4.6 x10^3uL (1.8-7.7); NEUT % 66 % (31-73); PLATELET COUNT 271 x10^3/uL (140-400); RED BLOOD COUNT 4.15 x10^6/uL (4.30-5.70); RED CELL DISTRIBUTION WIDTH 13.6 % (11.5-14.5); WHITE BLOOD COUNT 6.9 x10^3/uL (4.0-11.0)
[2018-01-05] MEDS: methylPREDNISolone SOD SUCC PF 125 MG/2 ML VIAL. IV (16:23)
[2018-01-05 16:35] LABS: ANION GAP 6 (6-14); BLOOD UREA NITROGEN 17 mg/dL (8-26); BUN/CREATININE RATIO 24 (6-20); CALCIUM 9.7 mg/dL (8.5-10.1); CARBON DIOXIDE 35 mmol/L (21-32); CHLORIDE 102 mmol/L (98-107); CREATININE 0.7 mg/dL (0.7-1.3); GFR 113.9; GLUCOSE 110 mg/dL (70-99); POTASSIUM 4.5 mmol/L (3.5-5.1); SODIUM 143 mmol/L (136-145)
[2018-01-05 16:42] LABS: LACTIC ACID 1.9 mmol/L (0.4-2.0)
[2018-01-05 16:46] LABS: NT-PRO BNP 376 pg/mL (0-124); TROPONINI < 0.017 ng/mL (0.000-0.055)
[2018-01-05 16:48] LABS: ALBUMIN 3.6 g/dL (3.4-5.0); ALBUMIN/GLOBULIN RATIO 0.8 (1.0-1.7); ALK PHOS 52 U/L (46-116); ALT (SGPT) 32 U/L (16-63); AST (SGOT) 32 U/L (15-37); TOTAL BILIRUBIN 0.3 mg/dL (0.2-1.0); TOTAL PROTEIN 8.2 g/dL (6.4-8.2)
[2018-01-05 17:00] LABS: INFLUENZA A PATIENT NEGATIVE (NEGATIVE); INFLUENZA B PATIENT NEGATIVE (NEGATIVE); OBC FLU VALID
[2018-01-05 17:03] LABS: BILIRUBIN,URINE NEGATIVE (NEG); CLARITY,URINE CLEAR; COLOR,URINE AMBER; GLUCOSE,URINE NEGATIVE (NEG); NITRITE,URINE NEGATIVE (NEG); PROTEIN,URINE NEGATIVE (NEG-TRACE); UROBILINOGEN,URINE 0.2 mg/dL (0.2 mg/dL)
[2018-01-05 17:10] LABS: BACTERIA,URINE 0 /HPF (0-FEW); RBC,URINE OCC /HPF (0-2); WBC,URINE OCC /HPF (0-4)
[2018-01-05 17:40] LABS: BASE EXCESS ABG 7 mmol/L (-3-3); HCO3 ABG 35 mmol/L (21-28); PH ABG 7.35 (7.35-7.45); PO2 ABG 145 mmHg (65-108); SAT O2 ABG 98 % (92-99)
[2018-01-05 17:42] LABS: PCO2 ABG 65 mmHg (35-46)
[2018-01-05] MEDS ORDERED: fentaNYL PF VIAL 100 MCG/2 ML VIAL IV (18:45)
[2018-01-05] MEDS ORDERED: ACETAMINOPHEN 325 MG TABLET. PO ×2 (18:45→22:00)
[2018-01-05] MEDS ORDERED: ONDANSETRON PF 4 MG/2 ML VIAL. IV (18:45)
[2018-01-05] MEDS ORDERED: CYCLOBENZAPRINE 10 MG TABLET. PO (22:00)
[2018-01-05] MEDS: TEMAZEPAM 15 MG CAPSULE PO (22:12)
[2018-01-05] MEDS: ENOXAPARIN 40 MG/0.4 ML SYRINGE. SQ (22:12)
[2018-01-06 01:17] LABS: TROPONINI < 0.017 ng/mL (0.000-0.055)
[2018-01-06 06:46] LABS: ADD MAN DIFF? NO
[2018-01-06 06:48] LABS: BASO % 1 % (0-3); EOS # 0.1 x10^3/uL (0.0-0.7); EOS % 2 % (0-3); HEMATOCRIT 36.9 % (39.0-53.0); HEMOGLOBIN 12.2 g/dL (13.0-17.5); LYMPH # 1.1 x10^3/uL (1.0-4.8); LYMPH % 24 % (24-48); MEAN CORPUSCULAR HEMOGLOBIN 32 pg (25-35); MEAN CORPUSCULAR HGB CONC 33 g/dL (31-37); MEAN CORPUSCULAR VOLUME 96 fL (79-100); MONO # 0.5 x10^3/uL (0.0-1.1); MONO % 11 % (0-9); NEUT # 2.9 x10^3uL (1.8-7.7); NEUT % 61 % (31-73); PLATELET COUNT 241 x10^3/uL (140-400); RED BLOOD COUNT 3.84 x10^6/uL (4.30-5.70); RED CELL DISTRIBUTION WIDTH 13.7 % (11.5-14.5); WHITE BLOOD COUNT 4.7 x10^3/uL (4.0-11.0)
[2018-01-06 07:14] LABS: ALBUMIN 3.1 g/dL (3.4-5.0); ALBUMIN/GLOBULIN RATIO 0.9 (1.0-1.7); ALK PHOS 42 U/L (46-116); ALT (SGPT) 33 U/L (16-63); ANION GAP 1 (6-14); AST (SGOT) 23 U/L (15-37); BLOOD UREA NITROGEN 17 mg/dL (8-26); BUN/CREATININE RATIO 24 (6-20); CARBON DIOXIDE 39 mmol/L (21-32); CHLORIDE 101 mmol/L (98-107); CREATININE 0.7 mg/dL (0.7-1.3); GFR 113.9; GLUCOSE 101 mg/dL (70-99); POTASSIUM 4.5 mmol/L (3.5-5.1); SODIUM 141 mmol/L (136-145); TOTAL BILIRUBIN 0.1 mg/dL (0.2-1.0); TOTAL PROTEIN 6.7 g/dL (6.4-8.2)
[2018-01-06 07:19] LABS: TROPONINI < 0.017 ng/mL (0.000-0.055)
[2018-01-06] MEDS: IPRATRPIUM/ALBUTEROL 0.5/2.5MG 3 ML NEBU. NEB ×4 (07:56→20:24)
[2018-01-06] MEDS: FLUDROCORTISONE 0.1 MG TABLET PO (09:17)
[2018-01-06] MEDS: riFAMpin 300 MG CAPSULE. PO (09:17)
[2018-01-06] MEDS: AZITHROMYCIN 250 MG TABLET. PO (09:18)
[2018-01-06] MEDS: CITALOPRAM 10 MG TABLET. PO (09:18)
[2018-01-06] MEDS: LACTOBACILLUS RHAMNOSUS GG 1 CAPSULE. PO ×2 (09:18→21:21)
[2018-01-06] MEDS: ETHAMBUTOL HCL 400 MG TABLET PO (10:30)
[2018-01-06] MEDS: ENOXAPARIN 40 MG/0.4 ML SYRINGE. SQ (21:25)
[2018-01-06] MEDS: TEMAZEPAM 15 MG CAPSULE PO (23:55)
[2018-01-07] MEDS: ALBUTEROL SULFATE 2.5 MG/3 ML NEBU. NEB ×2 (00:01→17:54)
[2018-01-07] MEDS: IPRATRPIUM/ALBUTEROL 0.5/2.5MG 3 ML NEBU. NEB ×4 (05:44→20:59)
[2018-01-07] MEDS: IV NORMAL SALINE 500 ML BAG IV (09:15)
[2018-01-07] MEDS: FLUDROCORTISONE 0.1 MG TABLET PO (09:57)
[2018-01-07] MEDS: AZITHROMYCIN 250 MG TABLET. PO (09:57)
[2018-01-07] MEDS: LACTOBACILLUS RHAMNOSUS GG 1 CAPSULE. PO ×2 (09:57→21:18)
[2018-01-07] MEDS: ETHAMBUTOL HCL 400 MG TABLET PO (09:57)
[2018-01-07] MEDS: riFAMpin 300 MG CAPSULE. PO (09:57)
[2018-01-07] MEDS: CITALOPRAM 10 MG TABLET. PO (09:58)
[2018-01-07] MEDS: ENOXAPARIN 40 MG/0.4 ML SYRINGE. SQ (21:18)
[2018-01-07] MEDS: TEMAZEPAM 15 MG CAPSULE PO (21:18)
[2018-01-08] MEDS: ALBUTEROL SULFATE 2.5 MG/3 ML NEBU. NEB (05:17)
[2018-01-08] MEDS: IPRATRPIUM/ALBUTEROL 0.5/2.5MG 3 ML NEBU. NEB ×3 (07:46→15:44)
[2018-01-08] MEDS: riFAMpin 300 MG CAPSULE. PO (10:10)
[2018-01-08] MEDS: LACTOBACILLUS RHAMNOSUS GG 1 CAPSULE. PO (10:10)
[2018-01-08] MEDS: CITALOPRAM 10 MG TABLET. PO (10:10)
[2018-01-08] MEDS: FLUDROCORTISONE 0.1 MG TABLET PO (10:10)
[2018-01-08] MEDS: AZITHROMYCIN 250 MG TABLET. PO (10:10)
[2018-01-08] MEDS: ETHAMBUTOL HCL 400 MG TABLET PO (10:11)
== END 2018-01-08 17:10 | disposition home health service (06) | DRG 189 ==
LOC: ER 15:47 → 6 SOUTH 17:30
PROC: 5A09357 Assistance with Respiratory Ventilation, Less than 24 Consecutive Hours, Continuous Positive Airway Pressure (ICD-10-PCS; principal; 2018-01-06)
DX: J96.21 Acute and chronic respiratory failure with hypoxia (principal); I42.9 Cardiomyopathy, unspecified; A31.0 Pulmonary mycobacterial infection; J44.0 Chronic obstructive pulmonary disease with (acute) lower respiratory infection; Z99.81 Dependence on supplemental oxygen; J44.1 Chronic obstructive pulmonary disease with (acute) exacerbation; F32.9 Major depressive disorder, single episode, unspecified; J20.8 Acute bronchitis due to other specified organisms; Z83.3 Family history of diabetes mellitus; Z87.891 Personal history of nicotine dependence; F19.10 Other psychoactive substance abuse, uncomplicated
CPT/HCPCS: 36415; 36600; 71045; 80053; 81001; 82805; 83605; 83880; 84484; 85025; 87040; 87070; 87186; 87205; 87804; 87804-59; 93005; 94640; 94760; 96374; 97110-GP; 97162-GP; 97165-GO; 99291; 99291-25; J1650; J2930; J7040; J7613; J7620; Q0144

== ENCOUNTER 2018-03-09 11:34 | Observation (INO) | payer OTHER ==
[2018-03-09 11:50] LABS: BASE EXCESS ABG 4 mmol/L (-3-3); HCO3 ABG 32 mmol/L (21-28); PH ABG 7.34 (7.35-7.45); PO2 ABG 132 mmHg (65-108); SAT O2 ABG 98 % (92-99)
[2018-03-09 11:52] LABS: ADD MAN DIFF? NO
[2018-03-09 11:54] LABS: BASO % 1 % (0-3); EOS # 0.4 x10^3/uL (0.0-0.7); EOS % 5 % (0-3); HEMATOCRIT 41.5 % (39.0-53.0); HEMOGLOBIN 13.9 g/dL (13.0-17.5); LYMPH # 0.8 x10^3/uL (1.0-4.8); LYMPH % 11 % (24-48); MEAN CORPUSCULAR HEMOGLOBIN 32 pg (25-35); MEAN CORPUSCULAR HGB CONC 33 g/dL (31-37); MEAN CORPUSCULAR VOLUME 95 fL (79-100); MONO # 0.6 x10^3/uL (0.0-1.1); MONO % 8 % (0-9); NEUT # 5.5 x10^3uL (1.8-7.7); NEUT % 75 % (31-73); PLATELET COUNT 287 x10^3/uL (140-400); RED BLOOD COUNT 4.35 x10^6/uL (4.30-5.70); RED CELL DISTRIBUTION WIDTH 13.7 % (11.5-14.5); WHITE BLOOD COUNT 7.3 x10^3/uL (4.0-11.0)
[2018-03-09] MEDS: IPRATRPIUM/ALBUTEROL 0.5/2.5MG 3 ML NEBU. NEB ×5 (12:00→22:13)
[2018-03-09 12:14] LABS: BILIRUBIN,URINE NEGATIVE (NEG); CLARITY,URINE CLEAR; COLOR,URINE YELLOW; GLUCOSE,URINE NEGATIVE (NEG); NITRITE,URINE NEGATIVE (NEG); PH,URINE 5.5; PROTEIN,URINE NEGATIVE (NEG-TRACE); UROBILINOGEN,URINE 0.2 mg/dL (0.2 mg/dL)
[2018-03-09 12:18] LABS: AMPHETAMINE/METHAMPHETAMINE NEG (NEG); BARBITURATES NEG (NEG); BENZODIAZEPINES POS (NEG); CANNABINOIDS NEG (NEG); COCAINE NEG (NEG); ETHANOL, URINE NEG (NEG); METHADONE NEG (NEG); OPIATES NEG (NEG); PHENCYCLIDINE NEG (NEG)
[2018-03-09 12:24] LABS: BACTERIA,URINE 0 /HPF (0-FEW); RBC,URINE 0 /HPF (0-2); WBC,URINE 0 /HPF (0-4)
[2018-03-09] MEDS: methylPREDNISolone SOD SUCC PF 125 MG/2 ML VIAL. IV (12:36)
[2018-03-09 12:43] LABS: ALBUMIN 3.5 g/dL (3.4-5.0); ALK PHOS 53 U/L (46-116); ALT (SGPT) 37 U/L (16-63); ANION GAP 1 (6-14); AST (SGOT) 31 U/L (15-37); BLOOD UREA NITROGEN 17 mg/dL (8-26); CALCIUM 9.4 mg/dL (8.5-10.1); CARBON DIOXIDE 36 mmol/L (21-32); CHLORIDE 101 mmol/L (98-107); CREATININE 0.9 mg/dL (0.7-1.3); DIRECT BILIRUBIN 0.1 mg/dL (0.0-0.2); GFR 85.2; GLUCOSE 108 mg/dL (70-99); MAGNESIUM 2.2 mg/dL (1.8-2.4); POTASSIUM 4.3 mmol/L (3.5-5.1); SODIUM 138 mmol/L (136-145); TOTAL BILIRUBIN 0.4 mg/dL (0.2-1.0)
[2018-03-09 12:47] LABS: LACTIC ACID 1.2 mmol/L (0.4-2.0); TROPONINI < 0.017 ng/mL (0.000-0.055)
[2018-03-09 12:55] LABS: NT-PRO BNP 196 pg/mL (0-124)
[2018-03-09 12:55] LABS: CKMB INDEX 2.9 % (0-4); CKMB MASS 2.9 ng/mL (0.0-3.6); CREATINE KINASE 101 U/L (39-308)
[2018-03-09 12:57] LABS: FIO2 ABG 32; PCO2 ABG 61 mmHg (35-46)
[2018-03-09] MEDS: ASPIRIN 325 MG TABLET PO (13:25)
[2018-03-09] MEDS: NITROGLYCERIN SUBLINGUAL 0.4 MG BOTTLE OF 25. SL (13:26)
[2018-03-09] MEDS ORDERED: ONDANSETRON PF 4 MG/2 ML VIAL. IV (13:45)
[2018-03-09] MEDS ORDERED: CONTRAST GIVEN MC (14:00)
[2018-03-09] MEDS: IOHEXOL 300 MG/ML 100ML VIAL. IV (14:29)
[2018-03-09] MEDS ORDERED: IPRATRPIUM/ALBUTEROL 0.5/2.5MG 3 ML NEBU. NEB (16:00)
[2018-03-09 16:43] LABS: ALBUMIN 3.2 g/dL (3.4-5.0); ALBUMIN/GLOBULIN RATIO 0.7 (1.0-1.7); ALK PHOS 52 U/L (46-116); ALT (SGPT) 35 U/L (16-63); ANION GAP 2 (6-14); AST (SGOT) 27 U/L (15-37); BLOOD UREA NITROGEN 18 mg/dL (8-26); BUN/CREATININE RATIO 16 (6-20); CALCIUM 8.9 mg/dL (8.5-10.1); CARBON DIOXIDE 37 mmol/L (21-32); CHLORIDE 102 mmol/L (98-107); CREATININE 1.1 mg/dL (0.7-1.3); GFR 67.6; GLUCOSE 145 mg/dL (70-99); POTASSIUM 4.8 mmol/L (3.5-5.1); SODIUM 141 mmol/L (136-145); TOTAL BILIRUBIN 0.3 mg/dL (0.2-1.0); TOTAL PROTEIN 7.5 g/dL (6.4-8.2)
[2018-03-09 16:46] LABS: TROPONINI < 0.017 ng/mL (0.000-0.055)
[2018-03-09] MEDS: ALBUTEROL SULFATE 2.5 MG/3 ML NEBU. NEB (18:01)
[2018-03-09 20:09] LABS: TROPONINI < 0.017 ng/mL (0.000-0.055)
[2018-03-09] MEDS: MONTELUKAST SODIUM 10 MG TABLET. PO (21:03)
[2018-03-10] MEDS: ALBUTEROL SULFATE 2.5 MG/3 ML NEBU. NEB ×2 (03:30→10:27)
[2018-03-10 04:47] LABS: ADD MAN DIFF? NO
[2018-03-10 04:54] LABS: BASO % 0 % (0-3); EOS # 0.3 x10^3/uL (0.0-0.7); EOS % 4 % (0-3); HEMATOCRIT 34.5 % (39.0-53.0); HEMOGLOBIN 11.4 g/dL (13.0-17.5); LYMPH # 0.8 x10^3/uL (1.0-4.8); LYMPH % 14 % (24-48); MEAN CORPUSCULAR HEMOGLOBIN 31 pg (25-35); MEAN CORPUSCULAR HGB CONC 33 g/dL (31-37); MEAN CORPUSCULAR VOLUME 95 fL (79-100); MONO # 0.7 x10^3/uL (0.0-1.1); MONO % 11 % (0-9); NEUT # 4.2 x10^3uL (1.8-7.7); NEUT % 70 % (31-73); PLATELET COUNT 203 x10^3/uL (140-400); RED BLOOD COUNT 3.64 x10^6/uL (4.30-5.70); RED CELL DISTRIBUTION WIDTH 13.5 % (11.5-14.5)
[2018-03-10 05:11] LABS: ANION GAP 2 (6-14); BLOOD UREA NITROGEN 20 mg/dL (8-26); CALCIUM 9.3 mg/dL (8.5-10.1); CARBON DIOXIDE 35 mmol/L (21-32); CHLORIDE 104 mmol/L (98-107); CREATININE 0.7 mg/dL (0.7-1.3); GFR 113.9; GLUCOSE 104 mg/dL (70-99); POTASSIUM 3.9 mmol/L (3.5-5.1); SODIUM 141 mmol/L (136-145)
[2018-03-10] MEDS: IPRATRPIUM/ALBUTEROL 0.5/2.5MG 3 ML NEBU. NEB ×2 (07:07→14:16)
[2018-03-10] MEDS: CITALOPRAM 10 MG TABLET. PO (09:36)
[2018-03-10] MEDS: FLUDROCORTISONE 0.1 MG TABLET PO (09:37)
[2018-03-10] MEDS: predniSONE 20 MG TABLET PO (09:37)
[2018-03-10] MEDS: riFAMpin 300 MG CAPSULE. PO (09:37)
[2018-03-10] MEDS: ETHAMBUTOL HCL 400 MG TABLET PO (09:37)
[2018-03-10] MEDS: AZITHROMYCIN 250 MG TABLET. PO (09:38)
== END 2018-03-10 15:30 | disposition home or self-care (01) ==
LOC: ER 11:34 → 5 SOUTH 12:45
DX: J96.21 Acute and chronic respiratory failure with hypoxia (principal); J44.1 Chronic obstructive pulmonary disease with (acute) exacerbation; F41.1 Generalized anxiety disorder; G47.30 Sleep apnea, unspecified; I42.9 Cardiomyopathy, unspecified; I48.91 Unspecified atrial fibrillation; K21.9 Gastro-esophageal reflux disease without esophagitis; Z80.1 Family history of malignant neoplasm of trachea, bronchus and lung; Z86.11 Personal history of tuberculosis; Z87.891 Personal history of nicotine dependence
CPT/HCPCS: 36415; 36600; 71045; 71275; 74174; 80048; 80053; 80076; 80307; 81001; 82553; 82805; 83605; 83735; 83880; 84484; 85025; 93005; 93306; 94640; 96374; 99285; G0378; G0379; J2930; J7512; J7613; J7620; Q0144; Q9967

== ENCOUNTER 2018-04-18 23:52 | Observation (INO) | payer OTHER ==
[2018-04-19] MEDS: ALBUTEROL SULFATE 2.5 MG/3 ML NEBU. CONT NEB (00:15)
[2018-04-19] MEDS: IPRATRPIUM/ALBUTEROL 0.5/2.5MG 3 ML NEBU. NEB ×5 (00:15→18:23)
[2018-04-19] MEDS: predniSONE 10 MG TABLET PO (00:29)
[2018-04-19 00:52] LABS: TROPONINI < 0.017 ng/mL (0.000-0.055)
[2018-04-19 00:56] LABS: NT-PRO BNP 239 pg/mL (0-124)
[2018-04-19] MEDS ORDERED: AZITHROMYCIN 250 MG TABLET. PO (01:45)
[2018-04-19] MEDS ORDERED: ONDANSETRON PF 4 MG/2 ML VIAL. IV (02:00)
[2018-04-19 04:59] LABS: ADD MAN DIFF? YES; BASO % 1 % (0-3); EOS # 0.1 x10^3/uL (0.0-0.7); EOS % 2 % (0-3); HEMATOCRIT 35.4 % (39.0-53.0); HEMOGLOBIN 12.1 g/dL (13.0-17.5); LYMPH # 0.3 x10^3/uL (1.0-4.8); LYMPH % 7 % (24-48); MEAN CORPUSCULAR HEMOGLOBIN 32 pg (25-35); MEAN CORPUSCULAR HGB CONC 34 g/dL (31-37); MEAN CORPUSCULAR VOLUME 94 fL (79-100); MONO # 0.1 x10^3/uL (0.0-1.1); MONO % 3 % (0-9); NEUT # 4.5 x10^3uL (1.8-7.7); NEUT % 89 % (31-73); PLATELET COUNT 234 x10^3/uL (140-400); RED BLOOD COUNT 3.78 x10^6/uL (4.30-5.70); RED CELL DISTRIBUTION WIDTH 13.1 % (11.5-14.5); WHITE BLOOD COUNT 5.1 x10^3/uL (4.0-11.0)
[2018-04-19 05:26] LABS: ANION GAP 5 (6-14); BLOOD UREA NITROGEN 15 mg/dL (8-26); CARBON DIOXIDE 33 mmol/L (21-32); CHLORIDE 100 mmol/L (98-107); GFR 75.2; GLUCOSE 118 mg/dL (70-99); POTASSIUM 4.9 mmol/L (3.5-5.1); SODIUM 138 mmol/L (136-145)
[2018-04-19 05:38] LABS: TROPONINI < 0.017 ng/mL (0.000-0.055)
[2018-04-19 07:28] LABS: % BANDS 3 % (0-9); % EOS 2 % (0-5); % LYMPHS 5 % (24-48); % MONOS 3 % (0-10); % SEGS 87 % (35-66); PLT ESTIMATE ADEQUATE (ADEQUATE)
[2018-04-19] MEDS: BUDESONIDE 0.5 MG/2 ML NEBU. NEB ×2 (09:00→18:23)
[2018-04-19] MEDS: riFAMpin 300 MG CAPSULE. PO (11:59)
[2018-04-19] MEDS: FLUDROCORTISONE 0.1 MG TABLET PO (11:59)
[2018-04-19] MEDS: AZITHROMYCIN 250 MG TABLET. PO (11:59)
[2018-04-19] MEDS: predniSONE 20 MG TABLET PO (11:59)
[2018-04-19] MEDS: ETHAMBUTOL HCL 400 MG TABLET PO (16:19)
[2018-04-19] MEDS: ACETAMINOPHEN 325 MG TABLET. PO (16:22)
[2018-04-20 04:23] LABS: ADD MAN DIFF? NO
[2018-04-20 04:28] LABS: BASO % 1 % (0-3); EOS # 0.1 x10^3/uL (0.0-0.7); EOS % 1 % (0-3); HEMATOCRIT 32.9 % (39.0-53.0); HEMOGLOBIN 11.3 g/dL (13.0-17.5); LYMPH # 1.1 x10^3/uL (1.0-4.8); LYMPH % 23 % (24-48); MEAN CORPUSCULAR HEMOGLOBIN 32 pg (25-35); MEAN CORPUSCULAR HGB CONC 34 g/dL (31-37); MEAN CORPUSCULAR VOLUME 94 fL (79-100); MONO # 0.7 x10^3/uL (0.0-1.1); MONO % 16 % (0-9); NEUT # 2.8 x10^3uL (1.8-7.7); NEUT % 59 % (31-73); PLATELET COUNT 233 x10^3/uL (140-400); RED BLOOD COUNT 3.51 x10^6/uL (4.30-5.70); RED CELL DISTRIBUTION WIDTH 13.5 % (11.5-14.5); WHITE BLOOD COUNT 4.7 x10^3/uL (4.0-11.0)
[2018-04-20 05:41] LABS: ANION GAP 2 (6-14); BLOOD UREA NITROGEN 15 mg/dL (8-26); CALCIUM 9.2 mg/dL (8.5-10.1); CARBON DIOXIDE 35 mmol/L (21-32); CHLORIDE 103 mmol/L (98-107); CREATININE 0.7 mg/dL (0.7-1.3); GFR 113.5; GLUCOSE 110 mg/dL (70-99); POTASSIUM 3.8 mmol/L (3.5-5.1); SODIUM 140 mmol/L (136-145)
[2018-04-20] MEDS: BUDESONIDE 0.5 MG/2 ML NEBU. NEB (06:53)
[2018-04-20] MEDS: IPRATRPIUM/ALBUTEROL 0.5/2.5MG 3 ML NEBU. NEB ×2 (06:53→12:04)
[2018-04-20] MEDS: FLUDROCORTISONE 0.1 MG TABLET PO (08:40)
[2018-04-20] MEDS: AZITHROMYCIN 250 MG TABLET. PO (08:40)
[2018-04-20] MEDS: predniSONE 20 MG TABLET PO (08:40)
[2018-04-20] MEDS: riFAMpin 300 MG CAPSULE. PO (08:40)
[2018-04-20] MEDS: ETHAMBUTOL HCL 400 MG TABLET PO (08:43)
[2018-04-20] MEDS ORDERED: IPRATRPIUM/ALBUTEROL 0.5/2.5MG 3 ML NEBU. NEB (12:30)
== END 2018-04-20 13:10 | disposition home or self-care (01) ==
LOC: ER 23:52 → 5 NORTH 04-19 01:45
PROVIDERS: Family Medicine
DX: J96.20 Acute and chronic respiratory failure, unspecified whether with hypoxia or hypercapnia (principal); J44.1 Chronic obstructive pulmonary disease with (acute) exacerbation; J20.9 Acute bronchitis, unspecified; I42.9 Cardiomyopathy, unspecified; I50.9 Heart failure, unspecified; F41.9 Anxiety disorder, unspecified; I95.9 Hypotension, unspecified; Z82.49 Family history of ischemic heart disease and other diseases of the circulatory system; Z99.81 Dependence on supplemental oxygen; Z87.891 Personal history of nicotine dependence
CPT/HCPCS: 36415; 71045; 80048; 83880; 84484; 85007; 85025; 93005; 94640; 94644; 94760; 99285-25; G0378; G0379; J7512; J7613; J7620; J7626; Q0144

== ENCOUNTER 2018-04-24 20:56 | Inpatient (IN) | payer OTHER ==
[2018-04-24 21:15] LABS: ADD MAN DIFF? NO
[2018-04-24 21:17] LABS: BASO % 1 % (0-3); EOS # 0.4 x10^3/uL (0.0-0.7); EOS % 8 % (0-3); HEMATOCRIT 39.1 % (39.0-53.0); HEMOGLOBIN 13.2 g/dL (13.0-17.5); LYMPH # 1.3 x10^3/uL (1.0-4.8); LYMPH % 29 % (24-48); MEAN CORPUSCULAR HEMOGLOBIN 32 pg (25-35); MEAN CORPUSCULAR HGB CONC 34 g/dL (31-37); MEAN CORPUSCULAR VOLUME 94 fL (79-100); MONO # 0.5 x10^3/uL (0.0-1.1); MONO % 10 % (0-9); NEUT # 2.3 x10^3uL (1.8-7.7); NEUT % 51 % (31-73); PLATELET COUNT 299 x10^3/uL (140-400); RED BLOOD COUNT 4.14 x10^6/uL (4.30-5.70); RED CELL DISTRIBUTION WIDTH 13.2 % (11.5-14.5); WHITE BLOOD COUNT 4.4 x10^3/uL (4.0-11.0)
[2018-04-24] MEDS: IPRATRPIUM/ALBUTEROL 0.5/2.5MG 3 ML NEBU. NEB (21:23)
[2018-04-24 21:32] LABS: BASE EXCESS COOX 4 mmol/L (-3-3); CARBON MONOXIDE 0.1 % (0.0-1.9); HCO3 COOX 30 mmol/L (21-28); METHEMOGLOBIN 0.4 % (0.0-1.9); OXYHEMOGLOBIN 97.3 %; PCO2 COOX 53 mmHg (35-46); PH COOX 7.38 (7.35-7.45); PO2 COOX 120 mmHg (65-108); SAT O2 COOX 98 % (92-99); TOTAL HEMOGLOBIN 13.1 g/dL
[2018-04-24 21:33] LABS: FIO2 COOX 35
[2018-04-24 21:37] LABS: ANION GAP 7 (6-14); BLOOD UREA NITROGEN 11 mg/dL (8-26); BUN/CREATININE RATIO 16 (6-20); CALCIUM 8.9 mg/dL (8.5-10.1); CARBON DIOXIDE 32 mmol/L (21-32); CHLORIDE 97 mmol/L (98-107); CREATININE 0.7 mg/dL (0.7-1.3); GFR 113.5; GLUCOSE 98 mg/dL (70-99); POTASSIUM 4.9 mmol/L (3.5-5.1); SODIUM 136 mmol/L (136-145)
[2018-04-24] MEDS: methylPREDNISolone SOD SUCC PF 125 MG/2 ML VIAL. IV (21:37)
[2018-04-24 21:43] LABS: ALBUMIN 3.6 g/dL (3.4-5.0); ALBUMIN/GLOBULIN RATIO 0.8 (1.0-1.7); ALK PHOS 47 U/L (46-116); ALT (SGPT) 32 U/L (16-63); AST (SGOT) 50 U/L (15-37); CREATINE KINASE 133 U/L (39-308); TOTAL BILIRUBIN 0.4 mg/dL (0.2-1.0); TOTAL PROTEIN 8.3 g/dL (6.4-8.2)
[2018-04-24 21:43] LABS: TROPONINI < 0.017 ng/mL (0.000-0.055)
[2018-04-24 21:51] LABS: CKMB INDEX 2.2 % (0-4); CREATINE KINASE 135 U/L (39-308)
[2018-04-24 21:51] LABS: NT-PRO BNP 209 pg/mL (0-124)
[2018-04-24] MEDS ORDERED: ONDANSETRON PF 4 MG/2 ML VIAL. IV (22:15)
[2018-04-25 02:07] LABS: TROPONINI < 0.017 ng/mL (0.000-0.055)
[2018-04-25] MEDS ORDERED: ALBUTEROL SULFATE 2.5 MG/3 ML NEBU. NEB (06:45)
[2018-04-25] MEDS: IPRATRPIUM/ALBUTEROL 0.5/2.5MG 3 ML NEBU. NEB ×4 (07:54→19:42)
[2018-04-25] MEDS ORDERED: NON FORMULARY ITEM (Albuterol Sulfate (Proair Hfa Inhaler) 1 PUFF) INH (09:30)
[2018-04-25] MEDS: ENOXAPARIN 40 MG/0.4 ML SYRINGE. SQ (10:54)
[2018-04-25] MEDS: riFAMpin 300 MG CAPSULE. PO (10:55)
[2018-04-25] MEDS: FLUDROCORTISONE 0.1 MG TABLET PO (10:55)
[2018-04-25] MEDS: AZITHROMYCIN 250 MG TABLET. PO (10:55)
[2018-04-25] MEDS: ETHAMBUTOL HCL 400 MG TABLET PO (11:01)
[2018-04-25] MEDS: predniSONE 20 MG TABLET PO (18:03)
[2018-04-25] MEDS: CYCLOBENZAPRINE 10 MG TABLET. PO (18:04)
[2018-04-25] MEDS: LACTOBACILLUS RHAMNOSUS GG 1 CAPSULE. PO (20:59)
[2018-04-25] MEDS: MONTELUKAST SODIUM 10 MG TABLET. PO (20:59)
[2018-04-25] MEDS: ALBUTEROL SULFATE 2.5 MG/3 ML NEBU. NEB (23:16)
[2018-04-26 04:27] LABS: ADD MAN DIFF? NO
[2018-04-26 04:49] LABS: BASO % 1 % (0-3); EOS % 1 % (0-3); HEMATOCRIT 32.7 % (39.0-53.0); HEMOGLOBIN 11.1 g/dL (13.0-17.5); LYMPH # 0.8 x10^3/uL (1.0-4.8); LYMPH % 18 % (24-48); MEAN CORPUSCULAR HEMOGLOBIN 32 pg (25-35); MEAN CORPUSCULAR HGB CONC 34 g/dL (31-37); MEAN CORPUSCULAR VOLUME 94 fL (79-100); MONO # 0.4 x10^3/uL (0.0-1.1); MONO % 10 % (0-9); NEUT % 71 % (31-73); PLATELET COUNT 265 x10^3/uL (140-400); RED BLOOD COUNT 3.48 x10^6/uL (4.30-5.70); RED CELL DISTRIBUTION WIDTH 13.3 % (11.5-14.5); WHITE BLOOD COUNT 4.2 x10^3/uL (4.0-11.0)
[2018-04-26 05:23] LABS: ANION GAP 4 (6-14); BLOOD UREA NITROGEN 20 mg/dL (8-26); CALCIUM 8.9 mg/dL (8.5-10.1); CARBON DIOXIDE 34 mmol/L (21-32); CHLORIDE 103 mmol/L (98-107); CREATININE 0.7 mg/dL (0.7-1.3); GFR 113.5; GLUCOSE 123 mg/dL (70-99); POTASSIUM 4.2 mmol/L (3.5-5.1); SODIUM 141 mmol/L (136-145)
[2018-04-26] MEDS: IPRATRPIUM/ALBUTEROL 0.5/2.5MG 3 ML NEBU. NEB ×4 (07:35→19:21)
[2018-04-26] MEDS: LACTOBACILLUS RHAMNOSUS GG 1 CAPSULE. PO ×2 (07:44→20:34)
[2018-04-26] MEDS: FLUDROCORTISONE 0.1 MG TABLET PO (07:44)
[2018-04-26] MEDS: predniSONE 20 MG TABLET PO (07:44)
[2018-04-26] MEDS: AZITHROMYCIN 250 MG TABLET. PO (07:44)
[2018-04-26] MEDS: riFAMpin 300 MG CAPSULE. PO (07:44)
[2018-04-26] MEDS: ETHAMBUTOL HCL 400 MG TABLET PO (07:45)
[2018-04-26] MEDS: ROFLUMILAST 500 MCG TABLET. PO (13:47)
[2018-04-26] MEDS: methylPREDNISolone SOD SUCC PF 40 MG/ML VIAL. IV ×2 (13:47→21:17)
[2018-04-26] MEDS: ENOXAPARIN 40 MG/0.4 ML SYRINGE. SQ (13:47)
[2018-04-26] MEDS: MONTELUKAST SODIUM 10 MG TABLET. PO (20:34)
[2018-04-26] MEDS: ALBUTEROL SULFATE 2.5 MG/3 ML NEBU. NEB (23:23)
[2018-04-27] MEDS: methylPREDNISolone SOD SUCC PF 40 MG/ML VIAL. IV (06:10)
[2018-04-27] MEDS: LACTOBACILLUS RHAMNOSUS GG 1 CAPSULE. PO (08:00)
[2018-04-27] MEDS: ROFLUMILAST 500 MCG TABLET. PO (08:00)
[2018-04-27] MEDS: predniSONE 20 MG TABLET PO (08:00)
[2018-04-27] MEDS: riFAMpin 300 MG CAPSULE. PO (08:01)
[2018-04-27] MEDS: FLUDROCORTISONE 0.1 MG TABLET PO (08:01)
[2018-04-27] MEDS: ETHAMBUTOL HCL 400 MG TABLET PO (08:01)
[2018-04-27] MEDS: AZITHROMYCIN 250 MG TABLET. PO (08:01)
[2018-04-27] MEDS: IPRATRPIUM/ALBUTEROL 0.5/2.5MG 3 ML NEBU. NEB (08:08)
== END 2018-04-27 11:05 | disposition home or self-care (01) | DRG 189 ==
LOC: ER 20:56 → 2 SOUTH 22:55
PROC: 5A09357 Assistance with Respiratory Ventilation, Less than 24 Consecutive Hours, Continuous Positive Airway Pressure (ICD-10-PCS; principal; 2018-04-24)
PROC: 5A09357 Assistance with Respiratory Ventilation, Less than 24 Consecutive Hours, Continuous Positive Airway Pressure (ICD-10-PCS; 2018-04-25)
DX: J96.21 Acute and chronic respiratory failure with hypoxia (principal); E46 Unspecified protein-calorie malnutrition; A31.0 Pulmonary mycobacterial infection; I42.9 Cardiomyopathy, unspecified; Z99.81 Dependence on supplemental oxygen; J44.1 Chronic obstructive pulmonary disease with (acute) exacerbation; J96.22 Acute and chronic respiratory failure with hypercapnia; F19.10 Other psychoactive substance abuse, uncomplicated; F10.10 Alcohol abuse, uncomplicated; F32.9 Major depressive disorder, single episode, unspecified; F41.1 Generalized anxiety disorder; F17.200 Nicotine dependence, unspecified, uncomplicated
CPT/HCPCS: 36415; 36600; 71045; 80048; 80053; 82550; 82553; 82805; 83880; 84484; 85025; 93005; 94640; 94660; 94760; G0378; G0379; J1650; J2920; J2930; J7512; J7613; J7620; Q0144

== ENCOUNTER 2018-05-01 22:00 | Inpatient (IN) | payer OTHER ==
[2018-05-01] MEDS ORDERED: ALBUTEROL SULFATE 2.5 MG/3 ML NEBU. (22:08)
[2018-05-01] MEDS: IPRATRPIUM/ALBUTEROL 0.5/2.5MG 3 ML NEBU. NEB (22:30)
[2018-05-01] MEDS ORDERED: ONDANSETRON PF 4 MG/2 ML VIAL. IV (22:45)
[2018-05-01] MEDS ORDERED: ACETAMINOPHEN 325 MG TABLET. PO (22:45)
[2018-05-01] MEDS: methylPREDNISolone SOD SUCC PF 125 MG/2 ML VIAL. IV (22:55)
[2018-05-01 23:01] LABS: ADD MAN DIFF? NO
[2018-05-01 23:02] LABS: BASO # 0.1 x10^3/uL (0.0-0.2); BASO % 1 % (0-3); EOS # 0.4 x10^3/uL (0.0-0.7); EOS % 6 % (0-3); HEMATOCRIT 37.4 % (39.0-53.0); HEMOGLOBIN 12.8 g/dL (13.0-17.5); LYMPH # 1.4 x10^3/uL (1.0-4.8); LYMPH % 22 % (24-48); MEAN CORPUSCULAR HEMOGLOBIN 32 pg (25-35); MEAN CORPUSCULAR HGB CONC 34 g/dL (31-37); MEAN CORPUSCULAR VOLUME 94 fL (79-100); MONO # 0.6 x10^3/uL (0.0-1.1); MONO % 9 % (0-9); NEUT # 4.1 x10^3uL (1.8-7.7); NEUT % 62 % (31-73); PLATELET COUNT 320 x10^3/uL (140-400); RED BLOOD COUNT 3.97 x10^6/uL (4.30-5.70); RED CELL DISTRIBUTION WIDTH 13.8 % (11.5-14.5); WHITE BLOOD COUNT 6.6 x10^3/uL (4.0-11.0)
[2018-05-01 23:17] LABS: BILIRUBIN,URINE NEGATIVE (NEG); CLARITY,URINE CLEAR; COLOR,URINE YELLOW; GLUCOSE,URINE NEGATIVE (NEG); NITRITE,URINE NEGATIVE (NEG); PH,URINE 6.5; PROTEIN,URINE NEGATIVE (NEG-TRACE); UROBILINOGEN,URINE 0.2 mg/dL (0.2 mg/dL)
[2018-05-01 23:21] LABS: ANION GAP 10 (6-14); BLOOD UREA NITROGEN 12 mg/dL (8-26); BUN/CREATININE RATIO 20 (6-20); CALCIUM 9.1 mg/dL (8.5-10.1); CARBON DIOXIDE 27 mmol/L (21-32); CHLORIDE 98 mmol/L (98-107); CREATININE 0.6 mg/dL (0.7-1.3); GFR 135.6; GLUCOSE 54 mg/dL (70-99); POTASSIUM 4.7 mmol/L (3.5-5.1); SODIUM 135 mmol/L (136-145)
[2018-05-01 23:23] LABS: NT-PRO BNP 177 pg/mL (0-124)
[2018-05-01 23:26] LABS: ALBUMIN 3.5 g/dL (3.4-5.0); ALBUMIN/GLOBULIN RATIO 0.8 (1.0-1.7); ALK PHOS 47 U/L (46-116); ALT (SGPT) 33 U/L (16-63); AST (SGOT) 37 U/L (15-37); TOTAL BILIRUBIN 0.5 mg/dL (0.2-1.0); TOTAL PROTEIN 7.8 g/dL (6.4-8.2)
[2018-05-01 23:28] LABS: BACTERIA,URINE 0 /HPF (0-FEW); RBC,URINE 0 /HPF (0-2); SQUAMOUS EPITHELIAL CELL,UR OCC /LPF; WBC,URINE 0 /HPF (0-4)
[2018-05-01] MEDS ORDERED: IPRATRPIUM/ALBUTEROL 0.5/2.5MG 3 ML NEBU. NEB (23:45)
[2018-05-02] MEDS: IV NORMAL SALINE 1000ML BAG 1,000 ML IV ×3 (00:30→17:00)
[2018-05-02] MEDS: IPRATRPIUM/ALBUTEROL 0.5/2.5MG 3 ML NEBU. NEB ×5 (07:14→18:23)
[2018-05-02] MEDS: ROFLUMILAST 500 MCG TABLET. PO (11:50)
[2018-05-02] MEDS: riFAMpin 300 MG CAPSULE. PO (11:50)
[2018-05-02] MEDS: predniSONE 10 MG TABLET PO (11:50)
[2018-05-02] MEDS: ETHAMBUTOL HCL 400 MG TABLET PO (11:50)
[2018-05-02] MEDS: AZITHROMYCIN 250 MG TABLET. PO (11:50)
[2018-05-02] MEDS: ALBUTEROL SULFATE 2.5 MG/3 ML NEBU. NEB (23:10)
[2018-05-03] MEDS: IPRATRPIUM/ALBUTEROL 0.5/2.5MG 3 ML NEBU. NEB ×4 (05:46→19:18)
[2018-05-03] MEDS: ETHAMBUTOL HCL 400 MG TABLET PO (09:09)
[2018-05-03] MEDS: predniSONE 10 MG TABLET PO (09:09)
[2018-05-03] MEDS: AZITHROMYCIN 250 MG TABLET. PO (09:09)
[2018-05-03] MEDS: ROFLUMILAST 500 MCG TABLET. PO (09:10)
[2018-05-03] MEDS: riFAMpin 300 MG CAPSULE. PO (09:10)
[2018-05-03] MEDS: ALBUTEROL SULFATE 2.5 MG/3 ML NEBU. NEB (23:30)
[2018-05-04] MEDS: IPRATRPIUM/ALBUTEROL 0.5/2.5MG 3 ML NEBU. NEB ×3 (06:15→15:15)
[2018-05-04] MEDS: ETHAMBUTOL HCL 400 MG TABLET PO (09:49)
[2018-05-04] MEDS: predniSONE 20 MG TABLET PO (09:49)
[2018-05-04] MEDS: riFAMpin 300 MG CAPSULE. PO (09:49)
[2018-05-04] MEDS: ROFLUMILAST 500 MCG TABLET. PO (09:50)
[2018-05-04] MEDS: AZITHROMYCIN 250 MG TABLET. PO (09:50)
== END 2018-05-04 15:54 | disposition hospice, home (50) | DRG 189 ==
LOC: ER 22:00 → 5 SOUTH 22:30
PROC: 5A09357 Assistance with Respiratory Ventilation, Less than 24 Consecutive Hours, Continuous Positive Airway Pressure (ICD-10-PCS; principal; 2018-05-01)
DX: J96.20 Acute and chronic respiratory failure, unspecified whether with hypoxia or hypercapnia (principal); I95.89 Other hypotension; I42.9 Cardiomyopathy, unspecified; Z99.81 Dependence on supplemental oxygen; A31.0 Pulmonary mycobacterial infection; J44.1 Chronic obstructive pulmonary disease with (acute) exacerbation; F14.90 Cocaine use, unspecified, uncomplicated; Z51.5 Encounter for palliative care; F17.210 Nicotine dependence, cigarettes, uncomplicated; F41.9 Anxiety disorder, unspecified; Z88.8 Allergy status to other drugs, medicaments and biological substances; Z79.899 Other long term (current) drug therapy
CPT/HCPCS: 36415; 71045; 80053; 81001; 83880; 85025; 87070; 87116; 87205; 93005; 94640; 94760; 96374; 99285; 99285-25; J2930; J7030; J7512; J7613; J7620; Q0144

== ENCOUNTER 2018-06-05 23:26 | Emergency (ER) | payer OTHER ==
[2018-06-05] MEDS: methylPREDNISolone SOD SUCC PF 125 MG/2 ML VIAL. IV (23:41)
[2018-06-05] MEDS ORDERED: ALBUTEROL SULFATE 2.5 MG/3 ML NEBU. CONT NEB (23:45)
[2018-06-05] MEDS: DOXYCYCLINE HYCLATE 100 MG in IV DEXTROSE 5% 100ML 100 ML IV (23:45)
[2018-06-05 23:50] LABS: ADD MAN DIFF? NO
[2018-06-05 23:52] LABS: BASO # 0.1 x10^3/uL (0.0-0.2); BASO % 1 % (0-3); EOS # 0.4 x10^3/uL (0.0-0.7); EOS % 9 % (0-3); HEMOGLOBIN 12.6 g/dL (13.0-17.5); LYMPH # 1.1 x10^3/uL (1.0-4.8); LYMPH % 24 % (24-48); MEAN CORPUSCULAR HEMOGLOBIN 32 pg (25-35); MEAN CORPUSCULAR HGB CONC 34 g/dL (31-37); MEAN CORPUSCULAR VOLUME 94 fL (79-100); MONO # 0.5 x10^3/uL (0.0-1.1); MONO % 11 % (0-9); NEUT # 2.6 x10^3uL (1.8-7.7); NEUT % 55 % (31-73); PLATELET COUNT 237 x10^3/uL (140-400); RED BLOOD COUNT 3.94 x10^6/uL (4.30-5.70); RED CELL DISTRIBUTION WIDTH 13.8 % (11.5-14.5); WHITE BLOOD COUNT 4.7 x10^3/uL (4.0-11.0)
[2018-06-05] MEDS: IPRATRPIUM/ALBUTEROL 0.5/2.5MG 3 ML NEBU. NEB (23:52)
[2018-06-06 00:03] LABS: ANION GAP 7 (6-14); BLOOD UREA NITROGEN 10 mg/dL (8-26); BUN/CREATININE RATIO 14 (6-20); CALCIUM 8.5 mg/dL (8.5-10.1); CARBON DIOXIDE 30 mmol/L (21-32); CHLORIDE 99 mmol/L (98-107); CREATININE 0.7 mg/dL (0.7-1.3); GFR 113.5; GLUCOSE 113 mg/dL (70-99); SODIUM 136 mmol/L (136-145)
[2018-06-06 00:09] LABS: ALBUMIN 3.3 g/dL (3.4-5.0); ALBUMIN/GLOBULIN RATIO 0.8 (1.0-1.7); ALK PHOS 46 U/L (46-116); ALT (SGPT) 30 U/L (16-63); AST (SGOT) 35 U/L (15-37); TOTAL BILIRUBIN 0.2 mg/dL (0.2-1.0); TOTAL PROTEIN 7.3 g/dL (6.4-8.2)
[2018-06-06 00:13] LABS: TROPONINI < 0.017 ng/mL (0.000-0.055)
[2018-06-06 00:15] LABS: NT-PRO BNP 228 pg/mL (0-124)
== END 2018-06-06 01:28 | disposition home or self-care (01) ==
LOC: ER 23:26
DX: J44.9 Chronic obstructive pulmonary disease, unspecified (principal); I42.9 Cardiomyopathy, unspecified; Z88.8 Allergy status to other drugs, medicaments and biological substances
CPT/HCPCS: 36415; 71045; 80053; 83880; 84484; 85025; 93005; 94640; 94660; 96365; 96375; 99285-25; J2930; J3490; J7620

== ENCOUNTER 2018-09-26 00:27 | Emergency (ER) | payer OTHER ==
[~2018-09-26] VITALS: Ht 175.3 cm; Wt 49.9 kg
[~2018-09-26 00:27] MED LIST changes: +AZIT500T PO; +DOXY100T9 PO; +ESCITALOPRAM OX10 MG PO; +FLUD0.1T PO; -IPRA3AMP; -IPRA3AMP NEB; +IPRA3AMP29; +IPRA3AMP29 NEB; +LEVO750T31 PO; +MONT10TA9 PO; +ROFL500T7 PO; +TRAZ-85 PO
[2018-09-26] MEDS ORDERED: ALBUTEROL SULFATE 2.5 MG/3 ML NEBU. ONE (00:39)
[2018-09-26] MEDS ORDERED: ALBUTEROL SULFATE 2.5 MG/3 ML NEBU. NEB ONE (00:45)
[2018-09-26] MEDS ORDERED: methylPREDNISolone SOD SUCC PF 125 MG/2 ML VIAL. IV ONE (01:00)
[2018-09-26] MEDS ORDERED: IV NORMAL SALINE 1000ML BAG 1,000 ML IV SCH (01:00)
[2018-09-26 01:09] LABS: BASO % 0 % (0-3); EOS # 0.1 x10^3/uL (0.0-0.7); EOS % 3 % (0-3); HEMATOCRIT 36.7 % (39.0-53.0); HEMOGLOBIN 12.4 g/dL (13.0-17.5); LYMPH # 0.9 x10^3/uL (1.0-4.8); LYMPH % 18 % (24-48); MEAN CORPUSCULAR HEMOGLOBIN 32 pg (25-35); MEAN CORPUSCULAR HGB CONC 34 g/dL (31-37); MEAN CORPUSCULAR VOLUME 95 fL (79-100); MONO # 0.5 x10^3/uL (0.0-1.1); MONO % 9 % (0-9); NEUT # 3.6 x10^3uL (1.8-7.7); NEUT % 70 % (31-73); PLATELET COUNT 298 x10^3/uL (140-400); RED BLOOD COUNT 3.88 x10^6/uL (4.30-5.70); RED CELL DISTRIBUTION WIDTH 14.3 % (11.5-14.5); WHITE BLOOD COUNT 5.1 x10^3/uL (4.0-11.0)
[2018-09-26 01:21] LABS: CALCIUM 9.5 mg/dL (8.5-10.1); CREATININE 0.8 mg/dL (0.7-1.3); GFR 97.3; POTASSIUM 3.8 mmol/L (3.5-5.1)
[2018-09-26 01:23] LABS: BASE EXCESS ABG 11 mmol/L (-3-3); HCO3 ABG 38 mmol/L (21-28); PO2 ABG 125 mmHg (65-108); SAT O2 ABG 98 % (92-99)
[2018-09-26 01:24] LABS: PCO2 ABG 67 mmHg (35-46)
[2018-09-26 01:25] LABS: FIO2 ABG 40
[2018-09-26 01:27] LABS: ALBUMIN 3.2 g/dL (3.4-5.0); ALBUMIN/GLOBULIN RATIO 0.7 (1.0-1.7); TOTAL BILIRUBIN 0.2 mg/dL (0.2-1.0); TOTAL PROTEIN 7.6 g/dL (6.4-8.2)
[2018-09-26] MEDS ORDERED: LIDOCAINE 2% VISCOUS 15 ML SOLUTION. SWSW ONE (02:00)
[2018-09-26 02:05] VITALS: BP 116/70
--- NOTE | 2018-09-26 02:08 | PHYS DOC ---
Past Medical History Past Medical History: COPD Additional Past Medical Histor: CARDIOMYOPATHY, MAC, SUBSTANCE ABUSE Past Surgical History: Other Additional Past Surgical Histo: bronchoscopy, back surgery x2 Alcohol Use: Occasionally Drug Use: None, Cocaine Adult General Chief Complaint Chief Complaint: SHORTNESS OF BREATH [facility] HPI Patient is a 63-year-old male presents with complaint of shortness of breath and wheezing. Patient has end-stage COPD and states that his nebulizer treatment at home oxygen was not improving symptoms. He states that he had tried to contact his hospice nurse but was placed on hold. He ultimately called EMS for transport. EMS reports that upon their arrival his oxygen saturation was fairly low on the 70s and they put him on CPAP and gave him breathing treatment and O2 sat went up to the upper 90s. Patient does indicate that he has improvement in symptoms at this time. Hospice nurse has indicated that she would like for patient to be discharged home if possible where they could continue to care for his needs. Review of Systems Review of Systems Constitutional: Denies fever or chills [] Respiratory: Complains of cough and shortness of breath [] Cardiovascular: No additional information not addressed in HPI [] Musculoskeletal: Complains of back pain[] Integument: Partial-thickness vyas to both sides of face around the cheeks and perioral tissue[] All other systems were reviewed and found to be within normal limits, except as documented in this note. Current Medications Current Medications Current Medications Medications (Trade) Dose Ordered Sig/Ken Start Time Stop Time Status Last Admin Dose Admin Albuterol Sulfate (Ventolin Neb Soln) 2.5 mg STK-MED ONCE 09/26/18 00:39 09/26/18 00:40 DC Lidocaine HCl (Viscous Lidocaine) 15 ml 1X ONCE 09/26/18 02:00 09/26/18 02:01 DC 09/26/18 01:56 15 ML Methylprednisolone Sodium Succinate (SOLU-Medrol 125MG VIAL) 125 mg 1X ONCE 09/26/18 01:00 09/26/18 01:01 DC 09/26/18 01:56 125 MG Sodium Chloride 1,000 ml @ 100 mls/hr Q10H 09/26/18 01:00 09/26/18 02:23 DC 09/26/18 01:56 100 MLS/HR Allergies Allergies Allergies Coded Allergies Type Severity Reaction Last Updated Verified No Known Medication Allergies Allergy Unknown 04/28/18 Yes alprazolam Adverse Reaction Intermediate HYPOTENSION 02/22/18 Yes Physical Exam Physical Exam Constitutional: Well developed, well nourished, in mild respiratory distress. [] HENT: Normocephalic, atraumatic, bilateral external ears normal, oropharynx dry , no oral exudates, nose normal. [] Eyes: PERRLA, EOMI, conjunctiva normal, no discharge. [] Neck: Normal range of motion, no tenderness, supple, no stridor. [] Cardiovascular: Mildly tachycardic rate with regular rhythm[] Lungs & Thorax: Diminished breath sounds are noted bilaterally with inspiratory and expiratory wheezes[] Abdomen: Bowel sounds normal, soft, no tenderness. [] Skin: Warm, dry. [] Extremities: No tenderness, no cyanosis, no clubbing, ROM intact, no edema. [] Neurologic: Alert and oriented X 3, no focal deficits noted. [] Current Patient Data Vital Signs Vital Signs Date Time Temp Pulse Resp B/P (MAP) Pulse Ox O2 Delivery O2 Flow Rate FiO2 09/26/18 02:05 92 18 116/70 (85) 91 Nasal Cannula 09/26/18 00:27 98.6 98.6 Lab Values Laboratory Tests Test 09/26/18 00:35 09/26/18 00:50 O2 Saturation 98 % (92-99) Arterial Blood pH 7.37 (7.35-7.45) Arterial Blood pCO2 at Patient Temp 67 mmHg (35-46) *H Arterial Blood pO2 at Patient Temp 125 mmHg (65-108) H Arterial Blood HCO3 38 mmol/L (21-28) H Arterial Blood Base Excess 11 mmol/L (-3-3) H FiO2 40 White Blood Count 5.1 x10^3/uL (4.0-11.0) Red Blood Count 3.88 x10^6/uL (4.30-5.70) L Hemoglobin 12.4 g/dL (13.0-17.5) L Hematocrit 36.7 % (39.0-53.0) L Mean Corpuscular Volume 95 fL (79-100) Mean Corpuscular Hemoglobin 32 pg (25-35) Mean Corpuscular Hemoglobin Concent 34 g/dL (31-37) Red Cell Distribution Width 14.3 % (11.5-14.5) Platelet Count 298 x10^3/uL (140-400) Neutrophils (%) (Auto) 70 % (31-73) Lymphocytes (%) (Auto) 18 % (24-48) L Monocytes (%) (Auto) 9 % (0-9) Eosinophils (%) (Auto) 3 % (0-3) Basophils (%) (Auto) 0 % (0-3) Neutrophils # (Auto) 3.6 x10^3uL (1.8-7.7) Lymphocytes # (Auto) 0.9 x10^3/uL (1.0-4.8) L Monocytes # (Auto) 0.5 x10^3/uL (0.0-1.1) Eosinophils # (Auto) 0.1 x10^3/uL (0.0-0.7) Basophils # (Auto) 0.0 x10^3/uL (0.0-0.2) Sodium Level 141 mmol/L (136-145) Potassium Level 3.8 mmol/L (3.5-5.1) Chloride Level 99 mmol/L (98-107) Carbon Dioxide Level 37 mmol/L (21-32) H Anion Gap 5 (6-14) L Blood Urea Nitrogen 9 mg/dL (8-26) Creatinine 0.8 mg/dL (0.7-1.3) Estimated GFR (Cockcroft-Gault) 97.3 BUN/Creatinine Ratio 11 (6-20) Glucose Level 141 mg/dL (70-99) H Calcium Level 9.5 mg/dL (8.5-10.1) Total Bilirubin 0.2 mg/dL (0.2-1.0) Aspartate Amino Transferase (AST) 24 U/L (15-37) Alanine Aminotransferase (ALT) 26 U/L (16-63) Alkaline Phosphatase 50 U/L (46-116) YI-Pkf-Q-Type Natriuretic Peptide 366 pg/mL (0-124) H Total Protein 7.6 g/dL (6.4-8.2) Albumin 3.2 g/dL (3.4-5.0) L Albumin/Globulin Ratio 0.7 (1.0-1.7) L Laboratory Tests 09/26/18 00:50 Laboratory Tests 09/26/18 00:50 EKG EKG [] Radiology/Procedures Radiology/Procedures [] Impressions: Chest x-ray demonstrates no acute process. Course & Med Decision Making Course & Med Decision Making Pertinent Labs and Imaging studies reviewed. (See chart for details) Patient placed on BiPAP on arrival and was given 7.5 mg albuterol via nebulizer. ABG was obtained while on BiPAP and demonstrated pH of 7.37, PCO2 of 67 and PO2 of 125. Shortly after reviewing ABG, patient was removed from BiPAP and tolerated nasal cannula on 3 L. Ultimately patient did report improvement in symptoms and requested discharge. Dragon Disclaimer Dragon Disclaimer This electronic medical record was generated, in whole or in part, using a voice recognition dictation system. Departure Departure Impression: Primary Impression: COPD (chronic obstructive pulmonary disease) Disposition: 01 HOME, SELF-CARE Condition: IMPROVED Referrals: DEBORAH PICKENS MD (PCP) Patient Instructions: Chronic Obstructive Pulmonary Disease Exacerbation Problem Qualifiers Primary Impression: COPD (chronic obstructive pulmonary disease) COPD type: unspecified COPD Qualified Codes: J44.9 - Chronic obstructive pulmonary disease, unspecified NIRAV HANEY Jr. DO Sep 26, 2018 02:08
--- NOTE | 2018-09-26 07:53 | RAD ---
Examination: PORTABLE CHEST 1V History: soa Comparison/Correlation: 06/05/2018 portable chest x-ray exam. Findings: Portable frontal view of the chest was obtained. Left apical pleural thickening is present. Right lung apex is not fully included. No significant pneumothorax suspected. Pulmonary hyperinflation noted. Scarring at the left lower lung field or possibly discoid atelectasis again seen. Decreased left lateral basilar infiltrate. Heart size and pulmonary vasculature are normal. Impression: COPD. No new infiltrate. Electronically signed by: Eliazar Linares MD (09/26/2018 7:50 AM) [facility]
--- NOTE | 2018-09-26 09:24 | EKG ---
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
== END 2018-09-26 02:20 | disposition home or self-care (01) ==
LOC: ER 00:27
DX: J44.9 Chronic obstructive pulmonary disease, unspecified (principal); Z88.8 Allergy status to other drugs, medicaments and biological substances
CPT/HCPCS: 36415; 36600; 71045; 80053; 82805; 83880; 85025; 93005; 94640; 94660; 96374; 99285; J2930; J7030; J7613

== ENCOUNTER 2018-10-23 23:30 | Emergency (ER) | payer OTHER ==
[~2018-10-23] VITALS: Ht 165.1 cm; Wt 49.9 kg
[~2018-10-23 23:30] MED LIST changes: -HYDR-2758 PO; +HYDR-2761 PO
[2018-10-23] MEDS ORDERED: ASPIRIN 325 MG TABLET PO ONE (23:45)
[2018-10-23] MEDS ORDERED: MORPHINE SULFATE 4 MG/ML VIAL. IV ONE (23:45)
[2018-10-24 00:16] LABS: BASO % 1 % (0-3); EOS # 0.1 x10^3/uL (0.0-0.7); EOS % 3 % (0-3); HEMATOCRIT 37.2 % (39.0-53.0); HEMOGLOBIN 12.4 g/dL (13.0-17.5); LYMPH % 22 % (24-48); MEAN CORPUSCULAR HEMOGLOBIN 32 pg (25-35); MEAN CORPUSCULAR HGB CONC 33 g/dL (31-37); MEAN CORPUSCULAR VOLUME 95 fL (79-100); MONO # 0.4 x10^3/uL (0.0-1.1); MONO % 10 % (0-9); NEUT # 2.8 x10^3uL (1.8-7.7); NEUT % 64 % (31-73); PLATELET COUNT 395 x10^3/uL (140-400); RED BLOOD COUNT 3.92 x10^6/uL (4.30-5.70); RED CELL DISTRIBUTION WIDTH 14.3 % (11.5-14.5); WHITE BLOOD COUNT 4.3 x10^3/uL (4.0-11.0)
[2018-10-24 00:31] LABS: CALCIUM 9.6 mg/dL (8.5-10.1); CREATININE 0.6 mg/dL (0.7-1.3); GFR 135.6
[2018-10-24 00:37] LABS: ALBUMIN/GLOBULIN RATIO 0.7 (1.0-1.7); MAGNESIUM 2.1 mg/dL (1.8-2.4); TOTAL BILIRUBIN 0.1 mg/dL (0.2-1.0); TOTAL PROTEIN 7.4 g/dL (6.4-8.2)
[2018-10-24 00:45] LABS: CREATINE KINASE 50 U/L (39-308)
--- NOTE | 2018-10-24 01:03 | PHYS DOC ---
Past Medical History Past Medical History: COPD Additional Past Medical Histor: CARDIOMYOPATHY, MAC, SUBSTANCE ABUSE Past Surgical History: Other Additional Past Surgical Histo: bronchoscopy, back surgery x2 Alcohol Use: Occasionally Drug Use: None, Cocaine Adult General Chief Complaint Chief Complaint: CHEST PAIN HPI HPI Patient is a 63 year old [f__sex] who presents with [] Review of Systems Review of Systems Constitutional: Denies fever or chills [] Eyes: Denies change in visual acuity, redness, or eye pain [] HENT: Denies nasal congestion or sore throat [] Respiratory: Denies cough or shortness of breath [] Cardiovascular: No additional information not addressed in HPI [] GI: Denies abdominal pain, nausea, vomiting, bloody stools or diarrhea [] : Denies dysuria or hematuria [] Musculoskeletal: Denies back pain or joint pain [] Integument: Denies rash or skin lesions [] Neurologic: Denies headache, focal weakness or sensory changes [] Endocrine: Denies polyuria or polydipsia [] All other systems were reviewed and found to be within normal limits, except as documented in this note. Current Medications Current Medications Current Medications Medications (Trade) Dose Ordered Sig/Ken Start Time Stop Time Status Last Admin Dose Admin Albuterol/ Ipratropium (Duoneb) 3 ml 1X ONCE 10/24/18 03:00 10/24/18 03:29 DC 10/24/18 03:00 3 ML Aspirin (Chadd Aspirin) 325 mg 1X ONCE 10/23/18 23:45 10/23/18 23:46 DC 10/23/18 23:50 325 MG Info (CONTRAST GIVEN -- Rx MONITORING) 1 each PRN DAILY PRN 10/24/18 03:00 10/26/18 02:59 Iohexol (Omnipaque 300 Mg/ml) 75 ml 1X ONCE 10/24/18 03:00 10/24/18 03:01 DC 10/24/18 03:40 75 ML Morphine Sulfate (Morphine Sulfate) 6 mg 1X ONCE 10/24/18 03:00 10/24/18 03:29 DC 10/24/18 03:04 6 MG Sodium Chloride 1,000 ml @ 1,000 mls/hr 1X ONCE 10/24/18 03:00 10/24/18 03:59 DC 10/24/18 03:20 1,000 MLS/HR Allergies Allergies Allergies Coded Allergies Type Severity Reaction Last Updated Verified No Known Medication Allergies Allergy Unknown 04/28/18 Yes alprazolam Adverse Reaction Intermediate HYPOTENSION 02/22/18 Yes Physical Exam Physical Exam Constitutional: Well developed, well nourished, no acute distress, non-toxic appearance. [] HENT: Normocephalic, atraumatic, bilateral external ears normal, oropharynx moist, no oral exudates, nose normal. [] Eyes: PERRLA, EOMI, conjunctiva normal, no discharge. [] Neck: Normal range of motion, no tenderness, supple, no stridor. [] Cardiovascular:Heart rate regular rhythm, no murmur [] Lungs & Thorax: Bilateral breath sounds clear to auscultation [] Abdomen: Bowel sounds normal, soft, no tenderness, no masses, no pulsatile masses. [] Skin: Warm, dry, no erythema, no rash. [] Back: No tenderness, no CVA tenderness. [] Extremities: No tenderness, no cyanosis, no clubbing, ROM intact, no edema. [] Neurologic: Alert and oriented X 3, normal motor function, normal sensory function, no focal deficits noted. [] Psychologic: Affect normal, judgement normal, mood normal. [] Current Patient Data Vital Signs Vital Signs Date Time Temp Pulse Resp B/P (MAP) Pulse Ox O2 Delivery O2 Flow Rate FiO2 10/24/18 03:18 76 20 107/70 (82) 92 Nasal Cannula 3.0 10/23/18 23:38 97.7 97.7 Lab Values Laboratory Tests Test 10/24/18 00:02 10/24/18 02:09 10/24/18 04:36 White Blood Count 4.3 x10^3/uL (4.0-11.0) Red Blood Count 3.92 x10^6/uL (4.30-5.70) L Hemoglobin 12.4 g/dL (13.0-17.5) L Hematocrit 37.2 % (39.0-53.0) L Mean Corpuscular Volume 95 fL (79-100) Mean Corpuscular Hemoglobin 32 pg (25-35) Mean Corpuscular Hemoglobin Concent 33 g/dL (31-37) Red Cell Distribution Width 14.3 % (11.5-14.5) Platelet Count 395 x10^3/uL (140-400) Neutrophils (%) (Auto) 64 % (31-73) Lymphocytes (%) (Auto) 22 % (24-48) L Monocytes (%) (Auto) 10 % (0-9) H Eosinophils (%) (Auto) 3 % (0-3) Basophils (%) (Auto) 1 % (0-3) Neutrophils # (Auto) 2.8 x10^3uL (1.8-7.7) Lymphocytes # (Auto) 1.0 x10^3/uL (1.0-4.8) Monocytes # (Auto) 0.4 x10^3/uL (0.0-1.1) Eosinophils # (Auto) 0.1 x10^3/uL (0.0-0.7) Basophils # (Auto) 0.0 x10^3/uL (0.0-0.2) D-Dimer (Mesha) 0.83 ug/mlFEU (0.00-0.50) H Sodium Level 141 mmol/L (136-145) Potassium Level 4.0 mmol/L (3.5-5.1) Chloride Level 98 mmol/L (98-107) Carbon Dioxide Level 43 mmol/L (21-32) H Anion Gap 0 (6-14) L Blood Urea Nitrogen 9 mg/dL (8-26) Creatinine 0.6 mg/dL (0.7-1.3) L Estimated GFR (Cockcroft-Gault) 135.6 BUN/Creatinine Ratio 15 (6-20) Glucose Level 103 mg/dL (70-99) H Calcium Level 9.6 mg/dL (8.5-10.1) Magnesium Level 2.1 mg/dL (1.8-2.4) Total Bilirubin 0.1 mg/dL (0.2-1.0) L Aspartate Amino Transferase (AST) 26 U/L (15-37) Alanine Aminotransferase (ALT) 23 U/L (16-63) Alkaline Phosphatase 62 U/L (46-116) Creatine Kinase 50 U/L (39-308) Creatine Kinase MB (Mass) 2.0 ng/mL (0.0-3.6) Creatine Kinase MB Relative Index % (0-4) Troponin I Quantitative < 0.017 ng/mL (0.000-0.055) 0.018 ng/mL (0.000-0.055) RI-Tem-R-Type Natriuretic Peptide 332 pg/mL (0-124) H Total Protein 7.4 g/dL (6.4-8.2) Albumin 3.0 g/dL (3.4-5.0) L Albumin/Globulin Ratio 0.7 (1.0-1.7) L Lipase 214 U/L (73-393) Lactic Acid Level 0.6 mmol/L (0.4-2.0) Laboratory Tests 10/24/18 00:02 Laboratory Tests 10/24/18 00:02 EKG EKG @2334 NSR at 92bpm, NO ST elevation Radiology/Procedures Radiology/Procedures [] Course & Med Decision Making Course & Med Decision Making Pertinent Labs and Imaging studies reviewed. (See chart for details) [] Dragon Disclaimer Dragon Disclaimer This electronic medical record was generated, in whole or in part, using a voice recognition dictation system. Departure Departure Impression: Primary Impression: COPD (chronic obstructive pulmonary disease) Additional Impression: Chest pain Disposition: HOME, SELF-CARE (under hospice) Condition: STABLE Referrals: DEBORAH PICKENS MD (PCP) Patient Instructions: Chest Pain (Nonspecific), [id number], Chronic Obstructive Pulmonary Disease Exacerbation, [id number] Scripts Azithromycin (ZITHROMAX) 250 Mg Tablet 1 PKG PO UD for bronchitis, #6 TAB Take 2 tablets on day 1 and then 1 tablet each day for the next 4 days as directed Prov: DEBORAH MANRIQUEZ DO 10/24/18 Prednisone (PREDNISONE) 20 Mg Tablet 2 TAB PO DAILY, #10 TAB Prov: DEBORAH MANRIQUEZ DO 10/24/18 Problem Qualifiers Primary Impression: COPD (chronic obstructive pulmonary disease) COPD type: chronic bronchitis Chronic bronchitis type: unspecified Qualified Codes: J42 - Unspecified chronic bronchitis Additional Impression: Chest pain Chest pain type: unspecified Qualified Codes: R07.9 - Chest pain, unspecified DEBORAH MANRIQUEZ DO Oct 24, 2018 01:03
[2018-10-24] MEDS ORDERED: MORPHINE SULFATE 4 MG/ML VIAL. IV ONE (03:00)
[2018-10-24] MEDS ORDERED: IPRATRPIUM/ALBUTEROL 0.5/2.5MG 3 ML NEBU. NEB ONE (03:00)
[2018-10-24] MEDS ORDERED: CONTRAST GIVEN. MC PRN (03:00)
[2018-10-24] MEDS ORDERED: IOHEXOL 300 MG/ML 100ML VIAL. IV ONE (03:00)
[2018-10-24] MEDS ORDERED: MORPHINE SULFATE 10 MG/ML VIAL. IV ONE (03:00)
[2018-10-24] MEDS ORDERED: IV NORMAL SALINE 1000ML BAG 1,000 ML IV ONE (03:00)
[2018-10-24 03:30] VITALS: BP 111/61
--- NOTE | 2018-10-24 04:00 | RAD ---
Chest radiograph 10/24/2018 12:05 AM INDICATION: Shortness of air, chest pain COMPARISON: September 26, 2018 TECHNIQUE: Portable upright frontal view of the chest is provided. FINDINGS: The cardiomediastinal silhouette is similar in appearance. Architectural distortion is noted in the left upper lobe with increased nodular airspace consolidation. No pleural effusions, pulmonary vascular congestion or pneumothorax. Bronchial wall thickening and bronchiectasis is stable. IMPRESSION: Architectural distortion the left upper lobe with volume loss and increased nodular airspace consolidation. Findings may represent superimposed pulmonary infiltrate. Electronically signed by: Emam Marquez MD (10/24/2018 3:57 AM) [facility]
--- NOTE | 2018-10-24 04:00 | RAD ---
PQRS Compliance Statement: One or more of the following individualized dose reduction techniques were utilized for this examination: 1. Automated exposure control 2. Adjustment of the mA and/or kV according to patient size 3. Use of iterative reconstruction technique CT angiography chest with contrast 10/24/2018 3:33 AM INDICATION: Shortness of air, chest pain COMPARISON: CT chest, abdomen and pelvis March 09, 2018 TECHNIQUE: Axial CT images of the chest were obtained after the intravenous administration of 75 mL Omnipaque 300. Coronal and sagittal reformats are provided. Maximum intensity projection images of the thoracic vasculature are provided. FINDINGS: The thyroid gland is normal in appearance. There are no pathologically enlarged axillary, mediastinal or hilar lymph nodes. Stable 9 mm right hilar lymph node. The heart size is within normal limits. Trace pericardial fluid is present, likely physiologic. Thoracic aorta is normal in course and caliber. There is adequate opacification of the pulmonary arterial system. There there are no filling defects within the pulmonary arterial system to suggest acute or chronic pulmonary embolus. 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 Severe centrilobular and paraseptal emphysema. There is volume loss involving the left upper lobe with a cystic cavity at the superior lingula which may represent a chronic loculated pneumothorax. There is bronchiectasis in the left upper lung. There is increased nodular airspace density within the left upper lobe (series 3, image 37) measuring 2.4 x 2.0 cm. There is increased mild bronchial wall thickening in the left lingula. Moderate bronchial wall thickening is suggestive of chronic bronchitis. Stable nodular densities along the subpleural left lower lobe measuring up to 2.3 x 1.8 cm (series 3, image 21). No pleural effusions or pulmonary vascular congestion. Visualized portions of the upper abdomen are within normal limits. No suspicious osseous lesions are visualized. IMPRESSION: There is no evidence for acute or chronic pulmonary embolism. Posttreatment changes are identified in the left upper lung with persistent loculated pneumothorax at the left lung apex versus bleb with rim thickening. There is increased nodular airspace consolidation in the left upper lung which may represent superimposed infiltrate. 2-3 month follow-up chest CT is recommended. Severe centrilobular and paraseptal emphysema. Electronically signed by: Emma Marquez MD (10/24/2018 3:56 AM) [place] [id number]
[2018-10-24] MEDS ORDERED: AZIT250T PO (05:11)
[2018-10-24] MEDS ORDERED: PRED20TA PO (05:11)
--- NOTE | 2018-10-24 16:11 | EKG ---
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
== END 2018-10-24 05:43 | disposition home or self-care (01) ==
LOC: ER 23:30
DX: R07.89 Other chest pain (principal); J44.9 Chronic obstructive pulmonary disease, unspecified; Z88.8 Allergy status to other drugs, medicaments and biological substances
CPT/HCPCS: 36415; 71045; 71275; 80053; 82553; 83605; 83690; 83735; 83880; 84484; 85025; 85379; 93005; 94640; J2270; J7030; J7620; Q9967; 96374; 96376; 99284-25